=== PATIENT | female | born 1940 | race Caucasian/White ===

== ENCOUNTER → 2016-11-19 | Outpatient (CLI) | payer OTHER ==
[~2016-11-19] MED LIST: ALBU0.08 INH; ASPI81TA28 PO; BACL10TA PO; CLOP1TAB54 PO; COEN100C15 PO; DILT-115 PO; FURO-85 PO; ISOS120T5 PO; MAGN400T6 PO; METO25TA56 PO; MULT-506 PO; NITR0.4S UT; POTA10TA32 PO; PRAV20TA PO; SITA100T3 PO
--- NOTE | 2016-11-19 11:56 | DIAGNOSTIC IMAGING REPORT ---
ULTRASOUND VENOUS DOPPLER ULTRASOUND OF THE RIGHT LOWER EXTREMITY CLINICAL HISTORY: Right calf pain COMPARISON STUDY: 01/05/2015 FINDINGS: Real-time and color flow Doppler imaging were performed. Flow was seen within the femoral, popliteal and calf veins with no intraluminal thrombus demonstrated. The saphenous vein is patent. IMPRESSION: No evidence of right lower extremity DVT. Electronically signed by: Wisam Stover M.D. 11/19/2016 11:54 AM Dictated Date/Time: 11/19/2016 11:54 AM
== END | disposition home or self-care (01) ==
LOC: C.ULTR 11:20
PROVIDERS: ATTEND Nurse Practitioner
DX: M79.661 Pain in right lower leg (principal)

== ENCOUNTER → 2016-12-17 | Outpatient (CLI) | payer OTHER ==
[~2016-12-17] MED LIST changes: +ALBINS/ INH; +BENZ100C6 PO; +CRG625 PO; +DILT-113 PO; +FAMO40TA6 PO; +MOME100A INH; +OXGN; +POTA20TA16 PO; +PRAV80TA2 PO; +PRT40 PO; +VNTHFA/IN INH
[2016-12-17 17:37] LABS: ALT/SGPT 17 U/L (12-78); AST/SGOT 17 U/L (15-37); BLOOD UREA NITROGEN 16 mg/dl (7-18); BUN/CREATININE RATIO 14.9 (10-20); CALCIUM 9.6 mg/dl (8.5-10.1); CARBON DIOXIDE 31 mmol/L (21-32); CHLORIDE 105 mmol/L (98-107); GLUCOSE 134 mg/dl (70-99); POTASSIUM 4.1 mmol/L (3.5-5.1); SODIUM 140 mmol/L (136-145)
[2016-12-17 17:40] LABS: ALB/GLOB RATIO 0.7 (0.9-2); ALKALINE PHOSPHATASE 77 U/L (45-117); ESTIMATED AVERAGE GLUCOSE 146 mg/dl; HA1C FLAG Normal (Normal)
== END | disposition home or self-care (01) ==
LOC: C.LABPVFM 13:24
PROVIDERS: ATTEND Nurse Practitioner
DX: E11.9 Type 2 diabetes mellitus without complications (principal); I10 Essential (primary) hypertension; E87.6 Hypokalemia

== ENCOUNTER → 2017-07-14 | Outpatient (CLI) | payer OTHER ==
[~2017-07-14] MED LIST changes: -ALBINS/ INH; -BENZ100C6 PO; -CRG625 PO; -DILT-113 PO; -FAMO40TA6 PO; -MOME100A INH; -OXGN; -POTA20TA16 PO; -PRAV80TA2 PO; -PRT40 PO; -VNTHFA/IN INH
[2017-07-14 17:57] LABS: BLOOD UREA NITROGEN 21 mg/dl (7-18); BUN/CREATININE RATIO 18.3 (10-20); CALCIUM 9.3 mg/dl (8.5-10.1); CARBON DIOXIDE 29 mmol/L (21-32); CHLORIDE 101 mmol/L (98-107); CREATININE 1.16 mg/dl (0.60-1.20); GLUCOSE 110 mg/dl (70-99); POTASSIUM 3.7 mmol/L (3.5-5.1); SODIUM 137 mmol/L (136-145)
[2017-07-15 05:53] LABS: ESTIMATED AVERAGE GLUCOSE 137 mg/dl; HA1C FLAG Normal (Normal)
== END | disposition home or self-care (01) ==
LOC: C.LABPVFM 14:22
PROVIDERS: ATTEND Nurse Practitioner
DX: R06.00 Dyspnea, unspecified (principal); M79.669 Pain in unspecified lower leg; R53.1 Weakness; R63.5 Abnormal weight gain; E11.9 Type 2 diabetes mellitus without complications

== ENCOUNTER 2017-08-04 06:46 | Observation (INO) | payer OTHER ==
[~2017-08-04] VITALS: Ht 165.1 cm; Wt 116.1 kg
[2017-08-04] VITALS (7 sets, daily range): BP systolic 113–198; BP diastolic 70–87; PULSE 51–91; TEMP 36.4–37.5; O2SAT 92–100; Ht 165.1 cm; Wt 116.1 kg
--- NOTE | 2017-08-04 07:03 | EMERGENCY ROOM VISIT NOTE ---
ED Visit Note First contact with patient: 07:00 Resident Physician Supervision Note: I interviewed and examined the patient. Discussed with Dr. Arceo and agree with findings and plan as documented in the note. Documented By: Herrera Storey Problem List Medical Problems: (1) Anticoagulants,Lt,Current Use Status: Resolved (2) Aortic Valve Disorder Status: Chronic (3) Coronary Atherosclerosis Of [place] Coronary Vessel Status: Chronic (4) Diabetes Status: Chronic (5) Diverticulosis Colon (W/O Ment Of Hemorrhage) Status: Chronic (6) Heart Valve Replac Nec Status: Chronic (7) Hx of bronchitis Status: Chronic (8) Hyperlipidemia Nec/Nos Status: Chronic (9) Hypertension Nos Status: Chronic (10) Stented coronary artery Status: Chronic Current/Historical Medications Scheduled Aspirin (Aspirin Ec), 81 MG PO DAILY Clopidogrel Bisulfate (Plavix), 75 MG PO DAILY Coenzyme Q10 (Ubidecarenone) (Co Q10), 100 MG PO QPM Diltiazem Hcl Ext Rel (Tiazac), 240 MG PO DAILY Furosemide (Lasix), 40 MG PO DAILY Furosemide (Lasix), 20 MG PO QPM Isosorbide Mononitrate Ext Rel (Imdur Ext Rel), 120 MG PO BID Magnesium Oxide (Mag-Ox), 400 MG PO DAILY Metoprolol Tartrate (Lopressor) (Lopressor), 12.5 MG PO BID Multivitamin (Multivitamin), 1 TAB PO DAILY Nitroglycerin (Nitrostat), 0.4 MG UT PRN Potassium Chloride Microencaps (Potassium Chloride Er), 10 MEQ PO DAILY Pravastatin Sodium (Pravachol), 80 MG PO HS Sitagliptin Phosphate (Januvia), 100 MG PO DAILY Scheduled PRN Albuterol Soln (Proventil 0.083% 2.5MG/3ML), 2.5 MG INH QID PRN for TIGHTNESS CHEST Baclofen (Lioresal), 10 MG PO TID PRN for Muscle Spasms Allergies Coded Allergies: Cephalosporins (Verified Allergy, Mild, 03/06/16) Hydrocodone (Verified Allergy, Mild, 03/06/16) Neomycin (Verified Allergy, Mild, 03/06/16) Propoxyphene (Verified Allergy, Mild, 03/06/16) Sulfa Drugs (Verified Allergy, Mild, 03/06/16) Doxycycline (Verified Allergy, Unknown, UNKNOWN, 03/06/16) Vital Signs Date Time Temp Pulse Resp B/P (MAP) Pulse Ox O2 Delivery O2 Flow Rate FiO2 08/04/17 07:02 65 Departure Information Referrals Hilaria Myers C.R.N.P (PCP) Patient Instructions [facility]
[2017-08-04 07:23] LABS: BASO % 0.3 %; BASO ABS # 0.03 K/uL (0-0.2); COMPLETE YES; EOS % 1.8 %; HEMATOCRIT 37.8 % (37-47); IG% 0.3 %; LYMPH % 13.4 %; LYMPH ABS # 1.33 K/uL (1.2-3.4); MEAN CELL VOLUME 98.7 fL (80-100); MEAN CORPUSCULAR HEMOGLOBIN 34.2 pg (25-34); MEAN CORPUSCULAR HGB CONC 34.7 g/dl (32-36); MEAN PLATELET VOLUME 10.6 fL (7.4-10.4); MONO % 8.2 %; PLATELET COUNT 207 K/uL (130-400); RED BLOOD COUNT 3.83 M/uL (4.2-5.4)
[2017-08-04] MEDS ORDERED: NITROGLYCERIN OINT 2% 1GM PACKET EXT ONE (07:30)
[2017-08-04 07:33] LABS: ALT/SGPT 16 U/L (12-78); AST/SGOT 15 U/L (15-37); BLOOD UREA NITROGEN 25 mg/dl (7-18); BUN/CREATININE RATIO 18.3 (10-20); CALCIUM 8.7 mg/dl (8.5-10.1); CARBON DIOXIDE 26 mmol/L (21-32); CHLORIDE 101 mmol/L (98-107); CREATININE 1.39 mg/dl (0.60-1.20); GLUCOSE 169 mg/dl (70-99); POTASSIUM 3.3 mmol/L (3.5-5.1); SODIUM 132 mmol/L (136-145)
[2017-08-04 07:39] LABS: ALB/GLOB RATIO 0.7 (0.9-2); ALKALINE PHOSPHATASE 89 U/L (45-117)
--- NOTE | 2017-08-04 07:45 | EMERGENCY ROOM VISIT NOTE ---
History First contact with patient: 07:00 Chief Complaint: CHEST PAIN Stated Complaint: CHEST PAIN Nursing Triage Summary: pt awoke at 0400am with midsternal chest pain, some radiation into right arm pt took 3 ntg with no relief this am, ems gave her 325mg asa pt has copd and has nonproductive cough was diaphoretic and did have emesis has hypertension and did not take am meds History of Present Illness The patient is a 77 year old female who presents to the Emergency Room with complaints of chest pain since 4am. Patient has a PMH significant for bioprosthetic aortic valve, HTN, HLD, CAD, COPD and angina. She says that yesterday she had two episodes of angina that were relieved with two sublingual nitro. She said that she went to bed and was awaken at 4 am again with substernal chest pain, described as tight and dull. The patient proceed to take her nitro tabs. This time her pain persisted and she became diaphoretic and nauseated. The patient was given 4 aspirin in the ambulance. She came into the ED without remission in her pain symptoms. Patient describes chronic SOB on 3 L home O2. She denies cough, LE swelling, syncope. Review of Systems see below Constitutional: + sweats, No fever, No chills Respiratory: No cough, No sputum, No wheezing, No shortness of breath, No dyspnea on exertion Cardiovascular: + chest pain, No edema, No palpitations Abdomen: No pain, No nausea, No vomiting, No diarrhea Past Medical/Surgical History Medical Problems: (1) Anticoagulants,Lt,Current Use (2) Aortic Valve Disorder (3) Coronary Atherosclerosis Of [place] Coronary Vessel (4) Diabetes (5) Diverticulosis Colon (W/O Ment Of Hemorrhage) (6) Heart Valve Replac Nec (7) Hx of bronchitis (8) Hyperlipidemia Nec/Nos (9) Hypertension Nos (10) Stented coronary artery Family History FHx: diabetes FHx: heart disease FHx: hypertension Social History Smoking Status: Never Smoker Alcohol Use: none Drug Use: none Marital Status: Housing Status: lives alone Occupation Status: retired Current/Historical Medications Scheduled Albuterol Sulf (Proventil 0.083% 2.5MG/3ML), 2.5 MG INH BID Aspirin (Aspirin Ec), 81 MG PO DAILY Clopidogrel Bisulfate (Plavix), 75 MG PO DAILY Coenzyme Q10 (Ubidecarenone) (Co Q10), 100 MG PO QPM Diltiazem Hcl Ext Rel (Tiazac), 240 MG PO DAILY Famotidine (Pepcid), 40 MG PO DAILY Furosemide (Lasix), 20 MG PO TID Home O2 Therapy (Oxygen), 3 LITERS NA PRN Isosorbide Mononitrate Ext Rel (Imdur Ext Rel), 120 MG PO BID Magnesium Oxide (Mag-Ox), 400 MG PO DAILY Metoprolol Tartrate (Lopressor) (Lopressor), 12.5 MG PO BID Mometasone Furoate-Formoterol (Dulera 100/5 Mcg), 1 PUFF INH BID Multivitamin (Multivitamin), 1 TAB PO DAILY Nitroglycerin (Nitrostat), 0.4 MG UT PRN Potassium Chloride Microencaps (Potassium Chloride Er), 10 MEQ PO DAILY Potassium Ext Rel (Klor-Con), 20 MEQ PO DAILY Pravastatin Sodium (Pravastatin Sodium), 80 MG PO QPM Sitagliptin Phosphate (Januvia), 100 MG PO DAILY Scheduled PRN Albuterol Hfa (Ventolin Hfa), 2-4 PUFFS INH Q6H PRN for SOB/Wheezing Benzonatate (Tessalon Perles), 1 CAP PO UD PRN for Cough Physical Exam Vital Signs Date Time Temp Pulse Resp B/P (MAP) Pulse Ox O2 Delivery O2 Flow Rate FiO2 08/04/17 10:56 36.6 65 20 158/76 (103) 98 Nasal Cannula 3.0 08/04/17 10:45 60 20 146/113 99 Nasal Cannula 3.0 08/04/17 10:37 36.4 67 20 198/87 100 Nasal Cannula 3.0 08/04/17 10:11 58 08/04/17 09:01 198/87 08/04/17 08:51 59 20 99 08/04/17 08:36 197/75 08/04/17 08:21 65 19 99 08/04/17 08:14 205/83 08/04/17 07:51 60 20 100 08/04/17 07:46 60 21 100 08/04/17 07:31 207/82 08/04/17 07:16 60 22 98 08/04/17 07:08 99 Nasal Cannula 3.0 08/04/17 07:02 65 08/04/17 07:01 211/125 08/04/17 06:58 36.4 64 20 212/81 99 Nasal Cannula 3.0 08/04/17 06:58 99 Nasal Cannula 3.0 08/04/17 06:56 212/81 Physical Exam see below General Appearance: WD/WN, + mild distress Head: normocephalic, atraumatic Respiratory/Chest: chest non-tender, lungs clear, + decreased breath sounds Cardiovascular: regular rate, rhythm, no edema, no gallop, no JVD Abdomen / GI: normal bowel sounds, non tender, soft, no organomegaly, no pulsatile mass Neurologic/Psych: alert, normal mood/affect, normal reflexes, oriented x 3 Medical Decision & Procedures Laboratory Results 08/04/17 06:30 Red Blood Count 3.83, Mean Corpuscular Volume 98.7, Mean Corpuscular Hemoglobin 34.2, Mean Corpuscular Hemoglobin Concent 34.7, Mean Platelet Volume 10.6, Neutrophils (%) (Auto) 76.0, Lymphocytes (%) (Auto) 13.4, Monocytes (%) (Auto) 8.2, Eosinophils (%) (Auto) 1.8, Basophils (%) (Auto) 0.3, Neutrophils # (Auto) 7.52, Lymphocytes # (Auto) 1.33, Monocytes # (Auto) 0.81, Eosinophils # (Auto) 0.18, Basophils # (Auto) 0.03 08/04/17 06:30 Test 08/04/17 06:30 08/04/17 11:20 White Blood Count 9.90 K/uL (4.8-10.8) Red Blood Count 3.83 M/uL (4.2-5.4) Hemoglobin 13.1 g/dL (12.0-16.0) Hematocrit 37.8 % (37-47) Mean Corpuscular Volume 98.7 fL (80-100) Mean Corpuscular Hemoglobin 34.2 pg (25-34) Mean Corpuscular Hemoglobin Concent 34.7 g/dl (32-36) Platelet Count 207 K/uL (130-400) Mean Platelet Volume 10.6 fL (7.4-10.4) Neutrophils (%) (Auto) 76.0 % Lymphocytes (%) (Auto) 13.4 % Monocytes (%) (Auto) 8.2 % Eosinophils (%) (Auto) 1.8 % Basophils (%) (Auto) 0.3 % Neutrophils # (Auto) 7.52 K/uL (1.4-6.5) Lymphocytes # (Auto) 1.33 K/uL (1.2-3.4) Monocytes # (Auto) 0.81 K/uL (0.11-0.59) Eosinophils # (Auto) 0.18 K/uL (0-0.5) Basophils # (Auto) 0.03 K/uL (0-0.2) RDW Standard Deviation 47.3 fL (36.4-46.3) RDW Coefficient of Variation 13.1 % (11.5-14.5) Immature Granulocyte % (Auto) 0.3 % Immature Granulocyte # (Auto) 0.03 K/uL (0.00-0.02) Anion Gap 5.0 mmol/L (3-11) Est Creatinine Clear Calc Drug Dose 42.8 ml/min Estimated GFR () 42.0 Estimated GFR (Non- 36.2 BUN/Creatinine Ratio 18.3 (10-20) Calcium Level 8.7 mg/dl (8.5-10.1) Total Bilirubin 0.3 mg/dl (0.2-1) Aspartate Amino Transf (AST/SGOT) 15 U/L (15-37) Alanine Aminotransferase (ALT/SGPT) 16 U/L (12-78) Alkaline Phosphatase 89 U/L (45-117) Total Protein 8.4 gm/dl (6.4-8.2) Albumin 3.5 gm/dl (3.4-5.0) Globulin 4.9 gm/dl (2.5-4.0) Albumin/Globulin Ratio 0.7 (0.9-2) Lipase 149 U/L (73-393) Bedside Glucose 147 mg/dl (70-90) Medications Administered Medications (Trade) Dose Ordered Sig/Trixie Route Start Time Stop Time Status Last Admin Dose Admin Nitroglycerin (Nitroglycerin 2% Oint) 1 inch NOW ONCE EXT 08/04/17 07:30 08/04/17 07:31 DC 08/04/17 07:41 1 INCH Morphine Sulfate (MoRPHine SULFATE INJ) 4 mg NOW STAT IV 08/04/17 07:59 08/04/17 08:02 DC 08/04/17 08:30 4 MG Ondansetron HCl (Zofran Inj) 4 mg NOW STAT IV 08/04/17 07:59 08/04/17 08:02 DC 08/04/17 08:29 4 MG Potassium Chloride (Janice Ciel Elix) 40 meq NOW STAT PO 08/04/17 08:05 08/04/17 08:07 DC 08/04/17 08:28 40 MEQ Aspirin (Ecotrin Tab) 81 mg DAILY PO 08/04/17 10:00 09/03/17 09:59 08/04/17 12:35 81 MG Clopidogrel Bisulfate (plAVix TAB) 75 mg DAILY PO 08/04/17 10:00 09/03/17 09:59 08/04/17 12:35 75 MG Diltiazem HCl (TIAzac CAP) 240 mg DAILY PO 08/04/17 10:00 09/03/17 09:59 08/04/17 12:58 240 MG Famotidine (Pepcid Tab) 40 mg DAILY PO 08/04/17 10:00 09/03/17 09:59 08/04/17 12:34 40 MG Isosorbide Mononitrate (Imdur Ext Rel Tab) 120 mg BID PO 08/04/17 10:00 09/03/17 09:59 08/04/17 12:35 120 MG Magnesium Oxide (Mag-Ox Tab) 400 mg DAILY PO 08/04/17 10:00 09/03/17 09:59 08/04/17 12:34 400 MG Metoprolol Tartrate (Lopressor Tab) 12.5 mg BID PO 08/04/17 10:00 09/03/17 09:59 08/04/17 12:34 12.5 MG Multivitamins (Multivitamin Tab) 1 tab DAILY PO 08/04/17 10:00 09/03/17 09:59 08/04/17 12:35 1 TAB Potassium Chloride (Klor-Con Tab) 20 meq DAILY PO 08/04/17 10:00 09/03/17 09:59 08/04/17 12:36 20 MEQ Pantoprazole Sodium (Protonix Tab) 40 mg QAM PO 08/04/17 10:00 09/03/17 09:59 08/04/17 12:35 40 MG ECG Rhythm: normal sinus Findings: nonspecific-ST abn, no ectopy ED Course 700 History and Physical was performed on the patient 715 ordered the following labs and test; EKG, CXR, Troponin, CKMB, CBC, CMP, Lipase, CT for dissection and CT for PE 730 Reaccessed the patient 745 Patient given nitro paste, zofran 4 mg, morphine 4 mg and potassium [address] 915 Discussed patient with the hospitalist team Medical Decision 77 yo female with substernal chest pain since 4am Considering the following differential; ACS, unstable anginal, aortic dissection , PE, pleuritis, costochondritis Patients BP was 211/125 on presentation. Patient was given nitro paste. EKG showed NSR with some flat T waves, but no ectopy. Initial trop was 0.027 Patient was given Morphine for pain and Zofran for nausea as well as potassium. CT were negative for dissection and PE. No signs of acute heart failure on exam or CXR. Considering the patient's presenting and persistent chest pain symptoms, coupled with her PMH of CAD and aortic valve replacement requires further inpatient observation and workup. Discussed the admission with Dr. Duron. Impression Primary Impression: Chest pain Departure Information Dispostion Admitted as an inpatient Referrals Hilaria Myers C.R.N.P (PCP) Patient Instructions [facility]
[2017-08-04] MEDS ORDERED: ONDANSETRON INJ 2 MG/ML 2 ML VIAL IV STA (07:59)
[2017-08-04] MEDS ORDERED: MoRPHine SULFATE 4 MG/ML 1 ML CARP\\VIAL IV STA (07:59)
--- NOTE | 2017-08-04 08:01 | DIAGNOSTIC IMAGING REPORT ---
CHEST ONE VIEW PORTABLE CLINICAL HISTORY: Chest pain. COMPARISON STUDY: Chest radiograph November 10, [address] November 11, 2014. FINDINGS: Note is made of median sternotomy wires and a prosthetic aortic valve. Cardiomediastinal silhouette is stable allowing for patient rotation. There is no pneumothorax. There may be a small left pleural effusion with left basilar opacity. There is pulmonary vascular congestion without overt pulmonary edema. IMPRESSION: 1. Mild left basilar opacity with a possible small left pleural effusion. 2. Pulmonary vascular congestion. Electronically signed by: Jefferson Landaverde M.D. 08/04/2017 8:00 AM Dictated Date/Time: 08/04/2017 7:58 AM
[2017-08-04] MEDS ORDERED: POTASSIUM CHLORIDE 20 MEQ/15 ML UDC PO STA (08:05)
[2017-08-04] MEDS ORDERED: OPTIRAY 320 IV PRN (08:15)
--- NOTE | 2017-08-04 08:28 | DIAGNOSTIC IMAGING REPORT ---
CHEST COMBO ANGIO DISSECTION HISTORY: 77 years-old female presents with acute substernal chest pain. History of lobulated partially calcified paraspinal mass lesion COMPARISON: CT chest 11/11/2016 and 10/16/2009 TECHNIQUE: CTA of the chest was obtained both with and without the use of contrast. 93 mL Optiray 320 IV contrast was administered. 3-D coronal and sagittal MIPS were obtained from the data set and cemented for review. A dose lowering technique was used consistent with the principals of BRENDA. All measurements were obtained according to NASCET criteria. FINDINGS: CTA: On the noncontrast scan there is no evidence of intramural hematoma. There is moderate multichamber cardiac enlargement. Prior median sternotomy with prosthetic aortic valve present. Dense calcifications of the mitral annulus are noted. Coronary arterial disease. There is no aortic dissection or aneurysm identified. There is moderate to severe mixed atheromatous and atherosclerotic plaquing of the thoracic aorta. Image great vessels are patent. The opacified pulmonary arterial tree is unremarkable without focal filling defect to suggest pulmonary thromboembolic disease. CT CHEST: Multinodular thyroid with nodule of the right thyroid measuring up to 2.2 x 1.5 cm. Calcifications of the right thyroid are also seen. These findings appear unchanged from comparison study. There is no pathologic adenopathy of the chest identified. There is redemonstration of a lobulated partially calcified ovoid circumscribed left paraspinal lesion at the level of the medial basal left lower lobe, 8.2 x 2.5 cm which has slightly decreased in size from comparison study. This was also noted on comparison CT chest 10/16/2009 suggesting benign etiology. There is no pneumothorax, pleural effusion, focal airspace consolidation or overt pulmonary edema. Subpleural reticular opacities of the lung bases suggest areas of atelectasis and/or minimal scarring. No suspicious pulmonary nodules identified. Central airways are patent. Cholelithiasis. No acute mildly of the imaged upper abdomen. Bones of the chest appear grossly intact. Degenerative changes involve the bilateral shoulders. The bones appear mildly demineralized. Multilevel endplate spurring of the spine. IMPRESSION: 1. No acute intrathoracic abnormality identified, specifically no aortic dissection or aneurysm. 2. Cardiomegaly with prior median sternotomy and aortic valve replacement. 3. Partially calcified soft tissue attenuating left paraspinal lesion at the level of the basal left lower lobe has slightly decreased in size from comparison study. This has been present dating back to at least 10/16/2009 suggesting benign etiology. The above report was generated using voice recognition software. It may contain grammatical, syntax or spelling errors. Electronically signed by: Tonny Bethea M.D. 08/04/2017 8:26 AM Dictated Date/Time: 08/04/2017 8:17 AM
[2017-08-04] MEDS ORDERED: ALBINS/ INH (08:41)
[2017-08-04] MEDS ORDERED: POTA20TA16 PO (08:41)
[2017-08-04] MEDS ORDERED: OXGN (08:41)
[2017-08-04] MEDS ORDERED: PRAV80TA2 PO (08:41)
[2017-08-04] MEDS ORDERED: FAMO40TA6 PO (08:41)
[2017-08-04] MEDS ORDERED: BENZ100C6 PO (08:41)
[2017-08-04] MEDS ORDERED: MOME100A INH (08:44)
[2017-08-04] MEDS ORDERED: VNTHFA/IN INH (08:44)
[2017-08-04] MEDS ORDERED: POLYETHYLENE (MIRALAX) 17 GM PACK PO PRN (10:00)
[2017-08-04] MEDS ORDERED: MoRPHine SULFATE 2 MG/ML CARP IV PRN (10:00)
[2017-08-04] MEDS ORDERED: ACETAMINOPHEN 325 MG TAB PO PRN (10:00)
[2017-08-04] MEDS ORDERED: MAGNESIUM HYDROXIDE SUSP 30 ML UDC PO PRN (10:00)
[2017-08-04] MEDS ORDERED: GI COCKTAIL PO SCH (10:00)
[2017-08-04] MEDS ORDERED: ALBUTEROL HFA 8 GM INHALER INH PRN (10:00)
[2017-08-04] MEDS ORDERED: ALUMINUM/MAGNESIUM/SIMETH (MAALOX MAX) 30 ML UDC PO PRN (10:00)
[2017-08-04] MEDS ORDERED: HydrALAZINE HCL 20 MG/ML VIAL IV. PRN (10:00)
[2017-08-04] MEDS ORDERED: ONDANSETRON INJ 2 MG/ML 2 ML VIAL IV PRN (10:00)
--- NOTE | 2017-08-04 10:29 | EMERGENCY ROOM VISIT NOTE ---
History Report prepared by Amber: Jocelyn Mas Under the Supervision of: Dr. Herrera Storey M.D. First contact with patient: 07:00 Chief Complaint: CHEST PAIN Stated Complaint: CHEST PAIN Nursing Triage Summary: pt awoke at 0400am with midsternal chest pain, some radiation into right arm pt took 3 ntg with no relief this am, ems gave her 325mg asa pt has copd and has nonproductive cough was diaphoretic and did have emesis has hypertension and did not take am meds History of Present Illness The patient is a 77 year old female who presents to the Emergency Room with complaints of persistent chest pain that began three hours prior to arrival. She currently rates her discomfort as an 8/10 in severity. The patient states that she woke around 0400 with chest pain that radiated into her right arm. She states that she tried taking 3 nitroglycerin without relief and EMS additionally reports giving the patient 325 mg of aspirin without relief. The patient states that she has a history of COPD and has a nonproductive cough. She states that she has been diaphoretic and she vomited. The patient reports a history of hypertension and states that she did not take her medication this morning. She states that she has a history of heart disease, but is unsure specific diagnoses. The patient denies any abdominal pain. Source of History: patient, EMS Onset: three hours prior to arrival Position: chest Symptom Intensity: 8/10 Timing: other (persistent) Associated Symptoms: + diaphoresis, + cough, + vomiting, No abdominal pain Review of Systems See HPI for pertinent positives & negatives. A total of 10 systems reviewed and were otherwise negative. Past Medical & Surgical Medical Problems: (1) Anticoagulants,Lt,Current Use (2) Aortic Valve Disorder (3) Coronary Atherosclerosis Of [place] Coronary Vessel (4) Diabetes (5) Diverticulosis Colon (W/O Ment Of Hemorrhage) (6) Heart Valve Replac Nec (7) Hx of bronchitis (8) Hyperlipidemia Nec/Nos (9) Hypertension Nos (10) Stented coronary artery Family History FHx: diabetes FHx: heart disease FHx: hypertension Social History Smoking Status: Never Smoker Alcohol Use: none Drug Use: none Marital Status: Housing Status: lives alone Occupation Status: retired Current/Historical Medications Scheduled Albuterol Sulf (Proventil 0.083% 2.5MG/3ML), 2.5 MG INH BID Aspirin (Aspirin Ec), 81 MG PO DAILY Clopidogrel Bisulfate (Plavix), 75 MG PO DAILY Coenzyme Q10 (Ubidecarenone) (Co Q10), 100 MG PO QPM Diltiazem Hcl Ext Rel (Tiazac), 240 MG PO DAILY Famotidine (Pepcid), 40 MG PO DAILY Furosemide (Lasix), 20 MG PO TID Home O2 Therapy (Oxygen), 3 LITERS NA PRN Isosorbide Mononitrate Ext Rel (Imdur Ext Rel), 120 MG PO BID Magnesium Oxide (Mag-Ox), 400 MG PO DAILY Metoprolol Tartrate (Lopressor) (Lopressor), 12.5 MG PO BID Mometasone Furoate-Formoterol (Dulera 100/5 Mcg), 1 PUFF INH BID Multivitamin (Multivitamin), 1 TAB PO DAILY Nitroglycerin (Nitrostat), 0.4 MG UT PRN Pantoprazole (Pantoprazole Sodium), 40 MG PO QAM Potassium Chloride Microencaps (Potassium Chloride Er), 10 MEQ PO DAILY Potassium Ext Rel (Klor-Con), 20 MEQ PO DAILY Pravastatin Sodium (Pravastatin Sodium), 80 MG PO QPM Sitagliptin Phosphate (Januvia), 100 MG PO DAILY Scheduled PRN Albuterol Hfa (Ventolin Hfa), 2-4 PUFFS INH Q6H PRN for SOB/Wheezing Benzonatate (Tessalon Perles), 1 CAP PO UD PRN for Cough Allergies Coded Allergies: Cephalosporins (Verified Allergy, Mild, 08/04/17) Hydrocodone (Verified Allergy, Mild, 08/04/17) Neomycin (Verified Allergy, Mild, 08/04/17) Propoxyphene (Verified Allergy, Mild, 08/04/17) Doxycycline (Verified Allergy, Unknown, UNKNOWN, 08/04/17) Sulfa Antibiotics (Verified Allergy, Unknown, ., 08/04/17) Physical Exam Vital Signs Date Time Temp Pulse Resp B/P (MAP) Pulse Ox O2 Delivery O2 Flow Rate FiO2 08/04/17 10:56 36.6 65 20 158/76 (103) 98 Nasal Cannula 3.0 08/04/17 10:45 60 20 146/113 99 Nasal Cannula 3.0 08/04/17 10:37 36.4 67 20 198/87 100 Nasal Cannula 3.0 08/04/17 10:11 58 08/04/17 09:01 198/87 08/04/17 08:51 59 20 99 08/04/17 08:36 197/75 08/04/17 08:21 65 19 99 08/04/17 08:14 205/83 08/04/17 07:51 60 20 100 08/04/17 07:46 60 21 100 08/04/17 07:31 207/82 08/04/17 07:16 60 22 98 08/04/17 07:08 99 Nasal Cannula 3.0 08/04/17 07:02 65 08/04/17 07:01 211/125 08/04/17 06:58 36.4 64 20 212/81 99 Nasal Cannula 3.0 08/04/17 06:58 99 Nasal Cannula 3.0 08/04/17 06:56 212/81 Physical Exam GENERAL: Patient is a healthy-appearing well-nourished female HEAD: Normocephalic atraumatic EYES: Ocular movements intact pupils equal and react to light OROPHARYNX mucous membranes are moist no exudates present no erythema or edema present NECK: Supple no nuchal rigidity CHEST: Good equal expansion LUNGS: Clear and equal to auscultation CARDIAC: Normal S1 and S2 ABDOMEN: Soft nontender no guarding BACK: No CVA tenderness EXTREMITIES: No pain upon palpation normal muscle strength in all groups no clubbing cyanosis or edema NEURO: Patient is following commands and answering questions appropriately. Alert and oriented x3 Cranial Nerves 2-12 grossly intact Medical Decision & Procedures ER Provider Diagnostic Interpretation: X-ray results as stated below per interpretation by me and the radiologist: CHEST ONE VIEW PORTABLE CLINICAL HISTORY: Chest pain. COMPARISON STUDY: Chest radiograph November 10, [address] November 11, 2014. FINDINGS: Note is made of median sternotomy wires and a prosthetic aortic valve. Cardiomediastinal silhouette is stable allowing for patient rotation. There is no pneumothorax. There may be a small left pleural effusion with left basilar opacity. There is pulmonary vascular congestion without overt pulmonary edema. IMPRESSION: 1. Mild left basilar opacity with a possible small left pleural effusion. 2. Pulmonary vascular congestion. Electronically signed by: Jefferson Landaverde M.D. 08/04/2017 8:00 AM Dictated Date/Time: 08/04/2017 7:58 AM CHEST COMBO ANGIO DISSECTION HISTORY: 77 years-old female presents with acute substernal chest pain. History of lobulated partially calcified paraspinal mass lesion COMPARISON: CT chest 11/11/2016 and 10/16/2009 TECHNIQUE: CTA of the chest was obtained both with and without the use of contrast. 93 mL Optiray 320 IV contrast was administered. 3-D coronal and sagittal MIPS were obtained from the data set and cemented for review. A dose lowering technique was used consistent with the principals of BRENDA. All measurements were obtained according to NASCET criteria. FINDINGS: CTA: On the noncontrast scan there is no evidence of intramural hematoma. There is moderate multichamber cardiac enlargement. Prior median sternotomy with prosthetic aortic valve present. Dense calcifications of the mitral annulus are noted. Coronary arterial disease. There is no aortic dissection or aneurysm identified. There is moderate to severe mixed atheromatous and atherosclerotic plaquing of the thoracic aorta. Image great vessels are patent. The opacified pulmonary arterial tree is unremarkable without focal filling defect to suggest pulmonary thromboembolic disease. CT CHEST: Multinodular thyroid with nodule of the right thyroid measuring up to 2.2 x 1.5 cm. Calcifications of the right thyroid are also seen. These findings appear unchanged from comparison study. There is no pathologic adenopathy of the chest identified. There is redemonstration of a lobulated partially calcified ovoid circumscribed left paraspinal lesion at the level of the medial basal left lower lobe, 8.2 x 2.5 cm which has slightly decreased in size from comparison study. This was also noted on comparison CT chest 10/16/2009 suggesting benign etiology. There is no pneumothorax, pleural effusion, focal airspace consolidation or overt pulmonary edema. Subpleural reticular opacities of the lung bases suggest areas of atelectasis and/or minimal scarring. No suspicious pulmonary nodules identified. Central airways are patent. Cholelithiasis. No acute mildly of the imaged upper abdomen. Bones of the chest appear grossly intact. Degenerative changes involve the bilateral shoulders. The bones appear mildly demineralized. Multilevel endplate spurring of the spine. IMPRESSION: 1. No acute intrathoracic abnormality identified, specifically no aortic dissection or aneurysm. 2. Cardiomegaly with prior median sternotomy and aortic valve replacement. 3. Partially calcified soft tissue attenuating left paraspinal lesion at the level of the basal left lower lobe has slightly decreased in size from comparison study. This has been present dating back to at least 10/16/2009 suggesting benign etiology. The above report was generated using voice recognition software. It may contain grammatical, syntax or spelling errors. Electronically signed by: Tonny Bethea M.D. 08/04/2017 8:26 AM Dictated Date/Time: 08/04/2017 8:17 AM Laboratory Results 08/04/17 06:30 Red Blood Count 3.83, Mean Corpuscular Volume 98.7, Mean Corpuscular Hemoglobin 34.2, Mean Corpuscular Hemoglobin Concent 34.7, Mean Platelet Volume 10.6, Neutrophils (%) (Auto) 76.0, Lymphocytes (%) (Auto) 13.4, Monocytes (%) (Auto) 8.2, Eosinophils (%) (Auto) 1.8, Basophils (%) (Auto) 0.3, Neutrophils # (Auto) 7.52, Lymphocytes # (Auto) 1.33, Monocytes # (Auto) 0.81, Eosinophils # (Auto) 0.18, Basophils # (Auto) 0.03 Test 08/04/17 06:30 White Blood Count 9.90 K/uL (4.8-10.8) Red Blood Count 3.83 M/uL (4.2-5.4) Hemoglobin 13.1 g/dL (12.0-16.0) Hematocrit 37.8 % (37-47) Mean Corpuscular Volume 98.7 fL (80-100) Mean Corpuscular Hemoglobin 34.2 pg (25-34) Mean Corpuscular Hemoglobin Concent 34.7 g/dl (32-36) Platelet Count 207 K/uL (130-400) Mean Platelet Volume 10.6 fL (7.4-10.4) Neutrophils (%) (Auto) 76.0 % Lymphocytes (%) (Auto) 13.4 % Monocytes (%) (Auto) 8.2 % Eosinophils (%) (Auto) 1.8 % Basophils (%) (Auto) 0.3 % Neutrophils # (Auto) 7.52 K/uL (1.4-6.5) Lymphocytes # (Auto) 1.33 K/uL (1.2-3.4) Monocytes # (Auto) 0.81 K/uL (0.11-0.59) Eosinophils # (Auto) 0.18 K/uL (0-0.5) Basophils # (Auto) 0.03 K/uL (0-0.2) RDW Standard Deviation 47.3 fL (36.4-46.3) RDW Coefficient of Variation 13.1 % (11.5-14.5) Immature Granulocyte % (Auto) 0.3 % Immature Granulocyte # (Auto) 0.03 K/uL (0.00-0.02) Total Bilirubin 0.3 mg/dl (0.2-1) Aspartate Amino Transf (AST/SGOT) 15 U/L (15-37) Alanine Aminotransferase (ALT/SGPT) 16 U/L (12-78) Alkaline Phosphatase 89 U/L (45-117) Total Protein 8.4 gm/dl (6.4-8.2) Albumin 3.5 gm/dl (3.4-5.0) Globulin 4.9 gm/dl (2.5-4.0) Albumin/Globulin Ratio 0.7 (0.9-2) Lipase 149 U/L (73-393) Labs reviewed by ED physician. Medications Administered Medications (Trade) Dose Ordered Sig/Trixie Route Start Time Stop Time Status Last Admin Dose Admin Nitroglycerin (Nitroglycerin 2% Oint) 1 inch NOW ONCE EXT 08/04/17 07:30 08/04/17 07:31 DC 08/04/17 07:41 1 INCH Morphine Sulfate (MoRPHine SULFATE INJ) 4 mg NOW STAT IV 08/04/17 07:59 08/04/17 08:02 DC 08/04/17 08:30 4 MG Ondansetron HCl (Zofran Inj) 4 mg NOW STAT IV 08/04/17 07:59 08/04/17 08:02 DC 08/04/17 08:29 4 MG Potassium Chloride (Janice Ciel Elix) 40 meq NOW STAT PO 08/04/17 08:05 08/04/17 08:07 DC 08/04/17 08:28 40 MEQ Aspirin (Ecotrin Tab) 81 mg DAILY PO 08/04/17 10:00 18 09:59 08/05/17 08:09 81 MG Clopidogrel Bisulfate (plAVix TAB) 75 mg DAILY PO 08/04/17 10:00 09/03/17 09:59 08/05/17 08:09 75 MG Diltiazem HCl (TIAzac CAP) 240 mg DAILY PO 08/04/17 10:00 09/03/17 09:59 08/05/17 08:08 240 MG Famotidine (Pepcid Tab) 40 mg DAILY PO 08/04/17 10:00 09/03/17 09:59 08/05/17 08:09 40 MG Isosorbide Mononitrate (Imdur Ext Rel Tab) 120 mg BID PO 08/04/17 10:00 09/03/17 09:59 08/05/17 08:10 120 MG Magnesium Oxide (Mag-Ox Tab) 400 mg DAILY PO 08/04/17 10:00 09/03/17 09:59 08/05/17 08:08 400 MG Metoprolol Tartrate (Lopressor Tab) 12.5 mg BID PO 08/04/17 10:00 09/03/17 09:59 08/05/17 08:10 12.5 MG Multivitamins (Multivitamin Tab) 1 tab DAILY PO 08/04/17 10:00 09/03/17 09:59 08/05/17 08:09 1 TAB Potassium Chloride (Klor-Con Tab) 20 meq DAILY PO 08/04/17 10:00 09/03/17 09:59 08/05/17 08:08 20 MEQ Pantoprazole Sodium (Protonix Tab) 40 mg QAM PO 08/04/17 10:00 09/03/17 09:59 08/05/17 08:09 40 MG ECG Indication: chest pain Rate (beats per minute): 66 Rhythm: normal sinus Findings: no acute ischemic change, no ectopy ED Course 0716: Past medical records reviewed. The patient was evaluated in room A3. A complete history and physical examination was performed. 0730: Ordered Nitroglycerin 1 inch EXT. 0753: I reevaluated the patient and she is still having pain. 0759: Ordered Zofran Inj 4 mg IV, Morphine Sulfate 4 mg IV. 0805: Ordered Potassium Chloride 40 meq PO. 0906: I reevaluated the patient and she is resting more comfortably. I discussed the test results with her and I discussed the treatment plan. She verbalized complete understanding and agreement. She will be evaluated for further treatment. 0910: I discussed the patients case with JOSE JUAN Clark. He will evaluate the patient for further treatment. Medical Decision Resident Physician Supervision Note: I interviewed and examined the patient. Discussed with Dr. Arceo and agree with findings and plan as documented in the note. Documented By: Herrera Storey Differential diagnosis: Etiologies such as cardiac ischemia, aortic dissection, pulmonary embolism, pneumonia, pneumothorax, musculoskeletal, infections, pericarditis, myocarditis , esophageal rupture, gastrointestinal, as well as others were entertained. This is a 77-year-old female who presents emergency department complaining of chest pain. The patient was given nitroglycerin with relief of her chest pain. She was then given Nitropaste. The patient was discussed with the hospitalist service who agreed to admit the patient. Patient was in agreement with the treatment plan. Medication Reconcilliation Current Medication List: was personally reviewed by me Blood Pressure Screening Patient's blood pressure: Elevated blood pressure Blood pressure disposition: Referred to PCP Consults Time Called: 901 Consulting Physician: JOSE JUAN Clark Returned Call: 09 I discussed the patients case with JOSE JUAN Clark. He will evaluate the patient for further treatment. Impression Primary Impression: Precordial chest pain Scribe Attestation The scribe's documentation has been prepared under my direction and personally reviewed by me in its entirety. I confirm that the note above accurately reflects all work, treatment, procedures, and medical decision making performed by me. Departure Information Dispostion Being Evaluated By Hospitalist Prescriptions Pantoprazole (Pantoprazole Sodium) 40 Mg Tab 40 MG PO QAM for 30 Days, #30 TAB Prov: Jackie Rodriguez PA-C 08/05/17 Referrals Hilaria Myers C.R.N.P (PCP)
--- NOTE | 2017-08-04 10:38 | History and Physical ---
History & Physical Date & Time of Service: Aug 04, 2017 at 09:57 Chief Complaint: Chest Pain Primary Care Physician: Hilaria Myers C.R.N.P History of Present Illness Source: patient, clinic records, hospital records Patient is a pleasant 77 y/o female, with PMHx of CAD s/p MONTSE to RCA, severe aortic stenosis s/p bioprosthetic valve replacement, chronic diastolic CHF, angina, HLD, HTN, T2DM, CKD stage III, h/o PUD, LAINE, and obesity, who presented to the ED because of centralized, constant chest pain, that woke her from sleep at 4AM. She took 3 Nitro SL prior to arrival w/ no change in symptoms. Pain does not radiate. Denies any alleviating/aggravating factors. She cannot state ( states she does not remember) whether symptoms are similar to past cardiac presentation. She follows w/ [facility]. She had a negative stress echo in 04/2014 for ischemic changes; LVH, EF 60-65%, trace mitral regurgitation , trace tricuspid regurgitation, grade I diastolic dysfunction. Pain is worsened with palpitation- patient denies any recent injuries or activities to cause soreness, denies any recent illnesses/cough. +chronic SOB- non-worsening. +vomiting x1 episode this AM. Patient denies any fever, chills, sweats, lightheadedness, dizziness, vision changes, palpitations, edema, wheezing, cough , abdominal pain, nausea, diarrhea, urinary symptoms, melena, numbness/tingling , weakness, muscle/joint pain, anxiety/depression, active bleeding, or new skin discoloration/changes. Patient was found to be hypertensive in ED- 211/125- she was given IV Morphine 4 mg and Nitro patch in ED w/ slight improvement. She did not take any of her morning medications today. Past Medical/Surgical History Medical/Surgical History: CAD s/p MONTSE to RCA in 2010 severe aortic stenosis s/p bioprosthetic valve replacement 2007 Chronic diastolic CHF angina HLD HTN T2DM CKD stage III h/o PUD LAINE on O2 NC supplement obesity Family History FHx: diabetes FHx: heart disease FHx: hypertension Social History Smoking Status: Never Smoker Drug Use: none Marital Status: Housing status: lives alone Occupational Status: retired Immunizations History of Influenza Vaccine: Yes Influenza Vaccine Date: Jul 06, 2013 History of Tetanus Vaccine?: No Tetanus Immunization Date: Sep 04, 2010 History of Pneumococcal: No Pneumococcal Date: January 02, 2008 History of Hepatitis B Vaccine: No Multi-Drug Resistant Organisms History of MDRO: No Allergies Coded Allergies: Cephalosporins (Verified Allergy, Mild, 08/04/17) Hydrocodone (Verified Allergy, Mild, 08/04/17) Neomycin (Verified Allergy, Mild, 08/04/17) Propoxyphene (Verified Allergy, Mild, 08/04/17) Doxycycline (Verified Allergy, Unknown, UNKNOWN, 08/04/17) Sulfa Antibiotics (Verified Allergy, Unknown, ., 08/04/17) Home Medications Scheduled Albuterol Sulf (Proventil 0.083% 2.5MG/3ML), 2.5 MG INH BID Aspirin (Aspirin Ec), 81 MG PO DAILY Clopidogrel Bisulfate (Plavix), 75 MG PO DAILY Coenzyme Q10 (Ubidecarenone) (Co Q10), 100 MG PO QPM Diltiazem Hcl Ext Rel (Tiazac), 240 MG PO DAILY Famotidine (Pepcid), 40 MG PO DAILY Furosemide (Lasix), 20 MG PO TID Home O2 Therapy (Oxygen), 3 LITERS NA PRN Isosorbide Mononitrate Ext Rel (Imdur Ext Rel), 120 MG PO BID Magnesium Oxide (Mag-Ox), 400 MG PO DAILY Metoprolol Tartrate (Lopressor) (Lopressor), 12.5 MG PO BID Mometasone Furoate-Formoterol (Dulera 100/5 Mcg), 1 PUFF INH BID Multivitamin (Multivitamin), 1 TAB PO DAILY Nitroglycerin (Nitrostat), 0.4 MG UT PRN Potassium Chloride Microencaps (Potassium Chloride Er), 10 MEQ PO DAILY Potassium Ext Rel (Klor-Con), 20 MEQ PO DAILY Pravastatin Sodium (Pravastatin Sodium), 80 MG PO QPM Sitagliptin Phosphate (Januvia), 100 MG PO DAILY Scheduled PRN Albuterol Hfa (Ventolin Hfa), 2-4 PUFFS INH Q6H PRN for SOB/Wheezing Benzonatate (Tessalon Perles), 1 CAP PO UD PRN for Cough Physical Exam Vital Signs Date Time Temp Pulse Resp B/P (MAP) Pulse Ox O2 Delivery O2 Flow Rate FiO2 08/04/17 09:01 198/87 08/04/17 08:51 59 20 99 08/04/17 08:36 197/75 08/04/17 08:21 65 19 99 08/04/17 08:14 205/83 08/04/17 07:51 60 20 100 08/04/17 07:46 60 21 100 08/04/17 07:31 207/82 08/04/17 07:16 60 22 98 08/04/17 07:08 99 Nasal Cannula 3.0 08/04/17 07:02 65 08/04/17 07:01 211/125 08/04/17 06:58 36.4 64 20 212/81 99 Nasal Cannula 3.0 08/04/17 06:58 99 Nasal Cannula 3.0 08/04/17 06:56 212/81 General Appearance: no apparent distress, + pertinent finding (O2 NC) Head: normocephalic, atraumatic Eyes: normal inspection, PERRL ENT: hearing grossly normal Neck: supple Respiratory/Chest: lungs clear, no respiratory distress, no accessory muscle use, + pertinent finding (ttp mid sternum; +pain w/ movement ) Cardiovascular: regular rate, rhythm Abdomen/GI: normal bowel sounds, non tender, soft Genitourinary - Female: + cervical lesion Back: normal inspection Extremities/Musculoskelatal: no calf tenderness, no pedal edema Neurologic/Psych: alert, normal mood/affect, oriented x 3 Skin: normal color, warm/dry, no rash Diagnostics Laboratory Results Results Past 24 Hours Test 08/04/17 06:30 Range/Units White Blood Count 9.90 4.8-10.8 K/uL Red Blood Count 3.83 4.2-5.4 M/uL Hemoglobin 13.1 12.0-16.0 g/dL Hematocrit 37.8 37-47 % Mean Corpuscular Volume 98.7 80-100 fL Mean Corpuscular Hemoglobin 34.2 25-34 pg Mean Corpuscular Hemoglobin Concent 34.7 32-36 g/dl Platelet Count 207 130-400 K/uL Mean Platelet Volume 10.6 7.4-10.4 fL Neutrophils (%) (Auto) 76.0 % Lymphocytes (%) (Auto) 13.4 % Monocytes (%) (Auto) 8.2 % Eosinophils (%) (Auto) 1.8 % Basophils (%) (Auto) 0.3 % Neutrophils # (Auto) 7.52 1.4-6.5 K/uL Lymphocytes # (Auto) 1.33 1.2-3.4 K/uL Monocytes # (Auto) 0.81 0.11-0.59 K/uL Eosinophils # (Auto) 0.18 0-0.5 K/uL Basophils # (Auto) 0.03 0-0.2 K/uL RDW Standard Deviation 47.3 36.4-46.3 fL RDW Coefficient of Variation 13.1 11.5-14.5 % Immature Granulocyte % (Auto) 0.3 % Immature Granulocyte # (Auto) 0.03 0.00-0.02 K/uL Sodium Level 132 136-145 mmol/L Potassium Level 3.3 3.5-5.1 mmol/L Chloride Level 101 98-107 mmol/L Carbon Dioxide Level 26 21-32 mmol/L Anion Gap 5.0 3-11 mmol/L Blood Urea Nitrogen 25 7-18 mg/dl Creatinine 1.39 0.60-1.20 mg/dl Est Creatinine Clear Calc Drug Dose 42.8 ml/min Estimated GFR () 42.0 Estimated GFR (Non- 36.2 BUN/Creatinine Ratio 18.3 10-20 Random Glucose 169 70-99 mg/dl Calcium Level 8.7 8.5-10.1 mg/dl Total Bilirubin 0.3 0.2-1 mg/dl Aspartate Amino Transf (AST/SGOT) 15 15-37 U/L Alanine Aminotransferase (ALT/SGPT) 16 12-78 U/L Alkaline Phosphatase 89 45-117 U/L Creatine Kinase MB 1.0 0.5-3.6 ng/ml Creatine Kinase MB Ratio 0-3.0 Troponin I 0.027 0-0.045 ng/ml Total Protein 8.4 6.4-8.2 gm/dl Albumin 3.5 3.4-5.0 gm/dl Globulin 4.9 2.5-4.0 gm/dl Albumin/Globulin Ratio 0.7 0.9-2 Lipase 149 73-393 U/L Diagnostic Radiology CHEST ONE VIEW PORTABLE CLINICAL HISTORY: Chest pain. COMPARISON STUDY: Chest radiograph November 10, [address] November 11, 2014. FINDINGS: Note is made of median sternotomy wires and a prosthetic aortic valve. Cardiomediastinal silhouette is stable allowing for patient rotation. There is no pneumothorax. There may be a small left pleural effusion with left basilar opacity. There is pulmonary vascular congestion without overt pulmonary edema. IMPRESSION: 1. Mild left basilar opacity with a possible small left pleural effusion. 2. Pulmonary vascular congestion. Electronically signed by: Jefferson Landaverde M.D. 08/04/2017 8:00 AM Dictated Date/Time: 08/04/2017 7:58 AM The status of this report is Signed. Draft = Not yet reviewed or approved by Radiologist. Signed = Reviewed and approved by Radiologist. CHEST COMBO ANGIO DISSECTION HISTORY: 77 years-old female presents with acute substernal chest pain. History of lobulated partially calcified paraspinal mass lesion COMPARISON: CT chest 11/11/2016 and 10/16/2009 TECHNIQUE: CTA of the chest was obtained both with and without the use of contrast. 93 mL Optiray 320 IV contrast was administered. 3-D coronal and sagittal MIPS were obtained from the data set and cemented for review. A dose lowering technique was used consistent with the principals of BRENDA. All measurements were obtained according to NASCET criteria. FINDINGS: CTA: On the noncontrast scan there is no evidence of intramural hematoma. There is moderate multichamber cardiac enlargement. Prior median sternotomy with prosthetic aortic valve present. Dense calcifications of the mitral annulus are noted. Coronary arterial disease. There is no aortic dissection or aneurysm identified. There is moderate to severe mixed atheromatous and atherosclerotic plaquing of the thoracic aorta. Image great vessels are patent. The opacified pulmonary arterial tree is unremarkable without focal filling defect to suggest pulmonary thromboembolic disease. CT CHEST: Multinodular thyroid with nodule of the right thyroid measuring up to 2.2 x 1.5 cm. Calcifications of the right thyroid are also seen. These findings appear unchanged from comparison study. There is no pathologic adenopathy of the chest identified. There is redemonstration of a lobulated partially calcified ovoid circumscribed left paraspinal lesion at the level of the medial basal left lower lobe, 8.2 x 2.5 cm which has slightly decreased in size from comparison study. This was also noted on comparison CT chest 10/16/2009 suggesting benign etiology. There is no pneumothorax, pleural effusion, focal airspace consolidation or overt pulmonary edema. Subpleural reticular opacities of the lung bases suggest areas of atelectasis and/or minimal scarring. No suspicious pulmonary nodules identified. Central airways are patent. Cholelithiasis. No acute mildly of the imaged upper abdomen. Bones of the chest appear grossly intact. Degenerative changes involve the bilateral shoulders. The bones appear mildly demineralized. Multilevel endplate spurring of the spine. IMPRESSION: 1. No acute intrathoracic abnormality identified, specifically no aortic dissection or aneurysm. 2. Cardiomegaly with prior median sternotomy and aortic valve replacement. 3. Partially calcified soft tissue attenuating left paraspinal lesion at the level of the basal left lower lobe has slightly decreased in size from comparison study. This has been present dating back to at least 10/16/2009 suggesting benign etiology. The above report was generated using voice recognition software. It may contain grammatical, syntax or spelling errors. Electronically signed by: Tonny Bethea M.D. 08/04/2017 8:26 AM Dictated Date/Time: 08/04/2017 8:17 AM The status of this report is Signed. Draft = Not yet reviewed or approved by Radiologist. Signed = Reviewed and approved by Radiologist. EKG GLO GLASER ID:[id number] 04-AUG-2017 06:53:28 [facility] Normal sinus rhythm Nonspecific ST abnormality Abnormal ECG When compared with ECG of 10-NOV-2014 23:20, No significant change Confirmed by LINDA MANJARREZ ([id number]) on 08/04/2017 8:28:49 AM 25mm/s 10mm/mV 150Hz 8.0 SP2 12SL 241 HD MARYJO: 12 Referred by: Referred Self Confirmed By: LINDA Carvajal. rate 66 BPM MT interval 180 ms QRS duration 80 ms QT/QTc 438/459 ms P-R-T axes 32 46 64 1940 (77 yr) Female 121in 275lb Room:A03 Loc:15 [employer] Engineering Technician:Rachel Coppola ind: Impression Assessment and Plan Patient is a pleasant 77 y/o female, with PMHx of CAD s/p MONTSE to RCA, severe aortic stenosis s/p bioprosthetic valve replacement, chronic diastolic CHF, angina, HLD, HTN, T2DM, CKD stage III, h/o PUD, LAINE, and obesity, who presented to the ED because of centralized, constant chest pain since 4AM. Chest pain- ACS r/o vs GI issue vs musculoskeletal: - Admit to tele for cardiac monitoring - Trend cardiac enzymes- initial trop negative - EKG w/out acute ischemic changes; follow EKG QAM and PRN for chest pain - Nitro patch and IV Morphine PRN for chest pain - Cholelithiasis noted on CT scan- keep NPO until RUQ US - GI cocktail after RUQ US - Continue Pepcid, add Protonix daily and Carafate QID - Consult cardiology given PMHx, appreciate recommendations CAD s/p MONTSE to RCA, severe aortic stenosis s/p bioprosthetic valve replacement, chronic diastolic CHF, angina, HLD, HTN: - Continue ASA 81 mg daily, Plavix 75 mg daily, Diltiazem 240 mg daily, Imdur 120 mg BID, Lopressor 12.5 mg BID, KCL supplement, Pravastatin 80 mg HS - Hold Lasix 20 TID given YENNI and IVF treatment- follow daily weights and I&Os closely - Hydralazine IV 10 mg q6 hrs PRN sbp >180 or dbp >100 Hypokalemia: Replaced w/ 40 mEq KCL in ED; continue KCL supplement and follow PRP/replace PRN YENNI on CKD stage III- baseline Cr 1.1: - IVF @ 75 ml/hr for a total of 500 cc - Hold Lasix at this time T2DM: - Hold Januvia while inpatient - BSG ACHS and ISS h/o PUD: - Continue Pepcid - Protonix and Carafate LAINE: Continue O2 supplement HS GI prophylaxis: Pepcid, Protonix, Carafate DVT prophylaxis: Heparin SQ BID Code Status: LEVEL III, FULL NO MECH VENTILATION Dispo: From home, lives alone- PT/OT and CM consulted Level of Care Telemetry Resuscitation Status FULL NO MECH VENTILATION VTE Prophylaxis Given or contraindicated: Unfractionated heparin SQ, T.E.D. Stockings, SCD's ( ) Reviewed: Pt Seen/Exam by Me History Physician [employer] Worker Supervision Note: I interviewed and examined the patient. Discussed with THEE Huffman and agree with findings and plan as documented in the note. Any exceptions or clarifications are listed here: Patient presents with midsternal chest pain that woke her from sleep at 0400 this morning it feels like chest pressure and is nonradiating. It did not respond to nitroglycerin at home or here in the ER. The pain is worse with palpation and also when she uses her arms to pull herself to sit up in bed. She had some associated nausea with vomiting. She denies abdominal pain. She is a history of peptic ulcer disease. Vitals-severely hypertensive No acute distress, alert awake oriented 3 Regular rate and rhythm, 2/6 systolic ejection murmur heard best at the right upper sternal border, positive exquisite tenderness to palpation over the mid sternum which exactly reproduces her pain, also has pain with gripping the handrails bed and pulling herself up in that same spot Lungs clear to auscultation bilaterally, no wheezes crackles or rhonchi Abdomen positive bowel sounds soft nontender nondistended no Haynes's sign Extremities no edema, 2+ dorsalis pedis pulses Chest x-ray and ECG reviewed Labs reviewed, initial troponin is negative, mild YENNI 77-year-old female with history of CAD and aortic stenosis with valve replacement, hypertension, hyperlipidemia, diabetes mellitus type 2 Chronic kidney disease stage III Objective sleep apnea on chronic 3 L nasal cannula, chronic diastolic CHF, and PUD, here with atypical chest pain and hypertensive urgency. -Give her all of her home meds for blood pressure now and give IV hydralazine as needed -Rule out ACS by trending troponins and admit to telemetry, appreciate cardiology consultation -This is most likely musculoskeletal chest pain but could be a GI source given her history of PUD. -Check right upper quadrant ultrasound and then we'll try GI cocktail to see if that relieves her pain -Add Carafate 4 times a day -Heparin subcutaneous for DVT prophylaxis Documented By: Graciela Alegria
[2017-08-04] MEDS ORDERED: GLUCOSE 10 TABS/TUBE PO PRN (11:00)
[2017-08-04] MEDS ORDERED: DEXTROSE 50% 50 ML SYR IV PRN (11:00)
[2017-08-04] MEDS ORDERED: GLUCAGON FOR INJ 1 MG VIAL SQ PRN (11:00)
[2017-08-04] MEDS ORDERED: GLUCOSE 40% GEL 15 GM TUBE PO PRN (11:00)
[2017-08-04] MEDS ORDERED: SODIUM CHLORIDE 0.9% 1000ML 1,000 ML IV SCH (11:45)
[2017-08-04] MEDS: DULERA~ORDER AWAITING ACTION SCH ×2 (12:00→15:53)
[2017-08-04] MEDS ORDERED: IV FLUIDS COMPLETED PRN (12:00)
[2017-08-04] MEDS ORDERED: ALUMINUM/MAGNESIUM SUSP 18 ML, LIDOCAINE HCL 2% VISCOUS SOLN 6 ML, BARCODE IDENTIFIER 1 EA PO ONE ×2 (12:15)
[2017-08-04] MEDS: FAMOTIDINE 20 MG TAB PO SCH (12:34)
[2017-08-04] MEDS: METOPROLOL TARTRATE 25 MG TAB PO SCH ×2 (12:34→20:17)
[2017-08-04] MEDS: MAGNESIUM OXIDE 400 MG TAB PO SCH (12:34)
[2017-08-04] MEDS: MULTIVITAMIN TAB PO SCH (12:35)
[2017-08-04] MEDS: ISOSORBIDE MONONITRATE 60 MG TABCR PO SCH ×2 (12:35→20:17)
[2017-08-04] MEDS: PANTOprazole SOD 40 MG TAB PO SCH (12:35)
[2017-08-04] MEDS: CLOPIDOGREL BISULFATE 75 MG TAB PO SCH (12:35)
[2017-08-04] MEDS: ASPIRIN 81 MG ECTAB PO SCH (12:35)
[2017-08-04] MEDS: POTASSIUM CHLORIDE 20 MEQ TABCR PO SCH (12:36)
[2017-08-04] MEDS: NITROGLYCERIN OINT 2% 1GM PACKET EXT SCH ×3 (12:36→23:51)
[2017-08-04 12:48] LABS: PROTHROMBIN TIME (PATIENT) 10.2 SECONDS (9.0-12.0)
[2017-08-04] MEDS: DILTIAZEM HCL 120 MG EXT REL CAP PO SCH (12:58)
--- NOTE | 2017-08-04 14:59 | CARDIOLOGY CONSULTATION ---
DATE OF CONSULTATION: 08/04/2017 REFERRING PHYSICIAN: Dr. Graciela Alegria. REASON FOR CONSULTATION: Chest pain. CHIEF COMPLAINT ON ADMISSION: Epigastric pain. HISTORY OF PRESENT ILLNESS: Ms. Dia is a 77-year-old female who is well known to the cardiology service. He describes an acute episode of epigastric and left upper quadrant abdominal pain awakening her from sleep at approximately 04:00 a.m. She took 3 sublingual nitroglycerin prior to arrival. Reports one episode of vomiting. This morning, she notes diarrhea. Denies fever or chills. Denies any chest or substernal discomfort. Notes dyspnea on exertion, which is unchanged from baseline. No ischemic ECG changes noted. No recent medication changes. Denies any sick contacts. Offers no complaints at this time. REVIEW OF SYSTEMS: The pertinent positives noted above. A comprehensive 10-system review is otherwise negative. PAST MEDICAL HISTORY: 1. Severe aortic stenosis, status post aortic valve replacement with 21-mm Jimbo-Abreu pericardial valve on 06/02/2008. 2. Weakly positive heparin antibody. 3. Severe coronary artery disease diagnosed by catheterization on 05/24/2011, status post PCI to the mid RCA. 4. Repeat catheterization in September 2012, demonstrating 2-vessel nonobstructive coronary disease including a 40% mid LAD and 40% proximal RCA with a widely patent mid RCA stent. 5. Peptic ulcer disease. 6. Hypertension. 7. Diverticulitis. 8. Anemia. 9. Hypomagnesemia. 10. Cutaneous candidiasis. 11. Dysuria. 12. Arthropathy. 13. Intestinal obstruction. 14. Hypoxemia. 15. Obstructive sleep apnea. 16. Dyslipidemia. 17. Pulmonary hypertension. PAST SURGICAL HISTORY: 1. Aortic valve replacement in June 2008. 2. Colonoscopy. 3. Cardiac catheterization in 2010, status post drug-eluting stent to the mid RCA. 4. Cardiac catheterization in 2012, demonstrating nonobstructive coronary artery disease with patent RCA stent. 5. Colectomy secondary to bowel obstruction. FAMILY HISTORY: The patient is adopted. No known history of premature CAD or sudden cardiac . SOCIAL HISTORY: Lifelong nonsmoker. She does not use alcohol. ALLERGIES: 1. ASPIRIN. 2. CEFTIN. 3. DARVOCET. 4. DOXYCYCLINE. 5. NEOMYCIN 6. SULFA. 7. VICODIN. OUTPATIENT MEDICATIONS: 1. Pravastatin 80 mg daily. 2. Pepcid 40 mg daily. 3. Plavix 75 mg daily. 4. Magnesium oxide 400 mg daily. 5. Diltiazem CD 240 mg daily. 6. Imdur 120 mg twice daily. 7. Lopressor 25 mg, 1/2 tablet twice daily. 8. Proventil inhaler as needed. 9. Lasix 20 mg, 3 tablets 60 mg daily. 10. Supplemental oxygen. 11. Humibid L.A. 600 mg at bedtime. 12. Potassium chloride 20 mEq daily. 13. CoQ10 daily. 14. Ferrous sulfate daily. 15. Aspirin 81 mg daily. ECG on admission demonstrates sinus bradycardia with nonspecific ST abnormality. CTA demonstrates no evidence of intrathoracic abnormality, specifically no aortic dissection or aneurysm. Telemetry demonstrates sinus rhythm. LABORATORY DATA: Initial troponin 0.027. Sodium 132, potassium 3.3, chloride 101, CO2 is 26, and creatinine is 1.39. Glucose 147. INR 1.0. PHYSICAL EXAMINATION: VITAL SIGNS: Temperature is 36.6 degrees centigrade, pulse 65 beats per minute and regular, respiratory rate 20 breaths per minute, blood pressure 158/76 and SaO2 is 98% on 3 liters. GENERAL: NAD, obese, awake, alert and oriented x3. HEENT: Mucous membranes are moist. There is no scleral icterus. Conjunctivae are pink. NECK: Supple without JVD or HJR. No carotid bruit. HEART: Regular with a normal S1 and S2. There is a 1-2/6 systolic ejection murmur heard best at the cardiac base. LUNGS: Clear without rales, rhonchi or wheeze. ABDOMEN: Soft with diffuse tenderness. No rebound or guarding. Normal bowel sounds. EXTREMITIES: Warm and dry without clubbing, cyanosis, or edema. NEUROLOGIC: Demonstrates no focal motor deficit. FINAL IMPRESSION: 1. A 77-year-old female presents with atypical chest pain, which appears by history to be epigastric and left upper quadrant abdominal pain. Per the review of prior cardiac records, this pain has been present in the past. The pain is nonexertional and atypical for angina. 2. Chronic coronary artery disease as detailed above. 3. History of severe aortic stenosis, status post bioprosthetic aortic valve replacement. 4. Hypertension -- borderline control secondary to abdominal discomfort. 5. History of peptic ulcer disease and gastrointestinal bleed -- hemoglobin stable. PLAN AND RECOMMENDATIONS: Continue to trend cardiac enzymes x3 sets. Repeat ECG in a.m. Continue current cardiovascular medications as listed above, which reviewed and updated today. No medication changes at this time. We will repeat resting 2D transthoracic echo. Consider gastroenterology consultation for epigastric discomfort. Thank you for allowing me to participate in the care of your patient. DHARMESH
--- NOTE | 2017-08-04 15:10 | DIAGNOSTIC IMAGING REPORT ---
ULTRASOUND RIGHT UPPER QUADRANT ABDOMEN CLINICAL HISTORY: Cholelithiasis. Atypical chest pain. COMPARISON STUDY: Abdominal CT dated 12/22/2007. TECHNIQUE: Real-time, grayscale, and color flow sonography of the right upper quadrant of the abdomen was performed. Images are reviewed in the transverse and longitudinal planes. FINDINGS: Liver: The liver is normal in size and echotexture. There is no intrahepatic biliary ductal dilatation. The main portal vein is patent. Gallbladder: There are small mobile calcified gallstones. There is no gallbladder wall thickening or pericholecystic fluid. A sonographic Ahynes's sign is reportedly absent. The common bile duct measures up to 0.5 cm in diameter. Pancreas: Visualized portions of the pancreatic head and body are normal in appearance. Right kidney: Survey images of the right kidney demonstrate normal size and echotexture. There is no hydronephrosis. A 1.1 cm cyst is incidentally noted in the lower pole. Ascites: None. IMPRESSION: Cholelithiasis without sonographic evidence of acute cholecystitis. Electronically signed by: Ty Martinez M.D. 08/04/2017 3:08 PM Dictated Date/Time: 08/04/2017 3:07 PM
[2017-08-04] MEDS ORDERED: PERFLUTREN LIPID MICROSPHERE (DEFINITY) IV ONE (15:33)
--- NOTE | 2017-08-04 16:46 | ECHOCARDIOGRAM REPORT ---
*NOTICE TO RECEIVING [employer] [employer]Y This information is strictly Confidential and protected under [place] law. [place] law prohibits you from making any further disclosure of this information unless further disclosure is expressly permitted by the written consent of the person to whom it pertains or is authorized by law. A general authorization for the release of medical or other information is not sufficient for this purpose. Hospital accepts no responsibility if the information is made available to any other person, INCLUDING THE PATIENT. Interpretation Summary * Name: GLO GLASER Study Date: 08/04/2017 02:59 PM BP: 158/76 mmHg * Patient Location: C.2T\S\S242\S\1 HR: 65 * : 1940 (M/d/y) Gender: Female Height: 65 in * Age: 77 yrs Ethnicity: [place] Weight: 259 lb * Ordering Physician: Aj Vargas * Referring Physician: Self, Referred * Performed By: Nataliia Burks RDCS * * Reason For Study: Chest Pain * BSA: 2.2 m2 * The study was technically difficult. * Compared to prior study, there is no significant change. * -- Conclusions -- * Ejection Fraction = 60-65%. * There is mild concentric left ventricular hypertrophy. * The left ventricular wall motion is normal. * The left atrium is moderately dilated. * There is a bioprosthetic aortic valve. * The gradient is normal for this prosthetic aortic valve. * There is trace tricuspid regurgitation. Procedure Details * A complete two-dimensional transthoracic echocardiogram was performed (2D, M-mode, Doppler and color flow Doppler). * The study was technically difficult. * The study was technically difficult, but visualization was adequate with the administration of Definity ultrasound contrast. * There were technical limitations due to patient'sbody habitus * A contrast injection of Definity was performed to improve assessment of LV function. * Contrast was injected into an intravenous site in the left arm. * One vial of Definity ultrasound contrast was diluted in normal saline to a total volume of 10 ml. A total of '2' ml of solution was administered during imaging. * Lot # [id number] of Definity utilized for procedure. * Expiration date . * The attending nurse who injected the contrast agent was Angelique Gilbert RN. Left Ventricle * The left ventricle is normal in size. * There is no thrombus. * There is mild concentric left ventricular hypertrophy. * Ejection Fraction = 60-65%. * Left ventricular systolic function is normal. * The left ventricular wall motion is normal. Right Ventricle * The right ventricle is normal size. * The right ventricular systolic function is qualitatively normal. Atria * The left atrium is moderately dilated. * Right atrial size is normal. * There is no evidence of atrial septal defect, but resolution does not allow assessment for a patent foramen ovale. Mitral Valve * There is moderate mitral annular calcification. * The mitral valve leaflets appear thickened, but open well. * There is no mitral valve stenosis. * Significant mitral regurgitation is absent. Tricuspid Valve * The tricuspid valve is not well visualized. * There is no tricuspid stenosis. * There is trace tricuspid regurgitation. Aortic Valve * There is a bioprosthetic aortic valve. * The gradient is normal for this prosthetic aortic valve. * No significant bioprosthetic valve regurgitation. Pulmonic Valve * The pulmonary valve is not well seen, but the Doppler examination is normal without significant regurgitation or stenosis. Great Vessels * The aortic root and proximal ascending aorta are normal sized. Pericardium/Pleural * There is no pericardial effusion. Great Vessels * Normal inferior vena cava diameter and respiratory variation suggests normal central venous pressure. Left Ventricular Diastolic Function * Diastolic dysfunction, Grade II (pseudonormalization pattern). MMode 2D Measurements and Calculations IVSd 1.2 cm IVSs 1.8 cm LVIDd 3.9 cm LVIDs 2.7 cm LVPWd 1.4 cm LVPWs 1.5 cm IVS/LVPW 0.88 FS 30.6 % EDV(Teich) 64.0 ml ESV(Teich) 26.3 ml EF(Teich) 58.9 % EDV(cubed) 57.2 ml ESV(cubed) 19.1 ml EF(cubed) 66.6 % % IVS thick 48.5 % % LVPW thick 9.3 % LV mass(C)d 177.7 grams LV mass(C)dI 80.5 grams/m\S\2 LV mass(C)s 165.0 grams LV mass(C)sI 74.7 grams/m\S\2 SV(Teich) 37.7 ml SI(Teich) 17.1 ml/m\S\2 SV(cubed) 38.1 ml SI(cubed) 17.3 ml/m\S\2 Ao root diam 3.4 cm Ao root area 9.2 cm\S\2 ACS 1.9 cm LA dimension 3.8 cm LA/Ao 1.1 LVAd ap4 25.0 cm\S\2 LVLd ap4 7.1 cm EDV(MOD-sp4) 73.4 ml EDV(sp4-el) 74.5 ml LVAs ap4 13.1 cm\S\2 LVLs ap4 6.3 cm ESV(MOD-sp4) 22.9 ml ESV(sp4-el) 23.3 ml EF(MOD-sp4) 68.8 % EF(sp4-el) 68.7 % LVAd ap2 27.1 cm\S\2 LVLd ap2 8.2 cm EDV(MOD-sp2) 73.9 ml EDV(sp2-el) 76.4 ml LVAs ap2 12.7 cm\S\2 LVLs ap2 6.6 cm ESV(MOD-sp2) 20.4 ml ESV(sp2-el) 20.5 ml EF(MOD-sp2) 72.4 % EF(sp2-el) 73.1 % LVLd %diff 12.7 % EDV(MOD-bp) 78.9 ml LVLs %diff 5.5 % ESV(MOD-bp) 22.3 ml EF(MOD-bp) 71.8 % SV(MOD-sp4) 50.5 ml SI(MOD-sp4) 22.9 ml/m\S\2 SV(MOD-sp2) 53.5 ml SI(MOD-sp2) 24.2 ml/m\S\2 SV(MOD-bp) 56.6 ml SI(MOD-bp) 25.6 ml/m\S\2 SV(sp4-el) 51.2 ml SI(sp4-el) 23.2 ml/m\S\2 SV(sp2-el) 55.8 ml SI(sp2-el) 25.3 ml/m\S\2 Doppler Measurements and Calculations MV A max amos 118.8 cm/sec MV dec time 0.28 sec Ao V2 max 274.7 cm/sec Ao max PG 30.4 mmHg Ao max PG (full) 25.9 mmHg Ao V2 mean 167.4 cm/sec Ao mean PG 13.0 mmHg Ao mean PG (full) 11.0 mmHg Ao V2 VTI 55.4 cm LV V1 max PG 4.4 mmHg LV V1 mean PG 2.0 mmHg LV V1 max 105.0 cm/sec LV V1 mean 64.7 cm/sec LV V1 VTI 25.7 cm SV(Ao) 508.0 ml SI(Ao) 230.1 ml/m\S\2 PA V2 max 121.6 cm/sec PA max PG 5.9 mmHg TR max amos 317.4 cm/sec
[2017-08-04] MEDS: SUCRALFATE 1 GM/10 ML UDC PO SCH ×2 (16:50→20:18)
[2017-08-04] MEDS: INSULIN ASPART 100 UNITS/ML 3 ML PEN SC SCH ×2 (17:12→20:13)
[2017-08-04] MEDS: ALBUTEROL 0.083% NEBU SOLN 3 ML VIAL INH SCH (19:09)
[2017-08-04] MEDS: PRAVASTATIN SOD 40 MG TAB PO SCH (20:17)
[2017-08-04] MEDS: HEPARIN SOD 5000 UNIT/0.5 ML CARP SQ SCH (20:21)
[2017-08-05] VITALS (11 sets, daily range): BP systolic 103–163; BP diastolic 48–74; PULSE 32–74; TEMP 36.7–37.4; O2SAT 91–98
[2017-08-05] MEDS: ALBUTEROL 0.083% NEBU SOLN 3 ML VIAL INH SCH ×2 (06:14→19:10)
[2017-08-05] MEDS: SUCRALFATE 1 GM/10 ML UDC PO SCH ×4 (06:40→21:48)
[2017-08-05] MEDS: NITROGLYCERIN OINT 2% 1GM PACKET EXT SCH ×3 (06:42→17:58)
[2017-08-05] MEDS: DULERA~ORDER AWAITING ACTION SCH ×3 (08:00→15:52)
[2017-08-05] MEDS: POTASSIUM CHLORIDE 20 MEQ TABCR PO SCH (08:08)
[2017-08-05] MEDS: DILTIAZEM HCL 120 MG EXT REL CAP PO SCH (08:08)
[2017-08-05] MEDS: POTASSIUM CHLORIDE 10 MEQ TABCR PO SCH (08:08)
[2017-08-05] MEDS: MAGNESIUM OXIDE 400 MG TAB PO SCH (08:08)
[2017-08-05] MEDS: MULTIVITAMIN TAB PO SCH (08:09)
[2017-08-05] MEDS: PANTOprazole SOD 40 MG TAB PO SCH (08:09)
[2017-08-05] MEDS: ASPIRIN 81 MG ECTAB PO SCH (08:09)
[2017-08-05] MEDS: CLOPIDOGREL BISULFATE 75 MG TAB PO SCH (08:09)
[2017-08-05] MEDS: FAMOTIDINE 20 MG TAB PO SCH (08:09)
[2017-08-05] MEDS: ISOSORBIDE MONONITRATE 60 MG TABCR PO SCH ×2 (08:10→21:48)
[2017-08-05] MEDS: METOPROLOL TARTRATE 25 MG TAB PO SCH ×2 (08:10→21:43)
[2017-08-05] MEDS: INSULIN ASPART 100 UNITS/ML 3 ML PEN SC SCH ×4 (08:12→21:42)
[2017-08-05] MEDS: HEPARIN SOD 5000 UNIT/0.5 ML CARP SQ SCH ×2 (08:13→21:49)
[2017-08-05 09:24] LABS: BUN/CREATININE RATIO 17.2 (10-20); CALCIUM 8.6 mg/dl (8.5-10.1); CREATININE 1.22 mg/dl (0.60-1.20); POTASSIUM 4.1 mmol/L (3.5-5.1)
[2017-08-05] MEDS ORDERED: PRT40 PO (10:14)
--- NOTE | 2017-08-05 10:20 | Discharge Instructions ---
Discharge Instructions Date of Service Aug 05, 2017. Admission Reason for Admission: Chest Pain Discharge Discharge Diagnosis / Problem: Chest pain Discharge Goals Goal(s): Decrease discomfort, Improve function, Increase independence, Improve disease control Activity Recommendations Activity Limitations: resume your previous activity Lifting Limitations: no more than 25 pounds, gradually increase as tolerated Exercise/Sports Limitations: gradually increase as tolerated May Resume Sexual Activity: when tolerated Shower/Bathe: no limitations Driving or Machine Use: Do Not Drive until cleared by your PCP . Instructions / Follow-Up Instructions / Follow-Up You were admitted to [facility] with chest pain and diagnosed with musculoskeletal strain. Cardiac enzymes x 3 were essentially negative during your stay. One was slightly increased likely due to elevated blood pressure at the time of admission. During your stay here you were treated with vasodilating medications, anti- acids for indigestion and other supportive care. An echocardiogram (ultrasound of the heart) was completed and was normal compared to previous studies. * -- Conclusions -- * Ejection Fraction = 60-65%. * There is mild concentric left ventricular hypertrophy. * The left ventricular wall motion is normal. * The left atrium is moderately dilated. * There is a bioprosthetic aortic valve. * The gradient is normal for this prosthetic aortic valve. * There is trace tricuspid regurgitation. Medications: Continue taking your medications as above. Appointments: Follow up with your Primary Care Provider within 1 week. Follow up with cardiology within 1-2 weeks, an appointment has been requested for you. Current Hospital Diet Patient's current hospital diet: AHA Diet (Heart Healthy), Diabetes Type 2 Diet Discharge Diet Recommended Diet: AHA Diet (Heart Healthy), Diabetes Type 2 Diet Pending Studies Studies pending at discharge: no Laboratory Results Hemoglobin A1c Test 07/14/17 14:30 Range/Units Estimated Average Glucose 137 mg/dl Hemoglobin A1c 6.4 H 4.5-5.6 % Medical Emergencies . Who to Call and When: Medical Emergencies: If at any time you feel your situation is an emergency, please call 911 immediately. . Non-Emergent Contact Non-Emergency issues call your: Primary Care Provider, Utility Porter Call Non-Emergent contact if: you have a fever, temperature is above 100.5, your pain is not controlled, your pain is worsening, your pain is unusual for you, your pain is concerning you, you have any medication questions other concerns with your health. Call 911 or go directly to the Emergency Department if you experience any of the following: Chest pain, chest tightness, shortness of breath, abdominal pain , lightheadedness, dizziness, gastrointestinal bleeding, or have any other concerns regarding your health. . Past History Medical & Surgical History: (1) Chest pain (2) Coronary Atherosclerosis Of [place] Coronary Vessel (3) Hyperlipidemia Nec/Nos (4) Heart Valve Replac Nec (5) CHF (congestive heart failure) (6) Stented coronary artery (7) Diabetes . "Provider Documentation" section prepared by Ashleigh Rodriguez. . VTE Core Measure Inpt VTE Proph given/why not?: Unfractionated heparin SQ, T.E.D. Stockings, SCD 's (hy)
--- NOTE | 2017-08-05 14:09 | Cardiology Follow-Up ---
Subjective General Date of Service: Aug 05, 2017. Pt evaluation today including: conversation w/ patient, physical exam, chart review, lab review, review of studies, conversation w/ gis consultant, review of inpatient medication list History of Present Illness The patient is a 77 year old female seen in follow-up. Denies chest or epigastric pain currently. Blood pressure mildly elevated. Sinus bradycardia noted on telemetry with sustained heart rates as low as 40 bpm. Patient denies any lightheadedness or dizziness, however, recently complained of fatigue and dizziness during cardiology office visit. Participating in physical therapy. Offers no complaints at this time. Allergies Coded Allergies: Cephalosporins (Verified Allergy, Mild, 08/04/17) Hydrocodone (Verified Allergy, Mild, 08/04/17) Neomycin (Verified Allergy, Mild, 08/04/17) Propoxyphene (Verified Allergy, Mild, 08/04/17) Doxycycline (Verified Allergy, Unknown, UNKNOWN, 08/04/17) Sulfa Antibiotics (Verified Allergy, Unknown, ., 08/04/17) Social History Smoking Status: Never Smoker Hx Tobacco Use In Past Year?: No Hx Alcohol Use - Type And Amou: No Hx Substance Use - Type And Am: No Problem List Medical Problems: (1) Chest pain Status: Acute (2) Foot injury Status: Acute (3) Precordial chest pain Status: Acute Review of Systems Respiratory: No cough, No sputum, No wheezing, No shortness of breath, No dyspnea on exertion, No dyspnea at rest, No hemoptysis Cardiac: No chest pain, No orthopnea, No PND, No edema, No claudication, No palpitations Physical Exam Vital Signs Last Vital Signs Documentation Date Time Temp Pulse Resp B/P (MAP) Pulse Ox O2 Delivery O2 Flow Rate FiO2 08/05/17 12:00 Nasal Cannula 2.0 08/05/17 11:46 37.1 47 18 120/72 (88) 97 Physical Exam Constitutional: General Apperance: overweight Level of Distress: NAD Head: normocephalic, atraumatic Lungs: Auscultation: breath sounds normal, no wheezing, no rales/crackles, no rhonchi Cardiovascular: Heart Auscultation: RRR, normal S1, normal S2, no murmurs, no rubs, no gallops Peripheral Pulses: Radial Pulse: normal on the left, normal on the right Abdomen: Bowel Sounds: normal Inspection & Palpation: soft, non-distended, no tenderness, guarding & rebound Liver: non-tender Extremities: no cyanosis, no edema, no clubbing, no ulcers Neurologic: Gait & Station: pertinent finding (no focal motor deficit) Cranial Nerves: grossly intact Assessment and Plan Assessment and Plan FINAL IMPRESSION: 1. Atypical chest discomfort / epigastric discomfort - Resolved - Minimal nonspecific troponin elevation noted - No ischemic ECG changes or regional wall motion at amount is on resting 2 -D transthoracic echo - Possibly related to cholelithiasis 2. Marked sinus bradycardia without associated symptoms 3. History of severe aortic stenosis, status post bioprosthetic aortic valve replacement. 4. Chronic coronary disease with history of prior RCA stenting 5. Hypertension -- borderline control secondary to abdominal discomfort. 6. History of peptic ulcer disease and gastrointestinal bleed -- hemoglobin stable. PLAN AND RECOMMENDATIONS: Diltiazem CD will be reduced to 180 mg daily due to marked sinus bradycardia and history of fatigue and dizziness in the recent past. Continue to monitor telemetry at this time. We'll consider transitioned to metoprolol tartrate to carvedilol to improve blood pressure control with less effect on heart rate. Other medications will be continued as previously ordered. Will continue to follow patient during hospitalization. Laboratory Results Last 24 Hours Test 08/04/17 14:30 08/04/17 15:45 08/04/17 16:04 08/04/17 20:12 Creatine Kinase MB Ratio Creatine Kinase MB 1.3 ng/ml Troponin I 0.075 ng/ml Bedside Glucose 120 mg/dl 137 mg/dl Test 08/04/17 22:30 08/04/17 22:47 08/05/17 06:58 08/05/17 08:15 Creatine Kinase MB Ratio Creatine Kinase MB 0.7 ng/ml Troponin I 0.042 ng/ml Bedside Glucose 134 mg/dl Sodium Level 135 mmol/L Potassium Level 4.1 mmol/L Chloride Level 102 mmol/L Carbon Dioxide Level 25 mmol/L Anion Gap 8.0 mmol/L Blood Urea Nitrogen 21 mg/dl Creatinine 1.22 mg/dl Est Creatinine Clear Calc Drug Dose 48.5 ml/min Estimated GFR () 49.1 Estimated GFR (Non- 42.4 BUN/Creatinine Ratio 17.2 Random Glucose 175 mg/dl Calcium Level 8.6 mg/dl
--- NOTE | 2017-08-05 14:19 | Hospitalist Progress Note ---
Hospitalist Progress Note Date of Service Aug 05, 2017. (Jackie Rodriguez PA-C) Subjective Pt evaluation today including: conversation w/ patient, physical exam, chart review, lab review, review of studies Pain: None PO Intake: Good Voiding: no voiding problems The patient was seen and examined this morning. Pt reports feeling well. She denies any chest pain, flutter, tightness or shortness of breath since last night when she came to the hospital. She chronically wears 3 L and CPAP at night but did not wear this last evening. She reports having intermittent dizziness upon standing but states this is chronic. This lasts for only a few seconds and then resolves. She had this feeling today upon standing but states it resolved and she walked with the nurse to the bathroom without difficulty. She denies any difficulty with use of a cane. Pt notes she has an appt with cardiology for an echocardiogram and holter monitor on Aug 18. Overnight: one episode of bradycardia with lowest HR =49. No other events noted. ROS: 6 point ROS reviewed and otherwise negative. (Jackie Rodriguez PA-C) Objective Vital Signs Date Time Temp Pulse Resp B/P (MAP) Pulse Ox O2 Delivery O2 Flow Rate FiO2 08/05/17 12:00 Nasal Cannula 2.0 08/05/17 11:46 37.1 47 18 120/72 (88) 97 08/05/17 08:00 Nasal Cannula 2.0 08/05/17 07:48 36.9 61 18 141/69 (93) 96 Nasal Cannula 2.0 08/05/17 06:42 74 154/72 (99) 08/05/17 06:16 59 16 98 Nasal Cannula 2.0 08/05/17 04:00 96 Nasal Cannula 2.0 08/05/17 04:00 36.7 61 22 138/74 (95) 96 Nasal Cannula 2.0 08/04/17 23:59 97 Nasal Cannula 2.0 08/04/17 23:47 37.2 51 18 113/73 (86) 97 Nasal Cannula 2.0 08/04/17 20:00 Nasal Cannula 3.0 08/04/17 20:00 37.5 52 16 136/70 (92) 92 Nasal Cannula 3.0 08/04/17 19:10 53 16 96 Nasal Cannula 2.0 08/04/17 17:09 36.7 53 20 148/76 (100) 98 Nasal Cannula 2.0 08/04/17 16:00 Nasal Cannula 3.0 (Jackie Rodriguez PA-C) Physical Exam General Appearance: WD/WN, no apparent distress, + obese Eyes: PERRL, EOMI ENT: hearing grossly normal, pharynx normal Neck: supple, no JVD Respiratory/Chest: lungs clear, no respiratory distress, no accessory muscle use, + pertinent finding (on 3 L via NC) Cardiovascular: regular rate, rhythm, no JVD, no murmur Abdomen: normal bowel sounds, non tender, soft Extremities: non-tender, no pedal edema, no calf tenderness Neurologic/Psychiatric: alert, oriented x 3 Skin: normal color, warm/dry (Jackie Rodriguez PA-C) Laboratory Results Last 24 Hours Test 08/04/17 14:30 08/04/17 15:45 08/04/17 16:04 08/04/17 20:12 Creatine Kinase MB Ratio Creatine Kinase MB 1.3 ng/ml Troponin I 0.075 ng/ml Bedside Glucose 120 mg/dl 137 mg/dl Test 08/04/17 22:30 08/04/17 22:47 08/05/17 06:58 08/05/17 08:15 Creatine Kinase MB Ratio Creatine Kinase MB 0.7 ng/ml Troponin I 0.042 ng/ml Bedside Glucose 134 mg/dl Sodium Level 135 mmol/L Potassium Level 4.1 mmol/L Chloride Level 102 mmol/L Carbon Dioxide Level 25 mmol/L Anion Gap 8.0 mmol/L Blood Urea Nitrogen 21 mg/dl Creatinine 1.22 mg/dl Est Creatinine Clear Calc Drug Dose 48.5 ml/min Estimated GFR () 49.1 Estimated GFR (Non- 42.4 BUN/Creatinine Ratio 17.2 Random Glucose 175 mg/dl Calcium Level 8.6 mg/dl (Jackie Rodriguez PA-C) Assessment and Plan Patient is a pleasant 77 y/o female, with PMHx of CAD s/p MONTSE to RCA, severe aortic stenosis s/p bioprosthetic valve replacement, chronic diastolic CHF, angina, HLD, HTN, T2DM, CKD stage III, h/o PUD, LAINE, and obesity, who presented to the ED because of centralized, constant chest pain since 4AM. Bradycardia - Overnight had 1 episode of bradycardia where HR=49, after being seen initially this morning pt began to have bradycardia consistently in the 30s- 40s. Pt already has outpatient holter monitor set up with [facility]ology. Will keep in hospital today to watch on tele and possibly adjust dosage of metoprolol or diltiazem. Chest pain due to musculoskeletal: - Trend cardiac enzymes: 1st set neg, 2nd set slightly bumped and likely due to demand ischemia - Trop =0.07, but then trended back downward with the third set. - EKG w/out acute ischemic changes; Am EKG without any changes as well - Nitro patch and IV Morphine PRN for chest pain - GI cocktail seemed to slightly improve, but at this point CP seems to be mostly musculoskeletal as cp is reproducible on exam. - RUQ US IMPRESSION: Cholelithiasis without sonographic evidence of acute cholecystitis. - Continue Pepcid, add Protonix daily and Carafate QID - Consult cardiology - appreciate recs - ECHO completed 08/04: * -- Conclusions -- * Ejection Fraction = 60-65%. * There is mild concentric left ventricular hypertrophy. * The left ventricular wall motion is normal. * The left atrium is moderately dilated. * There is a bioprosthetic aortic valve. * The gradient is normal for this prosthetic aortic valve. * There is trace tricuspid regurgitation. * CAD s/p MONTSE to RCA, severe aortic stenosis s/p bioprosthetic valve replacement, chronic diastolic CHF, angina, HLD, HTN: - Continue ASA 81 mg daily, Plavix 75 mg daily, Diltiazem 240 mg daily, Imdur 120 mg BID, Lopressor 12.5 mg BID, KCL supplement, Pravastatin 80 mg HS - Hold Lasix 20 TID given YENNI and IVF treatment- follow daily weights and I&Os closely - Hydralazine IV 10 mg q6 hrs PRN sbp >180 or dbp >100 Hypokalemia: Replaced w/ 40 mEq KCL in ED; continue KCL supplement and follow PRP/replace PRN YENNI on CKD stage III- baseline Cr 1.1: - IVF @ 75 ml/hr for a total of 500 cc - Cr improved to 1.22 - Hold Lasix today, may be able to resume tomorrow. T2DM: - Resume Januvia - BSG ACHS and ISS h/o PUD: - Continue Pepcid - Protonix and Carafate LAINE: Continue O2 supplement HS GI prophylaxis: Pepcid, Protonix, Carafate DVT prophylaxis: Heparin SQ BID Code Status: FULL Dispo: From home, lives alone- PT/OT and CM consulted (Jackie Rodriguez PA-C) Reviewed: Pt Seen/Exam by Me (Graciela Alegria MD) History Physician Greige Goods Marker Supervision Note: I interviewed and examined the patient. Discussed with THEE Rodriguez and agree with findings and plan as documented in the note. Any exceptions or clarifications are listed here: Patient presents with midsternal chest pain that woke her from sleep that feels like chest pressure and is nonradiating. It did not respond to nitroglycerin at home or in the ER. The pain is worse with palpation and also when she uses her arms to pull herself to sit up in bed. She had some associated nausea with vomiting. She denies abdominal pain. She is a history of peptic ulcer disease. Today her pain is completely gone except when the sternal-costal junction is pressed in the mid-sternal region. SHe was set to be discharged and then her HR became persistently bradycardic in the high 30s-low 40s. Discharge was cancelled for further obs on tele nad adjustment of her meds. Vitals-BPs improved, SB on tele as above No acute distress, alert awake oriented 3 Regular rate and rhythm, 2/6 systolic ejection murmur heard best at the right upper sternal border, positive exquisite tenderness to palpation over the mid sternum which exactly reproduces her pain Lungs clear to auscultation bilaterally, no wheezes crackles or rhonchi Abdomen positive bowel sounds soft nontender nondistended no Haynes's sign Extremities no edema, 2+ dorsalis pedis pulses Troponin #2 mildly elevated and then third one negative Slab Installer improved 77-year-old female with history of CAD and aortic stenosis with valve replacement, hypertension, hyperlipidemia, DMII, CKD stage III, Objective sleep apnea on chronic 3 L nasal cannula, chronic diastolic CHF, and PUD, here with atypical chest pain and hypertensive urgency. BPs improved but heart rate low now. On 2 AV latia blocking agents. Discussed case with Cardiology-----> will lower diltiazem to 180mg daily, continue same metoprolol but consider switching to Coreg tomorrow -ok to dc Nitropaste -tylenol or spare use of NSAIDs for costochondritis likely from a new vacuum she bought and has been using a lot lately -if HR improved tomorrow, can dc with close Cardio f/u as already scheduled -Heparin subcutaneous for DVT prophylaxis Documented By: Graciela Alegria (Graciela Alegria MD)
[2017-08-05] MEDS: PRAVASTATIN SOD 40 MG TAB PO SCH (21:49)
[2017-08-06] MEDS: NITROGLYCERIN OINT 2% 1GM PACKET EXT SCH (00:16)
[2017-08-06 03:39] VITALS: BP 154/75; PULSE 73; TEMP 36.9; O2SAT 95
[2017-08-06 04:00] VITALS: O2SAT 95
[2017-08-06] MEDS: SUCRALFATE 1 GM/10 ML UDC PO SCH ×2 (06:32→12:16)
[2017-08-06 07:20] VITALS: BP 161/73; PULSE 64; TEMP 37.3; O2SAT 97
[2017-08-06 07:27] VITALS: PULSE 71; O2SAT 98
[2017-08-06] MEDS: ALBUTEROL 0.083% NEBU SOLN 3 ML VIAL INH SCH (07:27)
[2017-08-06 08:05] LABS: BUN/CREATININE RATIO 17.2 (10-20); CALCIUM 8.5 mg/dl (8.5-10.1); CREATININE 1.13 mg/dl (0.60-1.20); POTASSIUM 4.3 mmol/L (3.5-5.1)
[2017-08-06] MEDS: POTASSIUM CHLORIDE 20 MEQ TABCR PO SCH (08:35)
[2017-08-06] MEDS: ISOSORBIDE MONONITRATE 60 MG TABCR PO SCH (08:36)
[2017-08-06] MEDS: METOPROLOL TARTRATE 25 MG TAB PO SCH (08:37)
[2017-08-06] MEDS: CLOPIDOGREL BISULFATE 75 MG TAB PO SCH (08:37)
[2017-08-06] MEDS: POTASSIUM CHLORIDE 10 MEQ TABCR PO SCH (08:40)
[2017-08-06] MEDS: ASPIRIN 81 MG ECTAB PO SCH (08:40)
[2017-08-06] MEDS: PANTOprazole SOD 40 MG TAB PO SCH (08:40)
[2017-08-06] MEDS: FAMOTIDINE 20 MG TAB PO SCH (08:40)
[2017-08-06] MEDS: MULTIVITAMIN TAB PO SCH (08:41)
[2017-08-06] MEDS: MAGNESIUM OXIDE 400 MG TAB PO SCH (08:42)
[2017-08-06] MEDS: HEPARIN SOD 5000 UNIT/0.5 ML CARP SQ SCH (08:43)
[2017-08-06] MEDS: INSULIN ASPART 100 UNITS/ML 3 ML PEN SC SCH ×2 (08:44→12:19)
[2017-08-06] MEDS: DULERA~ORDER AWAITING ACTION SCH ×2 (08:45)
[2017-08-06] MEDS ORDERED: DILTIAZEM HCL 180 MG CAPCR PO SCH (09:00)
[2017-08-06] MEDS ORDERED: SITAGLIPTIN 100 MG TAB PO SCH (09:00)
[2017-08-06 11:52] VITALS: BP 161/64; PULSE 61; TEMP 36.6; O2SAT 98
[2017-08-06] MEDS ORDERED: DILT-113 PO (13:12)
[2017-08-06] MEDS ORDERED: CRG625 PO (13:12)
--- NOTE | 2017-08-06 13:26 | Discharge Summary ---
Discharge Summary Date of Service Aug 06, 2017. Discharge Summary Admission Date: Aug 04, 2017 at 11:25 Discharge Date: Aug 05, 2017 Discharge Disposition: Home with services Principal Diagnosis: Musculoskeletal chest pain Problems/Secondary Diagnoses: Sinus bradycardia to the 30s CAD s/p MONTSE to RCA severe aortic stenosis s/p bioprosthetic valve replacement chronic diastolic CHF angina HLD HTN T2DM CKD stage III h/o PUD LAINE obesity Immunizations: Have You Had Influenza Vaccine: Yes Influenza Vaccine Date: Jul 06, 2013 History of Tetanus Vaccine?: No Tetanus Immunization Date: Sep 04, 2010 History of Pneumococcal: No Pneumococcal Date: January 02, 2008 History of Hepatitis B Vaccine: No Procedures: CHEST ONE VIEW PORTABLE 08/04 IMPRESSION: 1. Mild left basilar opacity with a possible small left pleural effusion. 2. Pulmonary vascular congestion. CHEST COMBO ANGIO DISSECTION 08/04 FINDINGS: CTA: On the noncontrast scan there is no evidence of intramural hematoma. There is moderate multichamber cardiac enlargement. Prior median sternotomy with prosthetic aortic valve present. Dense calcifications of the mitral annulus are noted. Coronary arterial disease. There is no aortic dissection or aneurysm identified. There is moderate to severe mixed atheromatous and atherosclerotic plaquing of the thoracic aorta. Image great vessels are patent. The opacified pulmonary arterial tree is unremarkable without focal filling defect to suggest pulmonary thromboembolic disease. CT CHEST: Multinodular thyroid with nodule of the right thyroid measuring up to 2.2 x 1.5 cm. Calcifications of the right thyroid are also seen. These findings appear unchanged from comparison study. There is no pathologic adenopathy of the chest identified. There is redemonstration of a lobulated partially calcified ovoid circumscribed left paraspinal lesion at the level of the medial basal left lower lobe, 8.2 x 2.5 cm which has slightly decreased in size from comparison study. This was also noted on comparison CT chest 10/16/2009 suggesting benign etiology. There is no pneumothorax, pleural effusion, focal airspace consolidation or overt pulmonary edema. Subpleural reticular opacities of the lung bases suggest areas of atelectasis and/or minimal scarring. No suspicious pulmonary nodules identified. Central airways are patent. Cholelithiasis. No acute mildly of the imaged upper abdomen. Bones of the chest appear grossly intact. Degenerative changes involve the bilateral shoulders. The bones appear mildly demineralized. Multilevel endplate spurring of the spine. IMPRESSION: 1. No acute intrathoracic abnormality identified, specifically no aortic dissection or aneurysm. 2. Cardiomegaly with prior median sternotomy and aortic valve replacement. 3. Partially calcified soft tissue attenuating left paraspinal lesion at the level of the basal left lower lobe has slightly decreased in size from comparison study. This has been present dating back to at least 10/16/2009 suggesting benign etiology. ULTRASOUND RIGHT UPPER QUADRANT ABDOMEN 08/04 CLINICAL HISTORY: Cholelithiasis. Atypical chest pain. COMPARISON STUDY: Abdominal CT dated 12/22/2007. TECHNIQUE: Real-time, grayscale, and color flow sonography of the right upper quadrant of the abdomen was performed. Images are reviewed in the transverse and longitudinal planes. FINDINGS: Liver: The liver is normal in size and echotexture. There is no intrahepatic biliary ductal dilatation. The main portal vein is patent. Gallbladder: There are small mobile calcified gallstones. There is no gallbladder wall thickening or pericholecystic fluid. A sonographic Haynes's sign is reportedly absent. The common bile duct measures up to 0.5 cm in diameter. Pancreas: Visualized portions of the pancreatic head and body are normal in appearance. Right kidney: Survey images of the right kidney demonstrate normal size and echotexture. There is no hydronephrosis. A 1.1 cm cyst is incidentally noted in the lower pole. Ascites: None. IMPRESSION: Cholelithiasis without sonographic evidence of acute cholecystitis. Consultations: Cardiology Medication Reconciliation New Medications: Carvedilol (Carvedilol) 6.25 Mg Tab 6.25 MG PO BID for 30 Days, #60 TAB Pantoprazole (Pantoprazole Sodium) 40 Mg Tab 40 MG PO QAM for 30 Days, #30 TAB Changed Medications: Diltiazem Hcl Ext Rel (Tiazac) 180 Mg Capcr 180 MG PO DAILY for 30 Days, #30 CAP (Changed from: Diltiazem Hcl Ext Rel ( Tiazac) 240 Mg Capcr 240 Mg PO DAILY) Continued Medications: Albuterol Hfa (Ventolin Hfa) 200 Puffs/39566 Mcg Aers 2-4 PUFFS INH Q6H PRN for SOB/Wheezing Albuterol Sulf (Proventil 0.083% 2.5MG/3ML) 2.5 Mg/3 Ml Nebu 2.5 MG INH BID Aspirin (Aspirin Ec) 81 Mg Tab 81 MG PO DAILY Benzonatate (Tessalon Perles) Unknown Strength Cap 1 CAP PO UD PRN for Cough Clopidogrel Bisulfate (Plavix) 75 Mg Tab 75 MG PO DAILY Coenzyme Q10 (Ubidecarenone) (Co Q10) 100 Mg Cap 100 MG PO QPM Famotidine (Pepcid) 40 Mg Tab 40 MG PO DAILY Furosemide (Lasix) 20 Mg Tab 20 MG PO TID Home O2 Therapy (Oxygen) Gas 3 LITERS NA PRN Isosorbide Mononitrate Ext Rel (Imdur Ext Rel) 120 Mg Ertab 120 MG PO BID, TAB Magnesium Oxide (Mag-Ox) 400 Mg Tab 400 MG PO DAILY, 0 Refills Mometasone Furoate-Formoterol (Dulera 100/5 Mcg) Unknown Strength Aer 1 PUFF INH BID Multivitamin (Multivitamin) Tab 1 TAB PO DAILY, TAB Nitroglycerin (Nitrostat) 0.4 Mg Sub 0.4 MG UT PRN, SUB Potassium Chloride Microencaps (Potassium Chloride Er) 10 Meq Tab 10 MEQ PO DAILY, #60 Potassium Ext Rel (Klor-Con) 20 Meq Tabcr 20 MEQ PO DAILY Pravastatin Sodium (Pravastatin Sodium) 80 Mg Tab 80 MG PO QPM Sitagliptin Phosphate (Januvia) 100 Mg Tab 100 MG PO DAILY, TAB Discontinued Medications: Metoprolol Tartrate (Lopressor) (Lopressor) 25 Mg Tab 12.5 MG PO BID, TAB Discharge Exam The patient was seen and examined this morning. Pt reports feeling well overall , but is having some nausea this morning. She is due for maloxx and PPI this morning yet. She reports her symptoms improved throughout the day. She denies any chest pain, shortness of breath, and is ambulating about the room without difficulty, no dizziness or lightheadedness. Overnight Events: She did not have any events on tele overnight, and her pulse remained in the 60s and 70s with the reduction in cardizem. ROS: 10 point ROS reviewed and otherwise negative. Physical Exam: General Appearance: WD/WN, no apparent distress, + obese Eyes: PERRL, EOMI ENT: hearing grossly normal, pharynx normal Neck: supple, no JVD Respiratory/Chest: chest non-tender, lungs clear, no respiratory distress, no accessory muscle use, + pertinent finding (on 2 L via NC) Cardiovascular: regular rate, rhythm, no murmur, normal peripheral pulses Abdomen / GI: normal bowel sounds, non tender, soft Extremities: no calf tenderness, no pedal edema Neurologic/Psychiatric: alert, normal mood/affect, oriented x 3 Hospital Course History of Present Illness Source: patient, clinic records, hospital records Patient is a pleasant 77 y/o female, with PMHx of CAD s/p MONTSE to RCA, severe aortic stenosis s/p bioprosthetic valve replacement, chronic diastolic CHF, angina, HLD, HTN, T2DM, CKD stage III, h/o PUD, LAINE, and obesity, who presented to the ED because of centralized, constant chest pain, that woke her from sleep at 4AM. She took 3 Nitro SL prior to arrival w/ no change in symptoms. Pain does not radiate. Denies any alleviating/aggravating factors. She cannot state ( states she does not remember) whether symptoms are similar to past cardiac presentation. She follows w/ [facility]. She had a negative stress echo in 04/2014 for ischemic changes; LVH, EF 60-65%, trace mitral regurgitation , trace tricuspid regurgitation, grade I diastolic dysfunction. Pain is worsened with palpitation- patient denies any recent injuries or activities to cause soreness, denies any recent illnesses/cough. +chronic SOB- non-worsening. +vomiting x1 episode this AM. Patient denies any fever, chills, sweats, lightheadedness, dizziness, vision changes, palpitations, edema, wheezing, cough , abdominal pain, nausea, diarrhea, urinary symptoms, melena, numbness/tingling , weakness, muscle/joint pain, anxiety/depression, active bleeding, or new skin discoloration/changes. Patient was found to be hypertensive in ED- 211/125- she was given IV Morphine 4 mg and Nitro patch in ED w/ slight improvement. She did not take any of her morning medications today. Physical Exam General Appearance: no apparent distress, + pertinent finding (O2 NC) Head: normocephalic, atraumatic Eyes: normal inspection, PERRL ENT: hearing grossly normal Neck: supple Respiratory/Chest: lungs clear, no respiratory distress, no accessory muscle use, + pertinent finding (ttp mid sternum; +pain w/ movement ) Cardiovascular: regular rate, rhythm Abdomen/GI: normal bowel sounds, non tender, soft Genitourinary - Female: + cervical lesion Back: normal inspection Extremities/Musculoskelatal: no calf tenderness, no pedal edema Neurologic/Psych: alert, normal mood/affect, oriented x 3 Skin: normal color, warm/dry, no rash Hospital Course: Patient is a pleasant 77 y/o female, with PMHx of CAD s/p MONTSE to RCA, severe aortic stenosis s/p bioprosthetic valve replacement, chronic diastolic CHF, angina, HLD, HTN, T2DM, CKD stage III, h/o PUD, LAINE, and obesity, who presented to the ED because of centralized, constant chest pain since 4AM. This was found to be musculoskeletal in nature. Pt developed bradycardia during admission and diltiazem was reduced to 180 mg ER. Pt was also switched off metoprolol and started carvedilol per Dr. Levine. Bradycardia - Resolved - 08/04: had 1 episode of bradycardia where HR=49, after being seen initially this morning pt began to have bradycardia consistently in the 30s-40s. Pt already has outpatient holter monitor set up with [facility] cardiology. - Diltiazem reduced to 180 mg daily, start carvedilol and stop metoprolol per cards recommendations Chest pain due to musculoskeletal: - Trend cardiac enzymes: 1st set neg, 2nd set slightly bumped and likely due to demand ischemia - Trop =0.07, but then trended back downward with the third set. - EKG w/out acute ischemic changes; Am EKG without any changes as well - Nitro patch and IV Morphine PRN for chest pain - Pt using new vacuum recently in light of cleaning lady no longer coming to her home very recently and daily. - GI cocktail seemed to slightly improve, but at this point CP seems to be mostly musculoskeletal as cp is reproducible on exam. - RUQ US IMPRESSION: Cholelithiasis without sonographic evidence of acute cholecystitis. - Continue Pepcid, add Protonix daily and Carafate QID - Consult cardiology - appreciate recs - ECHO completed 08/04: * -- Conclusions -- * Ejection Fraction = 60-65%. * There is mild concentric left ventricular hypertrophy. * The left ventricular wall motion is normal. * The left atrium is moderately dilated. * There is a bioprosthetic aortic valve. * The gradient is normal for this prosthetic aortic valve. * There is trace tricuspid regurgitation. * CAD s/p MONTSE to RCA, severe aortic stenosis s/p bioprosthetic valve replacement, chronic diastolic CHF, angina, HLD, HTN: - Continue ASA 81 mg daily, Plavix 75 mg daily, Diltiazem 240 mg daily, Imdur 120 mg BID, Lopressor 12.5 mg BID, KCL supplement, Pravastatin 80 mg HS - Hold Lasix 20 TID given YENNI and IVF treatment- follow daily weights and I&Os closely - can resume upon discharge - Hydralazine IV 10 mg q6 hrs PRN sbp >180 or dbp >100 Hypokalemia: Replaced w/ 40 mEq KCL in ED; continue KCL supplement and follow PRP/replace PRN YENNI on CKD stage III- baseline Cr 1.1: - IVF @ 75 ml/hr for a total of 500 cc - Cr improved to 1.13 at time of dc - Resume lasix T2DM: - Resume Januvia - BSG ACHS and ISS h/o PUD: - Continue Pepcid - Protonix and Carafate LAINE: Continue O2 supplement HS GI prophylaxis: Pepcid, Protonix, Carafate DVT prophylaxis: Heparin SQ BID Code Status: FULL Dispo: From home, lives alone- PT/OT and CM consulted, discharge to home today Total Time Spent: Greater than 30 minutes This includes examination of the patient, discharge planning, medication reconciliation, and communication with other providers. Discharge Instructions Please refer to the electronic Patient Visit Report (Discharge Instructions) for additional information. Follow-Up Follow up with your Primary Care Provider within 1 week. Follow up with Cardiology within 1-2 weeks. Additional Copies To Aj Vargas DO; Hilaria Myers, C.R.N.P Reviewed: Pt Seen/Exam by Me History Physician [employer] Inspector Supervision Note: I interviewed and examined the patient. Discussed with THEE Rodriguez and agree with findings and plan as documented in the note. Any exceptions or clarifications are listed here: Patient presented with midsternal chest pain that woke her from sleep that feels like chest pressure and is nonradiating. It did not respond to nitroglycerin at home or in the ER. The pain is worse with palpation and also when she uses her arms to pull herself to sit up in bed. She had some associated nausea with vomiting. She denies abdominal pain. She does have a history of peptic ulcer disease. Today her pain is completely gone except when the sternal-costal junction is pressed in the mid-sternal region. Her discharge was held up by some significant sinus bradycardia in the high 30s-low 40s. Her diltiazem dose was lowered nad switched metoprolol to Coreg and HRs improved. Vitals-BPs mildly elevated No acute distress, alert awake oriented 3 Regular rate and rhythm, 2/6 systolic ejection murmur heard best at the right upper sternal border, positive exquisite tenderness to palpation over the mid sternum which exactly reproduces her pain Lungs clear to auscultation bilaterally, no wheezes crackles or rhonchi Abdomen positive bowel sounds soft nontender nondistended no Haynes's sign Extremities no edema, 2+ dorsalis pedis pulses Troponin #2 mildly elevated and then third one negative 77-year-old female with history of CAD and aortic stenosis with valve replacement, hypertension, hyperlipidemia, DMII, CKD stage III, Objective sleep apnea on chronic 3 L nasal cannula, chronic diastolic CHF, and PUD, here with atypical chest pain of a MSK origin/ Costochondritis and hypertensive urgency. BPs improved and sinus french improved with adjustment of meds as above. -tylenol or spare use of NSAIDs for costochondritis likely from a new vacuum she bought and has been using a lot lately -stable for dc with close Cardio f/u as already scheduled Documented By: Graciela Alegria
--- NOTE | 2017-08-06 13:57 | Cardiology Follow-Up ---
Subjective General Date of Service: Aug 06, 2017. Chief Complaint: epigastric pain Pt evaluation today including: conversation w/ patient, physical exam, chart review, lab review, review of studies, review of inpatient medication list History of Present Illness Patient feeling well. Anxious to go home. No recurrent chest pain or epigastric pain. No nausea. No dizziness, syncope or near syncope. Allergies Coded Allergies: Cephalosporins (Verified Allergy, Mild, 08/04/17) Hydrocodone (Verified Allergy, Mild, 08/04/17) Neomycin (Verified Allergy, Mild, 08/04/17) Propoxyphene (Verified Allergy, Mild, 08/04/17) Doxycycline (Verified Allergy, Unknown, UNKNOWN, 08/04/17) Sulfa Antibiotics (Verified Allergy, Unknown, ., 08/04/17) Social History Smoking Status: Never Smoker Hx Tobacco Use In Past Year?: No Hx Alcohol Use - Type And Amou: No Hx Substance Use - Type And Am: No Problem List Medical Problems: (1) Chest pain Status: Acute (2) Foot injury Status: Acute (3) Precordial chest pain Status: Acute Review of Systems Respiratory: No cough, No sputum, No wheezing, No shortness of breath, No dyspnea at rest, No hemoptysis Cardiac: No chest pain, No orthopnea, No PND, No edema, No palpitations Physical Exam Vital Signs Last Vital Signs Documentation Date Time Temp Pulse Resp B/P (MAP) Pulse Ox O2 Delivery O2 Flow Rate FiO2 08/06/17 11:52 36.6 61 16 161/64 (96) 98 08/06/17 11:20 Nasal Cannula 2.0 Physical Exam Constitutional: General Apperance: overweight Level of Distress: NAD Head: normocephalic, atraumatic Lungs: Auscultation: breath sounds normal, no wheezing, no rales/crackles, no rhonchi Cardiovascular: Heart Auscultation: RRR, normal S1, normal S2, no murmurs, no rubs, no gallops Peripheral Pulses: Radial Pulse: normal on the left, normal on the right Abdomen: Bowel Sounds: normal Inspection & Palpation: soft, non-distended, no tenderness, guarding & rebound Liver: non-tender Extremities: no cyanosis, no edema, no clubbing, no ulcers Neurologic: Gait & Station: pertinent finding (no focal motor deficit) Cranial Nerves: grossly intact Assessment and Plan Assessment and Plan FINAL IMPRESSION: 1. Atypical chest discomfort / epigastric discomfort - Resolved - Minimal nonspecific troponin elevation noted - No ischemic ECG changes or regional wall motion abnormalities on resting 2-D transthoracic echo - Possibly related to cholelithiasis 2. Marked sinus bradycardia without associated symptoms, improved with reduction in diltiazem. 3. History of severe aortic stenosis, status post bioprosthetic aortic valve replacement. 4. Chronic coronary disease with history of prior RCA stenting 5. Hypertension -- elevated with reduction in diltiazem. . 6. History of peptic ulcer disease and gastrointestinal bleed -- hemoglobin stable. PLAN AND RECOMMENDATIONS: Continue reduced dose diltiazme. Stop metoprolol in favor of carvedilol 6.25 mg BID to aid with HTN. Continue all other home medications. Stable cardiac signs/symptoms for discharge. Will schedule f/u in 2-4 weeks to monitor HTN and HR response with the above changes. Case discussed with Dr. Vargas Cardiology attending physician: Patient seen and examined at the bedside. Feeling much better today. Resting heart rate has increased, now averaging 50s to 60s BPM. Blood pressure remains elevated. Patient denies chest pain or shortness of breath. PE: VSS. Gen: NAD. Heart: Regular. Normal S1S2. 2/6 NAYA. Lungs: Clear B/L. no rales, rhonchi, or wheeze. Extremities: No edema. A/P: Agree with above PA-C history, physical exam, assessment and plan. Metoprolol will be discontinued in favor of carvedilol 3.125 mg twice daily. Patient will be discharged on reduced dose of diltiazem CD, 180 mg daily. Other cardiovascular medications will be continued as previously ordered. Patient will follow-up in the cardiology office in 2-4 weeks. We will sign off at this time. Thank you for allowing us to participate in the care of your patient. Francisco Vargas DO, [facility] Laboratory Results Last 24 Hours Test 08/05/17 16:12 08/05/17 20:23 08/06/17 06:30 08/06/17 07:30 Bedside Glucose 115 mg/dl 135 mg/dl 128 mg/dl Sodium Level 135 mmol/L Potassium Level 4.3 mmol/L Chloride Level 104 mmol/L Carbon Dioxide Level 26 mmol/L Anion Gap 5.0 mmol/L Blood Urea Nitrogen 19 mg/dl Creatinine 1.13 mg/dl Est Creatinine Clear Calc Drug Dose 52.2 ml/min Estimated GFR () 53.9 Estimated GFR (Non- 46.5 BUN/Creatinine Ratio 17.2 Random Glucose 129 mg/dl Calcium Level 8.5 mg/dl Test 08/06/17 11:25 Bedside Glucose 114 mg/dl
[2017-08-06 14:46] VITALS: BP 161/64; PULSE 61; TEMP 36.6; O2SAT 98
[2017-08-06] MEDS ORDERED: CARVEDILOL 6.25 MG TAB PO SCH (21:00)
== END 2017-08-06 15:00 | disposition home or self-care (01) ==
LOC: C.EDA 06:46 → EDBD 06:46 → ENRESERV 10:26 → C.2T 11:25
PROVIDERS: ADMIT Family Medicine; ATTEND Family Medicine
DX: R07.89 Other chest pain (principal); R00.1 Bradycardia, unspecified; I12.9 Hypertensive chronic kidney disease with stage 1 through stage 4 chronic kidney disease, or unspecified chronic kidney disease; E78.5 Hyperlipidemia, unspecified; I25.10 Atherosclerotic heart disease of native coronary artery without angina pectoris; J44.9 Chronic obstructive pulmonary disease, unspecified; Z79.01 Long term (current) use of anticoagulants; E11.9 Type 2 diabetes mellitus without complications; Z95.818 Presence of other cardiac implants and grafts; Z83.3 Family history of diabetes mellitus; Z82.49 Family history of ischemic heart disease and other diseases of the circulatory system; Z79.82 Long term (current) use of aspirin; N18.3 Chronic kidney disease, stage 3 (moderate); E66.9 Obesity, unspecified; E87.6 Hypokalemia

== ENCOUNTER 2017-12-02 11:28 | Inpatient (IN) | payer OTHER ==
[~2017-12-02] VITALS: Ht 165.1 cm; Wt 115.5 kg
[2017-12-02] VITALS (26 sets, daily range): BP systolic 87–148; BP diastolic 37–102; PULSE 64–103; TEMP 36.2–36.9; O2SAT 94–100; Ht 165.1 cm; Wt 115.5 kg
[~2017-12-02 11:28] MED LIST changes: +ALBINS/ INH; -ALBU0.08 INH; -BACL10TA PO; +BENZ-54 PO; +CRG625 PO; -DILT-115 PO; +FAMO40TA6 PO; -METO25TA56 PO; +MOME100A INH; +OXGN; +POTA20TA16 PO; -PRAV20TA PO; +PRAV80TA2 PO; +PRT40 PO; +VNTHFA/IN INH
[2017-12-02] MEDS: SODIUM CHLORIDE 0.9% 1000ML 1,000 ML IV STA ×2 (11:46→12:53)
[2017-12-02 12:07] LABS: ISTAT CREATININE 1.5 mg/dl (0.6-1.3); ISTAT IONIZED CALCIUM 1.08 mmol/l (1.12-1.32); ISTAT POTASSIUM 3.8 mEq/L (3.3-5.0)
[2017-12-02 12:15] LABS: INR 2.1 (0.9-1.1); PTT PATIENT 27.8 SECONDS (21.0-31.0)
[2017-12-02] MEDS ORDERED: OPTIRAY 320 IV PRN (12:15)
[2017-12-02] MEDS ORDERED: ESCI1TAB6 PO (12:16)
[2017-12-02] MEDS ORDERED: DILT-113 PO (12:16)
[2017-12-02] MEDS ORDERED: WARF5TAB7 PO (12:16)
--- NOTE | 2017-12-02 12:19 | DIAGNOSTIC IMAGING REPORT ---
SINGLE VIEW CHEST CLINICAL HISTORY: GI bleeding. FINDINGS: An AP, portable, upright chest radiograph is compared to study dated 08/04/2017 and correlated with chest CT dated 11/11/2014. The examination is degraded by portable technique and patient rotation. The patient is status post midline sternotomy. The heart is enlarged and there is atherosclerotic calcification of the thoracic aorta. The pulmonary vasculature is noncongested. Chronic interstitial thickening is similar to previous. Foci of linear atelectasis are seen in the left mid to lower lung and there is dependent atelectasis at the left lung base. No pneumothorax is seen. The skeletal structures are osteopenic. The bony thorax is grossly intact. IMPRESSION: Cardiomegaly with no acute cardiopulmonary abnormality. Electronically signed by: Ty Martinez M.D. 12/02/2017 12:18 PM Dictated Date/Time: 12/02/2017 12:16 PM
[2017-12-02 12:27] LABS: ALBUMIN 2.6 gm/dl (3.4-5.0); ALT/SGPT 12 U/L (12-78); BLOOD UREA NITROGEN 37 mg/dl (7-18); CALCIUM 7.7 mg/dl (8.5-10.1); CARBON DIOXIDE 25 mmol/L (21-32); GLUCOSE 154 mg/dl (70-99); LIPASE 108 U/L (73-393); POTASSIUM 3.8 mmol/L (3.5-5.1); SODIUM 141 mmol/L (136-145)
[2017-12-02 12:32] LABS: ALKALINE PHOSPHATASE 57 U/L (45-117); AST/SGOT 13 U/L (15-37); TOTAL PROTEIN 5.7 gm/dl (6.4-8.2)
[2017-12-02 12:40] LABS: HEMOGLOBIN 7.6 g/dL (12.0-16.0); MEAN CELL VOLUME 97.5 fL (80-100); MEAN CORPUSCULAR HEMOGLOBIN 32.2 pg (25-34); MEAN PLATELET VOLUME 10.8 fL (7.4-10.4); PLATELET COUNT 146 K/uL (130-400); RED CELL DISTRIBUTION WIDTH CV 14.2 % (11.5-14.5); WHITE BLOOD COUNT 7.16 K/uL (4.8-10.8)
[2017-12-02 12:43] LABS: BASO % 0.8 %; BASO ABS # 0.06 K/uL (0-0.2); EOS % 1.7 %; EOS ABS # 0.12 K/uL (0-0.5); IG# 0.04 K/uL (0.00-0.02); LYMPH % 21.5 %; LYMPH ABS # 1.54 K/uL (1.2-3.4); MONO % 9.5 %; MONO ABS # 0.68 K/uL (0.11-0.59); NEUT % 65.9 %; NEUT ABS # 4.72 K/uL (1.4-6.5)
--- NOTE | 2017-12-02 13:17 | DIAGNOSTIC IMAGING REPORT ---
CT SCAN OF THE ABDOMEN AND PELVIS WITH IV CONTRAST CLINICAL HISTORY: Lower GI bleeding. COMPARISON STUDY: Abdominal CT dated 12/22/2007. TECHNIQUE: Following the IV administration of 80 cc of Optiray 320, CT scan of the abdomen and pelvis is performed from the lung bases to the proximal femora. Images are reviewed in the axial, sagittal, and coronal planes. IV contrast was administered without complication. A dose lowering technique was utilized adhering to the principles of ALARA. CT DOSE: 1526.71 mGy.cm FINDINGS: Lung bases: The heart is top normal in size and without pericardial effusion. There is evidence of aortic valve surgery. Mitral annulus is densely calcified, as are the coronary arteries. A tiny hiatal hernia is noted. Small fat-containing Bochdalek hernias are seen at both lung bases. There is no airspace consolidation typical for pneumonia or pleural effusion. An indeterminant 8 x 4 cm soft tissue structure at the medial left lung base which contains coarse calcifications is unchanged dating back to 2007. Long-term stability suggests a benign etiology. Liver: The contrast-enhanced liver is normal in size, contour, and attenuation. There is no intrahepatic biliary ductal dilatation. The hepatic veins and portal veins are patent. Gallbladder: There are calcified gallstones comment with no CT evidence of acute cholecystitis. Spleen: Normal in size and attenuation. Pancreas: Atrophic and grossly unremarkable. Adrenal glands: Unremarkable. Kidneys: The contrast enhanced kidneys are atrophic and without hydronephrosis. The kidneys enhance symmetrically. Subcentimeter cortical hypodensities likely represent cysts but are too small for definitive characterization. Abdominal vasculature: There is advanced atherosclerotic calcification and ectasia of the abdominal aorta. A right femoral central venous catheter is in place. Bowel: There is moderate sigmoid diverticulosis without CT evidence of acute diverticulitis. No bowel obstruction is seen. The appendix is well-visualized and normal. Peritoneum: There is no intraperitoneal free air or abdominal ascites. There are fat-containing supraumbilical hernias. Lymphadenopathy: None. Pelvic viscera: The bladder is normal as visualized. The uterus is surgically absent. No adnexal lesion is seen. Skeletal structures: The skeletal structures are osteopenic. Mild to moderate lumbosacral spondylosis is observed. No lytic or blastic lesions are seen. Advanced sclerotic change is identified in the sacroiliac joints. Chronic posttraumatic deformity is noted in the left pubic ring. IMPRESSION: 1. There are no acute infectious or inflammatory findings in the abdomen or pelvis. 2. Cholelithiasis. 3. Moderate sigmoid diverticulosis without CT evidence of acute diverticulitis. 4. There is an approximately 8 x 4 cm soft tissue lesion containing calcifications at the medial left lung base. This is present dating back to 2007 and long-term stability suggests a benign etiology. 5. Additional findings as above. Electronically signed by: Ty Martinez M.D. 12/02/2017 1:16 PM Dictated Date/Time: 12/02/2017 1:07 PM
--- NOTE | 2017-12-02 13:27 | EMERGENCY ROOM VISIT NOTE ---
History Report prepared by Amber: Horacio Charles Under the Supervision of: Dr. Noé Esteban D.O. First contact with patient: 11:23 Chief Complaint: GI ASSESSMENT Stated Complaint: GI ASSESSMENT History of Present Illness The patient is a 77 year old female who presents to the Emergency Room with complaints of rectal bleeding beginning yesterday. Per EMS, the patient' bleeding has appeared dark red in color. They state that the patient has had constant rectal bleeding since it began. They note that the patient was started on Coumadin two weeks ago for a previous stroke. EMS states that the patient was seen by home health nursing today, who called [facility] regarding her symptoms and was referred to the ED. They note that the patient's systolic blood pressure was 75 initially. The patient also complains of low abdominal pain, and nausea. She was given IV fluids and Zofran en route. She is on supplemental oxygen at home (2L during the day, 3L at night). Source of History: patient Onset: Yesterday Position: other (rectum) Quality: other (bleeding) Timing: constant Associated Symptoms: + nausea, + abdominal pain (low) Review of Systems See HPI for pertinent positives & negatives. A total of 10 systems reviewed and were otherwise negative. Past Medical & Surgical Medical Problems: (1) Anticoagulants,Lt,Current Use (2) Aortic Valve Disorder (3) Coronary Atherosclerosis Of [place] Coronary Vessel (4) Diabetes (5) Diverticulosis Colon (W/O Ment Of Hemorrhage) (6) Heart Valve Replac Nec (7) Hx of bronchitis (8) Hyperlipidemia Nec/Nos (9) Hypertension Nos (10) Stented coronary artery Family History FHx: diabetes FHx: heart disease FHx: hypertension Social History Smoking Status: Never Smoker Alcohol Use: none Drug Use: none Marital Status: Housing Status: lives alone Occupation Status: retired Current/Historical Medications Scheduled Albuterol Sulf (Proventil 0.083% 2.5MG/3ML), 2.5 MG INH BID Aspirin (Aspirin Ec), 81 MG PO DAILY Carvedilol (Carvedilol), 6.25 MG PO BID Coenzyme Q10 (Ubidecarenone) (Co Q10), 100 MG PO QPM Diltiazem Hcl Ext Rel (Tiazac), 180 MG PO DAILY Escitalopram Oxalate (Lexapro), 5 MG PO DAILY Famotidine (Pepcid), 40 MG PO DAILY Furosemide (Lasix), 40 MG PO BID Home O2 Therapy (Oxygen), 3 LITERS NA PRN Isosorbide Mononitrate Ext Rel (Imdur Ext Rel), 120 MG PO BID Magnesium Oxide (Mag-Ox), 400 MG PO DAILY Mometasone Furoate-Formoterol (Dulera 100/5 Mcg), 1 PUFF INH BID Multivitamin (Multivitamin), 1 TAB PO DAILY Nitroglycerin (Nitrostat), 0.4 MG UT PRN Pantoprazole (Pantoprazole Sodium), 40 MG PO QAM Sitagliptin Phosphate (Januvia), 100 MG PO DAILY Warfarin Sod (Jantoven), 5 MG PO DAILY Scheduled PRN Albuterol Hfa (Ventolin Hfa), 2-4 PUFFS INH Q6H PRN for SOB/Wheezing Allergies Coded Allergies: Cephalosporins (Verified Allergy, Mild, 08/04/17) Hydrocodone (Verified Allergy, Mild, 08/04/17) Neomycin (Verified Allergy, Mild, 08/04/17) Propoxyphene (Verified Allergy, Mild, 08/04/17) Doxycycline (Verified Allergy, Unknown, UNKNOWN, 08/04/17) Sulfa Antibiotics (Verified Allergy, Unknown, ., 08/04/17) Physical Exam Vital Signs Date Time Temp Pulse Resp B/P (MAP) Pulse Ox O2 Delivery O2 Flow Rate FiO2 12/02/17 14:19 36.6 67 20 112/37 100 12/02/17 14:04 36.6 70 20 146/57 100 2.0 12/02/17 13:49 36.5 65 20 112/84 100 2.0 12/02/17 13:35 36.5 68 18 137/72 100 12/02/17 13:16 36.3 64 18 133/62 100 2.0 12/02/17 13:01 36.2 68 18 87/47 100 2.0 12/02/17 12:57 66 18 87/47 100 Nasal Cannula 2.0 12/02/17 12:32 65 18 131/51 100 Nasal Cannula 2.0 12/02/17 12:15 68 12/02/17 11:49 67 20 146/69 100 Nasal Cannula 2.0 12/02/17 11:30 100 Nasal Cannula 2.0 12/02/17 11:30 63 18 136/61 100 Nasal Cannula 2.0 Physical Exam GENERAL: Patient is awake, alert, and very anxious appearing. Appears to be in moderate distress. EYES: The conjunctivae are clear. The pupils are round and reactive. EARS, NOSE, MOUTH AND THROAT: The nose is without any evidence of any deformity. Mucous membranes are moist tongue is midline NECK: The neck is nontender and supple. RESPIRATORY: Normal respiratory effort is noted there is no evidence of wheezing rhonchi or rales CARDIOVASCULAR: Regular rate and rhythm noted there no murmurs rubs or gallops normal S1 normal S2 GASTROINTESTINAL: The abdomen is moderately distended with left sided tenderness to palpation. Guarding in the left side of the abdomen. RECTAL: Gross blood per rectum. MUSCULOSKELETAL/EXTREMITIES: There is no evidence of gross deformity full range of motion is noted in the hips and shoulders SKIN: There is no obvious evidence of any rash. There are no petechiae, pallor or cyanosis noted. NEUROLOGIC: Patient is awake alert and oriented x3 Medical Decision & Procedures ER Provider Diagnostic Interpretation: Radiology results as stated below per my review and radiologist interpretation: SINGLE VIEW CHEST FINDINGS: An AP, portable, upright chest radiograph is compared to study dated 08/04/2017 and correlated with chest CT dated 11/11/2014. The examination is degraded by portable technique and patient rotation. The patient is status post midline sternotomy. The heart is enlarged and there is atherosclerotic calcification of the thoracic aorta. The pulmonary vasculature is noncongested. Chronic interstitial thickening is similar to previous. Foci of linear atelectasis are seen in the left mid to lower lung and there is dependent atelectasis at the left lung base. No pneumothorax is seen. The skeletal structures are osteopenic. The bony thorax is grossly intact. IMPRESSION: Cardiomegaly with no acute cardiopulmonary abnormality. Electronically signed by: Ty Martinez M.D. 12/02/2017 12:[address] SCAN OF THE ABDOMEN AND PELVIS WITH IV CONTRAST FINDINGS: Lung bases: The heart is top normal in size and without pericardial effusion. There is evidence of aortic valve surgery. Mitral annulus is densely calcified, as are the coronary arteries. A tiny hiatal hernia is noted. Small fat-containing Bochdalek hernias are seen at both lung bases. There is no airspace consolidation typical for pneumonia or pleural effusion. An indeterminant 8 x 4 cm soft tissue structure at the medial left lung base which contains coarse calcifications is unchanged dating back to 2007. Long-term stability suggests a benign etiology. Liver: The contrast-enhanced liver is normal in size, contour, and attenuation. There is no intrahepatic biliary ductal dilatation. The hepatic veins and portal veins are patent. Gallbladder: There are calcified gallstones comment with no CT evidence of acute cholecystitis. Spleen: Normal in size and attenuation. Pancreas: Atrophic and grossly unremarkable. Adrenal glands: Unremarkable. Kidneys: The contrast enhanced kidneys are atrophic and without hydronephrosis. The kidneys enhance symmetrically. Subcentimeter cortical hypodensities likely represent cysts but are too small for definitive characterization. Abdominal vasculature: There is advanced atherosclerotic calcification and ectasia of the abdominal aorta. A right femoral central venous catheter is in place. Bowel: There is moderate sigmoid diverticulosis without CT evidence of acute diverticulitis. No bowel obstruction is seen. The appendix is well-visualized and normal. Peritoneum: There is no intraperitoneal free air or abdominal ascites. There are fat-containing supraumbilical hernias. Lymphadenopathy: None. Pelvic viscera: The bladder is normal as visualized. The uterus is surgically absent. No adnexal lesion is seen. Skeletal structures: The skeletal structures are osteopenic. Mild to moderate lumbosacral spondylosis is observed. No lytic or blastic lesions are seen. Advanced sclerotic change is identified in the sacroiliac joints. Chronic posttraumatic deformity is noted in the left pubic ring. IMPRESSION: 1. There are no acute infectious or inflammatory findings in the abdomen or pelvis. 2. Cholelithiasis. 3. Moderate sigmoid diverticulosis without CT evidence of acute diverticulitis. 4. There is an approximately 8 x 4 cm soft tissue lesion containing calcifications at the medial left lung base. This is present dating back to 2007 and long-term stability suggests a benign etiology. 5. Additional findings as above. Electronically signed by: Ty Martinez M.D. 12/02/2017 1:16 PM Laboratory Results 12/02/17 11:38 Red Blood Count 2.36, Mean Corpuscular Volume 97.5, Mean Corpuscular Hemoglobin 32.2, Mean Corpuscular Hemoglobin Concent 33.0, Mean Platelet Volume 10.8, Neutrophils (%) (Auto) 65.9, Lymphocytes (%) (Auto) 21.5, Monocytes (%) (Auto) 9.5, Eosinophils (%) (Auto) 1.7, Basophils (%) (Auto) 0.8, Neutrophils # (Auto) 4.72, Lymphocytes # (Auto) 1.54, Monocytes # (Auto) 0.68, Eosinophils # (Auto) 0.12, Basophils # (Auto) 0.06 12/02/17 11:38 Test 12/02/17 11:38 12/02/17 11:55 White Blood Count 7.16 K/uL (4.8-10.8) Red Blood Count 2.36 M/uL (4.2-5.4) Hemoglobin 7.6 g/dL (12.0-16.0) Hematocrit 23.0 % (37-47) Mean Corpuscular Volume 97.5 fL (80-100) Mean Corpuscular Hemoglobin 32.2 pg (25-34) Mean Corpuscular Hemoglobin Concent 33.0 g/dl (32-36) Platelet Count 146 K/uL (130-400) Mean Platelet Volume 10.8 fL (7.4-10.4) Neutrophils (%) (Auto) 65.9 % Lymphocytes (%) (Auto) 21.5 % Monocytes (%) (Auto) 9.5 % Eosinophils (%) (Auto) 1.7 % Basophils (%) (Auto) 0.8 % Neutrophils # (Auto) 4.72 K/uL (1.4-6.5) Lymphocytes # (Auto) 1.54 K/uL (1.2-3.4) Monocytes # (Auto) 0.68 K/uL (0.11-0.59) Eosinophils # (Auto) 0.12 K/uL (0-0.5) Basophils # (Auto) 0.06 K/uL (0-0.2) RDW Standard Deviation 51.0 fL (36.4-46.3) RDW Coefficient of Variation 14.2 % (11.5-14.5) Immature Granulocyte % (Auto) 0.6 % Immature Granulocyte # (Auto) 0.04 K/uL (0.00-0.02) Large Platelets 1+ Prothrombin Time 22.1 SECONDS (9.0-12.0) Prothromb Time International Ratio 2.1 (0.9-1.1) Activated Partial Thromboplast Time 27.8 SECONDS (21.0-31.0) Partial Thromboplastin Ratio 1.1 Est Creatinine Clear Calc Drug Dose 38.0 ml/min Estimated GFR () 38.3 Estimated GFR (Non- 33.0 BUN/Creatinine Ratio 24.6 (10-20) Calcium Level 7.7 mg/dl (8.5-10.1) Total Bilirubin 0.2 mg/dl (0.2-1) Direct Bilirubin < 0.1 mg/dl (0-0.2) Aspartate Amino Transf (AST/SGOT) 13 U/L (15-37) Alanine Aminotransferase (ALT/SGPT) 12 U/L (12-78) Alkaline Phosphatase 57 U/L (45-117) Troponin I < 0.015 ng/ml (0-0.045) Total Protein 5.7 gm/dl (6.4-8.2) Albumin 2.6 gm/dl (3.4-5.0) Lipase 108 U/L (73-393) Bedside Hemoglobin 7.5 g/dl (12.0-16.0) Bedside Hematocrit 22 % (37-47) Bedside Sodium 142 mEq/L (135-144) Bedside Potassium 3.8 mEq/L (3.3-5.0) Bedside Chloride 104 mEq/L (101-112) Bedside Total CO2 24 mEq/l (24-31) Anion Gap 18.0 mmol/L (16-25) Bedside Blood Urea Nitrogen 35 mg/dl (7-18) Bedside Creatinine 1.5 mg/dl (0.6-1.3) Bedside Glucose (other) 156 mg/dl (70-99) Bedside Ionized Calcium (Estefany) 1.08 mmol/l (1.12-1.32) Laboratory results per my review. Medications Administered Medications (Trade) Dose Ordered Sig/Trixie Route Start Time Stop Time Status Last Admin Dose Admin Sodium Chloride 1,000 ml @ 999 mls/hr Q1H1M STAT IV 12/02/17 11:32 12/02/17 12:32 DC 12/02/17 12:53 999 MLS/HR Procedure Femoral Central Venous Catheter Indication: GI bleeding. Catheter Type: triple lumen. Location: right femoral vein Verbal consent was obtained after the risks and benefits were explained, including but not limited to intra-abdominal injury, vessel injury, bleeding, scarring, infection, pain, and bone/joint/nerve damage. At this time, the risks of the procedure are less than the risks of NOT performing the procedure. A time out was taken and the correct patient and site identified. The patient was placed in the supine position and the skin was prepped in the standard fashion with chlorhexidine and full sterile drapes applied. The proper landmarks were identified with ultrasound, anesthetized with 1% lidocaine without epinephrine, and the needle was inserted through the skin in the standard fashion. The needle was carefully advanced into blood vessel lumen with ultrasound guidance. The guidewire was placed uneventfully. The vessel is dilated and the catheter was placed. It was sutured into position. There was good blood return from all ports. The patient tolerated the procedure well and there were no complications. ECG Per My Interpretation Indication: abdominal pain Rate (beats per minute): 70 Rhythm: normal sinus Findings: no ectopy, other (No acute ST segment abnormalities) Comparison ECG Date: 08/06/17 Change: no significant change ED Course 1128: The patient was evaluated in room B1. A complete history and physical examination were performed. 1132: Ordered NSS 1,000 ml @ 999 mls/hr IV. 1134: I placed the femoral central venous catheter. See the procedure note for details. 1302: I reassessed the patient. She is resting comfortably. 1320: Upon reevaluation, the patient is resting. I discussed results and treatment plan with her. She verbalizes agreement and understanding. I spoke with Kristian FRANCIS of [place] [facility] [place] [facility]. The patient will be evaluated for further management and care. Medical Decision Differential diagnosis: Etiologies such as diverticulosis, AVM, coagulopathy, colitis, inflammatory bowel disease, malignancy, Jennifer-Arimjo tear, esophagitis, peptic ulcer disease , variceal bleed, gastritis, epistaxis, fissure, hemorrhoids, as well as others were entertained. Nursing notes reviewed. Additional history is obtained from the prehospital personnel. The patient is a 77-year-old female who presented to the emergency department for lower GI bleeding. The patient was recently started on Coumadin. She had very significant lower GI hemorrhaging as well as hypotension. The patient was treated with IV fluids initially. She was then treated with IV fresh frozen plasma and IV packed red blood cells for her bleeding. The patient was reevaluated multiple times. I discussed patient's laboratory and radiographic studies with her. I discussed her case with the on-call [facility] hospitalist group. They have agreed to evaluate the patient in the emergency department for further management and disposition. The patient was reevaluated multiple times. A central line was placed because of hypotension and acute bleeding. Medication Reconcilliation Current Medication List: was personally reviewed by me Blood Pressure Screening Patient's blood pressure: Elevated blood pressure Blood pressure disposition: Elevated BP felt to be situational Initially hypotensive until given IV fluids. Consults Time Called: [phone] Consulting Physician: Kristian BARONE Hospitalist Returned Call: 1321 I discussed the patient's case with Kristian FRANCIS. The patient will be evaluated for further management. Impression Primary Impression: Lower GI bleeding Additional Impressions: Anemia Hypotension Anticoagulated Critical Care I have personally spent greater than 60 minutes of critical care time in the direct management of this patient. This includes bedside care, interpretation of diagnostic studies, and testing, discussion with consultants, patient, and family members, and other required patient management activities. This 60 minutes is in excess of all separately billable procedures. Scribe Attestation The scribe's documentation has been prepared under my direction and personally reviewed by me in its entirety. I confirm that the note above accurately reflects all work, treatment, procedures, and medical decision making performed by me. Departure Information Dispostion Being Evaluated By Hospitalist Referrals Hilaria Myers C.R.N.P (PCP) Patient Instructions My [facility] Problem Qualifiers Additional Impressions: Anemia Anemia type: unspecified type Qualified Codes: D64.9 - Anemia, unspecified Hypotension Hypotension type: unspecified hypotension type Qualified Codes: I95.9 - Hypotension, unspecified
[2017-12-02] MEDS ORDERED: DEXTROSE 50% 50 ML SYR IV PRN (14:15)
[2017-12-02] MEDS ORDERED: ACETAMINOPHEN 325 MG TAB PO PRN (14:15)
[2017-12-02] MEDS ORDERED: ONDANSETRON INJ 2 MG/ML 2 ML VIAL IV PRN (14:15)
[2017-12-02] MEDS ORDERED: ALUMINUM/MAGNESIUM/SIMETH (MAALOX MAX) 30 ML UDC PO PRN (14:15)
[2017-12-02] MEDS ORDERED: ICU PROTOCOL FOR HYPERGLYCEMIA PRN (14:15)
[2017-12-02] MEDS ORDERED: LEVALBUTEROL 1.25MG/3ML NEB INH PRN (14:15)
[2017-12-02] MEDS ORDERED: GLUCAGON FOR INJ 1 MG VIAL SQ PRN (14:15)
[2017-12-02] MEDS ORDERED: GLUCOSE 10 TABS/TUBE PO PRN (14:15)
[2017-12-02] MEDS ORDERED: GLUCOSE 40% GEL 15 GM TUBE PO PRN (14:15)
[2017-12-02] MEDS ORDERED: LORAZEPAM 0.5 MG TAB PO PRN (14:15)
--- NOTE | 2017-12-02 15:18 | History and Physical ---
History & Physical Date & Time of Service: Dec 02, 2017 at 14:29 Chief Complaint: Gi Assessment Primary Care Physician: Hilaria Myers C.R.N.P History of Present Illness Source: patient 77 year old female with history of CAD with single stent to RCA more than 10 years ago, bovine aortic valve replacement, chronic diastolic heart failure, CKD stage 3 and DM II presented to the ED via EMS with complaints of bright red rectal bleeding with clots. She was started on coumadin 2 weeks ago although she states she is not sure why. Yesterday she developed rectal bleeding which has persisted. This morning she was weaker than usual and called 911. On arrival she was hypotensive and nauseous. She was given a liter of fluids en route and zofran. Upon arrival at ED she was still hypotensive at 87/47. A right femoral line was placed and she received another liter bolus. She is now normotensive. Her last HBG in August 2017 was 13.1. Today her HgB is 7.6. She was typed and crossed for FFP and PRBC. Thus far she has received one unit of FFP. She has no chest pain or shortness of breath currently. No nausea, vomiting or diarrhea or abdominal pain and no fever or chills. Hospital medicine was asked to see the patient and she will be placed in the ICU over night with consult to the intensivists. Past Medical/Surgical History Medical Problems: 1. CAD s/p MONTSE to RCA in 2010 2. severe aortic stenosis s/p bi-prosthetic valve replacement 2007 3. Chronic diastolic CHF - last Echo 08/17 showed EF of 60% 4. angina 5. Hypertension 6. Diabetes Mellitus type 2 7. CKD stage III 8.LAINE/OHS on O2 NC supplement 9. Obesity Past Surgical History 1. Bi Prosthetic Aortic Valve replacement 2007 2. RCA stent in 2010 3. Hysterectomy Family History FHx: diabetes FHx: heart disease FHx: hypertension Social History Smoking Status: Never Smoker Smokeless Tobacco Use: No Alcohol Use: none Drug Use: none Marital Status: Housing status: lives alone Occupational Status: retired Immunizations History of Influenza Vaccine: Yes Influenza Vaccine Date: Jul 06, 2013 History of Tetanus Vaccine?: No Tetanus Immunization Date: Sep 04, 2010 History of Pneumococcal: No Pneumococcal Date: January 02, 2008 History of Hepatitis B Vaccine: No Allergies Coded Allergies: Cephalosporins (Verified Allergy, Mild, 08/04/17) Hydrocodone (Verified Allergy, Mild, 08/04/17) Neomycin (Verified Allergy, Mild, 08/04/17) Propoxyphene (Verified Allergy, Mild, 08/04/17) Doxycycline (Verified Allergy, Unknown, UNKNOWN, 08/04/17) Sulfa Antibiotics (Verified Allergy, Unknown, ., 08/04/17) Home Medications Scheduled Albuterol Sulf (Proventil 0.083% 2.5MG/3ML), 2.5 MG INH BID Aspirin (Aspirin Ec), 81 MG PO DAILY Carvedilol (Carvedilol), 6.25 MG PO BID Coenzyme Q10 (Ubidecarenone) (Co Q10), 100 MG PO QPM Diltiazem Hcl Ext Rel (Tiazac), 180 MG PO DAILY Escitalopram Oxalate (Lexapro), 5 MG PO DAILY Famotidine (Pepcid), 40 MG PO DAILY Furosemide (Lasix), 40 MG PO BID Home O2 Therapy (Oxygen), 3 LITERS NA PRN Isosorbide Mononitrate Ext Rel (Imdur Ext Rel), 120 MG PO BID Magnesium Oxide (Mag-Ox), 400 MG PO DAILY Mometasone Furoate-Formoterol (Dulera 100/5 Mcg), 1 PUFF INH BID Multivitamin (Multivitamin), 1 TAB PO DAILY Nitroglycerin (Nitrostat), 0.4 MG UT PRN Pantoprazole (Pantoprazole Sodium), 40 MG PO QAM Sitagliptin Phosphate (Januvia), 100 MG PO DAILY Warfarin Sod (Jantoven), 5 MG PO DAILY Scheduled PRN Albuterol Hfa (Ventolin Hfa), 2-4 PUFFS INH Q6H PRN for SOB/Wheezing Review of Systems Constitutional: No fever, No chills, No sweats, No weight loss, No weakness, No fatigue, No problem reported Eyes: No worsening of vision, No eye pain, No redness, No discharge, No diplopia, No problem reported ENT: No hearing loss, No unusual epistaxis, No nasal symptoms, No sore throat, No tinnitus, No dental problems, No trouble swallowing, No problem reported Respiratory: + shortness of breath Cardiovascular: + chest pain Abdomen: + nausea, + GI bleeding Musculoskeletal: No joint pain, No muscle pain, No swelling, No calf pain, No problem reported Genitourinary - Female: No dysuria, No urinary frequency, No urinary urgency, No urinary incontinence, No urinary retention, No hematuria, No dysmenorrhea, No menorrhagia, No metrorrhagia, No rash, No vaginal bleeding, No vaginal discharge, No vaginal itching, No vulvodynia, No , No problem reported Neurologic: No memory loss, No paralysis, No weakness, No numbness/tingling, No vertigo, No balance problems, No problem reported Psychiatric: No depression symptoms, No anhedonism, No anxiety, No insomnia, No substance abuse, No problem reported Endocrine: No fatigue, No excessive thirst, No excessive urination, No problem reported Hematologic / Lymphatic: No abnormal bleeding/bruising, No clotting problems, No swollen lymph nodes, No night sweats, No problem reported Integumentary: No rash, No itch, No new/changing skin lesions, No color change , No bleeding, No problem reported Allergic / Immunologic: No environmental allergies, No seasonal allergies, No pet sensitivities, No food allergies, No hives, No frequent infections, No poor healing, No prolonged convalescence, No problem reported Physical Exam Vital Signs Date Time Temp Pulse Resp B/P (MAP) Pulse Ox O2 Delivery O2 Flow Rate FiO2 12/02/17 14:19 36.6 67 20 112/37 100 12/02/17 14:04 36.6 70 20 146/57 100 2.0 12/02/17 13:49 36.5 65 20 112/84 100 2.0 12/02/17 13:35 36.5 68 18 137/72 100 12/02/17 13:16 36.3 64 18 133/62 100 2.0 12/02/17 13:01 36.2 68 18 87/47 100 2.0 12/02/17 12:57 66 18 87/47 100 Nasal Cannula 2.0 12/02/17 12:32 65 18 131/51 100 Nasal Cannula 2.0 12/02/17 12:15 68 12/02/17 11:49 67 20 146/69 100 Nasal Cannula 2.0 12/02/17 11:30 100 Nasal Cannula 2.0 12/02/17 11:30 63 18 136/61 100 Nasal Cannula 2.0 General Appearance: WD/WN, no apparent distress Head: normocephalic, atraumatic Eyes: normal inspection, PERRL, sclerae normal ENT: hearing grossly normal, pharynx normal Neck: supple, no JVD Respiratory/Chest: chest non-tender, lungs clear, normal breath sounds, no respiratory distress Cardiovascular: regular rate, rhythm, no edema, no JVD, no murmur Abdomen/GI: normal bowel sounds, non tender, soft, + pertinent finding (exam limited due to body habitus) Back: normal inspection, no CVA tenderness Extremities/Musculoskelatal: normal inspection, no calf tenderness, normal capillary refill, no pedal edema Neurologic/Psych: alert, normal mood/affect, oriented x 3 Skin: warm/dry, no rash, + pertinent finding (pale) Diagnostics Laboratory Results Results Past 24 Hours Test 12/02/17 11:38 12/02/17 11:55 Range/Units White Blood Count 7.16 4.8-10.8 K/uL Red Blood Count 2.36 4.2-5.4 M/uL Hemoglobin 7.6 12.0-16.0 g/dL Hematocrit 23.0 37-47 % Mean Corpuscular Volume 97.5 80-100 fL Mean Corpuscular Hemoglobin 32.2 25-34 pg Mean Corpuscular Hemoglobin Concent 33.0 32-36 g/dl Platelet Count 146 130-400 K/uL Mean Platelet Volume 10.8 7.4-10.4 fL Neutrophils (%) (Auto) 65.9 % Lymphocytes (%) (Auto) 21.5 % Monocytes (%) (Auto) 9.5 % Eosinophils (%) (Auto) 1.7 % Basophils (%) (Auto) 0.8 % Neutrophils # (Auto) 4.72 1.4-6.5 K/uL Lymphocytes # (Auto) 1.54 1.2-3.4 K/uL Monocytes # (Auto) 0.68 0.11-0.59 K/uL Eosinophils # (Auto) 0.12 0-0.5 K/uL Basophils # (Auto) 0.06 0-0.2 K/uL RDW Standard Deviation 51.0 36.4-46.3 fL RDW Coefficient of Variation 14.2 11.5-14.5 % Immature Granulocyte % (Auto) 0.6 % Immature Granulocyte # (Auto) 0.04 0.00-0.02 K/uL Large Platelets 1+ Prothrombin Time 22.1 9.0-12.0 SECONDS Prothromb Time International Ratio 2.1 0.9-1.1 Activated Partial Thromboplast Time 27.8 21.0-31.0 SECONDS Partial Thromboplastin Ratio 1.1 Sodium Level 141 136-145 mmol/L Potassium Level 3.8 3.5-5.1 mmol/L Chloride Level 108 98-107 mmol/L Carbon Dioxide Level 25 21-32 mmol/L Anion Gap 8.0 18.0 16-25 mmol/L Blood Urea Nitrogen 37 7-18 mg/dl Creatinine 1.50 0.60-1.20 mg/dl Est Creatinine Clear Calc Drug Dose 38.0 ml/min Estimated GFR () 38.3 Estimated GFR (Non- 33.0 BUN/Creatinine Ratio 24.6 10-20 Random Glucose 154 70-99 mg/dl Calcium Level 7.7 8.5-10.1 mg/dl Total Bilirubin 0.2 0.2-1 mg/dl Direct Bilirubin < 0.1 0-0.2 mg/dl Aspartate Amino Transf (AST/SGOT) 13 15-37 U/L Alanine Aminotransferase (ALT/SGPT) 12 12-78 U/L Alkaline Phosphatase 57 45-117 U/L Troponin I < 0.015 0-0.045 ng/ml Total Protein 5.7 6.4-8.2 gm/dl Albumin 2.6 3.4-5.0 gm/dl Lipase 108 73-393 U/L Bedside Hemoglobin 7.5 12.0-16.0 g/dl Bedside Hematocrit 22 37-47 % Bedside Sodium 142 135-144 mEq/L Bedside Potassium 3.8 3.3-5.0 mEq/L Bedside Chloride 104 101-112 mEq/L Bedside Total CO2 24 24-31 mEq/l Bedside Blood Urea Nitrogen 35 7-18 mg/dl Bedside Creatinine 1.5 0.6-1.3 mg/dl Bedside Glucose (other) 156 70-99 mg/dl Bedside Ionized Calcium (Estefany) 1.08 1.12-1.32 mmol/l Diagnostic Radiology SINGLE VIEW CHEST CLINICAL HISTORY: GI bleeding. FINDINGS: An AP, portable, upright chest radiograph is compared to study dated 08/04/2017 and correlated with chest CT dated 11/11/2014. The examination is degraded by portable technique and patient rotation. The patient is status post midline sternotomy. The heart is enlarged and there is atherosclerotic calcification of the thoracic aorta. The pulmonary vasculature is noncongested. Chronic interstitial thickening is similar to previous. Foci of linear atelectasis are seen in the left mid to lower lung and there is dependent atelectasis at the left lung base. No pneumothorax is seen. The skeletal structures are osteopenic. The bony thorax is grossly intact. IMPRESSION: Cardiomegaly with no acute cardiopulmonary abnormality. CT SCAN OF THE ABDOMEN AND PELVIS WITH IV CONTRAST CLINICAL HISTORY: Lower GI bleeding. COMPARISON STUDY: Abdominal CT dated 12/22/2007. TECHNIQUE: Following the IV administration of 80 cc of Optiray 320, CT scan of the abdomen and pelvis is performed from the lung bases to the proximal femora. Images are reviewed in the axial, sagittal, and coronal planes. IV contrast was administered without complication. A dose lowering technique was utilized adhering to the principles of ALARA. CT DOSE: 1526.71 mGy.cm FINDINGS: Lung bases: The heart is top normal in size and without pericardial effusion. There is evidence of aortic valve surgery. Mitral annulus is densely calcified, as are the coronary arteries. A tiny hiatal hernia is noted. Small fat-containing Bochdalek hernias are seen at both lung bases. There is no airspace consolidation typical for pneumonia or pleural effusion. An indeterminant 8 x 4 cm soft tissue structure at the medial left lung base which contains coarse calcifications is unchanged dating back to 2007. Long-term stability suggests a benign etiology. Liver: The contrast-enhanced liver is normal in size, contour, and attenuation. There is no intrahepatic biliary ductal dilatation. The hepatic veins and portal veins are patent. Gallbladder: There are calcified gallstones comment with no CT evidence of acute cholecystitis. Spleen: Normal in size and attenuation. Pancreas: Atrophic and grossly unremarkable. Adrenal glands: Unremarkable. Kidneys: The contrast enhanced kidneys are atrophic and without hydronephrosis. The kidneys enhance symmetrically. Subcentimeter cortical hypodensities likely represent cysts but are too small for definitive characterization. Abdominal vasculature: There is advanced atherosclerotic calcification and ectasia of the abdominal aorta. A right femoral central venous catheter is in place. Bowel: There is moderate sigmoid diverticulosis without CT evidence of acute diverticulitis. No bowel obstruction is seen. The appendix is well-visualized and normal. Peritoneum: There is no intraperitoneal free air or abdominal ascites. There are fat-containing supraumbilical hernias. Lymphadenopathy: None. Pelvic viscera: The bladder is normal as visualized. The uterus is surgically absent. No adnexal lesion is seen. Skeletal structures: The skeletal structures are osteopenic. Mild to moderate lumbosacral spondylosis is observed. No lytic or blastic lesions are seen. Advanced sclerotic change is identified in the sacroiliac joints. Chronic posttraumatic deformity is noted in the left pubic ring. IMPRESSION: 1. There are no acute infectious or inflammatory findings in the abdomen or pelvis. 2. Cholelithiasis. 3. Moderate sigmoid diverticulosis without CT evidence of acute diverticulitis. 4. There is an approximately 8 x 4 cm soft tissue lesion containing calcifications at the medial left lung base. This is present dating back to 2007 and long-term stability suggests a benign etiology. 5. Additional findings as above. CXR normal Normal EKG Impression Assessment and Plan 1. acute lower GI bleed with acute blood lose anemia on anticoagulant - admit to ICU - consult manager payment - INR 2.1. Had FFP x 1 unit. 3 more ready. Hold coumadin/ASA. - consult GI - NPO for now - transfuse two units PRBC to start - 2 more units on hold. 2. Hypotension - currently normotensive. Likely secondary to the acute blood lose. - Pressure responded well to IVF. Continue to monitor. 3. Diastolic HF - compensated. - hold lasix for now, but closely monitor cardiopulmonary status given the fluid she received and the blood products. Last EF from 08/17 was 65% -monitor I/O 4. DM II - hold oral agents - low dose SSI- consult pharmacy 5. CAD - s/p stent 2010 - hold ASA for now due to bleed 6. CKD Stage 3 - monitor creatinine 7. full code 8. DVT prophylaxis with SCD/TEDS only - no anticoag due to active bleeding 9. ELS two midnight. Resuscitation Status VTE Prophylaxis Will order VTE Prophylaxis: Yes Reason for no VTE drug order: Contraindicated Reviewed: Pt Seen/Exam by Me History Pt is feeling a bit better initiation of PRBC. SOB and chest pain are resolved. No abd pain with this. Agree with HPI/ROS as noted by [employer] General Appearance: no apparent distress, obese Eye Exam: bilateral eye normal inspection, bilateral eye other (nml sclera) Respiratory: normal breath sounds, no respiratory distress Cardiovascular: normal peripheral pulses, regular rate, rhythm Gastrointestinal: non tender, soft Extremities: non-tender, no pedal edema Neurologic/Psychiatric: alert, normal mood/affect, oriented x 3 Skin Characteristics: normal color, warm/dry Assessment/Plan Agree with plan as outlined above Pt was started on coumadin 2 weeks ago by Toya Rothman with [facility]. I do not have access to these records, but pt states it was "because she thought I might have had a light stroke". Obviously holding coumadin now for GIB, but will likely need to d/w cardiology after pt recovers from this issue to determine if ongoing anticoagulation is needed INR at 2.1
[2017-12-02] MEDS ORDERED: PHARMACY GLYCEMIC MGMT CONSULT PRN (15:37)
[2017-12-02] MEDS ORDERED: INSULIN ASPART 100 UNITS/ML 3 ML PEN SC SCH ×2 (16:00→18:00)
--- NOTE | 2017-12-02 16:10 | Gastrointestinal Consultation ---
Gastrointestinal Consultation Date of Consultation: Dec 02, 2017 Attending Physician: Kristian Ward Consulting Physician: Dr. Trejo Reason for Consultation: Rectal bleeding History of Present Illness Patient is a 77 year old female patient of TITO Robertson at [facility] who has a hx of CAD/CHF, bovine aortic valve replacement, recently started on coumadin for A-fib, was brought to the ED for bright red blood per rectum. She reports that she experienced some bright red blood with a BM yesterday at 2PM, then again around 4 Am today, she awakened and experienced a large amt. She tells us the bleeding has continued, all day. Her nurse tells us that her most recent BM occurred about 20 minutes ago and consisted of mostly dark red blood and clots. On arrival, she was hypotensive at 87/27 and Hb was 7.6, down from 13 in August. INR is 2.1.BUN 37, Cr. 1.5. Current BP after IV fluids is 96/67. She is receiving an initial unit of RBCs. She is awake, alert, oriented. She reports a small amt of lower abdomen cramping, otherwise no abdominal pain. Past Medical/Surgical History Medical Problems: (1) Anemia Status: Acute (2) Anticoagulated Status: Acute (3) Foot injury Status: Acute (4) Hypotension Status: Acute (5) Lower GI bleeding Status: Acute (6) Precordial chest pain Status: Acute Past Medical History: 1. CAD s/p MONTSE to RCA in 2010 2. severe aortic stenosis s/p bi-prosthetic valve replacement 2007 3. Chronic diastolic CHF - last Echo 08/17 showed EF of 60% 4. angina 5. Hypertension 6. Diabetes Mellitus type 2 7. CKD stage III 8.LAINE/OHS on O2 NC supplement 9. Obesity Past Surgical History: 1. Bi Prosthetic Aortic Valve replacement 2007 2. RCA stent in 2010 3. Hysterectomy Family History FHx: diabetes FHx: heart disease FHx: hypertension Social History Smoking Status: Never Smoker Alcohol Use: none Drug Use: none Marital Status: Housing Status: lives alone Occupation Status: retired Allergies Coded Allergies: Cephalosporins (Verified Allergy, Mild, 08/04/17) Hydrocodone (Verified Allergy, Mild, 08/04/17) Neomycin (Verified Allergy, Mild, 08/04/17) Propoxyphene (Verified Allergy, Mild, 08/04/17) Doxycycline (Verified Allergy, Unknown, UNKNOWN, 08/04/17) Sulfa Antibiotics (Verified Allergy, Unknown, ., 08/04/17) Current Medications Home Meds and Scripts Medications Dose Route/Sig Max Daily Dose Days Date Category Dose Instructions Lexapro (Escitalopram Oxalate) 5 Mg Tab 5 Mg PO DAILY 12/02/17 Reported Tiazac (Diltiazem HCl) 180 Mg Capcr 180 Mg PO DAILY 12/02/17 Reported Jantoven (Warfarin Sodium) 5 Mg Tab 5 Mg PO DAILY 12/02/17 Reported OR OTHERWISE DIRECTED Carvedilol 6.25 Mg Tab 6.25 Mg PO BID 30 08/06/17 Rx Pantoprazole Sodium (Pantoprazole) 40 Mg Tab 40 Mg PO QAM 30 08/05/17 Rx Ventolin Hfa (Albuterol) 200 Puffs/45192 Mcg Aers 2-4 Puffs INH Q6H PRN 08/04/17 Reported Dulera 100/5 Mcg (Mometasone Furoate-Formoterol) Unknown Strength Aer 1 Puff INH BID 08/04/17 Reported Oxygen Gas 3 Liters NA PRN 08/04/17 Reported Proventil 0.083% 2.5MG/3ML (Albuterol Sulf) 2.5 Mg/3 Ml Nebu 2.5 Mg INH BID 08/04/17 Reported Pepcid (Famotidine) 40 Mg Tab 40 Mg PO DAILY 08/04/17 Reported Lasix (Furosemide) 20 Mg Tab 40 Mg PO BID 03/06/16 Reported Januvia (Sitagliptin Phosphate) 100 Mg Tab 100 Mg PO DAILY 03/06/16 Reported Aspirin Ec (Aspirin) 81 Mg Tab 81 Mg PO DAILY 03/06/16 Reported Imdur Ext Rel (Isosorbide Mononitrate) 120 Mg Ertab 120 Mg PO BID 03/31/14 Reported Multivitamin (Multivitamins) Tab 1 Tab PO DAILY 08/04/13 Reported Nitrostat (Nitroglycerin) 0.4 Mg Sub 0.4 Mg UT PRN 05/22/12 Reported Co Q10 (Coenzyme Q10 (Ubidecarenone)) 100 Mg Cap 100 Mg PO QPM 11/28/11 Reported Mag-Ox (Magnesium Oxide) 400 Mg Tab 400 Mg PO DAILY 05/18/09 Reported Review of Systems Constitutional: No fever, No chills, No sweats, No weight loss, No weakness Eyes: No eye pain, No redness ENT: No sore throat, No trouble swallowing, No pain on swallowing Respiratory: No cough, No wheezing, No shortness of breath, No dyspnea on exertion Cardiac: No chest pain, No edema, No palpitations Abdomen: + see HPI Neuro: No memory loss, No weakness, No numbness/tingling, No vertigo, No balance problems Psych: No depression symptoms, No anxiety, No insomnia Heme: No abnormal bleeding/bruising, No night sweats Endo: No excessive thirst, No excessive urination Skin: No rash, No itch, No new/changing skin lesions, No jaundice Physical Exam Date Time Temp Pulse Resp B/P (MAP) Pulse Ox O2 Delivery O2 Flow Rate FiO2 12/02/17 14:54 36.6 64 20 103/60 100 2.0 12/02/17 14:39 36.6 71 20 113/52 100 2.0 12/02/17 14:19 36.6 67 20 112/37 100 12/02/17 14:04 36.6 70 20 146/57 100 2.0 12/02/17 13:49 36.5 65 20 112/84 100 2.0 12/02/17 13:35 36.5 68 18 137/72 100 12/02/17 13:16 36.3 64 18 133/62 100 2.0 12/02/17 13:01 36.2 68 18 87/47 100 2.0 12/02/17 12:57 66 18 87/47 100 Nasal Cannula 2.0 12/02/17 12:32 65 18 131/51 100 Nasal Cannula 2.0 12/02/17 12:15 68 12/02/17 11:49 67 20 146/69 100 Nasal Cannula 2.0 12/02/17 11:30 100 Nasal Cannula 2.0 12/02/17 11:30 63 18 136/61 100 Nasal Cannula 2.0 General Appearance: no apparent distress Eyes: normal inspection, EOMI Neck: supple, no adenopathy, thyroid normal Respiratory/Chest: chest non-tender, lungs clear, normal breath sounds, no accessory muscle use Cardiovascular: regular rate, rhythm, no JVD, no murmur Abdomen: normal bowel sounds, non tender, soft, no organomegaly Extremities: normal inspection, no pedal edema, normal capillary refill Neurologic/Psych: alert, normal mood/affect, oriented x 3 Skin: normal color, no jaundice, warm/dry, no rash Laboratory Results Last 24 Hours Test 12/02/17 11:38 12/02/17 11:55 White Blood Count 7.16 K/uL Red Blood Count 2.36 M/uL Hemoglobin 7.6 g/dL Hematocrit 23.0 % Mean Corpuscular Volume 97.5 fL Mean Corpuscular Hemoglobin 32.2 pg Mean Corpuscular Hemoglobin Concent 33.0 g/dl Platelet Count 146 K/uL Mean Platelet Volume 10.8 fL Neutrophils (%) (Auto) 65.9 % Lymphocytes (%) (Auto) 21.5 % Monocytes (%) (Auto) 9.5 % Eosinophils (%) (Auto) 1.7 % Basophils (%) (Auto) 0.8 % Neutrophils # (Auto) 4.72 K/uL Lymphocytes # (Auto) 1.54 K/uL Monocytes # (Auto) 0.68 K/uL Eosinophils # (Auto) 0.12 K/uL Basophils # (Auto) 0.06 K/uL RDW Standard Deviation 51.0 fL RDW Coefficient of Variation 14.2 % Immature Granulocyte % (Auto) 0.6 % Immature Granulocyte # (Auto) 0.04 K/uL Large Platelets 1+ Prothrombin Time 22.1 SECONDS Prothromb Time International Ratio 2.1 Activated Partial Thromboplast Time 27.8 SECONDS Partial Thromboplastin Ratio 1.1 Sodium Level 141 mmol/L Potassium Level 3.8 mmol/L Chloride Level 108 mmol/L Carbon Dioxide Level 25 mmol/L Anion Gap 8.0 mmol/L 18.0 mmol/L Blood Urea Nitrogen 37 mg/dl Creatinine 1.50 mg/dl Est Creatinine Clear Calc Drug Dose 38.0 ml/min Estimated GFR () 38.3 Estimated GFR (Non- 33.0 BUN/Creatinine Ratio 24.6 Random Glucose 154 mg/dl Calcium Level 7.7 mg/dl Total Bilirubin 0.2 mg/dl Direct Bilirubin < 0.1 mg/dl Aspartate Amino Transf (AST/SGOT) 13 U/L Alanine Aminotransferase (ALT/SGPT) 12 U/L Alkaline Phosphatase 57 U/L Troponin I < 0.015 ng/ml Total Protein 5.7 gm/dl Albumin 2.6 gm/dl Lipase 108 U/L Bedside Hemoglobin 7.5 g/dl Bedside Hematocrit 22 % Bedside Sodium 142 mEq/L Bedside Potassium 3.8 mEq/L Bedside Chloride 104 mEq/L Bedside Total CO2 24 mEq/l Bedside Blood Urea Nitrogen 35 mg/dl Bedside Creatinine 1.5 mg/dl Bedside Glucose (other) 156 mg/dl Bedside Ionized Calcium (Estefany) 1.08 mmol/l Impression Patient is a 77 year old female with rectal bleeding soon after starting coumadin. Because she has only minimal discomfort and the blood is red, most likely this represents a diverticular bleed. Also considered is a hemorrhoidal bleed but would not except this brisk bleeding from hemorrhoids. Also considered but less likely is an upper GI bleed from ulcers. Plan 1. Appreciate primary services management of blood/fluid resuscitation. 2. Agree with frequent monitoring of Hb/Hct. 3. Would change Protonix IV push to a PPI drip. 4. Will gently prep this evening for colonoscopy tomorrow. I have seen , examined and agree with the plan as outlined by TITO Christy as above. -exam reveals soft abd -Recent initiation of Coumadin with subsequent development of rectal bleeding. She has no overt upper GI pathology. CT scan of her abdomen was normal, including no collection of blood fluid or food in her stomach. Presentation while she fits the picture of likely diverticular bleed. Agree with resuscitation with blood and FFP given her therapeutic INR. With notes careful consideration volume overload during resuscitation. During her examination today shows a blood pressure 114/69 and a pulse of 63. -While she is being resuscitated will initiate PPI infusion although I do think this is a lower GI bleed. We will plan on prep today p.o. after midnight and colonoscopy in the morning.
[2017-12-02] MEDS ORDERED: PANTOprazole INJ 80 MG in DEXTROSE 5% 100ML IV SCH (16:30)
--- NOTE | 2017-12-02 16:34 | Critical Care Consultation ---
Critical Care Consultation Date of Consultation: Dec 02, 2017. Attending Physician: Germaine Collazo DO Reason for Consultation: GI bleeding History of Present Illness Dear Dr. Collazo: Thank you for your kind referral Mrs. Dia to critical care service. This is a 77-year-old female with history of coronary artery disease status post PCI in 2007, and RCA stenting in 2010, history of partial bowel obstruction for removal of the mass according to the patient, history of diabetes, coronary artery disease, chronic kidney disease, obstructive sleep apnea, home O2 dependent, recently the patient was started on Coumadin according to her for the past 3 weeks due to concerns about CVA. The patient does not have any neurologic deficit. The patient presents to the ED due to frequent bowel movement that appears to be watery with maroon blood. She felt dizzy and thirsty. When the patient arrived in the ED, underwent a workup which revealed hematocrit of 21 and BUN/creatinine were elevated. The BUN/creatinine ratio was also elevated. The patient did not have any evidence of nausea or vomiting. She did have epigastric pain and left upper quadrant pain. She denies any vomiting or indigestion. No abdominal pain otherwise. She feels this is sitting up. The rest of his review of system was unremarkable. The patient denies any history of GI bleeding in the past. She never had allergies to blood transfusion as well. She does have multiple allergies to antibiotics mainly. The patient is ex-smoker, she does not have any industrial exposure, her daughter is her caregiver. In the ED, also, the patient received an abdominal CT which did not reveal any intra-abdominal pathology other than diverticulosis without diverticulitis. She does have gallstones but no evidence of biliary dilation. Due to the presence of GI bleed, an elderly person, the patient was admitted to the ICU for further management. Family History FHx: diabetes FHx: heart disease FHx: hypertension Social History Smoking Status: Never Smoker Smokeless Tobacco Use: No Alcohol Use: none Drug Use: none Marital Status: Housing Status: lives alone Occupation Status: retired Allergies Coded Allergies: Cephalosporins (Verified Allergy, Mild, 08/04/17) Hydrocodone (Verified Allergy, Mild, 08/04/17) Neomycin (Verified Allergy, Mild, 08/04/17) Propoxyphene (Verified Allergy, Mild, 08/04/17) Doxycycline (Verified Allergy, Unknown, UNKNOWN, 08/04/17) Sulfa Antibiotics (Verified Allergy, Unknown, ., 08/04/17) Home Medications Scheduled Albuterol Sulf (Proventil 0.083% 2.5MG/3ML), 2.5 MG INH BID Aspirin (Aspirin Ec), 81 MG PO DAILY Carvedilol (Carvedilol), 6.25 MG PO BID Coenzyme Q10 (Ubidecarenone) (Co Q10), 100 MG PO QPM Diltiazem Hcl Ext Rel (Tiazac), 180 MG PO DAILY Escitalopram Oxalate (Lexapro), 5 MG PO DAILY Famotidine (Pepcid), 40 MG PO DAILY Furosemide (Lasix), 40 MG PO BID Home O2 Therapy (Oxygen), 3 LITERS NA PRN Isosorbide Mononitrate Ext Rel (Imdur Ext Rel), 120 MG PO BID Magnesium Oxide (Mag-Ox), 400 MG PO DAILY Mometasone Furoate-Formoterol (Dulera 100/5 Mcg), 1 PUFF INH BID Multivitamin (Multivitamin), 1 TAB PO DAILY Nitroglycerin (Nitrostat), 0.4 MG UT PRN Pantoprazole (Pantoprazole Sodium), 40 MG PO QAM Sitagliptin Phosphate (Januvia), 100 MG PO DAILY Warfarin Sod (Jantoven), 5 MG PO DAILY Scheduled PRN Albuterol Hfa (Ventolin Hfa), 2-4 PUFFS INH Q6H PRN for SOB/Wheezing Current Inpatient Medications Current Inpatient Medications Medications (Trade) Dose Ordered Sig/Trixie Route Start Time Stop Time Status Last Admin Dose Admin Ioversol (Optiray 320) 125 ml UD PRN IV 12/02/17 12:15 12/06/17 12:14 Acetaminophen (Tylenol Tab) 650 mg Q4H PRN PO 12/02/17 14:15 01/01/18 14:14 Lorazepam (Ativan Tab) 0.5 mg Q4H PRN PO 12/02/17 14:15 01/01/18 14:14 Levalbuterol (Xopenex 1.25MG/ 3ML Neb) 1.25 mg Q2H PRN INH 12/02/17 14:15 01/01/18 14:14 Al Hydrox/Mg Hydrox/Simethicone (Maalox Max Susp) 15 ml Q4H PRN PO 12/02/17 14:15 01/01/18 14:14 Ondansetron HCl (Zofran Inj) 4 mg Q6H PRN IV 12/02/17 14:15 01/01/18 14:14 Miscellaneous Information (Icu Protocol For Hyperglycemia) 1 ea PRN PRN N/A 12/02/17 14:15 12/04/17 14:14 Glucose (Glucose 40% Gel) 15-30 GRAMS 15 GRAMS... UD PRN PO 12/02/17 14:15 01/01/18 14:14 Glucose (Glucose Chew Tab) 4-8 Tablets 4 Tabl... UD PRN PO 12/02/17 14:15 01/01/18 14:14 Dextrose (Dextrose 50% 50ML Syringe) 25-50ML OF 50% DW IV FOR... UD PRN IV 12/02/17 14:15 01/01/18 14:14 Glucagon (Glucagon Inj) 1 mg UD PRN SQ 12/02/17 14:15 01/01/18 14:14 Carvedilol (Coreg Tab) 6.25 mg BID PO 12/02/17 21:00 01/01/18 20:59 Diltiazem HCl (TIAzac CAP) 180 mg DAILY PO 12/03/17 09:00 01/02/18 08:59 Escitalopram Oxalate (Lexapro Tab) 5 mg DAILY PO 12/03/17 09:00 01/02/18 08:59 Isosorbide Mononitrate (Imdur Ext Rel Tab) 120 mg BID PO 12/02/17 21:00 01/01/18 20:59 Miscellaneous Information (Order Awaiting Action) 1 ea QS N/A 12/02/17 16:00 01/01/18 15:59 Miscellaneous Information (Consult Glycemic Management Pharmacy) 1 ea UD PRN N/A 12/02/17 15:37 01/01/18 15:36 Insulin Glargine (Lantus Solostar Pen) 10 units TODAY@2100 ONCE SC 12/02/17 21:00 12/02/17 21:01 Insulin Aspart (novoLOG ASPART) SLIDING SCALE Q6 SC 12/02/17 18:00 5/3/18 17:59 Insulin Aspart (novoLOG ASPART) SLIDING SCALE TODAY@0200 ONCE SC 12/03/17 02:00 12/03/17 02:01 Pantoprazole Sodium 80 mg/ Dextrose 120 ml @ 480 mls/hr 1630 IV 12/02/17 16:30 12/02/17 16:44 Pantoprazole Sodium 40 mg/ Dextrose 100 ml @ 20 mls/hr Q5H IV 12/02/17 16:45 01/01/18 16:44 Review of Systems Constitutional: No fever, No chills, No sweats, No weight loss, No weakness, No fatigue, No problem reported ENT: No hearing loss, No unusual epistaxis, No nasal symptoms, No sore throat, No tinnitus, No dental problems, No trouble swallowing, No problem reported Respiratory: + shortness of breath Cardiovascular: No chest pain, No orthopnea, No PND, No edema, No claudication , No palpitations, No problem reported Abdomen: + pain (Epigastric and left upper quadrant.), + diarrhea Musculoskeletal: No joint pain, No muscle pain, No swelling, No calf pain, No problem reported Neurologic: No memory loss, No paralysis, No weakness, No numbness/tingling, No vertigo, No balance problems, No problem reported Psychiatric: No depression symptoms, No anhedonism, No anxiety, No insomnia, No substance abuse, No problem reported Endocrine: No fatigue, No excessive thirst, No excessive urination, No problem reported Hematologic / Lymphatic: No abnormal bleeding/bruising, No clotting problems, No swollen lymph nodes, No night sweats, No problem reported Allergic / Immunologic: No environmental allergies, No seasonal allergies, No pet sensitivities, No food allergies, No hives, No frequent infections, No poor healing, No prolonged convalescence, No problem reported Physical Exam Date Time Temp Pulse Resp B/P (MAP) Pulse Ox O2 Delivery O2 Flow Rate FiO2 12/02/17 15:24 36.4 71 16 121/61 100 12/02/17 14:54 36.6 64 20 103/60 100 2.0 12/02/17 14:39 36.6 71 20 113/52 100 2.0 12/02/17 14:19 36.6 67 20 112/37 100 12/02/17 14:04 36.6 70 20 146/57 100 2.0 12/02/17 13:49 36.5 65 20 112/84 100 2.0 12/02/17 13:35 36.5 68 18 137/72 100 12/02/17 13:16 36.3 64 18 133/62 100 2.0 12/02/17 13:01 36.2 68 18 87/47 100 2.0 12/02/17 12:57 66 18 87/47 100 Nasal Cannula 2.0 12/02/17 12:32 65 18 131/51 100 Nasal Cannula 2.0 12/02/17 12:15 68 12/02/17 11:49 67 20 146/69 100 Nasal Cannula 2.0 12/02/17 11:30 100 Nasal Cannula 2.0 12/02/17 11:30 63 18 136/61 100 Nasal Cannula 2.0 General Appearance: well-appearing, uncomfortable Eyes: PERRLA, EOMI, other (Pallor) ENT: other (Dry mucosa) Neck: other (Flat IJ) Respiratory: breath sounds normal Cardiovasular: normal S1S2, no M/G/R, no murmur Abdomen: LUQ TTP Upper Extremities: no edema Lower Extremities: no edema Neuro: alert, oriented x 3, normal motor exam, normal sensation Psychiatric: normal affect Laboratory Results Last 24 Hours Test 12/02/17 11:38 12/02/17 11:55 White Blood Count 7.16 K/uL Red Blood Count 2.36 M/uL Hemoglobin 7.6 g/dL Hematocrit 23.0 % Mean Corpuscular Volume 97.5 fL Mean Corpuscular Hemoglobin 32.2 pg Mean Corpuscular Hemoglobin Concent 33.0 g/dl Platelet Count 146 K/uL Mean Platelet Volume 10.8 fL Neutrophils (%) (Auto) 65.9 % Lymphocytes (%) (Auto) 21.5 % Monocytes (%) (Auto) 9.5 % Eosinophils (%) (Auto) 1.7 % Basophils (%) (Auto) 0.8 % Neutrophils # (Auto) 4.72 K/uL Lymphocytes # (Auto) 1.54 K/uL Monocytes # (Auto) 0.68 K/uL Eosinophils # (Auto) 0.12 K/uL Basophils # (Auto) 0.06 K/uL RDW Standard Deviation 51.0 fL RDW Coefficient of Variation 14.2 % Immature Granulocyte % (Auto) 0.6 % Immature Granulocyte # (Auto) 0.04 K/uL Large Platelets 1+ Prothrombin Time 22.1 SECONDS Prothromb Time International Ratio 2.1 Activated Partial Thromboplast Time 27.8 SECONDS Partial Thromboplastin Ratio 1.1 Sodium Level 141 mmol/L Potassium Level 3.8 mmol/L Chloride Level 108 mmol/L Carbon Dioxide Level 25 mmol/L Anion Gap 8.0 mmol/L 18.0 mmol/L Blood Urea Nitrogen 37 mg/dl Creatinine 1.50 mg/dl Est Creatinine Clear Calc Drug Dose 38.0 ml/min Estimated GFR () 38.3 Estimated GFR (Non- 33.0 BUN/Creatinine Ratio 24.6 Random Glucose 154 mg/dl Calcium Level 7.7 mg/dl Total Bilirubin 0.2 mg/dl Direct Bilirubin < 0.1 mg/dl Aspartate Amino Transf (AST/SGOT) 13 U/L Alanine Aminotransferase (ALT/SGPT) 12 U/L Alkaline Phosphatase 57 U/L Troponin I < 0.015 ng/ml Total Protein 5.7 gm/dl Albumin 2.6 gm/dl Lipase 108 U/L Bedside Hemoglobin 7.5 g/dl Bedside Hematocrit 22 % Bedside Sodium 142 mEq/L Bedside Potassium 3.8 mEq/L Bedside Chloride 104 mEq/L Bedside Total CO2 24 mEq/l Bedside Blood Urea Nitrogen 35 mg/dl Bedside Creatinine 1.5 mg/dl Bedside Glucose (other) 156 mg/dl Bedside Ionized Calcium (Estefany) 1.08 mmol/l Diagnostic Results Chest x-ray showed mild cardiomegaly, no infiltrate. Abdominal CT showed findings mentioned in the first section. Reviewed personally. Her labs also reviewed personally. Consistent with anemia, chronic kidney disease, elevated BUN/creatinine ratio. Assessment & Plan 1. GI bleeding, upper versus lower, the patient started on Protonix drip by Dr. Rodríguez, appreciate his input. 2. Chronic kidney disease, however the BUN/creatinine ratio is elevated possibly from GI bleeding. 3. Coronary artery disease status post PCI with RCA stenting in 2007 and 2010. 4. History of partial bowel resection due to benign growth according to the patient. 5. The patient is currently hemodynamically stable, she does not have any orthostatic changes. Plan: 1. Agree with blood transfusion. 2. Reverse coagulopathy with FFP. 3. No need for vitamin K. 4. The patient is hemodynamically stable and she does have right femoral triple -lumen catheter which needs to be reversed once the patient is no longer needed. As soon as possible. 5. GI consult, appreciated. 6. N.p.o. after midnight. 7. IV fluids after midnight. 8. Protonix drip. 9. Continue current medications, I would hold off on the Cardizem given GI bleeding, and the need for acceptable blood pressure in the morning for conscious sedation. 10. Check H&H every 8 hours. 11. Blood transfusion accordingly to keep hematocrit above then 21 or hemoglobin above than 7. 12. We will monitor in the ICU. 13. Venodyne boots. 14. Glucose control. 15. IV fluids. Thank you for the kind referral, case discussed with the staff on rounds and details. Critical care time spent with the patient was 45 minutes.
[2017-12-02] MEDS: PANTOprazole INJ 40 MG in DEXTROSE 5% 100ML IV SCH ×2 (16:53→21:04)
[2017-12-02] MEDS ORDERED: LAVAGE SOLUTION 4000ML PO SCH (17:30)
[2017-12-02] MEDS: INSULIN ASPART 100 UNITS/ML 3 ML PEN SC SCH ×2 (17:34→21:33)
[2017-12-02] MEDS ORDERED: NURSING VERBAL MED ORDER SCH (17:45)
[2017-12-02] MEDS: SODIUM CHLORIDE 0.9% 1000ML 1,000 ML IV SCH (18:26)
[2017-12-02] MEDS ORDERED: PANTOprazole INJ 40 MG in SYRINGE 0 ML IV SCH (21:00)
[2017-12-02] MEDS ORDERED: INSULIN GLARGINE SOLOSTAR 100 UNITS/ML 3 ML PEN SC ONE (21:00)
[2017-12-02] MEDS: MOMETASONE FUROATE-FORMOTEROL (DULERA) 200mcg/5mcg per inh INH SCH (21:17)
[2017-12-02] MEDS: CARVEDILOL 6.25 MG TAB PO SCH (21:19)
[2017-12-02] MEDS: ISOSORBIDE MONONITRATE 60 MG TABCR PO SCH (21:20)
[2017-12-02 23:30] LABS: HEMATOCRIT 16.6 % (37-47); HEMOGLOBIN 5.7 g/dL (12.0-16.0)
--- NOTE | 2017-12-02 23:31 | Critical Care Progress Note ---
Critical Care Progress Note Date of Service Dec 02, 2017. Critical Care Progress Note Patient had been receiving blood products prior to my arrival. Upon completion , she had repeat labs obtained which demonstrated a drop in her H&H from 7.6 and 23.0 to 5.7 and 16.6 despite receiving 2 units PRBCs and 4 units FFP. At this time, I did elect to order an additional 2 units of PRBCs as well as a repeat INR. Patient remains hemodynamically stable at this point. Per nursing , she continues to have bloody stools, however the quantity of blood has certainly decreased. I did reassess the patient who is resting comfortably. She offers no complaints. She does wear oxygen at home and is currently wearing nasal cannula. She does report that she is to use CPAP at home, however she has not done so recently. I did offer the patient CPAP in the event that she felt as though her symptoms require this. She declines at this point. We will continue to monitor the patient very closely during administration of PRBCs. I have personally spent 35 minutes of critical care time in the direct management of this patient. This is a life/limb threatening event. This includes time spent evaluating patient, direct bedside care, chart review, placing orders, interpretation of diagnostic studies, discussion with consultants, patient, and family members, as well as other required patient management activities. This time is exclusive of all separately billable procedures, and teaching time and separate from and in addition to any other critical care service time.
[2017-12-03] VITALS (39 sets, daily range): BP systolic 93–193; BP diastolic 53–98; PULSE 59–89; TEMP 36.4–37.1; O2SAT 94–100
[2017-12-03 00:25] LABS: INR 1.5 (0.9-1.1)
[2017-12-03] MEDS: PANTOprazole INJ 40 MG in DEXTROSE 5% 100ML IV SCH ×3 (01:17→11:28)
[2017-12-03] MEDS ORDERED: INSULIN ASPART 100 UNITS/ML 3 ML PEN SC ONE (02:00)
[2017-12-03 05:53] LABS: INR 1.5 (0.9-1.1)
[2017-12-03] MEDS: INSULIN ASPART 100 UNITS/ML 3 ML PEN SC SCH ×5 (06:00→20:53)
[2017-12-03 06:10] LABS: HEMATOCRIT 21.2 % (37-47); HEMOGLOBIN 7.3 g/dL (12.0-16.0); MEAN CELL VOLUME 87.6 fL (80-100); MEAN CORPUSCULAR HEMOGLOBIN 30.2 pg (25-34); MEAN CORPUSCULAR HGB CONC 34.4 g/dl (32-36); MEAN PLATELET VOLUME 10.8 fL (7.4-10.4); PLATELET COUNT 75 K/uL (130-400); RED CELL DISTRIBUTION WIDTH CV 17.2 % (11.5-14.5); RED CELL DISTRIBUTION WIDTH SD 54.3 fL (36.4-46.3)
[2017-12-03 06:12] LABS: BASO % 0.6 %; BASO ABS # 0.04 K/uL (0-0.2); EOS % 1.9 %; EOS ABS # 0.12 K/uL (0-0.5); IG# 0.02 K/uL (0.00-0.02); LYMPH % 22.3 %; LYMPH ABS # 1.43 K/uL (1.2-3.4); MONO % 13.4 %; MONO ABS # 0.86 K/uL (0.11-0.59); NEUT % 61.5 %; NEUT ABS # 3.93 K/uL (1.4-6.5)
[2017-12-03 06:37] LABS: CALCIUM 7.6 mg/dl (8.5-10.1); CREATININE 1.36 mg/dl (0.60-1.20); POTASSIUM 2.8 mmol/L (3.5-5.1)
[2017-12-03] MEDS: SODIUM CHLORIDE 0.9% 1000ML 1,000 ML IV SCH (08:27)
[2017-12-03] MEDS: POTASSIUM CHLR 20 MEQ / WTR 20 MEQ in PREMIXED WATER 100 ML IV SCH ×2 (08:27→10:17)
[2017-12-03] MEDS ORDERED: FAMOTIDINE 20 MG TAB PO SCH (09:00)
[2017-12-03] MEDS: ISOSORBIDE MONONITRATE 60 MG TABCR PO SCH ×2 (09:00→21:18)
[2017-12-03] MEDS: MOMETASONE FUROATE-FORMOTEROL (DULERA) 200mcg/5mcg per inh INH SCH ×2 (09:00→21:18)
[2017-12-03] MEDS: CARVEDILOL 6.25 MG TAB PO SCH ×2 (09:00→21:00)
[2017-12-03] MEDS: MAGNESIUM SULFATE 1GM / D5W 1 GM in PREMIXED IN D5W 100 ML IV SCH ×2 (09:45→11:28)
[2017-12-03] MEDS ORDERED: PROPOFOL IV EMULSION 10 MG/ML 20 ML VIAL IV ONE (12:53)
[2017-12-03] MEDS ORDERED: LIDOCAINE HCL 2% 2 ML VIAL (20MG/ML) ONE (12:53)
[2017-12-03] MEDS ORDERED: KETAMINE HCL INJ 50 MG/ML 10 ML VIAL ONE (13:06)
[2017-12-03] MEDS ORDERED: SODIUM CHLORIDE 0.9% INJ 10 ML VIAL ONE (13:07)
--- NOTE | 2017-12-03 13:16 | Critical Care Progress Note ---
Critical Care Progress Note Date of Service Dec 03, 2017. Attending Dr. Sanchez Subjective No events overnight, the patient continued to have bloody bowel movement with the prep, hematocrit dropped down to 15 and transfused 2 units of blood with hematocrit above then 21 currently. Her vital signs remained stable. Objective Physical exam on 12/03/2017 revealed stable vital signs, slightly hypertensive, S1 -S2, regular rate and rhythm, dry mucosa, lungs are clear, abdomen is benign, no edema. Labs were reviewed as well. Assessment & Plan 1. GI bleeding, appreciate GI input. Patient is going for endoscopy today. 2. Chronic kidney disease. 3. Coronary artery disease status post stenting in 2010. 4. Benign colonic polyps status post partial bowel resection. 5. Patient was started recently on Coumadin, etiology was unknown to me, patient so it is related to CVA. I did not find any evidence of venous thromboembolic events or A. fib at this point. Plan: 1. Endoscopy today, appreciate GI input. 2. Continue with IV fluid. 3. Potassium replacement. 4. Protonix drip until stated otherwise by GI. 5. Venodyne boots. 6. Hold off on Coumadin. 7. INR is 1.5, no need for any further FFP or vitamin K. 8. Continue her cardiac medications. 9. Her blood pressure is on the high side and she has been maintained on diltiazem, once the procedure is done we will restart the medications. 10. Continue to trend her hematocrit. 11. Transfuse accordingly to keep her hematocrit above the 21. 12. Case discussed with the staff on rounds and details. Thank you for your kind referral, will follow. Critical care time spent with the patient was 35 minutes Data Medications: Current Inpatient Medications Medications (Trade) Dose Ordered Sig/Trixie Route Start Time Stop Time Status Last Admin Dose Admin Ioversol (Optiray 320) 125 ml UD PRN IV 12/02/17 12:15 12/06/17 12:14 Acetaminophen (Tylenol Tab) 650 mg Q4H PRN PO 12/02/17 14:15 01/01/18 14:14 Lorazepam (Ativan Tab) 0.5 mg Q4H PRN PO 12/02/17 14:15 01/01/18 14:14 Levalbuterol (Xopenex 1.25MG/ 3ML Neb) 1.25 mg Q2H PRN INH 12/02/17 14:15 01/01/18 14:14 Al Hydrox/Mg Hydrox/Simethicone (Maalox Max Susp) 15 ml Q4H PRN PO 12/02/17 14:15 01/01/18 14:14 Ondansetron HCl (Zofran Inj) 4 mg Q6H PRN IV 12/02/17 14:15 01/01/18 14:14 Glucose (Glucose 40% Gel) 15-30 GRAMS 15 GRAMS... UD PRN PO 12/02/17 14:15 01/01/18 14:14 Glucose (Glucose Chew Tab) 4-8 Tablets 4 Tabl... UD PRN PO 12/02/17 14:15 01/01/18 14:14 Dextrose (Dextrose 50% 50ML Syringe) 25-50ML OF 50% DW IV FOR... UD PRN IV 12/02/17 14:15 01/01/18 14:14 Glucagon (Glucagon Inj) 1 mg UD PRN SQ 12/02/17 14:15 01/01/18 14:14 Carvedilol (Coreg Tab) 6.25 mg BID PO 12/02/17 21:00 01/01/18 20:59 12/02/17 21:19 6.25 MG Diltiazem HCl (TIAzac CAP) 180 mg DAILY PO 12/03/17 09:00 01/02/18 08:59 Escitalopram Oxalate (Lexapro Tab) 5 mg DAILY PO 12/03/17 09:00 01/02/18 08:59 Isosorbide Mononitrate (Imdur Ext Rel Tab) 120 mg BID PO 12/02/17 21:00 01/01/18 20:59 12/02/17 21:20 120 MG Miscellaneous Information (Consult Glycemic Management Pharmacy) 1 ea UD PRN N/A 12/02/17 15:37 01/01/18 15:36 Insulin Aspart (novoLOG ASPART) SLIDING SCALE Q6 SC 12/02/17 18:00 01/01/18 17:59 Pantoprazole Sodium 40 mg/ Dextrose 100 ml @ 20 mls/hr Q5H IV 12/02/17 16:45 01/01/18 16:44 12/03/17 11:28 20 MLS/HR Mometasone Furoate/ Formoterol Fumar (Dulera) 1 ea BID INH 12/02/17 21:00 01/01/18 20:59 12/02/17 21:17 1 EA Sodium Chloride 1,000 ml @ 75 mls/hr [id number] IV 12/02/17 18:15 01/01/18 18:14 12/03/17 08:27 75 MLS/HR Vital Signs: Date Time Temp Pulse Resp B/P (MAP) Pulse Ox O2 Delivery O2 Flow Rate FiO2 12/03/17 12:37 36.8 65 18 144/61 (88) 100 Nasal Cannula 3 12/03/17 11:30 Nasal Cannula 2.0 12/03/17 11:01 37.0 65 15 145/69 (94) 100 Nasal Cannula 2.0 12/03/17 11:00 70 12 98 12/03/17 10:01 64 15 128/56 (80) 12/03/17 10:00 65 15 100 12/03/17 09:01 36.5 69 18 100/64 (76) 100 Nasal Cannula 2.0 12/03/17 09:00 68 17 100 12/03/17 08:01 63 15 134/62 (86) 100 12/03/17 08:00 67 17 100 12/03/17 07:30 Nasal Cannula 2.0 40 12/03/17 07:30 36.8 72 16 107/63 (78) 99 Nasal Cannula 2.0 12/03/17 07:01 65 17 107/63 (78) 94 12/03/17 07:00 63 14 100 12/03/17 06:00 36.9 75 16 157/76 (103) 99 Nasal Cannula 2.0 12/03/17 04:11 36.5 70 17 99/53 100 12/03/17 04:00 36.5 73 20 99/53 (68) 100 Nasal Cannula 3.0 12/03/17 04:00 100 BiPAP 2.0 12/03/17 03:11 36.8 72 15 124/66 100 2.0 12/03/17 02:48 36.8 80 20 125/68 100 2.0 12/03/17 02:34 36.4 89 16 114/62 100 2.0 12/03/17 02:00 79 20 94/54 (67) 99 BiPAP 40 12/03/17 01:19 36.5 80 17 93/65 100 2.0 12/03/17 00:43 36.9 77 16 115/69 100 2.0 12/03/17 00:24 36.8 77 17 96/58 100 2.0 12/03/17 00:13 36.7 81 18 119/76 100 2.0 12/03/17 00:01 81 16 115/69 (84) 100 Nasal Cannula 3.0 12/03/17 00:01 100 Nasal Cannula 2.0 12/02/17 23:00 74 18 97/52 100 12/02/17 22:02 92 19 112/68 (103) 94 12/02/17 21:45 36.8 79 17 110/80 99 12/02/17 21:30 36.8 80 19 139/75 100 12/02/17 20:30 36.9 80 19 148/64 100 12/02/17 20:05 36.9 92 20 94/59 100 12/02/17 20:00 100 Nasal Cannula 2.0 12/02/17 19:51 36.9 86 20 115/71 100 12/02/17 19:15 36.6 103 17 132/73 100 12/02/17 18:45 36.6 75 18 140/76 100 12/02/17 18:32 36.6 76 18 145/61 100 12/02/17 18:10 36.6 85 16 147/102 100 12/02/17 18:00 36.6 71 18 119/67 99 12/02/17 17:34 36.9 76 19 125/58 99 12/02/17 17:19 36.9 77 14 132/65 97 12/02/17 16:24 36.7 68 17 139/64 100 12/02/17 16:00 36.4 74 16 107/59 100 Nasal Cannula 2.0 12/02/17 15:24 36.4 71 16 121/61 100 12/02/17 14:54 36.6 64 20 103/60 100 2.0 12/02/17 14:39 36.6 71 20 113/52 100 2.0 12/02/17 14:19 36.6 67 20 112/37 100 12/02/17 14:04 36.6 70 20 146/57 100 2.0 12/02/17 13:49 36.5 65 20 112/84 100 2.0 12/02/17 13:35 36.5 68 18 137/72 100 12/02/17 13:16 36.3 64 18 133/62 100 2.0 Laboratory Results: Last 24 Hours Test 12/02/17 15:41 12/02/17 20:59 12/02/17 22:53 12/02/17 23:01 Bedside Glucose 118 mg/dl 109 mg/dl 151 mg/dl Hemoglobin 5.7 g/dL Hematocrit 16.6 % Test 12/02/17 23:58 12/03/17 05:19 12/03/17 05:56 12/03/17 10:44 Prothrombin Time 15.7 SECONDS 15.4 SECONDS Prothromb Time International Ratio 1.5 1.5 White Blood Count 6.40 K/uL Red Blood Count 2.42 M/uL Hemoglobin 7.3 g/dL Hematocrit 21.2 % Mean Corpuscular Volume 87.6 fL Mean Corpuscular Hemoglobin 30.2 pg Mean Corpuscular Hemoglobin Concent 34.4 g/dl Platelet Count 75 K/uL Mean Platelet Volume 10.8 fL Neutrophils (%) (Auto) 61.5 % Lymphocytes (%) (Auto) 22.3 % Monocytes (%) (Auto) 13.4 % Eosinophils (%) (Auto) 1.9 % Basophils (%) (Auto) 0.6 % Neutrophils # (Auto) 3.93 K/uL Lymphocytes # (Auto) 1.43 K/uL Monocytes # (Auto) 0.86 K/uL Eosinophils # (Auto) 0.12 K/uL Basophils # (Auto) 0.04 K/uL RDW Standard Deviation 54.3 fL RDW Coefficient of Variation 17.2 % Immature Granulocyte % (Auto) 0.3 % Immature Granulocyte # (Auto) 0.02 K/uL Platelet Estimate DECREASED Red Blood Cell Morphology Unremarkable Sodium Level 144 mmol/L Potassium Level 2.8 mmol/L 3.3 mmol/L Chloride Level 110 mmol/L Carbon Dioxide Level 28 mmol/L Anion Gap 6.0 mmol/L Blood Urea Nitrogen 34 mg/dl Creatinine 1.36 mg/dl Est Creatinine Clear Calc Drug Dose 43.1 ml/min Estimated GFR () 43.1 Estimated GFR (Non- 37.2 BUN/Creatinine Ratio 25.3 Random Glucose 139 mg/dl Estimated Average Glucose 126 mg/dl Hemoglobin A1c 6.0 % Calcium Level 7.6 mg/dl Bedside Glucose 126 mg/dl
--- NOTE | 2017-12-03 13:43 | GI REPORT ---
Procedure Date: 12/03/2017 1:10 PM Procedure: Upper GI endoscopy Indications: Hematochezia Medicines: Monitored Anesthesia Care Complications: No immediate complications. Estimated blood loss: None. Estimated Blood Loss: Estimated blood loss: none. Procedure: Pre-Anesthesia Assessment: - Pre-Anesthesia Assessment: - Prior to the procedure, a History and Physical was performed, and patient medications, allergies and sensitivities were reviewed. The patient's tolerance of previous anesthesia was reviewed. Please see [employer] for complete details. - The risks and benefits of the procedure and the sedation options and risks were discussed with the patient. All questions were answered and informed consent was obtained. - Patient identification and proposed procedure were verified prior to the procedure by the physician and the nurse. The procedure was verified in the pre-procedure area in the procedure room. After obtaining informed consent, the endoscope was passed carefully and meticuously under direct vision and only advanced when the lumen was clearly identified, C02 insuflation was utilized throughout the entirity of the procedure. Throughout the procedure, the patient's blood pressure, pulse, and oxygen saturations were monitored continuously. After obtaining informed consent, the endoscope was passed under direct vision. Throughout the procedure, the patient's blood pressure, pulse, and oxygen saturations were monitored continuously. The scope was introduced through the mouth, and advanced to the second part of duodenum. The upper GI endoscopy was accomplished without difficulty. The patient tolerated the procedure well. Findings: A hiatal hernia was present. The esophagus and gastroesophageal junction were examined with white light and narrow band imaging (NBI) from a forward view and retroflexed position. Salazar's esophagus was present. This involved the mucosa extending to the Z-line. Scattered islands of salmon-colored mucosa were present. The maximum longitudinal extent of these esophageal mucosal changes was 2 cm in length. Mucosa was biopsied with a cold forceps for histology in a targeted manner at the gastroesophageal junction. One specimen bottle was sent to pathology. The entire examined stomach was normal. The examined duodenum was normal. No evidence of ongoing or recent GI bleeding Impression: - Hiatal hernia. - Salazar's esophagus. Biopsied. - Normal stomach. - Normal examined duodenum. Recommendation: - Use Prilosec (omeprazole) 20 mg PO daily. - Stop the Protonix gtt - Perform a colonoscopy today. Adam Trejo MD 12/03/2017 1:43:36 PM This report has been signed electronically. Note Initiated On: 12/03/2017 1:10 PM I attest to the content of the Intraoperative Record and orders documented therein, exceptions below
--- NOTE | 2017-12-03 13:50 | GI REPORT ---
Procedure Date: 12/03/2017 1:23 PM Procedure: Colonoscopy Indications: Hematochezia Medicines: Monitored Anesthesia Care Complications: No immediate complications. Estimated blood loss: None. Estimated Blood Loss: Estimated blood loss: none. Procedure: Pre-Anesthesia Assessment: - Pre-Anesthesia Assessment: - Prior to the procedure, a History and Physical was performed, and patient medications, allergies and sensitivities were reviewed. The patient's tolerance of previous anesthesia was reviewed. Please see [employer] for complete details. - The risks and benefits of the procedure and the sedation options and risks were discussed with the patient. All questions were answered and informed consent was obtained. - Patient identification and proposed procedure were verified prior to the procedure by the physician and the nurse. The procedure was verified in the pre-procedure area in the procedure room. After obtaining informed consent, the endoscope was passed carefully and meticuously under direct vision and only advanced when the lumen was clearly identified, C02 insuflation was utilized throughout the entirity of the procedure. Throughout the procedure, the patient's blood pressure, pulse, and oxygen saturations were monitored continuously. After I obtained informed consent, the scope was passed under direct vision. Throughout the procedure, the patient's blood pressure, pulse, and oxygen saturations were monitored continuously. The scope was introduced through the anus and advanced to the terminal ileum, with identification of the appendiceal orifice and IC valve. The colonoscopy was performed without difficulty. The patient tolerated the procedure well. The quality of the bowel preparation was good. Findings: Multiple small and large-mouthed diverticula were found in the sigmoid colon, descending colon and ascending colon. No evidence of active bleeding, diverticuli with clots, or bleeding lesions. Some christina colored and marroon liquid was aspirated in the colon lumen. The terminal ileum appeared normal. The prep quality was actually better than expected, no active bleeding was identified. Internal hemorrhoids were found during retroflexion. Impression: - Diverticulosis in the sigmoid colon, in the descending colon and in the ascending colon. - The examined portion of the ileum was normal. - Internal hemorrhoids. - Suspect this was a diverticular hemorrhage exacerbated by coumadin therapy. Recommendation: - Return patient [facility] for [facility]. - If has evidence of bleeding with hemodynamic change, then recommend tagged RBC scan and potential IR embolization. - Would be an advocate of stopping coumadin - Ok to start liquid diet and advance as clinical status determines. Adam Trejo MD 12/03/2017 1:50:19 PM This report has been signed electronically. Note Initiated On: 12/03/2017 1:23 PM I attest to the content of the Intraoperative Record and orders documented therein, exceptions below
--- NOTE | 2017-12-03 14:01 | Anesthesiology Progress Note ---
Anesthesia Post Op Note Date & Time Dec 03, 2017 at 14:01 Vital Signs Pain Intensity: 0.0 Vital Signs Past 12 Hours Date Time Temp Pulse Resp B/P (MAP) Pulse Ox O2 Delivery O2 Flow Rate FiO2 12/03/17 13:45 68 16 116/57 (76) 96 Nasal Cannula 2 12/03/17 12:37 36.8 65 18 144/61 (88) 100 Nasal Cannula 3 12/03/17 11:30 Nasal Cannula 2.0 12/03/17 11:01 37.0 65 15 145/69 (94) 100 Nasal Cannula 2.0 12/03/17 11:00 70 12 98 12/03/17 10:01 64 15 128/56 (80) 12/03/17 10:00 65 15 100 12/03/17 09:01 36.5 69 18 100/64 (76) 100 Nasal Cannula 2.0 12/03/17 09:00 68 17 100 12/03/17 08:01 63 15 134/62 (86) 100 12/03/17 08:00 67 17 100 12/03/17 08:00 Nasal Cannula 12/03/17 07:30 Nasal Cannula 2.0 40 12/03/17 07:30 36.8 72 16 107/63 (78) 99 Nasal Cannula 2.0 12/03/17 07:01 65 17 107/63 (78) 94 12/03/17 07:00 63 14 100 12/03/17 06:00 36.9 75 16 157/76 (103) 99 Nasal Cannula 2.0 12/03/17 04:11 36.5 70 17 99/53 100 12/03/17 04:00 36.5 73 20 99/53 (68) 100 Nasal Cannula 3.0 12/03/17 04:00 100 BiPAP 2.0 12/03/17 03:11 36.8 72 15 124/66 100 2.0 12/03/17 02:48 36.8 80 20 125/68 100 2.0 12/03/17 02:34 36.4 89 16 114/62 100 2.0 Notes Mental Status: alert / awake / arousable, participated in evaluation Pt Amnestic to Procedure: Yes Nausea / Vomiting: adequately controlled Pain: adequately controlled Airway Patency, RR, SpO2: stable & adequate BP & HR: stable & adequate Hydration State: stable & adequate Anesthetic Complications: no major complications apparent
[2017-12-03] MEDS ORDERED: PANTOprazole SOD 40 MG TAB PO STA (15:00)
[2017-12-03 15:11] LABS: HEMATOCRIT 20.2 % (37-47); HEMOGLOBIN 6.9 g/dL (12.0-16.0)
[2017-12-03] MEDS: ESCITALOPRAM OXALATE 10 MG TAB PO SCH (15:30)
[2017-12-03] MEDS: DILTIAZEM HCL (TIAzac) 180 MG CAPCR PO SCH (15:31)
--- NOTE | 2017-12-03 17:14 | Progress Note ---
Subjective Date of Service: Dec 03, 2017. Subjective Pt evaluation today including: conversation w/ patient, physical exam, chart review, lab review, review of studies (EGD/colonoscopy ), conversation w/ e business consultant (GI), review of inpatient medication list Pain: denies abd pain PO Intake: npo, just returned from endoscopy Voiding: requires PRN straight cath BPs yesterday were low but normalized after receiving PRBCs s/p EGD/colonoscopy today denied any GI sx's during my visit feels ok denied any dyspnea Problem List Medical Problems: (1) Anemia Status: Acute (2) Anticoagulated Status: Acute (3) Foot injury Status: Acute (4) Hypotension Status: Acute (5) Lower GI bleeding Status: Acute (6) Precordial chest pain Status: Acute Review of Systems Constitutional: No fever Respiratory: No shortness of breath Cardiac: No chest pain Abdomen: No pain, No nausea, No vomiting Objective Vital Signs Date Time Temp Pulse Resp B/P (MAP) Pulse Ox O2 Delivery O2 Flow Rate FiO2 12/03/17 14:30 Nasal Cannula 2.0 12/03/17 14:15 66 18 136/60 (85) 99 Nasal Cannula 2 40 12/03/17 14:00 64 18 144/60 (88) 99 Nasal Cannula 2 12/03/17 13:45 68 16 116/57 (76) 96 Nasal Cannula 2 12/03/17 12:37 36.8 65 18 144/61 (88) 100 Nasal Cannula 3 12/03/17 11:30 Nasal Cannula 2.0 12/03/17 11:01 37.0 65 15 145/69 (94) 100 Nasal Cannula 2.0 12/03/17 11:00 70 12 98 12/03/17 10:01 64 15 128/56 (80) 12/03/17 10:00 65 15 100 12/03/17 09:01 36.5 69 18 100/64 (76) 100 Nasal Cannula 2.0 12/03/17 09:00 68 17 100 12/03/17 08:01 63 15 134/62 (86) 100 12/03/17 08:00 67 17 100 12/03/17 08:00 Nasal Cannula 12/03/17 07:30 Nasal Cannula 2.0 40 12/03/17 07:30 36.8 72 16 107/63 (78) 99 Nasal Cannula 2.0 12/03/17 07:01 65 17 107/63 (78) 94 12/03/17 07:00 63 14 100 12/03/17 06:00 36.9 75 16 157/76 (103) 99 Nasal Cannula 2.0 12/03/17 04:11 36.5 70 17 99/53 100 12/03/17 04:00 36.5 73 20 99/53 (68) 100 Nasal Cannula 3.0 12/03/17 04:00 100 BiPAP 2.0 12/03/17 03:11 36.8 72 15 124/66 100 2.0 12/03/17 02:48 36.8 80 20 125/68 100 2.0 12/03/17 02:34 36.4 89 16 114/62 100 2.0 12/03/17 02:00 79 20 94/54 (67) 99 BiPAP 40 12/03/17 01:19 36.5 80 17 93/65 100 2.0 12/03/17 00:43 36.9 77 16 115/69 100 2.0 12/03/17 00:24 36.8 77 17 96/58 100 2.0 12/03/17 00:13 36.7 81 18 119/76 100 2.0 12/03/17 00:01 81 16 115/69 (84) 100 Nasal Cannula 3.0 12/03/17 00:01 100 Nasal Cannula 2.0 12/02/17 23:00 74 18 97/52 100 12/02/17 22:02 92 19 112/68 (103) 94 12/02/17 21:45 36.8 79 17 110/80 99 12/02/17 21:30 36.8 80 19 139/75 100 12/02/17 20:30 36.9 80 19 148/64 100 12/02/17 20:05 36.9 92 20 94/59 100 12/02/17 20:00 100 Nasal Cannula 2.0 12/02/17 19:51 36.9 86 20 115/71 100 12/02/17 19:15 36.6 103 17 132/73 100 12/02/17 18:45 36.6 75 18 140/76 100 12/02/17 18:32 36.6 76 18 145/61 100 12/02/17 18:10 36.6 85 16 147/102 100 4/3/18 18:00 36.6 71 18 119/67 99 12/02/17 17:34 36.9 76 19 125/58 99 12/02/17 17:19 36.9 77 14 132/65 97 Physical Exam General Appearance: no apparent distress, + obese ENT: pharynx normal Neck: no JVD Respiratory/Chest: lungs clear, no respiratory distress, no accessory muscle use Cardiovascular: regular rate, rhythm, no edema, no gallop, no JVD, no murmur Abdomen: normal bowel sounds, non tender, soft, no organomegaly Extremities: no pedal edema Neurologic/Psychiatric: alert, oriented x 3 Skin: + pallor Laboratory Results Last 24 Hours Test 12/02/17 20:59 12/02/17 22:53 12/02/17 23:01 12/02/17 23:58 Bedside Glucose 109 mg/dl 151 mg/dl Hemoglobin 5.7 g/dL Hematocrit 16.6 % Prothrombin Time 15.7 SECONDS Prothromb Time International Ratio 1.5 Test 12/03/17 05:19 12/03/17 05:56 12/03/17 10:44 12/03/17 14:45 White Blood Count 6.40 K/uL Red Blood Count 2.42 M/uL Hemoglobin 7.3 g/dL 6.9 g/dL Hematocrit 21.2 % 20.2 % Mean Corpuscular Volume 87.6 fL Mean Corpuscular Hemoglobin 30.2 pg Mean Corpuscular Hemoglobin Concent 34.4 g/dl Platelet Count 75 K/uL Mean Platelet Volume 10.8 fL Neutrophils (%) (Auto) 61.5 % Lymphocytes (%) (Auto) 22.3 % Monocytes (%) (Auto) 13.4 % Eosinophils (%) (Auto) 1.9 % Basophils (%) (Auto) 0.6 % Neutrophils # (Auto) 3.93 K/uL Lymphocytes # (Auto) 1.43 K/uL Monocytes # (Auto) 0.86 K/uL Eosinophils # (Auto) 0.12 K/uL Basophils # (Auto) 0.04 K/uL RDW Standard Deviation 54.3 fL RDW Coefficient of Variation 17.2 % Immature Granulocyte % (Auto) 0.3 % Immature Granulocyte # (Auto) 0.02 K/uL Platelet Estimate DECREASED Red Blood Cell Morphology Unremarkable Prothrombin Time 15.4 SECONDS Prothromb Time International Ratio 1.5 Sodium Level 144 mmol/L Potassium Level 2.8 mmol/L 3.3 mmol/L Chloride Level 110 mmol/L Carbon Dioxide Level 28 mmol/L Anion Gap 6.0 mmol/L Blood Urea Nitrogen 34 mg/dl Creatinine 1.36 mg/dl Est Creatinine Clear Calc Drug Dose 43.1 ml/min Estimated GFR () 43.1 Estimated GFR (Non- 37.2 BUN/Creatinine Ratio 25.3 Random Glucose 139 mg/dl Estimated Average Glucose 126 mg/dl Hemoglobin A1c 6.0 % Calcium Level 7.6 mg/dl Bedside Glucose 126 mg/dl Test 12/03/17 15:20 Urine Color YELLOW Urine Appearance CLOUDY Urine pH 5.0 Urine Specific [place] 1.028 Urine Protein NEG Urine Glucose (UA) NEG Urine Ketones NEG Urine Occult Blood 1+ Urine Nitrite NEG Urine Bilirubin NEG Urine Urobilinogen NEG Urine Leukocyte Esterase MODERATE Urine WBC (Auto) 10-30 /hpf Urine RBC (Auto) 0-4 /hpf Urine Hyaline Casts (Auto) 1-5 /lpf Urine Epithelial Cells (Auto) >30 /lpf Urine Bacteria (Auto) NEG Urine Renal Epithelial Cells /lpf Urine Pathogenic Casts /lpf Urine Yeast (Auto) Assessment and Plan 77yo female - 1. hemorrhagic shock 2nd to lower GI bleeding - resolved. 2. acute blood loss anemia 2nd to presumed lower GI bleeding - s/p 4 units PRBCSs; repeat Hb this afternoon 6.9; would recommend additional 2 units of PRBCs but defer that decision to critical care. 3. GI bleeding - likely lower, from extensive diverticular disease - no overt bleeding today. s/p EGD with no source of bleeding. s/p colonoscopy today w/ extensive diverticular disease and old, maroon-liquid stool - spoke with GI and they feel bleeding was likely from diverticulosis. Cont serial H/H's. Stop PPI drip. Diet per GI. 4. 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 5. DVT proph - SCDs; chemical means contraindicated. 6. h/o bovine aortic valve replacement - noted. 7. h/o CAD - no ischemic sx's at this time; transfuse PRBCs as above. 8. chronic diastolic CHF - compensated at this time. 9. HTN - was in shock transiently yesterday, now resolved, and BPs climbing; re -institute home BP meds as needed. 10. LAINE/OHS - O2/CPAP. 11. hypokalemia - replaced by critical care team. BMP am. 12. T2DM - controlled. 13. prolonged QTc - recheck EKG am; replace low K; repeat Mag and K levels in am. 14. paroxysmal a. fib - in NSR; no further coumadin given the extent of her GI bleeding. Her coumadin has been reversed with FFP. 15. FEN - continue gentle hydration; lytes in AM; diet per GI. Continued [facility] stay due to: inadequate po fluid intake, multiple IV medications needed
[2017-12-03] MEDS ORDERED: NURSING VERBAL MED ORDER ONE (20:45)
[2017-12-03 22:35] LABS: CALCIUM 7.4 mg/dl (8.5-10.1); CREATININE 1.12 mg/dl (0.60-1.20); POTASSIUM 2.8 mmol/L (3.5-5.1)
[2017-12-03 22:39] LABS: HEMATOCRIT 20.8 % (37-47); HEMOGLOBIN 7.1 g/dL (12.0-16.0); MEAN CORPUSCULAR HEMOGLOBIN 29.7 pg (25-34); MEAN CORPUSCULAR HGB CONC 34.1 g/dl (32-36); MEAN PLATELET VOLUME 9.9 fL (7.4-10.4); PLATELET COUNT 65 K/uL (130-400); RED CELL DISTRIBUTION WIDTH CV 18.3 % (11.5-14.5); RED CELL DISTRIBUTION WIDTH SD 56.7 fL (36.4-46.3); WHITE BLOOD COUNT 7.86 K/uL (4.8-10.8)
[2017-12-03] MEDS ORDERED: POTASSIUM CHLR 20 MEQ / WTR 20 MEQ in PREMIXED WATER 100 ML IV STA (23:06)
--- NOTE | 2017-12-03 23:10 | Critical Care Progress Note ---
Critical Care Progress Note Date of Service Dec 03, 2017. Critical Care Progress Note At change of shift, we were awaiting complete transfusion of additional unit of PRBCs. At approximately 1 hour after completion of transfusion, repeat labs were ordered by myself. Patient was found to have a consistently low H&H of 7.1 and 20.8, respectively. Her platelets continue to trend down and are currently at 65,000. Of concern, her potassium is 2.8 which has been problematic throughout the day. She recently began clears, however she has had no great progression of her diet to this point. At this point, I did elect to transfuse the patient and additional 1 unit of PRBCs. She was provided 30 mEq KCl intravenously. I was hesitant at providing oral potassium overnight as we will see how she continues to tolerate clears. Certainly, with improvement of p.o. intake, the patient eventually will be supplemented with oral potassium chloride. I have personally spent 35 minutes of critical care time in the direct management of this patient. This is a life/limb threatening event. This includes time spent evaluating patient, direct bedside care, chart review, placing orders, interpretation of diagnostic studies, discussion with consultants, patient, and family members, as well as other required patient management activities. This time is exclusive of all separately billable procedures, and teaching time and separate from and in addition to any other critical care service time.
[2017-12-03] MEDS: POTASSIUM CHLR 10 MEQ / WTR 10 MEQ in PREMIXED WATER 100 ML IV SCH (23:28)
[2017-12-04] VITALS (26 sets, daily range): BP systolic 112–181; BP diastolic 53–98; PULSE 52–79; TEMP 36.7–37.1; O2SAT 88–100
[2017-12-04] MEDS: POTASSIUM CHLR 10 MEQ / WTR 10 MEQ in PREMIXED WATER 100 ML IV SCH ×2 (00:25→01:19)
[2017-12-04] MEDS: D5W NORMOSOL-R 1,000 ML IV SCH ×2 (03:45→07:40)
[2017-12-04 05:04] LABS: HEMATOCRIT 22.4 % (37-47); HEMOGLOBIN 7.5 g/dL (12.0-16.0); MEAN CELL VOLUME 86.2 fL (80-100); MEAN CORPUSCULAR HEMOGLOBIN 28.8 pg (25-34); MEAN CORPUSCULAR HGB CONC 33.5 g/dl (32-36); RED CELL DISTRIBUTION WIDTH CV 18.3 % (11.5-14.5); RED CELL DISTRIBUTION WIDTH SD 55.6 fL (36.4-46.3); WHITE BLOOD COUNT 7.77 K/uL (4.8-10.8)
[2017-12-04 05:15] LABS: MEAN PLATELET VOLUME 10.3 fL (7.4-10.4); PLATELET COUNT 69 K/uL (130-400)
[2017-12-04 05:36] LABS: BASO % 0.5 %; BASO ABS # 0.04 K/uL (0-0.2); EOS % 4.8 %; EOS ABS # 0.37 K/uL (0-0.5); IG# 0.04 K/uL (0.00-0.02); LYMPH % 23.9 %; LYMPH ABS # 1.86 K/uL (1.2-3.4); MONO ABS # 1.09 K/uL (0.11-0.59); NEUT % 56.3 %; NEUT ABS # 4.37 K/uL (1.4-6.5)
[2017-12-04 05:38] LABS: CALCIUM 7.5 mg/dl (8.5-10.1); CREATININE 0.92 mg/dl (0.60-1.20); POTASSIUM 3.3 mmol/L (3.5-5.1)
[2017-12-04] MEDS: INSULIN ASPART 100 UNITS/ML 3 ML PEN SC SCH ×4 (06:45→20:45)
[2017-12-04] MEDS ORDERED: NITROGLYCERIN 2% OINTMENT 30GM TUBE EXT ONE (07:30)
[2017-12-04] MEDS: CARVEDILOL 6.25 MG TAB PO SCH ×2 (07:39→19:54)
[2017-12-04] MEDS: ISOSORBIDE MONONITRATE 60 MG TABCR PO SCH ×2 (07:39→19:55)
[2017-12-04] MEDS: PANTOprazole SOD 40 MG TAB PO SCH (07:39)
[2017-12-04] MEDS: MOMETASONE FUROATE-FORMOTEROL (DULERA) 200mcg/5mcg per inh INH SCH ×2 (07:40→19:56)
[2017-12-04] MEDS: ESCITALOPRAM OXALATE 10 MG TAB PO SCH (08:32)
[2017-12-04] MEDS: DILTIAZEM HCL (TIAzac) 180 MG CAPCR PO SCH (08:32)
[2017-12-04 08:36] LABS: CKMB 1.4 ng/ml (0.5-3.6)
--- NOTE | 2017-12-04 08:39 | DIAGNOSTIC IMAGING REPORT ---
CHEST ONE VIEW PORTABLE HISTORY: Atypical chest pain. COMPARISON: Chest 12/02/2017. FINDINGS: Interval development of interstitial and vascular thickening consistent with mild pulmonary edema. The heart is mildly enlarged. No pneumothorax. No pleural effusions. There is an aortic valve prosthesis. IMPRESSION: Interval development of mild pulmonary edema. Electronically signed by: Kevin Del Rio M.D. 12/04/2017 8:06 AM Dictated Date/Time: 12/04/2017 8:00 AM
[2017-12-04] MEDS ORDERED: POTASSIUM CHLORIDE 20 MEQ/15 ML UDC PO ONE (08:45)
--- NOTE | 2017-12-04 10:51 | Pharmacy Progress Note ---
Glycemic Control Progress Note Date of Service Dec 04, 2017. Scope Glycemic Pharmacist consulted for glycemic control to write orders per [facility] inpatient glycemic control protocol. Objective Accuchecks BSG (last 24hrs): Test 12/03/17 11:30 12/03/17 15:57 12/03/17 20:31 12/03/17 22:06 Bedside Glucose 125 mg/dl (70-90) 107 mg/dl (70-90) 115 mg/dl (70-90) Random Glucose 165 mg/dl (70-99) Test 12/04/17 04:52 12/04/17 04:56 Random Glucose 115 mg/dl (70-99) Bedside Glucose 134 mg/dl (70-90) HbA1c: Test 12/03/17 05:19 Hemoglobin A1c 6.0 % (4.5-5.6) H Recent Pertinent Medications The patient is currently receiving: * Basal insulin: Lantus -- units every -- hours * Correctional Insulin: Novolog Correction per scale ACHS Goal Range: Low 140 mg/dL - High 180 mg/dL Correction Factor: 20 mg/dL/unit * Prandial insulin: Per carb ratio of 1 unit per -- grams CHO consumed * Oral Agents: None currently (Januvia on hold) Outpatient Anti-Diabetic Meds Januvia 100mg PO daily Assessment & Plan ASSESSMENT: 12/04/17 * BSGs have ranged 107-165 over the last 24 hours * Patient had been NPO during that time frame and these were mostly fasting blood sugars, however D5-Normosol R was initiated overnight * No basal insulin is on board - however fasting BSGs acceptable * Dextrose containing IVF's discontinued this AM and patient is now ordered clears * She was well controlled w/ Januvia monotherapy - There is no indication she requires basal insulin at this time - continue to monitor fasting BSGs * She may require a carb ratio when eating well - will add small prandial insulin dose today while Januvia on hold PLAN FOR INPATIENT GLYCEMIC CONTROL: * No basal insulin at this time * Changing correction factor to 25 mg/dl/unit * Changing carb ratio to 1 unit per 15 grams CHO consumed * Changing goal range to Low 120 mg/dL - High 160 mg/dL RECOMMENDATIONS FOR DISCHARGE: * Resume outpt Januvia regimen * Please note that the plan above was derived based on current level of insulin resistance and hospital stress. These recommendations are appropriate for inpatient admission only. Plan of care upon discharge will need to be reassessed to avoid potential outpatient hypo/hyperglycemia. Thank you.
--- NOTE | 2017-12-04 12:04 | Clinical Documentation Query ---
CLINICAL DOCUMENTATION QUERY Dr. SOFIA, In your clinical opinion is this patient being managed for: ( x ) Acute kidney failure ( ) Not Agree ( ) Other explanation of clinical findings (Please Explain) ( ) Unable to determine (Please Define) ( ) Need to Discuss The medical record reflects the following clinical findings, treatment, and risk factors. Clinical Indicators: 77 yo female presenting with GI bleed/hemorrhagic shock. Initial Cr 1.5 and has trended down to Cr 0.92. Treatment: IV fluids, 6 U PRBC, monitor PRP's and H/H, ICU monitoring Risk Factors: age, GI bleed/hemorrhagic shock, A fib, CKD stage III, DM, hx HTN, CAD, chronic diastolic CHF Please clarify and document your clinical opinion in the progress notes and discharge summary. Terms such as "probable", "suspected", "likely", "questionable", "possible", or "still to be ruled out" are acceptable. IF IN AGREEMENT, YOU MUST DOCUMENT ABOVE DIAGNOSTIC STATEMENT IN DAILY PROGRESS NOTES AND DISCHARGE SUMMARY. This document is not part of the patient's record. Thank You, Pau Huerta RN [phone]
[2017-12-04 14:15] LABS: HEMATOCRIT 23.1 % (37-47); HEMOGLOBIN 7.9 g/dL (12.0-16.0)
[2017-12-04] MEDS ORDERED: POTASSIUM CHLORIDE 20 MEQ TABCR PO STA (14:38)
[2017-12-04] MEDS ORDERED: NITROFURANTOIN MONOHYDRATE 100 MG CAP PO STA (14:38)
[2017-12-04] MEDS ORDERED: FUROSEMIDE 40 MG TAB PO ONE (14:45)
[2017-12-04] MEDS: ACETAMINOPHEN 500 MG TAB PO SCH ×2 (16:20→19:56)
--- NOTE | 2017-12-04 16:32 | Gastroenterology Progress Note ---
Progress Note Date of Service: Dec 04, 2017 Subjective Pt evaluation today including: conversation w/ patient, physical exam, chart review, lab review, review of studies, review of inpatient medication list Ms. Dia is a 77 year old female patient of TITO Robertson at [facility] who has a hx of CAD/CHF, bovine aortic valve replacement, recently started on coumadin for A-fib, who was brought to the ED for bright red blood per rectum. EGD on 12/03/17 with hiatal hernia. Colonoscopy with diverticulosis. Bleeding presumed to be diverticular. Hb was 7.6 on arrival 12/02. Today Hb 7.9. She received a total of 6 units of RBC this admission. No BM since prior to colonoscopy and latter BMs were brown indicating likely end to bleeding. Review of Systems Constitutional: No fever Respiratory: No cough Cardiac: No chest pain Abdomen: + see HPI, + GI bleeding (no gross bleeding today), No pain, No nausea , No vomiting, No diarrhea, No constipation Musculoskeletal: No joint pain Female : No dysuria Neuro: No memory loss Psych: No depression symptoms Heme: No abnormal bleeding/bruising Endo: No fatigue Skin: No rash Medications Current Inpatient Medications Medications (Trade) Dose Ordered Sig/Trixie Route Start Time Stop Time Status Last Admin Dose Admin Ioversol (Optiray 320) 125 ml UD PRN IV 12/02/17 12:15 12/06/17 12:14 Acetaminophen (Tylenol Tab) 650 mg Q4H PRN PO 12/02/17 14:15 01/01/18 14:14 Future Hold 12/04/17 07:51 650 MG Levalbuterol (Xopenex 1.25MG/ 3ML Neb) 1.25 mg Q2H PRN INH 12/02/17 14:15 01/01/18 14:14 Al Hydrox/Mg Hydrox/Simethicone (Maalox Max Susp) 15 ml Q4H PRN PO 12/02/17 14:15 01/01/18 14:14 Ondansetron HCl (Zofran Inj) 4 mg Q6H PRN IV 12/02/17 14:15 01/01/18 14:14 Glucose (Glucose 40% Gel) 15-30 GRAMS 15 GRAMS... UD PRN PO 12/02/17 14:15 01/01/18 14:14 Glucose (Glucose Chew Tab) 4-8 Tablets 4 Tabl... UD PRN PO 12/02/17 14:15 01/01/18 14:14 Dextrose (Dextrose 50% 50ML Syringe) 25-50ML OF 50% DW IV FOR... UD PRN IV 12/02/17 14:15 01/01/18 14:14 Glucagon (Glucagon Inj) 1 mg UD PRN SQ 12/02/17 14:15 01/01/18 14:14 Carvedilol (Coreg Tab) 6.25 mg BID PO 12/02/17 21:00 01/01/18 20:59 12/04/17 07:39 6.25 MG Diltiazem HCl (TIAzac CAP) 180 mg DAILY PO 12/03/17 09:00 01/02/18 08:59 12/04/17 08:32 180 MG Escitalopram Oxalate (Lexapro Tab) 5 mg DAILY PO 12/03/17 09:00 01/02/18 08:59 12/04/17 08:32 5 MG Isosorbide Mononitrate (Imdur Ext Rel Tab) 120 mg BID PO 12/02/17 21:00 01/01/18 20:59 12/04/17 07:39 120 MG Miscellaneous Information (Consult Glycemic Management Pharmacy) 1 ea UD PRN N/A 12/02/17 15:37 01/01/18 15:36 Mometasone Furoate/ Formoterol Fumar (Dulera) 1 ea BID INH 12/02/17 21:00 01/01/18 20:59 12/04/17 07:40 1 EA Pantoprazole Sodium (Protonix Tab) 40 mg QAM PO 12/04/17 09:00 01/03/18 08:59 12/04/17 07:39 40 MG Insulin Aspart (novoLOG ASPART) SLIDING SCALE ACHS SC 12/03/17 21:00 01/02/18 20:59 12/04/17 13:05 4 UNITS Nitrofurantoin Macrocrystals (Macrobid Cap) 100 mg BID PO 12/04/17 21:00 12/09/17 20:59 Acetaminophen (Tylenol Tab) 1,000 mg Q8 PO 12/04/17 15:00 01/03/18 14:59 12/04/17 16:20 1,000 MG Objective Vital Signs Date Time Temp Pulse Resp B/P (MAP) Pulse Ox O2 Delivery O2 Flow Rate FiO2 12/04/17 14:01 36.8 61 20 151/81 (104) 96 Nasal Cannula 2.0 12/04/17 11:25 36.8 60 20 132/73 (92) 95 Nasal Cannula 2.0 12/04/17 11:22 Nasal Cannula 3.0 12/04/17 09:30 54 19 97 12/04/17 09:26 36.8 65 20 130/55 (80) 96 Nasal Cannula 3.0 12/04/17 09:01 55 17 130/55 (80) 97 12/04/17 09:00 52 19 96 12/04/17 08:30 58 20 95 12/04/17 08:01 60 21 181/79 (113) 96 12/04/17 08:00 Nasal Cannula 12/04/17 08:00 60 20 95 12/04/17 07:37 61 22 169/73 (105) 95 12/04/17 07:30 63 21 93 12/04/17 07:30 36.8 65 20 177/69 (105) 91 Nasal Cannula 3.0 12/04/17 07:30 Nasal Cannula 3.0 12/04/17 07:02 71 24 177/69 (105) 89 12/04/17 07:00 79 23 88 12/04/17 06:06 36.8 65 16 169/98 (121) 93 Nasal Cannula 2.0 12/04/17 04:00 36.8 59 21 133/73 (93) 94 Nasal Cannula 2.0 12/04/17 04:00 Nasal Cannula 2.0 40 12/04/17 02:00 36.9 60 19 132/73 (92) 95 Nasal Cannula 2.0 12/04/17 01:47 37.0 60 16 148/75 96 2.0 12/04/17 01:01 36.8 59 18 137/67 96 12/04/17 00:24 37.1 61 19 112/67 96 2.0 12/04/17 00:10 36.8 62 19 122/67 96 12/04/17 00:02 100 Nasal Cannula 2.0 40 12/03/17 23:00 36.6 60 17 124/62 (82) 96 Nasal Cannula 2.0 12/03/17 20:00 Nasal Cannula 2.0 12/03/17 19:31 37.1 59 19 133/56 99 2.0 12/03/17 18:28 36.6 69 20 162/98 99 2.0 12/03/17 17:57 37.0 65 16 162/68 99 12/03/17 17:50 37.0 16 178/70 (106) 100 Nasal Cannula 2.0 12/03/17 17:45 37.0 64 18 178/70 99 2.0 12/03/17 16:31 66 17 154/68 (96) 99 12/03/17 16:30 64 18 99 Physical Exam General Appearance: no apparent distress, + obese Neck: thyroid normal, no JVD Respiratory/Chest: lungs clear Cardiovascular: regular rate, rhythm, no JVD, no murmur Abdomen: non tender, soft Extremities: + pedal edema (trace bilat) Neurologic/Psych: alert, normal mood/affect, oriented x 3 Skin: no jaundice Laboratory Results Last 24 Hours Test 12/03/17 20:31 12/03/17 22:06 12/04/17 04:52 12/04/17 04:56 Bedside Glucose 115 mg/dl 134 mg/dl White Blood Count 7.86 K/uL 7.77 K/uL Red Blood Count 2.39 M/uL 2.60 M/uL Hemoglobin 7.1 g/dL 7.5 g/dL Hematocrit 20.8 % 22.4 % Mean Corpuscular Volume 87.0 fL 86.2 fL Mean Corpuscular Hemoglobin 29.7 pg 28.8 pg Mean Corpuscular Hemoglobin Concent 34.1 g/dl 33.5 g/dl RDW Standard Deviation 56.7 fL 55.6 fL RDW Coefficient of Variation 18.3 % 18.3 % Platelet Count 65 K/uL 69 K/uL Mean Platelet Volume 9.9 fL 10.3 fL Platelet Estimate DECREASED Sodium Level 143 mmol/L 140 mmol/L Potassium Level 2.8 mmol/L 3.3 mmol/L Chloride Level 109 mmol/L 109 mmol/L Carbon Dioxide Level 27 mmol/L 27 mmol/L Anion Gap 7.0 mmol/L 4.0 mmol/L Blood Urea Nitrogen 21 mg/dl 19 mg/dl Creatinine 1.12 mg/dl 0.92 mg/dl Est Creatinine Clear Calc Drug Dose 52.4 ml/min 63.7 ml/min Estimated GFR () 54.5 69.1 Estimated GFR (Non- 47.0 59.6 BUN/Creatinine Ratio 18.8 20.6 Random Glucose 165 mg/dl 115 mg/dl Calcium Level 7.4 mg/dl 7.5 mg/dl Neutrophils (%) (Auto) 56.3 % Lymphocytes (%) (Auto) 23.9 % Monocytes (%) (Auto) 14.0 % Eosinophils (%) (Auto) 4.8 % Basophils (%) (Auto) 0.5 % Neutrophils # (Auto) 4.37 K/uL Lymphocytes # (Auto) 1.86 K/uL Monocytes # (Auto) 1.09 K/uL Eosinophils # (Auto) 0.37 K/uL Basophils # (Auto) 0.04 K/uL Immature Granulocyte % (Auto) 0.5 % Immature Granulocyte # (Auto) 0.04 K/uL Red Blood Cell Morphology Unremarkable Magnesium Level 2.6 mg/dl Test 12/04/17 07:38 12/04/17 10:56 12/04/17 13:50 12/04/17 14:06 Total Creatine Kinase 57 U/L Creatine Kinase MB 1.4 ng/ml Creatine Kinase MB Ratio 2.5 Troponin I 0.084 ng/ml Bedside Glucose 152 mg/dl Urine Color YELLOW Urine Appearance CLEAR Urine pH 5.5 Urine Specific [place] 1.024 Urine Protein NEG Urine Glucose (UA) NEG Urine Ketones TRACE Urine Occult Blood NEG Urine Nitrite POS Urine Bilirubin NEG Urine Urobilinogen NEG Urine Leukocyte Esterase TRACE Urine WBC (Auto) 10-30 /hpf Urine RBC (Auto) 0-4 /hpf Urine Hyaline Casts (Auto) 1-5 /lpf Urine Epithelial Cells (Auto) 20-30 /lpf Urine Bacteria (Auto) 4+ Hemoglobin 7.9 g/dL Hematocrit 23.1 % Test 12/04/17 15:14 Troponin I 0.066 ng/ml Assessment and Plan Ms. Dia is a 77 yr old female with rectal bleeding, w/o further bleeding after colonoscopy which did not show active bleeding. Plan: 1. Would avoid Coumadin if at all possible as she is likely to have recurrently bleeding though would defer that to cardiology. 2. OK for low dose aspirin. 3. Regular diet. 4. GI will sign off. Attending Addm: I have seen, examined and agree with the plan as outlined above by TITO Christy. -No further bleeding -If rebleeds, recommend bleeding scan -Otherwise supportive care
[2017-12-04] MEDS: NITROFURANTOIN MONOHYDRATE 100 MG CAP PO SCH (19:55)
--- NOTE | 2017-12-04 20:25 | Progress Note ---
Subjective Date of Service: Dec 04, 2017. Subjective Pt evaluation today including: conversation w/ patient, physical exam, chart review, lab review, review of inpatient medication list Pain: right shoulder - hurts to lay on it PO Intake: tolerating diet Voiding: requires PRN straight cath has required 4 I/O caths since yesterday for urinary retention has never had any issues with urinary retention denies dysuria has no sensation to void even when there is 500cc on bladder scan denies any dyspnea apparently had chest discomfort last pm; had cxr - pulm edema wears o2 at home chronically right femoral central line has been removed Problem List Medical Problems: (1) Anemia Status: Acute (2) Anticoagulated Status: Acute (3) Foot injury Status: Acute (4) Hypotension Status: Acute (5) Lower GI bleeding Status: Acute (6) Precordial chest pain Status: Acute Review of Systems Constitutional: No fever Respiratory: No cough, No dyspnea at rest Cardiac: No chest pain, No orthopnea Abdomen: No pain, No nausea, No vomiting, No GI bleeding Objective Vital Signs Date Time Temp Pulse Resp B/P (MAP) Pulse Ox O2 Delivery O2 Flow Rate FiO2 12/04/17 16:00 98 Nasal Cannula 2.0 12/04/17 16:00 36.7 71 18 128/56 (80) 98 Nasal Cannula 2.0 12/04/17 14:01 36.8 61 20 151/81 (104) 96 Nasal Cannula 2.0 12/04/17 11:25 36.8 60 20 132/73 (92) 95 Nasal Cannula 2.0 12/04/17 11:22 Nasal Cannula 3.0 12/04/17 09:30 54 19 97 12/04/17 09:26 36.8 65 20 130/55 (80) 96 Nasal Cannula 3.0 12/04/17 09:01 55 17 130/55 (80) 97 12/04/17 09:00 52 19 96 12/04/17 08:30 58 20 95 12/04/17 08:01 60 21 181/79 (113) 96 12/04/17 08:00 Nasal Cannula 12/04/17 08:00 60 20 95 12/04/17 07:37 61 22 169/73 (105) 95 12/04/17 07:30 63 21 93 12/04/17 07:30 36.8 65 20 177/69 (105) 91 Nasal Cannula 3.0 12/04/17 07:30 Nasal Cannula 3.0 12/04/17 07:02 71 24 177/69 (105) 89 12/04/17 07:00 79 23 88 12/04/17 06:06 36.8 65 16 169/98 (121) 93 Nasal Cannula 2.0 12/04/17 04:00 36.8 59 21 133/73 (93) 94 Nasal Cannula 2.0 12/04/17 04:00 Nasal Cannula 2.0 40 12/04/17 02:00 36.9 60 19 132/73 (92) 95 Nasal Cannula 2.0 12/04/17 01:47 37.0 60 16 148/75 96 2.0 12/04/17 01:01 36.8 59 18 137/67 96 12/04/17 00:24 37.1 61 19 112/67 96 2.0 12/04/17 00:10 36.8 62 19 122/67 96 12/04/17 00:02 100 Nasal Cannula 2.0 40 12/03/17 23:00 36.6 60 17 124/62 (82) 96 Nasal Cannula 2.0 Physical Exam General Appearance: no apparent distress ENT: pharynx normal Neck: no JVD Respiratory/Chest: no respiratory distress, no accessory muscle use, + rales ( minimal - bases ) Cardiovascular: regular rate, rhythm, no gallop, no murmur Abdomen: normal bowel sounds, non tender, soft, no organomegaly Extremities: no pedal edema, + pertinent finding (right shoulder - tender over subacromial bursa; tender with passive rotation and abduction) Neurologic/Psychiatric: alert, oriented x 3 Skin: + pallor Laboratory Results Last 24 Hours Test 12/03/17 20:31 12/03/17 22:06 12/04/17 04:52 12/04/17 04:56 Bedside Glucose 115 mg/dl 134 mg/dl White Blood Count 7.86 K/uL 7.77 K/uL Red Blood Count 2.39 M/uL 2.60 M/uL Hemoglobin 7.1 g/dL 7.5 g/dL Hematocrit 20.8 % 22.4 % Mean Corpuscular Volume 87.0 fL 86.2 fL Mean Corpuscular Hemoglobin 29.7 pg 28.8 pg Mean Corpuscular Hemoglobin Concent 34.1 g/dl 33.5 g/dl RDW Standard Deviation 56.7 fL 55.6 fL RDW Coefficient of Variation 18.3 % 18.3 % Platelet Count 65 K/uL 69 K/uL Mean Platelet Volume 9.9 fL 10.3 fL Platelet Estimate DECREASED Sodium Level 143 mmol/L 140 mmol/L Potassium Level 2.8 mmol/L 3.3 mmol/L Chloride Level 109 mmol/L 109 mmol/L Carbon Dioxide Level 27 mmol/L 27 mmol/L Anion Gap 7.0 mmol/L 4.0 mmol/L Blood Urea Nitrogen 21 mg/dl 19 mg/dl Creatinine 1.12 mg/dl 0.92 mg/dl Est Creatinine Clear Calc Drug Dose 52.4 ml/min 63.7 ml/min Estimated GFR () 54.5 69.1 Estimated GFR (Non- 47.0 59.6 BUN/Creatinine Ratio 18.8 20.6 Random Glucose 165 mg/dl 115 mg/dl Calcium Level 7.4 mg/dl 7.5 mg/dl Neutrophils (%) (Auto) 56.3 % Lymphocytes (%) (Auto) 23.9 % Monocytes (%) (Auto) 14.0 % Eosinophils (%) (Auto) 4.8 % Basophils (%) (Auto) 0.5 % Neutrophils # (Auto) 4.37 K/uL Lymphocytes # (Auto) 1.86 K/uL Monocytes # (Auto) 1.09 K/uL Eosinophils # (Auto) 0.37 K/uL Basophils # (Auto) 0.04 K/uL Immature Granulocyte % (Auto) 0.5 % Immature Granulocyte # (Auto) 0.04 K/uL Red Blood Cell Morphology Unremarkable Magnesium Level 2.6 mg/dl Test 12/04/17 07:38 12/04/17 10:56 12/04/17 13:50 12/04/17 14:06 Total Creatine Kinase 57 U/L Creatine Kinase MB 1.4 ng/ml Creatine Kinase MB Ratio 2.5 Troponin I 0.084 ng/ml Bedside Glucose 152 mg/dl Urine Color YELLOW Urine Appearance CLEAR Urine pH 5.5 Urine Specific [place] 1.024 Urine Protein NEG Urine Glucose (UA) NEG Urine Ketones TRACE Urine Occult Blood NEG Urine Nitrite POS Urine Bilirubin NEG Urine Urobilinogen NEG Urine Leukocyte Esterase TRACE Urine WBC (Auto) 10-30 /hpf Urine RBC (Auto) 0-4 /hpf Urine Hyaline Casts (Auto) 1-5 /lpf Urine Epithelial Cells (Auto) 20-30 /lpf Urine Bacteria (Auto) 4+ Hemoglobin 7.9 g/dL Hematocrit 23.1 % Test 12/04/17 15:14 12/04/17 16:21 Troponin I 0.066 ng/ml Bedside Glucose 138 mg/dl Assessment and Plan 77yo female - 1. hemorrhagic shock 2nd to lower GI bleeding - resolved. 2. acute blood loss anemia 2nd to lower GI bleeding - s/p 6 units PRBCSs; Hb stable since. Likely diverticular in origin. EGD w/o source of bleeding. Start ferrous sulfate 325mg BID. 3. GI bleeding - likely lower, from extensive diverticular disease. H/H stable. Bleeding has stopped. 4. 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 5. DVT proph - SCDs; chemical means contraindicated. 6. h/o bovine aortic valve replacement - noted. 7. h/o CAD - no ischemic sx's at this time. Resumed BB. Likely resume aspirin tomorrow if H/H stable. Resumed imdur. 8. chronic diastolic CHF - possible early decompensation/acute exacerbation - resume lasix today. Follow I/O balance, etc. 9. HTN - was in shock day of admission, now resolved; resumed BP meds. 10. LAINE/OHS - O2/CPAP. 11. hypokalemia - replace, repeat BMP am. Mag wnl. 12. T2DM - controlled. 13. prolonged QTc - improving with repletion of low K. 14. paroxysmal a. fib - in NSR; no further coumadin given the extent of her GI bleeding. Her coumadin has been reversed with FFP. 15. FEN - fluids stopped; replete low K; diet as tolerated. 16. right shoulder pain - likely bursitis - voltaren gel qid; tylenol 1gm TID. ok to transfer to tele PT, OT evals Continued [facility] stay due to: multiple IV medications needed Discharge planning: uncertain
[2017-12-04] MEDS: DICLOFENAC SOD 1% GEL 100 GM TUBE EXT SCH (21:06)
[2017-12-04] MEDS: FERROUS SULFATE 325 MG TAB PO SCH (21:06)
[2017-12-04 22:21] LABS: HEMATOCRIT 23.5 % (37-47); HEMOGLOBIN 7.9 g/dL (12.0-16.0)
[2017-12-05] VITALS (8 sets, daily range): BP systolic 135–184; BP diastolic 78–83; PULSE 68–76; TEMP 36.6–37.1; O2SAT 90–97
[2017-12-05 02:55] LABS: HEMOGLOBIN 8.8 g/dL (12.0-16.0); MEAN CELL VOLUME 88.1 fL (80-100); MEAN CORPUSCULAR HEMOGLOBIN 29.8 pg (25-34); MEAN CORPUSCULAR HGB CONC 33.8 g/dl (32-36); NUCLEATED RED BLOOD CELL ABS 0.19 K/uL (0-0); RED CELL DISTRIBUTION WIDTH CV 18.2 % (11.5-14.5); WHITE BLOOD COUNT 9.95 K/uL (4.8-10.8)
[2017-12-05 03:11] LABS: MEAN PLATELET VOLUME 10.7 fL (7.4-10.4); PLATELET COUNT 91 K/uL (130-400)
[2017-12-05 03:16] LABS: CALCIUM 8.1 mg/dl (8.5-10.1); CREATININE 1.15 mg/dl (0.60-1.20); POTASSIUM 3.7 mmol/L (3.5-5.1)
[2017-12-05 03:25] LABS: BASO % 0.3 %; BASO ABS # 0.03 K/uL (0-0.2); EOS % 2.3 %; EOS ABS # 0.23 K/uL (0-0.5); IG# 0.06 K/uL (0.00-0.02); LYMPH % 8.1 %; LYMPH ABS # 0.81 K/uL (1.2-3.4); MONO % 10.1 %; NEUT % 78.6 %; NEUT ABS # 7.82 K/uL (1.4-6.5)
[2017-12-05] MEDS: DICLOFENAC SOD 1% GEL 100 GM TUBE EXT SCH ×3 (06:00→17:24)
[2017-12-05] MEDS: ACETAMINOPHEN 500 MG TAB PO SCH ×3 (06:00→22:00)
--- NOTE | 2017-12-05 07:15 | DIAGNOSTIC IMAGING REPORT ---
SINGLE VIEW CHEST CLINICAL HISTORY: Hypoxia. FINDINGS: An AP, portable, upright chest radiograph is compared to study dated 12/04/2017 and correlated with chest CT dated 11/11/2014. The examination is degraded by portable technique and patient rotation. The patient is status post midline sternotomy. The heart is enlarged and there is atherosclerotic calcification of the thoracic aorta. There is pulmonary vascular congestion with interstitial edema. Asymmetric airspace opacities are seen in the right midlung. Small pleural effusions are identified. No pneumothorax is seen. The skeletal structures are osteopenic. The bony thorax is grossly intact. IMPRESSION: 1. Cardiomegaly with evidence of congestive failure and interstitial edema. 2. Layering pleural effusions. 3. More focal airspace opacities are present in the right midlung. This could represent asymmetric edema versus developing pneumonia. Clinical correlation will be required. Electronically signed by: Ty Martinez M.D. 12/05/2017 7:13 AM Dictated Date/Time: 12/05/2017 7:12 AM
[2017-12-05] MEDS ORDERED: FUROSEMIDE INJ 60 MG in SYRINGE 0 ML IV ONE (07:45)
[2017-12-05] MEDS: NITROGLYCERIN 2% OINTMENT 30GM TUBE EXT SCH ×3 (08:01→20:34)
[2017-12-05] MEDS: MOMETASONE FUROATE-FORMOTEROL (DULERA) 200mcg/5mcg per inh INH SCH ×2 (08:02→20:35)
[2017-12-05] MEDS: CARVEDILOL 6.25 MG TAB PO SCH ×2 (08:02→20:35)
[2017-12-05] MEDS: NITROFURANTOIN MONOHYDRATE 100 MG CAP PO SCH ×2 (08:02→20:37)
[2017-12-05] MEDS: ESCITALOPRAM OXALATE 10 MG TAB PO SCH (08:03)
[2017-12-05] MEDS: DILTIAZEM HCL (TIAzac) 180 MG CAPCR PO SCH (08:04)
[2017-12-05] MEDS: PANTOprazole SOD 40 MG TAB PO SCH (08:04)
[2017-12-05] MEDS: FERROUS SULFATE 325 MG TAB PO SCH ×2 (08:04→18:26)
[2017-12-05] MEDS: ISOSORBIDE MONONITRATE 60 MG TABCR PO SCH ×2 (08:05→20:37)
[2017-12-05] MEDS: POTASSIUM CHLORIDE 20 MEQ TABCR PO SCH ×2 (08:47→20:37)
[2017-12-05] MEDS: INSULIN ASPART 100 UNITS/ML 3 ML PEN SC SCH ×4 (08:47→21:00)
--- NOTE | 2017-12-05 11:06 | Pharmacy Progress Note ---
Pharmacy Glycemic Short Note 2 Date of Service Dec 05, 2017. OUTPATIENT ANTIDIABETIC REGIMEN: * Januvia 100 mg PO daily ASSESSMENT: * Ms Dia is a 77 y/o F with a PMH of CAD, CHF, HTN, and well-controlled type 2 diabetes who presented with a gastrointestinal bleed on 12/02/17. The patient has required minimal insulin since admission. Yesterday she received 7 units of bolus insulin; blood sugars were [phone]. Fasting this morning is 163 mg/dL which is trending upwards. * Start Lantus 10 units SQ daily if blood sugar greater than 140 mg/dL. (half of weight-based stress of 1 dosing). Monitor closely. * For Novolog, carbohydrate ratio added yesterday which appeared to adequate control blood sugars. Unable to evaluate correction factor as has not been utilized. Monitor closely. * Continue to hold Januvia while inpatient. PLAN FOR INPATIENT GLYCEMIC CONTROL: * Hold outpatient oral diabetes medications * Basal insulin * Lantus 10 units SQ daily if blood sugar greater than 140 mg/dL * Bolus insulin * NovoLog per scale ACHS or Q6hrs while NPO * Goal Range: Low 120 mg/dL - High 160 mg/dL * Correction Factor: 25 mg/dL/unit * Nutritional / Prandial insulin per carb ratio of 1 unit per 15 grams CHO consumed PLAN FOR DISCHARGE: * Ms Dia has well controlled diabetes currently. Continue current regimen as an outpatient.
[2017-12-05] MEDS ORDERED: INSULIN GLARGINE SOLOSTAR 100 UNITS/ML 3 ML PEN SC SCH (11:30)
[2017-12-05] MEDS ORDERED: ASPIRIN 81 MG ECTAB PO STA (16:13)
[2017-12-05] MEDS ORDERED: FUROSEMIDE INJ 40 MG in SYRINGE 0 ML IV ONE (18:00)
--- NOTE | 2017-12-06 01:38 | Progress Note ---
Subjective Date of Service: late entry for visit on Dec 05, 2017. Subjective Pt evaluation today including: conversation w/ patient, physical exam, chart review, lab review, review of studies (echo from 08/2017, cxr), review of inpatient medication list Pain: had chest pain in middle of the night, similar to pain when she had stents PO Intake: eating fine without GI intolerance Voiding: mosley catheter in place (placed last pm due to ongoing retention) tele with occasional a. fib runs and PACs overnight had "a terrible night" with significant dyspnea, orthopnea, and episode of cp chest pain was similar to when she had coronary stents placed in the past chest pain now resolved she was given IV lasix with copious diuresis this AM and improvement in her dyspnea denies any BRBPR Problem List Medical Problems: (1) Anemia Status: Acute (2) Anticoagulated Status: Acute (3) Foot injury Status: Acute (4) Hypotension Status: Acute (5) Lower GI bleeding Status: Acute (6) Precordial chest pain Status: Acute Review of Systems Constitutional: No fever, No chills Respiratory: + shortness of breath, + dyspnea on exertion, No cough Cardiac: + chest pain, + orthopnea, + PND Abdomen: No pain, No nausea, No vomiting Objective Vital Signs Date Time Temp Pulse Resp B/P (MAP) Pulse Ox O2 Delivery O2 Flow Rate FiO2 12/06/17 00:00 Nasal Cannula 2.0 CPAP 12/05/17 22:44 36.8 76 19 151/83 (105) 91 CPAP 4.0 12/05/17 22:11 92 6.0 12/05/17 20:00 Nasal Cannula 2.0 CPAP 12/05/17 19:41 36.6 70 20 144/78 (100) 95 Nasal Cannula 2.0 12/05/17 16:00 Nasal Cannula 2.0 CPAP 12/05/17 14:04 71 95 12/05/17 12:00 Nasal Cannula 2.0 CPAP 12/05/17 11:30 36.7 68 20 135/80 (98) 97 12/05/17 08:00 Nasal Cannula 6.0 CPAP 12/05/17 07:33 37.0 74 18 169/79 (109) 90 12/05/17 04:00 CPAP 3.0 12/05/17 03:46 37.1 72 18 184/80 (114) 91 181/78 (112) 12/05/17 02:58 70 92 6.0 Physical Exam General Appearance: no apparent distress, + obese ENT: pharynx normal Neck: + JVD (mild) Respiratory/Chest: no respiratory distress, no accessory muscle use, + decreased breath sounds (bases), + rales (bases) Cardiovascular: regular rate, rhythm, no gallop Abdomen: normal bowel sounds, non tender, soft, no organomegaly Extremities: no pedal edema Neurologic/Psychiatric: alert, oriented x 3 Skin: + pallor Laboratory Results Last 24 Hours Test 12/05/17 02:42 12/05/17 06:32 12/05/17 11:14 12/05/17 15:54 White Blood Count 9.95 K/uL Red Blood Count 2.95 M/uL Hemoglobin 8.8 g/dL Hematocrit 26.0 % Mean Corpuscular Volume 88.1 fL Mean Corpuscular Hemoglobin 29.8 pg Mean Corpuscular Hemoglobin Concent 33.8 g/dl Platelet Count 91 K/uL Mean Platelet Volume 10.7 fL Neutrophils (%) (Auto) 78.6 % Lymphocytes (%) (Auto) 8.1 % Monocytes (%) (Auto) 10.1 % Eosinophils (%) (Auto) 2.3 % Basophils (%) (Auto) 0.3 % Neutrophils # (Auto) 7.82 K/uL Lymphocytes # (Auto) 0.81 K/uL Monocytes # (Auto) 1.00 K/uL Eosinophils # (Auto) 0.23 K/uL Basophils # (Auto) 0.03 K/uL RDW Standard Deviation 57.0 fL RDW Coefficient of Variation 18.2 % Immature Granulocyte % (Auto) 0.6 % Immature Granulocyte # (Auto) 0.06 K/uL Nucleated RBC Absolute Count (auto) 0.19 K/uL Nucleated Red Blood Cells % 1.9 % Red Blood Cell Morphology Unremarkable Venous Blood pH 7.37 Venous Blood Partial Pressure CO2 47 mmHg Venous Blood Partial Pressure O2 27 mmHg Venous Blood HCO3 27 mmol/L Venous Blood Oxygen Saturation < 60.0 % Venous Blood Base Excess 1.4 mEq/L Sodium Level 139 mmol/L Potassium Level 3.7 mmol/L Chloride Level 107 mmol/L Carbon Dioxide Level 26 mmol/L Anion Gap 6.0 mmol/L Blood Urea Nitrogen 17 mg/dl Creatinine 1.15 mg/dl Est Creatinine Clear Calc Drug Dose 51.8 ml/min Estimated GFR () 52.8 Estimated GFR (Non- 45.5 BUN/Creatinine Ratio 14.7 Random Glucose 140 mg/dl Calcium Level 8.1 mg/dl Troponin I 0.039 ng/ml Bedside Glucose 163 mg/dl 170 mg/dl 147 mg/dl Test 12/05/17 20:48 Bedside Glucose 120 mg/dl Assessment and Plan 77yo female - 1. hemorrhagic shock 2nd to lower GI bleeding - resolved. 2. acute blood loss anemia 2nd to lower GI bleeding - s/p 6 units PRBCSs this admission; Hb stable since. Likely diverticular in origin. EGD w/o source of bleeding. Ferrous sulfate 325mg BID. 3. Lower GI bleeding - from extensive diverticular disease. H/H stable. Bleeding has stopped. 4. 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 Indefinite use of PPI and EGD surveillance per GI recommendations. 5. DVT proph - SCDs; chemical means contraindicated. 6. h/o bovine aortic valve replacement 2nd to severe - noted. echo 08/2017 with normal valve function. 7. h/o CAD - had chest pain overnight - similar in quality to past episodes when she needed stents. With that said her EKG is stable and troponins are negative. Resume asa 81mg daily. Cont BB. Cont imdur. Added nitropaste today for quick reduction in BP due to CHF. Will need follow-up with her account developer after d/c. If she continues with pain may need to transfuse additional PRBCs to maintain Hb of 10 or so. 8. acute/chronic diastolic CHF - lasix IV BID today, then reassess tomorrow for additional IV lasix (or resume po lasix at prior home doses). 9. HTN - uncontrolled - see above. 10. LAINE/OHS - O2/CPAP. 11. hypokalemia - resolved. 12. T2DM - controlled. 13. prolonged QTc - improved with K repletion. 14. paroxysmal a. fib - in NSR at this time; no further coumadin given the extent of her GI bleeding. Her coumadin has been reversed with FFP. 15. FEN - lytes stable, eating well. 16. right shoulder pain - likely bursitis - voltaren gel qid; tylenol 1gm TID. 17. chronic hypoxic resp failure on home o2 - stable. 18. morbid obesity - BMI 43 19. acute kidney injury - 2nd to #1, #2, #3 - resolved. Creatinine has normalized. PT, OT recommending rehab cont tele status Continued [facility] stay due to: multiple IV medications needed Discharge planning: uncertain
[2017-12-06] MEDS: NITROGLYCERIN 2% OINTMENT 30GM TUBE EXT SCH ×4 (02:00→19:25)
[2017-12-06 03:55] VITALS: BP 145/78; PULSE 80; TEMP 37.1; O2SAT 92
--- NOTE | 2017-12-06 05:28 | Progress Note ---
Post ICU Progress Note Date & Time Dec 06, 2017 at 05:21 Vital Signs Vital Signs Past 12 Hours Date Time Temp Pulse Resp B/P (MAP) Pulse Ox O2 Delivery O2 Flow Rate FiO2 12/06/17 04:00 Nasal Cannula 2.0 CPAP 12/06/17 03:55 37.1 80 23 145/78 (100) 92 CPAP 4.0 12/06/17 00:00 Nasal Cannula 2.0 CPAP 12/05/17 22:44 36.8 76 19 151/83 (105) 91 CPAP 4.0 12/05/17 22:11 92 6.0 12/05/17 20:00 Nasal Cannula 2.0 CPAP 12/05/17 19:41 36.6 70 20 144/78 (100) 95 Nasal Cannula 2.0 Notes Mental Status: see Notes Nausea / Vomiting: adequately controlled Pain: adequately controlled Airway Patency, RR, SpO2: stable & adequate BP & HR: stable & adequate Patient is a 77-year-old female who was initially admitted to the ICU for presumed lower GI bleed. She had been started on Coumadin in the outpatient setting and shortly after developed bright red bloody stools. Subsequently, the patient had increasing weakness and lethargy prompting visit to the emergency department. On evaluation, she was found to be moderately anemic. In addition, her INR was elevated at 2.1. She was evaluated by gastroenterology and overnight was prepped for colonoscopy. During her stay in the ICU, she received a total of 6 units of PRBCs and 4 units of FFP. Eventually, the patient had stabilization of her H&H. Per review of records, it does appear as though the patient did develop some acute respiratory failure with volume overload. She responded well to aggressive diuresis and use of her BiPAP. She is supposed to wear CPAP at home, however she has declined this previously. On evaluation, the patient is sleeping. BiPAP is in place. She appears to be well rested at this point. Consider outpatient follow up in 1 to 2 weeks with: GI, PCP Repeat imaging needed: CXR Follow up cultures: None at this time. Reviewed progress notes, labs, and inpatient medication list Continue current management Additional recommendations: Will add repeat CXR to assess for improvement of pulmonary edema. Would encourage the patient to wear her BiPAP at night and even consider during naps. She was noted to have some desaturation events in the ICU while on NC alone. Did discuss this with the patient while in the ICU. Thank you for allowing us to participate in the care of this patient. At this time, Critical Care services will sign off on this case. Please feel free to reconsult if we can be of any further assistance. Consults & Procedures Consultants: GI - Dr. Trejo/TITO Pride
[2017-12-06] MEDS: ACETAMINOPHEN 500 MG TAB PO SCH ×3 (05:55→20:30)
[2017-12-06] MEDS: DICLOFENAC SOD 1% GEL 100 GM TUBE EXT SCH ×5 (05:55→23:13)
[2017-12-06 07:05] LABS: BASO % 0.2 %; BASO ABS # 0.02 K/uL (0-0.2); EOS % 1.7 %; EOS ABS # 0.14 K/uL (0-0.5); HEMATOCRIT 25.2 % (37-47); HEMOGLOBIN 8.5 g/dL (12.0-16.0); IG# 0.05 K/uL (0.00-0.02); LYMPH % 9.2 %; LYMPH ABS # 0.75 K/uL (1.2-3.4); MEAN CELL VOLUME 87.5 fL (80-100); MEAN CORPUSCULAR HEMOGLOBIN 29.5 pg (25-34); MEAN CORPUSCULAR HGB CONC 33.7 g/dl (32-36); MEAN PLATELET VOLUME 10.4 fL (7.4-10.4); MONO % 13.2 %; MONO ABS # 1.07 K/uL (0.11-0.59); NEUT % 75.1 %; NEUT ABS # 6.09 K/uL (1.4-6.5); NUCLEATED RED BLOOD CELL ABS 0.14 K/uL (0-0); PLATELET COUNT 126 K/uL (130-400); RED CELL DISTRIBUTION WIDTH CV 17.6 % (11.5-14.5); RED CELL DISTRIBUTION WIDTH SD 54.4 fL (36.4-46.3); WHITE BLOOD COUNT 8.12 K/uL (4.8-10.8)
[2017-12-06 07:30] VITALS: BP 129/66; PULSE 87; TEMP 36.9; O2SAT 92
[2017-12-06 07:32] LABS: CALCIUM 8.3 mg/dl (8.5-10.1); CREATININE 0.99 mg/dl (0.60-1.20); POTASSIUM 3.5 mmol/L (3.5-5.1)
--- NOTE | 2017-12-06 07:33 | DIAGNOSTIC IMAGING REPORT ---
CHEST ONE VIEW PORTABLE CLINICAL HISTORY: 77 years-old Female presenting with pulm edema. TECHNIQUE: Portable upright AP view of the chest was obtained. COMPARISON: 12/05/2017. FINDINGS: Median sternotomy wires with breakage of the middle wire unchanged. Atherosclerosis of aortic arch. Cardiac silhouette mildly enlarged, unchanged. Dilation of the azygos vein and pulmonary vasculature is stable to slightly decreased from prior. Bronchial wall thickening noted. Hazy central and mid to basilar predominant opacities are slightly decreased from prior. Small bilateral pleural effusions. No large pneumothorax. Osseous structures normal. Upper abdomen normal. IMPRESSION: 1. Cardiomegaly with volume overload and mild pulmonary edema, slightly improved from prior. 2. Small bilateral pleural effusions. Electronically signed by: Marcos Alvarez M.D. 12/06/2017 7:32 AM Dictated Date/Time: 12/06/2017 7:30 AM
[2017-12-06] MEDS: INSULIN ASPART 100 UNITS/ML 3 ML PEN SC SCH ×4 (08:01→20:30)
[2017-12-06] MEDS: DILTIAZEM HCL (TIAzac) 180 MG CAPCR PO SCH (08:03)
[2017-12-06] MEDS: NITROFURANTOIN MONOHYDRATE 100 MG CAP PO SCH ×2 (08:03→19:28)
[2017-12-06] MEDS: FERROUS SULFATE 325 MG TAB PO SCH ×2 (08:04→15:25)
[2017-12-06] MEDS: CARVEDILOL 6.25 MG TAB PO SCH ×2 (08:04→19:26)
[2017-12-06] MEDS: PANTOprazole SOD 40 MG TAB PO SCH (08:05)
[2017-12-06] MEDS: INSULIN GLARGINE SOLOSTAR 100 UNITS/ML 3 ML PEN SC SCH (08:05)
[2017-12-06] MEDS: ISOSORBIDE MONONITRATE 60 MG TABCR PO SCH ×2 (08:05→19:26)
[2017-12-06] MEDS: POTASSIUM CHLORIDE 20 MEQ TABCR PO SCH ×2 (08:06→19:27)
[2017-12-06] MEDS: ASPIRIN 81 MG ECTAB PO SCH (08:07)
[2017-12-06] MEDS: MOMETASONE FUROATE-FORMOTEROL (DULERA) 200mcg/5mcg per inh INH SCH ×2 (08:12→19:28)
[2017-12-06] MEDS: ESCITALOPRAM OXALATE 10 MG TAB PO SCH (10:23)
[2017-12-06 11:48] VITALS: BP 155/72; PULSE 66; TEMP 36.8; O2SAT 97
[2017-12-06 16:52] VITALS: BP 108/63; PULSE 62; TEMP 36.5; O2SAT 98
--- NOTE | 2017-12-06 20:09 | Hospitalist Progress Note ---
Hospitalist Progress Note Date of Service Dec 06, 2017. Subjective Pt evaluation today including: conversation w/ patient Pt reports she is eating well, but "they say I'm not" referring to the staff. RN notes report a small emesis after breakfast and did not eat much for lunch. No bloody BMs today. SOB is much improved. Denies any further chest pain. Tele with NSR, PACs, PVCs, rates 60s-80s All Other Systems: Reviewed and Negative Objective Vital Signs Date Time Temp Pulse Resp B/P (MAP) Pulse Ox O2 Delivery O2 Flow Rate FiO2 12/06/17 16:52 36.5 62 18 108/63 (78) 98 Nasal Cannula 3.0 12/06/17 15:05 Nasal Cannula 2.0 CPAP 12/06/17 12:00 Nasal Cannula 2.0 CPAP 12/06/17 11:48 36.8 66 18 155/72 (99) 97 Nasal Cannula 4.0 12/06/17 08:00 Nasal Cannula 2.0 CPAP 12/06/17 07:30 36.9 87 20 129/66 (87) 92 Nasal Cannula 5.0 12/06/17 04:00 Nasal Cannula 2.0 CPAP 12/06/17 03:55 37.1 80 23 145/78 (100) 92 CPAP 4.0 12/06/17 00:00 Nasal Cannula 2.0 CPAP 12/05/17 22:44 36.8 76 19 151/83 (105) 91 CPAP 4.0 12/05/17 22:11 92 6.0 Physical Exam General Appearance: WD/WN, no apparent distress, + obese Eyes: normal inspection, EOMI, sclerae normal ENT: hearing grossly normal Neck: trachea midline Respiratory/Chest: no respiratory distress, no accessory muscle use, + decreased breath sounds (and crackles at bases bilat) Cardiovascular: regular rate, rhythm, no edema, no murmur Abdomen: normal bowel sounds, non tender, soft Extremities: non-tender, normal inspection, no pedal edema, no calf tenderness Neurologic/Psychiatric: alert, normal mood/affect, oriented x 3 Skin: normal color, warm/dry, no rash Laboratory Results Last 24 Hours Test 12/05/17 20:48 12/06/17 06:33 12/06/17 06:53 12/06/17 11:33 Bedside Glucose 120 mg/dl 105 mg/dl 141 mg/dl White Blood Count 8.12 K/uL Red Blood Count 2.88 M/uL Hemoglobin 8.5 g/dL Hematocrit 25.2 % Mean Corpuscular Volume 87.5 fL Mean Corpuscular Hemoglobin 29.5 pg Mean Corpuscular Hemoglobin Concent 33.7 g/dl Platelet Count 126 K/uL Mean Platelet Volume 10.4 fL Neutrophils (%) (Auto) 75.1 % Lymphocytes (%) (Auto) 9.2 % Monocytes (%) (Auto) 13.2 % Eosinophils (%) (Auto) 1.7 % Basophils (%) (Auto) 0.2 % Neutrophils # (Auto) 6.09 K/uL Lymphocytes # (Auto) 0.75 K/uL Monocytes # (Auto) 1.07 K/uL Eosinophils # (Auto) 0.14 K/uL Basophils # (Auto) 0.02 K/uL RDW Standard Deviation 54.4 fL RDW Coefficient of Variation 17.6 % Immature Granulocyte % (Auto) 0.6 % Immature Granulocyte # (Auto) 0.05 K/uL Nucleated RBC Absolute Count (auto) 0.14 K/uL Nucleated Red Blood Cells % 1.8 % Red Blood Cell Morphology Unremarkable Sodium Level 137 mmol/L Potassium Level 3.5 mmol/L Chloride Level 104 mmol/L Carbon Dioxide Level 26 mmol/L Anion Gap 7.0 mmol/L Blood Urea Nitrogen 13 mg/dl Creatinine 0.99 mg/dl Est Creatinine Clear Calc Drug Dose 59.4 ml/min Estimated GFR () 63.3 Estimated GFR (Non- 54.6 BUN/Creatinine Ratio 13.3 Random Glucose 122 mg/dl Calcium Level 8.3 mg/dl Magnesium Level 2.2 mg/dl Test 12/06/17 16:32 Bedside Glucose 107 mg/dl Assessment and Plan This pt is a 77 yo female with a h/o PAF recently started on coumadin, bovine AVR, CAD s/p stents, Chronic diastolic CHF, HTN, LAINE/OHS on CPAP and O2, chronic respiratory failure, DMII, and morbid obesity, who presented with profound BRBPR, acute blood loss anemia, GI bleeding, and hypovolemic shock. Hemorrhagic shock 2nd to lower GI bleeding - resolved. Acute blood loss anemia 2nd to lower GI bleeding - s/p 6 units PRBCSs this admission, hgb myra 5.7, Hb increased and stable since then but remains at 8.5. Likely diverticular in origin. EGD w/o source of bleeding, but with Salazar's esophagus -continue Ferrous sulfate 325mg BID. -follow CBC Lower GI bleeding - from extensive diverticular disease presumed. H/H stable. Bleeding has stopped. 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 echo 08/2017 with normal valve function. CAD/demand ischemia - had chest pain one evening similar in quality to past episodes when she needed stents, occurred in setting of significant volume overload. With that said her EKG is stable and troponins had mild rise prior to development of chest pain and then came down actually after the chest pain. Completely resolved now with treatment of acute CHF as below, diuresis, and nitropaste? Resumed ASA 81mg daily. - Cont BB, imdur dc nitropaste today Will need follow-up with her ballaster after d/c. Acute/chronic diastolic CHF -secondary to massive transfusions, is diuresing but still 4 L positive Was given lasix IV with good response yesterday, but remains volume overloaded on CXR and clinically today - will give additional lasix 40mg IV x 1 now, then should resume home po lasix likely tomorrow -replace KCl -follow PRP HTN - controlled -continue meds as above LAINE/OHS - O2/CPAP. T2DM - controlled. HgbA1C here 6.0% -continue basal bolus insulin Prolonged QTc - improved with K repletion. Paroxysmal a. fib - in NSR at this time but had some A-fib overnight 2 nights ago; no further coumadin given the extent of her GI bleeding. Her coumadin has been reversed with FFP. Right shoulder pain - likely bursitis - voltaren gel qid; tylenol 1gm TID. Chronic hypoxic resp failure on home o2 - stable. Morbid obesity - BMI 43 Acute kidney injury - secondary to hypovolemia, ATN - resolved. Creatinine has normalized. Dispo- PT, OT recommending rehab but pt wants to go home-lives alone but says grandchildren can come stay with her cont tele status May be ready for discharge in 1-2 days FULL CODE
[2017-12-06 20:17] VITALS: BP 112/57; PULSE 61; TEMP 36.5; O2SAT 99
[2017-12-06] MEDS ORDERED: FUROSEMIDE INJ 40 MG in SYRINGE 0 ML IV ONE (20:30)
[2017-12-07] VITALS (8 sets, daily range): BP systolic 119–144; BP diastolic 51–84; PULSE 53–71; TEMP 36.5–36.9; O2SAT 92–99
[2017-12-07] MEDS: DICLOFENAC SOD 1% GEL 100 GM TUBE EXT SCH ×3 (05:13→17:36)
[2017-12-07] MEDS: ACETAMINOPHEN 500 MG TAB PO SCH ×3 (05:13→21:13)
[2017-12-07] MEDS: INSULIN ASPART 100 UNITS/ML 3 ML PEN SC SCH ×4 (07:00→21:13)
[2017-12-07] MEDS: INSULIN GLARGINE SOLOSTAR 100 UNITS/ML 3 ML PEN SC SCH (07:34)
[2017-12-07 07:46] LABS: BASO % 0.2 %; BASO ABS # 0.01 K/uL (0-0.2); EOS % 6.1 %; EOS ABS # 0.33 K/uL (0-0.5); HEMATOCRIT 22.8 % (37-47); HEMOGLOBIN 7.6 g/dL (12.0-16.0); IG# 0.04 K/uL (0.00-0.02); LYMPH % 17.5 %; LYMPH ABS # 0.95 K/uL (1.2-3.4); MEAN CELL VOLUME 90.1 fL (80-100); MEAN CORPUSCULAR HGB CONC 33.3 g/dl (32-36); MONO ABS # 0.76 K/uL (0.11-0.59); NEUT % 61.5 %; NEUT ABS # 3.35 K/uL (1.4-6.5); NUCLEATED RED BLOOD CELL ABS 0.06 K/uL (0-0); PLATELET COUNT 126 K/uL (130-400); RED CELL DISTRIBUTION WIDTH CV 17.7 % (11.5-14.5); RED CELL DISTRIBUTION WIDTH SD 55.8 fL (36.4-46.3); WHITE BLOOD COUNT 5.44 K/uL (4.8-10.8)
[2017-12-07] MEDS: SITAGLIPTIN 100 MG TAB PO SCH (07:56)
[2017-12-07] MEDS: MAGNESIUM OXIDE 400 MG TAB PO SCH (07:56)
[2017-12-07] MEDS: FUROSEMIDE 20 MG TAB PO SCH ×2 (07:56→17:31)
[2017-12-07] MEDS: NITROFURANTOIN MONOHYDRATE 100 MG CAP PO SCH ×2 (07:57→19:27)
[2017-12-07] MEDS: PANTOprazole SOD 40 MG TAB PO SCH (07:57)
[2017-12-07] MEDS: ESCITALOPRAM OXALATE 10 MG TAB PO SCH (07:57)
[2017-12-07] MEDS: CARVEDILOL 6.25 MG TAB PO SCH ×2 (07:57→20:00)
[2017-12-07] MEDS: MULTIVITAMIN TAB PO SCH (07:57)
[2017-12-07] MEDS: ASPIRIN 81 MG ECTAB PO SCH (07:57)
[2017-12-07] MEDS: ISOSORBIDE MONONITRATE 60 MG TABCR PO SCH ×2 (07:58→19:26)
[2017-12-07] MEDS: MOMETASONE FUROATE-FORMOTEROL (DULERA) 200mcg/5mcg per inh INH SCH ×2 (07:58→19:25)
[2017-12-07] MEDS: FERROUS SULFATE 325 MG TAB PO SCH ×2 (07:58→17:32)
[2017-12-07] MEDS: POTASSIUM CHLORIDE 20 MEQ TABCR PO SCH ×2 (07:58→19:27)
[2017-12-07] MEDS: DILTIAZEM HCL (TIAzac) 180 MG CAPCR PO SCH (07:58)
[2017-12-07 08:13] LABS: CALCIUM 8.1 mg/dl (8.5-10.1); CREATININE 1.04 mg/dl (0.60-1.20); POTASSIUM 3.6 mmol/L (3.5-5.1)
[2017-12-07 12:50] LABS: HEMATOCRIT 24.3 % (37-47); HEMOGLOBIN 8.2 g/dL (12.0-16.0); MEAN CELL VOLUME 89.7 fL (80-100); MEAN CORPUSCULAR HEMOGLOBIN 30.3 pg (25-34); MEAN PLATELET VOLUME 10.8 fL (7.4-10.4); NUCLEATED RED BLOOD CELL ABS 0.07 K/uL (0-0); PLATELET COUNT 138 K/uL (130-400); RED CELL DISTRIBUTION WIDTH CV 17.6 % (11.5-14.5); RED CELL DISTRIBUTION WIDTH SD 55.5 fL (36.4-46.3); WHITE BLOOD COUNT 6.02 K/uL (4.8-10.8)
--- NOTE | 2017-12-07 13:00 | Hospitalist Progress Note ---
Hospitalist Progress Note Date of Service Dec 07, 2017. Subjective Pt evaluation today including: conversation w/ patient Had 2 BMs this AM that ACCOUNT ADMINISTRATOR reported were green-brown, no blood or melena. Pt feels well, no CP or OSB, no abd pain, is eating better today, no N/V. Her Hgb did drop down to 7.6 however. Tele with NSR and SB with rates in 50s overnight and 50s-60s otherwise, some PVCs. I obtained her [facility] records from her [facility] and does confirm PAF on a recent ZIO patch which is why she was on coumadin. All Other Systems: Reviewed and Negative Objective Vital Signs Date Time Temp Pulse Resp B/P (MAP) Pulse Ox O2 Delivery O2 Flow Rate FiO2 12/07/17 12:00 Nasal Cannula 2.0 12/07/17 11:15 36.5 55 20 144/84 (104) 99 Nasal Cannula 2.0 12/07/17 08:00 Nasal Cannula 3.0 12/07/17 07:55 36.5 71 22 141/68 (92) 93 Nasal Cannula 3.0 12/07/17 04:16 36.5 59 20 132/68 (89) 94 CPAP 3.0 12/07/17 04:00 CPAP 3.0 12/07/17 00:12 36.5 55 20 135/69 (91) 99 CPAP 4.0 12/07/17 00:00 CPAP 3.0 12/06/17 20:17 36.5 61 20 112/57 (75) 99 Nasal Cannula 2.0 12/06/17 20:00 Nasal Cannula 2.0 CPAP 12/06/17 16:52 36.5 62 18 108/63 (78) 98 Nasal Cannula 3.0 12/06/17 15:05 Nasal Cannula 2.0 CPAP Physical Exam General Appearance: WD/WN, no apparent distress Eyes: normal inspection, sclerae normal ENT: hearing grossly normal Neck: trachea midline Respiratory/Chest: lungs clear, normal breath sounds, no respiratory distress, no accessory muscle use Cardiovascular: regular rate, rhythm, no edema, no gallop, no murmur Abdomen: normal bowel sounds, non tender, soft Extremities: non-tender, normal inspection, no pedal edema, no calf tenderness Neurologic/Psychiatric: alert, normal mood/affect, oriented x 3 Skin: normal color, warm/dry, no rash Laboratory Results Last 24 Hours Test 12/06/17 16:32 12/06/17 20:34 12/07/17 06:35 12/07/17 07:12 Bedside Glucose 107 mg/dl 137 mg/dl 93 mg/dl White Blood Count 5.44 K/uL Red Blood Count 2.53 M/uL Hemoglobin 7.6 g/dL Hematocrit 22.8 % Mean Corpuscular Volume 90.1 fL Mean Corpuscular Hemoglobin 30.0 pg Mean Corpuscular Hemoglobin Concent 33.3 g/dl Platelet Count 126 K/uL Mean Platelet Volume 11.0 fL Neutrophils (%) (Auto) 61.5 % Lymphocytes (%) (Auto) 17.5 % Monocytes (%) (Auto) 14.0 % Eosinophils (%) (Auto) 6.1 % Basophils (%) (Auto) 0.2 % Neutrophils # (Auto) 3.35 K/uL Lymphocytes # (Auto) 0.95 K/uL Monocytes # (Auto) 0.76 K/uL Eosinophils # (Auto) 0.33 K/uL Basophils # (Auto) 0.01 K/uL RDW Standard Deviation 55.8 fL RDW Coefficient of Variation 17.7 % Immature Granulocyte % (Auto) 0.7 % Immature Granulocyte # (Auto) 0.04 K/uL Nucleated RBC Absolute Count (auto) 0.06 K/uL Nucleated Red Blood Cells % 1.2 % Giant Platelets 1+ Prothrombin Time 10.7 SECONDS Prothromb Time International Ratio 1.0 Sodium Level 137 mmol/L Potassium Level 3.6 mmol/L Chloride Level 102 mmol/L Carbon Dioxide Level 28 mmol/L Anion Gap 7.0 mmol/L Blood Urea Nitrogen 15 mg/dl Creatinine 1.04 mg/dl Est Creatinine Clear Calc Drug Dose 56.9 ml/min Estimated GFR () 59.6 Estimated GFR (Non- 51.4 BUN/Creatinine Ratio 14.6 Random Glucose 89 mg/dl Calcium Level 8.1 mg/dl Magnesium Level 2.2 mg/dl Test 12/07/17 11:07 12/07/17 12:44 Bedside Glucose 95 mg/dl Assessment and Plan This pt is a 77 yo female with a h/o PAF recently started on coumadin, bovine AVR, CAD s/p stents, Chronic diastolic CHF, HTN, LAINE/OHS on CPAP and O2, chronic respiratory failure, DMII, and morbid obesity, who presented with profound BRBPR, acute blood loss anemia, GI bleeding, and hypovolemic shock. Hemorrhagic shock 2nd to lower GI bleeding - resolved. Acute blood loss anemia 2nd to lower GI bleeding - s/p 6 units PRBCSs this admission, hgb myra 5.7, Hb increased and previously stable at 8.5, however this AM was down again to 7.6 without any further gross bleeding. Hemodynamically stable Lower GI bleeding - from extensive diverticular disease presumed. Colonoscopy with multiple diverticula throughout colon, some maroon/christina colored liquid in colon lumen but no active bleeding identified Likely diverticular in origin. EGD w/o source of bleeding, but with Salazar's esophagus -continue Ferrous sulfate 325mg BID. -check STAT CBC again now in case of lab error. If remains in the 7s, will transfuse 1 more unit-could be residual bleeding? 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 echo 08/2017 with normal valve function. CAD/demand ischemia - CAD- with h/o MONTSE to RCA for 70% occlusion in 05/24/11 and repeat cath in 2012 with moderate nonobstructive CAD medically managed. She had chest pain one evening similar in quality to past episodes when she needed stents, occurred in setting of significant volume overload. With that said her EKG is stable and troponins had mild rise prior to development of chest pain and then came down actually after the chest pain. Completely resolved now with treatment of acute CHF as below, diuresis, and nitropaste? Had a normal Nuc Stress in 10/2017 Resumed ASA 81mg daily. - Cont Coreg, imdur -is no longer on a statin-listed as Pravachol 80mg on hold since 07/2017 on outpt record--> presumed intolerance dcd nitropaste and no recurrence of pain Will need follow-up with her premium representative after d/c-it should be changed on her outpatient Cardiology record that she is on COREG 6.25mg po bid, rather than metoprolol 12.5mg bid-change made during hospitalization at [facility] 08/2017. Acute/chronic diastolic CHF -secondary to massive transfusions, is continuing to diurese but still 3 L positive Was given lasix IV with good response x 2, improved clinically today - resumed home po lasix 40mg bid today -replace KCl 20 meq bid for now -follow PRP HTN - controlled -continue meds as above LAINE/OHS - O2/CPAP qhs T2DM - controlled. HgbA1C here 6.0% -continue basal bolus insulin Prolonged QTc - improved with K repletion. Paroxysmal a. fib -remains in NSR at this time but had one 4-5 beat run of A- fib overnight 2 nights ago; no further coumadin given the extent of her GI bleeding. Her coumadin has been reversed with FFP. -f/u with Cardiology after discharge Right shoulder pain - likely bursitis - voltaren gel qid; tylenol 1gm TID. Chronic hypoxic resp failure on home o2 - stable. Morbid obesity - BMI 43 Acute kidney injury - secondary to hypovolemia, ATN - resolved. Creatinine has normalized. Dispo- PT, OT recommending rehab but pt wants to go home-lives alone but says grandchildren can come stay with her cont tele status May be ready for discharge tomorrow if Hgb stable FULL CODE
[2017-12-07 13:22] LABS: MEAN CORPUSCULAR HGB CONC 33.7 g/dl (32-36)
[2017-12-08] VITALS (16 sets, daily range): BP systolic 137–191; BP diastolic 60–87; PULSE 50–79; TEMP 36.3–36.8; O2SAT 90–100
[2017-12-08] MEDS: ACETAMINOPHEN 500 MG TAB PO SCH ×3 (05:50→20:45)
[2017-12-08] MEDS: DICLOFENAC SOD 1% GEL 100 GM TUBE EXT SCH ×4 (05:51→17:25)
[2017-12-08 05:58] LABS: BASO % 0.8 %; BASO ABS # 0.04 K/uL (0-0.2); EOS % 5.2 %; EOS ABS # 0.27 K/uL (0-0.5); HEMATOCRIT 22.9 % (37-47); HEMOGLOBIN 7.5 g/dL (12.0-16.0); IG# 0.04 K/uL (0.00-0.02); LYMPH % 15.6 %; LYMPH ABS # 0.81 K/uL (1.2-3.4); MEAN CELL VOLUME 89.5 fL (80-100); MEAN CORPUSCULAR HEMOGLOBIN 29.3 pg (25-34); MEAN CORPUSCULAR HGB CONC 32.8 g/dl (32-36); MEAN PLATELET VOLUME 10.7 fL (7.4-10.4); MONO % 14.9 %; MONO ABS # 0.77 K/uL (0.11-0.59); NEUT % 62.7 %; NEUT ABS # 3.25 K/uL (1.4-6.5); NUCLEATED RED BLOOD CELL ABS 0.05 K/uL (0-0); PLATELET COUNT 139 K/uL (130-400); RED CELL DISTRIBUTION WIDTH CV 17.5 % (11.5-14.5); RED CELL DISTRIBUTION WIDTH SD 54.3 fL (36.4-46.3); WHITE BLOOD COUNT 5.18 K/uL (4.8-10.8)
[2017-12-08 06:34] LABS: CALCIUM 8.1 mg/dl (8.5-10.1); CREATININE 1.09 mg/dl (0.60-1.20); POTASSIUM 3.9 mmol/L (3.5-5.1)
[2017-12-08] MEDS: MOMETASONE FUROATE-FORMOTEROL (DULERA) 200mcg/5mcg per inh INH SCH ×2 (07:32→20:48)
[2017-12-08] MEDS: CARVEDILOL 6.25 MG TAB PO SCH ×2 (07:33→20:47)
[2017-12-08] MEDS: NITROFURANTOIN MONOHYDRATE 100 MG CAP PO SCH ×2 (07:33→20:47)
[2017-12-08] MEDS: MAGNESIUM OXIDE 400 MG TAB PO SCH (07:33)
[2017-12-08] MEDS: DILTIAZEM HCL (TIAzac) 180 MG CAPCR PO SCH (07:33)
[2017-12-08] MEDS: POTASSIUM CHLORIDE 20 MEQ TABCR PO SCH ×2 (07:33→20:46)
[2017-12-08] MEDS: SITAGLIPTIN 100 MG TAB PO SCH (07:34)
[2017-12-08] MEDS: ASPIRIN 81 MG ECTAB PO SCH (07:34)
[2017-12-08] MEDS: ISOSORBIDE MONONITRATE 60 MG TABCR PO SCH ×2 (07:34→20:46)
[2017-12-08] MEDS: PANTOprazole SOD 40 MG TAB PO SCH (07:34)
[2017-12-08] MEDS: ESCITALOPRAM OXALATE 10 MG TAB PO SCH (07:35)
[2017-12-08] MEDS: MULTIVITAMIN TAB PO SCH (07:36)
[2017-12-08] MEDS: INSULIN ASPART 100 UNITS/ML 3 ML PEN SC SCH ×4 (08:28→20:48)
[2017-12-08] MEDS: FERROUS SULFATE 325 MG TAB PO SCH ×2 (08:29→17:25)
[2017-12-08] MEDS: FUROSEMIDE 20 MG TAB PO SCH ×2 (08:29→17:27)
[2017-12-08] MEDS ORDERED: FUROSEMIDE INJ 20 MG in SYRINGE 0 ML IV ONE (09:00)
--- NOTE | 2017-12-08 11:47 | Pharmacy Progress Note ---
Pharmacy Glycemic Sign Off Nt Date of Service Dec 08, 2017. Assessment & Plan ASSESSMENT: * Pharmacy was consulted by Kristian Ward on 12/02/17 for glycemic control and to write orders per [facility] inpatient glycemic control protocol. * Major changes made by pharmacy to antidiabetic regimen include: * Hold outpt Januvia, initiate Basal:bolus insulin regimen * Patient required 3 units of insulin 12/07/17 * BSGs ranging 93 133 mg/dl * Regimen has only required minor adjustments over the past 48hrs to achieve this level of control * Do not anticipate further changes in patient status that would quickly deteriorate glycemic control (i.e. patient to be NPO for upcoming procedure, steroids tapering, starting tube feedings, etc). * Please see recommendations for outpatient antidiabetic regimen below. PLAN FOR INPATIENT GLYCEMIC CONTROL: No changes needed to current regimen. * Pt has required minimal basal insulin. Will d/c Lantus. * Continue bolus insulin: CF: 30. No CR. * Per ADA standards of care: OK to continue inpt Januvia 100mg PO, low propensity of causing hypoglycemia. * Pharmacy is signing off of glycemic consult and will no longer be making adjustments to inpatient regimen. Please feel free to re-consult if needed. Thank you. Outpatiet Recs: Continue pt's home medication
[2017-12-08] MEDS ORDERED: HydrALAZINE HCL 20 MG/ML VIAL IV. PRN (13:00)
--- NOTE | 2017-12-08 13:02 | Hospitalist Progress Note ---
Hospitalist Progress Note Date of Service Dec 08, 2017. Subjective Pt evaluation today including: conversation w/ patient Feeling well, no BMs today, no bleeding. Getting PRBC transfusion currently and BPs have been rising. She denies headache, vision changes, SOB, except her usual with some ambulation, no abd pain, no lightheadedness. She reports she noticed some numbness in her right 4th and 5th fingers since waking up this AM. SHe has been resting her elbows on the table a lot and also sleeps with her arms folded up under her pillow. All Other Systems: Reviewed and Negative Objective Vital Signs Date Time Temp Pulse Resp B/P (MAP) Pulse Ox O2 Delivery O2 Flow Rate FiO2 12/08/17 12:45 36.5 53 18 191/83 100 2.0 12/08/17 12:44 36.5 53 18 191/83 100 2.0 12/08/17 12:00 36.8 54 18 152/68 97 12/08/17 11:23 36.6 54 16 165/78 97 12/08/17 10:45 36.5 56 16 166/87 96 12/08/17 10:28 36.5 60 18 144/74 12/08/17 07:30 74 12/08/17 07:30 Nasal Cannula 2.0 12/08/17 07:00 36.8 58 20 142/60 (87) 94 Room Air 12/08/17 00:00 Nasal Cannula 2.0 12/07/17 23:07 36.9 57 18 124/51 (75) 97 BiPAP 12/07/17 22:26 92 3.0 12/07/17 20:00 98 Nasal Cannula 2.0 12/07/17 16:00 Nasal Cannula 2.0 12/07/17 14:06 36.6 53 18 119/58 (78) 99 Nasal Cannula 2.0 12/07/17 13:53 36.5 55 20 99 2.0 Physical Exam General Appearance: WD/WN, no apparent distress, + obese Eyes: normal inspection, sclerae normal ENT: hearing grossly normal Neck: trachea midline Respiratory/Chest: lungs clear, normal breath sounds, no respiratory distress, no accessory muscle use Cardiovascular: regular rate, rhythm, no edema, no murmur Abdomen: normal bowel sounds, non tender, soft Extremities: non-tender, normal inspection, no pedal edema, no calf tenderness Neurologic/Psychiatric: alert, normal mood/affect, oriented x 3, + pertinent finding (decreased sensation to light touch in right 4th and 5th fingers compared to left, full beauty operator apprentice strength, neg Tinel's sign of the cubital tunnel) Skin: normal color, warm/dry, no rash Laboratory Results Last 24 Hours Test 12/07/17 16:50 12/07/17 20:12 12/08/17 05:31 Bedside Glucose 93 mg/dl 133 mg/dl White Blood Count 5.18 K/uL Red Blood Count 2.56 M/uL Hemoglobin 7.5 g/dL Hematocrit 22.9 % Mean Corpuscular Volume 89.5 fL Mean Corpuscular Hemoglobin 29.3 pg Mean Corpuscular Hemoglobin Concent 32.8 g/dl Platelet Count 139 K/uL Mean Platelet Volume 10.7 fL Neutrophils (%) (Auto) 62.7 % Lymphocytes (%) (Auto) 15.6 % Monocytes (%) (Auto) 14.9 % Eosinophils (%) (Auto) 5.2 % Basophils (%) (Auto) 0.8 % Neutrophils # (Auto) 3.25 K/uL Lymphocytes # (Auto) 0.81 K/uL Monocytes # (Auto) 0.77 K/uL Eosinophils # (Auto) 0.27 K/uL Basophils # (Auto) 0.04 K/uL RDW Standard Deviation 54.3 fL RDW Coefficient of Variation 17.5 % Immature Granulocyte % (Auto) 0.8 % Immature Granulocyte # (Auto) 0.04 K/uL Nucleated RBC Absolute Count (auto) 0.05 K/uL Nucleated Red Blood Cells % 0.9 % Red Blood Cell Morphology Unremarkable Sodium Level 138 mmol/L Potassium Level 3.9 mmol/L Chloride Level 105 mmol/L Carbon Dioxide Level 27 mmol/L Anion Gap 6.0 mmol/L Blood Urea Nitrogen 17 mg/dl Creatinine 1.09 mg/dl Est Creatinine Clear Calc Drug Dose 54.3 ml/min Estimated GFR () 56.3 Estimated GFR (Non- 48.6 BUN/Creatinine Ratio 15.5 Random Glucose 89 mg/dl Calcium Level 8.1 mg/dl Magnesium Level 2.2 mg/dl Assessment and Plan This pt is a 77 yo female with a h/o PAF recently started on coumadin, bovine AVR, CAD s/p stents, Chronic diastolic CHF, HTN, LAINE/OHS on CPAP and O2, chronic respiratory failure, DMII, and morbid obesity, who presented with profound BRBPR, acute blood loss anemia, GI bleeding, and hypovolemic shock. Hemorrhagic shock 2nd to lower GI bleeding - resolved. Acute blood loss anemia 2nd to lower GI bleeding - s/p 6 units PRBCs this admission, hgb myra 5.7, Hb increased and previously stable at 8.5, however this AM was down again to 7.5 without any further gross bleeding. Hemodynamically stable. Could just be equilibrating, but now 2 days in a row with hgb in the 7s, will transfuse 2 units with IV lasix between units. Lower GI bleeding - from extensive diverticular disease presumed. Colonoscopy with multiple diverticula throughout colon, some maroon/christina colored liquid in colon lumen but no active bleeding identified Likely diverticular in origin. EGD w/o source of bleeding, but with Salazar's esophagus -continue Ferrous sulfate 325mg BID. -2 more units PRBCs today as above -remain overnight and repeat CBC in AM or sooner prn acute bleeding -should remain off coumadin or AC indefinitely-discussed with pt -tolerating DM diet Salazar's esophagus - biopsy proven this admission, no dysplasia -Indefinite use of PPI and EGD surveillance per GI recommendations. 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 echo 08/2017 with normal valve function. CAD/demand ischemia - CAD- with h/o MONTSE to RCA for 70% occlusion in 05/24/11 and repeat cath in 2012 with moderate nonobstructive CAD medically managed. She had chest pain one evening similar in quality to past episodes when she needed stents, occurred in setting of significant volume overload. With that said her EKG is stable and troponins had mild rise prior to development of chest pain and then came down actually after the chest pain. Completely resolved now with treatment of acute CHF as below, diuresis, and nitropaste Had a normal Nuc Stress in 10/2017 Resumed ASA 81mg daily. - Cont Coreg, imdur -is no longer on a statin-listed as Pravachol 80mg on hold since 07/2017 on outpt record--> presumed intolerance dcd nitropaste and no recurrence of pain Will need follow-up with her straightener and aligner after d/c-it should be changed on her outpatient Cardiology record that she is on COREG 6.25mg po bid, rather than metoprolol 12.5mg bid-change made during hospitalization at [facility] 08/2017. Acute/chronic diastolic CHF -secondary to massive transfusions, is now asymptomatic but BP rising with PRBC transfusion--> was diuresing but now has stopped and is still 3.4 L positive Was given lasix IV with good response x 2 - continue home po lasix 40mg bid -give extra dose of lasix 20mg IV x 1 now between PRBC units -replace KCl 20 meq bid for now -follow PRP HTN - BPs rising with transfusion as above -continue meds as above and extra lasix LAINE/OHS - continue O2/CPAP qhs T2DM - controlled. HgbA1C here 6.0% -continue basal bolus insulin Prolonged QTc - improved with K repletion. Paroxysmal a. fib -remains in NSR at this time but had one 4-5 beat run of A- fib overnight 1 night; no further coumadin given the extent of her GI bleeding. Her coumadin has been reversed with FFP. -f/u with Cardiology after discharge Right shoulder pain - likely bursitis - voltaren gel qid; tylenol 1gm TID. Chronic hypoxic resp failure on home o2 - stable. Morbid obesity - BMI 43 Acute kidney injury - secondary to hypovolemia, ATN - resolved. Creatinine has normalized. Dispo- PT, OT recommending rehab but pt wants to go home-lives alone but says grandchildren can come stay with her May be ready for discharge tomorrow if Hgb stable Will give Rx for wheeled walker FULL CODE
[2017-12-09] MEDS: DICLOFENAC SOD 1% GEL 100 GM TUBE EXT SCH ×3 (06:00→11:59)
[2017-12-09] MEDS: ACETAMINOPHEN 500 MG TAB PO SCH ×2 (06:28→08:41)
[2017-12-09] MEDS: INSULIN ASPART 100 UNITS/ML 3 ML PEN SC SCH ×2 (06:30→11:00)
[2017-12-09 07:17] VITALS: BP 183/79; PULSE 62; TEMP 36.4; O2SAT 97
[2017-12-09 07:51] LABS: BASO % 0.5 %; BASO ABS # 0.03 K/uL (0-0.2); EOS % 4.4 %; EOS ABS # 0.27 K/uL (0-0.5); HEMATOCRIT 30.6 % (37-47); HEMOGLOBIN 10.2 g/dL (12.0-16.0); IG# 0.03 K/uL (0.00-0.02); LYMPH % 13.2 %; LYMPH ABS # 0.81 K/uL (1.2-3.4); MEAN CELL VOLUME 88.4 fL (80-100); MEAN CORPUSCULAR HEMOGLOBIN 29.5 pg (25-34); MEAN CORPUSCULAR HGB CONC 33.3 g/dl (32-36); MEAN PLATELET VOLUME 10.8 fL (7.4-10.4); MONO % 14.8 %; MONO ABS # 0.91 K/uL (0.11-0.59); NEUT % 66.6 %; NEUT ABS # 4.09 K/uL (1.4-6.5); PLATELET COUNT 177 K/uL (130-400); RED CELL DISTRIBUTION WIDTH CV 17.1 % (11.5-14.5); RED CELL DISTRIBUTION WIDTH SD 53.2 fL (36.4-46.3); WHITE BLOOD COUNT 6.14 K/uL (4.8-10.8)
[2017-12-09 08:17] LABS: CALCIUM 8.5 mg/dl (8.5-10.1); CREATININE 1.17 mg/dl (0.60-1.20); POTASSIUM 3.6 mmol/L (3.5-5.1)
[2017-12-09] MEDS: MOMETASONE FUROATE-FORMOTEROL (DULERA) 200mcg/5mcg per inh INH SCH (08:40)
[2017-12-09] MEDS: CARVEDILOL 6.25 MG TAB PO SCH (08:41)
[2017-12-09] MEDS: MULTIVITAMIN TAB PO SCH (08:41)
[2017-12-09] MEDS: ISOSORBIDE MONONITRATE 60 MG TABCR PO SCH (08:41)
[2017-12-09] MEDS: ASPIRIN 81 MG ECTAB PO SCH (08:41)
[2017-12-09] MEDS: SITAGLIPTIN 100 MG TAB PO SCH (08:42)
[2017-12-09] MEDS: POTASSIUM CHLORIDE 20 MEQ TABCR PO SCH (08:42)
[2017-12-09] MEDS: ESCITALOPRAM OXALATE 10 MG TAB PO SCH (08:42)
[2017-12-09] MEDS: NITROFURANTOIN MONOHYDRATE 100 MG CAP PO SCH (08:43)
[2017-12-09] MEDS: MAGNESIUM OXIDE 400 MG TAB PO SCH (08:43)
[2017-12-09] MEDS: PANTOprazole SOD 40 MG TAB PO SCH (08:43)
[2017-12-09] MEDS: FERROUS SULFATE 325 MG TAB PO SCH (08:43)
[2017-12-09] MEDS: FUROSEMIDE 20 MG TAB PO SCH (08:43)
[2017-12-09] MEDS: DILTIAZEM HCL (TIAzac) 180 MG CAPCR PO SCH (08:45)
[2017-12-09] MEDS ORDERED: MCRK20 PO (12:56)
[2017-12-09] MEDS ORDERED: VLTG EXT (12:56)
[2017-12-09] MEDS ORDERED: FRRS300 PO (12:56)
[2017-12-09] MEDS ORDERED: MCRB100 PO (12:56)
--- NOTE | 2017-12-09 13:00 | Discharge Instructions ---
Discharge Instructions Date of Service Dec 09, 2017. Admission Reason for Admission: Anemia,Hypotension,Lower Gi Bleeding Discharge Discharge Diagnosis / Problem: Acute blood loss anemia, lower GI bleeding Discharge Goals Goal(s): Improve disease control, Diagnostic testing, Therapeutic intervention Activity Recommendations Activity Limitations: as noted below Exercise/Sports Limitations: gradually increase as tolerated Shower/Bathe: no limitations . Instructions / Follow-Up Instructions / Follow-Up You were admitted with gastrointestinal bleeding which was likely from a bleeding diverticulum in your colon. Your Coumadin was stopped and should not be restarted. Please follow-up with your inspector toys as scheduled to discuss this. He also was found to have a urinary tract infection. Please finish out 2 more days of the antibiotic called in to your pharmacy for you. Your potassium levels were slightly low and your started on a potassium pill once daily. Please follow-up with your primary care physician within 1 week as scheduled. Current Hospital Diet Patient's current hospital diet: Diabetes Type 2 Diet Discharge Diet Recommended Diet: Diabetes Type 2 Diet Pending Studies Studies pending at discharge: no Laboratory Results Last 24 Hours Test 12/08/17 16:55 12/08/17 19:51 12/09/17 07:06 12/09/17 07:53 Bedside Glucose 85 mg/dl 134 mg/dl 93 mg/dl White Blood Count 6.14 K/uL Red Blood Count 3.46 M/uL Hemoglobin 10.2 g/dL Hematocrit 30.6 % Mean Corpuscular Volume 88.4 fL Mean Corpuscular Hemoglobin 29.5 pg Mean Corpuscular Hemoglobin Concent 33.3 g/dl Platelet Count 177 K/uL Mean Platelet Volume 10.8 fL Neutrophils (%) (Auto) 66.6 % Lymphocytes (%) (Auto) 13.2 % Monocytes (%) (Auto) 14.8 % Eosinophils (%) (Auto) 4.4 % Basophils (%) (Auto) 0.5 % Neutrophils # (Auto) 4.09 K/uL Lymphocytes # (Auto) 0.81 K/uL Monocytes # (Auto) 0.91 K/uL Eosinophils # (Auto) 0.27 K/uL Basophils # (Auto) 0.03 K/uL RDW Standard Deviation 53.2 fL RDW Coefficient of Variation 17.1 % Immature Granulocyte % (Auto) 0.5 % Immature Granulocyte # (Auto) 0.03 K/uL Sodium Level 138 mmol/L Potassium Level 3.6 mmol/L Chloride Level 102 mmol/L Carbon Dioxide Level 28 mmol/L Anion Gap 8.0 mmol/L Blood Urea Nitrogen 16 mg/dl Creatinine 1.17 mg/dl Est Creatinine Clear Calc Drug Dose 50.3 ml/min Estimated GFR () 51.7 Estimated GFR (Non- 44.6 BUN/Creatinine Ratio 13.5 Random Glucose 91 mg/dl Calcium Level 8.5 mg/dl Magnesium Level 2.2 mg/dl Test 12/09/17 11:33 Bedside Glucose 80 mg/dl Hemoglobin A1c Test 12/03/17 05:19 Range/Units Estimated Average Glucose 126 mg/dl Hemoglobin A1c 6.0 H 4.5-5.6 % Medical Emergencies . Who to Call and When: Medical Emergencies: If at any time you feel your situation is an emergency, please call 911 immediately. . Non-Emergent Contact Non-Emergency issues call your: Primary Care Provider Call Non-Emergent contact if: you have a fever, temperature is above 101, your pain is not controlled, your pain is worsening, your pain is unusual for you, your pain is concerning you, you have any medication questions You have recurrent bleeding, abdominal pain, or any other acute concerns. . . "Provider Documentation" section prepared by Graciela Alegria. .
--- NOTE | 2017-12-09 13:09 | Discharge Summary ---
Discharge Summary Date of Service Dec 09, 2017. Discharge Summary Admission Date: Dec 02, 2017 at 14:22 Discharge Date: Dec 09, 2017 Discharge Disposition: Home with services Principal Diagnosis: Acute blood loss anemia, lower GI bleed Problems/Secondary Diagnoses: Hypovolemic shock PAF recently started on coumadin Bovine AVR with history of severe aortic stenosis CAD with h/o MONTSE to RCA for 70% occlusion in 05/24/11 and repeat cath in 2012 with moderate nonobstructive CAD medically managed Demand ischemia Acute on chronic diastolic CHF HTN LAINE/OHS on CPAP and O2 COPD with chronic respiratory failure DMII, not on long-term insulin, well controlled Morbid obesity Diverticulosis Salazar's esophagus without dysplasia Statin intolerance Hypokalemia Prolonged QTc-resolved Right shoulder pain -secondary to bursitis Acute kidney injury/ATN Ambulatory dysfunction UTI Right-sided cubital tunnel syndrome Major depressive disorder Immunizations: Have You Had Influenza Vaccine: Yes Influenza Vaccine Date: Jul 06, 2013 History of Tetanus Vaccine?: No Tetanus Immunization Date: Sep 04, 2010 History of Pneumococcal: No Pneumococcal Date: January 02, 2008 History of Hepatitis B Vaccine: No Procedures: CT abdomen/pelvis Chest x-ray EGD Colonoscopy Consultations: Gastroenterology Medication Reconciliation New Medications: Diclofenac Sod (Voltaren) 100 Appln/100 Gm Gel 1 APPLN EXT Q6, #1 EA apply to right shoulder Please give her the tube from the hospital Ferrous Sulfate (Ferrous Sulfate) 325 Mg Tab 325 MG PO BID17 for 30 Days, TAB Nitrofurantoin Monohyd Macrocr (Nitrofurantoin Monohydrat) 100 Mg Cap 100 MG PO BID for 2 Days, #4 CAP Potassium Chloride (Klor-Con M20) 20 Meq Tabcr 20 MEQ PO QAM for 30 Days, #30 TAB Continued Medications: Albuterol Hfa (Ventolin Hfa) 200 Puffs/51303 Mcg Aers 2-4 PUFFS INH Q6H PRN for SOB/Wheezing Albuterol Sulf (Proventil 0.083% 2.5MG/3ML) 2.5 Mg/3 Ml Nebu 2.5 MG INH BID Aspirin (Aspirin Ec) 81 Mg Tab 81 MG PO DAILY Carvedilol (Carvedilol) 6.25 Mg Tab 6.25 MG PO BID for 30 Days, #60 TAB Coenzyme Q10 (Ubidecarenone) (Co Q10) 100 Mg Cap 100 MG PO QPM Diltiazem Hcl Ext Rel (Tiazac) 180 Mg Capcr 180 MG PO DAILY Escitalopram Oxalate (Lexapro) 5 Mg Tab 5 MG PO DAILY Famotidine (Pepcid) 40 Mg Tab 40 MG PO DAILY Furosemide (Lasix) 20 Mg Tab 40 MG PO BID Home O2 Therapy (Oxygen) Gas 3 LITERS NA PRN Isosorbide Mononitrate Ext Rel (Imdur Ext Rel) 120 Mg Ertab 120 MG PO BID, TAB Magnesium Oxide (Mag-Ox) 400 Mg Tab 400 MG PO DAILY, 0 Refills Mometasone Furoate-Formoterol (Dulera 100/5 Mcg) Unknown Strength Aer 1 PUFF INH BID Multivitamin (Multivitamin) Tab 1 TAB PO DAILY, TAB Nitroglycerin (Nitrostat) 0.4 Mg Sub 0.4 MG UT PRN, SUB Pantoprazole (Pantoprazole Sodium) 40 Mg Tab 40 MG PO QAM for 30 Days, #30 TAB Sitagliptin Phosphate (Januvia) 100 Mg Tab 100 MG PO DAILY, TAB Discontinued Medications: Warfarin Sod (Jantoven) 5 Mg Tab 5 MG PO DAILY OR OTHERWISE DIRECTED Discharge Exam Patient feeling great. Some dyspnea on exertion which is chronic for her. Denies chest pain, denies abdominal pain. She has not had a bowel movement 2 days and certainly no GI bleeding. Denies headache or lightheadedness. She is ambulating around the room with a walker. Physical Exam General Appearance: WD/WN, no apparent distress, + obese Eyes: normal inspection, sclerae normal ENT: hearing grossly normal Neck: trachea midline Respiratory/Chest: lungs clear, normal breath sounds, no respiratory distress, no accessory muscle use Cardiovascular: regular rate, rhythm, no edema, no murmur Abdomen: normal bowel sounds, non tender, soft Extremities: non-tender, normal inspection, no pedal edema, no calf tenderness Neurologic/Psychiatric: alert, normal mood/affect, oriented x 3, + pertinent finding (decreased sensation to light touch in right 4th and 5th fingers compared to left, 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 strength, neg Tinel's sign of the cubital tunnel) Skin: normal color, warm/dry, no rash Review of Systems: Constitutional: No problem reported Eyes: No problem reported ENT: No problem reported Respiratory: + dyspnea on exertion Cardiovascular: No chest pain Abdomen: No pain, No nausea, No vomiting, No diarrhea, No constipation, No GI bleeding Musculoskeletal: + joint pain Genitourinary - Female: No problem reported Neurologic: + numbness/tingling (Still slightly in the right fourth and fifth fingers) Psychiatric: No problem reported Endocrine: No problem reported Hematologic / Lymphatic: No problem reported Integumentary: No problem reported Hospital Course This pt is a 77 yo female with a h/o PAF recently started on coumadin, bovine AVR, CAD s/p stents, Chronic diastolic CHF, HTN, LAINE/OHS on CPAP and O2, COPD, chronic respiratory failure, DMII, and morbid obesity, who presented with profound BRBPR, acute blood loss anemia, GI bleeding, and hypovolemic shock. Hemorrhagic shock 2nd to lower GI bleeding - resolved. Acute blood loss anemia 2nd to lower GI bleeding - s/p 6 units PRBCs this admission, hgb myra 5.7, Hb increased and previously stable at 8.5, however this AM was down again to 7.5 without any further gross bleeding. Hemodynamically stable. Could just be equilibrating, but now 2 days in a row with hgb in the 7s, will transfuse 2 units with IV lasix between units. Lower GI bleeding - from extensive diverticular disease presumed. Colonoscopy with multiple diverticula throughout colon, some maroon/christina colored liquid in colon lumen but no active bleeding identified Likely diverticular in origin. EGD w/o source of bleeding, but with Salazar's esophagus -continue Ferrous sulfate 325mg BID. -2 more units PRBCs today as above -remain overnight and repeat CBC in AM or sooner prn acute bleeding -should remain off coumadin or AC indefinitely-discussed with pt -tolerating DM diet Salazar's esophagus - biopsy proven this admission, no dysplasia -Indefinite use of PPI and EGD surveillance per GI recommendations. 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 echo 08/2017 with normal valve function. CAD/demand ischemia - CAD- with h/o MONTSE to RCA for 70% occlusion in 05/24/11 and repeat cath in 2012 with moderate nonobstructive CAD medically managed. She had chest pain one evening similar in quality to past episodes when she needed stents, occurred in setting of significant volume overload. With that said her EKG is stable and troponins had mild rise prior to development of chest pain and then came down actually after the chest pain. Completely resolved now with treatment of acute CHF as below, diuresis, and nitropaste Had a normal Nuc Stress in 10/2017 Resumed ASA 81mg daily. - Cont aracelis Bowen -is no longer on a statin-listed as Pravachol 80mg on hold since 07/2017 on outpt record--> presumed intolerance dcd nitropaste and no recurrence of pain Will need follow-up with her industrial automation specialist after d/c-it should be changed on her outpatient Cardiology record that she is on COREG 6.25mg po bid, rather than metoprolol 12.5mg bid-change made during hospitalization at [facility] 08/2017. Acute/chronic diastolic CHF -secondary to massive transfusions, is now asymptomatic but BP rising with PRBC transfusion--> was diuresing but now has stopped and is still 3.4 L positive Was given lasix IV with good response x 2 - continue home po lasix 40mg bid -give extra dose of lasix 20mg IV x 1 now between PRBC units -replace KCl 20 meq bid for now -follow PRP HTN - BPs rising with transfusion as above -continue meds as above and extra lasix LAINE/OHS/COPD not in exacerbation/chronic respiratory failure-continue O2/CPAP qhs -Continue home Dulera, bronchodilators as needed T2DM - controlled. HgbA1C here 6.0% -continue basal bolus insulin Prolonged QTc - improved with K repletion. Paroxysmal a. fib -remains in NSR at this time but had one 4-5 beat run of A- fib overnight 1 night; no further coumadin given the extent of her GI bleeding. Her coumadin has been reversed with FFP. -f/u with Cardiology after discharge Right shoulder pain - likely bursitis - voltaren gel qid; tylenol 1gm TID. Right-sided cubital tunnel syndrome -Avoid resting elbow on hard surfaces Major depressive disorder-stable -Continue Lexapro 5 mg daily Morbid obesity - BMI 43 Acute kidney injury - secondary to hypovolemia, ATN - resolved. Creatinine has normalized. UTI-Macrobid 2 more days Dispo- PT, OT recommending rehab but pt wants to go home-lives alone but says grandchildren can come stay with her May be ready for discharge tomorrow if Hgb stable Will give Rx for wheeled walker FULL CODE Total Time Spent: Greater than 30 minutes This includes examination of the patient, discharge planning, medication reconciliation, and communication with other providers. Discharge Instructions Please refer to the electronic Patient Visit Report (Discharge Instructions) for additional information. Follow-Up With PCP within 1 week With cardiology within 2 weeks Additional Copies To Hilaria Myers C.R.N.P; Toya Rothman PA-C
[2017-12-09 13:47] VITALS: BP 183/79; PULSE 62; TEMP 36.4; O2SAT 97
== END 2017-12-09 16:28 | disposition home health service (06) | DRG 377 ==
LOC: EDBD 11:28 → C.EDB 11:29 → C.MSICU 14:22 → ENRESERV 14:37 → C.MSICU 15:19 → UNDOADMIN 15:19 → ENRESERV 12-04 16:56 → C.2T 12-04 17:34 → ENRESERV 12-07 13:16 → CANRESERV 12-07 13:40 → C.MS4W 12-07 13:51
PROVIDERS: ADMIT Family Medicine; ATTEND Family Medicine
PROC: 06HM33Z Insertion of Infusion Device into Right Femoral Vein, Percutaneous Approach (ICD-10-PCS; principal; 2017-12-02)
PROC: 0DB58ZX Excision of Esophagus, Via Natural or Artificial Opening Endoscopic, Diagnostic (ICD-10-PCS; 2017-12-03 12:30)
PROC: 0DJD8ZZ Inspection of Lower Intestinal Tract, Via Natural or Artificial Opening Endoscopic (ICD-10-PCS; 2017-12-03 12:30)
DX: K57.31 Diverticulosis of large intestine without perforation or abscess with bleeding (principal); R57.8 Other shock; I50.33 Acute on chronic diastolic (congestive) heart failure; N17.0 Acute kidney failure with tubular necrosis; I13.0 Hypertensive heart and chronic kidney disease with heart failure and stage 1 through stage 4 chronic kidney disease, or unspecified chronic kidney disease; I50.32 Chronic diastolic (congestive) heart failure; D62 Acute posthemorrhagic anemia; J96.11 Chronic respiratory failure with hypoxia; Z68.41 Body mass index [BMI] 40.0-44.9, adult; N39.0 Urinary tract infection, site not specified; K22.70 Barrett's esophagus without dysplasia; E11.22 Type 2 diabetes mellitus with diabetic chronic kidney disease; N18.3 Chronic kidney disease, stage 3 (moderate); E78.5 Hyperlipidemia, unspecified; I48.0 Paroxysmal atrial fibrillation; E87.6 Hypokalemia; B96.20 Unspecified Escherichia coli [E. coli] as the cause of diseases classified elsewhere; M25.511 Pain in right shoulder; I25.10 Atherosclerotic heart disease of native coronary artery without angina pectoris; G47.33 Obstructive sleep apnea (adult) (pediatric); E66.01 Morbid (severe) obesity due to excess calories; Z79.01 Long term (current) use of anticoagulants; Z79.82 Long term (current) use of aspirin; Z79.899 Other long term (current) drug therapy; Z86.73 Personal history of transient ischemic attack (TIA), and cerebral infarction without residual deficits; Z88.1 Allergy status to other antibiotic agents; Z88.2 Allergy status to sulfonamides; Z88.5 Allergy status to narcotic agent; Z99.81 Dependence on supplemental oxygen

== ENCOUNTER → 2017-12-13 | Outpatient (CLI) | payer OTHER ==
[~2017-12-13] MED LIST changes: -BENZ-54 PO; -CLOP1TAB54 PO; +DILT-113 PO; +ESCI1TAB6 PO; +FRRS300 PO; +MCRB100 PO; +MCRK20 PO; -POTA10TA32 PO; -POTA20TA16 PO; -PRAV80TA2 PO; +VLTG EXT
[2017-12-13 11:23] LABS: HEMATOCRIT 29.5 % (37-47); HEMOGLOBIN 9.6 g/dL (12.0-16.0); MEAN CELL VOLUME 90.5 fL (80-100); MEAN CORPUSCULAR HEMOGLOBIN 29.4 pg (25-34); MEAN CORPUSCULAR HGB CONC 32.5 g/dl (32-36); MEAN PLATELET VOLUME 10.1 fL (7.4-10.4); PLATELET COUNT 270 K/uL (130-400); RED CELL DISTRIBUTION WIDTH CV 17.1 % (11.5-14.5); RED CELL DISTRIBUTION WIDTH SD 55.4 fL (36.4-46.3); WHITE BLOOD COUNT 6.33 K/uL (4.8-10.8)
--- NOTE | 2017-12-23 20:13 | CODING QUERY NO DIAGNOSIS ---
Valid Physician Order Needed 39 A valid physician order must be submitted in order to properly bill for the service(s) provided, including date of service(s), valid diagnosis, and physician signature. If these tests are done on a recurring basis the original physician order must be submitted in order to code and bill for the service(s) provided. Please fax us the original, signed physician order so that we may expedite billing to [phone] DOS 12/13/17 * CBC W/O DIFF Thank you Michelle [facility] Information Management
== END | disposition home or self-care (01) ==
LOC: C.LABSPEC 10:19
PROVIDERS: ATTEND Family Medicine
DX: K57.33 Diverticulitis of large intestine without perforation or abscess with bleeding (principal)

== ENCOUNTER → 2017-12-23 | Outpatient (CLI) | payer OTHER ==
[2017-12-23 17:23] LABS: BASO % 0.9 %; BASO ABS # 0.05 K/uL (0-0.2); EOS % 4.3 %; EOS ABS # 0.24 K/uL (0-0.5); HEMATOCRIT 33.2 % (37-47); HEMOGLOBIN 10.3 g/dL (12.0-16.0); IG# 0.01 K/uL (0.00-0.02); LYMPH % 26.3 %; LYMPH ABS # 1.47 K/uL (1.2-3.4); MEAN CELL VOLUME 94.6 fL (80-100); MEAN CORPUSCULAR HEMOGLOBIN 29.3 pg (25-34); MEAN PLATELET VOLUME 10.2 fL (7.4-10.4); MONO % 12.7 %; MONO ABS # 0.71 K/uL (0.11-0.59); NEUT % 55.6 %; NEUT ABS # 3.12 K/uL (1.4-6.5); PLATELET COUNT 263 K/uL (130-400); RED CELL DISTRIBUTION WIDTH CV 17.1 % (11.5-14.5); RED CELL DISTRIBUTION WIDTH SD 58.7 fL (36.4-46.3)
[2017-12-23 17:42] LABS: BLOOD UREA NITROGEN 15 mg/dl (7-18); CALCIUM 8.8 mg/dl (8.5-10.1); CARBON DIOXIDE 29 mmol/L (21-32); CREATININE 1.24 mg/dl (0.60-1.20); GLUCOSE 123 mg/dl (70-99); POTASSIUM 4.4 mmol/L (3.5-5.1); SODIUM 137 mmol/L (136-145)
== END | disposition home or self-care (01) ==
LOC: C.LABSPEC 14:46
PROVIDERS: ATTEND Nurse Practitioner
DX: D64.9 Anemia, unspecified (principal); K92.2 Gastrointestinal hemorrhage, unspecified; I48.91 Unspecified atrial fibrillation

== ENCOUNTER → 2018-01-01 | Outpatient (CLI) | payer OTHER ==
--- NOTE | 2018-01-01 15:36 | DIAGNOSTIC IMAGING REPORT ---
TWO VIEW CHEST CLINICAL HISTORY: COPD. Hypoxia. FINDINGS: AP and lateral chest radiographs are compared to study dated 12/06/2017. Correlation is made with chest CT dated 11/11/2014. The AP view is degraded by apical lordotic positioning. The patient is status post midline sternotomy and aortic valve surgery. The heart is enlarged and there is atherosclerotic calcification of the thoracic aorta. The pulmonary vascular is noncongested. Chronic interstitial thickening is similar to previous. Linear atelectasis is present in the left midlung. No airspace consolidation or pleural effusion is identified. There is no pneumothorax. The skeletal structures are osteopenic. The bony thorax appears intact. IMPRESSION: Cardiomegaly with no active disease in the chest. Electronically signed by: Ty Martinez M.D. 01/01/2018 3:35 PM Dictated Date/Time: 01/01/2018 3:34 PM
== END | disposition home or self-care (01) ==
LOC: C.RADPV 14:43
PROVIDERS: ATTEND Nurse Practitioner
DX: J44.9 Chronic obstructive pulmonary disease, unspecified (principal); R53.1 Weakness; I51.7 Cardiomegaly

== ENCOUNTER → 2018-04-08 | Outpatient (CLI) | payer OTHER ==
[~2018-04-08] MED LIST changes: +PANT1TAB4 PO; -PRT40 PO
== END | disposition home or self-care (01) ==
LOC: C.LABPVFM 16:26
PROVIDERS: ATTEND Nurse Practitioner Family
DX: R39.89 Other symptoms and signs involving the genitourinary system (principal)

== ENCOUNTER 2019-01-06 05:47 | Inpatient (IN) ==
[2019-01-06] MEDS ORDERED: fentaNYL citrate 100 MCG/2 ML VIAL IV STA (05:55)
[2019-01-06 06:15] LABS: Basophils # (auto) 0.04 K/uL (0-0.2); Basophils % (auto) 0.6 %; Eosinophils # (auto) 0.29 K/uL (0-0.5); Eosinophils % (auto) 4.2 %; Hematocrit (blood only) 33.9 % (37-47); Hemoglobin 11.1 g/dL (12.0-16.0); Immature Granulocytes # (auto) 0.02 K/uL (0.00-0.02); Immature Granulocytes % (auto) 0.3 %; Lymphocytes # (auto) 1.35 K/uL (1.2-3.4); Lymphocytes % (auto) 19.3 %; Mean Corpuscular Hgb Conc 32.7 g/dL (32-36); Mean Corpuscular Volume 99.4 fL (80-100); Mean Platelet Volume 10.8 fL (7.4-10.4); Monocytes # (auto) 0.72 K/uL (0.11-0.59); Monocytes % (auto) 10.3 %; Neutrophils # (auto) 4.56 K/uL (1.4-6.5); Neutrophils % (auto) 65.3 %; Platelet Count 206 K/uL (130-400); RDW Coefficient of Variation 13.8 % (11.5-14.5); RDW Standard Deviation 49.5 fL (36.4-46.3); Red Blood Count 3.41 M/uL (4.2-5.4); White Blood Count 6.98 K/uL (4.8-10.8)
--- NOTE | 2019-01-06 06:33 | XRay Report ---
XR chest 1V portable HISTORY: 78 years-old Female Chest Pain acute atypical chest pain COMPARISON: Chest radiographs 01/01/2018 TECHNIQUE: Portable AP view of the chest FINDINGS: Cardiac silhouette is enlarged, unchanged. Prior median sternotomy with cardiac valvular prosthesis. Calcification the thoracic aortic arch. Mild chronic scarring/atelectasis about the left lung base an d lateral left midlung. Minimal subsegmental right basilar opacities also noted. No pneumothorax, ple ural effusion, lobar airspace consolidation or overt pulmonary edema. Degenerative changes of the casey ulders and spine. IMPRESSION: 1. Cardiomegaly without acute process. 2. Mild subsegmental bibasilar opacities suggest atelectasis. The above report was generated using voice recognition software. It may contain grammatical, syntax o r spelling errors. Electronically signed by: Tonny Bethea M.D. 01/06/2019 6:32 AM
[2019-01-06 06:34] LABS: Alanine Aminotransferase 15 U/L (12-78); Albumin Level 3.1 gm/dl (3.4-5.0); Aspartate Aminotransferase 13 U/L (15-37); BUN Creatinine Ratio 14.9 (10-20); Blood Urea Nitrogen 17 mg/dl (7-18); Calcium 8.6 mg/dl (8.5-10.1); Carbon Dioxide 29 mmol/L (21-32); Chloride 102 mmol/L (98-107); Creatinine Clr Calc Pharmacy 49.2 ml/min; Est GFR (African American) 53.5; Est GFR (Non-African American) 46.2; Glucose 138 mg/dl (70-99); Potassium 3.5 mmol/L (3.5-5.1); Sodium 137 mmol/L (136-145)
[2019-01-06 06:39] LABS: Albumin Globulin Ratio 0.7 (0.9-2); Alkaline Phosphatase 75 U/L (45-117); Bilirubin,Total 0.3 mg/dl (0.2-1); Globulin 4.7 gm/dl (2.5-4.0); Total Protein 7.8 gm/dl (6.4-8.2); Troponin I < 0.015 ng/ml (0-0.045)
[2019-01-06] MEDS ORDERED: ALUMINUM/MAGNESIUM SUSP 30 ML UDC PO STA (09:06)
[2019-01-06] MEDS ORDERED: FAMOTIDINE 20 MG TAB PO ONE (09:06)
--- NOTE | 2019-01-06 09:37 | History & Physical Report ---
Date of Service January 06, 2019 Assessment & Plan (1) Chest pain: This is a 78-year-old white female who has a significant PMH of CAD with history of MONTSE to RCA in 2000, aortic valve replacement, PAF not on oral anticoagulation secondary to GI bleed, chronic diastolic heart failure, HTN, HLD, pulmonary arterial hypertension, LAINE on CPAP, T2DM, anemia who presents to [facility] secondary to chest pain for several hours. In ED upon arrival patient was noted to be hypertensive 200/89. She received IV fentanyl. Her initial troponin and EKG was WNL. Her H&H was stable at 11.1/33.9, BUN/creatinine 17/1.13, LFT and lipase WNL. Chest x-ray revealed cardiomegaly but no acute abnormality. Given her significant cardiac history she was recommended for admission. Etiology ? Angina from chronic CAD, significantly Elevated Blood pressure causing CP, vs GI etiology including pud/gerd/gastritis/cholecystitis, vs MSK admit under observation to med/surg tele consult cardiology trend troponin x 2 repeat ECG check lipid panel and A1C in a.m. obtain echocardiogram Keep NPO in event stress test is performed; however pt significantly hypertensive Will give A.M. meds except lasix along with nitro paste and monitor BP Ordered maalox x 1 and pepcid for possible GI sx given epigastric pain RUQ US ordered to r/o GI pathology (2) CAD (coronary artery disease): hx of MONTSE to RCA back in 2000 Last cath noted 2012 2 vessel disease LAD 40% stenosis in proximal RCA 40% stenosis and a widely patent mid RCA stent Managed medically with ASA, statin, Coreg, Imdur Chest pain currently 11/08, will order nitro paste (3) CHF (congestive heart failure): pt euvolemic on exam weight 242, she states baseline is 233 continue BB, Lasix monitor BMP daily weights strict I and Os (4) PAF (paroxysmal atrial fibrillation): rate and rhythm controlled on diltiazem and coreg not on OAC given hx of GIB (5) H/O aortic valve replacement: stable obtain echo (6) HTN (hypertension): BP elevated upon arrival She did not take any a.m. meds including Coreg, diltiazem, Lasix BP improved during my visit 153/92 but now 198/91 will give a.m. meds except lasix along with nitro paste 0.5in (7) HLD (hyperlipidemia): Continue statin Check lipid panel in a.m. (8) CKD (chronic kidney disease) stage 3, GFR 30-59 ml/min: BUN/creatinine stable at 17/1.13 Monitor (9) T2DM (type 2 diabetes mellitus): Last A1c 6.4 Hold oral hypoglycemic NovoLog per protocol A1c in a.m. (10) Anemia: H/H stable at 11.1 and 33.9 Monitor CBC Continue iron supplementation (11) GERD (gastroesophageal reflux disease): continue PPI, famotidine prn maalox (12) LAINE on CPAP: Cpap at HS pt also elicits she uses 3L of O2 intermittently at home (13) DVT prophylaxis: SCDs for now There is some concern if patient has +HIT and she had prior elevated antibody in the past Monitor daily if required may need to consider arixtra Disposition: D/C to home when able Follow up: PCP Dr. Myers upon discharge Patient was seen and examined in collaboration with Dr. Gonzalez, please see addendum History of Present Illness Chief Complaint: Chest pain x several hours. Primary Care Provider: TITO Mejia This is a 78-year-old white female who has a significant PMH of CAD with history of MONTSE to RCA in 2000, aortic valve replacement, PAF not on oral anticoagulation secondary to GI bleed, chronic diastolic heart failure, HTN, HLD, pulmonary arterial hypertension, LAINE on CPAP, T2DM, anemia who presents to [facility] secondary to chest pain for several hours. Patient states she was lying in her recliner when she developed substernal chest pain that radiated to right shoulder. Pain was constant, rated 9 out of 10, described as "soreness," improved with emesis x2, made worse with movement. Has had similar symptoms in past but does not recall what transpired at that time. Is unsure if this feels similar to her prior episode of unstable angina back in 2000. Further elicits to dizziness, shortness of breath, nausea. She called EMS and received sublingual nitro spray in route which alleviated symptoms. Currently she feels much improved from prior to arrival. She denies any recent illness fever, chills, sweats, lightheadedness, palpitations, abdominal pain, diarrhea, change in bowel or urinary habits. Her appetite has been okay and she denies any significant weight gain. She feels her baseline weight is about 233 and she weighs herself daily. She denies eating anything out of the ordinary. Denies history of acid reflux so unsure if it feels similar. No recent lifting pushing or pulling. She saw her loading inspector ANDREA on 12/30 secondary to chest pain with occ SL nitro use who recommended nuclear stress test and echo. She didn't take any of her medications or nitro this a.m. She did not eat or drink anything either. In ED upon arrival patient was noted to be hypertensive 200/89. She received IV fentanyl. Her initial troponin and EKG was WNL. Her H&H was stable at 11.1 33. 9, BUN/creatinine 17/1.13, LFT and lipase WNL. Chest x-ray revealed cardiomegaly but no acute abnormality. Given her significant cardiac history she was recommended for admission. Allergies Allergy/AdvReac Type Severity Reaction Status Date / Time Cephalosporins Allergy Mild Unknown Verified 01/06/19 06:49 hydrocodone Allergy Mild Unknown Verified 01/06/19 06:49 neomycin Allergy Mild Unknown Verified 01/06/19 06:49 propoxyphene Allergy Mild Unknown Verified 01/06/19 06:49 doxycycline Allergy Unknown UNKNOWN Verified 01/06/19 06:49 Sulfa (Sulfonamide Allergy Unknown Unknown Verified 01/06/19 06:49 Antibiotics) Home Medications Home Medications Medication Instructions Recorded Confirmed Type albuterol sulfate 2.5 mg INHALATION BID 01/06/19 01/06/19 History albuterol sulfate [Ventolin HFA] 2 - 4 puff INHALATION Q4 PRN 01/06/19 01/06/19 History aspirin 81 mg PO DAILY 01/06/19 01/06/19 History carvedilol 6.25 mg PO BID 01/06/19 01/06/19 History coenzyme Q10 100 mg PO QPM 01/06/19 01/06/19 History diclofenac sodium 1 applic TOPICAL QID 01/06/19 01/06/19 History diltiazem HCl 180 mg PO DAILY 01/06/19 01/06/19 History docusate sodium 100 mg PO HS 01/06/19 01/06/19 History escitalopram oxalate 5 mg PO DAILY 01/06/19 01/06/19 History famotidine 40 mg PO DAILY 01/06/19 01/06/19 History ferrous sulfate 325 mg PO DAILY 01/06/19 01/06/19 History furosemide 40 mg PO BID 01/06/19 01/06/19 History isosorbide mononitrate 120 mg PO BID 01/06/19 01/06/19 History magnesium oxide 400 mg PO DAILY 01/06/19 01/06/19 History mometasone-formoterol [Dulera] 2 puff INHALATION BID 01/06/19 01/06/19 History multivitamin 1 tab PO DAILY 01/06/19 01/06/19 History nitroglycerin [Nitrostat] 0.4 mg SUBLINGUAL UD PRN 01/06/19 01/06/19 History pantoprazole 40 mg PO QAM 01/06/19 01/06/19 History potassium chloride 20 meq PO QAM 01/06/19 01/06/19 History pravastatin 80 mg PO DAILY 01/06/19 01/06/19 History sitagliptin [Januvia] 100 mg PO DAILY 01/06/19 01/06/19 History Past Med/Surg History Medical History GERD (gastroesophageal reflux disease) (Chronic) T2DM (type 2 diabetes mellitus) (Chronic) CAD (coronary artery disease) (Chronic) PAF (paroxysmal atrial fibrillation) (Chronic) CKD (chronic kidney disease) stage 3, GFR 30-59 ml/min (Chronic) Anemia (Chronic) LAINE on CPAP (Chronic) HTN (hypertension) (Chronic) HLD (hyperlipidemia) (Chronic) Diabetes (Chronic) CHF (congestive heart failure) (Chronic 08/04/13) Hx of bronchitis (Resolved) Surgical History History of cardiac cath (Chronic) 08/2013 Last cardiac cath demonstrated 2 vessel nonobstructive disease including mild LAD with 40% stenosis in proximal RCA with 40% stenosis and widely patent mi d RCA stent. Medical management recommended at time. H/O aortic valve replacement (Chronic) History of percutaneous coronary intervention (Chronic) 05/24/2011 cardiac cath demonstrated severe single-vessel CAD with 70% mild RCA stenosis treated with PCI using MONTSE History of colonoscopy with polypectomy (Chronic) History of esophagogastroduodenoscopy (EGD) (Chronic) Hiatal hernia and Salazar's History of partial colectomy (Chronic) Secondary to obstruction No pertinent past surgical history Social History Preferred Language: Irish Communication Ability: Effective Beliefs That Will Affect Care: None Current Living Situation: Alone Other Information That Helps Us Care for You: No Feels Safe at Home: Yes Safety Concerns: Feels Safe At This Time Smoking Status: Never smoker Hx Alcohol Use: No Hx Substance Use: No Review of Systems Review of Systems: As noted per HPI, 10 systems reviewed and negative unless noted above. Physical Exam Physical Exam: Gen: WD/WN, F, elderly, NAD, sitting up in bed, pleasant, conversing easily Head: Normocephalic, Atraumatic Eyes: Sclera normal, no conjunctival injection, PERRLA, EOMI ENT: Gross hearing intact, normal pharynx, mucous membranes moist Neck: supple, no adenopathy, No JVD, no bruit, Resp: Clear to auscultation b/l, no wheeze, rales, rhonchi. 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 buildings painter strength Extremities: No edema bilaterally, obese lower extremities Skin: warm, moist, no rash, negative turgor, cap refill < 2sec Neuro: Alert and oriented x 3, speech normal, good mood/affect, cran nerve 2-12 intact grossly : deferred Results & Data Vital Signs (Past 12 Hours) Vital Signs Temp Pulse Pulse Resp BP BP Pulse Ox 01/06/19 08:19 59 L 20 158/86 H 99 01/06/19 07:10 60 19 172/84 H 97 01/06/19 06:31 60 19 177/98 H 98 01/06/19 06:01 63 22 187/94 H 98 01/06/19 05:56 36.7 C 67 22 200/89 H 97 Laboratory Results Short CBC 01/06/19 Range/Units 06:07 WBC 6.98 (4.8-10.8) K/uL Hgb 11.1 L (12.0-16.0) g/dL Hct 33.9 L (37-47) % Plt Count 206 (130-400) K/uL BMP 01/06/19 06:07 Sodium 137 Potassium 3.5 Chloride 102 Carbon Dioxide 29 BUN 17 Creatinine 1.13 Glucose 138 H Calcium 8.6 Cardiac Enzymes 01/06/19 Range/Units 06:07 Troponin I < 0.015 (0-0.045) ng/ml Liver Function 01/06/19 Range/Units 06:07 Total Bilirubin 0.3 (0.2-1) mg/dl AST 13 L (15-37) U/L ALT 15 (12-78) U/L Alkaline Phosphatase 75 (45-117) U/L Albumin 3.1 L (3.4-5.0) gm/dl Diagnostic Findings CXR: IMPRESSION: 1. Cardiomegaly without acute process. 2. Mild subsegmental bibasilar opacities suggest atelectasis. Medications Administered Discontinued Medications Fentanyl Citrate (Fentanyl Citrate) 50 mcg IV NOW STA Stop: 01/06/19 05:56 Last Admin: 01/06/19 06:12 Dose: 50 mcg Documented by: [id number] ECG Rate (beats per minute): 66 Rhythm: normal sinus Code Status & VTE Plan Code Status Full Code VTE Prophylaxis Plan VTE Prophylaxis will be ordered: Yes Supervising Physician Co-Signing Physician Notes Attending addendum The patient was seen and examined in medical telemetry unit She is a 78-year-old white female who has a significant PMH of CAD with history of MONTSE to RCA in 2000, aortic valve replacement, PAF not on oral anticoagulation secondary to GI bleed, chronic diastolic heart failure, HTN, HLD, pulmonary arterial hypertension, LIANE on CPAP, T2DM, anemia who presents to [facility] secondary to chest pain for several hours. 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
[2019-01-06] MEDS ORDERED: GLUCOSE 10 TABS/TUBE PO PRN (10:10)
[2019-01-06] MEDS ORDERED: POLYETHYLENE (MIRALAX) 17 GM PACK PO PRN (10:10)
[2019-01-06] MEDS ORDERED: CARBOHYDRATES FOR HYPOGLYCEMIA PO PRN (10:10)
[2019-01-06] MEDS ORDERED: ONDANSETRON INJ 2 MG/ML 2 ML VIAL IV PRN (10:10)
[2019-01-06] MEDS ORDERED: NITROGLYCERIN SL 0.4 MG/TAB TAB SL PRN ×2 (10:10)
[2019-01-06] MEDS ORDERED: GLUCAGON FOR INJ 1 MG VIAL SQ PRN (10:10)
[2019-01-06] MEDS ORDERED: DICLOFENAC SOD 1% GEL 100 GM TUBE EXT SCH (10:10)
[2019-01-06] MEDS ORDERED: MAGNESIUM HYDROXIDE SUSP 30 ML UDC PO PRN (10:10)
[2019-01-06] MEDS ORDERED: SITAGLIPTIN PHOSPHATE 100 MG TAB PO SCH (10:10)
[2019-01-06] MEDS ORDERED: ALBUTEROL HFA 8 GM INHALER INH PRN (10:10)
[2019-01-06] MEDS ORDERED: ALUMINUM/MAGNESIUM SUSP 30 ML UDC PO PRN (10:10)
[2019-01-06] MEDS ORDERED: DEXTROSE 50% 50 ML SYRINGE IV PRN (10:10)
[2019-01-06] MEDS ORDERED: GLUCOSE 40% GEL 15 GM TUBE PO PRN (10:10)
[2019-01-06] MEDS ORDERED: NITROGLYCERIN 2% OINTMENT 30GM TUBE EXT ONE (10:16)
[2019-01-06] MEDS: ALBUTEROL 0.083% NEBU SOLN 3 ML VIAL INH SCH ×2 (11:22→19:00)
[2019-01-06] MEDS: ISOSORBIDE MONO EXTENDED REL 60 MG TABCR PO SCH ×2 (11:25→20:45)
--- NOTE | 2019-01-06 11:25 | Ultrasound Report ---
US abdomen limited CLINICAL HISTORY: Epigastric pain COMPARISON STUDY: CT scan performed November 2017 FINDINGS: The pancreas appears normal as visualized. No hepatic masses are visualized. There is no du ctal dilatation. There is suspected mild hepatic steatosis. Common buttock measures 4 mm. Multiple ga llstones are visualized. There is no significant gallbladder wall thickening. There is no pericholecy stic fluid. There is a 15 mm lower pole right renal cyst. There is no hydronephrosis. IMPRESSION: 1. Cholelithiasis. No evidence of ductal dilatation. No evidence of significant gallbladder wall thic kening. Electronically signed by: Wisam Stover M.D. 01/06/2019 11:23 AM
[2019-01-06] MEDS: MULTIVITAMIN TAB PO SCH (11:26)
[2019-01-06] MEDS: POTASSIUM CHLORIDE 20 MEQ TABCR PO SCH (11:26)
[2019-01-06] MEDS: ASPIRIN 81 MG ECTAB PO SCH (11:26)
[2019-01-06] MEDS: PRAVASTATIN SOD 40 MG TAB PO SCH (11:27)
[2019-01-06] MEDS: PANTOprazole 40 MG TAB PO SCH (11:27)
[2019-01-06] MEDS: MAGNESIUM OXIDE 400 MG TAB PO SCH (11:27)
[2019-01-06] MEDS: dilTIAZem HCL 180 MG CAPCR PO SCH (11:27)
[2019-01-06] MEDS: ESCITALOPRAM OXALATE 10 MG TAB PO SCH (11:28)
[2019-01-06] MEDS: CARVEDILOL 6.25 MG TAB PO SCH ×2 (11:28→20:45)
[2019-01-06] MEDS: FERROUS SULFATE 325 MG TAB PO SCH (11:28)
[2019-01-06] MEDS: FUROSEMIDE 20 MG TAB PO SCH ×2 (11:34→17:12)
[2019-01-06] MEDS: INSULIN ASPART 100 UNITS/ML 3 ML PEN SC SCH ×3 (12:46→20:45)
[2019-01-06] MEDS ORDERED: FAMOTIDINE 20 MG TAB PO SCH (13:00)
--- NOTE | 2019-01-06 13:01 | Cardiology Consultation ---
Date of Consultation January 06, 2019 Assessment & Plan (1) Substernal chest pain: Patient with several weeks of waxing and waning chest discomfort. Troponin negative x2. EKG nonischemic today. She was hypertensive on presentation. She received her home blood pressure medications this morning at about 11:00. At 1122 her blood pressure still elevated at 198/98. After taking her home medications, her blood pressure had recently been rechecked and it was 142/55. I reviewed her recent outpatient blood pressure readings and they have been relatively well controlled including measurement on 12/30/2018 at 138/82, measurement on 11/11/2018 and 136/64, in May 2018, 118/70. Resting echocardiogram was reviewed and revealed stable prosthetic valve indices and normal LVEF without wall motion abnormal these. We will continue to observe the patient. She will be n.p.o. after midnight tomorrow for planned further ischemic work-up. History of Present Illness Attending Physician: Ramona Gonzalez MD History of Present Illness Marta Dia is a 78 year old female seen in cardiology consultation per the request of Nya Theodore PA-C of the [facility] service for the evaluation of chest pain. The patient's most recent outpatient cardiology visit had been a week ago on 12/30/2018 with Edilberto Rothman PA-C of our practice having been seen 6 weeks prior to that also. At that time she described intermittent chest tightness occurring at rest and with exertion such as daily activities of living. A pharmacologic nuclear stress test had tentatively been scheduled as an outpatient to be performed later this month. In the meantime, she presented with feelings of generalized illness and dizziness as well as chest pressure that occurred with minimal exertion and rest this morning. EKG performed on arrival to the emergency room at 553 revealed normal sinus rhythm at 66 bpm. Troponin has been negative x2 thus far. Past Cardiac History: Moderate atherosclerotic cardiovascular disease by cardiac catheterization in January,. Subsequent minimally invasive aortic valve replacement utilizing a 21 mm Jimbo-Abreu bioprosthesis for aortic valve stenosis, June 2008 She was noted to have a weakly positive heparin antibody post aortic valve replacement surgery. Cardiac catheterization took place in 2010 with single vessel CAD including a 70% mid RCA stenosis that was treated with a drug-eluting stent and nonobstructive disease elsewhere. Cardiac catheterization September 2012, [facility], Dr Vargas, with findings of two- vessel nonobstructive disease including 40% mid LAD and 40% proximal RCA, widely patent previously placed mid RCA stent. Diagnosis of paroxysmal atrial fibrillation in 2018. -Initially started on anticoagulation but developed significant gastrointestinal bleeding with resultant hospitalization for hypovolemic shock and acute blood loss anemia. Coumadin was therefore discontinued she underwent EGD without source of bleeding found. She underwent colonoscopy with significant diverticuli throughout the colon likely contributing to her gastrointestinal blood loss. Ultimately she had required 8 units of packed red blood cells during that admission. Other history includes diabetes, obstructive sleep apnea for which she is on CPAP, underlying lung disease for which she has followed with pulmonology, hypertension, dyslipidemia, small bowel obstruction. Allergies Allergy/AdvReac Type Severity Reaction Status Date / Time Cephalosporins Allergy Mild Unknown Verified 01/06/19 06:49 hydrocodone Allergy Mild Unknown Verified 01/06/19 06:49 neomycin Allergy Mild Unknown Verified 01/06/19 06:49 propoxyphene Allergy Mild Unknown Verified 01/06/19 06:49 doxycycline Allergy Unknown UNKNOWN Verified 01/06/19 06:49 Sulfa (Sulfonamide Allergy Unknown Unknown Verified 01/06/19 06:49 Antibiotics) Home Medications Home Medications Medication Instructions Recorded Confirmed Type albuterol sulfate 2.5 mg INHALATION BID 01/06/19 01/06/19 History albuterol sulfate [Ventolin HFA] 2 - 4 puff INHALATION Q4 PRN 01/06/19 01/06/19 History aspirin 81 mg PO DAILY 01/06/19 01/06/19 History carvedilol 6.25 mg PO BID 01/06/19 01/06/19 History coenzyme Q10 100 mg PO QPM 01/06/19 01/06/19 History diclofenac sodium 1 applic TOPICAL QID 01/06/19 01/06/19 History diltiazem HCl 180 mg PO DAILY 01/06/19 01/06/19 History docusate sodium 100 mg PO HS 01/06/19 01/06/19 History escitalopram oxalate 5 mg PO DAILY 01/06/19 01/06/19 History famotidine 40 mg PO DAILY 01/06/19 01/06/19 History ferrous sulfate 325 mg PO DAILY 01/06/19 01/06/19 History furosemide 40 mg PO BID 01/06/19 01/06/19 History isosorbide mononitrate 120 mg PO BID 01/06/19 01/06/19 History magnesium oxide 400 mg PO DAILY 01/06/19 01/06/19 History mometasone-formoterol [Dulera] 2 puff INHALATION BID 01/06/19 01/06/19 History multivitamin 1 tab PO DAILY 01/06/19 01/06/19 History nitroglycerin [Nitrostat] 0.4 mg SUBLINGUAL UD PRN 01/06/19 01/06/19 History pantoprazole 40 mg PO QAM 01/06/19 01/06/19 History potassium chloride 20 meq PO QAM 01/06/19 01/06/19 History pravastatin 80 mg PO DAILY 01/06/19 01/06/19 History sitagliptin [Januvia] 100 mg PO DAILY 01/06/19 01/06/19 History Patient History Medical History GERD (gastroesophageal reflux disease) (Chronic) T2DM (type 2 diabetes mellitus) (Chronic) CAD (coronary artery disease) (Chronic) PAF (paroxysmal atrial fibrillation) (Chronic) CKD (chronic kidney disease) stage 3, GFR 30-59 ml/min (Chronic) Anemia (Chronic) LAINE on CPAP (Chronic) HTN (hypertension) (Chronic) HLD (hyperlipidemia) (Chronic) Diabetes (Chronic) CHF (congestive heart failure) (Chronic 08/04/13) Hx of bronchitis (Resolved) Surgical History History of cardiac cath (Chronic) 08/2013 Last cardiac cath demonstrated 2 vessel nonobstructive disease including mild LAD with 40% stenosis in proximal RCA with 40% stenosis and widely patent mid RCA stent. Medical management recommended at time. H/O aortic valve replacement (Chronic) History of percutaneous coronary intervention (Chronic) 05/24/2011 cardiac cath demonstrated severe single-vessel CAD with 70% mild RCA stenosis treated with PCI using MONTSE History of colonoscopy with polypectomy (Chronic) History of esophagogastroduodenoscopy (EGD) (Chronic) Hiatal hernia and Salazar's History of partial colectomy (Chronic) Secondary to obstruction No pertinent past surgical history Social History Preferred Language: Arabic Communication Ability: Effective Beliefs That Will Affect Care: None Current Living Situation: Alone Other Information That Helps Us Care for You: No Feels Safe at Home: Yes Safety Concerns: Feels Safe At This Time Smoking Status: Never smoker Hx Alcohol Use: No Hx Substance Use: No Physical Exam Physical Exam: General: no acute distress and stated age Eyes: conjunctiva are pink and non-injected, sclera clear Neck: normal jugular venous pulse, no hepatojugular reflux Chest: normal shape and normal respiratory effort Lungs: clear to auscultation and percussion Cardiac Exam: - regular heart sounds, no murmurs, rubs, or gallops, no jugular venous distention Abdomen: abdomen soft, non-tender, no abnormal masses and no hepatosplenomegaly Musculoskeletal: no gait disturbance, no weakness Extremities: no edema and no cyanosis Neuro:awake, coversant, follows commands, no focal motor deficits Psych: appropriate affect and insight. Results & Data Vital Signs (Past 12 Hours) Vital Signs Temp Pulse Pulse Resp BP BP Pulse Ox 01/06/19 11:22 86 18 97 01/06/19 10:09 36.4 C L 62 16 198/91 H 96 01/06/19 09:54 61 20 174/88 H 99 01/06/19 08:19 59 L 20 158/86 H 99 01/06/19 07:10 60 19 172/84 H 97 01/06/19 06:31 60 19 177/98 H 98 01/06/19 06:01 63 22 187/94 H 98 01/06/19 05:56 36.7 C 67 22 200/89 H 97
[2019-01-06] MEDS ORDERED: PERFLUTREN LIPID MICROSPHERE (DEFINITY) IV ONE (14:05)
--- NOTE | 2019-01-06 17:35 | Emergency Department Note ---
Entered by Hardeep Swift acting as a scribe for Ifeoma Sanchez DO History of Present Illness General Chief complaint: Chest Pain Stated complaint: chest pain Time Seen by Provider: 01/06/19 05:50 Source: patient History of Present Illness Onset (ago): hour(s) (1.5) Location: chest Pain Consistency: + constant Quality: + other (tightness) Relieved By: + medication (nitroglycerin) Associated symptoms: + nausea/vomiting, + shortness of breath and + other (dizziness) The patient is a 78 y/o female who presents to the ED w/ CC of constant chest tightness beginning 1.5 hours ago. EMS states the patient has a history of an [place] and has nitroglycerin she takes at home for occasional chest pain. They report the patient had an episode of her occasional chest pain at 0000 that resolved with nitroglycerin. EMS notes this chest pain was different during this second episode. They state the patient was given nitroglycerin without complete relief. EMS reports the patient vomited on the onset of this episode. They note the patient was also complaining of dizziness and shortness of breath that is somewhat normal. EMS states the patient was given 324mg of aspirin. The patient states she did receive nitro from EMS but it did not help as much as it normally does. She reports she was concerned about her second onset of chest tightness because it was different than her occasional chest pain. The patient notes she was nauseous and vomited a few times. She states she does not feel nauseous anymore. The patient reports it is not abnormal to have chest pain occasionally. She notes her last episode was over a week ago prior to tonight's episodes. The patient states her PCP is from [facility]. Home Medications Home Medications Medication Instructions Recorded Confirmed Type albuterol sulfate 2.5 mg INHALATION BID 01/06/19 01/06/19 History albuterol sulfate [Ventolin HFA] 2 - 4 puff INHALATION Q4 PRN 01/06/19 01/06/19 History aspirin 81 mg PO DAILY 01/06/19 01/06/19 History carvedilol 6.25 mg PO BID 01/06/19 01/06/19 History coenzyme Q10 100 mg PO QPM 01/06/19 01/06/19 History diclofenac sodium 1 applic TOPICAL QID 01/06/19 01/06/19 History diltiazem HCl 180 mg PO DAILY 01/06/19 01/06/19 History docusate sodium 100 mg PO HS 01/06/19 01/06/19 History escitalopram oxalate 5 mg PO DAILY 01/06/19 01/06/19 History famotidine 40 mg PO DAILY 01/06/19 01/06/19 History ferrous sulfate 325 mg PO DAILY 01/06/19 01/06/19 History furosemide 40 mg PO BID 01/06/19 01/06/19 History isosorbide mononitrate 120 mg PO BID 01/06/19 01/06/19 History magnesium oxide 400 mg PO DAILY 01/06/19 01/06/19 History mometasone-formoterol [Dulera] 2 puff INHALATION BID 01/06/19 01/06/19 History multivitamin 1 tab PO DAILY 01/06/19 01/06/19 History nitroglycerin [Nitrostat] 0.4 mg SUBLINGUAL UD PRN 01/06/19 01/06/19 History pantoprazole 40 mg PO QAM 01/06/19 01/06/19 History potassium chloride 20 meq PO QAM 01/06/19 01/06/19 History pravastatin 80 mg PO DAILY 01/06/19 01/06/19 History sitagliptin [Januvia] 100 mg PO DAILY 01/06/19 01/06/19 History Allergies Allergy/AdvReac Type Severity Reaction Status Date / Time Cephalosporins Allergy Mild Unknown Verified 01/06/19 06:49 hydrocodone Allergy Mild Unknown Verified 01/06/19 06:49 neomycin Allergy Mild Unknown Verified 01/06/19 06:49 propoxyphene Allergy Mild Unknown Verified 01/06/19 06:49 doxycycline Allergy Unknown UNKNOWN Verified 01/06/19 06:49 Sulfa (Sulfonamide Allergy Unknown Unknown Verified 01/06/19 06:49 Antibiotics) Past Med/Surg History Medical History GERD (gastroesophageal reflux disease) (Chronic) T2DM (type 2 diabetes mellitus) (Chronic) CAD (coronary artery disease) (Chronic) PAF (paroxysmal atrial fibrillation) (Chronic) CKD (chronic kidney disease) stage 3, GFR 30-59 ml/min (Chronic) Anemia (Chronic) LAINE on CPAP (Chronic) HTN (hypertension) (Chronic) HLD (hyperlipidemia) (Chronic) Diabetes (Chronic) CHF (congestive heart failure) (Chronic 08/04/13) Hx of bronchitis (Resolved) Surgical History History of cardiac cath (Chronic) 08/2013 Last cardiac cath demonstrated 2 vessel nonobstructive disease including mild LAD with 40% stenosis in proximal RCA with 40% stenosis and widely patent mid RCA stent. Medical management recommended at time. H/O aortic valve replacement (Chronic) History of percutaneous coronary intervention (Chronic) 05/24/2011 cardiac cath demonstrated severe single-vessel CAD with 70% mild RCA stenosis treated with PCI using MONTSE History of colonoscopy with polypectomy (Chronic) History of esophagogastroduodenoscopy (EGD) (Chronic) Hiatal hernia and Salazar's History of partial colectomy (Chronic) Secondary to obstruction No pertinent past surgical history Social History Preferred Language: Uzbek Communication Ability: Effective Beliefs That Will Affect Care: None Current Living Situation: Alone Other Information That Helps Us Care for You: No Feels Safe at Home: Yes Safety Concerns: Feels Safe At This Time Smoking Status: Never smoker Hx Alcohol Use: No Hx Substance Use: No Review of Systems See HPI for pertinent positives & negatives. and A total of 10 systems reviewed and were otherwise negative Physical Exam Vital Signs Vital Signs - 24 hr 01/06/19 05:56 01/06/19 06:01 01/06/19 06:31 Temperature 36.7 C Temperature Source Oral Sepsis Recent Fever Within 48 Hours No Sepsis New/Unexplained Change in Mental Status No Sepsis Action Taken by Nursing No Action Required Pulse Rate 67 63 60 Pulse Rate [Left] Pulse Rate from SpO2 Sensor 63 60 Respiratory Rate 22 22 19 Respiratory Effort / Characteristics Non-Labored Spontaneous Respiratory Depth Normal Respiratory Pattern Regular Blood Pressure 200/89 H 187/94 H 177/98 H Blood Pressure [Left Arm] Blood Pressure [Right Arm] Blood Pressure Mean 126 125 124 Blood Pressure Mean [Left Arm] Blood Pressure Mean [Right Arm] Blood Pressure Position Semi-fowlers Blood Pressure Position [Left Arm] Blood Pressure Position [Right Arm] Pulse Oximetry 97 98 98 Oxygen Delivery Method Nasal Cannula Nasal Cannula Nasal Cannula Oxygen Flow Rate 4 4 4 01/06/19 07:10 01/06/19 07:29 01/06/19 08:19 Temperature Temperature Source Sepsis Recent Fever Within 48 Hours Sepsis New/Unexplained Change in Mental Status Sepsis Action Taken by Nursing Pulse Rate Pulse Rate [Left] 60 59 L Pulse Rate from SpO2 Sensor Respiratory Rate 19 20 Respiratory Effort / Characteristics Spontaneous Non-Labored Spontaneous Spontaneous Respiratory Depth Normal Respiratory Pattern Regular Blood Pressure Blood Pressure [Left Arm] Blood Pressure [Right Arm] 172/84 H 158/86 H Blood Pressure Mean Blood Pressure Mean [Left Arm] Blood Pressure Mean [Right Arm] 113 110 Blood Pressure Position Blood Pressure Position [Left Arm] Blood Pressure Position [Right Arm] Lying Lying Pulse Oximetry 97 99 Oxygen Delivery Method Nasal Cannula Nasal Cannula Nasal Cannula Oxygen Flow Rate 4 4 01/06/19 09:54 01/06/19 10:09 01/06/19 11:22 Temperature 36.4 C L Temperature Source Oral Sepsis Recent Fever Within 48 Hours Sepsis New/Unexplained Change in Mental Status Sepsis Action Taken by Nursing Pulse Rate 61 Pulse Rate [Left] 62 86 Pulse Rate from SpO2 Sensor Respiratory Rate 20 16 18 Respiratory Effort / Characteristics Spontaneous Respiratory Depth Respiratory Pattern Blood Pressure 174/88 H Blood Pressure [Left Arm] Blood Pressure [Right Arm] 198/91 H Blood Pressure Mean Blood Pressure Mean [Left Arm] Blood Pressure Mean [Right Arm] 126 Blood Pressure Position Blood Pressure Position [Left Arm] Blood Pressure Position [Right Arm] Lying Pulse Oximetry 99 96 97 Oxygen Delivery Method Nasal Cannula Room Air Nasal Cannula Oxygen Flow Rate 3 01/06/19 16:08 Temperature 36.5 C Temperature Source Oral Sepsis Recent Fever Within 48 Hours Sepsis New/Unexplained Change in Mental Status Sepsis Action Taken by Nursing Pulse Rate Pulse Rate [Left] 52 L Pulse Rate from SpO2 Sensor Respiratory Rate 20 Respiratory Effort / Characteristics Respiratory Depth Respiratory Pattern Blood Pressure Blood Pressure [Left Arm] 142/65 H Blood Pressure [Right Arm] Blood Pressure Mean Blood Pressure Mean [Left Arm] 90 Blood Pressure Mean [Right Arm] Blood Pressure Position Blood Pressure Position [Left Arm] Lying Blood Pressure Position [Right Arm] Pulse Oximetry 99 Oxygen Delivery Method Nasal Cannula Oxygen Flow Rate 3 HEENT: Head - normocephalic and atraumatic Pupils are equal, round, and reactive to light. Extraocular eye muscles are intact, and sclera are anicteric. Nose - moist nasal mucosa without discharge. Mouth - moist buccal mucosa. Oropharynx is nonerythematous and there is no tonsillar exudate or edema noted. Neck: Supple; no JVD, nuchal rigidity, cervical lymphadenopathy. Heart: Regular rate and rhythm. There is a normal S1 and S2 with no murmurs, clicks, or gallops appreciated. Lungs: Clear to auscultation bilaterally with no wheezes, rales, or rhonchi. Abdomen: Soft, completely nontender, nondistended, with good bowel sounds. There are no palpable pulsatile masses or hepatosplenomegaly. There is no guarding, rigidity, or rebound noted. Extremities: No evidence of cyanosis, clubbing, or edema. There are easily palpable peripheral pulses. Skin: warm and dry with good turgor and no rashes. Course 0551: The patient was evaluated in room B02. A complete history and physical examination were performed. Nursing notes and previous electronic medical records were reviewed. IV lock was established and labs were drawn as above. The patient was observed on the cardiac technician and pulse oximeter. A twelve- lead EKG was obtained as described above. 0555: The patient continued complaint of chest discomfort and I ordered Fentanyl Citrate 50 mcg IV 0626: Upon reevaluation, I discussed findings and results with the patient. She has had mild relief of chest pain with Fentanyl. Nursing staff thought the patient might be mildly confused. I reevaluated her and she was oriented to [facility] place and time. She verbalized agreement of the treatment plan. 0656: I spoke with Dr. Cottrell of the [facility]. The patient will be evaluated for further management and care. Administered Medications Albuterol (Ventolin 0.083% 2.5mg/3ml) 2.5 mg INH BIDR [facility] Stop: 02/05/19 10:09 Last Admin: 01/06/19 11:22 Dose: 2.5 mg Documented by: [id number] Aspirin (Ecotrin Ectab) 81 mg PO DAILY [facility] Stop: 02/05/19 10:09 Last Admin: 01/06/19 11:26 Dose: 81 mg Documented by: [id number] Carvedilol (Coreg) 6.25 mg PO BID [facility] Stop: 02/05/19 10:09 Last Admin: 01/06/19 11:28 Dose: 6.25 mg Documented by: [id number] Diltiazem HCl (Cardizem Cd) 180 mg PO DAILY [facility] Stop: 02/05/19 10:09 Last Admin: 01/06/19 11:27 Dose: 180 mg Documented by: [id number] Escitalopram Oxalate (Lexapro) 5 mg PO DAILY [facility] Stop: 02/05/19 10:09 Last Admin: 01/06/19 11:28 Dose: 5 mg Documented by: [id number] Ferrous Sulfate (Feosol) 325 mg PO DAILY [facility] Stop: 02/05/19 10:09 Last Admin: 01/06/19 11:28 Dose: 325 mg Documented by: [id number] Furosemide (Lasix) 40 mg PO BID17 [facility] Stop: 02/05/19 10:09 Last Admin: 01/06/19 17:12 Dose: 40 mg Documented by: [id number] Admin: 01/06/19 11:34 Dose: Not Given Documented by: [id number] Insulin Aspart (Novolog Flexpen) 0 units SC ACHS [facility] Stop: 02/05/19 11:29 Last Admin: 01/06/19 17:11 Dose: 2 units Documented by: [id number] Cosigned by: [id number] Admin: 01/06/19 12:46 Dose: Not Given Documented by: [id number] Cosigned by: [id number] Isosorbide Mononitrate (Imdur Extended Rel) 120 mg PO BID [facility] Stop: 02/05/19 10:09 Last Admin: 01/06/19 11:25 Dose: 120 mg Documented by: [id number] Magnesium Oxide (Mag-Ox) 400 mg PO DAILY [facility] Stop: 02/05/19 10:09 Last Admin: 01/06/19 11:27 Dose: 400 mg Documented by: [id number] Miscellaneous (Order Awaiting Action) 1 ea N/A QS [facility] Stop: 02/05/19 15:59 Last Admin: 01/06/19 12:51 Dose: Not Given Documented by: [id number] Multivitamins (Multivitamin Tab) 1 tab PO DAILY [facility] Stop: 02/05/19 10:09 Last Admin: 01/06/19 11:26 Dose: 1 tab Documented by: [id number] Pantoprazole Sodium (Protonix) 40 mg PO QAM [facility] Stop: 02/05/19 10:09 Last Admin: 01/06/19 11:27 Dose: 40 mg Documented by: [id number] Potassium Chloride (Klor-Con M20) 20 meq PO QAM [facility] Stop: 02/05/19 10:09 Last Admin: 01/06/19 11:26 Dose: 20 meq Documented by: [id number] Pravastatin Sodium (Pravachol) 80 mg PO DAILY [facility] Stop: 02/05/19 10:09 Last Admin: 01/06/19 11:27 Dose: 80 mg Documented by: [id number] Sitagliptin Phosphate (Januvia) 100 mg PO DAILY [facility] Stop: 02/05/19 10:09 Last Admin: 01/06/19 11:34 Dose: Not Given Documented by: [id number] Discontinued Medications Al Hydrox/Mg Hydrox/Simethicone (Maalox) 30 ml PO NOW STA Stop: 01/06/19 09:07 Last Admin: 01/06/19 09:51 Dose: 30 ml Documented by: [id number] Famotidine (Pepcid) 20 mg PO NOW ONE Stop: 01/06/19 09:07 Last Admin: 01/06/19 09:51 Dose: 20 mg Documented by: [id number] Famotidine (Pepcid) 20 mg PO TODAY@1300 [facility] Stop: 01/06/19 13:01 Last Admin: 01/06/19 12:51 Dose: 20 mg Documented by: [id number] Fentanyl Citrate (Fentanyl Citrate) 50 mcg IV NOW STA Stop: 01/06/19 05:56 Last Admin: 01/06/19 06:12 Dose: 50 mcg Documented by: [id number] Nitroglycerin (Nitro-Bid 2%) 0.5 inch EXT NOW ONE Stop: 01/06/19 10:17 Last Admin: 01/06/19 11:32 Dose: 0.5 inch Documented by: [id number] Perflutren Lipid Microsphere (Definity) 2 ml IV ONCE ONE Stop: 01/06/19 14:06 Last Admin: 01/06/19 14:05 Dose: 2 ml Documented by: [id number] Medical Decision Making Differential Diagnosis Differential diagnosis includes: unstable angina, STEMI, GERD, costochondritis. Medical Records Attestation: I reviewed the patient's medical records. Home Medications Current Medication List: was personally reviewed by me Laboratory Data Attestation: I reviewed the patient's lab results. Result diagrams: 01/06/19 06:07 01/06/19 06:07 Lab Results 01/06/19 01/06/19 01/06/19 Range/Units 06:07 06:07 11:27 WBC 6.98 (4.8-10.8) K/uL RBC 3.41 L (4.2-5.4) M/uL Hgb 11.1 L (12.0-16.0) g/dL Hct 33.9 L (37-47) % MCV 99.4 (80-100) fL MCH 32.6 (25-34) pg MCHC 32.7 (32-36) g/dL RDW Std Deviation 49.5 H (36.4-46.3) fL RDW Coeff of Albert 13.8 (11.5-14.5) % Plt Count 206 (130-400) K/uL MPV 10.8 H (7.4-10.4) fL Immature Gran % (Auto) 0.3 % Neut % (Auto) 65.3 % Lymph % (Auto) 19.3 % Owsley % (Auto) 10.3 % Eos % (Auto) 4.2 % Baso % (Auto) 0.6 % Immature Gran # (Auto) 0.02 (0.00-0.02) K/uL Neut # (Auto) 4.56 (1.4-6.5) K/uL Lymph # (Auto) 1.35 (1.2-3.4) K/uL Owsley # (Auto) 0.72 H (0.11-0.59) K/uL Eos # (Auto) 0.29 (0-0.5) K/uL Baso # (Auto) 0.04 (0-0.2) K/uL Sodium 137 (136-145) mmol/L Potassium 3.5 (3.5-5.1) mmol/L Chloride 102 (98-107) mmol/L Carbon Dioxide 29 (21-32) mmol/L Anion Gap 6.0 (3-11) BUN 17 (7-18) mg/dl Creatinine 1.13 (0.6-1.2) mg/dl Est Cr Clr Drug Dosing 49.2 ml/min Est GFR ( Amer) 53.5 Est GFR (Non-Af Amer) 46.2 BUN/Creatinine Ratio 14.9 (10-20) Glucose 138 H (70-99) mg/dl POC Glucose (70-99) Calcium 8.6 (8.5-10.1) mg/dl Total Bilirubin 0.3 (0.2-1) mg/dl AST 13 L (15-37) U/L ALT 15 (12-78) U/L Alkaline Phosphatase 75 (45-117) U/L Troponin I < 0.015 < 0.015 (0-0.045) ng/ml Total Protein 7.8 (6.4-8.2) gm/dl Albumin 3.1 L (3.4-5.0) gm/dl Globulin 4.7 H (2.5-4.0) gm/dl Albumin/Globulin Ratio 0.7 L (0.9-2) Lipase 103 (73-393) U/L 01/06/19 01/06/19 Range/Units 11:32 16:42 WBC (4.8-10.8) K/uL RBC (4.2-5.4) M/uL Hgb (12.0-16.0) g/dL Hct (37-47) % MCV (80-100) fL MCH (25-34) pg MCHC (32-36) g/dL RDW Std Deviation (36.4-46.3) fL RDW Coeff of Albert (11.5-14.5) % Plt Count (130-400) K/uL MPV (7.4-10.4) fL Immature Gran % (Auto) % Neut % (Auto) % Lymph % (Auto) % Owsley % (Auto) % Eos % (Auto) % Baso % (Auto) % Immature Gran # (Auto) (0.00-0.02) K/uL Neut # (Auto) (1.4-6.5) K/uL Lymph # (Auto) (1.2-3.4) K/uL Owsley # (Auto) (0.11-0.59) K/uL Eos # (Auto) (0-0.5) K/uL Baso # (Auto) (0-0.2) K/uL Sodium (136-145) mmol/L Potassium (3.5-5.1) mmol/L Chloride (98-107) mmol/L Carbon Dioxide (21-32) mmol/L Anion Gap (3-11) BUN (7-18) mg/dl Creatinine (0.6-1.2) mg/dl Est Cr Clr Drug Dosing ml/min Est GFR ( Amer) Est GFR (Non-Af Amer) BUN/Creatinine Ratio (10-20) Glucose (70-99) mg/dl POC Glucose 96 95 (70-99) Calcium (8.5-10.1) mg/dl Total Bilirubin (0.2-1) mg/dl AST (15-37) U/L ALT (12-78) U/L Alkaline Phosphatase (45-117) U/L Troponin I (0-0.045) ng/ml Total Protein (6.4-8.2) gm/dl Albumin (3.4-5.0) gm/dl Globulin (2.5-4.0) gm/dl Albumin/Globulin Ratio (0.9-2) Lipase (73-393) U/L Imaging Data Radiologist's Impression: Radiology results as stated below per my review and the radiologist's interpretation: XR chest 1V portable HISTORY: 78 years-old Female Chest Pain acute atypical chest pain COMPARISON: Chest radiographs 01/01/2018 TECHNIQUE: Portable AP view of the chest FINDINGS: Cardiac silhouette is enlarged, unchanged. Prior median sternotomy with cardiac valvular prosthesis. Calcification the thoracic aortic arch. Mild chronic scarring/atelectasis about the left lung base and lateral left midlung. Minimal subsegmental right basilar opacities also noted. No pneumothorax, pleural effusion, lobar airspace consolidation or overt pulmonary edema. Degenerative changes of the shoulders and spine. IMPRESSION: 1. Cardiomegaly without acute process. 2. Mild subsegmental bibasilar opacities suggest atelectasis. The above report was generated using voice recognition software. It may contain grammatical, syntax or spelling errors. Electronically signed by: Tonny Bethea M.D. 01/06/2019 6:32 AM ECG Data Attestation: I personally reviewed and interpreted this ECG as follows: Indication: chest pain Rate (beats per minute): 66 Rhythm: normal sinus Findings: no PAC, no PVC, no ST depression, no ST elevation, no acute ischemic change and no ectopy Blood Pressure Blood Pressure Findings: Elevated blood pressure Blood Pressure Disposition: further management by hospitalist JERROD Palacio This is a 78-year-old female patient brought to the emergency department tonight by EMS for an episode of chest pain. The patient does have intermittent episodes of chest pain at home for which she uses nitroglycerin. This episode of chest discomfort that awoke her from sleep was not relieved by nitroglycerin. The patient does have a cardiac history. Twelve-lead EKG is unremarkable and troponin was negative. The patient received fentanyl here in the emergency department with some relief of her discomfort. Vital signs were stable although blood pressure was slightly elevated. I discussed the case with the [facility] Hospitalist and they will evaluate for further management. Impression & Plan Substernal chest pain Discharge Plan Visit Data *Final* Discharge Date/Time: 01/06/19 09:54 Chief Complaint: Chest Pain Stated Complaint: chest pain ED Provider: Ifeoma Sanchez Discharge Problem: Substernal chest pain Patient Disposition: Admitted As Inpatient Discharge Instructions Interventions: ED Discharge Assessment Last Done: 01/06/19 09:54 The scribe's documentation has been prepared under my direction and personally reviewed by me in its entirety. I confirm that the note above accurately reflects all work, treatment, procedures, and medical decision making performed by me.
[2019-01-06] MEDS: DOCUSATE SODIUM 100 MG CAP PO SCH (20:45)
[2019-01-06] MEDS ORDERED: NON-FORMULARY MEDICATION (Coenzyme Q10 100 MG) PO SCH (21:00)
[2019-01-07] MEDS: ALBUTEROL 0.083% NEBU SOLN 3 ML VIAL INH SCH ×2 (07:23→19:09)
[2019-01-07] MEDS: INSULIN ASPART 100 UNITS/ML 3 ML PEN SC SCH ×4 (07:30→21:43)
[2019-01-07 08:05] LABS: Hematocrit (blood only) 31.3 % (37-47); Hemoglobin 10.2 g/dL (12.0-16.0); Mean Corpuscular Hgb Conc 32.6 g/dL (32-36); Mean Corpuscular Volume 99.7 fL (80-100); Mean Platelet Volume 10.7 fL (7.4-10.4); Platelet Count 171 K/uL (130-400); RDW Coefficient of Variation 13.8 % (11.5-14.5); RDW Standard Deviation 50.3 fL (36.4-46.3); Red Blood Count 3.14 M/uL (4.2-5.4); White Blood Count 5.56 K/uL (4.8-10.8)
[2019-01-07] MEDS ORDERED: REGADENOSON 0.4 MG/5 ML SYR IV ONE (08:05)
[2019-01-07] MEDS ORDERED: ASPIRIN 81 MG CHEW PO STA (08:39)
[2019-01-07] MEDS ORDERED: METOPROLOL TARTRATE 1 MG/ML VIAL IV STA (08:41)
[2019-01-07] MEDS ORDERED: ASPIRIN 81 MG CHEW ONE (08:43)
[2019-01-07] MEDS ORDERED: METOPROLOL TARTRATE 1 MG/ML VIAL IV ONE (08:43)
[2019-01-07] MEDS ORDERED: SODIUM CHLORIDE 0.9% 1000ML 1,000 ML IV SCH ×2 (08:45→12:00)
--- NOTE | 2019-01-07 08:49 | Cardiology Progress Note ---
Date of Service January 07, 2019 Assessment & Plan (1) Unstable angina pectoris: Imaging portion of stress test cancelled. Pt transferred from nuclear medicine to cardiac catheterization lab staging area. Will plan on administering metoprolol 5 mg IV stat, and ASA 81 mg x 4 chewed now. Start normal saline. Patient agreeable to cardiac catheterization, I will attempt to reach her daughter by phone per pt request for update. Subjective CC : follow up chest pain. Subjective: Patient felt well overnight. No additional chest pain. Troponin within normal limits , EKG without ischemic changes. I met the patientin the nuclear medicine department. Discussed options of stress testing versus proceeding to directly to cardiac catheterization. Pt and I agreed to proceed with stress test first. With administration of Lexiscan patient developed upset stomach and chest tightness that reproduced her presenting symptoms. Stress EKG was normal. Hypertension noted post Lexiscan. SL nitroglycerin x 2 administered for ongoing symptoms. Physical Exam Constitutional: WD/WN, vitals as above Respiratory: normal respiratory effort, lungs clear to auscultation Cardiovascular: RRR, no murmur, no edema Gastrointestinal (Abdomen): normal bowel sounds, soft, nontender, no hepato splenomegaly Neurologic: moves all extremities and + focal motor deficit no focal deficits Results & Data Vital Signs (Past 12 Hours) Vital Signs Temp Pulse Pulse Resp BP BP Pulse Ox 01/07/19 07:23 51 L 16 97 01/07/19 07:17 36.7 C 51 L 16 168/74 H 98 01/07/19 05:01 57 L 14 97 01/07/19 03:44 36.1 C L 58 L 20 169/76 H 97 01/07/19 01:55 67 20 96 01/07/19 00:52 57 L 01/06/19 22:50 37 C 58 L 18 147/67 H 97 Laboratory Results Cardiac Enzymes 01/06/19 01/06/19 Range/Units 11:27 17:43 Troponin I < 0.015 0.015 (0-0.045) ng/ml CBC 01/07/19 Range/Units 07:31 WBC 5.56 (4.8-10.8) K/uL RBC 3.14 L (4.2-5.4) M/uL Hgb 10.2 L (12.0-16.0) g/dL Hct 31.3 L (37-47) % Plt Count 171 (130-400) K/uL Intake and Output 01/06/19 01/07/19 01/07/19 22:59 06:59 14:59 Intake Total 100 / 100 Output Total 600 / 1000 400 / 1000 Balance -500 / -900 -400 / -900 Intake: Oral 100 / 100 Output: Urine 600 / 1000 400 / 1000 Other: Other Intake Source NPO Weight 107.5 kg
[2019-01-07] MEDS ORDERED: fentaNYL citrate 100 MCG/2 ML VIAL ONE (09:02)
[2019-01-07] MEDS ORDERED: MIDAZOLAM HCL 1 MG/ML 2ML VIAL ONE (09:02)
[2019-01-07] MEDS ORDERED: NiCARDipine HCL INJ 2.5 MG/ML 10 ML AMP ONE (09:03)
[2019-01-07] MEDS ORDERED: HEPARIN (PORCINE) 1000 UNIT/ML 10 ML (CATH LAB USE ONLY) ONE ×2 (09:03→11:01)
[2019-01-07] MEDS ORDERED: NITROGLYCERIN/D5W 100MCG/ML 20ML SYR ONE (09:03)
--- NOTE | 2019-01-07 09:14 | Pre Anesthesia Assessment ---
Date of Service January 07, 2019 Pre Sedation Assessment Vital Signs Temp Pulse Pulse Pulse Resp BP BP 01/08/19 07:40 62 01/08/19 07:35 37.3 C 65 19 140/85 01/08/19 07:21 68 16 01/08/19 04:34 37.2 C 65 20 112/61 01/08/19 00:47 64 01/07/19 23:17 37.4 C 64 16 118/60 01/07/19 22:39 72 18 01/07/19 19:48 36.7 C 66 20 164/85 H 01/07/19 19:10 77 18 01/07/19 15:14 36.7 C 57 L 20 136/82 01/07/19 14:51 36.5 C 58 L 20 120/65 01/07/19 14:20 65 125/73 01/07/19 13:45 57 L 20 142/85 H 01/07/19 13:00 56 L 18 150/94 H 01/07/19 12:47 55 L 20 147/99 H 01/07/19 12:33 56 L 20 170/80 H 01/07/19 12:25 56 L 20 164/78 H 01/07/19 11:53 36.4 C L 55 L 18 176/81 H Pulse Ox 01/08/19 07:40 01/08/19 07:35 96 01/08/19 07:21 94 01/08/19 04:34 98 01/08/19 00:47 01/07/19 23:17 98 01/07/19 22:39 95 01/07/19 19:48 98 01/07/19 19:10 95 01/07/19 15:14 95 01/07/19 14:51 01/07/19 14:20 95 01/07/19 13:45 97 01/07/19 13:00 95 01/07/19 12:47 96 01/07/19 12:33 96 01/07/19 12:25 95 01/07/19 11:53 94 Cardiovascular + regular rate and + regular rhythm + S1 normal, + S2 normal and + murmur (1/6 NAYA) Respiratory normal respiratory effort, lungs clear to auscultation Pre-Sedation Airway Assessment Smoking Status: Never smoker Procedure Planning Contraindications for Sedation: none Current Medications Reviewed: Yes Notes The planned sedation has been discussed with the patient. Informed Consent was obtained. I have identified the patient, determined the appropriateness of sedation and have assessed the patient immediately prior to the procedure. All medicine(s) and interventions are by my order.
[2019-01-07 09:17] LABS: Estimated Average Glucose 137 mg/dl; Hemoglobin A1C 6.4 % (4.5-5.6)
[2019-01-07 09:41] LABS: Albumin Level 2.7 gm/dl (3.4-5.0); BUN Creatinine Ratio 13.8 (10-20); Calcium 8.5 mg/dl (8.5-10.1); Creatinine Clr Calc Pharmacy 51.5 ml/min; Est GFR (African American) 57.8; Est GFR (Non-African American) 49.9; Potassium 3.9 mmol/L (3.5-5.1)
[2019-01-07 09:44] LABS: Albumin Globulin Ratio 0.7 (0.9-2); Bilirubin,Total 0.4 mg/dl (0.2-1); Globulin 4.1 gm/dl (2.5-4.0); Total Protein 6.8 gm/dl (6.4-8.2)
[2019-01-07] MEDS ORDERED: ONDANSETRON INJ 2 MG/ML 2 ML VIAL ONE (10:03)
[2019-01-07] MEDS ORDERED: HydrALAZINE HCL 20 MG/ML VIAL ONE (10:20)
--- NOTE | 2019-01-07 10:35 | Post Anesthesia Assessment ---
Date of Service January 07, 2019 Post Sedation Assessment Vital Signs Temp Pulse Pulse Pulse Resp BP BP 01/10/19 07:49 37.4 C 58 L 17 131/61 01/10/19 07:10 61 18 01/10/19 03:40 36.8 C 71 110/62 01/09/19 23:22 36.9 C 62 18 150/77 H 01/09/19 22:06 65 20 01/09/19 19:00 59 L 18 01/09/19 18:57 36.4 C L 57 L 18 180/91 H 01/09/19 15:11 36.9 C 53 L 19 154/72 H 01/09/19 13:48 63 01/09/19 10:43 37.0 C 61 18 149/79 H Pulse Ox 01/10/19 07:49 96 01/10/19 07:10 98 01/10/19 03:40 97 01/09/19 23:22 98 01/09/19 22:06 95 01/09/19 19:00 99 01/09/19 18:57 100 01/09/19 15:11 92 01/09/19 13:48 01/09/19 10:43 100 Recovery Score Activity: Moves 4 extremities Post Sedation Plan On clinical assessment, the patient appears to have tolerated the sedation without complications. Patient is recovering as anticipated. Patient will continue to be monitored by nursing and may be discharged when sedation discharge criteria are met per below protocol. Upon Completions of procedure and additional 15 minutes continue every 5 minute vital signs and the P.A.R. score; then discharge to a Phase I or Fast Track to Phase II per the following guidelines: * Discharge Patient to appropriate Phase II area if PAR is 8 or greater or return to pre- procedure baseline. The post - procedure orders will be as directed. * If PAR score is less than 8 or not return to pre-procedure baseline then patient will follow Phase I monitoring till PAR is reached for Phase II. The Phase I may be done in procedure room or may call to secure a Phase I area. * If naloxone or flumazenil are used for reversal, hold in Phase I for continued monitoring from when last reversal dose was given for a minimum of 60 minutes or longer pending the nurse and/or physician discretion of patient condition before discharge to Phase II. Please call the Sedation Physician to re-evaluate and complete post-note for discharge to Phase II area. Do NOT discharge from procedure sedation or Phase 1 until post- sedation evaluation note is complete by procedure /sedation MD Sedation Discharge Instructions to be given to the patient at discharge to home.
--- NOTE | 2019-01-07 10:47 | Cardiac Catheterization ---
Cardiac Cath Procedure Full Procedure Date January 07, 2019 Pre-Procedure Diagnosis Pre-Procedure Diagnosis: Angina, CAD and Valvular Disease AUC Score AUC Score: 8 Post-Procedure Diagnosis Post-Procedure Diagnosis: Severe CAD Procedure(s) Performed Procedure(s) Performed: Coronary Angiography and Femoral Artery Angiography Production Intern Aj Vargas DO Coconut Cooker(s) Glunt PERSONAL DEVELOPMENT EDUCATOR Estimated Blood Loss Estimated Blood Loss: 8cc Summary of Findings Severe proximal RCA stenosis Severe mid LAD stenosis Hemodynamics Rest Ao:: 174/68/106 Final Ao: 198/76/123 LV: N/A Recommendations Recommendations: PCI without planned CABG Specimens Specimens: None Radiation Exposure (mGy) 2095 Contrast (mls) 120 Fluids (cc crystalloids) Fluids (cc crystalloids): 45 Nss Anesthesia Moderate sedation. Start 0931. End 1035. Sedation monitor Showers RN. Procedural Complication(s) None Unable to advance wire in radial artery due to vasospasm. ACC Data: Tow Picker Cardiac Status Clinical evaluation leading to the procedure CAD Presenation: Unstable angina Anginal Classification: CCS IV Heart Failure: No Imaging Studies Past 6 Months: Yes Stress Studies Past 6 Months: No Coronary Anatomy Dominant: Right Left Main (% Stenosis): Mid (20%) LAD (% Stenosis): Proximal (50%), Mid (70% 'NAPKIN RING" followed by 60%) and Distal (10%) D1 (% Stenosis): Ostial (70%) Circumflex (% Stenosis): Mid (50%) OM1 (% Stenosis): Ostial (70%, small vessel) OM2 (% Stenosis): Ostial (20%) L PL1 (% Stenosis): Mid (20% diffuse) RCA (% Stenosis): Ostial (30%), Proximal (80% followed by tandem 50-60% stenosis), Mid (diffuse 30-40%. Patent stent with 20% ISR) and Distal (30%) R PDA (% Stenosis): Ostial (60%) Diagnostic Physicians Name: Aj Vargas DO Closure Device Recommendations: PCI without planned CABG
[2019-01-07] MEDS ORDERED: CLOPIDOGREL BISULFATE 300 MG TAB ONE (11:43)
[2019-01-07] MEDS ORDERED: ACETAMINOPHEN 325 MG TAB PO PRN (11:48)
[2019-01-07] MEDS ORDERED: ONDANSETRON INJ 2 MG/ML 2 ML VIAL IV PRN (11:48)
--- NOTE | 2019-01-07 11:53 | Post Anesthesia Assessment ---
Date of Service January 07, 2019 Post Sedation Assessment Vital Signs Temp Pulse Pulse Resp BP BP BP 01/07/19 09:06 68 168/74 H 01/07/19 07:23 51 L 16 01/07/19 07:17 36.7 C 51 L 16 168/74 H 01/07/19 07:00 51 L 01/07/19 05:01 57 L 14 01/07/19 03:44 36.1 C L 58 L 20 169/76 H 01/07/19 01:55 67 20 01/07/19 00:52 57 L 01/06/19 22:50 37 C 58 L 18 147/67 H 01/06/19 19:47 36.4 C L 52 L 18 118/77 01/06/19 19:00 56 L 16 01/06/19 16:08 36.5 C 52 L 20 142/65 H Pulse Ox 01/07/19 09:06 01/07/19 07:23 97 01/07/19 07:17 98 01/07/19 07:00 01/07/19 05:01 97 01/07/19 03:44 97 01/07/19 01:55 96 01/07/19 00:52 01/06/19 22:50 97 01/06/19 19:47 100 01/06/19 19:00 98 01/06/19 16:08 99 Recovery Score Activity: Moves 4 extremities Respiration: Deep Breath/Cough Circulation: +/-20% PreAnes Value Consciousness: Fully Awake Oxygen Saturation: O2 needed for >90% Discharge Sedation Level of Care: Fast Track Phase II Post Sedation Plan On clinical assessment, the patient appears to have tolerated the sedation without complications. Patient is recovering as anticipated. Patient will continue to be monitored by nursing and may be discharged when sedation discharge criteria are met per below protocol. Upon Completions of procedure and additional 15 minutes continue every 5 minute vital signs and the P.A.R. score; then discharge to a Phase I or Fast Track to Phase II per the following guidelines: * Discharge Patient to appropriate Phase II area if PAR is 8 or greater or return to pre- procedure baseline. The post - procedure orders will be as directed. * If PAR score is less than 8 or not return to pre-procedure baseline then patient will follow Phase I monitoring till PAR is reached for Phase II. The Phase I may be done in procedure room or may call to secure a Phase I area. * If naloxone or flumazenil are used for reversal, hold in Phase I for continued monitoring from when last reversal dose was given for a minimum of 60 minutes or longer pending the nurse and/or physician discretion of patient condition before discharge to Phase II. Please call the Sedation Physician to re-evaluate and complete post-note for discharge to Phase II area. Do NOT discharge from procedure sedation or Phase 1 until post- sedation evaluation note is complete by procedure /sedation MD Sedation Discharge Instructions to be given to the patient at discharge to home.
--- NOTE | 2019-01-07 11:55 | Cardiac Catheterization ---
Cardiac Cath Procedure: Brief Procedure Date January 07, 2019 Pre-Procedure Diagnosis Pre-Procedure Diagnosis: Angina and CAD AUC Score AUC Score: 8 Post-Procedure Diagnosis Post-Procedure Diagnosis: Severe CAD and Successful PCI Procedure(s) Performed Procedure(s) Performed: Coronary Angiography, Drug Eluting Stent and IVUS Tar And Ammonia Pump Operator Yony Huerta MD Water Treatment Operator(s) Glunt GEOPHYSICAL ENGINEER Estimated Blood Loss Estimated Blood Loss: 8cc Medication(s) Medication(s): Clopidogrel, Fentanyl, Heparin, Lidocaine 1%, Nicardipine, Nitroglycerin and Versed Preliminary Findings Severe proximal RCA stenosis Severe mid LAD stenosis 1. Successful PCI of ostial to mid LAD with 2 overlapping MONTSE ( 3.5 x 18, 3.5 x 38mm Juventino). Recommendations Recommendations: PCI without planned CABG Specimens Specimens: None Anesthesia moderate Procedural Complication(s) None Unable to advance wire in radial artery due to vasospasm. Disposition PCU
[2019-01-07] MEDS: CARVEDILOL 6.25 MG TAB PO SCH ×2 (12:55→21:29)
[2019-01-07] MEDS: dilTIAZem HCL 180 MG CAPCR PO SCH (12:55)
[2019-01-07] MEDS: MAGNESIUM OXIDE 400 MG TAB PO SCH (12:56)
[2019-01-07] MEDS: ASPIRIN 81 MG ECTAB PO SCH (12:56)
[2019-01-07] MEDS: POTASSIUM CHLORIDE 20 MEQ TABCR PO SCH (12:56)
[2019-01-07] MEDS: ISOSORBIDE MONO EXTENDED REL 60 MG TABCR PO SCH ×2 (12:57→21:25)
[2019-01-07] MEDS: MULTIVITAMIN TAB PO SCH (12:57)
[2019-01-07] MEDS: PANTOprazole 40 MG TAB PO SCH (12:57)
[2019-01-07] MEDS: FERROUS SULFATE 325 MG TAB PO SCH (12:57)
[2019-01-07] MEDS: FUROSEMIDE 20 MG TAB PO SCH ×2 (12:57→16:47)
[2019-01-07] MEDS: FAMOTIDINE 20 MG TAB PO SCH (12:58)
[2019-01-07] MEDS: PRAVASTATIN SOD 40 MG TAB PO SCH (12:58)
[2019-01-07] MEDS: ESCITALOPRAM OXALATE 10 MG TAB PO SCH (12:58)
--- NOTE | 2019-01-07 14:46 | Hospitalist Progress Note ---
Date of Service January 07, 2019 Assessment & Plan (1) Unstable angina pectoris: - Initial trop was negative; EKG showed no ST-T wave changes. - Echo showed EF 55-60%, mild LVH. - Stress test followed by cardiac cath completed this morning -- had severe proximal RCA and mid LAD stenosis, s/p PCI of ostial to mid LAD with 2 overlapping MONTSE. - Cardiology following, appreciate input. - Continue Coreg, Diltiazem, Imdur, Pravastatin, Aspirin as prescribed; added Plavix to regimen per cardiology. - IV fluids (500 cc) post cardiac cath to be infused. (2) CAD (coronary artery disease): - H/o cath with placement of MONTSE to RCA in 2000. - Most recent cath was in 2012; repeat cardiac cath today as noted above. - Continue cardiac meds as noted above. (3) PAF (paroxysmal atrial fibrillation): - Rate controlled -- has been bradycardic with HR in the 50's. - Continue Coreg and Diltiazem with hold parameters. - Not currently on anticoagulation due to h/o GI bleeding. (4) H/O aortic valve replacement: - Stable, will monitor. (5) HTN (hypertension): - Continue home Coreg, Diltiazem, Lasix as prescribed. (6) HLD (hyperlipidemia): - Continue statin as prescribed. (7) Chronic diastolic heart failure: - TTE showed EF 55-60%, basal septum is thickened, mild LVH. - Monitor net I/O's and daily weights. - Continue home Lasix 40 mg BID and Coreg as prescribed. (8) T2DM (type 2 diabetes mellitus): - Hemoglobin A1C was 6.4 - Hold home Januvia; on SSI coverage. (9) CKD (chronic kidney disease) stage 3, GFR 30-59 ml/min: - Renally dose all meds. (10) Anemia: - Hemoglobin ~9-11 at baseline; does have h/o GI bleeding. - Consider iron studies -- have not been completed recently. (11) GERD (gastroesophageal reflux disease): - PPI BID and H2RA daily. (12) LAINE on CPAP: - CPAP qhs. (13) Depression: - Continue Lexapro as prescribed. (14) Morbid obesity: - BMI 40.7 - encourage weight loss and exercise. (15) DVT prophylaxis: - ASA/Plavix; possible h/o HIT -- hold Heparin ppx. Dispo: PCU/telemetry s/p cardiac cath with placement of MONTSE x 2. Supervising Physician Co-Signing Physician Notes Attending Attestation: Chart reviewed in detail, care plan d/w THEE Dick. I agree w/ the suarez components of her documentation. 78yo female with known CAD who presented with chest pain. Underwent stress test today and during such had chest pain similar to her presenting chest pain. Therefore she underwent cardiac cath by Dr Vargas which showed diffuse CAD - particularly the RCA and LAD. Dr Huerta was subsequently asked to intervene. He placed 2 MONTSE to the LAD lesion. Post-cath has remained hemodynamically stable. Jose Eduardo Guerrero MD Subjective Pt is doing well s/p cardiac cath -- denies chest pain, SOB, N/V. Does have suprapubic pain -- feels like she is retaining urine. Review of Systems Review of Systems: All systems reviewed & are unremarkable except as noted in HPI & below Constitutional: no fever, no chills, no fatigue, no weakness and no anorexia Respiratory: no cough, no dyspnea, no dyspnea on exertion and no wheezing Cardiovascular: no chest pain, no chest pain at rest, no chest pain with activity, no radiating jaw, neck or arm pain, no palpitations, no lightheadedness, no syncope and no edema Gastrointestinal: no abdominal pain, no nausea, no vomiting, no constipation and no diarrhea/loose stools Genitourinary: + difficulty urinating Musculoskeletal: no back pain and no joint pain Integumentary: no non-healing lesions Allergy / Immunological: no rash Physical Exam Physical Exam: General: Resting comfortably in no apparent distress HEENT: NC/AT; PERRLA with EOMI; [place] conjunctiva, MMM. No erythema of posterior pharynx Neck: Supple and nontender Cardiac: RRR Lungs: CTA bilaterally Abdomen: Bowel normoactive X 4; Nontender to palpation Extremities: Warm. No edema present Neuro: No focal weakness Skin: No rash Results & Data Vital Signs (Past 12 Hours) Vital Signs Temp Pulse Pulse Resp BP BP BP 01/07/19 14:20 65 125/73 01/07/19 13:45 57 L 20 142/85 H 01/07/19 13:00 56 L 18 150/94 H 01/07/19 12:47 55 L 20 147/99 H 01/07/19 12:33 56 L 20 170/80 H 01/07/19 12:25 56 L 20 164/78 H 01/07/19 11:53 36.4 C L 55 L 18 176/81 H 01/07/19 09:06 68 168/74 H 01/07/19 07:23 51 L 16 01/07/19 07:17 36.7 C 51 L 16 168/74 H 01/07/19 07:00 51 L 01/07/19 05:01 57 L 14 01/07/19 03:44 36.1 C L 58 L 20 169/76 H Pulse Ox 01/07/19 14:20 95 01/07/19 13:45 97 01/07/19 13:00 95 01/07/19 12:47 96 01/07/19 12:33 96 01/07/19 12:25 95 01/07/19 11:53 94 01/07/19 09:06 01/07/19 07:23 97 01/07/19 07:17 98 01/07/19 07:00 01/07/19 05:01 97 01/07/19 03:44 97 Laboratory Results 01/07/19 01/07/19 01/07/19 Range/Units 11:57 11:21 10:57 WBC (4.8-10.8) K/uL RBC (4.2-5.4) M/uL Hgb (12.0-16.0) g/dL Hct (37-47) % MCV (80-100) fL MCH (25-34) pg MCHC (32-36) g/dL RDW Std Deviation (36.4-46.3) fL RDW Coeff of Albert (11.5-14.5) % Plt Count (130-400) K/uL MPV (7.4-10.4) fL Activ Coag Time Kaolin 241 H 208 H (94-140) SECONDS Sodium (136-145) mmol/L Potassium (3.5-5.1) mmol/L Chloride (98-107) mmol/L Carbon Dioxide (21-32) mmol/L Anion Gap (3-11) BUN (7-18) mg/dl Creatinine (0.6-1.2) mg/dl Est Cr Clr Drug Dosing ml/min Est GFR ( Amer) Est GFR (Non-Af Amer) BUN/Creatinine Ratio (10-20) Glucose (70-99) mg/dl POC Glucose 95 (70-99) Estimat Average Glucose mg/dl Hemoglobin A1c (4.5-5.6) % Calcium (8.5-10.1) mg/dl Total Bilirubin (0.2-1) mg/dl AST (15-37) U/L ALT (12-78) U/L Alkaline Phosphatase (45-117) U/L Troponin I (0-0.045) ng/ml Total Protein (6.4-8.2) gm/dl Albumin (3.4-5.0) gm/dl Globulin (2.5-4.0) gm/dl Albumin/Globulin Ratio (0.9-2) Triglycerides (0-150) mg/dl Cholesterol (0-200) mg/dl LDL Cholesterol, Calc mg/dl VLDL Cholesterol, Calc mg/dl HDL Cholesterol mg/dl Cholesterol/HDL Ratio 01/07/19 01/07/19 01/07/19 Range/Units 07:31 07:31 07:31 WBC 5.56 (4.8-10.8) K/uL RBC 3.14 L (4.2-5.4) M/uL Hgb 10.2 L (12.0-16.0) g/dL Hct 31.3 L (37-47) % MCV 99.7 (80-100) fL MCH 32.5 (25-34) pg MCHC 32.6 (32-36) g/dL RDW Std Deviation 50.3 H (36.4-46.3) fL RDW Coeff of Albert 13.8 (11.5-14.5) % Plt Count 171 (130-400) K/uL MPV 10.7 H (7.4-10.4) fL Activ Coag Time Kaolin (94-140) SECONDS Sodium 138 (136-145) mmol/L Potassium 3.9 (3.5-5.1) mmol/L Chloride 105 (98-107) mmol/L Carbon Dioxide 30 (21-32) mmol/L Anion Gap 3.0 (3-11) BUN 15 (7-18) mg/dl Creatinine 1.06 (0.6-1.2) mg/dl Est Cr Clr Drug Dosing 51.5 ml/min Est GFR ( Amer) 57.8 Est GFR (Non-Af Amer) 49.9 BUN/Creatinine Ratio 13.8 (10-20) Glucose 107 H (70-99) mg/dl POC Glucose (70-99) Estimat Average Glucose 137 mg/dl Hemoglobin A1c 6.4 H (4.5-5.6) % Calcium 8.5 (8.5-10.1) mg/dl Total Bilirubin 0.4 (0.2-1) mg/dl AST 14 L (15-37) U/L ALT 11 L (12-78) U/L Alkaline Phosphatase 66 (45-117) U/L Troponin I (0-0.045) ng/ml Total Protein 6.8 (6.4-8.2) gm/dl Albumin 2.7 L (3.4-5.0) gm/dl Globulin 4.1 H (2.5-4.0) gm/dl Albumin/Globulin Ratio 0.7 L (0.9-2) Triglycerides 82 (0-150) mg/dl Cholesterol 125 (0-200) mg/dl LDL Cholesterol, Calc 69 mg/dl VLDL Cholesterol, Calc 16 mg/dl HDL Cholesterol 40 mg/dl Cholesterol/HDL Ratio 3 01/07/19 01/06/19 01/06/19 Range/Units 07:29 20:33 17:43 WBC (4.8-10.8) K/uL RBC (4.2-5.4) M/uL Hgb (12.0-16.0) g/dL Hct (37-47) % MCV (80-100) fL MCH (25-34) pg MCHC (32-36) g/dL RDW Std Deviation (36.4-46.3) fL RDW Coeff of Albert (11.5-14.5) % Plt Count (130-400) K/uL MPV (7.4-10.4) fL Activ Coag Time Kaolin (94-140) SECONDS Sodium (136-145) mmol/L Potassium (3.5-5.1) mmol/L Chloride (98-107) mmol/L Carbon Dioxide (21-32) mmol/L Anion Gap (3-11) BUN (7-18) mg/dl Creatinine (0.6-1.2) mg/dl Est Cr Clr Drug Dosing ml/min Est GFR ( Amer) Est GFR (Non-Af Amer) BUN/Creatinine Ratio (10-20) Glucose (70-99) mg/dl POC Glucose 112 H 114 H (70-99) Estimat Average Glucose mg/dl Hemoglobin A1c (4.5-5.6) % Calcium (8.5-10.1) mg/dl Total Bilirubin (0.2-1) mg/dl AST (15-37) U/L ALT (12-78) U/L Alkaline Phosphatase (45-117) U/L Troponin I 0.015 (0-0.045) ng/ml Total Protein (6.4-8.2) gm/dl Albumin (3.4-5.0) gm/dl Globulin (2.5-4.0) gm/dl Albumin/Globulin Ratio (0.9-2) Triglycerides (0-150) mg/dl Cholesterol (0-200) mg/dl LDL Cholesterol, Calc mg/dl VLDL Cholesterol, Calc mg/dl HDL Cholesterol mg/dl Cholesterol/HDL Ratio 01/06/19 Range/Units 16:42 WBC (4.8-10.8) K/uL RBC (4.2-5.4) M/uL Hgb (12.0-16.0) g/dL Hct (37-47) % MCV (80-100) fL MCH (25-34) pg MCHC (32-36) g/dL RDW Std Deviation (36.4-46.3) fL RDW Coeff of Albert (11.5-14.5) % Plt Count (130-400) K/uL MPV (7.4-10.4) fL Activ Coag Time Kaolin (94-140) SECONDS Sodium (136-145) mmol/L Potassium (3.5-5.1) mmol/L Chloride (98-107) mmol/L Carbon Dioxide (21-32) mmol/L Anion Gap (3-11) BUN (7-18) mg/dl Creatinine (0.6-1.2) mg/dl Est Cr Clr Drug Dosing ml/min Est GFR ( Amer) Est GFR (Non-Af Amer) BUN/Creatinine Ratio (10-20) Glucose (70-99) mg/dl POC Glucose 95 (70-99) Estimat Average Glucose mg/dl Hemoglobin A1c (4.5-5.6) % Calcium (8.5-10.1) mg/dl Total Bilirubin (0.2-1) mg/dl AST (15-37) U/L ALT (12-78) U/L Alkaline Phosphatase (45-117) U/L Troponin I (0-0.045) ng/ml Total Protein (6.4-8.2) gm/dl Albumin (3.4-5.0) gm/dl Globulin (2.5-4.0) gm/dl Albumin/Globulin Ratio (0.9-2) Triglycerides (0-150) mg/dl Cholesterol (0-200) mg/dl LDL Cholesterol, Calc mg/dl VLDL Cholesterol, Calc mg/dl HDL Cholesterol mg/dl Cholesterol/HDL Ratio (1) T2DM (type 2 diabetes mellitus) Diabetes mellitus mcfp insulin use: without manager intermediate use (2) HTN (hypertension) Hypertension type: essential hypertension Qualified Code(s): I10 - Essential (primary) hypertension
--- NOTE | 2019-01-07 17:58 | Myocardial Perfusion Study ---
Date of Service January 07, 2019 Myocardial Perfusion Study [facility] Myocardial Perfusion Study Report Procedure: 1. Lexiscan pharmacologic stress EKG Indications: Chest discomfort, history of coronary heart disease Ordering physician: Kvng Marquez DO Procedural details: For the stress portion of the study, Lexiscan 0.4 mg was intravenously administered followed by a saline flush. This was followed by 21.9 mCi of technetium 99m Cardiolite, injected at 8:15 AM on 01/07/2019. After administration of Lexiscan the patient described chest tightness and upset stomach. She was noted to be hypertensive with systolic blood pressure in the range of 160s to 170s despite the administration of Lexiscan which typically lowers the blood pressure. She had drink of caffeinated Coca-Cola and had ongoing symptoms. EKG at baseline revealed sinus rhythm without ST segment changes. Her EKG remained normal without any suggestion of ischemia. Initial blood pressure 158/88, presenting heart rate 58 bpm. Peak stress blood pressure 168/78, peak stress heart rate 79 bpm. The patient's symptoms persisted Ponting administration of sublingual nitroglycerin 0.4 mg x 2 doses with ongoing symptoms of chest tightness. The imaging portion of the stress was therefore canceled. Patient was transferred from the nuclear stress test lab to the cardiac catheterization laboratory staging area for further stabilization and planned cardiac catheterization. Impression: Equivocal pharmacologic EKG stress test. No EKG changes to suggest ischemia, however the patient's presenting symptoms were reproduced, and were felt to be consistent with angina.
--- NOTE | 2019-01-07 18:21 | Cardiac Catheterization ---
Cardiac Cath Procedure Full Procedure Date January 07, 2019 Pre-Procedure Diagnosis Pre-Procedure Diagnosis: Angina and CAD AUC Score AUC Score: 8 Post-Procedure Diagnosis Post-Procedure Diagnosis: Severe CAD and Successful PCI Procedure(s) Performed Procedure(s) Performed: Coronary Angiography, Drug Eluting Stent and IVUS Technical Inspector Yony Huerta MD Pharmacy Intern(s) Glunt BELT MEASURER Estimated Blood Loss Estimated Blood Loss: 15 Medication(s) Medication(s): Clopidogrel, Fentanyl, Heparin, Lidocaine 1%, Nicardipine, Nitroglycerin and Versed Summary of Findings Indication: Unstable angina Access: 6 Fr right common femoral artery Catheters: AR-1 guide, guide liner Findings: For full details of patient's coronary angiography please cath report dictated by Dr. Vargas. Briefly, patient found to have severe proximal to mid RCA disease. Decision to proceed with PCI. -- PCI -- Antithrombotic therapy: Heparin, clopidogrel Procedure: RCA cannulated with AR-1 BMW wire passed across lesion into distal vessel Mid to proximal lesion predilated with 2.5 compliant balloon IVUS used to assess extent of disease, degree of calcification. Unable to pass IVUS into mid segment but severe, heavily calcified proximal disease extending to ostium. With aid of guide liner 3.5 x 38 mm [place] drug-eluting stent delivered to mid segment extending back into proximal. Stent post-dilated with 3.5 noncompliant balloon 3.5 x 18 mm Juventino drug-eluting stent placed from ostium across proximal RCA overlapping proximal aspect of initial stent Stent postdilated with 3.75 NC IVUS showed well-expanded stent covering ostium IC vasodilators administered for spasm Post procedure AUDREY 3 flow, stent well expanded with minimal residual stenosis and no apparent cardiac complications. Arterial Closure: Angioseal Summary: 1. Successful PCI of RCA ostium to mid segment with 2 overlapping drug-eluting stents (3.5 x 18, 3.5 x 38 [place]). Recommendations: To PCU for continued monitoring Loaded with clopidogrel 600 mg in starch factory laborer Continue dual-antiplatelet therapy for at least 6 months Continue statin, and ASCVD risk factor modification Consult cardiac Rehab Consider FFR of mid LAD either this hospitalization or as an outpatient. Hemodynamics Rest Ao:: -- Final Ao: -- LV: -- Recommendations Recommendations: PCI without planned CABG Specimens Specimens: None Radiation Exposure (mGy) 6125 Contrast (mls) 205 Drains Drains: none Anesthesia moderate Procedural Complication(s) None Unable to advance wire in radial artery due to vasospasm. Disposition PCU ACC Data: Skoog Patching Machine Operator Cardiac Status Clinical evaluation leading to the procedure CAD Presenation: Unstable angina Anginal Classification: CCS III Heart Failure: No Cardiogenic Shock within 24 Hours: No Cardiac Arrest within 24 Hours: No Imaging Studies Past 6 Months: Yes Stress Studies Past 6 Months: No Diagnostic Physicians Name: Yony Huerta MD Status: Elective Closure Device Percutaneous Entry Location: Radial Closure Device: Angio-Seal Recommendations: PCI without planned CABG PCI Indication: Unstable Angina Lesion Segment Name: proximal to mid RCA Culprit Artery: Yes Stenosis Prior to Rx (%): 80 Chronic Total Occlusion: No IVUS: Yes FFR: No Pre-Procedure AUDREY Flow: 3 Previously Treated Lesion: No Lesion Complexity: High/C Lesion Length (mm): 45 Thrombus Present: No Bifurcation Lesion: Yes Guidewire Across Lesion: Stenosis Post-Procedure (%): 0 Post-Procedure AUDREY Flow: 3 Devices(s) Deployed: Yes Yes Intraprocedure Events Significant Disection: No Perforation: No
[2019-01-07] MEDS: ACETAMINOPHEN 325 MG TAB PO PRN (21:27)
[2019-01-07] MEDS: DOCUSATE SODIUM 100 MG CAP PO SCH (21:29)
[2019-01-08 05:56] LABS: Basophils # (auto) 0.03 K/uL (0-0.2); Basophils % (auto) 0.5 %; Eosinophils # (auto) 0.26 K/uL (0-0.5); Eosinophils % (auto) 4.2 %; Hematocrit (blood only) 29.2 % (37-47); Immature Granulocytes # (auto) 0.01 K/uL (0.00-0.02); Immature Granulocytes % (auto) 0.2 %; Lymphocytes % (auto) 22.7 %; Mean Corpuscular Hgb Conc 34.2 g/dL (32-36); Mean Corpuscular Volume 98.6 fL (80-100); Mean Platelet Volume 10.1 fL (7.4-10.4); Monocytes # (auto) 0.88 K/uL (0.11-0.59); Monocytes % (auto) 14.3 %; Neutrophils # (auto) 3.58 K/uL (1.4-6.5); Neutrophils % (auto) 58.1 %; Platelet Count 151 K/uL (130-400); RDW Coefficient of Variation 13.8 % (11.5-14.5); RDW Standard Deviation 49.3 fL (36.4-46.3); Red Blood Count 2.96 M/uL (4.2-5.4); White Blood Count 6.16 K/uL (4.8-10.8)
[2019-01-08 06:29] LABS: BUN Creatinine Ratio 12.8 (10-20); Calcium 8.1 mg/dl (8.5-10.1); Creatinine Clr Calc Pharmacy 45.1 ml/min; Est GFR (African American) 49.3; Est GFR (Non-African American) 42.5; Magnesium 2.3 mg/dl (1.8-2.4); Potassium 3.8 mmol/L (3.5-5.1)
[2019-01-08] MEDS: ALBUTEROL 0.083% NEBU SOLN 3 ML VIAL INH SCH ×2 (07:21→19:08)
[2019-01-08] MEDS: MULTIVITAMIN TAB PO SCH (07:40)
[2019-01-08] MEDS: PRAVASTATIN SOD 40 MG TAB PO SCH (07:41)
[2019-01-08] MEDS: PANTOprazole 40 MG TAB PO SCH (07:41)
[2019-01-08] MEDS: FUROSEMIDE 20 MG TAB PO SCH (07:41)
[2019-01-08] MEDS: CLOPIDOGREL BISULFATE 75 MG TAB PO SCH (07:41)
[2019-01-08] MEDS: FAMOTIDINE 20 MG TAB PO SCH (07:41)
[2019-01-08] MEDS: MAGNESIUM OXIDE 400 MG TAB PO SCH (07:42)
[2019-01-08] MEDS: ESCITALOPRAM OXALATE 10 MG TAB PO SCH (07:42)
[2019-01-08] MEDS: POTASSIUM CHLORIDE 20 MEQ TABCR PO SCH (07:42)
[2019-01-08] MEDS: dilTIAZem HCL 180 MG CAPCR PO SCH (07:42)
[2019-01-08] MEDS: CARVEDILOL 6.25 MG TAB PO SCH ×2 (07:43→20:55)
[2019-01-08] MEDS: FERROUS SULFATE 325 MG TAB PO SCH (07:43)
[2019-01-08] MEDS: ASPIRIN 81 MG ECTAB PO SCH (07:43)
[2019-01-08] MEDS: ISOSORBIDE MONO EXTENDED REL 60 MG TABCR PO SCH ×2 (07:44→20:56)
[2019-01-08] MEDS: INSULIN ASPART 100 UNITS/ML 3 ML PEN SC SCH ×4 (07:56→21:05)
--- NOTE | 2019-01-08 10:15 | Cardiology Progress Note ---
Date of Service January 08, 2019 Assessment & Plan (1) Unstable angina pectoris: Drug-eluting stent implanted x2 to the proximal and mid right coronary artery. Residual proximal and mid LAD stenosis noted. Plan staged procedure to the left anterior descending artery on Friday. Continue dual antiplatelet therapy for minimum of 6 months post percutaneous intervention. (2) CKD (chronic kidney disease) stage 3, GFR 30-59 ml/min: Repeat creatinine stable this a.m. Monitor daily basic metabolic panel. (3) PAF (paroxysmal atrial fibrillation): Diagnosed in 2018 and initially anticoagulated, however, developed significant gastrointestinal bleeding requiring transfusion of 8 units of packed red cells. EGD unremarkable however colonoscopy demonstrating significant diverticuli. Anticoagulation discontinued. Patient remains anemic however hemoglobin is stable. No signs/symptoms of active GI bleeding currently. We will continue to monitor. (4) HTN (hypertension): Labile and uncontrolled during cardiac catheterization, however BP improved this a.m. after receiving medications. Will continue to monitor. (5) HLD (hyperlipidemia): Continue statin therapy. (6) T2DM (type 2 diabetes mellitus): (7) Chronic diastolic heart failure: Compensated/euvolemic. Subjective Patient seen and examined at bedside. Feeling well from a cardiovascular perspective. Reports a brief episode of mild chest pressure in the region of her left shoulder occurring this a.m. No associated shortness of breath. No dysrhythmias on telemetry. Denies orthopnea, PND, or edema. Mild right groin discomfort noted. No significant ecchymosis or hematoma. Tolerating diet and medications. Offers no other concerns/complaints at this time. Review of Systems Review of Systems: All systems reviewed & are unremarkable except as noted in HPI & below Physical Exam Physical Exam: General: NAD, AAO x3, well nourished. Obese. HEENT: Normocephalic. Atraumatic. Conjunctiva pink, no scleral icterus. Neck: No carotid bruits, the carotid upstrokes are brisk. No JVD. No HJR Heart: Regular normal S-1 and S-2 no S-3 or S-4 gallop. 2/6 low pitched early peaking systolic ejection murmur heard best at the right second intercostal space. PMI is not displaced. No RV heave. Lungs: Clear bilateral without rales , rhonchi, or wheeze. Abdomen: Normal bowel sounds. Soft. Nontender. No masses or organomegaly. No abdominal bruits. Extremities: Right groin soft, no ecchymosis or hematoma. No clubbing, cyanosis, or edema. Pulses: radial=2/4, Dorsalis pedis =2/4, posterior tibial=2/4. Neuro: Cranial nerves grossly intact. No focal motor deficit. Results & Data Vital Signs (Past 12 Hours) Vital Signs Temp Pulse Pulse Pulse Resp BP BP 01/08/19 07:40 62 01/08/19 07:35 37.3 C 65 19 140/85 01/08/19 07:21 68 16 01/08/19 04:34 37.2 C 65 20 112/61 01/08/19 00:47 64 01/07/19 23:17 37.4 C 64 16 118/60 01/07/19 22:39 72 18 Pulse Ox 01/08/19 07:40 01/08/19 07:35 96 01/08/19 07:21 94 01/08/19 04:34 98 01/08/19 00:47 01/07/19 23:17 98 01/07/19 22:39 95 Laboratory Results Laboratory Results - last 24 hr 01/07/19 01/07/19 01/07/19 10:57 11:21 11:57 WBC RBC Hgb Hct MCV MCH MCHC RDW Std Deviation RDW Coeff of Albert Plt Count MPV Immature Gran % (Auto) Neut % (Auto) Lymph % (Auto) [place] % (Auto) Eos % (Auto) Baso % (Auto) Immature Gran # (Auto) Neut # (Auto) Lymph # (Auto) [place] # (Auto) Eos # (Auto) Baso # (Auto) Activ Coag Time Kaolin 208 H 241 H Sodium Potassium Chloride Carbon Dioxide Anion Gap BUN Creatinine Est Cr Clr Drug Dosing Est GFR ( Amer) Est GFR (Non-Af Amer) BUN/Creatinine Ratio Glucose POC Glucose 95 Calcium Magnesium 01/07/19 01/07/19 01/08/19 16:25 20:38 05:35 WBC 6.16 RBC 2.96 L Hgb 10.0 L Hct 29.2 L MCV 98.6 MCH 33.8 MCHC 34.2 RDW Std Deviation 49.3 H RDW Coeff of Albert 13.8 Plt Count 151 MPV 10.1 Immature Gran % (Auto) 0.2 Neut % (Auto) 58.1 Lymph % (Auto) 22.7 [place] % (Auto) 14.3 Eos % (Auto) 4.2 Baso % (Auto) 0.5 Immature Gran # (Auto) 0.01 Neut # (Auto) 3.58 Lymph # (Auto) 1.40 [place] # (Auto) 0.88 H Eos # (Auto) 0.26 Baso # (Auto) 0.03 Activ Coag Time Kaolin Sodium Potassium Chloride Carbon Dioxide Anion Gap BUN Creatinine Est Cr Clr Drug Dosing Est GFR ( Amer) Est GFR (Non-Af Amer) BUN/Creatinine Ratio Glucose POC Glucose 103 H 107 H Calcium Magnesium 01/08/19 01/08/19 05:35 07:13 WBC RBC Hgb Hct MCV MCH MCHC RDW Std Deviation RDW Coeff of Albert Plt Count MPV Immature Gran % (Auto) Neut % (Auto) Lymph % (Auto) [place] % (Auto) Eos % (Auto) Baso % (Auto) Immature Gran # (Auto) Neut # (Auto) Lymph # (Auto) [place] # (Auto) Eos # (Auto) Baso # (Auto) Activ Coag Time Kaolin Sodium 138 Potassium 3.8 Chloride 105 Carbon Dioxide 31 Anion Gap 2.0 L BUN 16 Creatinine 1.21 H Est Cr Clr Drug Dosing 45.1 Est GFR ( Amer) 49.3 Est GFR (Non-Af Amer) 42.5 BUN/Creatinine Ratio 12.8 Glucose 113 H POC Glucose 125 H Calcium 8.1 L Magnesium 2.3 ECG Additional Comments: Sinus rhythm, PVC, no significant ST changes. (1) T2DM (type 2 diabetes mellitus) Diabetes mellitus driller's assistant insulin use: without senior care use (2) HLD (hyperlipidemia) Hyperlipidemia type: pure hypercholesterolemia Qualified Code(s): E78.00 - Pure hypercholesterolemia, unspecified; E78.0 - Pure hypercholesterolemia (3) HTN (hypertension) Hypertension type: essential hypertension Qualified Code(s): I10 - Essential (primary) hypertension
--- NOTE | 2019-01-08 11:31 | Hospitalist Progress Note ---
Date of Service January 08, 2019 Assessment & Plan (1) Unstable angina pectoris: - Echo showed EF 55-60%, mild LVH. - Stress test followed by cardiac cath completed on 01/07/19-- had severe proximal and mid LAD stenosis, s/p drug eluting stent implanted x 2 to proximal and mid right coronary artery. - Plan for procedure to left anterior descending artery on Friday01/11/19. - Cardiology following, appreciate input. - Continue Coreg, Diltiazem, Imdur, Pravastatin, Aspirin, Plavix (will need to continue DAPT for minimum of 6 months) (2) CAD (coronary artery disease): - H/o cath with placement of MONTSE to RCA in 2000. - Most recent cath was in 2012; repeated cardiac cath with placement of 2 stents on 01/07/19. - Continue cardiac meds as noted above. (3) PAF (paroxysmal atrial fibrillation): - Rate controlled, in NSR> - Continue Coreg and Diltiazem as prescribed. - Not currently on anticoagulation due to h/o GI bleeding. (4) H/O aortic valve replacement: - Stable, will monitor. (5) HTN (hypertension): - Continue home Coreg, Diltiazem as prescribed. - Holding home evening dose of Lasix due to YENNI. (6) HLD (hyperlipidemia): - Continue statin as prescribed. (7) Chronic diastolic heart failure: - TTE showed EF 55-60%, basal septum is thickened, mild LVH. - Monitor net I/O's and daily weights. - Continue Coreg as prescribed. - Holding evening dose of Lasix due to mild YENNI -- re-evaluate on 01/09/19. (8) T2DM (type 2 diabetes mellitus): - Hemoglobin A1C was 6.4 - Hold home Januvia; on SSI coverage. (9) CKD (chronic kidney disease) stage 3, GFR 30-59 ml/min: - Renally dose all meds. - Mild increase in creatinine over last 24 hours -- holding evening dose of diuretic. (10) Anemia: - Hemoglobin ~9-11 at baseline; does have h/o GI bleeding. - Consider iron studies - on ferrous sulfate 325 mg daily. (11) GERD (gastroesophageal reflux disease): - PPI BID and H2RA daily. (12) LAINE on CPAP: - CPAP qhs. (13) Depression: - Continue Lexapro as prescribed. (14) Morbid obesity: - BMI 40 - encourage weight loss and exercise. (15) DVT prophylaxis: - ASA/Plavix; possible h/o HIT -- hold Heparin ppx. Dispo: PCU/telemetry s/p cardiac cath. Plan for procedure on Friday01/11/19, will remain inpatient over weekend. Supervising Physician Co-Signing Physician Notes Attending Attestation: Chart reviewed in detail, care plan d/w THEE Dick. I agree w/ the suarez components of her documentation. 78yo female with known CAD who presented with chest pain. Underwent stress test yesterday and during such had chest pain similar to her presenting chest pain. Therefore she underwent cardiac cath by Dr Vargas which showed diffuse CAD - particularly the RCA and LAD. Dr Huerta was subsequently asked to intervene. In my note from yesterday I inadvertantly documented that he placed 2 MONTSE to the LAD lesion. In fact he placed 2 MONTSE to the RCA lesion. He plans to intervene on the LAD lesion this Friday. Patient with stable labs and vitals at this time. Jose Eduardo Guerrero MD Subjective Pt. is doing well today. Has not had any further episodes of chest pain, SOB following cardiac cath yesterday. Last BM was on Fri; denies urinary retention, abd pain, dysuria. Will continue to monitor in PCU, cardiology following. Review of Systems Review of Systems: All systems reviewed & are unremarkable except as noted in HPI & below Constitutional: no fever, no chills, no fatigue and no weakness Respiratory: no cough, no dyspnea, no dyspnea on exertion and no wheezing Cardiovascular: no chest pain, no palpitations, no lightheadedness, no syncope and no edema Gastrointestinal: + constipation; no abdominal pain, no nausea, no vomiting and no diarrhea/loose stools Genitourinary: no dysuria and no difficulty urinating Musculoskeletal: + joint pain; no back pain Integumentary: no non-healing lesions Allergy / Immunological: no rash Physical Exam Physical Exam: General: Resting comfortably in no apparent distress HEENT: NC/AT; PERRLA with EOMI; [place] conjunctiva, MMM. No erythema of posterior pharynx Neck: Supple and nontender Cardiac: RRR Lungs: CTA bilaterally Abdomen: Bowel normoactive X 4; Nontender to palpation Extremities: Warm. No edema present Neuro: No focal weakness Skin: No rash Results & Data Vital Signs (Past 12 Hours) Vital Signs Temp Pulse Pulse Pulse Resp BP Pulse Ox 01/08/19 11:17 36.7 C 65 16 157/85 H 95 01/08/19 07:40 62 01/08/19 07:35 37.3 C 65 19 140/85 96 01/08/19 07:21 68 16 94 01/08/19 04:34 37.2 C 65 20 112/61 98 01/08/19 00:47 64 Laboratory Results 01/08/19 01/08/19 01/08/19 Range/Units 07:13 05:35 05:35 WBC 6.16 (4.8-10.8) K/uL RBC 2.96 L (4.2-5.4) M/uL Hgb 10.0 L (12.0-16.0) g/dL Hct 29.2 L (37-47) % MCV 98.6 (80-100) fL MCH 33.8 (25-34) pg MCHC 34.2 (32-36) g/dL RDW Std Deviation 49.3 H (36.4-46.3) fL RDW Coeff of Albert 13.8 (11.5-14.5) % Plt Count 151 (130-400) K/uL MPV 10.1 (7.4-10.4) fL Immature Gran % (Auto) 0.2 % Neut % (Auto) 58.1 % Lymph % (Auto) 22.7 % [place] % (Auto) 14.3 % Eos % (Auto) 4.2 % Baso % (Auto) 0.5 % Immature Gran # (Auto) 0.01 (0.00-0.02) K/uL Neut # (Auto) 3.58 (1.4-6.5) K/uL Lymph # (Auto) 1.40 (1.2-3.4) K/uL [place] # (Auto) 0.88 H (0.11-0.59) K/uL Eos # (Auto) 0.26 (0-0.5) K/uL Baso # (Auto) 0.03 (0-0.2) K/uL Activ Coag Time Kaolin (94-140) SECONDS Sodium 138 (136-145) mmol/L Potassium 3.8 (3.5-5.1) mmol/L Chloride 105 (98-107) mmol/L Carbon Dioxide 31 (21-32) mmol/L Anion Gap 2.0 L (3-11) BUN 16 (7-18) mg/dl Creatinine 1.21 H (0.6-1.2) mg/dl Est Cr Clr Drug Dosing 45.1 ml/min Est GFR ( Amer) 49.3 Est GFR (Non-Af Amer) 42.5 BUN/Creatinine Ratio 12.8 (10-20) Glucose 113 H (70-99) mg/dl POC Glucose 125 H (70-99) Calcium 8.1 L (8.5-10.1) mg/dl Magnesium 2.3 (1.8-2.4) mg/dl 01/07/19 01/07/19 01/07/19 Range/Units 20:38 16:25 11:57 WBC (4.8-10.8) K/uL RBC (4.2-5.4) M/uL Hgb (12.0-16.0) g/dL Hct (37-47) % MCV (80-100) fL MCH (25-34) pg MCHC (32-36) g/dL RDW Std Deviation (36.4-46.3) fL RDW Coeff of Albert (11.5-14.5) % Plt Count (130-400) K/uL MPV (7.4-10.4) fL Immature Gran % (Auto) % Neut % (Auto) % Lymph % (Auto) % [place] % (Auto) % Eos % (Auto) % Baso % (Auto) % Immature Gran # (Auto) (0.00-0.02) K/uL Neut # (Auto) (1.4-6.5) K/uL Lymph # (Auto) (1.2-3.4) K/uL [place] # (Auto) (0.11-0.59) K/uL Eos # (Auto) (0-0.5) K/uL Baso # (Auto) (0-0.2) K/uL Activ Coag Time Kaolin (94-140) SECONDS Sodium (136-145) mmol/L Potassium (3.5-5.1) mmol/L Chloride (98-107) mmol/L Carbon Dioxide (21-32) mmol/L Anion Gap (3-11) BUN (7-18) mg/dl Creatinine (0.6-1.2) mg/dl Est Cr Clr Drug Dosing ml/min Est GFR ( Amer) Est GFR (Non-Af Amer) BUN/Creatinine Ratio (10-20) Glucose (70-99) mg/dl POC Glucose 107 H 103 H 95 (70-99) Calcium (8.5-10.1) mg/dl Magnesium (1.8-2.4) mg/dl 01/07/19 01/07/19 Range/Units 11:21 10:57 WBC (4.8-10.8) K/uL RBC (4.2-5.4) M/uL Hgb (12.0-16.0) g/dL Hct (37-47) % MCV (80-100) fL MCH (25-34) pg MCHC (32-36) g/dL RDW Std Deviation (36.4-46.3) fL RDW Coeff of Albert (11.5-14.5) % Plt Count (130-400) K/uL MPV (7.4-10.4) fL Immature Gran % (Auto) % Neut % (Auto) % Lymph % (Auto) % [place] % (Auto) % Eos % (Auto) % Baso % (Auto) % Immature Gran # (Auto) (0.00-0.02) K/uL Neut # (Auto) (1.4-6.5) K/uL Lymph # (Auto) (1.2-3.4) K/uL [place] # (Auto) (0.11-0.59) K/uL Eos # (Auto) (0-0.5) K/uL Baso # (Auto) (0-0.2) K/uL Activ Coag Time Kaolin 241 H 208 H (94-140) SECONDS Sodium (136-145) mmol/L Potassium (3.5-5.1) mmol/L Chloride (98-107) mmol/L Carbon Dioxide (21-32) mmol/L Anion Gap (3-11) BUN (7-18) mg/dl Creatinine (0.6-1.2) mg/dl Est Cr Clr Drug Dosing ml/min Est GFR ( Amer) Est GFR (Non-Af Amer) BUN/Creatinine Ratio (10-20) Glucose (70-99) mg/dl POC Glucose (70-99) Calcium (8.5-10.1) mg/dl Magnesium (1.8-2.4) mg/dl (1) T2DM (type 2 diabetes mellitus) Diabetes mellitus correction insulin use: without feed manager use (2) HLD (hyperlipidemia) Hyperlipidemia type: pure hypercholesterolemia Qualified Code(s): E78.00 - Pure hypercholesterolemia, unspecified; E78.0 - Pure hypercholesterolemia (3) HTN (hypertension) Hypertension type: essential hypertension Qualified Code(s): I10 - Essential (primary) hypertension
[2019-01-08] MEDS: DOCUSATE SODIUM 100 MG CAP PO SCH (20:58)
[2019-01-09 05:51] LABS: Hemoglobin 9.7 g/dL (12.0-16.0); Mean Corpuscular Hgb Conc 33.4 g/dL (32-36); Mean Corpuscular Volume 97.6 fL (80-100); Mean Platelet Volume 10.7 fL (7.4-10.4); Platelet Count 151 K/uL (130-400); RDW Coefficient of Variation 13.7 % (11.5-14.5); RDW Standard Deviation 48.5 fL (36.4-46.3); Red Blood Count 2.97 M/uL (4.2-5.4); White Blood Count 6.78 K/uL (4.8-10.8)
[2019-01-09 06:21] LABS: BUN Creatinine Ratio 14.9 (10-20); Calcium 8.6 mg/dl (8.5-10.1); Creatinine Clr Calc Pharmacy 51.1 ml/min; Est GFR (African American) 57.2; Est GFR (Non-African American) 49.3; Magnesium 2.2 mg/dl (1.8-2.4); Potassium 3.6 mmol/L (3.5-5.1)
[2019-01-09] MEDS: ALBUTEROL 0.083% NEBU SOLN 3 ML VIAL INH SCH ×2 (07:03→18:58)
[2019-01-09] MEDS: FAMOTIDINE 20 MG TAB PO SCH (09:07)
[2019-01-09] MEDS: POTASSIUM CHLORIDE 20 MEQ TABCR PO SCH (09:07)
[2019-01-09] MEDS: FERROUS SULFATE 325 MG TAB PO SCH (09:08)
[2019-01-09] MEDS: dilTIAZem HCL 180 MG CAPCR PO SCH (09:08)
[2019-01-09] MEDS: MAGNESIUM OXIDE 400 MG TAB PO SCH (09:08)
[2019-01-09] MEDS: CARVEDILOL 6.25 MG TAB PO SCH ×2 (09:09→21:14)
[2019-01-09] MEDS: ASPIRIN 81 MG ECTAB PO SCH (09:09)
[2019-01-09] MEDS: PRAVASTATIN SOD 40 MG TAB PO SCH (09:09)
[2019-01-09] MEDS: CLOPIDOGREL BISULFATE 75 MG TAB PO SCH (09:09)
[2019-01-09] MEDS: PANTOprazole 40 MG TAB PO SCH (09:09)
[2019-01-09] MEDS: MULTIVITAMIN TAB PO SCH (09:09)
[2019-01-09] MEDS: ISOSORBIDE MONO EXTENDED REL 60 MG TABCR PO SCH ×2 (09:10→21:14)
[2019-01-09] MEDS: ESCITALOPRAM OXALATE 10 MG TAB PO SCH (09:10)
[2019-01-09] MEDS: INSULIN ASPART 100 UNITS/ML 3 ML PEN SC SCH ×4 (09:12→21:07)
--- NOTE | 2019-01-09 11:16 | Hospitalist Progress Note ---
Date of Service January 09, 2019 Assessment & Plan (1) Unstable angina pectoris: - Echo showed EF 55-60%, mild LVH. - Stress test followed by cardiac cath completed on 01/07/19-- had severe proximal and mid LAD stenosis, s/p drug eluting stent implanted x 2 to proximal and mid right coronary artery. - Plan for procedure to left anterior descending artery on Friday01/11/19 - NPO after midnight on Friday. - Cardiology following, appreciate input. - Continue Coreg, Diltiazem, Imdur, Pravastatin, Aspirin, Plavix (will need to continue DAPT for minimum of 6 months) (2) CAD (coronary artery disease): - H/o cath with placement of MONTSE to RCA in 2000. - Most recent cath was in 2012; repeated cardiac cath with placement of 2 stents on 01/07/19. - Continue cardiac meds as noted above. (3) PAF (paroxysmal atrial fibrillation): - Rate controlled, in NSR on patient monitor. - Continue Coreg and Diltiazem as prescribed. - Not currently on anticoagulation due to h/o GI bleeding. (4) H/O aortic valve replacement: - Stable, will monitor. (5) HTN (hypertension): - Continue home Coreg, Diltiazem as prescribed. - Resume home Lasix following improvement in YENNI. (6) HLD (hyperlipidemia): - Continue statin as prescribed. (7) Chronic diastolic heart failure: - TTE showed EF 55-60%, basal septum is thickened, mild LVH. - Monitor net I/O's and daily weights. - Continue Coreg as prescribed. - Resume home Lasix as prescribed. (8) T2DM (type 2 diabetes mellitus): - Hemoglobin A1C was 6.4 - Hold home Januvia; on SSI coverage. (9) CKD (chronic kidney disease) stage 3, GFR 30-59 ml/min: - Renally dose all meds. - Creatinine now improved back to baseline. (10) Anemia: - Hemoglobin ~9-11 at baseline; does have h/o GI bleeding. - Ferrous sulfate 325 mg daily. (11) GERD (gastroesophageal reflux disease): - PPI BID and H2RA daily. (12) LAINE on CPAP: - CPAP qhs. (13) Depression: - Continue Lexapro as prescribed. (14) Morbid obesity: - BMI 40 - encourage weight loss and exercise. (15) DVT prophylaxis: - ASA/Plavix; possible h/o HIT -- hold Heparin ppx. Dispo: PCU/telemetry s/p cardiac cath. Plan for procedure on Friday01/11/19, will remain inpatient over weekend. Supervising Physician Co-Signing Physician Notes Attending Attestation: Chart reviewed in detail, care plan d/w PA Cynthia Dick. I agree w/ the suarez components of her documentation. 78yo female with known CAD s/p heart cath by Dr Vargas this admission which showed diffuse CAD - particularly the RCA and LAD. Dr Huerta then intervened on RCA lesion placing 2 MONTSE. Intervention on LAD lesion scheduled for this Friday. Labs, vitals, and other chronic medical problems remain stable. No chest pain or other CV symptoms at this time. Jose Eduardo Guerrero MD Subjective Pt. is doing well overall. Denies further episodes of chest pain. Did have mild SOB this morning -- applied oxygen. She wears 3L throughout most of day at home and mask at night. SOB now improved. Denies N/V, constipation, diarrhea, abd pain. Review of Systems Review of Systems: All systems reviewed & are unremarkable except as noted in HPI & below Constitutional: no fever, no chills, no fatigue and no weakness Respiratory: + dyspnea and + dyspnea on exertion; no cough and no wheezing Cardiovascular: no chest pain, no palpitations, no lightheadedness, no syncope and no edema Gastrointestinal: no abdominal pain, no nausea, no vomiting, no constipation and no diarrhea/loose stools Genitourinary: no difficulty urinating Musculoskeletal: no back pain and no joint pain Integumentary: no non-healing lesions Allergy / Immunological: no rash Physical Exam Physical Exam: General: Resting comfortably in no apparent distress HEENT: NC/AT; PERRLA with EOMI; [place] conjunctiva, MMM. No erythema of posterior pharynx Neck: Supple and nontender Cardiac: RRR Lungs: on 3L via NC; CTA bilaterally Abdomen: Bowel normoactive X 4; Nontender to palpation Extremities: Warm. No edema present Neuro: No focal weakness Skin: No rash Results & Data Vital Signs (Past 12 Hours) Vital Signs Temp Pulse Pulse Pulse Resp BP BP 01/09/19 10:43 37.0 C 61 18 149/79 H 01/09/19 07:05 36.6 C 67 16 162/87 H 01/09/19 07:03 70 16 01/09/19 04:51 62 24 01/09/19 03:08 68 01/09/19 02:52 37.0 C 68 16 136/64 01/09/19 01:43 65 21 Pulse Ox 01/09/19 10:43 100 01/09/19 07:05 97 01/09/19 07:03 93 01/09/19 04:51 95 01/09/19 03:08 01/09/19 02:52 95 01/09/19 01:43 96 Laboratory Results 01/09/19 01/09/19 01/09/19 Range/Units 07:24 05:24 05:24 WBC 6.78 (4.8-10.8) K/uL RBC 2.97 L (4.2-5.4) M/uL Hgb 9.7 L (12.0-16.0) g/dL Hct 29.0 L (37-47) % MCV 97.6 (80-100) fL MCH 32.7 (25-34) pg MCHC 33.4 (32-36) g/dL RDW Std Deviation 48.5 H (36.4-46.3) fL RDW Coeff of Albert 13.7 (11.5-14.5) % Plt Count 151 (130-400) K/uL MPV 10.7 H (7.4-10.4) fL Sodium 137 (136-145) mmol/L Potassium 3.6 (3.5-5.1) mmol/L Chloride 105 (98-107) mmol/L Carbon Dioxide 26 (21-32) mmol/L Anion Gap 6.0 (3-11) BUN 16 (7-18) mg/dl Creatinine 1.07 (0.6-1.2) mg/dl Est Cr Clr Drug Dosing 51.1 ml/min Est GFR ( Amer) 57.2 Est GFR (Non-Af Amer) 49.3 BUN/Creatinine Ratio 14.9 (10-20) Glucose 86 (70-99) mg/dl POC Glucose 108 H (70-99) Calcium 8.6 (8.5-10.1) mg/dl Magnesium 2.2 (1.8-2.4) mg/dl 0510/19 05/10/19 05/10/19 Range/Units 20:12 16:23 11:15 WBC (4.8-10.8) K/uL RBC (4.2-5.4) M/uL Hgb (12.0-16.0) g/dL Hct (37-47) % MCV (80-100) fL MCH (25-34) pg MCHC (32-36) g/dL RDW Std Deviation (36.4-46.3) fL RDW Coeff of Albert (11.5-14.5) % Plt Count (130-400) K/uL MPV (7.4-10.4) fL Sodium (136-145) mmol/L Potassium (3.5-5.1) mmol/L Chloride (98-107) mmol/L Carbon Dioxide (21-32) mmol/L Anion Gap (3-11) BUN (7-18) mg/dl Creatinine (0.6-1.2) mg/dl Est Cr Clr Drug Dosing ml/min Est GFR ( Amer) Est GFR (Non-Af Amer) BUN/Creatinine Ratio (10-20) Glucose (70-99) mg/dl POC Glucose 123 H 110 H 108 H (70-99) Calcium (8.5-10.1) mg/dl Magnesium (1.8-2.4) mg/dl (1) T2DM (type 2 diabetes mellitus) Diabetes mellitus penitentiary insulin use: without penitentiary use (2) HLD (hyperlipidemia) Hyperlipidemia type: pure hypercholesterolemia Qualified Code(s): E78.00 - Pure hypercholesterolemia, unspecified; E78.0 - Pure hypercholesterolemia (3) HTN (hypertension) Hypertension type: essential hypertension Qualified Code(s): I10 - Essential (primary) hypertension
[2019-01-09] MEDS: FUROSEMIDE 20 MG TAB PO SCH ×2 (12:21→16:44)
--- NOTE | 2019-01-09 15:25 | Cardiology Progress Note ---
Date of Service January 09, 2019 Assessment & Plan (1) Unstable angina pectoris: Drug-eluting stent implanted x2 to the proximal and mid right coronary artery 01/06/19. Residual proximal and mid LAD stenosis noted. Plan staged procedure to the left anterior descending artery on Friday with FFR +/- PCI. Continue dual antiplatelet therapy for minimum of 6 months post percutaneous intervention. (2) CKD (chronic kidney disease) stage 3, GFR 30-59 ml/min: Repeat creatinine trending downward. Monitor daily basic metabolic panel. (3) PAF (paroxysmal atrial fibrillation): Diagnosed in 2018 and initially anticoagulated, however, developed significant gastrointestinal bleeding requiring transfusion of 8 units of packed red cells. EGD unremarkable however colonoscopy demonstrating significant diverticuli. Anticoagulation discontinued. Patient remains anemic however, hemoglobin is stable. No signs/symptoms of active GI bleeding currently. Continue to monitor. (4) HTN (hypertension): Labile and uncontrolled during cardiac catheterization, however BP improved this a.m. after receiving medications. Will continue to monitor. (5) HLD (hyperlipidemia): Continue statin therapy. (6) T2DM (type 2 diabetes mellitus): (7) Chronic diastolic heart failure: Compensated/euvolemic. Subjective Patient seen and examined at bedside. Feeling well from a cardiovascular perspective. No recurrent chest discomfort overnight. No dysrhythmias on telemetry. Denies orthopnea, PND, or edema. Mild right groin discomfort has resolved. No significant ecchymosis or hematoma. Tolerating diet and medications. Offers no other concerns/complaints at this time. Review of Systems Review of Systems: All systems reviewed & are unremarkable except as noted in HPI & below Physical Exam Physical Exam: General: NAD, AAO x3, well nourished. Obese. HEENT: Normocephalic. Atraumatic. Conjunctiva pink, no scleral icterus. Neck: No carotid bruits, the carotid upstrokes are brisk. No JVD. No HJR Heart: Regular normal S-1 and S-2 no S-3 or S-4 gallop. 2/6 low pitched early peaking systolic ejection murmur heard best at the right second intercostal space. PMI is not displaced. No RV heave. Lungs: Clear bilateral without rales , rhonchi, or wheeze. Abdomen: Normal bowel sounds. Soft. Nontender. No masses or organomegaly. No abdominal bruits. Extremities: Right groin soft, no ecchymosis or hematoma. No clubbing, cyanosis, or edema. Pulses: radial=2/4, Dorsalis pedis =2/4, posterior tibial=2/4. Neuro: Cranial nerves grossly intact. No focal motor deficit. Results & Data Vital Signs (Past 12 Hours) Vital Signs Temp Pulse Pulse Pulse Resp BP BP 01/09/19 15:11 36.9 C 53 L 19 154/72 H 01/09/19 13:48 63 01/09/19 10:43 37.0 C 61 18 149/79 H 01/09/19 07:05 36.6 C 67 16 162/87 H 01/09/19 07:03 70 16 01/09/19 04:51 62 24 Pulse Ox 01/09/19 15:11 92 01/09/19 13:48 01/09/19 10:43 100 01/09/19 07:05 97 01/09/19 07:03 93 01/09/19 04:51 95 (1) T2DM (type 2 diabetes mellitus) Diabetes mellitus ocean transportation intermediary insulin use: without assisted use (2) HLD (hyperlipidemia) Hyperlipidemia type: pure hypercholesterolemia Qualified Code(s): E78.00 - Pure hypercholesterolemia, unspecified; E78.0 - Pure hypercholesterolemia (3) HTN (hypertension) Hypertension type: essential hypertension Qualified Code(s): I10 - Essential (primary) hypertension
[2019-01-09] MEDS: DOCUSATE SODIUM 100 MG CAP PO SCH (21:14)
--- NOTE | 2019-01-09 22:54 | Ultrasound Report ---
US venous doppler UE RT HISTORY: Pain. Edema. Rule out DVT COMPARISON STUDY: None. FINDINGS: The internal jugular vein is patent. There is normal flow within the subclavian vein. There is normal flow and compressibility within the left axillary, basilic, brachial, radial, ulnar, and v isualized cephalic veins. At the site of clinically palpable tenderness is a 2 x 1.5 cm hematoma with in the soft tissues. IMPRESSION: No DVT within the upper extremity. Small hematoma adjacent to the clinically palpable point of tende rness. The above report was generated using voice recognition software. It may contain grammatical, syntax or spelling errors. Electronically signed by: Lei Alejo M.D. 01/09/2019 10:52 PM
[2019-01-10 06:24] LABS: Hematocrit (blood only) 28.7 % (37-47); Hemoglobin 9.6 g/dL (12.0-16.0)
[2019-01-10] MEDS: ALBUTEROL 0.083% NEBU SOLN 3 ML VIAL INH SCH ×2 (07:07→18:54)
[2019-01-10] MEDS: FERROUS SULFATE 325 MG TAB PO SCH (08:54)
[2019-01-10] MEDS: CARVEDILOL 6.25 MG TAB PO SCH ×2 (08:54→20:36)
[2019-01-10] MEDS: MAGNESIUM OXIDE 400 MG TAB PO SCH (08:54)
[2019-01-10] MEDS: ASPIRIN 81 MG ECTAB PO SCH (08:55)
[2019-01-10] MEDS: FAMOTIDINE 20 MG TAB PO SCH (08:55)
[2019-01-10] MEDS: ESCITALOPRAM OXALATE 10 MG TAB PO SCH (08:55)
[2019-01-10] MEDS: POTASSIUM CHLORIDE 20 MEQ TABCR PO SCH (08:55)
[2019-01-10] MEDS: CLOPIDOGREL BISULFATE 75 MG TAB PO SCH (08:56)
[2019-01-10] MEDS: ISOSORBIDE MONO EXTENDED REL 60 MG TABCR PO SCH ×2 (08:56→20:36)
[2019-01-10] MEDS: dilTIAZem HCL 180 MG CAPCR PO SCH (08:56)
[2019-01-10] MEDS: FUROSEMIDE 20 MG TAB PO SCH ×2 (08:57→16:49)
[2019-01-10] MEDS: PANTOprazole 40 MG TAB PO SCH (08:57)
[2019-01-10] MEDS: PRAVASTATIN SOD 40 MG TAB PO SCH (08:57)
[2019-01-10] MEDS: MULTIVITAMIN TAB PO SCH (08:57)
[2019-01-10] MEDS: INSULIN ASPART 100 UNITS/ML 3 ML PEN SC SCH ×4 (08:58→20:39)
--- NOTE | 2019-01-10 09:24 | Cardiology Progress Note ---
Date of Service January 10, 2019 Assessment & Plan (1) Unstable angina pectoris: Drug-eluting stent implanted x2 to the proximal and mid right coronary artery 01/06/19. Residual proximal and mid LAD stenosis noted. Plan staged procedure to the left anterior descending artery on tomorrow with F FR +/- PCI. N.p.o. except medications after midnight. Continue dual antiplatelet therapy for minimum of 6 months post percutaneous intervention. (2) CKD (chronic kidney disease) stage 3, GFR 30-59 ml/min: Repeat creatinine trending downward. Monitor daily basic metabolic panel. (3) PAF (paroxysmal atrial fibrillation): Diagnosed in 2018 and initially anticoagulated, however, developed significant gastrointestinal bleeding requiring transfusion of 8 units of packed red cells. EGD unremarkable however colonoscopy demonstrating significant diverticuli. Anticoagulation discontinued. Patient remains anemic however, hemoglobin is stable. No signs/symptoms of active GI bleeding currently. Continue to monitor. (4) HTN (hypertension): Labile however controlled at this time. Continue current medications. Monitor. (5) HLD (hyperlipidemia): Continue statin therapy. (6) T2DM (type 2 diabetes mellitus): (7) Chronic diastolic heart failure: Compensated/euvolemic. Continue Lasix 40 mg twice daily (home dose). Subjective Patient seen and examined at bedside. Feeling well from a cardiovascular perspective. No recurrent chest discomfort overnight. No dysrhythmias on telemetry. Denies orthopnea, PND, or edema. Tolerating diet and medications. Offers no concerns/complaints at this time. Review of Systems Review of Systems: All systems reviewed & are unremarkable except as noted in HPI & below Physical Exam Physical Exam: General: NAD, AAO x3, well nourished. Obese. HEENT: Normocephalic. Atraumatic. Conjunctiva pink, no scleral icterus. Neck: No carotid bruits, the carotid upstrokes are brisk. No JVD. No HJR Heart: Regular normal S-1 and S-2 no S-3 or S-4 gallop. 2/6 low pitched early peaking systolic ejection murmur heard best at the right second intercostal space. PMI is not displaced. No RV heave. Lungs: Clear bilateral without rales , rhonchi, or wheeze. Abdomen: Normal bowel sounds. Soft. Nontender. No masses or organomegaly. No abdominal bruits. Extremities: Right groin soft, no ecchymosis or hematoma. No clubbing, cyanosis, or edema. Pulses: radial=2/4, Dorsalis pedis =2/4, posterior tibial=2/4. Neuro: Cranial nerves grossly intact. No focal motor deficit. Results & Data Vital Signs (Past 12 Hours) Vital Signs Temp Pulse Pulse Pulse Resp BP Pulse Ox 01/10/19 07:49 37.4 C 58 L 17 131/61 96 01/10/19 07:10 61 18 98 01/10/19 03:40 36.8 C 71 110/62 97 01/09/19 23:22 36.9 C 62 18 150/77 H 98 01/09/19 22:06 65 20 95 (1) T2DM (type 2 diabetes mellitus) Diabetes mellitus half-way insulin use: without superintendent container terminal use (2) HLD (hyperlipidemia) Hyperlipidemia type: pure hypercholesterolemia Qualified Code(s): E78.00 - Pure hypercholesterolemia, unspecified; E78.0 - Pure hypercholesterolemia (3) HTN (hypertension) Hypertension type: essential hypertension Qualified Code(s): I10 - Essential (primary) hypertension
--- NOTE | 2019-01-10 13:15 | Hospitalist Progress Note ---
Date of Service January 10, 2019 Assessment & Plan (1) Unstable angina pectoris: - Echo showed EF 55-60%, mild LVH. - Stress test followed by cardiac cath 01/07/19-- had severe proximal and mid LAD stenosis, s/p drug eluting stent x 2 to proximal and mid right coronary artery. - Plan for procedure to left anterior descending artery on Friday01/11/19 - NPO after midnight. - Cardiology following, appreciate input. - Continue Coreg, Diltiazem, Imdur, Pravastatin, Aspirin, Plavix (will need to c ontinue DAPT for minimum of 6 months) (2) CAD (coronary artery disease): - H/o cath with placement of MONTSE to RCA in 2000. - Most recent cath was in 2012; repeated cardiac cath with placement of 2 stents on 01/07/19. - Continue cardiac meds (see above) (3) PAF (paroxysmal atrial fibrillation): - NSR on cardiac exercise physiologist. - Continue Coreg and Diltiazem as prescribed. - Not currently on anticoagulation due to h/o GI bleeding. (4) H/O aortic valve replacement: - Stable, will monitor. (5) HTN (hypertension): - Continue home Coreg, Diltiazem, Lasix as prescribed. (6) HLD (hyperlipidemia): - Continue statin as prescribed. (7) Chronic diastolic heart failure: - TTE showed EF 55-60%, basal septum is thickened, mild LVH. - Monitor net I/O's and daily weights. - Continue Coreg & Lasix as prescribed. (8) T2DM (type 2 diabetes mellitus): - Hemoglobin A1C was 6.4 - Hold home Januvia; on SSI coverage. (9) CKD (chronic kidney disease) stage 3, GFR 30-59 ml/min: - Renally dose all meds. - Creatinine at baseline. (10) Anemia: - Hemoglobin ~9-11 at baseline; does have h/o GI bleeding. - Ferrous sulfate 325 mg daily. (11) GERD (gastroesophageal reflux disease): - PPI BID and H2RA daily. (12) LAINE on CPAP: - CPAP qhs. (13) Depression: - Continue Lexapro as prescribed. (14) Morbid obesity: - BMI 40 - encourage weight loss and exercise. (15) DVT prophylaxis: - ASA/Plavix; ?h/o HIT -- hold Heparin ppx. Dispo: PCU/telemetry s/p cardiac cath. Plan for procedure on Friday01/11/19. Supervising Physician Co-Signing Physician Notes Attending Attestation: Chart reviewed in detail, care plan d/w PA Cynthia Dick. I agree w/ the suarez components of her documentation. 78yo female with known CAD s/p heart cath by Dr Vargas this admission which showed diffuse CAD - particularly the RCA and LAD. Dr Huerta then intervened on RCA lesion placing 2 MONTSE. Intervention on LAD lesion scheduled for tomorrow by Dr Huerta. Labs, telemetry, and vitals continue to remain stable. Chronic medical issues are stable as well. Jose Eduardo Guerrero MD Subjective Pt. is doing well overall. Denies chest pain, SOB, N/V. Is constipated -- last BM was last Fri. Will increase Colace to BID and schedule Miralax daily until she has a BM. Plan for cardiac cath on Friday. Review of Systems Review of Systems: All systems reviewed & are unremarkable except as noted in HPI & below Constitutional: no fever, no chills, no fatigue, no weakness and no anorexia Respiratory: no cough, no dyspnea, no dyspnea on exertion and no wheezing Cardiovascular: no chest pain, no palpitations, no lightheadedness, no syncope and no edema Gastrointestinal: + constipation; no abdominal pain, no nausea and no vomiting Genitourinary: no difficulty urinating Musculoskeletal: no back pain and no joint pain Integumentary: no non-healing lesions Allergy / Immunological: no rash Physical Exam Physical Exam: General: Resting comfortably in no apparent distress HEENT: NC/AT; PERRLA with EOMI; [place] conjunctiva, MMM. No erythema of posterior pharynx Neck: Supple and nontender Cardiac: RRR Lungs: on 3L via NC; CTA bilaterally Abdomen: Bowel normoactive X 4; Nontender to palpation Extremities: Warm. No edema present Neuro: No focal weakness Skin: No rash Results & Data Vital Signs (Past 12 Hours) Vital Signs Temp Pulse Pulse Pulse Resp BP Pulse Ox 01/10/19 11:37 36.9 C 57 L 18 137/70 91 01/10/19 11:27 66 01/10/19 07:49 37.4 C 58 L 17 131/61 96 01/10/19 07:10 61 18 98 01/10/19 03:40 36.8 C 71 110/62 97 Laboratory Results 01/10/19 01/10/19 01/10/19 Range/Units 10:59 07:16 05:51 Hgb 9.6 L (12.0-16.0) g/dL Hct 28.7 L (37-47) % POC Glucose 151 H 104 H (70-99) 01/09/19 01/09/19 Range/Units 20:13 16:15 Hgb (12.0-16.0) g/dL Hct (37-47) % POC Glucose 107 H 79 (70-99) (1) T2DM (type 2 diabetes mellitus) Diabetes mellitus longwall foreman insulin use: without longwall foreman use (2) HLD (hyperlipidemia) Hyperlipidemia type: pure hypercholesterolemia Qualified Code(s): E78.00 - Pure hypercholesterolemia, unspecified; E78.0 - Pure hypercholesterolemia (3) HTN (hypertension) Hypertension type: essential hypertension Qualified Code(s): I10 - Essential (primary) hypertension
[2019-01-10] MEDS: POLYETHYLENE (MIRALAX) 17 GM PACK PO SCH (15:23)
[2019-01-10] MEDS: DOCUSATE SODIUM 100 MG CAP PO SCH ×2 (15:23→20:37)
[2019-01-11 05:54] LABS: Hematocrit (blood only) 28.1 % (37-47); Hemoglobin 9.4 g/dL (12.0-16.0); Mean Corpuscular Hgb Conc 33.5 g/dL (32-36); Mean Corpuscular Volume 96.9 fL (80-100); Mean Platelet Volume 10.5 fL (7.4-10.4); Platelet Count 155 K/uL (130-400); RDW Coefficient of Variation 13.6 % (11.5-14.5); RDW Standard Deviation 47.3 fL (36.4-46.3); White Blood Count 6.18 K/uL (4.8-10.8)
[2019-01-11 06:19] LABS: BUN Creatinine Ratio 16.8 (10-20); Calcium 8.6 mg/dl (8.5-10.1); Creatinine Clr Calc Pharmacy 45.6 ml/min; Est GFR (African American) 49.8; Magnesium 2.2 mg/dl (1.8-2.4); Potassium 3.6 mmol/L (3.5-5.1)
[2019-01-11] MEDS: ALBUTEROL 0.083% NEBU SOLN 3 ML VIAL INH SCH ×2 (07:31→19:00)
[2019-01-11] MEDS: POTASSIUM CHLORIDE 20 MEQ TABCR PO SCH (09:45)
[2019-01-11] MEDS: PRAVASTATIN SOD 40 MG TAB PO SCH (09:45)
[2019-01-11] MEDS: CARVEDILOL 6.25 MG TAB PO SCH ×2 (09:45→21:04)
[2019-01-11] MEDS: PANTOprazole 40 MG TAB PO SCH (09:45)
[2019-01-11] MEDS: FERROUS SULFATE 325 MG TAB PO SCH (09:45)
[2019-01-11] MEDS: CLOPIDOGREL BISULFATE 75 MG TAB PO SCH (09:45)
[2019-01-11] MEDS: ISOSORBIDE MONO EXTENDED REL 60 MG TABCR PO SCH ×2 (09:45→21:07)
[2019-01-11] MEDS: MULTIVITAMIN TAB PO SCH (09:45)
[2019-01-11] MEDS: ESCITALOPRAM OXALATE 10 MG TAB PO SCH (09:45)
[2019-01-11] MEDS: dilTIAZem HCL 180 MG CAPCR PO SCH (09:46)
[2019-01-11] MEDS: MAGNESIUM OXIDE 400 MG TAB PO SCH (09:46)
[2019-01-11] MEDS: ASPIRIN 81 MG ECTAB PO SCH (09:46)
[2019-01-11] MEDS: POLYETHYLENE (MIRALAX) 17 GM PACK PO SCH (09:47)
[2019-01-11] MEDS: FAMOTIDINE 20 MG TAB PO SCH (09:47)
[2019-01-11] MEDS: DOCUSATE SODIUM 100 MG CAP PO SCH ×2 (09:47→21:07)
[2019-01-11] MEDS: FUROSEMIDE 20 MG TAB PO SCH ×2 (09:47→17:07)
[2019-01-11] MEDS: INSULIN ASPART 100 UNITS/ML 3 ML PEN SC SCH ×4 (09:48→21:04)
--- NOTE | 2019-01-11 12:13 | Hospitalist Progress Note ---
Date of Service January 11, 2019 Assessment & Plan (1) Unstable angina pectoris: - Echo showed EF 55-60%, mild LVH. - Cardiac cath 01/07/19 -- drug eluting stent x 2 to proximal and mid right coronary artery. - Repeat cardiac cath today --- successful PCI of proximal mid LAD across bifurcation of second diagonal with single drug eluting stent. - Cardiology following, appreciate input. - Continue Coreg, Diltiazem, Imdur, Pravastatin, Aspirin, Plavix (continue DAPT for minimum of 6 months) (2) CAD (coronary artery disease): - H/o cath with placement of MONTSE to RCA in 2000. - Most recent cath was in 2012; repeated cardiac cath with placement of 2 stents on 01/07/19. - Continue cardiac meds (see above) (3) PAF (paroxysmal atrial fibrillation): - Has been in NSR on compliance monitor. - Continue Coreg and Diltiazem as prescribed. - Not currently on anticoagulation due to h/o GI bleeding. (4) H/O aortic valve replacement: - Stable, will monitor. (5) HTN (hypertension): - Continue home Coreg, Diltiazem, Lasix as prescribed. (6) HLD (hyperlipidemia): - Continue statin as prescribed. (7) Chronic diastolic heart failure: - TTE showed EF 55-60%, basal septum is thickened, mild LVH. - Monitor net I/O's and daily weights. - Continue Coreg & Lasix as prescribed. (8) T2DM (type 2 diabetes mellitus): - Hemoglobin A1C was 6.4 - Hold home Januvia; on SSI coverage -- BG has been decreased 80-90's, may need to decrease coverage. (9) CKD (chronic kidney disease) stage 3, GFR 30-59 ml/min: - Renally dose all meds. - Creatinine at baseline. (10) Anemia: - Hemoglobin ~9-11 at baseline; does have h/o GI bleeding. - Ferrous sulfate 325 mg daily. (11) GERD (gastroesophageal reflux disease): - PPI BID and H2RA daily. (12) LAINE on CPAP: - CPAP qhs. (13) Depression: - Continue Lexapro as prescribed. (14) Morbid obesity: - BMI 40 - encourage weight loss and exercise. (15) DVT prophylaxis: - ASA/Plavix; ?h/o HIT -- hold Heparin ppx. Dispo: PCU/telemetry; repeated cardiac cath intervention today with placement of 1 drug eluting stent. Possible discharge over next 24-48 hours pending cardiology recs. Subjective Pt. is doing well. She has mild shortness of breath, is chronic for her. Stable on room air. Denies further episodes of chest pain since first cardiac cath procedure. Denies N/V, constipation or diarrhea. Plan for repeat cardiac procedure today. Review of Systems Review of Systems: All systems reviewed & are unremarkable except as noted in HPI & below Constitutional: no fever, no chills, no fatigue and no weakness Respiratory: + dyspnea; no cough, no dyspnea on exertion and no wheezing Cardiovascular: no chest pain, no palpitations, no lightheadedness and no edema Gastrointestinal: no abdominal pain, no nausea, no vomiting, no constipation and no diarrhea/loose stools Genitourinary: no difficulty urinating Musculoskeletal: no back pain and no joint pain Integumentary: no non-healing lesions Allergy / Immunological: no rash Physical Exam Physical Exam: General: Resting comfortably in no apparent distress HEENT: NC/AT; PERRLA with EOMI; [place] conjunctiva, MMM. No erythema of posterior pharynx Neck: Supple and nontender Cardiac: RRR Lungs: on room air; clear to auscultation throughout. Abdomen: Bowel normoactive X 4; Nontender to palpation Extremities: Warm. No edema present Neuro: No focal weakness Skin: No rash Results & Data Vital Signs (Past 12 Hours) Vital Signs Temp Pulse Pulse Resp BP Pulse Ox 01/11/19 11:19 37.0 C 56 L 18 168/75 H 97 01/11/19 07:48 37.1 C 60 18 140/91 95 01/11/19 07:32 74 74 20 95 01/11/19 03:21 36.5 C 68 20 141/74 H 94 Laboratory Results 01/11/19 01/11/19 01/11/19 Range/Units 11:19 07:34 05:30 WBC (4.8-10.8) K/uL RBC (4.2-5.4) M/uL Hgb (12.0-16.0) g/dL Hct (37-47) % MCV (80-100) fL MCH (25-34) pg MCHC (32-36) g/dL RDW Std Deviation (36.4-46.3) fL RDW Coeff of Albert (11.5-14.5) % Plt Count (130-400) K/uL MPV (7.4-10.4) fL Sodium 138 (136-145) mmol/L Potassium 3.6 (3.5-5.1) mmol/L Chloride 105 (98-107) mmol/L Carbon Dioxide 28 (21-32) mmol/L Anion Gap 5.0 (3-11) BUN 20 H (7-18) mg/dl Creatinine 1.20 (0.6-1.2) mg/dl Est Cr Clr Drug Dosing 45.6 ml/min Est GFR ( Amer) 49.8 Est GFR (Non-Af Amer) 43.0 BUN/Creatinine Ratio 16.8 (10-20) Glucose 92 (70-99) mg/dl POC Glucose 99 93 (70-99) Calcium 8.6 (8.5-10.1) mg/dl Magnesium 2.2 (1.8-2.4) mg/dl 01/11/19 01/10/19 01/10/19 Range/Units 05:30 20:38 16:26 WBC 6.18 (4.8-10.8) K/uL RBC 2.90 L (4.2-5.4) M/uL Hgb 9.4 L (12.0-16.0) g/dL Hct 28.1 L (37-47) % MCV 96.9 (80-100) fL MCH 32.4 (25-34) pg MCHC 33.5 (32-36) g/dL RDW Std Deviation 47.3 H (36.4-46.3) fL RDW Coeff of Albert 13.6 (11.5-14.5) % Plt Count 155 (130-400) K/uL MPV 10.5 H (7.4-10.4) fL Sodium (136-145) mmol/L Potassium (3.5-5.1) mmol/L Chloride (98-107) mmol/L Carbon Dioxide (21-32) mmol/L Anion Gap (3-11) BUN (7-18) mg/dl Creatinine (0.6-1.2) mg/dl Est Cr Clr Drug Dosing ml/min Est GFR ( Amer) Est GFR (Non-Af Amer) BUN/Creatinine Ratio (10-20) Glucose (70-99) mg/dl POC Glucose 98 81 (70-99) Calcium (8.5-10.1) mg/dl Magnesium (1.8-2.4) mg/dl (1) T2DM (type 2 diabetes mellitus) Diabetes mellitus computer terminal operator insulin use: without computer terminal operator use (2) HLD (hyperlipidemia) Hyperlipidemia type: pure hypercholesterolemia Qualified Code(s): E78.00 - Pure hypercholesterolemia, unspecified; E78.0 - Pure hypercholesterolemia (3) HTN (hypertension) Hypertension type: essential hypertension Qualified Code(s): I10 - Essential (primary) hypertension
[2019-01-11] MEDS ORDERED: HEPARIN (PORCINE) 1000 UNIT/ML 10 ML (CATH LAB USE ONLY) ONE ×2 (12:20→13:27)
[2019-01-11] MEDS ORDERED: NiCARDipine HCL INJ 2.5 MG/ML 10 ML AMP ONE (12:20)
[2019-01-11] MEDS ORDERED: fentaNYL citrate 100 MCG/2 ML VIAL ONE (12:20)
[2019-01-11] MEDS ORDERED: MIDAZOLAM HCL 1 MG/ML 2ML VIAL ONE ×2 (12:20→13:31)
[2019-01-11] MEDS ORDERED: NITROGLYCERIN/D5W 100MCG/ML 20ML SYR ONE (12:20)
[2019-01-11] MEDS ORDERED: ADENOSINE IV SOLN 3 MG/ML 20 ML VIAL IV ONE (12:43)
[2019-01-11] MEDS ORDERED: CLOPIDOGREL BISULFATE 300 MG TAB ONE (14:06)
--- NOTE | 2019-01-11 14:18 | Post Anesthesia Assessment ---
Date of Service January 11, 2019 Post Sedation Assessment Vital Signs Temp Pulse Pulse Pulse Resp BP BP 01/11/19 11:19 37.0 C 56 L 18 168/75 H 01/11/19 07:48 37.1 C 60 18 140/91 01/11/19 07:32 74 74 20 01/11/19 03:21 36.5 C 68 20 141/74 H 01/10/19 23:37 36.5 C 61 16 120/64 01/10/19 22:50 62 18 01/10/19 19:48 36.7 C 55 L 16 177/75 H 01/10/19 18:54 57 L 16 01/10/19 15:45 36.7 C 54 L 18 154/86 H Pulse Ox 01/11/19 11:19 97 01/11/19 07:48 95 01/11/19 07:32 95 01/11/19 03:21 94 01/10/19 23:37 98 01/10/19 22:50 98 01/10/19 19:48 100 01/10/19 18:54 98 01/10/19 15:45 99 Recovery Score Activity: Moves 4 extremities Respiration: Deep Breath/Cough Circulation: +/-20% PreAnes Value Consciousness: Fully Awake Oxygen Saturation: O2 needed for >90% Discharge Sedation Level of Care: Fast Track Phase II Post Sedation Plan On clinical assessment, the patient appears to have tolerated the sedation without complications. Patient is recovering as anticipated. Patient will continue to be monitored by nursing and may be discharged when sedation discharge criteria are met per below protocol. Upon Completions of procedure and additional 15 minutes continue every 5 minute vital signs and the P.A.R. score; then discharge to a Phase I or Fast Track to Phase II per the following guidelines: * Discharge Patient to appropriate Phase II area if PAR is 8 or greater or return to pre- procedure baseline. The post - procedure orders will be as directed. * If PAR score is less than 8 or not return to pre-procedure baseline then patient will follow Phase I monitoring till PAR is reached for Phase II. The Phase I may be done in procedure room or may call to secure a Phase I area. * If naloxone or flumazenil are used for reversal, hold in Phase I for continued monitoring from when last reversal dose was given for a minimum of 60 minutes or longer pending the nurse and/or physician discretion of patient condition before discharge to Phase II. Please call the Sedation Physician to re-evaluate and complete post-note for discharge to Phase II area. Do NOT discharge from procedure sedation or Phase 1 until post- sedation evaluation note is complete by procedure /sedation MD Sedation Discharge Instructions to be given to the patient at discharge to home.
--- NOTE | 2019-01-11 14:28 | Cardiac Catheterization ---
Cardiac Cath Procedure Full Procedure Date January 11, 2019 Pre-Procedure Diagnosis Pre-Procedure Diagnosis: Angina and CAD AUC Score AUC Score: 7 Post-Procedure Diagnosis Post-Procedure Diagnosis: Severe CAD and Successful PCI Procedure(s) Performed Procedure(s) Performed: Coronary Angiography, Drug Eluting Stent, Ultrasound Guided Vascular Access, IVUS and Fractional Flow [place] Educational Speech Language Clinician Yony Huerta MD International Student Advisor(s) [place] DENIAL MANAGEMENT REPRESENTATIVE Estimated Blood Loss Estimated Blood Loss: 15 Medication(s) Medication(s): Clopidogrel, Fentanyl, Heparin, Lidocaine 1%, Nicardipine, Nitroglycerin and Versed Summary of Findings Indication: Staged PCI of LAD Access: 6 Fr right ulnar artery with ultrasound guidance Catheters: EBU 3.0 guide Findings: For full details of patient's coronary angiography please cath report dictated by Dr. Vargas. Briefly, patient found to have severe RCA disease which was treated with 2 overlapping MONTSE on 01/07/2019. Also found to have moderate to severe mid LAD disease and brought back for FFR +/- PCI of LAD. -- PCI -- Antithrombotic therapy: Heparin, clopidogrel Procedure: LM cannulated with EBU 3.0 guide [place] FFR wire passed into mid LAD FFR 0.65 Decision to proceed with PCI [place]ater wire passed into large 2nd diagonal BMW wire passed across LAD lesion into distal vessel IVUS used to assess degree of calcification, extent of disease in LAD. Severe calcific disease extending from the proximal LAD across bifurcation with second diagonal. Mid to proximal lesion predilated with 2.5 compliant balloon Proximal to mid LAD stented with 3.0 x 26 mm [place] drug-eluting stent Second diagonal rewired with whisper wire Stent post-dilated with 3.0 noncompliant balloon Repeat JACOBY assessment showed underexpanded stent proximally and proximal stent re-postdilated with 3.5 NC IC vasodilators administered for spasm Post procedure AUDREY 3 flow, stent well expanded with minimal residual stenosis and no apparent cardiac complications. Arterial Closure: TR band Summary: 1. Severe, calcific proximal to mid LAD disease (FFR 0.65). 2. Successful PCI of proximal mid LAD across bifurcation of second diagonal with a single drug-eluting stent (3.0 x 26 mm Yermo; postdilated to 3.5 proximally). 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 Disposition PCU ACC Data: Field Sales Representative Cardiac Status Clinical evaluation leading to the procedure CAD Presenation: Unstable angina Anginal Classification: CCS III Heart Failure: No Cardiogenic Shock within 24 Hours: No Cardiac Arrest within 24 Hours: No Imaging Studies Past 6 Months: Yes Stress Studies Past 6 Months: No Diagnostic Physicians Name: Yony Huerta MD Closure Device Recommendations: PCI without planned CABG PCI Indication: Staged PCI Lesion Segment Name: proximal-mid LAD Culprit Artery: No Stenosis Prior to Rx (%): 70 Chronic Total Occlusion: No IVUS: Yes FFR: Yes Ratio: less than or equal to 0.75% Pre-Procedure AUDREY Flow: 3 Previously Treated Lesion: No Lesion Complexity: High/C Lesion Length (mm): 23 Thrombus Present: No Bifurcation Lesion: Yes Guidewire Across Lesion: Stenosis Post-Procedure (%): 0 Post-Procedure AUDREY Flow: 3 Devices(s) Deployed: Yes Yes Intraprocedure Events Significant Disection: No Perforation: No
[2019-01-11] MEDS ORDERED: SODIUM CHLORIDE 0.9% 1000ML 1,000 ML IV SCH (14:30)
[2019-01-12 06:07] LABS: Hematocrit (blood only) 27.4 % (37-47); Hemoglobin 9.3 g/dL (12.0-16.0); Mean Corpuscular Hgb Conc 33.9 g/dL (32-36); Mean Corpuscular Volume 97.5 fL (80-100); Mean Platelet Volume 10.7 fL (7.4-10.4); Platelet Count 163 K/uL (130-400); RDW Coefficient of Variation 13.7 % (11.5-14.5); RDW Standard Deviation 48.8 fL (36.4-46.3); Red Blood Count 2.81 M/uL (4.2-5.4)
[2019-01-12 06:43] LABS: BUN Creatinine Ratio 16.9 (10-20); Calcium 8.3 mg/dl (8.5-10.1); Creatinine Clr Calc Pharmacy 48.4 ml/min; Est GFR (Non-African American) 45.7; Potassium 3.3 mmol/L (3.5-5.1)
[2019-01-12] MEDS: ALBUTEROL 0.083% NEBU SOLN 3 ML VIAL INH SCH ×2 (07:17→19:10)
[2019-01-12] MEDS: DOCUSATE SODIUM 100 MG CAP PO SCH ×2 (07:53→20:43)
[2019-01-12] MEDS: ESCITALOPRAM OXALATE 10 MG TAB PO SCH (07:53)
[2019-01-12] MEDS: ISOSORBIDE MONO EXTENDED REL 60 MG TABCR PO SCH ×2 (07:54→20:43)
[2019-01-12] MEDS: MULTIVITAMIN TAB PO SCH (07:54)
[2019-01-12] MEDS: CARVEDILOL 6.25 MG TAB PO SCH ×2 (07:55→20:43)
[2019-01-12] MEDS: CLOPIDOGREL BISULFATE 75 MG TAB PO SCH (07:55)
[2019-01-12] MEDS: PANTOprazole 40 MG TAB PO SCH (07:55)
[2019-01-12] MEDS: FAMOTIDINE 20 MG TAB PO SCH (07:55)
[2019-01-12] MEDS: ASPIRIN 81 MG ECTAB PO SCH (07:56)
[2019-01-12] MEDS: PRAVASTATIN SOD 40 MG TAB PO SCH (07:56)
[2019-01-12] MEDS: FUROSEMIDE 20 MG TAB PO SCH ×2 (07:56→18:39)
[2019-01-12] MEDS: FERROUS SULFATE 325 MG TAB PO SCH (07:57)
[2019-01-12] MEDS: POTASSIUM CHLORIDE 20 MEQ TABCR PO SCH (07:57)
[2019-01-12] MEDS: MAGNESIUM OXIDE 400 MG TAB PO SCH (07:58)
[2019-01-12] MEDS: dilTIAZem HCL 180 MG CAPCR PO SCH (07:58)
[2019-01-12] MEDS: POLYETHYLENE (MIRALAX) 17 GM PACK PO SCH (07:59)
[2019-01-12] MEDS: INSULIN ASPART 100 UNITS/ML 3 ML PEN SC SCH ×4 (08:12→20:42)
--- NOTE | 2019-01-12 10:07 | Cardiology Progress Note ---
Date of Service January 12, 2019 Assessment & Plan (1) Unstable angina pectoris: Drug-eluting stent implanted x2 to the proximal and mid right coronary artery 01/06/19. Residual proximal and mid LAD stenosis s/p MONTSE 01/11/2019. Procedure complicated by right forearm hematoma. Continue dual antiplatelet therapy for minimum of 6 months post percutaneous intervention. Outpatient cardiology follow up scheduled 02/01/2019. (2) CKD (chronic kidney disease) stage 3, GFR 30-59 ml/min: Repeat creatinine trending downward. Mild hypokalemia noted today. Will give an additional 20 mEq of oral potassium. (total 40meq this AM) (3) PAF (paroxysmal atrial fibrillation): Diagnosed in 2018 and initially anticoagulated, however, developed significant gastrointestinal bleeding requiring transfusion of 8 units of packed red cells. EGD unremarkable however colonoscopy demonstrating significant diverticuli. Anticoagulation discontinued. Patient remains anemic however, hemoglobin mildly declined since admission, 9.3 gm/dL today. No signs/symptoms of active GI bleeding currently. Continue to monitor. (4) HTN (hypertension): Labile however, controlled at this time. Continue current medications. Monitor. (5) HLD (hyperlipidemia): Continue statin therapy. (6) T2DM (type 2 diabetes mellitus): (7) Chronic diastolic heart failure: Compensated/euvolemic. Continue Lasix 40 mg twice daily (home dose). Subjective Patient seen and examined at bedside. LAD intervention performed yesterday without complication. Patient reports right forearm discomfort related to hematoma. No recurrent chest discomfort overnight. No dysrhythmias on telemetry. Denies orthopnea, PND, or edema. Tolerating diet and medications. Offers no other concerns/complaints at this time. Review of Systems Review of Systems: All systems reviewed & are unremarkable except as noted in HPI & below Physical Exam Physical Exam: General: NAD, AAO x3, well nourished. Obese. HEENT: Normocephalic. Atraumatic. Conjunctiva pink, no scleral icterus. Neck: No carotid bruits, the carotid upstrokes are brisk. No JVD. No HJR Heart: Regular normal S-1 and S-2 no S-3 or S-4 gallop. 2/6 low pitched early peaking systolic ejection murmur heard best at the right second intercostal space. PMI is not displaced. No RV heave. Lungs: Clear bilateral without rales , rhonchi, or wheeze. Abdomen: Normal bowel sounds. Soft. Nontender. No masses or organomegaly. No abdominal bruits. Extremities: Right groin soft, no ecchymosis or hematoma. No clubbing, cyanosis, or edema. +large right anterior forearm hematoma. Pulses: radial=1/4 on right, right ulnar pulse 2/4, dorsalis pedis =2/4, posterior tibial=2/4. Neuro: Cranial nerves grossly intact. No focal motor deficit. Results & Data Vital Signs (Past 12 Hours) Vital Signs Temp Pulse Pulse Pulse Resp BP Pulse Ox 01/12/19 07:45 60 01/12/19 07:17 62 18 98 01/12/19 07:08 37 C 65 22 146/71 H 97 01/12/19 03:44 37 C 60 18 133/57 L 98 01/11/19 23:50 37.1 C 63 22 132/66 98 Laboratory Results Laboratory Results - last 24 hr 01/11/19 01/11/19 01/11/19 11:19 13:23 13:43 WBC RBC Hgb Hct MCV MCH MCHC RDW Std Deviation RDW Coeff of Albert Plt Count MPV Activ Coag Time Kaolin 252 H 263 H Sodium Potassium Chloride Carbon Dioxide Anion Gap BUN Creatinine Est Cr Clr Drug Dosing Est GFR ( Amer) Est GFR (Non-Af Amer) BUN/Creatinine Ratio Glucose POC Glucose 99 Calcium 01/11/19 01/11/19 01/12/19 16:16 20:37 05:42 WBC 6.10 RBC 2.81 L Hgb 9.3 L Hct 27.4 L MCV 97.5 MCH 33.1 MCHC 33.9 RDW Std Deviation 48.8 H RDW Coeff of Albert 13.7 Plt Count 163 MPV 10.7 H Activ Coag Time Kaolin Sodium Potassium Chloride Carbon Dioxide Anion Gap BUN Creatinine Est Cr Clr Drug Dosing Est GFR ( Amer) Est GFR (Non-Af Amer) BUN/Creatinine Ratio Glucose POC Glucose 101 H 139 H Calcium 01/12/19 05:42 WBC RBC Hgb Hct MCV MCH MCHC RDW Std Deviation RDW Coeff of Albert Plt Count MPV Activ Coag Time Kaolin Sodium 140 Potassium 3.3 L Chloride 105 Carbon Dioxide 28 Anion Gap 7.0 BUN 19 H Creatinine 1.14 Est Cr Clr Drug Dosing 48.4 Est GFR ( Amer) 53.0 Est GFR (Non-Af Amer) 45.7 BUN/Creatinine Ratio 16.9 Glucose 90 POC Glucose Calcium 8.3 L (1) T2DM (type 2 diabetes mellitus) Diabetes mellitus manager intermediate insulin use: without mcc use (2) HLD (hyperlipidemia) Hyperlipidemia type: pure hypercholesterolemia Qualified Code(s): E78.00 - Pure hypercholesterolemia, unspecified; E78.0 - Pure hypercholesterolemia (3) HTN (hypertension) Hypertension type: essential hypertension Qualified Code(s): I10 - Essential (primary) hypertension
[2019-01-12] MEDS ORDERED: POTASSIUM CHLORIDE 10 MEQ TABCR PO STA (10:19)
[2019-01-12] MEDS: ACETAMINOPHEN 325 MG TAB PO PRN (11:12)
--- NOTE | 2019-01-12 20:02 | Hospitalist Progress Note ---
Date of Service January 12, 2019 Assessment & Plan (1) Unstable angina pectoris: - Echo showed EF 55-60%, mild LVH. - Cardiac cath 01/07/19 -- drug eluting stent x 2 to proximal and mid right coronary artery; cath on 01/11 with PCI to proximal mid-LAD across bifurcation of 2nd diagonal - Cardiology following - appreciate input from cardiology and interventionalist - Continue Coreg 6.25 mg BID, Diltiazem 180 mg daily, Imdur 120 mg BID, Pravastatin 80 mg daily, Aspirin 81 mg daily, Plavix 75 mg daily (continue DAPT for minimum of 6 months) - Presence of mild hematoma a cath site without vascular compromise; Tylenol PRN and monitor overnight for any worsening findings Present on Admission?: Yes (2) CAD (coronary artery disease): - H/O cath with placement of MONTSE to RCA in 2000; Cath in 2012 - Continue cardiac meds (see above) Present on Admission?: Yes (3) PAF (paroxysmal atrial fibrillation): - Has been in [facility] on cardiac rehabilitation program director - Continue Coreg and Diltiazem as prescribed. - Not currently on anticoagulation due to H/O GI bleeding. Present on Admission?: Yes (4) H/O aortic valve replacement: - Stable, will monitor Present on Admission?: Yes (5) HTN (hypertension): - Continue home Coreg, Diltiazem, Lasix as prescribed. Present on Admission?: Yes (6) HLD (hyperlipidemia): - Continue statin as prescribed. Present on Admission?: Yes (7) Chronic diastolic heart failure: - TTE showed EF 55-60%, basal septum is thickened, mild LVH. - Monitor net I/O's and daily weights; currently compensated at this time - Continue cardiac medications; Lasix 40 mg BID Present on Admission?: Yes (8) T2DM (type 2 diabetes mellitus): - Hemoglobin A1C was 6.4 - Hold home Januvia; on SSI coverage; can return to oral anti-diabetics on D/C Present on Admission?: Yes (9) CKD (chronic kidney disease) stage 3, GFR 30-59 ml/min: - STABLE; avoid nephrotoxins and renal dosing for medications Present on Admission?: Yes (10) Anemia: - Hemoglobin ~9-11 at baseline; does have H/O GI bleed - Ferrous sulfate 325 mg daily. Present on Admission?: Yes (11) GERD (gastroesophageal reflux disease): - PPI BID and H2RA daily. Present on Admission?: Yes (12) LAINE on CPAP: - CPAP HS Present on Admission?: Yes (13) Depression: - Continue Lexapro 5 mg daily Present on Admission?: Yes (14) Morbid obesity: - BMI 40 - encourage weight loss and exercise. Present on Admission?: Yes (15) DVT prophylaxis: - ASA/Plavix; ?H/O HIT -- hold Heparin ppx. Dispo: D/C home tomorrow Subjective Reports no CP today but some discomfort in R arm at site of cath. Some bruising noted to site but good pulses and immediate cap refill without coolness or numbness/tingling. Currently NSR rhythm on monitor. Tolerating diet without issue. Plans to return home on discharge, likely tomorrow Review of Systems Constitutional: no fever and no chills Respiratory: no cough and no dyspnea Cardiovascular: no chest pain, no palpitations and no lightheadedness Gastrointestinal: no abdominal pain, no nausea, no vomiting, no constipation and no diarrhea/loose stools Genitourinary: no dysuria Integumentary: no rash Physical Exam Constitutional: well developed and well nourished; no acute distress and not ill appearing Eyes: + anicteric sclerae ENMT: Ears: no hearing impairment Neck: normal visual inspection and trachea midline Respiratory: normal respiratory effort, lungs clear to auscultation Cardiovascular: Rate/Rhythm: regular rate and regular rhythm Gastrointestinal (Abdomen): Inspection/Auscultation: normal bowel sounds Percussion/Palpation: abdomen soft; abdomen nontender Musculoskeletal: ecchymosis noted around cath site with slight pressure dressing of cause to puncture site; immediate cap refill and radial/ulnar pulses 2+ Skin: no rashes, warm and dry (other than mentioned in MS section) Neurologic: moves all extremities Psychiatric: A+Ox3, euthymic affect Results & Data Vital Signs (Past 12 Hours) Vital Signs Temp Pulse Pulse Pulse Resp BP Pulse Ox 01/12/19 19:16 36.6 C 64 17 136/84 100 01/12/19 19:13 62 18 94 01/12/19 16:00 55 L 01/12/19 10:47 37.1 C 64 18 152/73 H 97 (1) HTN (hypertension) Hypertension type: essential hypertension Qualified Code(s): I10 - Essential (primary) hypertension (2) HLD (hyperlipidemia) Hyperlipidemia type: pure hypercholesterolemia Qualified Code(s): E78.00 - Pure hypercholesterolemia, unspecified; E78.0 - Pure hypercholesterolemia (3) T2DM (type 2 diabetes mellitus) Diabetes mellitus fci insulin use: without rat exterminator use
[2019-01-13 05:44] LABS: Hematocrit (blood only) 27.6 % (37-47); Hemoglobin 9.2 g/dL (12.0-16.0); Mean Corpuscular Hgb Conc 33.3 g/dL (32-36); Mean Corpuscular Volume 97.5 fL (80-100); Mean Platelet Volume 10.7 fL (7.4-10.4); Platelet Count 166 K/uL (130-400); RDW Coefficient of Variation 13.8 % (11.5-14.5); RDW Standard Deviation 49.5 fL (36.4-46.3); Red Blood Count 2.83 M/uL (4.2-5.4); White Blood Count 5.84 K/uL (4.8-10.8)
[2019-01-13 06:04] LABS: BUN Creatinine Ratio 15.6 (10-20); Calcium 8.6 mg/dl (8.5-10.1); Creatinine Clr Calc Pharmacy 44.1 ml/min; Est GFR (African American) 47.4; Est GFR (Non-African American) 40.9; Potassium 3.6 mmol/L (3.5-5.1)
[2019-01-13] MEDS: ALBUTEROL 0.083% NEBU SOLN 3 ML VIAL INH SCH (06:52)
[2019-01-13 06:55] VITALS: BP 135/60; TEMP 98.8; O2SAT 95
[2019-01-13] MEDS: FUROSEMIDE 20 MG TAB PO SCH (08:06)
[2019-01-13] MEDS: FERROUS SULFATE 325 MG TAB PO SCH (08:06)
[2019-01-13] MEDS: MULTIVITAMIN TAB PO SCH (08:06)
[2019-01-13] MEDS: PRAVASTATIN SOD 40 MG TAB PO SCH (08:06)
[2019-01-13] MEDS: ISOSORBIDE MONO EXTENDED REL 60 MG TABCR PO SCH (08:06)
[2019-01-13] MEDS: PANTOprazole 40 MG TAB PO SCH (08:06)
[2019-01-13] MEDS: POTASSIUM CHLORIDE 20 MEQ TABCR PO SCH (08:06)
[2019-01-13] MEDS: DOCUSATE SODIUM 100 MG CAP PO SCH (08:06)
[2019-01-13] MEDS: MAGNESIUM OXIDE 400 MG TAB PO SCH (08:06)
[2019-01-13] MEDS: dilTIAZem HCL 180 MG CAPCR PO SCH (08:06)
[2019-01-13] MEDS: CARVEDILOL 6.25 MG TAB PO SCH (08:06)
[2019-01-13] MEDS: CLOPIDOGREL BISULFATE 75 MG TAB PO SCH (08:06)
[2019-01-13] MEDS: ASPIRIN 81 MG ECTAB PO SCH (08:07)
[2019-01-13] MEDS: INSULIN ASPART 100 UNITS/ML 3 ML PEN SC SCH (08:07)
[2019-01-13] MEDS: POLYETHYLENE (MIRALAX) 17 GM PACK PO SCH (08:07)
[2019-01-13] MEDS: FAMOTIDINE 20 MG TAB PO SCH (08:07)
[2019-01-13] MEDS: ESCITALOPRAM OXALATE 10 MG TAB PO SCH (08:07)
--- NOTE | 2019-01-13 09:07 | Cardiology Progress Note ---
Date of Service January 13, 2019 Assessment & Plan (1) Unstable angina pectoris: Drug-eluting stent implanted x2 to the proximal and mid right coronary artery 01/06/19. Residual proximal and mid LAD stenosis s/p MONTSE 01/11/2019. Procedure complicated by right forearm hematoma. Forearm discomfort improved today. Continue dual antiplatelet therapy for minimum of 6 months post percutaneous intervention. Outpatient cardiology follow up scheduled 02/01/2019. Cardiology will sign off. Please call with questions. (2) CKD (chronic kidney disease) stage 3, GFR 30-59 ml/min: Creatinine stable/baseline. (3) PAF (paroxysmal atrial fibrillation): Diagnosed in 2018 and initially anticoagulated, however, developed significant gastrointestinal bleeding requiring transfusion of 8 units of packed red cells. EGD unremarkable however colonoscopy demonstrating significant diverticuli. Anticoagulation discontinued. Patient remains anemic however, hemoglobin mildly declined since admission, 9.3 gm/dL today. No signs/symptoms of active GI bleeding currently. Continue to monitor. (4) HTN (hypertension): Labile however, controlled at this time. Continue current medications. (5) HLD (hyperlipidemia): Continue statin therapy. (6) T2DM (type 2 diabetes mellitus): (7) Chronic diastolic heart failure: Compensated/euvolemic. Continue Lasix 40 mg twice daily (home dose). Subjective Patient seen and examined at bedside. LAD intervention performed 01/11. Right forearm hematoma improving today. Patient states pain is controlled. No recurrent chest discomfort overnight. No dysrhythmias on telemetry. Denies orthopnea, PND, or edema. Tolerating diet and medications. Offers no other concerns/complaints at this time. Review of Systems Review of Systems: All systems reviewed & are unremarkable except as noted in HPI & below Physical Exam Physical Exam: General: NAD, AAO x3, well nourished. Obese. HEENT: Normocephalic. Atraumatic. Conjunctiva pink, no scleral icterus. Neck: No carotid bruits, the carotid upstrokes are brisk. No JVD. No HJR Heart: Regular normal S-1 and S-2 no S-3 or S-4 gallop. 2/6 low pitched early peaking systolic ejection murmur heard best at the right second intercostal space. PMI is not displaced. No RV heave. Lungs: Clear bilateral without rales , rhonchi, or wheeze. Abdomen: Normal bowel sounds. Soft. Nontender. No masses or organomegaly. No abdominal bruits. Extremities: Right groin soft, no ecchymosis or hematoma. No clubbing, cyanosis, or edema. +large right anterior forearm hematoma. + Tenderness to palpation. Pulses: radial=1/4 on right, right ulnar pulse 2/4, dorsalis pedis =2/4, posterior tibial=2/4. Neuro: Cranial nerves grossly intact. No focal motor deficit. Results & Data Vital Signs (Past 12 Hours) Vital Signs Temp Pulse Resp BP BP Pulse Ox 01/13/19 06:54 37.1 C 62 20 135/60 95 01/13/19 06:52 61 16 96 01/13/19 03:56 36.8 C 65 20 145/68 H 97 01/12/19 23:54 157/63 H 01/12/19 23:43 36.5 C 68 26 H 172/64 H 98 Laboratory Results Laboratory Results - last 24 hr 01/12/19 01/12/19 01/12/19 07:20 11:16 16:43 WBC RBC Hgb Hct MCV MCH MCHC RDW Std Deviation RDW Coeff of Albert Plt Count MPV Sodium Potassium Chloride Carbon Dioxide Anion Gap BUN Creatinine Est Cr Clr Drug Dosing Est GFR ( Amer) Est GFR (Non-Af Amer) BUN/Creatinine Ratio Glucose POC Glucose 103 H 131 H 105 H Calcium 01/12/19 01/13/19 01/13/19 20:15 05:10 05:10 WBC 5.84 RBC 2.83 L Hgb 9.2 L Hct 27.6 L MCV 97.5 MCH 32.5 MCHC 33.3 RDW Std Deviation 49.5 H RDW Coeff of Albert 13.8 Plt Count 166 MPV 10.7 H Sodium 139 Potassium 3.6 Chloride 106 Carbon Dioxide 29 Anion Gap 5.0 BUN 20 H Creatinine 1.25 H Est Cr Clr Drug Dosing 44.1 Est GFR ( Amer) 47.4 Est GFR (Non-Af Amer) 40.9 BUN/Creatinine Ratio 15.6 Glucose 97 POC Glucose 152 H Calcium 8.6 01/13/19 07:14 WBC RBC Hgb Hct MCV MCH MCHC RDW Std Deviation RDW Coeff of Albert Plt Count MPV Sodium Potassium Chloride Carbon Dioxide Anion Gap BUN Creatinine Est Cr Clr Drug Dosing Est GFR ( Amer) Est GFR (Non-Af Amer) BUN/Creatinine Ratio Glucose POC Glucose 107 H Calcium (1) HTN (hypertension) Hypertension type: essential hypertension Qualified Code(s): I10 - Essential (primary) hypertension (2) HLD (hyperlipidemia) Hyperlipidemia type: pure hypercholesterolemia Qualified Code(s): E78.00 - Pure hypercholesterolemia, unspecified; E78.0 - Pure hypercholesterolemia (3) T2DM (type 2 diabetes mellitus) Diabetes mellitus vermin exterminator insulin use: without vermin exterminator use
[2019-01-13 11:58] VITALS: PULSE 64
--- NOTE | 2019-01-13 14:35 | Discharge Summary ---
Date of Service January 13, 2019 Admission HPI Per Admitting Provider This is a 78-year-old white female who has a significant PMH of CAD with history of MONTSE to RCA in 2000, aortic valve replacement, PAF not on oral anticoagulation secondary to GI bleed, chronic diastolic heart failure, HTN, HLD, pulmonary arterial hypertension, LAINE on CPAP, T2DM, anemia who presents to [facility] secondary to chest pain for several hours. Patient states she was lying in her recliner when she developed substernal chest pain that radiated to right shoulder. Pain was constant, rated 9 out of 10, described as "soreness," improved with emesis x2, made worse with movement. Has had similar symptoms in past but does not recall what transpired at that time. Is unsure if this feels similar to her prior episode of unstable angina back in 2000. Further elicits to dizziness, shortness of breath, nausea. She called EMS and received sublingual nitro spray in route which alleviated symptoms. Currently she feels much improved from prior to arrival. She denies any recent illness fever, chills, sweats, lightheadedness, palpitations, abdominal pain, diarrhea, change in bowel or urinary habits. Her appetite has been okay and she denies any significant weight gain. She feels her baseline weight is about 233 and she weighs herself daily. She denies eating anything out of the ordinary. Denies history of acid reflux so unsure if it feels similar. No recent lifting pushing or pulling. She saw her crystal slicer ANDREA on 12/30 secondary to chest pain with occ SL nitro use who recommended nuclear stress test and echo. She didn't take any of her medications or nitro this a.m. She did not eat or drink anything either. In ED upon arrival patient was noted to be hypertensive 200/89. She received IV fentanyl. Her initial troponin and EKG was WNL. Her H&H was stable at 11.1 33.9, BUN/creatinine 17/1.13, LFT and lipase WNL. Chest x-ray revealed cardiomegaly but no acute abnormality. Given her significant cardiac history she was recommended for admission. Principal Diagnosis Unstable Angina S/P Cath x 2 with PCI Discharge Exam Constitutional well developed and well nourished; no acute distress and not ill appearing Eyes + anicteric sclerae ENMT Ears: no hearing impairment Neck normal visual inspection and trachea midline Respiratory normal respiratory effort, lungs clear to auscultation Cardiovascular Rate/Rhythm: regular rate and regular rhythm Gastrointestinal (Abdomen) Inspection/Auscultation: normal bowel sounds Percussion/Palpation: abdomen soft; abdomen nontender Musculoskeletal Head/Neck/Chest: normocephalic and head atraumatic Extremities: + wrist abnormality (mild improving ecchymosis at cath insertion site without bleeding) Right Skin no rashes, warm and dry (other than mentioned in MS section) Neurologic moves all extremities Psychiatric A+Ox3, euthymic affect Discharge Data Allergies Allergy/AdvReac Type Severity Reaction Status Date / Time Cephalosporins Allergy Mild Unknown Verified 01/06/19 06:49 hydrocodone Allergy Mild Unknown Verified 01/06/19 06:49 neomycin Allergy Mild Unknown Verified 01/06/19 06:49 propoxyphene Allergy Mild Unknown Verified 01/06/19 06:49 doxycycline Allergy Unknown UNKNOWN Verified 01/06/19 06:49 Sulfa (Sulfonamide Allergy Unknown Unknown Verified 01/06/19 06:49 Antibiotics) Consultations 01/06/19 06:49 ED Decision to Admit Stat 01/06/19 09:20 Consult Cardiology Routine 01/07/19 08:50 Consult Cardiac Catheterization Routine 01/07/19 11:50 Consult Cardiac Rehabilitation Routine Procedures Performed Operation Date: 01/07/19 09:15 Actual Procedures p Cath, Coronaries ONLY (no LV) - Aj Vargas DO s Cineradiography w/Routine Exam - Aj Vargas DO s Drug Eluting Stent SGl Vessel - Malvin Huerta MD s IVUS Coronary Single Vessel - Malvin Huerta MD Operation Date: 01/08/19 11:30 <No data on this case meets the specified criteria> Operation Date: 01/11/19 09:30 Actual Procedures s Cineradiography w/Routine Exam - Malvin Huerta MD s IVUS Coronary Single Vessel - Malvin Huerta MD s Fraction Flow Sunbright SGL Ves - Malvin Huerta MD s POBA SGL Vessel - Malvin Huerta MD p Drug Eluting Stent SGl Vessel - Malvin Huerta MD Ordered Studies 01/06/19 09:41 US abdomen limited Stat 01/07/19 09:08 CL Cath Imgs for PACS use only Urgent 01/07/19 13:01 CL IVUS Coronary Single Vessel Routine 01/09/19 17:07 US venous doppler UE RT Routine 01/11/19 12:33 CL Cath Imgs for PACS use only Routine 01/11/19 14:33 CL IVUS Coronary Single Vessel Routine Hospital Course (1) Unstable angina pectoris: - Echo showed EF 55-60%, mild LVH. - Cardiac cath 01/07/19 -- drug eluting stent x 2 to proximal and mid right coronary artery; cath on 01/11 with PCI to proximal mid-LAD across bifurcation of 2nd diagonal - Continue Coreg 6.25 mg BID, Diltiazem 180 mg daily, Imdur 120 mg BID, Pravastatin 80 mg daily, Aspirin 81 mg daily, Plavix 75 mg daily (continue DAPT for minimum of 6 months) - Presence of mild hematoma a cath site without vascular compromise and is improving; Tylenol PRN - Cardiology followed - [facility]ventional[facility] - has F/U appointments in coming weeks (2) CAD (coronary artery disease): - H/O cath with placement of MONTSE to RCA in 2000; Cath in 2012 - Continue cardiac meds (see above) (3) PAF (paroxysmal atrial fibrillation): - Has been in [facility] 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 - Not currently on anticoagulation due to H/O GI bleeding requiring 8 units PRBC in the past (4) H/O aortic valve replacement: - Stable, will monitor (5) HTN (hypertension): - Continue home Coreg, Diltiazem, Lasix as prescribed. (6) HLD (hyperlipidemia): - Continue statin as prescribed. (7) Chronic diastolic heart failure: - TTE showed EF 55-60%, basal septum is thickened, mild LVH. - Monitor net I/O's and daily weights; currently compensated at this time - Continue cardiac medications; Lasix 40 mg BID (8) T2DM (type 2 diabetes mellitus): - Hemoglobin A1C was 6.4 - Continue Januvia (9) CKD (chronic kidney disease) stage 3, GFR 30-59 ml/min: - STABLE; avoid nephrotoxins and renal dosing for medications (10) Anemia: - Hemoglobin ~9-11 at baseline; does have H/O GI bleed - Ferrous sulfate 325 mg daily. (11) GERD (gastroesophageal reflux disease): - PPI BID and H2RA daily. (12) LAINE on CPAP: - CPAP HS (13) Depression: - Continue Lexapro 5 mg daily (14) Morbid obesity: - BMI 40 - encourage weight loss and exercise. Total Time Total Time Spent Total Time Spent (In Minutes): Greater than 30 minutes Discharge Plan Discharge Items Patient Disposition: Home - Self-Care Reason For Visit: chest pain Discharge Diagnosis: Chest Pain with Heart Vessel Disease with Stent Discharge Goals: Decrease discomfort, Improve disease control, Increase independence and Prevent disease Activity: As commented below Non-emergency contact: Primary Care Provider Call non-emergency contact if: you have any medication questions, your symptoms worsen and you have a fever Follow-up/Referrals: Cricket Bradford MD [Physician] - 01/18/19 10:00 am (Please, follow up at [facility] with Dr. Bradford on FridayJanuary 18 at 10:00 am. *If you need to change this appointment, call the office at [phone].) Malvin Huerta MD [Physician] - 01/21/19 2:30 pm (Please, follow up at [facility] Office with Dr. Huerta on January 21 at 2:30 pm. *The office is located in [address] of [facility]. This is the big [facility]. If you need to change this appointment, call the office at [phone].) Diet: Carb Consistent or DM2 and Heart Healthy Addtl Provider Instructions: Chest Pain with Stent Placement: - You had two cardiac catheterizations during this admission with multiple stents placed in the blood vessels of the heart. - Due to having new heart stents you will need to be on dual antiplatelet therapy for the next 6 months. This will be aspirin 81 mg daily and Plavix 75 mg daily. - You will continue your Coreg, Diltiazem, Imdur, and Pravastatin as previously prescribed - Please follow the directions given for limitations with your right arm while it recovers from the procedure. You developed a small hematoma (bruising/pocket of blood) and each day this should feel a little bit better but you want to rest the arm. You can place a pillow under the arm to give a little elevation. You can use a little bit of ice to help swelling or discomfort. As well, you can use Tylenol as needed for discomfort. T2DM (type 2 diabetes mellitus): - Hemoglobin A1C was 6.4 which is fantastic. - Continue your normal diabetes medications at home Prescriptions: New clopidogrel 75 mg Tablet 75 mg PO QAM 30 Days Qty: 30 RF: 1 Continued carvedilol 6.25 mg tablet 6.25 mg PO BID RF: 0 albuterol sulfate 2.5 mg /3 mL (0.083 %) solution for nebulization 2.5 mg inhalation BID RF: 0 diltiazem HCl 180 mg capsule,extended release 24hr 180 mg PO DAILY RF: 0 famotidine 40 mg tablet 40 mg PO DAILY RF: 0 isosorbide mononitrate 120 mg tablet extended release 24 hr 120 mg PO BID RF: 0 pantoprazole 40 mg tablet,delayed release (DR/EC) 40 mg PO QAM RF: 0 nitroglycerin [Nitrostat] 0.4 mg tablet, sublingual 0.4 mg sublingual UD PRN (Reason: Chest Pain) RF: 0 furosemide 20 mg tablet 40 mg PO BID RF: 0 escitalopram oxalate 5 mg tablet 5 mg PO DAILY RF: 0 Januvia 100 mg tablet 100 mg PO DAILY RF: 0 Dulera 200-5 mcg/actuation HFA aerosol inhaler 2 puff inhalation BID RF: 0 multivitamin Tablet 1 tab PO DAILY RF: 0 aspirin 81 mg Tablet,Delayed Release (Dr/Ec) 81 mg PO DAILY RF: 0 pravastatin 80 mg tablet 80 mg PO DAILY RF: 0 ferrous sulfate 325 mg (65 mg iron) Tablet 325 mg PO DAILY RF: 0 docusate sodium 100 mg Capsule 100 mg PO HS RF: 0 albuterol sulfate [Ventolin HFA] 90 mcg/actuation HFA aerosol inhaler 2 - 4 puff inhalation Q4 PRN (Reason: sob,wheeze,cough) RF: 0 coenzyme Q10 100 mg Tablet 100 mg PO QPM RF: 0 potassium chloride 20 mEq Tablet Extended Release 20 meq PO QAM RF: 0 magnesium oxide 400 mg magnesium Tablet 400 mg PO DAILY RF: 0 diclofenac sodium 1 % Gel 1 applic TOPICAL QID RF: 0 Stand-Alone Forms: Call Back Authorization, [facility] Discharge Orders: Discharge Order (Routine); Ordered 01/13/19 Ordered By: Randee Lowe Admission Data Admit Date/Time: 01/07/19 10:22 Attending Provider: Lux Rocha Admit Provider: Ramona Gonzalez Primary Care Provider: Hilaria Myers Other Providers: Nadir Cottrell ; Kvng Marquez ; Ramona Gonzalez ; Aj Vargas Service: Telemetry Other Interventions: Discharge Summary Assessment (RN) Last Done: 01/13/19 12:13 Pending Studies at Discharge: No DC Date/Time DO NOT enter until pt leaves facility: 01/13/19 12:00 Supervising Physician Co-Signing Physician Notes Attending note: patient seen and examined with Randee Lowe PA-C. I agree with her discharge summary. Patient feeling well, no chest pain, right wrist swelling nearly gone. - Chest pain: heart cath, intervention performed to the LAD continue DAPT no chest pain after procedure - Right wrist hematoma complication from catheterization resolved prior to d/c
--- NOTE | 2019-01-18 07:07 | Coding Query ---
CODING QUERY To promote full compliance with coding requirements relating to patient care, provider participation is requested in all cases of inspection and testing supervisor uncertainty. Please assist us with the question(s) below: Coding Question(s): Patient admitted with CAD/unstable angina. Developed a postcardiac cathetereization hematoma . Please check below the statement that describes the hematoma. Thanks for your help! HERMES Reyes [facility] Physician's Response(s): The post cardiac catheterization hematoma is an expected occurrence The post cardiac catheterization hematoma is a complication of this procedure ____x____ Cannot correlate if the post cardiac catheterization hematoma is an expected occurrence or complication Other: please document: Principal Diagnosis: "that condition established after study, to be chiefly responsible for occasioning the admission of the patient to the hospital for care." Co-Existing Principal Diagnosis: "when two or more diagnoses equally meet the criteria for principal diagnosis as determined by the circumstances of admission, diagnostic work up, and/or therapy provided, and the Alphabetic Index, Tabular List, or another coding guideline does not provide sequencing direction, any one of the diagnoses may be sequenced first." "When the physician has documented what appears to be a current diagnosis in the body of the record, but has not included the diagnosis in the final diagnostic statement, the physician should be asked whether the diagnosis should be added." ([facility] 2 QTR90. p3-4) DHARMESH
== END 2019-01-13 12:00 | disposition home or self-care (01) | DRG 247 ==
LOC: 2W 05:47 → ED 05:47 → SUATTDRO 08:35 → 2E 01-07 11:48
PROC: CLB.CCO (2019-01-07 09:15)

== ENCOUNTER 2019-07-19 14:34 | Inpatient (IN) ==
--- NOTE | 2019-07-19 15:17 | XRay Report ---
XR chest 1V portable HISTORY: Atypical Chest Pain COMPARISON: Chest 01/16/2019. FINDINGS: The heart remains mildly enlarged. There are poststernotomy changes. A few bibasilar linear densities favor scarring or subsegmental atelectasis. This is similar to the prior study. No new foc al lung consolidations to suggest pneumonia. No evidence for pulmonary edema. There are low lung volu mes. IMPRESSION: No significant change compared to the prior study. No acute process. Electronically signed by: Kevin Del Rio M.D. 07/19/2019 3:16 PM
[2019-07-19 15:23] LABS: Basophils # (auto) 0.01 K/uL (0-0.2); Basophils % (auto) 0.1 %; Eosinophils # (auto) 0.27 K/uL (0-0.5); Eosinophils % (auto) 2.7 %; Hematocrit (blood only) 36.9 % (37-47); Immature Granulocytes # (auto) 0.04 K/uL (0.00-0.02); Immature Granulocytes % (auto) 0.4 %; Lymphocytes # (auto) 1.42 K/uL (1.2-3.4); Lymphocytes % (auto) 14.3 %; Mean Corpuscular Hemoglobin 32.7 pg (25-34); Mean Corpuscular Hgb Conc 32.5 g/dL (32-36); Mean Corpuscular Volume 100.5 fL (80-100); Monocytes # (auto) 0.87 K/uL (0.11-0.59); Monocytes % (auto) 8.8 %; Neutrophils # (auto) 7.33 K/uL (1.4-6.5); Neutrophils % (auto) 73.7 %; Platelet Count 210 K/uL (130-400); RDW Coefficient of Variation 14.1 % (11.5-14.5); RDW Standard Deviation 51.1 fL (36.4-46.3); Red Blood Count 3.67 M/uL (4.2-5.4); White Blood Count 9.94 K/uL (4.8-10.8)
[2019-07-19 15:43] LABS: Prothrombin Time 10.4 Seconds (9.0-12.0)
[2019-07-19 15:46] LABS: BUN Creatinine Ratio 17.6 (10-20); Calcium 9.3 mg/dl (8.5-10.1); Creatinine Clr Calc Pharmacy 34.8 ml/min; Est GFR (African American) 37.1; Magnesium 2.5 mg/dl (1.8-2.4); Potassium 3.2 mmol/L (3.5-5.1)
[2019-07-19 15:52] LABS: Albumin Globulin Ratio 0.7 (0.9-2); Bilirubin,Total 0.4 mg/dl (0.2-1); Globulin 4.5 gm/dl (2.5-4.0); Phosphorus 2.9 mg/dl (2.5-4.9); Total Protein 7.5 gm/dl (6.4-8.2); Troponin I 0.035 ng/ml (0-0.045)
[2019-07-19] MEDS ORDERED: ALBUT/IPRATROP 3MG/0.5MG NEB 3 ML VIAL NEB STA ×2 (16:06→17:41)
--- NOTE | 2019-07-19 17:18 | CT Scan Report ---
HEAD CT NONCONTRAST CT DOSE: 729.78 mGycm HISTORY: Dizziness. pain fall TECHNIQUE: Multiaxial CT images of the head were performed without the use of intravenous contrast. A utomated exposure control was utilized for this study. A dose lowering technique was utilized adheri ng to the principles of ALARA. Comparison: Head CT 01/20/2013. Findings: Stable chronic complete opacification of the right frontal sinus. Nasal septal perforation, unchanged. The left mastoid air cells are clear. Partial opacification of the right mastoid air cell s which is new from the prior study. The calvarium and skull base are intact. There is no mass, hemat venkatesh, midline shift, acute infarct. White matter hypodensity is nonspecific but suggestive of microvas cular ischemic change. The ventricles and sulci demonstrate mild age-related involutional changes. Impression: 1. No acute intracranial abnormality. 2. Right mastoid effusion which is new from the prior study. No bony destruction. 3. Chronic right frontal sinus opacification. Electronically signed by: Kevin Del Rio M.D. 07/19/2019 5:17 PM
[2019-07-19] MEDS ORDERED: DEXAMETHASONE SOD PHOSPHATE 10 MG in SYRINGE 0 ML IV STA (17:41)
[2019-07-19] MEDS ORDERED: SODIUM CHLORIDE 0.9% 500 ML IV ONE (17:41)
--- NOTE | 2019-07-19 17:47 | History & Physical Report ---
Date of Service July 19, 2019 Assessment & Plan (1) Generalized weakness: (2) Recurrent falls: -Admit to [facility] with telemetry -PT/OT, case management to assist with discharge planning as she will likely need rehab as she lives at home alone and has frequent falls as often as daily. -Consider 2D echo, patient denies any sort of dizziness, lightheadedness or vasovagal-like prodrome prior to these falls. -Continue Plavix and aspirin for now (3) CAD (coronary artery disease): - Will place on tele overnight due to chest discomfort - Initial troponin 0.035, will trend x1 more set 0, appears to slightly be elevated at baseline (4) Ischemic heart disease: (5) History of aortic valve replacement: - noted (6) A-fib: -Currently in sinus rhythm, continue carvedilol 25 mg BID, diltiazem 180 daily, Imdur 120 mg BID, and torsemide 20 mg daily (7) COPD with hypoxia: -Wears 2-3 L O2 at all times, CPAP at bedtime -Cough x3 days, sputum culture if produces expectorant -Continue Ventolin -Continue duo nebs QID and Q2H prn, has received 2 treatments in the ER -No need for steroid at this time, recently finished prednisone 30 mg BID x 5d course. Pt received dexamethasone 10 mg IV in the ER. No wheeze on exam. -No antibiotics at this time, afebrile, WBC = 9.94 -Check influenza PCR now -Check procalcitonin (8) Diabetes mellitus: -Last A1c was 6.4 in December 2018, recheck with a.m. labs -Continue Januvia -ISS with Accu-Cheks ACHS (9) Hypokalemia: -3.2 on admission, replace via p.o. (10) Morbid obesity with BMI of 40.0-44.9, adult: - Diet and exercise to be encouraged upon d/c - Pt does not participate in physical activity routinely, PT/OT consults. (11) DVT prophylaxis: -teds, plavix, asa CODE: Full code Disposition: Patient from home, lives alone, CM to assist with discharge planning, PT/OT, patient will require acute rehab stay vs home health History of Present Illness Primary Care Provider: TITO Mejia This is an 79-year-old female with PMHx of CAD, A. fib, HTN, HLD, ischemic heart disease, history of aortic valve replacement, COPD, DM type II, GERD, Salazar's esophagus, hypokalemia, recurrent falls who presents with increased falls and pain. She reports that she has fallen nearly every day for the past 2 weeks. She feels her strength is not at her baseline. She is currently lives at home alone, and uses a walker or cane at all times. She denies any hypotensive prodrome prior to her falls, no lightheadedness or dizziness, and just slumps down towards the ground when she falls. Denies any injury to the head, loss of consciousness, or other traumatic injury. She also notes 3 days of cough and congestion where she recently finished a prednisone taper. She reports reports feeling a chest tightness with cough, no sputum production. She has a nebulizer at home but has not used it. She denies chest pain, palpitations, headache. CT the head is negative for acute findings other than right mastoid effusion which is new, there is right sinus opacification which appears to be chronic. No white count, afebrile. Creatinine = 1.52, slightly increased compared to baseline of 1.2-1.3. Allergies Allergy/AdvReac Type Severity Reaction Status Date / Time aspirin Allergy Unknown Unknown Verified 07/19/19 15:55 cefuroxime [From Ceftin] Allergy Unknown Unknown Verified 07/19/19 15:55 Cephalosporins Allergy Unknown Unknown Verified 07/19/19 15:55 doxycycline Allergy Unknown UNKNOWN Verified 07/19/19 15:55 hydrocodone Allergy Unknown Unknown Verified 07/19/19 15:55 neomycin Allergy Unknown Unknown Verified 07/19/19 15:55 propoxyphene Allergy Unknown Unknown Verified 07/19/19 15:55 Sulfa (Sulfonamide Allergy Unknown Unknown Verified 07/19/19 15:55 Antibiotics) metformin AdvReac Mild nausea Verified 07/19/19 15:55 vicodin tabs Allergy Unknown Uncoded 07/19/19 15:55 Home Medications Home Medications Medication Instructions Recorded Confirmed Type nitroglycerin [Nitrostat] 0.4 mg SUBLINGUAL DIRECTED PRN 01/06/19 07/19/19 History clopidogrel 75 mg tablet 75 mg PO DAILY #30 tab 03/19/19 07/19/19 Rx aspirin 81 mg tablet,delayed 81 mg PO DAILY #90 tab 04/22/19 07/19/19 Rx release coenzyme Q10 100 mg tablet 100 mg PO QPM #30 tab 04/22/19 07/19/19 Rx cyanocobalamin (vitamin B-12) 100 100 mcg PO DAILY #90 tab 04/22/19 07/19/19 Rx mcg tablet famotidine 40 mg tablet 40 mg PO QAM #90 tab 04/22/19 07/19/19 Rx ferrous sulfate 325 mg (65 mg 325 mg PO HS #90 tab 04/22/19 07/19/19 Rx iron) tablet magnesium oxide 400 mg (as 400 mg PO QAM #30 tab 04/22/19 07/19/19 Rx magnesium oxide) tablet mometasone-formoterol HFA 200 2 puff INHALATION BID #13 gm 04/22/19 07/19/19 Rx mcg-5 mcg/actuation aerosol inhaler multivitamin 1 tab PO QAM #60 tab 04/22/19 07/19/19 Rx pantoprazole 40 mg tablet,delayed 40 mg PO DAILY #90 tab 04/22/19 07/19/19 Rx release potassium chloride 20 mEq 20 meq PO DAILY #90 tab 04/22/19 07/19/19 Rx tablet,extended release pravastatin 80 mg tablet 80 mg PO QAM #90 tab 04/22/19 07/19/19 Rx prednisone 20 mg tablet 30 mg PO BID 5 Days #15 tab 07/08/19 07/19/19 Rx Januvia 100 mg PO DAILY 07/19/19 07/19/19 History albuterol sulfate 2.5 mg INHALATION Q4 PRN 07/19/19 07/19/19 History albuterol sulfate [Ventolin HFA] 2 puff INHALATION Q4H PRN 07/19/19 07/19/19 History carvedilol [Coreg] 25 mg PO BID 07/19/19 07/19/19 History diltiazem HCl [Cardizem CD] 180 mg PO DAILY 07/19/19 07/19/19 History escitalopram oxalate 5 mg PO DAILY 07/19/19 07/19/19 History isosorbide mononitrate 120 mg PO BID 07/19/19 07/19/19 History torsemide 20 mg PO DAILY 07/19/19 07/19/19 History Past Med/Surg History Medical History (Updated 07/19/19 @ 18:41 by Jackie Rodriguez PA-C) Anemia Anxiety Arteriosclerotic cardiovascular disease Salazar's esophagus (Acute) CAD (coronary artery disease) (Chronic) CHF (congestive heart failure) (08/04/13) Chronic back pain CKD (chronic kidney disease) stage 3, GFR 30-59 ml/min COPD with hypoxia (Acute) Degeneration of cervical intervertebral disc Degenerative arthritis of knee (Acute) Diabetes mellitus (Chronic) Disc degeneration, lumbar (Acute) Generalized weakness GERD (gastroesophageal reflux disease) GI bleed HLD (hyperlipidemia) HTN (hypertension) Hypokalemia (Acute) On anticoagulant therapy plavix daily On home oxygen therapy 3L at all times LAINE on CPAP PAF (paroxysmal atrial fibrillation) Pulmonary hypertension, secondary Recurrent falls (Chronic) Renal insufficiency, mild T2DM (type 2 diabetes mellitus) Surgical History H/O aortic valve replacement @ [facility] [place] History of cardiac cath 08/2013 Last cardiac cath demonstrated 2 vessel nonobstructive disease including mild LAD with 40% stenosis in proximal RCA with 40% stenosis and widely patent mid RCA stent. Medical management recommended at time. History of cardiac cath 01/07/2019 coronary angiography, 2 drug eluting stent placed 01/11/19 1 drug eluting stent placed----on plavix History of colonoscopy with polypectomy History of esophagogastroduodenoscopy (EGD) Hiatal hernia and Salazar's History of partial colectomy Secondary to obstruction History of percutaneous coronary intervention 05/24/2011 cardiac cath demonstrated severe single-vessel CAD with 70% mild RCA stenosis treated with PCI using MONTSE History of tooth extraction all teeth removed History of total hysterectomy with bilateral salpingo-oophorectomy (BSO) Family History Sister Cancer Breast cancer Myocardial infarction Brother Myocardial infarction Other Adopted Unknown family medical history Social History Preferred Language: Nepalese Communication Ability: Effective 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 Beliefs That Will Affect Care: Mormonism Current Living Situation: Alone current occupational status: retired Other Information That Helps Us Care for You: No Feels Safe at Home: Yes Safety Concerns: Feels Safe At This Time Smoking Status: Never smoker Second Hand Exposure: Yes ( smoked) ; Hx Alcohol Use: No Hx Substance Use: No caffeine: Yes Dental Care, Regularly: No Physical Activity Frequency: Does not Exercise Seatbelt Use: always Sunscreen Use: No Review of Systems Review of Systems: Constitutional: No fever, sweats or chills Eyes: No diplopia, no worsening or blurred vision ENT: normal hearing, no trouble swallowing Respiratory: + chronic cough, no sputum, no dyspnea at rest, wears 2-3L at all times, + cpap HS Cardiovascular: No chest pain, + tightness, no palpitations Abdomen: No pain, nausea, vomiting, diarrhea or constipation Musculoskeletal: No joint pain, calf pain, + chronic swelling Neurologic: + generalized weakness,no numbness/tingling, + balance problems with daily fall episodes Psychiatric: No anxiety or depression Skin: No rash or itch Physical Exam Physical Exam: General: awake, alert, no apparent distress, + morbidly obese Head: Normocephalic, atraumatic ENT: PERRL, EOMI, no pharyngeal exudate, mucous membranes moist Chest: Difficult to auscultate due to body habitus, + wearing nebulizer treatment, no adventitious breath sounds Cardiac: Regular rate and rhythm, few PVCs, no murmurs, no JVD, normal peripheral pulses, good capillary refill Abdominal: NABS x 4 quadrants, soft, nondistended, nontender to palpation, no rebound, guarding or tenderness Extremities: +multiple areas of ecchymosis over extremities, no peripheral edema or erythema, calfs nontender to palpation Psych: Normal mood and affect Neuro: AAO x 3, no gross motor deficits, speech is clear, no peripheral sensory deficits Constitutional: WD/WN, vitals as above Eyes: normal visual nance by confrontation and + anicteric sclerae Neck: normal visual inspection and trachea midline Respiratory: normal respiratory effort, lungs clear to auscultation Cardiovascular: Rate/Rhythm: regular rate and regular rhythm Gastrointestinal (Abdomen): Inspection/Auscultation: abdomen not distended Percussion/Palpation: abdomen soft; abdomen nontender Musculoskeletal: Head/Neck/Chest: normocephalic and head atraumatic Neg for peripheral LE edema, + pedal pulses Skin: no rashes, warm and dry Neurologic: awake; not confused Speech / Cognition: normal speech Psychiatric: A+Ox3, euthymic affect Lymphatic: Exam as done by Germaine Collazo DO Results & Data Vital Signs (Past 12 Hours) Vital Signs Temp Pulse Pulse Resp BP Pulse Ox 07/19/19 17:30 67 20 183/81 H 100 07/19/19 17:11 70 18 100 07/19/19 16:32 67 21 167/80 H 99 07/19/19 16:31 66 14 98 07/19/19 16:30 67 17 98 07/19/19 16:00 64 21 149/87 H 99 07/19/19 15:44 69 16 157/82 H 99 07/19/19 15:30 65 17 100 07/19/19 15:22 67 19 100 07/19/19 15:00 66 16 155/88 H 99 07/19/19 14:57 100 07/19/19 14:35 36.7 C 65 22 164/89 H [address] NONCONTRAST CT DOSE: 729.78 mGycm HISTORY: Dizziness. pain fall TECHNIQUE: Multiaxial CT images of the head were performed without the use of intravenous contrast. Automated exposure control was utilized for this study. A dose lowering technique was utilized adhering to the principles of ALARA. Comparison: Head CT 01/20/2013. Findings: Stable chronic complete opacification of the right frontal sinus. Nasal septal perforation, unchanged. The left mastoid air cells are clear. Partial opacification of the right mastoid air cells which is new from the prior study. The calvarium and skull base are intact. There is no mass, hematoma, midline shift, acute infarct. White matter hypodensity is nonspecific but suggestive of microvascular ischemic change. The ventricles and sulci demonstrate mild age-related involutional changes. Impression: 1. No acute intracranial abnormality. 2. Right mastoid effusion which is new from the prior study. No bony destruction. 3. Chronic right frontal sinus opacification. XR chest 1V portable HISTORY: Atypical Chest Pain COMPARISON: Chest 01/16/2019. FINDINGS: The heart remains mildly enlarged. There are poststernotomy changes. A few bibasilar linear densities favor scarring or subsegmental atelectasis. This is similar to the prior study. No new focal lung consolidations to suggest pneumonia. No evidence for pulmonary edema. There are low lung volumes. IMPRESSION: No significant change compared to the prior study. No acute process. ECG Additional Comments: 19-JUL-2019 17:37:34 [facility]-EDSTAT ROUTINE RETRIEVAL Sinus rhythm with marked sinus arrhythmia with occasional Premature ventricular complexes Minimal voltage criteria for LVH, may be normal variant Nonspecific T wave abnormality Prolonged QT Abnormal ECG When compared with ECG of 19-JUL-2019 14:47, (unconfirmed) Premature supraventricular complexes are no longer Present 25mm/s 10mm/mV 150Hz 9.0.9 12SL 241 MARYJO: 10 Referred by: REFERRED SELF Unconfirmed Vent. rate 66 BPM AR interval 174 ms QRS duration 80 ms QT/QTc 468/490 ms P-R-T axes 65 36 87 Code Status & VTE Plan Code Status Full code-discussed with the patient at bedside Supervising Physician Co-Signing Physician Notes Pt seen and examined by me. Has been falling daily due to LE feeling too weak to hold her and she loses her balance. No syncope or pre-syncope. Has not hit her head as she can tell this is happening and slowly lowers herself to whatever is nearby. Has been having a cough with chest tightness, but no delaney chest pain. Just finished a steroid taper two days ago. No delaney SOB. Tolerating PO without issue. Agree with HPI/ROS as noted by PA See above for my exam in PE section Agree with plan as outlined above Mild hypoK, replace and monitor CT head with ?? sinusitis Trop at 0.035, with hx of similar--repeat x1 PT/OT for possible rehab--pt is hesitant about rehab, but she does live alone Cath 01/14/19 with stent placed, aspirin 81mg/plavix PG Care Time/CCT Total # of Minutes Spent Total Time Spent with Patient: Total time spent is greater than 50% in coordination of care (as documented) at patient's floor/unit and/or counseling patient:
[2019-07-19] MEDS ORDERED: GLUCAGON FOR INJ 1 MG VIAL SQ PRN (18:05)
[2019-07-19] MEDS ORDERED: ONDANSETRON INJ 2 MG/ML 2 ML VIAL IV PRN (18:05)
[2019-07-19] MEDS ORDERED: ACETAMINOPHEN 325 MG TAB PO PRN (18:05)
[2019-07-19] MEDS ORDERED: CARBOHYDRATES FOR HYPOGLYCEMIA PO PRN (18:05)
[2019-07-19] MEDS ORDERED: DEXTROSE 50% 50 ML SYRINGE IV PRN (18:05)
[2019-07-19] MEDS ORDERED: GLUCOSE 10 TABS/TUBE PO PRN (18:05)
[2019-07-19] MEDS ORDERED: GLUCOSE 40% GEL 15 GM TUBE PO PRN (18:05)
[2019-07-19] MEDS ORDERED: DEXAMETHASONE **PF** INJ 10 MG/ML VIAL ONE (18:11)
--- NOTE | 2019-07-19 18:19 | Emergency Department Note ---
Entered by Belle Wilburn acting as a scribe for Anthony Cisneros MD History of Present Illness General Chief complaint: Chest Pain Time Seen by Provider: 07/19/19 14:51 Source: patient and RN notes reviewed History of Present Illness Onset (ago): hour(s) (earlier this morning ) Location: chest Pain Consistency: + other (episode) Maximum Pain Intensity: 5 Quality: + other (shortness of breath) Associated symptoms: + nausea/vomiting and + other (-back pain; -head pain) The patient is an 79 year old female who presents to the Emergency Room with complaints of an episode of shortness of breath that began following a fall that occurred earlier this morning. The patient states she fell upon walking back from the bathroom at her home. The patient states she just went down and landed on her bottom. The patient states she had to crawl to the couch to then be able to pull herself back up. The RN notes the patient has fallen multiple times over the past few weeks. The patient denies hitting her head in todays fall episode or in any prior fall episode, as she states she always lands on her bottom. However, the patient states she has experienced nausea and vomiting along with the shortness of breath since the fall this morning. The patient denies back pain or head pain. The patient notes she is on a water pill, but the patient states she does not feel that she has gained any water weight recently. The patient reports she on 3 L of oxygen at home due to history of CHF. The patient denies being on any blood thinners. Home Medications Home Medications Medication Instructions Recorded Confirmed Type nitroglycerin [Nitrostat] 0.4 mg SUBLINGUAL DIRECTED PRN 01/06/19 07/19/19 History clopidogrel 75 mg tablet 75 mg PO DAILY #30 tab 03/19/19 07/19/19 Rx aspirin 81 mg tablet,delayed 81 mg PO DAILY #90 tab 04/22/19 07/19/19 Rx release coenzyme Q10 100 mg tablet 100 mg PO QPM #30 tab 04/22/19 07/19/19 Rx cyanocobalamin (vitamin B-12) 100 100 mcg PO DAILY #90 tab 04/22/19 07/19/19 Rx mcg tablet famotidine 40 mg tablet 40 mg PO QAM #90 tab 04/22/19 07/19/19 Rx ferrous sulfate 325 mg (65 mg 325 mg PO HS #90 tab 04/22/19 07/19/19 Rx iron) tablet magnesium oxide 400 mg (as 400 mg PO QAM #30 tab 04/22/19 07/19/19 Rx magnesium oxide) tablet mometasone-formoterol HFA 200 2 puff INHALATION BID #13 gm 04/22/19 07/19/19 Rx mcg-5 mcg/actuation aerosol inhaler multivitamin 1 tab PO QAM #60 tab 04/22/19 07/19/19 Rx pantoprazole 40 mg tablet,delayed 40 mg PO DAILY #90 tab 04/22/19 07/19/19 Rx release potassium chloride 20 mEq 20 meq PO DAILY #90 tab 04/22/19 07/19/19 Rx tablet,extended release pravastatin 80 mg tablet 80 mg PO QAM #90 tab 04/22/19 07/19/19 Rx prednisone 20 mg tablet 30 mg PO BID 5 Days #15 tab 07/08/19 07/19/19 Rx Januvia 100 mg PO DAILY 07/19/19 07/19/19 History albuterol sulfate 2.5 mg INHALATION Q4 PRN 07/19/19 07/19/19 History albuterol sulfate [Ventolin HFA] 2 puff INHALATION Q4H PRN 07/19/19 07/19/19 History carvedilol [Coreg] 25 mg PO BID 07/19/19 07/19/19 History diltiazem HCl [Cardizem CD] 180 mg PO DAILY 07/19/19 07/19/19 History escitalopram oxalate 5 mg PO DAILY 07/19/19 07/19/19 History isosorbide mononitrate 120 mg PO BID 07/19/19 07/19/19 History torsemide 20 mg PO DAILY 07/19/19 07/19/19 History Allergies Allergy/AdvReac Type Severity Reaction Status Date / Time aspirin Allergy Unknown Unknown Verified 07/19/19 15:55 cefuroxime [From Ceftin] Allergy Unknown Unknown Verified 07/19/19 15:55 Cephalosporins Allergy Unknown Unknown Verified 07/19/19 15:55 doxycycline Allergy Unknown UNKNOWN Verified 07/19/19 15:55 hydrocodone Allergy Unknown Unknown Verified 07/19/19 15:55 neomycin Allergy Unknown Unknown Verified 07/19/19 15:55 propoxyphene Allergy Unknown Unknown Verified 07/19/19 15:55 Sulfa (Sulfonamide Allergy Unknown Unknown Verified 07/19/19 15:55 Antibiotics) metformin AdvReac Mild nausea Verified 07/19/19 15:55 vicodin tabs Allergy Unknown Uncoded 07/19/19 15:55 Past Med/Surg History Medical History Anemia Anxiety Arteriosclerotic cardiovascular disease Salazar's esophagus (Acute) CAD (coronary artery disease) (Chronic) CHF (congestive heart failure) (08/04/13) Chronic back pain CKD (chronic kidney disease) stage 3, GFR 30-59 ml/min COPD with hypoxia (Acute) Degeneration of cervical intervertebral disc Degenerative arthritis of knee (Acute) Diabetes mellitus (Chronic) Disc degeneration, lumbar (Acute) Generalized weakness GERD (gastroesophageal reflux disease) GI bleed HLD (hyperlipidemia) HTN (hypertension) Hypokalemia (Acute) On anticoagulant therapy plavix daily On home oxygen therapy 3L at all times LAINE on CPAP PAF (paroxysmal atrial fibrillation) Pulmonary hypertension, secondary Recurrent falls (Chronic) Renal insufficiency, mild T2DM (type 2 diabetes mellitus) Surgical History H/O aortic valve replacement @ [facility] [place] History of cardiac cath 08/2013 Last cardiac cath demonstrated 2 vessel nonobstructive disease including mild LAD with 40% stenosis in proximal RCA with 40% stenosis and widely patent mid RCA stent. Medical management recommended at time. History of cardiac cath 01/07/2019 coronary angiography, 2 drug eluting stent placed 01/11/19 1 drug eluting stent placed----on plavix History of colonoscopy with polypectomy History of esophagogastroduodenoscopy (EGD) Hiatal hernia and Salazar's History of partial colectomy Secondary to obstruction History of percutaneous coronary intervention 05/24/2011 cardiac cath demonstrated severe single-vessel CAD with 70% mild RCA stenosis treated with PCI using MONTSE History of tooth extraction all teeth removed History of total hysterectomy with bilateral salpingo-oophorectomy (BSO) Family History Sister Cancer Breast cancer Myocardial infarction Brother Myocardial infarction Other Adopted Unknown family medical history Social History Preferred Language: Luxembourgish Communication Ability: Effective [employer] Required: No Beliefs That Will Affect Care: Anabaptist Current Living Situation: Alone current occupational status: retired Other Information That Helps Us Care for You: No Feels Safe at Home: Yes Safety Concerns: Feels Safe At This Time Smoking Status: Never smoker Second Hand Exposure: Yes ( smoked) ; Hx Alcohol Use: No Hx Substance Use: No caffeine: Yes Dental Care, Regularly: No Physical Activity Frequency: Does not Exercise Seatbelt Use: always Sunscreen Use: No Review of Systems See HPI for pertinent positives & negatives. and A total of 10 systems reviewed and were otherwise negative Physical Exam Vital Signs Vital Signs - 24 hr 07/19/19 14:35 07/19/19 14:57 07/19/19 15:00 Temperature 36.7 C Temperature Source Oral Pulse Rate 65 66 Pulse Rate [Left Finger] Pulse Rate from SpO2 Sensor 65 Pulse Rhythm Regular Pulse Strength Normal Respiratory Rate 22 16 Respiratory Effort / Characteristics Non-Labored Spontaneous Respiratory Depth Normal Respiratory Pattern Regular Blood Pressure 164/89 H 155/88 H Blood Pressure Mean 114 133 Blood Pressure Position Lying Pulse Oximetry 100 100 99 Oxygen Delivery Method Nasal Cannula Nasal Cannula Oxygen Flow Rate 3 Sepsis Recent Fever Within 48 Hours No Sepsis New/Unexplained Change in Mental Status No Sepsis Action Taken by Nursing No Action Required 07/19/19 15:22 07/19/19 15:30 07/19/19 15:44 Temperature Temperature Source Pulse Rate 67 65 69 Pulse Rate [Left Finger] Pulse Rate from SpO2 Sensor 67 64 66 Pulse Rhythm Pulse Strength Respiratory Rate 19 17 16 Respiratory Effort / Characteristics Respiratory Depth Respiratory Pattern Blood Pressure 157/82 H Blood Pressure Mean 101 Blood Pressure Position Pulse Oximetry 100 100 99 Oxygen Delivery Method Oxygen Flow Rate Sepsis Recent Fever Within 48 Hours Sepsis New/Unexplained Change in Mental Status Sepsis Action Taken by Nursing 07/19/19 16:00 07/19/19 16:30 07/19/19 16:31 Temperature Temperature Source Pulse Rate 64 67 Pulse Rate [Left Finger] 66 Pulse Rate from SpO2 Sensor 61 59 L Pulse Rhythm Pulse Strength Respiratory Rate 21 17 14 Respiratory Effort / Characteristics Non-Labored Spontaneous Respiratory Depth Respiratory Pattern Blood Pressure 149/87 H Blood Pressure Mean 116 Blood Pressure Position Pulse Oximetry 99 98 98 Oxygen Delivery Method Nasal Cannula Oxygen Flow Rate 2 Sepsis Recent Fever Within 48 Hours Sepsis New/Unexplained Change in Mental Status Sepsis Action Taken by Nursing 07/19/19 16:32 07/19/19 17:11 07/19/19 17:30 Temperature Temperature Source Pulse Rate 67 70 67 Pulse Rate [Left Finger] Pulse Rate from SpO2 Sensor 63 67 61 Pulse Rhythm Pulse Strength Respiratory Rate 21 18 20 Respiratory Effort / Characteristics Respiratory Depth Respiratory Pattern Blood Pressure 167/80 H 183/81 H Blood Pressure Mean 110 136 Blood Pressure Position Pulse Oximetry 99 100 100 Oxygen Delivery Method Oxygen Flow Rate Sepsis Recent Fever Within 48 Hours Sepsis New/Unexplained Change in Mental Status Sepsis Action Taken by Nursing 07/19/19 17:54 07/19/19 18:00 07/19/19 18:02 Temperature Temperature Source Pulse Rate 69 76 Pulse Rate [Left Finger] 73 Pulse Rate from SpO2 Sensor 69 Pulse Rhythm Pulse Strength Respiratory Rate 22 22 19 Respiratory Effort / Characteristics Spontaneous Respiratory Depth Respiratory Pattern Blood Pressure 173/65 H Blood Pressure Mean 116 Blood Pressure Position Pulse Oximetry 99 99 Oxygen Delivery Method Nasal Cannula Nasal Cannula Nasal Cannula Oxygen Flow Rate 3 3 3 Sepsis Recent Fever Within 48 Hours Sepsis New/Unexplained Change in Mental Status Sepsis Action Taken by Nursing GENERAL: Awake, alert, chronically ill-appearing, in no distress HENT: Normocephalic, atraumatic. Oropharynx with dry mucous membranes and otherwise unremarkable. EYES: Normal conjunctiva. Sclera non-icteric. NECK: Supple. No nuchal rigidity. FROM. No JVD. RESPIRATORY: Scant intermittent wheezes. Diminished breath sounds at bases. CARDIAC: Regular rate, normal rhythm. Extremities warm and well perfused. Pulses equal. ABDOMEN: Soft, non-distended. No tenderness to palpation. No rebound or guarding. No masses. RECTAL: Deferred. MUSCULOSKELETAL: Chest examination reveals no tenderness. The back is symmetrical on inspection without obvious abnormality. There is no CVA tenderness to palpation. No joint edema. LOWER EXTREMITIES: Calves are equal size bilaterally and non-tender. No edema. No discoloration. NEURO: Normal sensorium. No sensory or motor deficits noted. SKIN: No rash or jaundice noted. Course Course 1540: Past medical records reviewed. The patient was evaluated in room C12A. A complete history and physical exam was performed. 1721: A repeat ECG was ordered due to poor initial reading. 1743: I discussed the patient's case with Dr. Collazo-Hospitalist [facility]. Dr. Collazo will further evaluate the patient. Consultations Consultation #1: I discussed the patient's case with Dr. Collazo-Hospitalist [facility]. Dr. Collazo will further evaluate the patient. Time: 17:43 Administered Medications Albuterol (Duoneb) 3 ml NEB QIDR ROCHELLE Stop: 08/18/19 19:55 Last Admin: 07/19/19 20:20 Dose: 3 ml Documented by: [id number] Carvedilol (Coreg) 25 mg PO BID ROCHELLE Stop: 08/18/19 20:59 Last Admin: 07/19/19 21:06 Dose: 25 mg Documented by: [id number] Ferrous Sulfate (Feosol) 325 mg PO HS ROCHELLE Stop: 08/18/19 20:59 Last Admin: 07/19/19 21:07 Dose: 325 mg Documented by: [id number] Insulin Aspart (Novolog Flexpen) 0 units SC ACHS ROCHELLE Stop: 08/18/19 20:59 Last Admin: 07/19/19 21:09 Dose: 4 units Documented by: [id number] Cosigned by: [id number] Isosorbide Mononitrate (Imdur Extended Rel) 120 mg PO BID ROCHELLE Stop: 08/18/19 20:59 Last Admin: 07/19/19 21:08 Dose: 120 mg Documented by: [id number] Prednisone (Prednisone) 30 mg PO BID ROCHELLE Stop: 08/18/19 20:59 Last Admin: 07/19/19 21:07 Dose: 30 mg Documented by: [id number] Discontinued Medications Albuterol (Duoneb) 3 ml NEB NOW STA Stop: 07/19/19 16:07 Last Admin: 07/19/19 16:31 Dose: 3 ml Documented by: [id number] Albuterol (Duoneb) 3 ml NEB NOW STA Stop: 07/19/19 17:42 Last Admin: 07/19/19 17:54 Dose: 3 ml Documented by: [id number] Dexamethasone Sodium Phosphate (Decadron Pf) Confirm Administered Dose 10 mg .ROUTE .STK-MED ONE Stop: 07/19/19 18:12 Last Admin: 07/19/19 18:17 Dose: 10 mg Documented by: [id number] Sodium Chloride (Nss) 500 mls @ 999 mls/hr IV .Q31M ONE Stop: 07/19/19 18:11 Last Infusion: 07/19/19 19:00 Dose: 0 mls/hr Documented by: [id number] Admin: 07/19/19 18:17 Dose: 999 mls/hr Documented by: [id number] Dexamethasone Sodium Phosphate (10 mg/ Syringe) 2.5 mls @ 1 mls/min IV NOW STA Stop: 07/19/19 17:43 Last Admin: 07/19/19 18:17 Dose: Not Given Documented by: [id number] Potassium Chloride (Klor-Con M20) 40 meq PO NOW STA Stop: 07/19/19 18:40 Last Admin: 07/19/19 22:02 Dose: 40 meq Documented by: [id number] Medical Decision Making Differential Diagnosis Differential diagnosis: Etiologies such as infections, reactive airway disease, pneumonia, pneumothorax, COPD, CHF, cardiac ischemia, pulmonary embolism, musculoskeletal, gastrointestinal, as well as others were entertained. Medical Records Attestation: I reviewed the patient's medical records. The patient had a stent placed on January 11, 2019. Home Medications Current Medication List: was personally reviewed by me Laboratory Data Attestation: I reviewed the patient's lab results. Result diagrams: 07/19/19 14:46 07/19/19 14:46 Lab Results 07/19/19 07/19/19 07/19/19 Range/Units 14:46 14:46 14:46 WBC 9.94 (4.8-10.8) K/uL RBC 3.67 L (4.2-5.4) M/uL Hgb 12.0 (12.0-16.0) g/dL Hct 36.9 L (37-47) % MCV 100.5 H (80-100) fL MCH 32.7 (25-34) pg MCHC 32.5 (32-36) g/dL RDW Std Deviation 51.1 H (36.4-46.3) fL RDW Coeff of Albert 14.1 (11.5-14.5) % Plt Count 210 (130-400) K/uL MPV 11.0 H (7.4-10.4) fL Immature Gran % (Auto) 0.4 % Neut % (Auto) 73.7 % Lymph % (Auto) 14.3 % Wheeler % (Auto) 8.8 % Eos % (Auto) 2.7 % Baso % (Auto) 0.1 % Immature Gran # (Auto) 0.04 H (0.00-0.02) K/uL Neut # (Auto) 7.33 H (1.4-6.5) K/uL Lymph # (Auto) 1.42 (1.2-3.4) K/uL Wheeler # (Auto) 0.87 H (0.11-0.59) K/uL Eos # (Auto) 0.27 (0-0.5) K/uL Baso # (Auto) 0.01 (0-0.2) K/uL PT 10.4 (9.0-12.0) Seconds INR 1.0 (0.9-1.1) Sodium 137 (136-145) mmol/L Potassium 3.2 L (3.5-5.1) mmol/L Chloride 96 L (98-107) mmol/L Carbon Dioxide 34 H (21-32) mmol/L Anion Gap 7.0 (3-11) BUN 27 H (7-18) mg/dl Creatinine 1.52 H (0.6-1.2) mg/dl Est Cr Clr Drug Dosing 34.8 ml/min Est GFR ( Amer) 37.1 Est GFR (Non-Af Amer) 32.0 BUN/Creatinine Ratio 17.6 (10-20) Glucose 185 H (70-99) mg/dl Calcium 9.3 (8.5-10.1) mg/dl Phosphorus 2.9 (2.5-4.9) mg/dl Magnesium 2.5 H (1.8-2.4) mg/dl Total Bilirubin 0.4 (0.2-1) mg/dl AST 11 L (15-37) U/L ALT 15 (12-78) U/L Alkaline Phosphatase 69 (45-117) U/L Troponin I 0.035 (0-0.045) ng/ml NT-Pro-B Natriuret Pep 778 (0-1800) pg/ml Total Protein 7.5 (6.4-8.2) gm/dl Albumin 3.0 L (3.4-5.0) gm/dl Globulin 4.5 H (2.5-4.0) gm/dl Albumin/Globulin Ratio 0.7 L (0.9-2) Lipase 130 (73-393) U/L Procalcitonin (0-0.5) ng/ml 07/19/19 Range/Units 14:46 WBC (4.8-10.8) K/uL RBC (4.2-5.4) M/uL Hgb (12.0-16.0) g/dL Hct (37-47) % MCV (80-100) fL MCH (25-34) pg MCHC (32-36) g/dL RDW Std Deviation (36.4-46.3) fL RDW Coeff of Albert (11.5-14.5) % Plt Count (130-400) K/uL MPV (7.4-10.4) fL Immature Gran % (Auto) % Neut % (Auto) % Lymph % (Auto) % Wheeler % (Auto) % Eos % (Auto) % Baso % (Auto) % Immature Gran # (Auto) (0.00-0.02) K/uL Neut # (Auto) (1.4-6.5) K/uL Lymph # (Auto) (1.2-3.4) K/uL Wheeler # (Auto) (0.11-0.59) K/uL Eos # (Auto) (0-0.5) K/uL Baso # (Auto) (0-0.2) K/uL PT (9.0-12.0) Seconds INR (0.9-1.1) Sodium (136-145) mmol/L Potassium (3.5-5.1) mmol/L Chloride (98-107) mmol/L Carbon Dioxide (21-32) mmol/L Anion Gap (3-11) BUN (7-18) mg/dl Creatinine (0.6-1.2) mg/dl Est Cr Clr Drug Dosing ml/min Est GFR ( Amer) Est GFR (Non-Af Amer) BUN/Creatinine Ratio (10-20) Glucose (70-99) mg/dl Calcium (8.5-10.1) mg/dl Phosphorus (2.5-4.9) mg/dl Magnesium (1.8-2.4) mg/dl Total Bilirubin (0.2-1) mg/dl AST (15-37) U/L ALT (12-78) U/L Alkaline Phosphatase (45-117) U/L Troponin I (0-0.045) ng/ml NT-Pro-B Natriuret Pep (0-1800) pg/ml Total Protein (6.4-8.2) gm/dl Albumin (3.4-5.0) gm/dl Globulin (2.5-4.0) gm/dl Albumin/Globulin Ratio (0.9-2) Lipase (73-393) U/L Procalcitonin < 0.05 (0-0.5) ng/ml Imaging Data Radiologist's Impression: Radiology results as stated below per my review and the radiologist's interpretation: XR chest 1V portable HISTORY: Atypical Chest Pain COMPARISON: Chest 01/16/2019. FINDINGS: The heart remains mildly enlarged. There are poststernotomy changes. A few bibasilar linear densities favor scarring or subsegmental atelectasis. This is similar to the prior study. No new focal lung consolidations to suggest pneumonia. No evidence for pulmonary edema. There are low lung volumes. IMPRESSION: No significant change compared to the prior study. No acute process. Electronically signed by: Kevin Del Rio M.D. 07/19/2019 3:[address] NONCONTRAST CT DOSE: 729.78 mGycm HISTORY: Dizziness. pain fall TECHNIQUE: Multiaxial CT images of the head were performed without the use of intravenous contrast. Automated exposure control was utilized for this study. A dose lowering technique was utilized adhering to the principles of ALARA. Comparison: Head CT 01/20/2013. Findings: Stable chronic complete opacification of the right frontal sinus. Nasal septal perforation, unchanged. The left mastoid air cells are clear. P artial opacification of the right mastoid air cells which is new from the prior study. The calvarium and skull base are intact. There is no mass, hematoma, midline shift, acute infarct. White matter hypodensity is nonspecific but suggestive of microvascular ischemic change. The ventricles and sulci demonstrate mild age-related involutional changes. Impression: 1. No acute intracranial abnormality. 2. Right mastoid effusion which is new from the prior study. No bony destruction. 3. Chronic right frontal sinus opacification. ECG Data Attestation: I personally reviewed and interpreted this ECG as follows: Indication: + SOB/dyspnea Rate (beats per minute): 65 Rhythm: + sinus rhythm ECG Findings: + PVCs (occasional) and + Other (LVH, QTC 463; Baseline artifiact ) Additional Comments: REPEAT ECG: Sinus rhythm with sinus arrhythmia. Rate of 66. Occasional PVC. LVH. Non-specific T-wave abnormalities. No overt acute ischemia. QTC 490, which increased from 470 on 01/18/19. QRS 80. Overall, similar to ECG from 01/18/19. Blood Pressure Blood Pressure Findings: Elevated blood pressure Blood Pressure Disposition: further management by hospitalist MDM Narrative The patient is a pleasant 79-year-old woman with a past medical history of COPD, recurrent falls CAD with history of MONTSE to RCA in 2000, aortic valve replacement, PAF not on oral anticoagulation secondary to GI bleed, chronic diastolic heart failure, HTN, HLD, pulmonary arterial hypertension, LAINE on CPAP, T2DM, anemia who presents emergency department with worsening shortness of breath over the past week with generalized weakness with recurrent falls with her walker where she feels generalized weakness and is unable to ambulate or stand per hpi. On arrival patient is chronically ill-appearing but no acute distress, afebrile stable vital signs. On exam patient has a scant intermittent wheeze but is otherwise clear. EKG without overt acute ischemia. It is similar to prior. Her QTC is slightly more prolonged than prior. Chest x-ray negative for pneumonia. CT head negative for ICH. Interval mastoid effusion of unclear significance. No mastoid tenderness, erythema, or edema on exam. WBC within normal limits. Hemoglobin and platelets within normal limits. Chemistry without acidosis. Creatinine 1.5 similar to prior range of values in the setting of patient's CKD. Troponin 0.035, within normal limits. BNP within normal limits. Patient did report some improvement after DuoNeb. Thus, possible component of bronchospasm/bronchitis. Additionally given the patient's generalized weakness with recurrent falls reasonable to admit the patient for further management and PT eval. Patient is agreeable with admission though says she would not be interested in rehab. Case was discussed with Dr. Germaine Collazo, [facility] hospitalist will evaluate the patient for admission. Impression & Plan Breath shortness, Generalized weakness, Bronchitis, CKD (chronic kidney disease) Discharge Plan Visit Data *Final* Discharge Date/Time: 07/19/19 18:46 Chief Complaint: Chest Pain ED Provider: Anthony Cisneros Discharge Problem: Breath shortness, Generalized weakness, Bronchitis, CKD (chronic kidney disease) Patient Disposition: Admitted As Inpatient Discharge Instructions Interventions: ED Discharge Assessment Last Done: 07/19/19 18:46 The scribe's documentation has been prepared under my direction and personally reviewed by me in its entirety. I confirm that the note above accurately reflects all work, treatment, procedures, and medical decision making performed by me.
[2019-07-19] MEDS ORDERED: POTASSIUM CHLORIDE 20 MEQ TABCR PO STA (18:39)
[2019-07-19 19:45] LABS: Influenza A virus by PCR Neg for Influ A (Neg); Influenza B virus by PCR Neg for Influ B (Neg)
[2019-07-19] MEDS ORDERED: ALBUTEROL 0.083% NEBU SOLN 3 ML VIAL INH PRN (19:56)
[2019-07-19] MEDS ORDERED: ALBUTEROL HFA 8 GM INHALER INH PRN (19:56)
[2019-07-19] MEDS ORDERED: NITROGLYCERIN SL 0.4 MG/TAB TAB SL PRN (19:56)
[2019-07-19] MEDS: ALBUT/IPRATROP 3MG/0.5MG NEB 3 ML VIAL NEB SCH (20:20)
[2019-07-19] MEDS ORDERED: NON-FORMULARY MEDICATION (Mometasone-Formoterol [Dulera] 2 PUFFS) INH SCH (21:00)
[2019-07-19] MEDS ORDERED: NON-FORMULARY MEDICATION (Coenzyme Q10 100 MG) PO SCH (21:00)
[2019-07-19] MEDS: carvediloL 25 MG TAB PO SCH (21:06)
[2019-07-19] MEDS: FERROUS SULFATE 325 MG TAB PO SCH (21:07)
[2019-07-19] MEDS: predniSONE 10 MG TABLET PO SCH (21:07)
[2019-07-19] MEDS: ISOSORBIDE MONO EXTENDED REL 60 MG TABCR PO SCH (21:08)
[2019-07-19] MEDS: INSULIN ASPART 100 UNITS/ML 3 ML PEN SC SCH (21:09)
[2019-07-20] MEDS: ALBUT/IPRATROP 3MG/0.5MG NEB 3 ML VIAL NEB SCH ×4 (07:08→19:48)
[2019-07-20] MEDS ORDERED: PNEUMOCOCCAL ADMINISTRATION CHARGE ONE (08:00)
[2019-07-20] MEDS ORDERED: PNEUMOCOCCAL POLYSACCHARIDES 25 MCG/0.5 ML VIAL/SYR IM ONE (08:00)
[2019-07-20] MEDS: INSULIN ASPART 100 UNITS/ML 3 ML PEN SC SCH ×4 (08:19→20:53)
[2019-07-20] MEDS: ISOSORBIDE MONO EXTENDED REL 60 MG TABCR PO SCH ×2 (08:22→20:51)
[2019-07-20] MEDS: carvediloL 25 MG TAB PO SCH ×2 (08:22→20:51)
[2019-07-20] MEDS: predniSONE 10 MG TABLET PO SCH ×2 (08:23→20:51)
[2019-07-20] MEDS: POTASSIUM CHLORIDE 20 MEQ TABCR PO SCH (08:23)
[2019-07-20] MEDS: dilTIAZem HCL 180 MG CAPCR PO SCH (08:24)
[2019-07-20] MEDS: CLOPIDOGREL BISULFATE 75 MG TAB PO SCH (08:24)
[2019-07-20] MEDS: SITAGLIPTIN PHOSPHATE 25 MG TAB PO SCH (08:24)
[2019-07-20] MEDS: FAMOTIDINE 20 MG TAB PO SCH (08:24)
[2019-07-20] MEDS: ESCITALOPRAM OXALATE 10 MG TAB PO SCH (08:25)
[2019-07-20] MEDS: TORSEMIDE 20 MG TAB PO SCH (08:25)
[2019-07-20] MEDS: PANTOprazole 40 MG TAB PO SCH (08:26)
[2019-07-20] MEDS: MULTIVITAMIN TAB PO SCH (08:26)
[2019-07-20] MEDS: CYANOCOBALAMIN (VITAMIN B-12) 100 MCG TABLET PO SCH (08:26)
[2019-07-20] MEDS: ASPIRIN 81 MG ECTAB PO SCH (08:26)
[2019-07-20] MEDS: PRAVASTATIN SOD 40 MG TAB PO SCH (08:27)
[2019-07-20] MEDS: MAGNESIUM OXIDE 400 MG TAB PO SCH (08:27)
[2019-07-20] MEDS: FLUTICASONE/SALMETEROL 100/50 (ADVAIR) 14 PUFF/1 INHALER INH SCH ×2 (08:28→20:47)
--- NOTE | 2019-07-20 18:55 | Hospitalist Progress Note ---
Date of Service July 20, 2019 Assessment & Plan (1) Generalized weakness: (2) Recurrent falls: -Continue admit to [facility] with telemetry -PT/OT, case management to assist with discharge planning as she will likely need rehab as she lives at home alone and has frequent falls as often as daily. -TTE pending 2D echo -Continue Plavix and aspirin for now (3) CAD (coronary artery disease): - Will place on tele overnight due to chest discomfort - Initial troponin 0.035, will trend x1 more set 2130, appears to slightly be elevated at baseline (4) Ischemic heart disease: (5) History of aortic valve replacement: - noted (6) A-fib: -Currently in sinus rhythm, continue carvedilol 25 mg BID, diltiazem 180 daily, Imdur 120 mg BID, and torsemide 20 mg daily (7) COPD with hypoxia: -Wears 2-3 L O2 at all times, CPAP at bedtime -Cough x3 days, sputum culture if produces expectorant -Continue Ventolin -Continue duo nebs QID and Q2H prn, has received 2 treatments in the ER -No need for steroid at this time, recently finished prednisone 30 mg BID x 5d course. Pt received dexamethasone 10 mg IV in the ER. No wheeze on exam. -No antibiotics at this time, afebrile, WBC = 9.94 -Check influenza PCR now -Check procalcitonin (8) Diabetes mellitus: -Last A1c was 6.4 in December 2018, recheck with a.m. labs -Continue Januvia -ISS with Accu-Cheks ACHS (9) Hypokalemia: -3.2 on admission, replace via p.o. (10) Morbid obesity with BMI of 40.0-44.9, adult: - Diet and exercise to be encouraged upon d/c - Pt does not participate in physical activity routinely, PT/OT consults. (11) DVT prophylaxis: -teds, plavix, asa CODE: Full code Disposition: Patient from home, lives alone, to assist with discharge planning, PT/OT, patient will require acute rehab stay vs home health Subjective Patient seen and examined at the bedside. No acute event overnight. She is afebrile. She denies any chest pain this morning, she said she had chest pain yesterday nitroglycerin helped. Her troponins are negative so far. Patient denies fever, chills, chest pain, shortness of breath, abdominal pain, frequency, urgency, hematemesis, dysuria, hematuria. P.o. intake is good. Review of Systems Review of Systems: All systems reviewed & are unremarkable except as noted in HPI & below Physical Exam Constitutional: WD/WN, vitals as above Eyes: normal visual nance by confrontation and + anicteric sclerae Neck: normal visual inspection and trachea midline Respiratory: normal respiratory effort, lungs clear to auscultation Cardiovascular: Rate/Rhythm: regular rate and regular rhythm Gastrointestinal (Abdomen): Inspection/Auscultation: abdomen not distended Percussion/Palpation: abdomen soft; abdomen nontender Musculoskeletal: Head/Neck/Chest: normocephalic and head atraumatic Skin: no rashes, warm and dry Neurologic: awake; not confused Speech / Cognition: normal speech Psychiatric: A+Ox3, euthymic affect Results & Data Vital Signs (Past 12 Hours) Vital Signs Temp Pulse Pulse Resp BP BP Pulse Ox 07/20/19 16:00 56 L 07/20/19 15:43 36.7 C 59 L 16 153/92 H 95 07/20/19 15:09 81 19 96 07/20/19 11:15 63 18 98 07/20/19 11:00 36.8 C 63 20 122/75 97 07/20/19 08:00 69 07/20/19 07:08 66 16 98 07/20/19 07:00 36.2 C L 66 20 159/94 H 96 PG Care Time/CCT Total # of Minutes Spent Total Time Spent with Patient: Total time spent is greater than 50% in coordination of care (as documented) at patient's floor/unit and/or counseling patient:
[2019-07-20] MEDS: FERROUS SULFATE 325 MG TAB PO SCH (20:50)
[2019-07-21] MEDS: ALBUT/IPRATROP 3MG/0.5MG NEB 3 ML VIAL NEB SCH ×4 (07:16→19:07)
[2019-07-21 07:30] LABS: Hematocrit (blood only) 30.5 % (37-47); Hemoglobin 10.2 g/dL (12.0-16.0); Mean Corpuscular Hemoglobin 32.5 pg (25-34); Mean Corpuscular Hgb Conc 33.4 g/dL (32-36); Mean Corpuscular Volume 97.1 fL (80-100); Mean Platelet Volume 10.7 fL (7.4-10.4); Platelet Count 165 K/uL (130-400); RDW Coefficient of Variation 14.1 % (11.5-14.5); RDW Standard Deviation 49.8 fL (36.4-46.3); Red Blood Count 3.14 M/uL (4.2-5.4); White Blood Count 10.92 K/uL (4.8-10.8)
[2019-07-21] MEDS: ESCITALOPRAM OXALATE 10 MG TAB PO SCH (07:48)
[2019-07-21] MEDS: predniSONE 10 MG TABLET PO SCH ×2 (07:48→20:28)
[2019-07-21] MEDS: PANTOprazole 40 MG TAB PO SCH (07:48)
[2019-07-21] MEDS: MULTIVITAMIN TAB PO SCH (07:48)
[2019-07-21] MEDS: carvediloL 25 MG TAB PO SCH ×2 (07:48→20:27)
[2019-07-21] MEDS: MAGNESIUM OXIDE 400 MG TAB PO SCH (07:48)
[2019-07-21] MEDS: FLUTICASONE/SALMETEROL 100/50 (ADVAIR) 14 PUFF/1 INHALER INH SCH ×2 (07:48→20:26)
[2019-07-21] MEDS: ISOSORBIDE MONO EXTENDED REL 60 MG TABCR PO SCH ×2 (07:48→20:26)
[2019-07-21] MEDS: CLOPIDOGREL BISULFATE 75 MG TAB PO SCH (07:49)
[2019-07-21] MEDS: PRAVASTATIN SOD 40 MG TAB PO SCH (07:49)
[2019-07-21] MEDS: ASPIRIN 81 MG ECTAB PO SCH (07:49)
[2019-07-21] MEDS: CYANOCOBALAMIN (VITAMIN B-12) 100 MCG TABLET PO SCH (07:49)
[2019-07-21] MEDS: TORSEMIDE 20 MG TAB PO SCH (07:49)
[2019-07-21] MEDS: POTASSIUM CHLORIDE 20 MEQ TABCR PO SCH (07:49)
[2019-07-21] MEDS: SITAGLIPTIN PHOSPHATE 25 MG TAB PO SCH (07:49)
[2019-07-21] MEDS: dilTIAZem HCL 180 MG CAPCR PO SCH (07:50)
[2019-07-21] MEDS: FAMOTIDINE 20 MG TAB PO SCH (07:50)
[2019-07-21 08:06] LABS: Albumin Level 2.8 gm/dl (3.4-5.0); BUN Creatinine Ratio 27.7 (10-20); Calcium 8.8 mg/dl (8.5-10.1); Creatinine Clr Calc Pharmacy 29.8 ml/min; Est GFR (African American) 30.5; Est GFR (Non-African American) 26.3; Potassium 4.2 mmol/L (3.5-5.1)
[2019-07-21 08:20] LABS: Albumin Globulin Ratio 0.8 (0.9-2); Bilirubin,Total 0.4 mg/dl (0.2-1); Globulin 3.7 gm/dl (2.5-4.0); Total Protein 6.5 gm/dl (6.4-8.2)
[2019-07-21 08:52] LABS: Estimated Average Glucose 151 mg/dl; Hemoglobin A1C 6.9 % (4.5-5.6)
[2019-07-21] MEDS: INSULIN ASPART 100 UNITS/ML 3 ML PEN SC SCH ×4 (08:57→20:29)
--- NOTE | 2019-07-21 09:53 | Hospitalist Progress Note ---
Date of Service July 21, 2019 Assessment & Plan (1) Generalized weakness: (2) Recurrent falls: -Continue admit to [facility] with telemetry -Dobutamine stress test in AM for intermittent chest pain. -PT/OT, case management to assist with discharge planning as she will likely need rehab as she lives at home alone and has frequent falls as often as daily. -TTE pending 2D echo -Continue Plavix and aspirin for now (3) CAD (coronary artery disease): - Will place on tele overnight due to chest discomfort - Initial troponin 0.035 trended down. (4) Ischemic heart disease: (5) History of aortic valve replacement: - noted (6) A-fib: -Currently in sinus rhythm, continue carvedilol 25 mg BID, diltiazem 180 daily, Imdur 120 mg BID, and torsemide 20 mg daily (7) COPD with hypoxia: -Wears 2-3 L O2 at all times, CPAP at bedtime -Cough x3 days, sputum culture if produces expectorant -Continue Ventolin -Continue duo nebs QID and Q2H prn, has received 2 treatments in the ER -No need for steroid at this time, recently finished prednisone 30 mg BID x 5d course. Pt received dexamethasone 10 mg IV in the ER. No wheeze on exam. -No antibiotics at this time, afebrile, WBC = 9.94 -Check influenza PCR now -Check procalcitonin (8) Diabetes mellitus: -Last A1c was 6.4 in December 2018, recheck with a.m. labs -Continue Januvia -ISS with Accu-Cheks ACHS (9) Hypokalemia: -3.2 on admission, replace via p.o. (10) Morbid obesity with BMI of 40.0-44.9, adult: - Diet and exercise to be encouraged upon d/c - Pt does not participate in physical activity routinely, PT/OT consults. (11) DVT prophylaxis: -teds, plavix, asa CODE: Full code Disposition: Patient from home, lives alone, to assist with discharge planning, PT/OT, patient will require acute rehab stay vs home health Subjective Patient seen and examined at the bedside. No acute event overnight. She is afebrile. She denies any chest pain this morning, she said she had chest pain yesterday nitroglycerin helped. Her troponins are negative so far. Patient denies fever, chills, chest pain, shortness of breath, abdominal pain, frequency, urgency, hematemesis, dysuria, hematuria. P.o. intake is good. Review of Systems Review of Systems: Constitutional: No fever, sweats or chills Eyes: No diplopia, no worsening or blurred vision ENT: normal hearing, no trouble swallowing Respiratory: + chronic cough, no sputum, no dyspnea at rest, wears 2-3L at all times, + cpap HS Cardiovascular: No chest pain, + tightness, no palpitations Abdomen: No pain, nausea, vomiting, diarrhea or constipation Musculoskeletal: No joint pain, calf pain, + chronic swelling Neurologic: + generalized weakness,no numbness/tingling, + balance problems with daily fall episodes Psychiatric: No anxiety or depression Skin: No rash or itch Physical Exam Constitutional: WD/WN, vitals as above Eyes: normal visual nance by confrontation and + anicteric sclerae Neck: normal visual inspection and trachea midline Respiratory: normal respiratory effort, lungs clear to auscultation Cardiovascular: Rate/Rhythm: regular rate and regular rhythm Gastrointestinal (Abdomen): Inspection/Auscultation: abdomen not distended Percussion/Palpation: abdomen soft; abdomen nontender Musculoskeletal: Head/Neck/Chest: normocephalic and head atraumatic Skin: no rashes, warm and dry Neurologic: awake; not confused Speech / Cognition: normal speech Psychiatric: A+Ox3, euthymic affect Results & Data Vital Signs (Past 12 Hours) Vital Signs Temp Pulse Pulse Resp BP Pulse Ox 07/21/19 08:00 59 L 07/21/19 07:45 36.6 C 60 20 168/72 H 96 07/21/19 07:17 67 18 98 07/21/19 03:48 36.5 C 57 L 18 139/72 96 07/21/19 01:35 66 07/20/19 23:48 36.3 C L 58 L 18 140/68 99 07/20/19 22:32 61 18 98 PG Care Time/CCT Total # of Minutes Spent Total Time Spent with Patient: Total time spent is greater than 50% in coordination of care (as documented) at patient's floor/unit and/or counseling patient:
[2019-07-21] MEDS: FERROUS SULFATE 325 MG TAB PO SCH (20:26)
[2019-07-22] MEDS: ALBUT/IPRATROP 3MG/0.5MG NEB 3 ML VIAL NEB SCH ×4 (07:02→19:20)
--- NOTE | 2019-07-22 08:40 | Cardiology Consultation ---
Date of Consultation July 22, 2019 Assessment & Plan (1) Generalized weakness: etiology uncertain regarding recent falls. recommend PT/OT and possible rehab No associate dizziness/syncope/near syncope (2) Chest pain: Episode of substernal chest pressure 3 days prior to admission No chest pain since admission EKG without acute changes Echo with normal LV systolic function Cardiac enzymes negative Dobutamine not advised due to history of paroxysmal atrial fibrillation Proceed with Nuclear lexiscan study. Patient NPO. (3) CAD (coronary artery disease): Proceed with nuclear lexiscan stress test to r/o ischemia Continue ASA, carvedilol, plavix, diltiazem, isosorbide, and statin (4) A-fib: diagnosed in 2018 with PAF. Started on Coumadin at that time. within several weeks she was admitted for severe GI bleed with hypovolemic shock. Anticoagulation contraindicated despite high CHADSVASC score Currently NSR Continue beta reynaldo, diltiazem and ASA (5) HTN (hypertension): Continue home medications. Case discussed with Dr. Kee. Further recommendations pending review of stress test results. Supervising Physician Co-Signing Physician Notes Patient seen and examined with Toya Rothman PA-C. Agree with findings and assessment as above. Currently the patient states that she is feeling well and that she has not had any recurrences of chest pain. Lexiscan nuclear stress test was nonischemic so we do not see any cardiac component to her chest pain at this time and believe is most likely musculoskeletal from her attempting to get out of the bathtub. So no further cardiac testing or intervention is necessary at this time. No medication changes will be made today and no cardiac follow-up is necessary at this time. History of Present Illness Reason for Consultation: chest pain; history of CAD Requesting Physician: Dr. Nowak Attending Physician: Dr. Kee History of Present Illness Patient is an 79-year-old female known to [facility] cardiology services for history of coronary artery disease, bioprosthetic aortic valve, and paroxysmal atrial fibrillation. She presented to [facility] emergency department with complaints of profound weakness and her legs giving out multiple times this past weekend. No significant injuries sustained. Upon admission and evaluation she admitted to substernal chest pressure occurring on Friday afternoon lasting for approximately 30 minutes and resolved with 2 sublingual nitro. No recurrence of her chest pain since that time. Patient was sitting in her recliner watching television at the onset of her chest pressure. She does admit to intermittent chest pressure occurring several times per month and resolving with one sublingual nitro. EKG on arrival demonstrated normal sinus rhythm without acute changes. Cardiac enzymes unremarkable. She has had no chest pain since admission. She was originally scheduled for a dobutamine stress echo this morning however given her history of paroxysmal atrial fibrillation, this test modality was canceled. She was recently treated for respiratory infection by PCP. SOB improved. At time of consult, patient feeling well. She ambulated in the hallways with physical therapy this morning without exertional complaints. Her weakness seems to have improved per patient. It is recommended that she go to rehab but she is hesitant. She currently has no cardiac complaints. History includes: December 2018 due to exertional chest pain, she underwent repeat Cardiac catheterization revealing multivessel disease. She subsequently underwent drug- eluting stent implantation x2 to the proximal and mid right coronary artery on 01/06/2019. Due to residual proximal and mid LAD stenosis she underwent repeat cardiac catheterization with staged intervention to the LAD with 1 drug-eluting stent placed on 01/11/2019. She has a history of minimally invasive surgical aortic valve replacement with placement of a 21 millimeter Jimbo-Abreu pericardial valve on 06/02/2008. In 2010, she underwent drug-eluting stent placement to the mid right coronary artery. In 2017 she was diagnosed with paroxysmal atrial fibrillation. She was started on Coumadin for anticoagulation as her QMD3DR4-LGDs was 6 suggesting high risk for cardioembolic stroke. Unfortunately she developed significant gastrointestinal bleeding I was hospitalized for hypovolemic shock and acute blood loss anemia. Coumadin was therefore discontinued. Colonoscopy revealed significant diverticuli throughout the colon. Allergies Allergy/AdvReac Type Severity Reaction Status Date / Time aspirin Allergy Unknown Unknown Verified 07/19/19 15:55 cefuroxime [From Ceftin] Allergy Unknown Unknown Verified 07/19/19 15:55 Cephalosporins Allergy Unknown Unknown Verified 07/19/19 15:55 doxycycline Allergy Unknown UNKNOWN Verified 07/19/19 15:55 hydrocodone Allergy Unknown Unknown Verified 07/19/19 15:55 neomycin Allergy Unknown Unknown Verified 07/19/19 15:55 propoxyphene Allergy Unknown Unknown Verified 07/19/19 15:55 Sulfa (Sulfonamide Allergy Unknown Unknown Verified 07/19/19 15:55 Antibiotics) metformin AdvReac Mild nausea Verified 07/19/19 15:55 vicodin tabs Allergy Unknown Uncoded 07/19/19 15:55 Home Medications Home Medications Medication Instructions Recorded Confirmed Type nitroglycerin [Nitrostat] 0.4 mg SUBLINGUAL DIRECTED PRN 01/06/19 07/19/19 History clopidogrel 75 mg tablet 75 mg PO DAILY #30 tab 03/19/19 07/19/19 Rx aspirin 81 mg tablet,delayed 81 mg PO DAILY #90 tab 04/22/19 07/19/19 Rx release coenzyme Q10 100 mg tablet 100 mg PO QPM #30 tab 04/22/19 07/19/19 Rx cyanocobalamin (vitamin B-12) 100 100 mcg PO DAILY #90 tab 04/22/19 07/19/19 Rx mcg tablet famotidine 40 mg tablet 40 mg PO QAM #90 tab 04/22/19 07/19/19 Rx ferrous sulfate 325 mg (65 mg 325 mg PO HS #90 tab 04/22/19 07/19/19 Rx iron) tablet magnesium oxide 400 mg (as 400 mg PO QAM #30 tab 04/22/19 07/19/19 Rx magnesium oxide) tablet mometasone-formoterol HFA 200 2 puff INHALATION BID #13 gm 04/22/19 07/19/19 Rx mcg-5 mcg/actuation aerosol inhaler multivitamin 1 tab PO QAM #60 tab 04/22/19 07/19/19 Rx pantoprazole 40 mg tablet,delayed 40 mg PO DAILY #90 tab 04/22/19 07/19/19 Rx release potassium chloride 20 mEq 20 meq PO DAILY #90 tab 04/22/19 07/19/19 Rx tablet,extended release pravastatin 80 mg tablet 80 mg PO QAM #90 tab 04/22/19 07/19/19 Rx prednisone 20 mg tablet 30 mg PO BID 5 Days #15 tab 07/08/19 07/19/19 Rx Januvia 100 mg PO DAILY 07/19/19 07/19/19 History albuterol sulfate 2.5 mg INHALATION Q4 PRN 07/19/19 07/19/19 History albuterol sulfate [Ventolin HFA] 2 puff INHALATION Q4H PRN 07/19/19 07/19/19 History carvedilol [Coreg] 25 mg PO BID 07/19/19 07/19/19 History diltiazem HCl [Cardizem CD] 180 mg PO DAILY 07/19/19 07/19/19 History escitalopram oxalate 5 mg PO DAILY 07/19/19 07/19/19 History isosorbide mononitrate 120 mg PO BID 07/19/19 07/19/19 History torsemide 20 mg PO DAILY 07/19/19 07/19/19 History Patient History Medical History Anemia Anxiety Arteriosclerotic cardiovascular disease Salazar's esophagus (Acute) CAD (coronary artery disease) (Chronic) CHF (congestive heart failure) (08/04/13) Chronic back pain CKD (chronic kidney disease) stage 3, GFR 30-59 ml/min COPD with hypoxia (Acute) Degeneration of cervical intervertebral disc Degenerative arthritis of knee (Acute) Diabetes mellitus (Chronic) Disc degeneration, lumbar (Acute) Generalized weakness GERD (gastroesophageal reflux disease) GI bleed HLD (hyperlipidemia) HTN (hypertension) Hypokalemia (Acute) On anticoagulant therapy plavix daily On home oxygen therapy 3L at all times LAINE on CPAP PAF (paroxysmal atrial fibrillation) Pulmonary hypertension, secondary Recurrent falls (Chronic) Renal insufficiency, mild T2DM (type 2 diabetes mellitus) Surgical History H/O aortic valve replacement @ [facility] [place] History of cardiac cath 08/2013 Last cardiac cath demonstrated 2 vessel nonobstructive disease including mild LAD with 40% stenosis in proximal RCA with 40% stenosis and widely patent mid RCA stent. Medical management recommended at time. History of cardiac cath 01/07/2019 coronary angiography, 2 drug eluting stent placed 01/11/19 1 drug eluting stent placed----on plavix History of colonoscopy with polypectomy History of esophagogastroduodenoscopy (EGD) Hiatal hernia and Salazar's History of partial colectomy Secondary to obstruction History of percutaneous coronary intervention 05/24/2011 cardiac cath demonstrated severe single-vessel CAD with 70% mild RCA stenosis treated with PCI using MONTSE History of tooth extraction all teeth removed History of total hysterectomy with bilateral salpingo-oophorectomy (BSO) Family History Sister Cancer Breast cancer Myocardial infarction Brother Myocardial infarction Other Adopted Unknown family medical history Social History Preferred Language: [place] Communication Ability: Effective Horticultural Therapist Required: No Beliefs That Will Affect Care: Religion marital status: / Current Living Situation: Alone current occupational status: retired Other Information That Helps Us Care for You: No Feels Safe at Home: Yes Safety Concerns: Feels Safe At This Time Smoking Status: Never smoker Second Hand Exposure: Yes ( smoked) ; Hx Alcohol Use: No Hx Substance Use: No caffeine: Yes Dental Care, Regularly: No Physical Activity Frequency: Does not Exercise Seatbelt Use: always Sunscreen Use: No Review of Systems Review of Systems: All systems reviewed & are unremarkable except as noted in HPI & below Physical Exam Constitutional: WD/WN, vitals as above well nourished and + obese; no acute distress Eyes: PERRL, conjunctivae normal, anicteric sclerae Neck: normal visual inspection Respiratory: normal respiratory effort, lungs clear to auscultation Cardiovascular: Rate/Rhythm: regular rate and regular rhythm Heart Sounds: + murmur (II/ systolic murmur) Vessels: no JVD Extremities: no edema Gastrointestinal (Abdomen): normal bowel sounds, soft, nontender, no hepatosplenomegaly Neurologic: PERRL, EOMI, accommodation nl, no face palsy, no dysarthria Psychiatric: A+Ox3, euthymic affect Results & Data Vital Signs (Past 12 Hours) Vital Signs Temp Pulse Pulse Resp BP BP Pulse Ox 07/22/19 07:03 77 20 98 07/22/19 03:58 36.6 C 63 18 162/82 H 98 07/22/19 00:30 59 L 07/21/19 23:00 36.6 C 61 19 143/72 H 98 Laboratory Results 07/22/19 07/21/19 07/21/19 Range/Units 07:30 20:25 16:46 POC Glucose 233 H 253 H 177 H (70-99) Estimat Average Glucose mg/dl Hemoglobin A1c (4.5-5.6) % 07/21/19 07/21/19 07/21/19 Range/Units 12:06 11:52 11:51 POC Glucose 273 H 270 H 309 H* (70-99) Estimat Average Glucose mg/dl Hemoglobin A1c (4.5-5.6) % 07/21/19 Range/Units 07:00 POC Glucose (70-99) Estimat Average Glucose 151 mg/dl Hemoglobin A1c 6.9 H (4.5-5.6) % Diagnostic Findings Telemetry reviewed: Normal sinus rhythm with occasional PVC. Chest x-ray report reviewed: No acute process Head CT report reviewed on admission: No acute process EKG on admission reviewed: Normal sinus rhythm with PVC, nonspecific ST-T wave abnormality, no significant change from previous. 2D echo report reviewed, completed this admission: Moderate concentric LVh LV systolic function is normal. Bioprosthetic aortic valve, normal function Moderate MAC RV systolic pressure is normal Compared to echo in 12/2018, no changes noted. Medications Administered Current Inpatient Medications Acetaminophen (Tylenol) 650 mg PO Q4H PRN PRN Reason: Moderate Pain Stop: 08/18/19 18:04 Albuterol (Ventolin 0.083% 2.5mg/3ml) 2.5 mg INH Q4 PRN PRN Reason: Wheezing or Tightness in Chest Stop: 08/18/19 19:55 Albuterol (Ventolin Hfa) 2 puffs INH Q4H PRN PRN Reason: Shortness Of Breath Or Wheezing Stop: 08/18/19 19:55 Albuterol (Duoneb) 3 ml NEB QIDR [facility] Stop: 08/18/19 19:55 Last Admin: 07/22/19 07:02 Dose: 3 ml Documented by: Aspirin (Ecotrin Ectab) 81 mg PO DAILY [facility] Stop: 08/19/19 08:59 Last Admin: 07/21/19 07:49 Dose: 81 mg Documented by: Carvedilol (Coreg) 25 mg PO BID [facility] Stop: 08/18/19 20:59 Last Admin: 07/21/19 20:27 Dose: 25 mg Documented by: Clopidogrel Bisulfate (Plavix) 75 mg PO DAILY [facility] Stop: 08/19/19 08:59 Last Admin: 07/21/19 07:49 Dose: 75 mg Documented by: Cyanocobalamin (Vitamin B-12) 100 mcg PO DAILY [facility] Stop: 08/19/19 08:59 Last Admin: 07/21/19 07:49 Dose: 100 mcg Documented by: Dextrose (Dextrose 50%) 25 - 50 ml IV UD PRN; Protocol PRN Reason: Hypoglycemia Protocol Stop: 08/18/19 18:04 Diltiazem HCl (Cardizem Cd) 180 mg PO DAILY [facility] Stop: 08/19/19 08:59 Last Admin: 07/21/19 07:50 Dose: 180 mg Documented by: Escitalopram Oxalate (Lexapro Tab) 5 mg PO DAILY [facility] Stop: 08/19/19 08:59 Last Admin: 07/21/19 07:48 Dose: 5 mg Documented by: Famotidine (Pepcid) 20 mg PO QAM [facility] Stop: 08/19/19 08:59 Last Admin: 07/21/19 07:50 Dose: 20 mg Documented by: Ferrous Sulfate (Feosol) 325 mg PO HS [facility] Stop: 08/18/19 20:59 Last Admin: 07/21/19 20:26 Dose: 325 mg Documented by: Glucagon (Glucagen) 1 mg SQ UD PRN; Protocol PRN Reason: Hypoglycemia Protocol Stop: 08/18/19 18:04 Glucose (Dex4 Glucose) 4 - 8 tabs PO UD PRN; Protocol PRN Reason: Hypoglycemia Protocol Stop: 08/18/19 18:04 Glucose (Glucose 40%) 15 - 30 gm PO UD PRN; Protocol PRN Reason: Hypoglycemia Protocol Stop: 08/18/19 18:04 Insulin Aspart (Novolog Flexpen) 0 units SC ACHS [facility] Stop: 08/18/19 20:59 Last Admin: 07/22/19 08:42 Dose: 3 units Documented by: Isosorbide Mononitrate (Imdur Extended Rel) 120 mg PO BID [facility] Stop: 08/18/19 20:59 Last Admin: 07/21/19 20:26 Dose: 120 mg Documented by: Magnesium Oxide (Mag-Ox) 400 mg PO QAM [facility] Stop: 08/19/19 08:59 Last Admin: 07/21/19 07:48 Dose: 400 mg Documented by: Miscellaneous (Carbohydrates For Hypoglycemia) 15 - 30 gm PO UD PRN PRN Reason: Hypoglycemia Protocol Stop: 08/18/19 18:04 Multivitamins (Multivitamin Tab) 1 tab PO QAM [facility] Stop: 08/19/19 08:59 Last Admin: 07/21/19 07:48 Dose: 1 tab Documented by: Nitroglycerin (Nitrostat) 0.4 mg SL UD PRN PRN Reason: Chest Pain Stop: 08/18/19 19:55 Ondansetron HCl (Zofran) 4 mg IV Q4H PRN PRN Reason: Nausea And Vomiting Stop: 08/18/19 18:04 Pantoprazole Sodium (Protonix) 40 mg PO DAILY [facility] Stop: 08/19/19 08:59 Last Admin: 07/21/19 07:48 Dose: 40 mg Documented by: Potassium Chloride (Klor-Con M20) 20 meq PO DAILY [facility] Stop: 08/19/19 08:59 Last Admin: 07/21/19 07:49 Dose: 20 meq Documented by: Pravastatin Sodium (Pravachol) 80 mg PO QAM [facility] Stop: 08/19/19 08:59 Last Admin: 07/21/19 07:49 Dose: 80 mg Documented by: Prednisone (Prednisone) 30 mg PO BID [facility] Stop: 08/18/19 20:59 Last Admin: 07/21/19 20:28 Dose: 30 mg Documented by: Fluticasone/Salmeterol (Advair Diskus 100/50) 1 puffs INH BID [facility] Stop: 08/19/19 08:59 Last Admin: 07/21/19 20:26 Dose: 1 puffs Documented by: Sitagliptin Phosphate (Januvia) 50 mg PO DAILY [facility] Stop: 08/19/19 08:59 Last Admin: 07/21/19 07:49 Dose: 50 mg Documented by: Torsemide (Demadex) 20 mg PO DAILY [facility] Stop: 08/19/19 08:59 Last Admin: 07/21/19 07:49 Dose: 20 mg Documented by: (1) CAD (coronary artery disease) Associated angina: angina presence unspecified Coronary Disease-Associated Artery/Lesion type: [place] artery [place] vs. transplanted heart: [place] heart Qualified Code(s): I25.10 - Atherosclerotic heart disease of [place] coronary artery without angina pectoris (2) A-fib Atrial fibrillation type: paroxysmal Qualified Code(s): I48.0 - Paroxysmal atrial fibrillation (3) HTN (hypertension) Hypertension type: essential hypertension Qualified Code(s): I10 - Essential (primary) hypertension
[2019-07-22] MEDS: INSULIN ASPART 100 UNITS/ML 3 ML PEN SC SCH ×4 (08:42→21:09)
[2019-07-22] MEDS: FLUTICASONE/SALMETEROL 100/50 (ADVAIR) 14 PUFF/1 INHALER INH SCH ×2 (09:43→21:10)
[2019-07-22] MEDS: ESCITALOPRAM OXALATE 10 MG TAB PO SCH (09:44)
[2019-07-22] MEDS: dilTIAZem HCL 180 MG CAPCR PO SCH (09:44)
[2019-07-22] MEDS: ISOSORBIDE MONO EXTENDED REL 60 MG TABCR PO SCH ×2 (09:44→21:12)
[2019-07-22] MEDS: predniSONE 10 MG TABLET PO SCH ×2 (09:44→21:11)
[2019-07-22] MEDS: CLOPIDOGREL BISULFATE 75 MG TAB PO SCH (09:44)
[2019-07-22] MEDS: PANTOprazole 40 MG TAB PO SCH (09:44)
[2019-07-22] MEDS: TORSEMIDE 20 MG TAB PO SCH (09:44)
[2019-07-22] MEDS: MULTIVITAMIN TAB PO SCH (09:44)
[2019-07-22] MEDS: SITAGLIPTIN PHOSPHATE 25 MG TAB PO SCH (09:45)
[2019-07-22] MEDS: carvediloL 25 MG TAB PO SCH ×2 (09:45→21:12)
[2019-07-22] MEDS: ASPIRIN 81 MG ECTAB PO SCH (09:45)
[2019-07-22] MEDS: POTASSIUM CHLORIDE 20 MEQ TABCR PO SCH (09:45)
[2019-07-22] MEDS: MAGNESIUM OXIDE 400 MG TAB PO SCH (09:45)
[2019-07-22] MEDS: FAMOTIDINE 20 MG TAB PO SCH (09:45)
[2019-07-22] MEDS: PRAVASTATIN SOD 40 MG TAB PO SCH (09:45)
[2019-07-22] MEDS: CYANOCOBALAMIN (VITAMIN B-12) 100 MCG TABLET PO SCH (09:45)
--- NOTE | 2019-07-22 11:09 | Hospitalist Progress Note ---
Date of Service July 22, 2019 Assessment & Plan (1) Generalized weakness: (2) Recurrent falls: -Continue admit to [facility] with telemetry -Dobutamine stress test in AM for intermittent chest pain. -PT/OT, case management to assist with discharge planning as she will likely need rehab as she lives at home alone and has frequent falls as often as daily. -TTE pending 2D echo -Continue Plavix and aspirin for now (3) CAD (coronary artery disease): - Will place on tele overnight due to chest discomfort - Initial troponin 0.035 trended down. - Appreciate cardiology recs:Lexiscan nuclear stress test was nonischemic so we do not see any cardiac component to her chest pain at this time and believe is most likely musculoskeletal from her attempting to get out of the bathtub. - So no further cardiac testing or intervention is necessary at this time. No medication changes will be made today and no cardiac follow-up is necessary at this time. (4) Ischemic heart disease: as above Present on Admission?: Yes (5) History of aortic valve replacement: - noted (6) A-fib: -Currently in sinus rhythm, continue carvedilol 25 mg BID, diltiazem 180 daily, Imdur 120 mg BID, and torsemide 20 mg daily (7) COPD with hypoxia: -Wears 2-3 L O2 at all times, CPAP at bedtime -Cough x3 days, sputum culture if produces expectorant -Continue Ventolin -Continue duo nebs QID and Q2H prn, has received 2 treatments in the ER -No need for steroid at this time, recently finished prednisone 30 mg BID x 5d course. Pt received dexamethasone 10 mg IV in the ER. No wheeze on exam. -No antibiotics at this time, afebrile, WBC = 9.94 -Influenza PCR -A&B negative -Procalcitonin-negative (8) Diabetes mellitus: -Last A1c was 6.9 07/21/2019 -Continue Januvia -ISS with Accu-Cheks ACHS (9) Hypokalemia: -3.2 on admission, replace via p.o. (10) Morbid obesity with BMI of 40.0-44.9, adult: - Diet and exercise to be encouraged upon d/c - Pt does not participate in physical activity routinely, PT/OT consults. (11) DVT prophylaxis: -teds, plavix, asa CODE: Full code Disposition: Patient from home, lives alone, CM to assist with discharge planning, PT/OT, patient will require acute rehab stay vs home health Subjective Patient seen and examined at the bedside. No acute event overnight. She is afebrile. She denies any chest pain this morning, she said she had chest pain yesterday nitroglycerin helped. Her troponin are negative so far. Patient denies fever, chills, chest pain, shortness of breath, abdominal pain, frequency, urgency, hematemesis, dysuria, hematuria. P.o. intake is good.Pt had a stress test today which she tolerated well. Review of Systems Review of Systems: All systems reviewed & are unremarkable except as noted in HPI & below Physical Exam Constitutional: WD/WN, vitals as above Eyes: normal visual nance by confrontation and + anicteric sclerae Neck: normal visual inspection and trachea midline Respiratory: normal respiratory effort, lungs clear to auscultation Cardiovascular: Rate/Rhythm: regular rate and regular rhythm Gastrointestinal (Abdomen): Inspection/Auscultation: abdomen not distended Percussion/Palpation: abdomen soft; abdomen nontender Musculoskeletal: Head/Neck/Chest: normocephalic and head atraumatic Skin: no rashes, warm and dry Neurologic: awake; not confused Speech / Cognition: normal speech Psychiatric: A+Ox3, euthymic affect Results & Data Vital Signs (Past 12 Hours) Vital Signs Temp Pulse Pulse Resp BP Pulse Ox 07/22/19 11:02 80 20 98 07/22/19 09:00 62 07/22/19 07:03 77 20 98 07/22/19 03:58 36.6 C 63 18 162/82 H 98 07/22/19 00:30 59 L PG Care Time/CCT Total # of Minutes Spent Total Time Spent with Patient: Total time spent is greater than 50% in coordination of care (as documented) at patient's floor/unit and/or counseling patient:
[2019-07-22] MEDS ORDERED: REGADENOSON 0.4 MG/5 ML SYR IV ONE (11:46)
--- NOTE | 2019-07-22 15:25 | Myocardial Perfusion Study ---
Date of Service July 22, 2019 Myocardial Perfusion Study [facility] Myocardial Perfusion Study Report Procedure: 1. Myocardial perfusion study performed in multiple views/images 2. Lexiscan pharmacologic stress ECG Indications: 1. 79-year-old woman with a history of paroxysmal atrial fibrillation presenting with generalized weakness and chest pain after being stuck in a bathtub for over 4 hours. Ordering physician: [place] Procedural details: For the stress portion of the study, Lexiscan 0.4 mg was intravenously administered followed by a saline flush. This was followed by 32.1 mCi of technetium 99m Cardiolite, injected at 1340 on 07/22/2019. 30 minutes following the injection, imaging of the heart was performed in multiple projections. For the rest portion of the study, 10.173 mCi technetium 99m Cardiolite was injected intravenously at 1140 on 07/22/2019. 1 hour following the injection, imaging of the heart was performed in the same projections. Lexiscan stress ECG: Resting ECG demonstrated: Normal sinus rhythm without ischemic changes Maximum heart rate: 67 bpm Maximal, age-predicted heart rate:% Resting blood pressure: 168/81 mmHg Maximum blood pressure: 168/[address] changes: None Arrhythmia: None Symptoms: None Findings: Rotating raw imaging demonstrated no significant lung uptake. There is no significant motion artifact. Heart size appeared normal. Myocardial perfusion demonstrated homogeneous tracer uptake throughout the myocardium without defect. Ejection fraction: 69 % Wall motion: Normal No significant transient ischemic dilation. Impression: 1. Nonischemic Lexiscan nuclear stress test. Normal LV systolic function witho ut wall motion EF calculated be 69%
[2019-07-22] MEDS: INSULIN GLARGINE SOLOSTAR 100 UNITS/ML 3 ML PEN SC SCH (17:30)
[2019-07-22] MEDS: FERROUS SULFATE 325 MG TAB PO SCH (21:11)
[2019-07-23] MEDS: ALBUT/IPRATROP 3MG/0.5MG NEB 3 ML VIAL NEB SCH ×4 (07:13→19:23)
[2019-07-23 07:51] LABS: Hemoglobin 10.1 g/dL (12.0-16.0); Mean Corpuscular Hemoglobin 32.8 pg (25-34); Mean Corpuscular Hgb Conc 33.7 g/dL (32-36); Mean Corpuscular Volume 97.4 fL (80-100); Mean Platelet Volume 11.5 fL (7.4-10.4); Platelet Count 154 K/uL (130-400); RDW Coefficient of Variation 14.4 % (11.5-14.5); RDW Standard Deviation 50.9 fL (36.4-46.3); Red Blood Count 3.08 M/uL (4.2-5.4)
[2019-07-23 08:22] LABS: Albumin Level 2.6 gm/dl (3.4-5.0); BUN Creatinine Ratio 32.3 (10-20); Calcium 8.7 mg/dl (8.5-10.1); Creatinine Clr Calc Pharmacy 30.7 ml/min; Est GFR (African American) 31.3; Potassium 4.3 mmol/L (3.5-5.1)
[2019-07-23] MEDS: MAGNESIUM OXIDE 400 MG TAB PO SCH (08:24)
[2019-07-23] MEDS: INSULIN ASPART 100 UNITS/ML 3 ML PEN SC SCH ×4 (08:24→20:15)
[2019-07-23 08:25] LABS: Albumin Globulin Ratio 0.7 (0.9-2); Bilirubin,Total 0.4 mg/dl (0.2-1); Globulin 3.6 gm/dl (2.5-4.0); Total Protein 6.2 gm/dl (6.4-8.2)
[2019-07-23] MEDS: POTASSIUM CHLORIDE 20 MEQ TABCR PO SCH (08:25)
[2019-07-23] MEDS: FAMOTIDINE 20 MG TAB PO SCH (08:25)
[2019-07-23] MEDS: ESCITALOPRAM OXALATE 10 MG TAB PO SCH (08:25)
[2019-07-23] MEDS: dilTIAZem HCL 180 MG CAPCR PO SCH (08:25)
[2019-07-23] MEDS: CLOPIDOGREL BISULFATE 75 MG TAB PO SCH (08:25)
[2019-07-23] MEDS: MULTIVITAMIN TAB PO SCH (08:26)
[2019-07-23] MEDS: PANTOprazole 40 MG TAB PO SCH (08:26)
[2019-07-23] MEDS: PRAVASTATIN SOD 40 MG TAB PO SCH (08:26)
[2019-07-23] MEDS: INSULIN GLARGINE SOLOSTAR 100 UNITS/ML 3 ML PEN SC SCH (08:26)
[2019-07-23] MEDS: ASPIRIN 81 MG ECTAB PO SCH (08:27)
[2019-07-23] MEDS: TORSEMIDE 20 MG TAB PO SCH (08:27)
[2019-07-23] MEDS: predniSONE 10 MG TABLET PO SCH ×2 (08:27→20:14)
[2019-07-23] MEDS: carvediloL 25 MG TAB PO SCH ×2 (08:27→20:11)
[2019-07-23] MEDS: ISOSORBIDE MONO EXTENDED REL 60 MG TABCR PO SCH ×2 (08:27→20:13)
[2019-07-23] MEDS: CYANOCOBALAMIN (VITAMIN B-12) 100 MCG TABLET PO SCH (08:28)
[2019-07-23] MEDS: FLUTICASONE/SALMETEROL 100/50 (ADVAIR) 14 PUFF/1 INHALER INH SCH ×2 (08:28→20:08)
[2019-07-23] MEDS: SITAGLIPTIN PHOSPHATE 25 MG TAB PO SCH (08:33)
--- NOTE | 2019-07-23 09:31 | Cardiology Progress Note ---
Date of Service July 23, 2019 Assessment & Plan (1) Generalized weakness: Patient refusing rehab. Intermittent weakness of the right knee/leg. Would benefit from at least home health/PT, she is agreeable. She is also requesting a wheeled walker with seat/basket. Will defer to hospital ist or PCP No associate dizziness/syncope/near syncope contributing to her symptoms. (2) Chest pain: Episode of substernal chest pressure 3 days prior to admission No chest pain since admission EKG without acute changes Echo with normal LV systolic function Cardiac enzymes negative Nuclear lexiscan stress test negative for inducible ischemia. Continue home medications (3) CAD (coronary artery disease): Non ischemic stress. Continue ASA, carvedilol, plavix, diltiazem, isosorbide, and statin (4) A-fib: diagnosed in 2018 with PAF. Started on Coumadin at that time. within several weeks she was admitted for severe GI bleed with hypovolemic shock. Anticoagulation contraindicated despite high CHADSVASC score Currently NSR Continue beta reynaldo, diltiazem and ASA (5) HTN (hypertension): Continue home medications. Labile readings. No changes at this time. Case discussed with Dr. Kee No further cardiac testing warranted at this time. Stable from cardiac standpoint to be discharged. Will arrange hospital f/u upon discharge at [facility]. Supervising Physician Co-Signing Physician Notes Patient seen and examined with Toya Rothman PA-C. Agree with findings and assessment as above. Currently the patient states that she is feeling well and that she has not had any recurrences of chest pain. Lexiscan nuclear stress test was nonischemic so we do not see any cardiac component to her chest pain at this time and believe is most likely musculoskeletal. So no further cardiac testing or intervention is necessary at this time. No medication changes will be made today and no cardiac follow-up is necessary at this time. Subjective Patient feeling well this AM. Denies recurrent chest pain. No SOB. No orthopnea, PND or edema. Ambulating in hallways. Notes mild right leg/knee weakness but improved from admission. No falls. Requesting to go home. Resistant to rehab. Agreeable to possible PT at home with home health. Also requesting a walker with a seat. Review of Systems Review of Systems: All systems reviewed & are unremarkable except as noted in HPI & below Physical Exam Constitutional: WD/WN, vitals as above well nourished and + obese; no acute distress Eyes: PERRL, conjunctivae normal, anicteric sclerae Neck: normal visual inspection Respiratory: normal respiratory effort, lungs clear to auscultation Cardiovascular: Rate/Rhythm: regular rate and regular rhythm Heart Sounds: + murmur (II/ systolic murmur) Vessels: no JVD Extremities: no edema Gastrointestinal (Abdomen): normal bowel sounds, soft, nontender, no hepatosplenomegaly Neurologic: PERRL, EOMI, accommodation nl, no face palsy, no dysarthria Psychiatric: A+Ox3, euthymic affect Results & Data Vital Signs (Past 12 Hours) Vital Signs Temp Pulse Pulse Resp BP BP Pulse Ox 07/23/19 07:26 36.7 C 65 20 156/72 H 94 07/23/19 07:13 64 18 95 07/23/19 04:00 36.6 C 58 L 20 159/75 H 97 07/23/19 01:38 64 07/22/19 23:00 36.9 C 59 L 20 141/66 H 95 Laboratory Results 07/23/19 07/23/19 07/23/19 Range/Units 07:43 07:17 07:17 WBC 8.30 (4.8-10.8) K/uL RBC 3.08 L (4.2-5.4) M/uL Hgb 10.1 L (12.0-16.0) g/dL Hct 30.0 L (37-47) % MCV 97.4 (80-100) fL MCH 32.8 (25-34) pg MCHC 33.7 (32-36) g/dL RDW Std Deviation 50.9 H (36.4-46.3) fL RDW Coeff of Albert 14.4 (11.5-14.5) % Plt Count 154 (130-400) K/uL MPV 11.5 H (7.4-10.4) fL Sodium 138 (136-145) mmol/L Potassium 4.3 (3.5-5.1) mmol/L Chloride 104 (98-107) mmol/L Carbon Dioxide 28 (21-32) mmol/L Anion Gap 6.0 (3-11) BUN 57 H (7-18) mg/dl Creatinine 1.75 H (0.6-1.2) mg/dl Est Cr Clr Drug Dosing 30.7 ml/min Est GFR ( Amer) 31.3 Est GFR (Non-Af Amer) 27.0 BUN/Creatinine Ratio 32.3 H (10-20) Glucose 193 H (70-99) mg/dl POC Glucose 211 H (70-99) Calcium 8.7 (8.5-10.1) mg/dl Total Bilirubin 0.4 (0.2-1) mg/dl AST 7 L (15-37) U/L ALT 14 (12-78) U/L Alkaline Phosphatase 56 (45-117) U/L Total Protein 6.2 L (6.4-8.2) gm/dl Albumin 2.6 L (3.4-5.0) gm/dl Globulin 3.6 (2.5-4.0) gm/dl Albumin/Globulin Ratio 0.7 L (0.9-2) 07/22/19 07/22/19 07/22/19 Range/Units 20:45 17:23 16:17 WBC (4.8-10.8) K/uL RBC (4.2-5.4) M/uL Hgb (12.0-16.0) g/dL Hct (37-47) % MCV (80-100) fL MCH (25-34) pg MCHC (32-36) g/dL RDW Std Deviation (36.4-46.3) fL RDW Coeff of Albert (11.5-14.5) % Plt Count (130-400) K/uL MPV (7.4-10.4) fL Sodium (136-145) mmol/L Potassium (3.5-5.1) mmol/L Chloride (98-107) mmol/L Carbon Dioxide (21-32) mmol/L Anion Gap (3-11) BUN (7-18) mg/dl Creatinine (0.6-1.2) mg/dl Est Cr Clr Drug Dosing ml/min Est GFR ( Amer) Est GFR (Non-Af Amer) BUN/Creatinine Ratio (10-20) Glucose (70-99) mg/dl POC Glucose 289 H 234 H 239 H (70-99) Calcium (8.5-10.1) mg/dl Total Bilirubin (0.2-1) mg/dl AST (15-37) U/L ALT (12-78) U/L Alkaline Phosphatase (45-117) U/L Total Protein (6.4-8.2) gm/dl Albumin (3.4-5.0) gm/dl Globulin (2.5-4.0) gm/dl Albumin/Globulin Ratio (0.9-2) 07/22/19 07/22/19 Range/Units 14:30 11:21 WBC (4.8-10.8) K/uL RBC (4.2-5.4) M/uL Hgb (12.0-16.0) g/dL Hct (37-47) % MCV (80-100) fL MCH (25-34) pg MCHC (32-36) g/dL RDW Std Deviation (36.4-46.3) fL RDW Coeff of Albert (11.5-14.5) % Plt Count (130-400) K/uL MPV (7.4-10.4) fL Sodium (136-145) mmol/L Potassium (3.5-5.1) mmol/L Chloride (98-107) mmol/L Carbon Dioxide (21-32) mmol/L Anion Gap (3-11) BUN (7-18) mg/dl Creatinine (0.6-1.2) mg/dl Est Cr Clr Drug Dosing ml/min Est GFR ( Amer) Est GFR (Non-Af Amer) BUN/Creatinine Ratio (10-20) Glucose (70-99) mg/dl POC Glucose 237 H 223 H (70-99) Calcium (8.5-10.1) mg/dl Total Bilirubin (0.2-1) mg/dl AST (15-37) U/L ALT (12-78) U/L Alkaline Phosphatase (45-117) U/L Total Protein (6.4-8.2) gm/dl Albumin (3.4-5.0) gm/dl Globulin (2.5-4.0) gm/dl Albumin/Globulin Ratio (0.9-2) Diagnostic Findings Nuclear lexiscan stress test report reviewed: Impression: 1. Nonischemic Lexiscan nuclear stress test. Normal LV systolic function without wall motion EF calculated be 69% Medications Administered Current Inpatient Medications Acetaminophen (Tylenol) 650 mg PO Q4H PRN PRN Reason: Moderate Pain Stop: 08/18/19 18:04 Albuterol (Ventolin 0.083% 2.5mg/3ml) 2.5 mg INH Q4 PRN PRN Reason: Wheezing or Tightness in Chest Stop: 08/18/19 19:55 Albuterol (Ventolin Hfa) 2 puffs INH Q4H PRN PRN Reason: Shortness Of Breath Or Wheezing Stop: 08/18/19 19:55 Albuterol (Duoneb) 3 ml NEB QIDR [facility] Stop: 08/18/19 19:55 Last Admin: 07/23/19 07:13 Dose: 3 ml Documented by: Aspirin (Ecotrin Ectab) 81 mg PO DAILY [facility] Stop: 08/19/19 08:59 Last Admin: 07/23/19 08:27 Dose: 81 mg Documented by: Carvedilol (Coreg) 25 mg PO BID ROC[facility]LE Stop: 08/18/19 20:59 Last Admin: 07/23/19 08:27 Dose: 25 mg Documented by: Clopidogrel Bisulfate (Plavix) 75 mg PO DAILY [facility] Stop: 08/19/19 08:59 Last Admin: 07/23/19 08:25 Dose: 75 mg Documented by: Cyanocobalamin (Vitamin B-12) 100 mcg PO DAILY [facility] Stop: 08/19/19 08:59 Last Admin: 07/23/19 08:28 Dose: 100 mcg Documented by: Dextrose (Dextrose 50%) 25 - 50 ml IV UD PRN; Protocol PRN Reason: Hypoglycemia Protocol Stop: 08/18/19 18:04 Diltiazem HCl (Cardizem Cd) 180 mg PO DAILY [facility] Stop: 08/19/19 08:59 Last Admin: 07/23/19 08:25 Dose: 180 mg Documented by: Escitalopram Oxalate (Lexapro Tab) 5 mg PO DAILY [facility] Stop: 08/19/19 08:59 Last Admin: 07/23/19 08:25 Dose: 5 mg Documented by: Famotidine (Pepcid) 20 mg PO QAM [facility] Stop: 08/19/19 08:59 Last Admin: 07/23/19 08:25 Dose: 20 mg Documented by: Ferrous Sulfate (Feosol) 325 mg PO HS [facility] Stop: 08/18/19 20:59 Last Admin: 07/22/19 21:11 Dose: 325 mg Documented by: Glucagon (Glucagen) 1 mg SQ UD PRN; Protocol PRN Reason: Hypoglycemia Protocol Stop: 08/18/19 18:04 Glucose (Dex4 Glucose) 4 - 8 tabs PO UD PRN; Protocol PRN Reason: Hypoglycemia Protocol Stop: 08/18/19 18:04 Glucose (Glucose 40%) 15 - 30 gm PO UD PRN; Protocol PRN Reason: Hypoglycemia Protocol Stop: 08/18/19 18:04 Insulin Aspart (Novolog Flexpen) 0 units SC ACHS [facility] Stop: 08/18/19 20:59 Last Admin: 07/23/19 08:24 Dose: 5 units Documented by: Insulin Glargine (Lantus Solostar Pen) 20 units SC DAILY [facility] Stop: 08/21/19 14:14 Last Admin: 07/23/19 08:26 Dose: 20 units Documented by: Isosorbide Mononitrate (Imdur Extended Rel) 120 mg PO BID [facility] Stop: 08/18/19 20:59 Last Admin: 07/23/19 08:27 Dose: 120 mg Documented by: Magnesium Oxide (Mag-Ox) 400 mg PO QAM [facility] Stop: 08/19/19 08:59 Last Admin: 07/23/19 08:24 Dose: 400 mg Documented by: Miscellaneous (Carbohydrates For Hypoglycemia) 15 - 30 gm PO UD PRN PRN Reason: Hypoglycemia Protocol Stop: 08/18/19 18:04 Multivitamins (Multivitamin Tab) 1 tab PO QAM [facility] Stop: 08/19/19 08:59 Last Admin: 07/23/19 08:26 Dose: 1 tab Documented by: Nitroglycerin (Nitrostat) 0.4 mg SL UD PRN PRN Reason: Chest Pain Stop: 08/18/19 19:55 Ondansetron HCl (Zofran) 4 mg IV Q4H PRN PRN Reason: Nausea And Vomiting Stop: 08/18/19 18:04 Pantoprazole Sodium (Protonix) 40 mg PO DAILY [facility] Stop: 08/19/19 08:59 Last Admin: 07/23/19 08:26 Dose: 40 mg Documented by: Potassium Chloride (Klor-Con M20) 20 meq PO DAILY [facility] Stop: 08/19/19 08:59 Last Admin: 07/23/19 08:25 Dose: 20 meq Documented by: Pravastatin Sodium (Pravachol) 80 mg PO QAM [facility] Stop: 08/19/19 08:59 Last Admin: 07/23/19 08:26 Dose: 80 mg Documented by: Prednisone (Prednisone) 30 mg PO BID [facility] Stop: 08/18/19 20:59 Last Admin: 07/23/19 08:27 Dose: 30 mg Documented by: Fluticasone/Salmeterol (Advair Diskus 100/50) 1 puffs INH BID [facility] Stop: 08/19/19 08:59 Last Admin: 07/23/19 08:28 Dose: 1 puffs Documented by: Sitagliptin Phosphate (Januvia) 50 mg PO DAILY [facility] Stop: 08/19/19 08:59 Last Admin: 07/23/19 08:33 Dose: 50 mg Documented by: Torsemide (Demadex) 20 mg PO DAILY [facility] Stop: 08/19/19 08:59 Last Admin: 07/23/19 08:27 Dose: 20 mg Documented by: (1) CAD (coronary artery disease) Associated angina: angina presence unspecified Coronary Disease-Associated Artery/Lesion type: [place] artery [place] vs. transplanted heart: [place] heart Qualified Code(s): I25.10 - Atherosclerotic heart disease of [place] coronary artery without angina pectoris (2) A-fib Atrial fibrillation type: paroxysmal Qualified Code(s): I48.0 - Paroxysmal atrial fibrillation (3) HTN (hypertension) Hypertension type: essential hypertension Qualified Code(s): I10 - Essential (primary) hypertension
--- NOTE | 2019-07-23 18:18 | Hospitalist Progress Note ---
Date of Service July 23, 2019 Assessment & Plan (1) CAD (coronary artery disease): - Initial troponin 0.035 trended down. - Appreciate cardiology recs:Lexiscan nuclear stress test was nonischemic so we do not see any cardiac component to her chest pain at this time and believe is most likely musculoskeletal from her attempting to get out of the bathtub. - So no further cardiac testing or intervention is necessary at this time. No medication changes will be made today and no cardiac follow-up is necessary at this time. - Continue home meds :aspirin, carvedilol, Plavix, diltiazem, isosorbide and statin. (2) Recurrent falls: -Continue admit to [facility] with telemetry -PT/OT, patient is resistant to mcc. Prefers home health with Physical therapy. -TTE 2D echo-with normal LV systolic function. -Continue Plavix, aspirin, carvedilol, diltiazem, isosorbide and statin. (3) Generalized weakness: (4) Ischemic heart disease: as above (5) History of aortic valve replacement: - noted (6) A-fib: -Currently in sinus rhythm, continue carvedilol 25 mg BID, diltiazem 180 daily, Imdur 120 mg BID, and torsemide 20 mg daily. Pt is not on anticoagulation -In 2018 she was diagnosed with paroxysmal atrial fibrillation. She was started on Coumadin for anticoagulation as her [id number] was 6 suggesting high risk for cardioembolic stroke. Unfortunately she developed significant gastrointestinal bleeding I was hospitalized for hypovolemic shock and acute blood loss anemia. -Coumadin was therefore discontinued. -Colonoscopy revealed significant diverticula throughout the colon. (7) COPD with hypoxia: -Wears 2-3 L O2 at all times, CPAP at bedtime -Cough x3 days-resolved -Continue Ventolin -Continue duo nebs QID and Q2H prn, has received 2 treatments in the ER -No need for steroid at this time, recently finished prednisone 30 mg BID x 5d course. Pt received dexamethasone 10 mg IV in the ER. No wheeze on exam. -No antibiotics at this time, afebrile, WBC = 9.94 -Influenza PCR -A&B negative -Procalcitonin-negative (8) Diabetes mellitus: -Last A1c was 6.9 07/21/2019 -Continue Januvia -ISS with Accu-Ray JULIETTE (9) Hypokalemia: -3.2 on admission, replace via p.o. -Resolved, 4.3 today (10) Morbid obesity with BMI of 40.0-44.9, adult: - Diet and exercise to be encouraged upon d/c - Pt does not participate in physical activity routinely, PT/OT consults. (11) DVT prophylaxis: -teds, plavix, asa CODE: Full code Disposition: Patient from home, lives alone, CM to assist with discharge planning,Home Health PT/OT . Subjective Patient seen and examined at the bedside.NM mario scan stress test negative for ischemia. Cardiology signed off.Ambulating in hallways. Notes mild right leg/knee weakness but improved from admission. No falls. Requesting to go home. Patient is resistant to mcc. Agreeable to have home health with physical therapy. She requested a walker with a seat. Patient is afebrile and hemodynamically stable. She is currently on 2 L of oxygen which is her home dose and 3 L at night. Patient denies fever, chills, chest pain, shortness of breath, abdominal pain, frequency, urgency, syncope, near syncope, hematuria, dysuria or hemoptysis. Review of Systems Review of Systems: All systems reviewed & are unremarkable except as noted in HPI & below Physical Exam Constitutional: WD/WN, vitals as above Eyes: normal visual nance by confrontation and + anicteric sclerae Neck: normal visual inspection and trachea midline Respiratory: normal respiratory effort, lungs clear to auscultation Cardiovascular: Rate/Rhythm: regular rate and regular rhythm Gastrointestinal (Abdomen): Inspection/Auscultation: abdomen not distended Percussion/Palpation: abdomen soft; abdomen nontender Musculoskeletal: Head/Neck/Chest: normocephalic and head atraumatic Skin: no rashes, warm and dry Neurologic: awake; not confused Speech / Cognition: normal speech Psychiatric: A+Ox3, euthymic affect Results & Data Vital Signs (Past 12 Hours) Vital Signs Temp Pulse Pulse Resp BP Pulse Ox 07/23/19 15:21 36.4 C L 51 L 18 147/82 H 100 07/23/19 15:18 56 L 16 98 07/23/19 13:54 60 07/23/19 11:28 36.5 C 64 16 179/77 H 95 07/23/19 07:26 36.7 C 65 20 156/72 H 94 07/23/19 07:13 64 18 95 PG Care Time/CCT Total # of Minutes Spent Total Time Spent with Patient: Total time spent is greater than 50% in coordination of care (as documented) at patient's floor/unit and/or counseling patient: (1) CAD (coronary artery disease) Coronary Disease-Associated Artery/Lesion type: [place] artery [place] vs. t ransplanted heart: [place] heart Associated angina: angina presence unspecified Qualified Code(s): I25.10 - Atherosclerotic heart disease of [place] coronary artery without angina pectoris (2) A-fib Atrial fibrillation type: paroxysmal Qualified Code(s): I48.0 - Paroxysmal atrial fibrillation
[2019-07-23] MEDS: FERROUS SULFATE 325 MG TAB PO SCH (20:12)
[2019-07-24] MEDS: ALBUT/IPRATROP 3MG/0.5MG NEB 3 ML VIAL NEB SCH ×4 (07:40→19:38)
[2019-07-24] MEDS: FLUTICASONE/SALMETEROL 100/50 (ADVAIR) 14 PUFF/1 INHALER INH SCH ×2 (08:45→20:42)
[2019-07-24] MEDS: PRAVASTATIN SOD 40 MG TAB PO SCH (08:45)
[2019-07-24] MEDS: ESCITALOPRAM OXALATE 10 MG TAB PO SCH (08:45)
[2019-07-24] MEDS: predniSONE 10 MG TABLET PO SCH (08:45)
[2019-07-24] MEDS: CLOPIDOGREL BISULFATE 75 MG TAB PO SCH (08:45)
[2019-07-24] MEDS: PANTOprazole 40 MG TAB PO SCH (08:45)
[2019-07-24] MEDS: MULTIVITAMIN TAB PO SCH (08:45)
[2019-07-24] MEDS: FAMOTIDINE 20 MG TAB PO SCH (08:47)
[2019-07-24] MEDS: TORSEMIDE 20 MG TAB PO SCH (08:47)
[2019-07-24] MEDS: CYANOCOBALAMIN (VITAMIN B-12) 100 MCG TABLET PO SCH (08:48)
[2019-07-24] MEDS: POTASSIUM CHLORIDE 20 MEQ TABCR PO SCH (08:48)
[2019-07-24] MEDS: SITAGLIPTIN PHOSPHATE 25 MG TAB PO SCH (08:48)
[2019-07-24] MEDS: MAGNESIUM OXIDE 400 MG TAB PO SCH (08:48)
[2019-07-24] MEDS: ASPIRIN 81 MG ECTAB PO SCH (08:48)
[2019-07-24] MEDS: ISOSORBIDE MONO EXTENDED REL 60 MG TABCR PO SCH ×2 (08:49→20:44)
[2019-07-24] MEDS: INSULIN GLARGINE SOLOSTAR 100 UNITS/ML 3 ML PEN SC SCH (08:49)
[2019-07-24] MEDS: INSULIN ASPART 100 UNITS/ML 3 ML PEN SC SCH ×4 (08:50→20:50)
[2019-07-24] MEDS: dilTIAZem HCL 180 MG CAPCR PO SCH (08:57)
[2019-07-24] MEDS: carvediloL 25 MG TAB PO SCH ×2 (08:57→20:43)
--- NOTE | 2019-07-24 10:51 | Hospitalist Progress Note ---
Date of Service July 24, 2019 Assessment & Plan (1) Chest wall pain: Pt's left-sided chest pain is very reproducible. It responded to voltaren gel today. Cont such QID along with heat. Prednisone for COPD will help as well. Obtain rib x-rays to r/o rib fracture in light of recent falls. Recent nuclear stress test negative for ischemia. (2) COPD exacerbation: Improved. Wean prednisone to 20mg BID. Cont inhalers/nebs. (3) CAD (coronary artery disease): Lexiscan nuclear stress test was negative for ischemia. Continue home meds including aspirin, carvedilol, Plavix, diltiazem, isosorbide mononitrate and statin. (4) Recurrent falls: Would benefit from rehab but she is adamantly refusing. Will request pt/ot re-eval in AM. I asked patient that her son stay with her, at minimum, following discharge. Suspect she has neuropathy that contributes to falls. Also has OA of knees which leads to gait issues and set-up for falls. (5) Generalized weakness: Again - rehab advised but she is refusing such. To home at d/c with home PT/OT. (6) Ischemic heart disease: See above in "CAD" (7) History of aortic valve replacement: bioprosthetic recent echo with good valve function (8) A-fib: Remains in NSR. 2018 she was diagnosed with paroxysmal atrial fibrillation. Coumadin was initiated for anticoagulation as her [id number] was 6. Unfortunately she developed significant Renu bleeding and anticoagulation was d/c. (9) Diabetes mellitus: Uncontrolled due to steroids. Adjust novolog correction & carb ratio today. (10) Hypokalemia: Resolved (11) Morbid obesity with BMI of 40.0-44.9, adult: BMI nearly 41 (12) DVT prophylaxis: SCDS if she stays beyond tomorrow then add heparin SC left message for 2 family members this evening on their voicemails d/c Friday? Subjective patient had another episode of left upper chest pain this am. nursing staff called me stating she was having such. EKG obtained - NSR, no ST changes. upon my arrival she was still having pain. described it as a "sore" feeling. no radiation to neck, jaw or left arm. no nausea, no emesis. nothing made it better. moving the left arm made the pain worse. taking deep breaths made it worse as well. I ordered voltaren gel and later in the day, on a second visit to the bedside, she reported the pain was much better. she continues to refuse rehab. states "I've seen those places before." she states her son could come stay with her upon d/c home. she lives in a small trailer. tele stable overnight. Review of Systems Constitutional: no fever and no chills Respiratory: no cough and no dyspnea on exertion Cardiovascular: as per Subjective / HPI and + chest pain; no dyspnea at rest, no orthopnea, no paroxysmal nocturnal dyspnea and no edema Gastrointestinal: no abdominal pain, no nausea and no vomiting Physical Exam Constitutional: + morbidly obese; no acute distress and no altered mental status ENMT: external ear and nose normal, oropharynx normal Respiratory: normal respiratory effort, lungs clear to auscultation Cardiovascular: Rate/Rhythm: regular rate and regular rhythm Heart Sounds: normal S1 and normal S2; no murmur Vessels: posterior tibial pulses present and dorsalis pedis pulses present; no JVD Extremities: no edema Chest (Breasts): Additional Comments: +reproducible chest wall tenderness - left chest; pain also reproduced with movement of left arm Gastrointestinal (Abdomen): normal bowel sounds, soft, nontender, no he patosplenomegaly Skin: no rashes, warm and dry Psychiatric: A+Ox3, euthymic affect Results & Data Vital Signs (Past 12 Hours) Vital Signs Temp Pulse Pulse Resp BP Pulse Ox 07/24/19 10:36 57 L 140/73 07/24/19 08:57 64 07/24/19 08:50 66 07/24/19 08:42 58 L 186/75 H 07/24/19 07:40 58 L 18 98 07/24/19 07:00 36.3 C L 58 L 20 191/84 H 98 07/24/19 03:12 36.6 C 65 20 166/83 H 97 07/23/19 22:53 62 Laboratory Results Laboratory Results - last 24 hr 07/23/19 07/23/19 07/23/19 11:38 16:33 20:12 POC Glucose 280 H 250 H 245 H 07/24/19 07:36 POC Glucose 232 H Diagnostic Findings troponin x 2 negative EKG - my reading - NSR, no ST changes PG Care Time/CCT Total # of Minutes Spent Total Time Spent with Patient: Total time spent is greater than 50% in coordination of care (as documented) at patient's floor/unit and/or counseling patient: (1) CAD (coronary artery disease) Coronary Disease-Associated Artery/Lesion type: [place] artery [place] vs. transplanted heart: [place] heart Associated angina: angina presence unspecified Qualified Code(s): I25.10 - Atherosclerotic heart disease of [place] coronary a rtery without angina pectoris (2) A-fib Atrial fibrillation type: paroxysmal Qualified Code(s): I48.0 - Paroxysmal atrial fibrillation (3) Diabetes mellitus Diabetes mellitus type: type 2 Diabetes mellitus care home insulin use: with care home use Diabetes mellitus complication status: with hyperglycemia Qualified Code(s): E11.65 - Type 2 diabetes mellitus with hyperglycemia; Z79.4 - manager long term care (current) use of insulin
[2019-07-24 12:08] LABS: BUN Creatinine Ratio 29.9 (10-20); Calcium 8.9 mg/dl (8.5-10.1); Est GFR (African American) 30.5; Est GFR (Non-African American) 26.3; Potassium 4.2 mmol/L (3.5-5.1); Thyroid Stimulating Hormone 0.475 uIu/ml (0.300-4.500); Troponin I 0.016 ng/ml (0-0.045)
[2019-07-24 12:17] LABS: Beta-Hydroxybutyrate 0.83 mg/dl (0.2-2.81)
--- NOTE | 2019-07-24 12:49 | XRay Report ---
PA CHEST WITH LEFT-SIDED RIB SERIES CLINICAL HISTORY: Left-sided chest wall pain. Falls. FINDINGS: A PA chest radiograph with 5 additional views from a left-sided rib series is compared to vinny rodriguez dated 07/19/2019. Correlation is made with chest CT dated 08/04/2017. The patient is status post midline sternotomy and aortic valve surgery. The heart is enlarged noting atherosclerotic calcificati on of the thoracic aorta. The pulmonary vasculature is noncongested. Chronic interstitial thickening is similar to previous. There is mild bibasilar scarring/atelectasis. No airspace consolidation or la rge pleural effusion is seen. No pneumothorax is seen. The skeletal structures are osteopenic. There is no radiographic evidence of acute/distracted left-sided rib fracture on the rib series. The remain fausto of the bony thorax is grossly intact. IMPRESSION: 1. Cardiomegaly with no acute cardiopulmonary abnormality. 2. There is no radiographic evidence of acute/distracted left-sided rib fracture on the rib series. Electronically signed by: Ty Martinez M.D. 07/24/2019 12:47 PM
[2019-07-24] MEDS: DICLOFENAC SOD 1% GEL 100 GM TUBE EXT SCH ×3 (13:27→20:46)
[2019-07-24] MEDS: FERROUS SULFATE 325 MG TAB PO SCH (20:43)
[2019-07-24] MEDS: predniSONE 20 MG TAB PO SCH (20:45)
[2019-07-25] MEDS: ALBUT/IPRATROP 3MG/0.5MG NEB 3 ML VIAL NEB SCH ×2 (07:33→11:15)
[2019-07-25 07:59] LABS: BUN Creatinine Ratio 32.8 (10-20); Calcium 8.9 mg/dl (8.5-10.1); Est GFR (African American) 31.5; Est GFR (Non-African American) 27.2; Potassium 4.8 mmol/L (3.5-5.1)
[2019-07-25] MEDS: PRAVASTATIN SOD 40 MG TAB PO SCH (08:13)
[2019-07-25] MEDS: MULTIVITAMIN TAB PO SCH (08:13)
[2019-07-25] MEDS: CLOPIDOGREL BISULFATE 75 MG TAB PO SCH (08:13)
[2019-07-25] MEDS: ESCITALOPRAM OXALATE 10 MG TAB PO SCH (08:13)
[2019-07-25] MEDS: predniSONE 20 MG TAB PO SCH (08:13)
[2019-07-25] MEDS: FLUTICASONE/SALMETEROL 100/50 (ADVAIR) 14 PUFF/1 INHALER INH SCH (08:13)
[2019-07-25] MEDS: PANTOprazole 40 MG TAB PO SCH (08:13)
[2019-07-25] MEDS: ISOSORBIDE MONO EXTENDED REL 60 MG TABCR PO SCH (08:14)
[2019-07-25] MEDS: dilTIAZem HCL 180 MG CAPCR PO SCH (08:14)
[2019-07-25] MEDS: carvediloL 25 MG TAB PO SCH (08:14)
[2019-07-25] MEDS: SITAGLIPTIN PHOSPHATE 25 MG TAB PO SCH (08:14)
[2019-07-25] MEDS: ASPIRIN 81 MG ECTAB PO SCH (08:14)
[2019-07-25] MEDS: POTASSIUM CHLORIDE 20 MEQ TABCR PO SCH (08:14)
[2019-07-25] MEDS: CYANOCOBALAMIN (VITAMIN B-12) 100 MCG TABLET PO SCH (08:15)
[2019-07-25] MEDS: TORSEMIDE 20 MG TAB PO SCH (08:15)
[2019-07-25] MEDS: FAMOTIDINE 20 MG TAB PO SCH (08:15)
[2019-07-25] MEDS: MAGNESIUM OXIDE 400 MG TAB PO SCH (08:15)
[2019-07-25] MEDS: INSULIN GLARGINE SOLOSTAR 100 UNITS/ML 3 ML PEN SC SCH (08:15)
[2019-07-25] MEDS: INSULIN ASPART 100 UNITS/ML 3 ML PEN SC SCH ×2 (08:16→12:40)
[2019-07-25] MEDS: DICLOFENAC SOD 1% GEL 100 GM TUBE EXT SCH ×2 (08:16→12:39)
--- NOTE | 2019-07-25 12:52 | Discharge Summary ---
Date of Service date of admission - July 19, 2019 date of discharge - July 25, 2019 Admission HPI Per Admitting Provider This is an 79-year-old female with PMHx of CAD, A. fib, HTN, HLD, ischemic heart disease, history of aortic valve replacement, COPD, DM type II, GERD, Salazar's esophagus, hypokalemia, recurrent falls who presents with increased falls and pain. She reports that she has fallen nearly every day for the past 2 weeks. She feels her strength is not at her baseline. She is currently lives at home alone, and uses a walker or cane at all times. She denies any hypotensive prodrome prior to her falls, no lightheadedness or dizziness, and just slumps down towards the ground when she falls. Denies any injury to the head, loss of consciousness, or other traumatic injury. She also notes 3 days of cough and congestion where she recently finished a prednisone taper. She reports reports feeling a chest tightness with cough, no sputum production. She has a nebulizer at home but has not used it. She denies chest pain, palpitations, headache. CT the head is negative for acute findings other than right mastoid effusion which is new, there is right sinus opacification which appears to be chronic. No white count, afebrile. Creatinine = 1.52, slightly increased compared to baseline of 1.2-1.3. Principal Diagnosis 1. Chest pain, ACS ruled out, negative stress test; pain likely musculoskeletal in origin. 2. COPD exacerbation. Discharge Exam Constitutional + morbidly obese; no acute distress and no altered mental status ENMT external ear and nose normal, oropharynx normal Respiratory normal respiratory effort, lungs clear to auscultation Cardiovascular Rate/Rhythm: regular rate and regular rhythm Heart Sounds: normal S1 and normal S2; no murmur Vessels: posterior tibial pulses present and dorsalis pedis pulses present; no JVD Extremities: no edema Gastrointestinal (Abdomen) normal bowel sounds, soft, nontender, no hepatosplenomegaly Skin no rashes, warm and dry Psychiatric A+Ox3, euthymic affect Discharge Data Allergies Allergy/AdvReac Type Severity Reaction Status Date / Time aspirin Allergy Unknown Unknown Verified 07/19/19 15:55 cefuroxime [From Ceftin] Allergy Unknown Unknown Verified 07/19/19 15:55 Cephalosporins Allergy Unknown Unknown Verified 07/19/19 15:55 doxycycline Allergy Unknown UNKNOWN Verified 07/19/19 15:55 hydrocodone Allergy Unknown Unknown Verified 07/19/19 15:55 neomycin Allergy Unknown Unknown Verified 07/19/19 15:55 propoxyphene Allergy Unknown Unknown Verified 07/19/19 15:55 Sulfa (Sulfonamide Allergy Unknown Unknown Verified 07/19/19 15:55 Antibiotics) metformin AdvReac Mild nausea Verified 07/19/19 15:55 vicodin tabs Allergy Unknown Uncoded 07/19/19 15:55 Consultations [facility] PT, OT Ordered Studies 1. CT head - negative for acute stroke. 2. Lexiscan Nuclear Stress test negative for ischemia. 3. left-sided rib series - negative for fracture. 4. echocardiogram - * EF 55-60% * moderate LVH * normal wall motion * normal functioning bioprosthetic aortic valve * grade 2 diastolic dysfunction Hospital Course (1) Chest wall pain: Pt's left-sided chest pain was very reproducible on physical exam. It responded to voltaren gel nicely. The above findings, coupled with negative troponins and negative Lexiscan nuclear stress test, make the etiology of her pain likely musculoskeletal in origin. At discharge I recommended voltaren gel QID along with heat. Prednisone for COPD should help her symptoms as well. No rib fractures were detected on x-rays while hospitalized. (2) COPD exacerbation: The patient was treated for COPD exacerbation while hospitalized with steroids, nebs, inhalers, etc. Pulmonary symptoms improved with such. Prior to discharge prednisone was in the process of being tapered. She will finish a prednisone taper after discharge. She remained stable on her home O2 amount of 2 L. (3) CAD (coronary artery disease): Lexiscan nuclear stress test was negative for ischemia. Continue home meds including aspirin, carvedilol, Plavix, diltiazem, isosorbide mononitrate and statin. Chest pain was thought to be musculoskeletal in origin. (4) Recurrent falls: Early on in her stay it was felt that she would benefit from rehab after discharge as she was doing poorly from a PT/OT standpoint. As time passed, however, she actually improved with her walking during therapy. On day of discharge she was seen by PT/OT again and did well enough to return home with home health. I suspect a combination of neuropathy and osteoarthritis of her knees likely contributes to her heightened fall risk. (5) Generalized weakness: Improved with time while hospitalized. She was set up for home health and home PT/OT at discharge. (6) Ischemic heart disease: See above in "CAD" (7) History of aortic valve replacement: bioprosthetic recent echo with good valve function (8) A-fib: Remained in NSR during this hospitalization. 2018 she was diagnosed with paroxysmal atrial fibrillation. Coumadin was initiated for anticoagulation as her [id number] was 6. Unfortunately she developed significant GI bleeding in the past and thus anticoagulation was discontinued at that time. (9) Diabetes mellitus: Uncontrolled due to steroids. Required novolog and lantus insulin therapy for control while here. Glycemic control improved as her steroids were tapered. Her januvia was adjusted to 50mg daily for her reduced renal function at discharge. She was advised to watch her diet carefully in the days immediately post- discharge since she will be on prednisone for a few more days. (10) Hypokalemia: Resolved w/ replacement (11) Morbid obesity with BMI of 40.0-44.9, adult: BMI nearly 41 (12) Chronic respiratory failure with hypoxia, on home O2 therapy: on [place] O2, 2 liters continuously (13) CKD (chronic kidney disease) stage 3, GFR 30-59 ml/min: Cr 1.7 at time of discharge (about baseline) Total Time Total Time Spent Total Time Spent (In Minutes): 45 Discharge Plan Discharge Items Patient Disposition: Home - Home Health Services Reason For Visit: FALLS, BRONCHITIS, CHEST PAIN Discharge Diagnosis: 1. bronchitis / COPD exacerbation - improved 2. chest pain - musculoskeletal in origin (NOT the heart as your stress test was negative and the pain got better with topical gel) 3. recent falls Activity: Resume your previous activity Non-emergency contact: Primary Care Provider Call non-emergency contact if: you have any medication questions, your symptoms worsen, your pain is not controlled, your pain is worsening, your pain is unusual for you, your pain is concerning for you and you have a fever Follow-up/Referrals: Hilaria Myers CRNP [Primary Care Provider] - (ideally please see Ms Myers or one of her partners prior to Thanksgiving) Diet: Carb Consistent or DM2 and Heart Healthy Addtl Attending Provider Instructions: You were treated for chest wall pain, COPD exacerbation and falls. Your chest pain was felt to be musculoskeletal in origin -- that is, the pain is coming from the muscle and not your heart. You also had a COPD exacerbation (bronchitis) - this was treated with steroids, nebulizer treatments, etc. This improved while you were here. You have had a series of falls at home recently. You mentioned that your knees lock up at times. This is likely because of arthritis of the knees. The locking of the knees can contribute to falls. You were seen by the PT/OT folks while here. Initially there was concern that you needed to go to rehab. However your walking improved while hospitalized. We are recommending home health for you despite your progress. Recommendations - 1. voltaren gel - 4 grams to the left chest wall OR either knee up to 4 times each day for pain relief. 2. heating pad to left upper chest as needed for pain relief. 3. prednisone taper - start TOMORROW on Thursday 07/26. Take for total of 5 more days then stop. 4. know that the steroid (prednisone) will increase your blood sugars over the next few days. Please watch your diet accordingly. 5. DECREASE your januvia (sitagliptin) diabetes medication to 50mg once daily. 6. use your walker with walking at your home. 7. continue your nasal cannula oxygen 2 liters at all times as previous. 8. if you continue to have falls please seek medical attention right away. 9. please have a family member stay with you, especially at night, for the next 3-4 days to ensure a good transition to home. Follow-up -- see Ms East this week if possible Return to [facility] if -- * you have fevers over 100.5 degrees * you have worsening shortness of breath * you have persistently high blood sugars over 300 * you have recurrent falls * any other concerns Pending Studies at Discharge: No Stand-Alone Forms: My [facility], Smoking Cessation Medications and DC Order Prescriptions: New diclofenac sodium [Voltaren] 1 % Gel 4 g EXT QID Qty: 1 RF: 2 prednisone 10 mg tablet 10 mg PO DIRECTED Qty: 9 RF: 0 Continued aspirin 81 mg tablet,delayed release (DR/EC) 81 mg PO DAILY Qty: 90 RF: 0 coenzyme Q10 100 mg tablet 100 mg PO QPM Qty: 30 RF: 0 famotidine 40 mg tablet 40 mg PO QAM Qty: 90 RF: 0 ferrous sulfate 325 mg (65 mg iron) tablet 325 mg PO HS Qty: 90 RF: 0 magnesium oxide 400 mg magnesium tablet 400 mg PO QAM Qty: 30 RF: 0 Dulera 200-5 mcg/actuation HFA aerosol inhaler 2 puff inhalation BID Qty: 13 RF: 0 multivitamin tablet 1 tab PO QAM Qty: 60 RF: 0 pantoprazole [Protonix] 40 mg tablet,delayed release (DR/EC) 40 mg PO DAILY Qty: 90 RF: 0 pravastatin 80 mg tablet 80 mg PO QAM Qty: 90 RF: 0 clopidogrel 75 mg tablet 75 mg PO DAILY Qty: 30 RF: 2 nitroglycerin [Nitrostat] 0.4 mg tablet, sublingual 0.4 mg sublingual DIRECTED PRN (Reason: Chest Pain) RF: 0 carvedilol [Coreg] 25 mg tablet 25 mg PO BID RF: 0 torsemide 20 mg tablet 20 mg PO DAILY RF: 0 diltiazem HCl [Cardizem CD] 180 mg capsule,extended release 24hr 180 mg PO DAILY RF: 0 isosorbide mononitrate 120 mg tablet extended release 24 hr 120 mg PO BID RF: 0 escitalopram oxalate 5 mg tablet 5 mg PO DAILY RF: 0 Changed Januvia 100 mg tablet 50 mg PO DAILY Qty: 0 RF: 0 No Action albuterol sulfate 2.5 mg /3 mL (0.083 %) solution for nebulization 2.5 mg inhalation Q4 PRN (Reason: Wheezing or Tightness in Chest) Qty: 75 RF: 5 albuterol sulfate [Ventolin HFA] 90 mcg/actuation HFA aerosol inhaler 2 puff inhalation Q4H PRN (Reason: Shortness Of Breath Or Wheezing) Qty: 18 RF: 5 potassium chloride 20 mEq tablet extended release 20 meq PO DAILY Qty: 90 RF: 3 cyanocobalamin (vitamin B-12) 500 mcg tablet 500 mcg PO DAILY Qty: 30 RF: 4 Discharge Orders: Discharge Order (Routine); Ordered 07/25/19 Ordered By: Jose Eduardo Guerrero Admission Data Admit Date/Time: 07/21/19 09:48 Attending Provider: Jose Eduardo Guerrero Admit Provider: Germaine Collazo Primary Care Provider: Hilaria Myers Other Providers: Germaine Collazo ; Matthew Bryant ; [facility] Other Interventions: Discharge Summary Assessment (RN) Last Done: 07/25/19 13:09 DC Date/Time DO NOT enter until pt leaves facility: 07/25/19 13:58
== END 2019-07-25 13:58 | disposition home health service (06) | DRG 191 ==
LOC: ED 14:34 → 2W 14:34 → SUATTDRO 18:11 → 2W 18:46 → SUATTDRO 07-21 09:48

== ENCOUNTER 2019-08-16 11:32 | Inpatient (IN) ==
[2019-08-16] MEDS ORDERED: ALBUT/IPRATROP 3MG/0.5MG NEB 3 ML VIAL INH STA (12:15)
[2019-08-16 12:42] LABS: Basophils # (auto) 0.02 K/uL (0-0.2); Basophils % (auto) 0.3 %; Eosinophils # (auto) 0.02 K/uL (0-0.5); Eosinophils % (auto) 0.3 %; Hematocrit (blood only) 32.4 % (37-47); Hemoglobin 10.3 g/dL (12.0-16.0); Immature Granulocytes # (auto) 0.02 K/uL (0.00-0.02); Immature Granulocytes % (auto) 0.3 %; Lymphocytes # (auto) 0.66 K/uL (1.2-3.4); Lymphocytes % (auto) 11.1 %; Mean Corpuscular Hemoglobin 32.2 pg (25-34); Mean Corpuscular Hgb Conc 31.8 g/dL (32-36); Mean Corpuscular Volume 101.3 fL (80-100); Mean Platelet Volume 10.6 fL (7.4-10.4); Monocytes # (auto) 0.61 K/uL (0.11-0.59); Monocytes % (auto) 10.2 %; Neutrophils # (auto) 4.63 K/uL (1.4-6.5); Neutrophils % (auto) 77.8 %; Platelet Count 201 K/uL (130-400); RDW Coefficient of Variation 14.7 % (11.5-14.5); RDW Standard Deviation 54.6 fL (36.4-46.3); White Blood Count 5.96 K/uL (4.8-10.8)
--- NOTE | 2019-08-16 12:52 | XRay Report ---
XR chest 1V portable CLINICAL HISTORY: Dyspnea COMPARISON STUDY: Chest CT August 04, 2017. Chest radiograph July 24, 2019. FINDINGS: Median sternotomy wires are noted. There is no pneumothorax or pleural effusion. There is n o evidence for pulmonary edema. Subtle interstitial thickening is unchanged. Moderate cardiomegaly is unchanged. The appearance of the chest is unchanged. Left basilar density is unchanged. IMPRESSION: No acute cardiopulmonary findings. Electronically signed by: Jefferson Landaverde M.D. 08/16/2019 12:51 PM
[2019-08-16 13:04] LABS: Albumin Level 2.5 gm/dl (3.4-5.0); BUN Creatinine Ratio 10.7 (10-20); Calcium 8.6 mg/dl (8.5-10.1); Creatinine Clr Calc Pharmacy 40.1 ml/min; Est GFR (African American) 41.4; Est GFR (Non-African American) 35.7; Potassium 3.9 mmol/L (3.5-5.1)
[2019-08-16 13:11] LABS: INR 1.1 (0.9-1.1); Partial Thromboplastin Ratio 0.9; Partial Thromboplastin Time 25.7 Seconds (21.0-31.0); Prothrombin Time 11.1 Seconds (9.0-12.0)
[2019-08-16 13:20] LABS: Albumin Globulin Ratio 0.5 (0.9-2); Bilirubin,Total 0.3 mg/dl (0.2-1); Globulin 4.6 gm/dl (2.5-4.0); Total Protein 7.1 gm/dl (6.4-8.2); Troponin I 0.098 ng/ml (0-0.045)
--- NOTE | 2019-08-16 13:46 | Emergency Department Note ---
Entered by Susie Medrano acting as a scribe for History of Present Illness General Chief complaint: Chest Pain Time Seen by Provider: 08/16/19 12:09 Source: patient History of Present Illness Onset (ago): day(s) (couple) Location: chest Pain Consistency: + constant Maximum Pain Intensity: 8 Quality: + other (chest tightness) Associated symptoms: no cough The patient is an 79 year old female, with past medical history of chronic respiratory failure, diabetes, and CKD, who presents to the Emergency Room with complaints of constant chest tightness over the last couple days. The patient reports she wears 2 L of oxygen at home at all times, and she states she would have trouble breathing without it. The patient denies smoking. The patient denies a cough. She also states that she has been able to get around on her own at home, even with her present symptoms. The patient states she lives by herself in a trailer in [place]. She states she has family nearby and good neighbors. Home Medications Home Medications Medication Instructions Recorded Confirmed Type nitroglycerin [Nitrostat] 0.4 mg SUBLINGUAL DIRECTED PRN 01/06/19 08/16/19 History clopidogrel 75 mg tablet 75 mg PO DAILY #30 tab 03/19/19 08/16/19 Rx aspirin 81 mg tablet,delayed 81 mg PO DAILY #90 tab 04/22/19 08/16/19 Rx release coenzyme Q10 100 mg tablet 100 mg PO QPM #30 tab 04/22/19 08/16/19 Rx famotidine 40 mg tablet 40 mg PO QAM #90 tab 04/22/19 08/16/19 Rx ferrous sulfate 325 mg (65 mg 325 mg PO HS #90 tab 04/22/19 08/16/19 Rx iron) tablet magnesium oxide 400 mg (as 400 mg PO QAM #30 tab 04/22/19 08/16/19 Rx magnesium oxide) tablet mometasone-formoterol HFA 200 2 puff INHALATION BID #13 gm 04/22/19 08/16/19 Rx mcg-5 mcg/actuation aerosol inhaler multivitamin 1 tab PO QAM #60 tab 04/22/19 08/16/19 Rx pantoprazole 40 mg tablet,delayed 40 mg PO DAILY #90 tab 04/22/19 08/16/19 Rx release pravastatin 80 mg tablet 80 mg PO QAM #90 tab 04/22/19 08/16/19 Rx carvedilol [Coreg] 25 mg PO BID 07/19/19 08/16/19 History diltiazem HCl [Cardizem CD] 180 mg PO DAILY 07/19/19 08/16/19 History escitalopram oxalate 5 mg PO DAILY 07/19/19 08/16/19 History isosorbide mononitrate 120 mg PO BID 07/19/19 08/16/19 History torsemide 20 mg PO DAILY 07/19/19 08/16/19 History diclofenac sodium [Voltaren] 4 g EXT QID #1 tube 07/25/19 08/16/19 Rx albuterol sulfate 2.5 mg/3 mL 2.5 mg INHALATION Q4 PRN #75 ml 07/26/19 08/16/19 Rx (0.083 %) solution for nebulization albuterol sulfate 90 mcg/actuation 2 puff INHALATION Q4H PRN #18 gm 07/26/19 1 10/17/18 Rx aerosol inhaler cyanocobalamin (vitamin B-12) 500 500 mcg PO DAILY #30 tab 07/26/19 08/16/19 Rx mcg tablet potassium chloride 20 mEq 20 meq PO DAILY #90 tab 07/26/19 08/16/19 Rx tablet,extended release Januvia 100 mg PO DAILY 08/16/19 08/16/19 History Allergies Allergy/AdvReac Type Severity Reaction Status Date / Time aspirin Allergy Unknown Unknown Verified 08/16/19 12:51 cefuroxime [From Ceftin] Allergy Unknown Unknown Verified 08/16/19 12:51 Cephalosporins Allergy Unknown Unknown Verified 08/16/19 12:51 doxycycline Allergy Unknown UNKNOWN Verified 08/16/19 12:51 hydrocodone Allergy Unknown Unknown Verified 08/16/19 12:51 neomycin Allergy Unknown Unknown Verified 08/16/19 12:51 propoxyphene Allergy Unknown Unknown Verified 08/16/19 12:51 Sulfa (Sulfonamide Allergy Unknown Unknown Verified 08/16/19 12:51 Antibiotics) metformin AdvReac Mild nausea Verified 08/16/19 12:51 vicodin tabs Allergy Unknown Uncoded 08/16/19 12:51 Past Med/Surg History Medical History Anemia Anxiety Arteriosclerotic cardiovascular disease Salazar's esophagus (Acute) CAD (coronary artery disease) CHF (congestive heart failure) (08/04/13) Chronic back pain CKD (chronic kidney disease) stage 3, GFR 30-59 ml/min Degeneration of cervical intervertebral disc Degenerative arthritis of knee (Acute) Diabetes mellitus Disc degeneration, lumbar (Acute) Generalized weakness GERD (gastroesophageal reflux disease) GI bleed HLD (hyperlipidemia) HTN (hypertension) On anticoagulant therapy plavix daily On home oxygen therapy 3L at all times LAINE on CPAP PAF (paroxysmal atrial fibrillation) Pulmonary hypertension, secondary Recurrent falls Renal insufficiency, mild T2DM (type 2 diabetes mellitus) Surgical History H/O aortic valve replacement @ [facility] History of cardiac cath 08/2013 Last cardiac cath demonstrated 2 vessel nonobstructive disease including mild LAD with 40% stenosis in proximal RCA with 40% stenosis and widely patent mid RCA stent. Medical management recommended at time. History of cardiac cath 01/07/2019 coronary angiography, 2 drug eluting stent placed 01/11/19 1 drug eluting stent placed----on plavix History of colonoscopy with polypectomy History of esophagogastroduodenoscopy (EGD) Hiatal hernia and Salazar's History of partial colectomy Secondary to obstruction History of percutaneous coronary intervention 05/24/2011 cardiac cath demonstrated severe single-vessel CAD with 70% mild RCA stenosis treated with PCI using MONTSE History of tooth extraction all teeth removed History of total hysterectomy with bilateral salpingo-oophorectomy (BSO) Family History Sister Cancer Breast cancer Myocardial infarction Brother Myocardial infarction Other Adopted Unknown family medical history Social History Preferred Language: Estonian Communication Ability: Effective Dynamotor Repairer Required: No Beliefs That Will Affect Care: Mormon marital status: / Current Living Situation: Alone current occupational status: retired Feels Safe at Home: Yes Smoking Status: Never smoker Second Hand Exposure: Yes ( smoked) ; Hx Alcohol Use: No Hx Substance Use: No caffeine: Yes Dental Care, Regularly: No Physical Activity Frequency: Does not Exercise Seatbelt Use: always Sunscreen Use: No Review of Systems See HPI for pertinent positives & negatives. and A total of 10 systems reviewed and were otherwise negative Physical Exam Vital Signs Vital Signs - 24 hr 08/16/19 11:54 08/16/19 12:27 08/16/19 13:26 Temperature 37.0 C 37.3 C Temperature Source Oral Oral Pulse Rate 110 H Pulse Rate [Right Finger] 106 H Pulse Rhythm Irregular Respiratory Rate 30 H 19 26 H Respiratory Effort / Characteristics Spontaneous Accessory Muscle Use Non-Labored Spontaneous Accessory Muscle Use Respiratory Depth Shallow Blood Pressure 137/109 H Blood Pressure [Right Arm] 159/80 H Blood Pressure Mean 118 Blood Pressure Mean [Right Arm] 106 Blood Pressure Position Lying Blood Pressure Position [Right Arm] Lying Pulse Oximetry 94 94 94 Oxygen Delivery Method Nasal Cannula Nasal Cannula Nasal Cannula Oxygen Flow Rate 4 2 2 Sepsis Recent Fever Within 48 Hours No Sepsis Action Taken by Nursing No Action Required CONSTITUTIONAL/VITAL SIGNS: Reviewed / noted above. GENERAL: Non-toxic in appearance. INTEGUMENTARY: Warm, dry, and [place]. HEAD: Normocephalic. EYES: without scleral icterus or trauma. ENT/OROPHARYNX: clear and moist. LYMPHADENOPATHY/NECK: Is supple without lymphadenopathy or meningismus. RESPIRATORY: Diminished breath sounds bilaterally. No respiratory distress. CARDIOVASCULAR: Regular rate and rhythm. GI/ABDOMEN: Soft and nontender. No organomegaly or pulsatile mass. No rebound or guarding. Normal bowel sounds. EXTREMITIES: Warm and well perfused. Mild bilateral pedal edema. BACK: No CVA tenderness. NEUROLOGICAL: Intact without focal deficits. PSYCHIATRIC: normal affect. MUSCULOSKELETAL: Normally developed with good muscle tone. Course Course 1210: Past medical records reviewed. The patient was evaluated in room A12B. A complete history and physical exam was performed. 1340: I reviewed the patient's case with Dr. Perera-Dimitri [facility]. Dr. Perera will evaluate the patient for further management. Consultations Consultation #1: I reviewed the patient's case with Dr. Perera-Dimitri [facility]. Dr. Perera will evaluate the patient for further management. Time: 13:40 Administered Medications Discontinued Medications Albuterol (Duoneb) 3 ml INH NOW STA Stop: 08/16/19 12:16 Last Admin: 08/16/19 12:25 Dose: 3 ml Documented by: [id number] Medical Decision Making Differential Diagnosis Differential diagnosis: Etiologies such as infections, reactive airway disease, pneumonia, pneumothorax, COPD, CHF, cardiac ischemia, pulmonary embolism, musculoskeletal, gastrointestinal, as well as others were entertained. Medical Records Attestation: I reviewed the patient's medical records. Home Medications Current Medication List: was personally reviewed by me Laboratory Data Attestation: I reviewed the patient's lab results. Result diagrams: 08/16/19 12:30 08/16/19 12:30 Lab Results 08/16/19 08/16/19 08/16/19 Range/Units 12:30 12:30 12:30 WBC 5.96 (4.8-10.8) K/uL RBC 3.20 L (4.2-5.4) M/uL Hgb 10.3 L (12.0-16.0) g/dL Hct 32.4 L (37-47) % MCV 101.3 H (80-100) fL MCH 32.2 (25-34) pg MCHC 31.8 L (32-36) g/dL RDW Std Deviation 54.6 H (36.4-46.3) fL RDW Coeff of Albert 14.7 H (11.5-14.5) % Plt Count 201 (130-400) K/uL MPV 10.6 H (7.4-10.4) fL Immature Gran % (Auto) 0.3 % Neut % (Auto) 77.8 % Lymph % (Auto) 11.1 % [place] % (Auto) 10.2 % Eos % (Auto) 0.3 % Baso % (Auto) 0.3 % Immature Gran # (Auto) 0.02 (0.00-0.02) K/uL Neut # (Auto) 4.63 (1.4-6.5) K/uL Lymph # (Auto) 0.66 L (1.2-3.4) K/uL [place] # (Auto) 0.61 H (0.11-0.59) K/uL Eos # (Auto) 0.02 (0-0.5) K/uL Baso # (Auto) 0.02 (0-0.2) K/uL PT 11.1 (9.0-12.0) Seconds INR 1.1 (0.9-1.1) APTT 25.7 (21.0-31.0) Seconds PTT Ratio 0.9 Sodium 138 (136-145) mmol/L Potassium 3.9 (3.5-5.1) mmol/L Chloride 106 (98-107) mmol/L Carbon Dioxide 26 (21-32) mmol/L Anion Gap 6.0 (3-11) BUN 15 (7-18) mg/dl Creatinine 1.39 H (0.6-1.2) mg/dl Est Cr Clr Drug Dosing 40.1 ml/min Est GFR ( Amer) 41.4 Est GFR (Non-Af Amer) 35.7 BUN/Creatinine Ratio 10.7 (10-20) Glucose 189 H (70-99) mg/dl Calcium 8.6 (8.5-10.1) mg/dl Total Bilirubin 0.3 (0.2-1) mg/dl AST 18 (15-37) U/L ALT 17 (12-78) U/L Alkaline Phosphatase 74 (45-117) U/L Troponin I 0.098 H* (0-0.045) ng/ml Total Protein 7.1 (6.4-8.2) gm/dl Albumin 2.5 L (3.4-5.0) gm/dl Globulin 4.6 H (2.5-4.0) gm/dl Albumin/Globulin Ratio 0.5 L (0.9-2) Imaging Data Radiologist's Impression: Radiology results as stated below per my review and the radiologist's interpretation: XR chest 1V portable CLINICAL HISTORY: Dyspnea COMPARISON STUDY: Chest CT August 04, 2017. Chest radiograph July 24, 2019. FINDINGS: Median sternotomy wires are noted. There is no pneumothorax or pleural effusion. There is no evidence for pulmonary edema. Subtle interstitial thickening is unchanged. Moderate cardiomegaly is unchanged. The appearance of the chest is unchanged. Left basilar density is unchanged. IMPRESSION: No acute cardiopulmonary findings. Electronically signed by: Jefferson Landaverde M.D. 08/16/2019 12:51 PM ECG Data Attestation: I personally reviewed and interpreted this ECG as follows: Indication: + chest pain Rate (beats per minute): 111 Rhythm: + atrial fibrillation ECG Intervals/blocks: + Normal QT-c ECG ST segments: no ST elevation ECG Findings: no PACs and no PVCs Blood Pressure Blood Pressure Findings: Elevated blood pressure Blood Pressure Disposition: further management by hospitalist JERROD Narrative This is an 79-year-old female who presents to the ED with a chief complaint of chest pain and tightness. She states that she has had the symptoms for the past couple of days. She is somewhat of a poor historian. She does have a history of COPD. She uses 2 L oxygen at home. Her oxygen saturations here are 94% on 4 L. She has no other complaints. Her physical exam reveals some diminished breath sounds bilaterally but otherwise nothing significant. The patient's CBC and chemistry panel was unremarkable. Troponin was elevated at 0.098. Chest x- ray is negative for acute disease. Twelve-lead EKG reveals A. fib at a rate of 111 without acute injury. The patient does report a history of A. fib but is not on anticoagulation. She does take baby aspirin and Plavix on her med list although aspirin is also listed as an allergy. The patient was sleeping upon my reassessment. She states that she no longer has the chest pain. I spoke with the hospitalist about further evaluation of the patient's elevated troponin and symptoms. Impression & Plan Chest pain, Elevated troponin Discharge Plan Visit Data Chief Complaint: Chest Pain ED Provider: Herrera Castillo Discharge Problem: Chest pain, Elevated troponin Patient Disposition: Being Evaluated by Hospitalist Forms Stand Alone Forms: Call Back Authorization, My [facility] Prescriptions Prescriptions: No Action albuterol sulfate 2.5 mg /3 mL (0.083 %) solution for nebulization 2.5 mg inhalation Q4 PRN (Reason: Wheezing or Tightness in Chest) Qty: 75 RF: 5 albuterol sulfate [Ventolin HFA] 90 mcg/actuation HFA aerosol inhaler 2 puff inhalation Q4H PRN (Reason: Shortness Of Breath Or Wheezing) Qty: 18 RF: 5 potassium chloride 20 mEq tablet extended release 20 meq PO DAILY Qty: 90 RF: 3 cyanocobalamin (vitamin B-12) 500 mcg tablet 500 mcg PO DAILY Qty: 30 RF: 4 aspirin 81 mg tablet,delayed release (DR/EC) 81 mg PO DAILY Qty: 90 RF: 0 coenzyme Q10 100 mg tablet 100 mg PO QPM Qty: 30 RF: 0 famotidine 40 mg tablet 40 mg PO QAM Qty: 90 RF: 0 ferrous sulfate 325 mg (65 mg iron) tablet 325 mg PO HS Qty: 90 RF: 0 magnesium oxide 400 mg magnesium tablet 400 mg PO QAM Qty: 30 RF: 0 Dulera 200-5 mcg/actuation HFA aerosol inhaler 2 puff inhalation BID Qty: 13 RF: 0 multivitamin tablet 1 tab PO QAM Qty: 60 RF: 0 pantoprazole [Protonix] 40 mg tablet,delayed release (DR/EC) 40 mg PO DAILY Qty: 90 RF: 0 pravastatin 80 mg tablet 80 mg PO QAM Qty: 90 RF: 0 clopidogrel 75 mg tablet 75 mg PO DAILY Qty: 30 RF: 2 nitroglycerin [Nitrostat] 0.4 mg tablet, sublingual 0.4 mg sublingual DIRECTED PRN (Reason: Chest Pain) RF: 0 carvedilol [Coreg] 25 mg tablet 25 mg PO BID RF: 0 torsemide 20 mg tablet 20 mg PO DAILY RF: 0 diltiazem HCl [Cardizem CD] 180 mg capsule,extended release 24hr 180 mg PO DAILY RF: 0 isosorbide mononitrate 120 mg tablet extended release 24 hr 120 mg PO BID RF: 0 escitalopram oxalate 5 mg tablet 5 mg PO DAILY RF: 0 diclofenac sodium [Voltaren] 1 % Gel 4 g EXT QID Qty: 1 RF: 2 Januvia 100 mg tablet 100 mg PO DAILY RF: 0 Referrals Referrals: Hilaria Myers CRNP [Primary Care Provider] - Discharge Problem: Chest pain Qualifiers: Chest pain type: unspecified Qualified Code(s): R07.9 - Chest pain, unspecified The scribe's documentation has been prepared under my direction and personally reviewed by me in its entirety. I confirm that the note above accurately reflects all work, treatment, procedures, and medical decision making performed by me.
[2019-08-16] MEDS ORDERED: dilTIAZem HCL 30 MG TAB PO ONE (14:24)
--- NOTE | 2019-08-16 14:34 | History & Physical Report ---
Date of Service August 16, 2019 Assessment & Plan (1) Chest pain: Admit tele Chest pain is atypical Cardiology consult Trend trops PRN ntg Continue isosorbide. (2) Elevated troponin: (3) T2DM (type 2 diabetes mellitus): ADA diet Continue Januvia Sliding scale insulin coverage (4) PAF (paroxysmal atrial fibrillation): In A.fib at this time. rate in the 110's. Ordered 30mg po diltiazem now Continue Cardizem CD 180mg daily. Previous anticoagulation with warfarin resulted in a GI bleed with shock. She is known to have extensive diverticulosis. No anticoagulation has been used since that time. I did order DVT prophylaxis with heparin sub-q and SCDs. (5) CKD (chronic kidney disease) stage 3, GFR 30-59 ml/min: Creat 1.39 (6) Chronic respiratory failure with hypoxia, on home O2 therapy: Continue Albuterol nebs prn Continue oxygen and Symbicort (7) CAD (coronary artery disease): 07/20 - nuclear stress test neg for ischemia Continue aspirin, plavix, and coreg. (8) HLD (hyperlipidemia): continue pravastatin History of Present Illness 79 y/o female presented to the ED with a constant, non-radiating chest tightness over the previous 48 hours. This has been associated with SOB. She normally wears 2 L nc oxygen at home. No F/C, cough, N/V/D, syncope, or headache. She lives independently. I see on her chart that she had a nuclear stress test in July which was negative for ischemia. She follows with [facility] cardiology. Primary Care Provider: TITO Mejia Allergies Allergy/AdvReac Type Severity Reaction Status Date / Time aspirin Allergy Unknown Unknown Verified 08/16/19 12:51 cefuroxime [From Ceftin] Allergy Unknown Unknown Verified 08/16/19 12:51 Cephalosporins Allergy Unknown Unknown Verified 08/16/19 12:51 doxycycline Allergy Unknown UNKNOWN Verified 08/16/19 12:51 hydrocodone Allergy Unknown Unknown Verified 08/16/19 12:51 neomycin Allergy Unknown Unknown Verified 08/16/19 12:51 propoxyphene Allergy Unknown Unknown Verified 08/16/19 12:51 Sulfa (Sulfonamide Allergy Unknown Unknown Verified 08/16/19 12:51 Antibiotics) metformin AdvReac Mild nausea Verified 08/16/19 12:51 vicodin tabs Allergy Unknown Uncoded 08/16/19 12:51 Home Medications Home Medications Medication Instructions Recorded Confirmed Type nitroglycerin [Nitrostat] 0.4 mg SUBLINGUAL DIRECTED PRN 01/06/19 08/16/19 History clopidogrel 75 mg tablet 75 mg PO DAILY #30 tab 03/19/19 08/16/19 Rx aspirin 81 mg tablet,delayed 81 mg PO DAILY #90 tab 04/22/19 08/16/19 Rx release coenzyme Q10 100 mg tablet 100 mg PO QPM #30 tab 04/22/19 08/16/19 Rx famotidine 40 mg tablet 40 mg PO QAM #90 tab 04/22/19 08/16/19 Rx ferrous sulfate 325 mg (65 mg 325 mg PO HS #90 tab 04/22/19 08/16/19 Rx iron) tablet magnesium oxide 400 mg (as 400 mg PO QAM #30 tab 04/22/19 08/16/19 Rx magnesium oxide) tablet mometasone-formoterol HFA 200 2 puff INHALATION BID #13 gm 04/22/19 08/16/19 Rx mcg-5 mcg/actuation aerosol inhaler multivitamin 1 tab PO QAM #60 tab 04/22/19 08/16/19 Rx pantoprazole 40 mg tablet,delayed 40 mg PO DAILY #90 tab 04/22/19 08/16/19 Rx release pravastatin 80 mg tablet 80 mg PO QAM #90 tab 04/22/19 08/16/19 Rx carvedilol [Coreg] 25 mg PO BID 07/19/19 08/16/19 History diltiazem HCl [Cardizem CD] 180 mg PO DAILY 07/19/19 08/16/19 History escitalopram oxalate 5 mg PO DAILY 07/19/19 08/16/19 History isosorbide mononitrate 120 mg PO BID 07/19/19 08/16/19 History torsemide 20 mg PO DAILY 07/19/19 08/16/19 History diclofenac sodium [Voltaren] 4 g EXT QID #1 tube 07/25/19 08/16/19 Rx albuterol sulfate 2.5 mg/3 mL 2.5 mg INHALATION Q4 PRN #75 ml 07/26/19 08/16/19 Rx (0.083 %) solution for nebulization albuterol sulfate 90 mcg/actuation 2 puff INHALATION Q4H PRN #18 gm 07/26/19 08/16/19 Rx aerosol inhaler cyanocobalamin (vitamin B-12) 500 500 mcg PO DAILY #30 tab 07/26/19 08/16/19 Rx mcg tablet potassium chloride 20 mEq 20 meq PO DAILY #90 tab 07/26/19 08/16/19 Rx tablet,extended release Januvia 100 mg PO DAILY 08/16/19 08/16/19 History Past Med/Surg History Medical History Anemia Anxiety Arteriosclerotic cardiovascular disease Salazar's esophagus (Acute) CAD (coronary artery disease) CHF (congestive heart failure) (08/04/13) Chronic back pain CKD (chronic kidney disease) stage 3, GFR 30-59 ml/min Degeneration of cervical intervertebral disc Degenerative arthritis of knee (Acute) Diabetes mellitus Disc degeneration, lumbar (Acute) Generalized weakness GERD (gastroesophageal reflux disease) GI bleed HLD (hyperlipidemia) HTN (hypertension) On anticoagulant therapy plavix daily On home oxygen therapy 3L at all times LAINE on CPAP PAF (paroxysmal atrial fibrillation) Pulmonary hypertension, secondary Recurrent falls Renal insufficiency, mild T2DM (type 2 diabetes mellitus) Surgical History H/O aortic valve replacement @ [facility] History of cardiac cath 08/2013 Last cardiac cath demonstrated 2 vessel nonobstructive disease including mild LAD with 40% stenosis in proximal RCA with 40% stenosis and widely patent mid RCA stent. Medical management recommended at time. History of cardiac cath 01/07/2019 coronary angiography, 2 drug eluting stent placed 01/11/19 1 drug eluting stent placed----on plavix History of colonoscopy with polypectomy History of esophagogastroduodenoscopy (EGD) Hiatal hernia and Salazar's History of partial colectomy Secondary to obstruction History of percutaneous coronary intervention 05/24/2011 cardiac cath demonstrated severe single-vessel CAD with 70% mild RCA stenosis treated with PCI using MONTSE History of tooth extraction all teeth removed History of total hysterectomy with bilateral salpingo-oophorectomy (BSO) Family History Sister Cancer Breast cancer Myocardial infarction Brother Myocardial infarction Other Adopted Unknown family medical history Social History Preferred Language: Arabic Communication Ability: Effective Marketing Information Analyst Required: No Beliefs That Will Affect Care: Presybeterian marital status: / Current Living Situation: Alone current occupational status: retired Feels Safe at Home: Yes Smoking Status: Never smoker Second Hand Exposure: Yes ( smoked) ; Hx Alcohol Use: No Hx Substance Use: No caffeine: Yes Dental Care, Regularly: No Physical Activity Frequency: Does not Exercise Seatbelt Use: always Sunscreen Use: No Review of Systems Review of Systems: Constitutional- no fever; no weight loss Eyes- no acute visual changes ENT- no sinus drainage; no pharyngitis Pulmonary- no cough, no wheezing. Cardiac- in HPI GI- no nausea, no vomiting, no diarrhea, no melena, no hematochezia - no dysuria, no hematuria Musculoskeletal- no arthralgias, no myalgias Derm- no rashes, no new skin lesions. Hematologic- no unusual bruising, no unusual bleeding Lymphatics- no adenopathy Endocrine- no polyuria or polydipsia; no heat or cold intolerance Neuro- no headaches, no focal neurologic symptoms Psych- no anxiety, no depression Physical Exam Physical Exam: General- adult female, NAD Head- atraumatic Eyes- PERRL, EOMI, anicteric ENT- oropharynx clear Neck- supple, no JVD, no adenopathy, no thyromegaly; carotids +2/2, no bruits appreciated Lungs- decreased breath sounds at the bases b/l. No crackles, wheezes or rhonchi. Heart- Irreg, no murmur, no gallop, no rub appreciated Abdomen- normal bowel sounds, soft, nontender. Extremities- +1 pitting edema b/l ankles. no calf tenderness; peripheral pulses intact Neuro- alert, oriented x 3; PERRL, EOMI; yarn man II-XII grossly intact, non-focal. Skin- warm & dry. Multiple scabbed ulcers on her upper chest and shoulder b/l. Patient reports that she "picks at these areas". Results & Data Vital Signs (Past 12 Hours) Vital Signs Temp Pulse Pulse Resp BP BP Pulse Ox 08/16/19 13:26 37.3 C 106 H 26 H 159/80 H 94 08/16/19 12:27 19 94 08/16/19 11:54 37.0 C 110 H 30 H 137/109 H 94 Laboratory Results Laboratory Results WBC 5.96 K/uL (4.8-10.8) 08/16/19 12:30 RBC 3.20 M/uL (4.2-5.4) L 08/16/19 12:30 Hgb 10.3 g/dL (12.0-16.0) L 08/16/19 12:30 Hct 32.4 % (37-47) L 08/16/19 12:30 MCV 101.3 fL (80-100) H 08/16/19 12:30 MCH 32.2 pg (25-34) 08/16/19 12:30 MCHC 31.8 g/dL (32-36) L 08/16/19 12:30 RDW Std Deviation 54.6 fL (36.4-46.3) H 08/16/19 12:30 RDW Coeff of Albert 14.7 % (11.5-14.5) H 08/16/19 12:30 Plt Count 201 K/uL (130-400) 08/16/19 12:30 MPV 10.6 fL (7.4-10.4) H 08/16/19 12:30 Immature Gran % (Auto) 0.3 % 08/16/19 12:30 Neut % (Auto) 77.8 % 08/16/19 12:30 Lymph % (Auto) 11.1 % 08/16/19 12:30 Villalba % (Auto) 10.2 % 08/16/19 12:30 Eos % (Auto) 0.3 % 08/16/19 12:30 Baso % (Auto) 0.3 % 08/16/19 12:30 Immature Gran # (Auto) 0.02 K/uL (0.00-0.02) 08/16/19 12:30 Neut # (Auto) 4.63 K/uL (1.4-6.5) 08/16/19 12:30 Lymph # (Auto) 0.66 K/uL (1.2-3.4) L 08/16/19 12:30 Villalba # (Auto) 0.61 K/uL (0.11-0.59) H 08/16/19 12:30 Eos # (Auto) 0.02 K/uL (0-0.5) 08/16/19 12:30 Baso # (Auto) 0.02 K/uL (0-0.2) 08/16/19 12:30 PT 11.1 Seconds (9.0-12.0) 08/16/19 12:30 INR 1.1 (0.9-1.1) 08/16/19 12:30 APTT 25.7 Seconds (21.0-31.0) 08/16/19 12:30 PTT Ratio 0.9 08/16/19 12:30 Sodium 138 mmol/L (136-145) 08/16/19 12:30 Potassium 3.9 mmol/L (3.5-5.1) 08/16/19 12:30 Chloride 106 mmol/L (98-107) 08/16/19 12:30 Carbon Dioxide 26 mmol/L (21-32) 08/16/19 12:30 Anion Gap 6.0 (3-11) 08/16/19 12:30 BUN 15 mg/dl (7-18) 08/16/19 12:30 Creatinine 1.39 mg/dl (0.6-1.2) H 08/16/19 12:30 Est Cr Clr Drug Dosing 40.1 ml/min 08/16/19 12:30 Est GFR ( Amer) 41.4 08/16/19 12:30 Est GFR (Non-Af Amer) 35.7 08/16/19 12:30 BUN/Creatinine Ratio 10.7 (10-20) 08/16/19 12:30 Glucose 189 mg/dl (70-99) H 08/16/19 12:30 Calcium 8.6 mg/dl (8.5-10.1) 08/16/19 12:30 Total Bilirubin 0.3 mg/dl (0.2-1) 08/16/19 12:30 AST 18 U/L (15-37) 08/16/19 12:30 ALT 17 U/L (12-78) 08/16/19 12:30 Alkaline Phosphatase 74 U/L (45-117) 08/16/19 12:30 Troponin I 0.098 ng/ml (0-0.045) H* 08/16/19 12:30 Total Protein 7.1 gm/dl (6.4-8.2) 08/16/19 12:30 Albumin 2.5 gm/dl (3.4-5.0) L 08/16/19 12:30 Globulin 4.6 gm/dl (2.5-4.0) H 08/16/19 12:30 Albumin/Globulin Ratio 0.5 (0.9-2) L 08/16/19 12:30 Diagnostic Findings [place], [place] [phone] XRay Report Patient: GLO GLASER BAdmit Date: 08/16/19 MR#: [id number]: [address] Acct ID:[id number]: Date: 1940City Zip: [place] [address] Age: 79Location: ED Sex: F Room/Bed: Att Phy:Diagnosis: CHEST PAIN Corie Phy: Hilaria Myers CRNPService Date: 08/16/19 Fam Phy:Interpreting Phy: Jefferson Landaverde MD Admit Phy: Ordering Phy: Herrera Castillo D.O. cc: ~ XR chest 1V portable CLINICAL HISTORY: Dyspnea COMPARISON STUDY: Chest CT August 04, 2017. Chest radiograph July 24, 2019. FINDINGS: Median sternotomy wires are noted. There is no pneumothorax or pleural effusion. There is no evidence for pulmonary edema. Subtle interstitial thickening is unchanged. Moderate cardiomegaly is unchanged. The appearance of the chest is unchanged. Left basilar density is unchanged. IMPRESSION: No acute cardiopulmonary findings. Electronically signed by: Jefferson Landaverde M.D. 08/16/2019 12:51 PM Dictated: 08/16/19 1249 Transcribed: 08/16/19 1249 Code Status & VTE Plan VTE Prophylaxis Plan VTE Prophylaxis will be ordered: Yes PG Care Time/CCT Total # of Minutes Spent Total Time Spent: 55 Total Time Spent with Patient: Total time spent is greater than 50% in coordination of care (as documented) at patient's floor/unit and/or counseling patient: (1) Chest pain Chest pain type: unspecified Qualified Code(s): R07.9 - Chest pain, unspecified (2) T2DM (type 2 diabetes mellitus) Diabetes mellitus [facility] insulin use: without truck terminal manager use (3) HLD (hyperlipidemia) Hyperlipidemia type: pure hypercholesterolemia Qualified Code(s): E78.00 - Pure hypercholesterolemia, unspecified; E78.0 - Pure hypercholesterolemia (4) CAD (coronary artery disease) Coronary Disease-Associated Artery/Lesion type: [place] artery [place] vs. transplanted heart: [place] heart Associated angina: angina presence unspecified Qualified Code(s): I25.10 - Atherosclerotic heart disease of [place] coronary artery without angina pectoris
[2019-08-16] MEDS ORDERED: DEXTROSE 50% 50 ML SYRINGE IV PRN (16:08)
[2019-08-16] MEDS ORDERED: GLUCAGON FOR INJ 1 MG VIAL SQ PRN (16:08)
[2019-08-16] MEDS ORDERED: GLUCOSE 40% GEL 15 GM TUBE PO PRN (16:08)
[2019-08-16] MEDS ORDERED: NITROGLYCERIN SL 0.4 MG/TAB TAB SL PRN (16:08)
[2019-08-16] MEDS ORDERED: ALBUTEROL 0.083% NEBU SOLN 3 ML VIAL NEB PRN (16:08)
[2019-08-16] MEDS ORDERED: CARBOHYDRATES FOR HYPOGLYCEMIA PO PRN (16:08)
[2019-08-16] MEDS ORDERED: GLUCOSE 10 TABS/TUBE PO PRN (16:08)
--- NOTE | 2019-08-16 16:56 | Critical Care Consultation ---
Date of Consultation August 16, 2019 History of Present Illness Attending Physician: Edgar Perera, History of Present Illness Patient is 79-year-old female with past medical history of type 2 diabetes, paroxysmal atrial fibrillation, chronic kidney disease stage III, chronic respiratory failure with hypoxia on home O2, coronary artery disease, hyperlipidemia Allergies Allergy/AdvReac Type Severity Reaction Status Date / Time aspirin Allergy Unknown Unknown Verified 08/16/19 12:51 cefuroxime [From Ceftin] Allergy Unknown Unknown Verified 08/16/19 12:51 Cephalosporins Allergy Unknown Unknown Verified 08/16/19 12:51 doxycycline Allergy Unknown UNKNOWN Verified 08/16/19 12:51 hydrocodone Allergy Unknown Unknown Verified 08/16/19 12:51 neomycin Allergy Unknown Unknown Verified 08/16/19 12:51 propoxyphene Allergy Unknown Unknown Verified 08/16/19 12:51 Sulfa (Sulfonamide Allergy Unknown Unknown Verified 08/16/19 12:51 Antibiotics) metformin AdvReac Mild nausea Verified 08/16/19 12:51 vicodin tabs Allergy Unknown Uncoded 08/16/19 12:51 Home Medications Home Medications Medication Instructions Recorded Confirmed Type nitroglycerin [Nitrostat] 0.4 mg SUBLINGUAL DIRECTED PRN 01/06/19 08/16/19 History clopidogrel 75 mg tablet 75 mg PO DAILY #30 tab 03/19/19 08/16/19 Rx aspirin 81 mg tablet,delayed 81 mg PO DAILY #90 tab 04/22/19 08/16/19 Rx release coenzyme Q10 100 mg tablet 100 mg PO QPM #30 tab 04/22/19 08/16/19 Rx famotidine 40 mg tablet 40 mg PO QAM #90 tab 04/22/19 08/16/19 Rx ferrous sulfate 325 mg (65 mg 325 mg PO HS #90 tab 04/22/19 08/16/19 Rx iron) tablet magnesium oxide 400 mg (as 400 mg PO QAM #30 tab 04/22/19 08/16/19 Rx magnesium oxide) tablet mometasone-formoterol HFA 200 2 puff INHALATION BID #13 gm 04/22/19 08/16/19 Rx mcg-5 mcg/actuation aerosol inhaler multivitamin 1 tab PO QAM #60 tab 04/22/19 08/16/19 Rx pantoprazole 40 mg tablet,delayed 40 mg PO DAILY #90 tab 04/22/19 08/16/19 Rx release pravastatin 80 mg tablet 80 mg PO QAM #90 tab 04/22/19 08/16/19 Rx carvedilol [Coreg] 25 mg PO BID 07/19/19 08/16/19 History diltiazem HCl [Cardizem CD] 180 mg PO DAILY 07/19/19 08/16/19 History escitalopram oxalate 5 mg PO DAILY 07/19/19 08/16/19 History isosorbide mononitrate 120 mg PO BID 07/19/19 08/16/19 History torsemide 20 mg PO DAILY 07/19/19 08/16/19 History diclofenac sodium [Voltaren] 4 g EXT QID #1 tube 07/25/19 08/16/19 Rx albuterol sulfate 2.5 mg/3 mL 2.5 mg INHALATION Q4 PRN #75 ml 07/26/19 08/16/19 Rx (0.083 %) solution for nebulization albuterol sulfate 90 mcg/actuation 2 puff INHALATION Q4H PRN #18 gm 07/26/19 08/16/19 Rx aerosol inhaler cyanocobalamin (vitamin B-12) 500 500 mcg PO DAILY #30 tab 07/26/19 08/16/19 Rx mcg tablet potassium chloride 20 mEq 20 meq PO DAILY #90 tab 07/26/19 08/16/19 Rx tablet,extended release Januvia 100 mg PO DAILY 08/16/19 08/16/19 History Patient History Medical History (Updated 08/16/19 @ 15:02 by Edgar Perera DO) Anemia Anxiety Arteriosclerotic cardiovascular disease Salazar's esophagus (Acute) CAD (coronary artery disease) CHF (congestive heart failure) (08/04/13) Chronic back pain CKD (chronic kidney disease) stage 3, GFR 30-59 ml/min Degeneration of cervical intervertebral disc Degenerative arthritis of knee (Acute) Diabetes mellitus Disc degeneration, lumbar (Acute) Generalized weakness GERD (gastroesophageal reflux disease) GI bleed HLD (hyperlipidemia) HTN (hypertension) On anticoagulant therapy plavix daily On home oxygen therapy 3L at all times LAINE on CPAP PAF (paroxysmal atrial fibrillation) Pulmonary hypertension, secondary Recurrent falls Renal insufficiency, mild T2DM (type 2 diabetes mellitus) Surgical History H/O aortic valve replacement @ [facility] [place] History of cardiac cath 08/2013 Last cardiac cath demonstrated 2 vessel nonobstructive disease including mild LAD with 40% stenosis in proximal RCA with 40% stenosis and widely patent mid RCA stent. Medical management recommended at time. History of cardiac cath 01/07/2019 coronary angiography, 2 drug eluting stent placed 01/11/19 1 drug eluting stent placed----on plavix History of colonoscopy with polypectomy History of esophagogastroduodenoscopy (EGD) Hiatal hernia and Salazar's History of partial colectomy Secondary to obstruction History of percutaneous coronary intervention 05/24/2011 cardiac cath demonstrated severe single-vessel CAD with 70% mild RCA stenosis treated with PCI using MONTSE History of tooth extraction all teeth removed History of total hysterectomy with bilateral salpingo-oophorectomy (BSO) Family History Sister Cancer Breast cancer Myocardial infarction Brother Myocardial infarction Other Adopted Unknown family medical history Social History Preferred Language: Ethiopian Communication Ability: Effective Route Delivery Clerk Required: No Beliefs That Will Affect Care: None marital status: / Current Living Situation: Alone Current Living Situation Comment: lives in a trailer current occupational status: retired Feels Safe at Home: Yes Smoking Status: Never smoker Second Hand Exposure: Yes ( smoked) ; Hx Alcohol Use: No Hx Substance Use: No caffeine: Yes Dental Care, Regularly: No Physical Activity Frequency: Does not Exercise Seatbelt Use: always Sunscreen Use: No Results & Data Vital Signs (Past 12 Hours) Vital Signs Temp Pulse Pulse Resp BP BP BP 08/16/19 16:08 36.3 C L 94 H 24 128/98 08/16/19 14:51 98 H 20 148/91 H 08/16/19 13:26 37.3 C 106 H 26 H 159/80 H 08/16/19 12:27 19 08/16/19 11:54 37.0 C 110 H 30 H 137/109 H Pulse Ox 08/16/19 16:08 97 08/16/19 14:51 96 08/16/19 13:26 94 08/16/19 12:27 94 08/16/19 11:54 94
[2019-08-16] MEDS: INSULIN ASPART 100 UNITS/ML 3 ML PEN SC SCH ×2 (17:23→21:42)
[2019-08-16] MEDS: DICLOFENAC SOD 1% GEL 100 GM TUBE EXT SCH ×2 (17:24→21:37)
--- NOTE | 2019-08-16 18:16 | Cardiology Consultation ---
Date of Consultation August 16, 2019 Assessment & Plan (1) PAF (paroxysmal atrial fibrillation): Patient with past paroxysmal H arrhythmias now currently in atrial fibrillation with mildly elevated ventricular response rate of undetermined duration. Previously determined to be poor high anticoagulation risk heart rates now slowed with medical therapy suspect elevated heart rates are contributing to current complaints. Recent stress testing was negative for ischemia but patient with known coronary disease including past coronary event approximately 7 months. Prior stress testing 1 month ago Review studies and follow patient hospital ultimate goals further heart rate control assess symptoms and signs for further ischemia Continue to follow patient Notable history is however prior to presentation for fall appear to be mechanical in nature with mild injury question of this is contributing to concerns or issues or whether atrial fibrillation contributed to patient's instability. (2) Chest pain: (3) Elevated troponin: (4) CAD (coronary artery disease): (5) Chronic respiratory failure with hypoxia, on home O2 therapy: History of Present Illness Reason for Consultation: Chest pain pressure, atrial fibrillation Attending Physician: Edgar Perera, History of Present Illness Patient is an 79-year-old female with extremely complex past history which includes 1. Aortic valvular disease calcific status post aortic valve replacement Jimbo Abreu 21 mm bioprosthesis June 2008 2. Atherosclerotic coronary disease with past multiple coronary inventions including PCI of mid right coronary artery May 2011, PCI of the proximal mid right coronary artery and mid left anterior descending December 2018 3. Paroxysmal atrial fibrillation with poor anticoagulation risk 4. Chronic anemia 5. Past profound GI bleed felt to be diverticular in origin 6. Chronic obstructive lung disease O2 dependent/possible sleep apnea Patient presents this admission having felt poorly recently. She notes symptoms of chest pressure off and on times multiple months with recent hospitalization in mid July for similar complaints. Stress nuclear imaging at that time was negative for ischemia. On further discussion with the patient she admits to a fall this morning and rising from the commode felt unsteady and fell to her knees with contusion of the knee no head strike. Was down for approximately 10 minutes before being able to rise without help. Notes no sense of tachypalpitations notes no overt syncope. Has had intermittent chest pressure and tightness for times multiple years. Underwent coronary intervention in December of this year with slight improvement in symptoms but no resolve. She denies recent fevers chills has been aware of possible blood in stools in the last 24 hours. But no overt bleeding. Has been taking medications as prescribed including all medications on discharge of 07/25/2019 Patient on ER presentation was noted to have mildly elevated troponin as well as newly observed atrial fibrillation with elevated ventricular response rate. Heart rate is slowed with additional dose of diltiazem she is referred now for further evaluation. Currently denies any chest pain or discomfort Allergies Allergy/AdvReac Type Severity Reaction Status Date / Time aspirin Allergy Unknown Unknown Verified 08/16/19 12:51 cefuroxime [From Ceftin] Allergy Unknown Unknown Verified 08/16/19 12:51 Cephalosporins Allergy Unknown Unknown Verified 08/16/19 12:51 doxycycline Allergy Unknown UNKNOWN Verified 08/16/19 12:51 hydrocodone Allergy Unknown Unknown Verified 08/16/19 12:51 neomycin Allergy Unknown Unknown Verified 08/16/19 12:51 propoxyphene Allergy Unknown Unknown Verified 08/16/19 12:51 Sulfa (Sulfonamide Allergy Unknown Unknown Verified 08/16/19 12:51 Antibiotics) metformin AdvReac Mild nausea Verified 08/16/19 12:51 vicodin tabs Allergy Unknown Uncoded 08/16/19 12:51 Home Medications Home Medications Medication Instructions Recorded Confirmed Type nitroglycerin [Nitrostat] 0.4 mg SUBLINGUAL DIRECTED PRN 01/06/19 08/16/19 History clopidogrel 75 mg tablet 75 mg PO DAILY #30 tab 03/19/19 08/16/19 Rx aspirin 81 mg tablet,delayed 81 mg PO DAILY #90 tab 04/22/19 08/16/19 Rx release coenzyme Q10 100 mg tablet 100 mg PO QPM #30 tab 04/22/19 08/16/19 Rx famotidine 40 mg tablet 40 mg PO QAM #90 tab 04/22/19 08/16/19 Rx ferrous sulfate 325 mg (65 mg 325 mg PO HS #90 tab 04/22/19 08/16/19 Rx iron) tablet magnesium oxide 400 mg (as 400 mg PO QAM #30 tab 04/22/19 08/16/19 Rx magnesium oxide) tablet mometasone-formoterol HFA 200 2 puff INHALATION BID #13 gm 04/22/19 08/16/19 Rx mcg-5 mcg/actuation aerosol inhaler multivitamin 1 tab PO QAM #60 tab 04/22/19 08/16/19 Rx pantoprazole 40 mg tablet,delayed 40 mg PO DAILY #90 tab 04/22/19 08/16/19 Rx release pravastatin 80 mg tablet 80 mg PO QAM #90 tab 04/22/19 08/16/19 Rx carvedilol [Coreg] 25 mg PO BID 07/19/19 08/16/19 History diltiazem HCl [Cardizem CD] 180 mg PO DAILY 07/19/19 08/16/19 History escitalopram oxalate 5 mg PO DAILY 07/19/19 08/16/19 History isosorbide mononitrate 120 mg PO BID 07/19/19 08/16/19 History torsemide 20 mg PO DAILY 07/19/19 08/16/19 History diclofenac sodium [Voltaren] 4 g EXT QID #1 tube 07/25/19 08/16/19 Rx albuterol sulfate 2.5 mg/3 mL 2.5 mg INHALATION Q4 PRN #75 ml 07/26/19 08/16/19 Rx (0.083 %) solution for nebulization albuterol sulfate 90 mcg/actuation 2 puff INHALATION Q4H PRN #18 gm 07/26/19 08/16/19 Rx aerosol inhaler cyanocobalamin (vitamin B-12) 500 500 mcg PO DAILY #30 tab 07/26/19 08/16/19 Rx mcg tablet potassium chloride 20 mEq 20 meq PO DAILY #90 tab 07/26/19 08/16/19 Rx tablet,extended release Januvia 100 mg PO DAILY 08/16/19 08/16/19 History Patient History Medical History Anemia Anxiety Arteriosclerotic cardiovascular disease Salazar's esophagus (Acute) CAD (coronary artery disease) CHF (congestive heart failure) (08/04/13) Chronic back pain CKD (chronic kidney disease) stage 3, GFR 30-59 ml/min Degeneration of cervical intervertebral disc Degenerative arthritis of knee (Acute) Diabetes mellitus Disc degeneration, lumbar (Acute) Generalized weakness GERD (gastroesophageal reflux disease) GI bleed HLD (hyperlipidemia) HTN (hypertension) On anticoagulant therapy plavix daily On home oxygen therapy 3L at all times LAINE on CPAP PAF (paroxysmal atrial fibrillation) Pulmonary hypertension, secondary Recurrent falls Renal insufficiency, mild T2DM (type 2 diabetes mellitus) [place] [facility] [place] of cardiac cath 08/2013 Last cardiac cath demonstrated 2 vessel nonobstructive disease including mild LAD with 40% stenosis in proximal RCA with 40% stenosis and widely patent mid RCA stent. Medical management recommended at time. History of cardiac cath 01/07/2019 coronary angiography, 2 drug eluting stent placed 01/11/19 1 drug eluting stent placed----on plavix History of colonoscopy with polypectomy History of esophagogastroduodenoscopy (EGD) Hiatal hernia and Salazar's History of partial colectomy Secondary to obstruction History of percutaneous coronary intervention 05/24/2011 cardiac cath demonstrated severe single-vessel CAD with 70% mild RCA stenosis treated with PCI using MONTSE History of tooth extraction all teeth removed History of total hysterectomy with bilateral salpingo-oophorectomy (BSO) Family History Sister Cancer Breast cancer Myocardial infarction Brother Myocardial infarction Other Adopted Unknown family medical history Social History Preferred Language: Malay Communication Ability: Effective Senior Recruiter Required: No Beliefs That Will Affect Care: None marital status: / Current Living Situation: Alone Current Living Situation Comment: lives in a trailer current occupational status: retired Feels Safe at Home: Yes Smoking Status: Never smoker Second Hand Exposure: Yes ( smoked) ; Hx Alcohol Use: No Hx Substance Use: No caffeine: Yes Dental Care, Regularly: No Physical Activity Frequency: Does not Exercise Seatbelt Use: always Sunscreen Use: No Review of Systems Review of Systems: All systems reviewed & are unremarkable except as noted in HPI & below Physical Exam Constitutional: + ill appearing and + obese; no acute distress Eyes: PERRL, conjunctivae normal, anicteric sclerae ENMT: external ear and nose normal, oropharynx normal Neck: trachea midline, no thyromegaly Respiratory: normal respiratory effort, lungs clear to auscultation Cardiovascular: Rate/Rhythm: + irregularly irregular Heart Sounds: normal S1 and normal S2; no gallop and no murmur Palpation: normal PMI Vessels: normal carotid upstroke and radial pulses present; no JVD and no carotid bruit Extremities: no edema Gastrointestinal (Abdomen): normal bowel sounds, soft, nontender, no hepatosplenomegaly Musculoskeletal: no cyanosis or clubbing, extremities motor strength 5/5 Small contusion on right knee Skin: no rashes, warm and dry Neurologic: PERRL, EOMI, accommodation nl, no face palsy, no dysarthria Patient very vague on history but otherwise answering questions Psychiatric: A+Ox3, euthymic affect Results & Data Vital Signs (Past 12 Hours) Vital Signs Temp Pulse Pulse Resp BP BP BP 08/16/19 16:08 36.3 C L 94 H 24 128/98 08/16/19 14:51 98 H 20 148/91 H 08/16/19 13:26 37.3 C 106 H 26 H 159/80 H 08/16/19 12:27 19 08/16/19 11:54 37.0 C 110 H 30 H 137/109 H Pulse Ox 08/16/19 16:08 97 08/16/19 14:51 96 08/16/19 13:26 94 08/16/19 12:27 94 08/16/19 11:54 94 Laboratory Results Laboratory Results - last 24 hr 08/16/19 08/16/19 08/16/19 12:30 12:30 12:30 WBC 5.96 RBC 3.20 L Hgb 10.3 L Hct 32.4 L MCV 101.3 H MCH 32.2 MCHC 31.8 L RDW Std Deviation 54.6 H RDW Coeff of Albert 14.7 H Plt Count 201 MPV 10.6 H Immature Gran % (Auto) 0.3 Neut % (Auto) 77.8 Lymph % (Auto) 11.1 [place] % (Auto) 10.2 Eos % (Auto) 0.3 Baso % (Auto) 0.3 Immature Gran # (Auto) 0.02 Neut # (Auto) 4.63 Lymph # (Auto) 0.66 L [place] # (Auto) 0.61 H Eos # (Auto) 0.02 Baso # (Auto) 0.02 PT 11.1 INR 1.1 APTT 25.7 PTT Ratio 0.9 Sodium 138 Potassium 3.9 Chloride 106 Carbon Dioxide 26 Anion Gap 6.0 BUN 15 Creatinine 1.39 H Est Cr Clr Drug Dosing 40.1 Est GFR ( Amer) 41.4 Est GFR (Non-Af Amer) 35.7 BUN/Creatinine Ratio 10.7 Glucose 189 H Calcium 8.6 Total Bilirubin 0.3 AST 18 ALT 17 Alkaline Phosphatase 74 Troponin I 0.098 H* Total Protein 7.1 Albumin 2.5 L Globulin 4.6 H Albumin/Globulin Ratio 0.5 L (1) Chest pain Chest pain type: unspecified Qualified Code(s): R07.9 - Chest pain, unspecified (2) CAD (coronary artery disease) Coronary Disease-Associated Artery/Lesion type: [place] artery [place] vs. transplanted heart: [place] heart Associated angina: angina presence unspecified Qualified Code(s): I25.10 - Atherosclerotic heart disease of [place] coronary artery without angina pectoris
[2019-08-16] MEDS ORDERED: NON-FORMULARY MEDICATION (Coenzyme Q10 100 MG) PO SCH (21:00)
[2019-08-16] MEDS: carvediloL 25 MG TAB PO SCH (21:36)
[2019-08-16] MEDS: ISOSORBIDE MONO EXTENDED REL 60 MG TABCR PO SCH (21:36)
[2019-08-16] MEDS: FERROUS SULFATE 325 MG TAB PO SCH (21:36)
[2019-08-16] MEDS: HEPARIN SOD 5,000 UNIT/0.5 ML VIAL SQ SCH (21:38)
[2019-08-16] MEDS: DULERA: ORDER AWAITING ACTION SCH (23:30)
[2019-08-17 04:39] LABS: Hemoglobin 9.6 g/dL (12.0-16.0); Mean Corpuscular Hemoglobin 32.3 pg (25-34); Mean Platelet Volume 10.4 fL (7.4-10.4); Platelet Count 187 K/uL (130-400); RDW Coefficient of Variation 14.2 % (11.5-14.5); RDW Standard Deviation 52.7 fL (36.4-46.3); Red Blood Count 2.97 M/uL (4.2-5.4); White Blood Count 5.23 K/uL (4.8-10.8)
[2019-08-17 04:56] LABS: BUN Creatinine Ratio 14.4 (10-20); Calcium 8.5 mg/dl (8.5-10.1); Creatinine Clr Calc Pharmacy 44.7 ml/min; Est GFR (Non-African American) 40.6; Potassium 3.8 mmol/L (3.5-5.1)
[2019-08-17 05:01] LABS: Troponin I 0.027 ng/ml (0-0.045)
[2019-08-17] MEDS: HEPARIN SOD 5,000 UNIT/0.5 ML VIAL SQ SCH ×3 (05:48→20:50)
[2019-08-17] MEDS: INSULIN ASPART 100 UNITS/ML 3 ML PEN SC SCH ×4 (08:29→20:47)
[2019-08-17] MEDS: ESCITALOPRAM OXALATE 10 MG TAB PO SCH (08:49)
[2019-08-17] MEDS: dilTIAZem HCL 180 MG CAPCR PO SCH (08:49)
[2019-08-17] MEDS: PANTOprazole 40 MG TAB PO SCH (08:49)
[2019-08-17] MEDS: CYANOCOBALAMIN 500 MCG TABLET (VITAMIN B-12) PO SCH (08:49)
[2019-08-17] MEDS: carvediloL 25 MG TAB PO SCH ×2 (08:49→21:53)
[2019-08-17] MEDS: ASPIRIN 81 MG ECTAB PO SCH (08:49)
[2019-08-17] MEDS: FAMOTIDINE 40 MG TABLET PO SCH (08:50)
[2019-08-17] MEDS: PRAVASTATIN SOD 40 MG TAB PO SCH (08:50)
[2019-08-17] MEDS: MULTIVITAMIN TAB PO SCH (08:50)
[2019-08-17] MEDS: ISOSORBIDE MONO EXTENDED REL 60 MG TABCR PO SCH (08:50)
[2019-08-17] MEDS: MAGNESIUM OXIDE 400 MG TAB PO SCH (08:50)
[2019-08-17] MEDS: CLOPIDOGREL BISULFATE 75 MG TAB PO SCH (08:50)
[2019-08-17] MEDS: TORSEMIDE 20 MG TAB PO SCH (08:50)
[2019-08-17] MEDS: POTASSIUM CHLORIDE 20 MEQ TABCR PO SCH (08:50)
[2019-08-17] MEDS: SITAGLIPTIN PHOSPHATE 100 MG TAB PO SCH (08:51)
[2019-08-17] MEDS: DULERA: ORDER AWAITING ACTION SCH (08:51)
[2019-08-17] MEDS: DICLOFENAC SOD 1% GEL 100 GM TUBE EXT SCH ×4 (08:51→20:50)
--- NOTE | 2019-08-17 13:21 | Cardiology Progress Note ---
Date of Service August 17, 2019 Assessment & Plan (1) PAF (paroxysmal atrial fibrillation): Patient with past paroxysmal H arrhythmias now currently in atrial fibrillation with mildly elevated ventricular response rate of undetermined duration. Previously determined to be poor high anticoagulation risk heart rates now slowed with medical therapy suspect elevated heart rates are contributing to current complaints. Recent stress testing was negative for ischemia but patient with known coronary disease including past coronary event approximately 7 months. Prior stress testing 1 month ago Notable history is however prior to presentation for fall appear to be mechanical in nature with mild injury question of this is contributing to concerns or issues or whether atrial fibrillation contributed to patient's instability. Plan patient clinically improved troponins flat to trending downward EKG without acute ischemia Will increase carvedilol to 37.5 mg twice per day, reduce isosorbide to 120 g once per day continue all other medications including oral diltiazem Gradually increase activity on telemetry to assess for rate control Echocardiogram will be reordered Patient remains a poor anticoagulation risk due to past profound GI hemorrhage chronic anemia and multiple falls including yesterday (2) Chest pain: (3) Elevated troponin: (4) CAD (coronary artery disease): (5) Chronic respiratory failure with hypoxia, on home O2 therapy: Subjective Patient feels improved this morning. Looks brighter. Denies any chest pain. Nurse notes 1 episode of chest pressure as well as elevated heart rates with activity. Denies fevers or chills. She remains in atrial fibrillation with variable rate control Physical Exam Constitutional: WD/WN, vitals as above + obese; no acute distress Eyes: PERRL, conjunctivae normal, anicteric sclerae ENMT: external ear and nose normal, oropharynx normal Neck: trachea midline, no thyromegaly Respiratory: normal respiratory effort, lungs clear to auscultation Cardiovascular: Rate/Rhythm: + irregularly irregular Heart Sounds: normal S1 and normal S2; no gallop and no murmur Palpation: normal PMI Vessels: normal carotid upstroke and radial pulses present; no JVD and no carotid bruit Extremities: no edema Gastrointestinal (Abdomen): normal bowel sounds, soft, nontender, no hepatosplenomegaly Musculoskeletal: no cyanosis or clubbing, extremities motor strength 5/5 Skin: no rashes, warm and dry Neurologic: PERRL, EOMI, accommodation nl, no face palsy, no dysarthria Psychiatric: A+Ox3, euthymic affect Results & Data Vital Signs (Past 12 Hours) Vital Signs Temp Pulse Pulse Resp BP BP Pulse Ox 08/17/19 08:00 36.5 C 89 18 128/78 95 08/17/19 04:00 36.7 C 81 20 134/89 95 Laboratory Results Laboratory Results - last 24 hr 08/16/19 08/16/19 08/16/19 16:01 17:30 20:25 WBC RBC Hgb Hct MCV MCH MCHC RDW Std Deviation RDW Coeff of Albert Plt Count MPV Sodium Potassium Chloride Carbon Dioxide Anion Gap BUN Creatinine Est Cr Clr Drug Dosing Est GFR ( Amer) Est GFR (Non-Af Amer) BUN/Creatinine Ratio Glucose POC Glucose 219 H Calcium Troponin I 0.050 H* Nasal Screen MRSA (PCR) Positive A 08/16/19 08/17/19 08/17/19 21:31 04:27 04:27 WBC 5.23 RBC 2.97 L Hgb 9.6 L Hct 30.0 L MCV 101.0 H MCH 32.3 MCHC 32.0 RDW Std Deviation 52.7 H RDW Coeff of Albert 14.2 Plt Count 187 MPV 10.4 Sodium 137 Potassium 3.8 Chloride 107 Carbon Dioxide 27 Anion Gap 3.0 BUN 18 Creatinine 1.25 H Est Cr Clr Drug Dosing 44.7 Est GFR ( Amer) 47.0 Est GFR (Non-Af Amer) 40.6 BUN/Creatinine Ratio 14.4 Glucose 168 H POC Glucose 208 H Calcium 8.5 Troponin I 0.027 Nasal Screen MRSA (PCR) 08/17/19 08/17/19 08/17/19 05:53 07:27 11:33 WBC RBC Hgb Hct MCV MCH MCHC RDW Std Deviation RDW Coeff of Albert Plt Count MPV Sodium Potassium Chloride Carbon Dioxide Anion Gap BUN Creatinine Est Cr Clr Drug Dosing Est GFR ( Amer) Est GFR (Non-Af Amer) BUN/Creatinine Ratio Glucose POC Glucose 162 H 161 H 216 H Calcium Troponin I Nasal Screen MRSA (PCR) (1) CAD (coronary artery disease) Associated angina: angina presence unspecified Coronary Disease-Associated Artery/Lesion type: [place] artery [place] vs. transplanted heart: [place] heart Qualified Code(s): I25.10 - Atherosclerotic heart disease of [place] coronary artery without angina pectoris (2) Chest pain Chest pain type: unspecified Qualified Code(s): R07.9 - Chest pain, unspecified
--- NOTE | 2019-08-17 16:02 | Hospitalist Progress Note ---
Date of Service August 17, 2019 Assessment & Plan (1) Chest pain: Admit tele Troponins x3 with EKG Appreciate cardiology consult Nitroglycerin as needed Replenish electrolytes Increase carvedilol to 37.5 twice a day and reduce isosorbide to 120 g once per day. Continue all other patient medication including oral diltiazem. Echocardiogram pending (2) Elevated troponin: Continue trending down Present on Admission?: Yes (3) T2DM (type 2 diabetes mellitus): ADA diet Continue Januvia Sliding scale insulin coverage (4) PAF (paroxysmal atrial fibrillation): In A.fib at this time. rate in the 110's. Continue Cardizem CD 180mg daily. Previous anticoagulation with warfarin resulted in a GI bleed with shock. She is known to have extensive diverticulosis. No anticoagulation has been used since that time. DVT prophylaxis with heparin sub-q and SCDs. (5) CKD (chronic kidney disease) stage 3, GFR 30-59 ml/min: Creat 1.39, avoid nephrotoxic agents. Continue monitoring creatinine (6) Chronic respiratory failure with hypoxia, on home O2 therapy: Continue Albuterol nebs prn Continue oxygen and Symbicort Supplemental oxygen as needed to keep oxygenation above 92%. (7) CAD (coronary artery disease): 07/20 - nuclear stress test neg for ischemia Continue aspirin, plavix, and coreg. (8) HLD (hyperlipidemia): continue pravastatin Subjective Patient feels improved this morning. Looks brighter. Denies any chest pain. Nurse notes 1 episode of chest pressure as well as elevated heart rates with activity. Denies fevers or chills. She remains in atrial fibrillation with variable rate control Review of Systems Review of Systems: All systems reviewed & are unremarkable except as noted in HPI & below Physical Exam Constitutional: WD/WN, vitals as above + ill appearing and + obese; no acute distress Eyes: PERRL, conjunctivae normal, anicteric sclerae ENMT: external ear and nose normal, oropharynx normal Neck: trachea midline, no thyromegaly Respiratory: normal respiratory effort, lungs clear to auscultation Cardiovascular: Rate/Rhythm: + irregularly irregular Heart Sounds: normal S1 and normal S2; no gallop and no murmur Palpation: normal PMI Vessels: normal carotid upstroke and radial pulses present; no JVD and no carotid bruit Extremities: no edema Gastrointestinal (Abdomen): normal bowel sounds, soft, nontender, no hepatosplenomegaly Musculoskeletal: no cyanosis or clubbing, extremities motor strength 5/5 Skin: no rashes, warm and dry Neurologic: PERRL, EOMI, accommodation nl, no face palsy, no dysarthria Psychiatric: A+Ox3, euthymic affect Results & Data Vital Signs (Past 12 Hours) Vital Signs Temp Pulse Pulse Resp BP BP Pulse Ox 08/17/19 15:35 77 22 95 08/17/19 14:02 96 08/17/19 08:00 36.5 C 89 18 128/78 95 08/17/19 04:00 36.7 C 81 20 134/89 95 PG Care Time/CCT Total # of Minutes Spent Total Time Spent with Patient: Total time spent is greater than 50% in coordination of care (as documented) at patient's floor/unit and/or counseling patient: (1) Chest pain Chest pain type: unspecified Qualified Code(s): R07.9 - Chest pain, unspecified (2) T2DM (type 2 diabetes mellitus) Diabetes mellitus senior living insulin use: without watermaster use (3) CAD (coronary artery disease) Coronary Disease-Associated Artery/Lesion type: [place] artery [place] vs. transplanted heart: [place] heart Associated angina: angina presence unspecified Qualified Code(s): I25.10 - Atherosclerotic heart disease of [place] coronary artery without angina pectoris (4) HLD (hyperlipidemia) Hyperlipidemia type: pure hypercholesterolemia Qualified Code(s): E78.00 - Pure hypercholesterolemia, unspecified; E78.0 - Pure hypercholesterolemia
[2019-08-17] MEDS: ACETAMINOPHEN 325 MG TAB PO PRN (16:40)
[2019-08-17] MEDS: ONDANSETRON INJ 2 MG/ML 2 ML VIAL IV PRN (17:19)
[2019-08-17] MEDS: FERROUS SULFATE 325 MG TAB PO SCH (20:47)
[2019-08-17] MEDS: DOXYCYCLINE HYCLATE 100 MG in DEXTROSE 5% 100 ML IV SCH (21:25)
[2019-08-17] MEDS: FLUTICASONE/SALMETEROL (ADVAIR) 500/50 INH 14 PUFF INH SCH (21:26)
[2019-08-18 06:03] LABS: Hematocrit (blood only) 29.3 % (37-47); Hemoglobin 9.6 g/dL (12.0-16.0); Mean Corpuscular Hemoglobin 32.8 pg (25-34); Mean Corpuscular Hgb Conc 32.8 g/dL (32-36); Mean Platelet Volume 10.7 fL (7.4-10.4); Nucleated RBC # (auto) 0.03 K/uL (0-0); Nucleated RBC % (auto) 0.3 %; Platelet Count 158 K/uL (130-400); RDW Coefficient of Variation 14.7 % (11.5-14.5); RDW Standard Deviation 53.2 fL (36.4-46.3); Red Blood Count 2.93 M/uL (4.2-5.4); White Blood Count 9.44 K/uL (4.8-10.8)
[2019-08-18] MEDS: HEPARIN SOD 5,000 UNIT/0.5 ML VIAL SQ SCH ×3 (06:17→21:03)
[2019-08-18 06:42] LABS: BUN Creatinine Ratio 16.9 (10-20); Calcium 8.2 mg/dl (8.5-10.1); Creatinine Clr Calc Pharmacy 25.3 ml/min; Est GFR (African American) 23.8; Est GFR (Non-African American) 20.5; Potassium 4.5 mmol/L (3.5-5.1)
[2019-08-18] MEDS: ISOSORBIDE MONO EXTENDED REL 60 MG TABCR PO SCH (08:45)
[2019-08-18] MEDS: carvediloL 25 MG TAB PO SCH ×2 (08:45→21:02)
[2019-08-18] MEDS: CYANOCOBALAMIN 500 MCG TABLET (VITAMIN B-12) PO SCH (08:45)
[2019-08-18] MEDS: dilTIAZem HCL 180 MG CAPCR PO SCH (08:46)
[2019-08-18] MEDS: ASPIRIN 81 MG ECTAB PO SCH (08:46)
[2019-08-18] MEDS: POTASSIUM CHLORIDE 20 MEQ TABCR PO SCH (08:46)
[2019-08-18] MEDS: MAGNESIUM OXIDE 400 MG TAB PO SCH (08:46)
[2019-08-18] MEDS: SITAGLIPTIN PHOSPHATE 100 MG TAB PO SCH (08:46)
[2019-08-18] MEDS: FAMOTIDINE 40 MG TABLET PO SCH (08:46)
[2019-08-18] MEDS: FLUTICASONE/SALMETEROL (ADVAIR) 500/50 INH 14 PUFF INH SCH ×2 (08:47→21:04)
[2019-08-18] MEDS: DICLOFENAC SOD 1% GEL 100 GM TUBE EXT SCH ×4 (08:47→21:03)
[2019-08-18] MEDS: INSULIN ASPART 100 UNITS/ML 3 ML PEN SC SCH ×4 (08:48→20:59)
[2019-08-18] MEDS: MULTIVITAMIN TAB PO SCH (09:35)
[2019-08-18] MEDS: PRAVASTATIN SOD 40 MG TAB PO SCH (09:35)
[2019-08-18] MEDS: ESCITALOPRAM OXALATE 10 MG TAB PO SCH (09:35)
[2019-08-18] MEDS: PANTOprazole 40 MG TAB PO SCH (09:35)
[2019-08-18] MEDS: CLOPIDOGREL BISULFATE 75 MG TAB PO SCH (10:16)
[2019-08-18] MEDS: DOXYCYCLINE HYCLATE 100 MG in DEXTROSE 5% 100 ML IV SCH ×2 (10:17→21:08)
[2019-08-18] MEDS ORDERED: SODIUM CHLORIDE 0.9% 1000ML 1,000 ML IV SCH (11:30)
--- NOTE | 2019-08-18 11:31 | Hospitalist Progress Note ---
Date of Service August 18, 2019 Assessment & Plan (1) Chest pain: Continue admit tele Of the troponin was elevated but continue to be flat as in the previous patient's visits. Patient had recent stress test which was negative for ischemia and symptoms prior not relieved by prior coronary intervention. Patient clinically improved and troponins are trending down without acute ischemia. Appreciate cardiology consult Nitroglycerin as needed Replenish electrolytes Continue carvedilol to 37.5 twice a day and reduce isosorbide to 120 g once per day. Continue all other patient medication including oral diltiazem. Patient is a full code DVT prophylaxis SCDs and teds. Follow-up blood cultures and sputum cultures. (2) Elevated troponin: Continue trending down (3) T2DM (type 2 diabetes mellitus): ADA diet Continue Januvia Sliding scale insulin coverage (4) PAF (paroxysmal atrial fibrillation): In A.fib at this time. rate in the 110's. Continue Cardizem CD 180mg daily. Previous anticoagulation with warfarin resulted in a GI bleed with shock. She is known to have extensive diverticulosis. No anticoagulation has been used since that time. DVT prophylaxis with heparin sub-q and SCDs. (5) CKD (chronic kidney disease) stage 3, GFR 30-59 ml/min: Creat 1.39, avoid nephrotoxic agents. Continue monitoring creatinine (6) Chronic respiratory failure with hypoxia, on home O2 therapy: Continue Albuterol nebs prn Continue oxygen and Symbicort Supplemental oxygen as needed to keep oxygenation above 92%. (7) CAD (coronary artery disease): 07/20 - nuclear stress test neg for ischemia Continue aspirin, plavix, and coreg. (8) HLD (hyperlipidemia): continue pravastatin (9) Pulmonary edema: Pulmonary edema seen on the chest x-rays but not overt. Patient quit Olivia Lopez De Gutierrez pneumonitis versus pneumonia which were not clearly visible due to pulmonary edema. Procalcitonin high. Patient appears appears to be very tired. Pneumonia cannot be excluded. Continue doxycycline and added levofloxacin 750 mg p.o. every 48 hours(due to worsening kidney function) DuoNebs every 4 hours as needed for shortness of breath. Continue monitoring Present on Admission?: Yes Subjective Patient was seen at the bedside. She was very tired in the morning but in the afternoon felt better. She was complaining of chest pain and chest pressure. P.o. intake is good. Patient denies fever, chills, shortness of breath, abdominal pain, frequency, urgency. Patient remains in A. fib with variable rate control. Review of Systems Review of Systems: All systems reviewed & are unremarkable except as noted in HPI & below Physical Exam Constitutional: WD/WN, vitals as above + obese; no acute distress Eyes: PERRL, conjunctivae normal, anicteric sclerae ENMT: external ear and nose normal, oropharynx normal Neck: trachea midline, no thyromegaly Respiratory: normal respiratory effort, lungs clear to auscultation Cardiovascular: Rate/Rhythm: + irregularly irregular Heart Sounds: normal S1 and normal S2; no gallop and no murmur Palpation: normal PMI Vessels: normal carotid upstroke and radial pulses present; no JVD and no carotid bruit Extremities: no edema Gastrointestinal (Abdomen): normal bowel sounds, soft, nontender, no hepatosplenomegaly Musculoskeletal: no cyanosis or clubbing, extremities motor strength 5/5 Skin: no rashes, warm and dry Neurologic: PERRL, EOMI, accommodation nl, no face palsy, no dysarthria Psychiatric: A+Ox3, euthymic affect Results & Data Vital Signs (Past 12 Hours) Vital Signs Temp Pulse Pulse Pulse Resp BP BP 08/18/19 10:57 37.3 C 22 159/96 H 08/18/19 10:50 159/97 H 08/18/19 10:15 165/104 H 08/18/19 07:42 37.2 C 97 H 20 150/91 H 08/18/19 07:31 76 08/18/19 04:00 37.6 C H 87 24 106/64 08/18/19 03:18 94 H 16 Pulse Ox 08/18/19 10:57 99 08/18/19 10:50 08/18/19 10:15 08/18/19 07:42 96 08/18/19 07:31 08/18/19 04:00 92 08/18/19 03:18 96 PG Care Time/CCT Total # of Minutes Spent Total Time Spent with Patient: Total time spent is greater than 50% in coordination of care (as documented) at patient's floor/unit and/or counseling patient: (1) T2DM (type 2 diabetes mellitus) Diabetes mellitus group home insulin use: without meterman use (2) CAD (coronary artery disease) Associated angina: angina presence unspecified Coronary Disease-Associated Artery/Lesion type: [place] artery [place] vs. transplanted heart: [place] heart Qualified Code(s): I25.10 - Atherosclerotic heart disease of [place] coronary artery without angina pectoris (3) HLD (hyperlipidemia) Hyperlipidemia type: pure hypercholesterolemia Qualified Code(s): E78.00 - Pure hypercholesterolemia, unspecified; E78.0 - Pure hypercholesterolemia (4) Chest pain Chest pain type: unspecified Qualified Code(s): R07.9 - Chest pain, unspecified
--- NOTE | 2019-08-18 12:11 | XRay Report ---
XR chest 1V portable HISTORY: 79 years-old Female possible sepsis acute sepsis COMPARISON: Chest radiograph 08/16/2019 TECHNIQUE: Portable AP view of the chest FINDINGS: Cardiac silhouette is enlarged, unchanged. Prior median sternotomy with cardiac valvular prosthesis. Mild left basilar opacities suggest atelectasis, unchanged. No pneumothorax, large pleural effusion o r overt pulmonary edema. Degenerative changes of the shoulders and spine. IMPRESSION: 1. Cardiomegaly without overt pulmonary edema. 2. Unchanged left basilar opacities suggestive of probable atelectasis. ACT 112: Negative or not required by law. The above report was generated using voice recognition software. It may contain grammatical, syntax o r spelling errors. Electronically signed by: Tonny Bethea M.D. 08/18/2019 12:10 PM
[2019-08-18] MEDS ORDERED: Nursing to Pharmacy Communication ONE (14:27)
--- NOTE | 2019-08-18 14:38 | Cardiology Progress Note ---
Date of Service August 18, 2019 Assessment & Plan (1) PAF (paroxysmal atrial fibrillation): Patient with past paroxysmal H arrhythmias now currently in atrial fibrillation with mildly elevated ventricular response rate of undetermined duration. Previously determined to be poor high anticoagulation risk heart rates now slowed with medical therapy suspect elevated heart rates are contributing to current complaints. Recent stress testing was negative for ischemia but patient with known coronary disease including past coronary event approximately 7 months. Prior stress testing 1 month ago Notable history is however prior to presentation for fall appear to be mechanical in nature with mild injury question of this is contributing to concerns or issues or whether atrial fibrillation contributed to patient's instability. Plan patient clinically improved troponins flat to trending downward EKG without acute ischemia Heart rate and blood pressure better controlled on current dosing. Malaise state of uncertain etiology with notable decline in renal function. No sign of heart failure by physical examination or chest x-ray (2) Chest pain: Symptoms do not appear to secondary to acute ischemia patient with chronic chest pain. Troponins mildly elevated but flat and consistent with past history. Recent stress testing negative for ischemia and symptoms prior not relieved by prior coronary interventions (3) Elevated troponin: (4) CAD (coronary artery disease): (5) Chronic respiratory failure with hypoxia, on home O2 therapy: (6) Renal failure (ARF), acute on chronic: Uncertain precipitating cause diuretics have been held, blood cultures drawn Hypertension better controlled currently patient symptoms appear to be improved without certain intervention we will continue to follow Subjective Patient did not feel as well this morning but better this afternoon per patient mild nausea at lunchtime. Chest pressure intermittently as per past No overt fevers or chills no focal symptoms dizziness or lightheadedness [place] in atrial fibrillation with better controlled ventricular response rate Laboratory studies notable for significant change in renal function Physical Exam Constitutional: WD/WN, vitals as above + obese; no acute distress Eyes: PERRL, conjunctivae normal, anicteric sclerae ENMT: external ear and nose normal, oropharynx normal Neck: trachea midline, no thyromegaly Respiratory: normal respiratory effort, lungs clear to auscultation Cardiovascular: Rate/Rhythm: + irregularly irregular Heart Sounds: normal S1 and normal S2; no gallop and no murmur Palpation: normal PMI Vessels: normal carotid upstroke and radial pulses present; no JVD and no carotid bruit Extremities: no edema Gastrointestinal (Abdomen): normal bowel sounds, soft, nontender, no hepatosplenomegaly Musculoskeletal: no cyanosis or clubbing, extremities motor strength 5/5 Skin: no rashes, warm and dry Neurologic: PERRL, EOMI, accommodation nl, no face palsy, no dysarthria Psychiatric: A+Ox3, euthymic affect Results & Data Vital Signs (Past 12 Hours) Vital Signs Temp Pulse Pulse Pulse Resp BP BP 08/18/19 10:57 37.3 C 22 159/96 H 08/18/19 10:50 159/97 H 08/18/19 10:15 165/104 H 08/18/19 07:42 37.2 C 97 H 20 150/91 H 08/18/19 07:31 76 08/18/19 04:00 37.6 C H 87 24 106/64 08/18/19 03:18 94 H 16 Pulse Ox 08/18/19 10:57 99 08/18/19 10:50 08/18/19 10:15 08/18/19 07:42 96 08/18/19 07:31 08/18/19 04:00 92 08/18/19 03:18 96 Laboratory Results Laboratory Results - last 24 hr 08/17/19 08/18/19 08/18/19 20:16 05:50 05:50 WBC 9.44 RBC 2.93 L Hgb 9.6 L Hct 29.3 L MCV 100.0 MCH 32.8 MCHC 32.8 RDW Std Deviation 53.2 H RDW Coeff of Albert 14.7 H Plt Count 158 MPV 10.7 H Absolute Nucleated RBC 0.03 H Nucleated RBC % (auto) 0.3 Sodium 135 L Potassium 4.5 D Chloride 103 Carbon Dioxide 25 Anion Gap 7.0 BUN 37 H D Creatinine 2.20 H D Est Cr Clr Drug Dosing 25.3 Est GFR ( Amer) 23.8 Est GFR (Non-Af Amer) 20.5 BUN/Creatinine Ratio 16.9 Glucose 178 H POC Glucose 133 H Lactate Calcium 8.2 L Troponin I NT-Pro-B Natriuret Pep Procalcitonin 08/18/19 08/18/19 08/18/19 07:57 10:07 10:47 WBC RBC Hgb Hct MCV MCH MCHC RDW Std Deviation RDW Coeff of Albert Plt Count MPV Absolute Nucleated RBC Nucleated RBC % (auto) Sodium Potassium Chloride Carbon Dioxide Anion Gap BUN Creatinine Est Cr Clr Drug Dosing Est GFR ( Amer) Est GFR (Non-Af Amer) BUN/Creatinine Ratio Glucose POC Glucose 163 H 172 H Lactate Calcium Troponin I 0.067 H* NT-Pro-B Natriuret Pep Procalcitonin 08/18/19 08/18/19 08/18/19 11:29 11:36 11:36 WBC RBC Hgb Hct MCV MCH MCHC RDW Std Deviation RDW Coeff of [place] Plt Count MPV Absolute Nucleated RBC Nucleated RBC % (auto) Sodium Potassium Chloride Carbon Dioxide Anion Gap BUN Creatinine Est Cr Clr Drug Dosing Est GFR ( Amer) Est GFR (Non-Af Amer) BUN/Creatinine Ratio Glucose POC Glucose 192 H Lactate 1.9 Calcium Troponin I NT-Pro-B Natriuret Pep 87173 H Procalcitonin 08/18/19 11:36 WBC RBC Hgb Hct MCV MCH MCHC RDW Std Deviation RDW Coeff of Albert Plt Count MPV Absolute Nucleated RBC Nucleated RBC % (auto) Sodium Potassium Chloride Carbon Dioxide Anion Gap BUN Creatinine Est Cr Clr Drug Dosing Est GFR ( Amer) Est GFR (Non-Af Amer) BUN/Creatinine Ratio Glucose POC Glucose Lactate Calcium Troponin I NT-Pro-B Natriuret Pep Procalcitonin 11.71 H Diagnostic Findings 18-AUG-2019 10:18:18 [facility] RETRIEVAL Atrial fibrillation Abnormal ECG When compared with ECG of 16-AUG-2019 11:47, No significant change was found (1) Chest pain Chest pain type: unspecified Qualified Code(s): R07.9 - Chest pain, unspecified (2) CAD (coronary artery disease) Coronary Disease-Associated Artery/Lesion type: [place] artery [place] vs. transplanted heart: [place] heart Associated angina: angina presence unspecified Qualified Code(s): I25.10 - Atherosclerotic heart disease of [place] coronary artery without angina pectoris
[2019-08-18] MEDS: LEVOFLOXACIN/D5W 750 MG/150 ML BAG IV SCH (15:41)
[2019-08-18] MEDS ORDERED: ALBUT/IPRATROP 3MG/0.5MG NEB 3 ML VIAL NEB PRN (19:18)
[2019-08-18] MEDS: FERROUS SULFATE 325 MG TAB PO SCH (21:01)
[2019-08-18] MEDS: MICONAZOLE NITRATE POWDER 43 GM EXT PRN (21:03)
[2019-08-19] MEDS: ACETAMINOPHEN 325 MG TAB PO PRN (03:58)
[2019-08-19] MEDS: ONDANSETRON INJ 2 MG/ML 2 ML VIAL IV PRN (04:08)
[2019-08-19] MEDS: HEPARIN SOD 5,000 UNIT/0.5 ML VIAL SQ SCH ×3 (05:23→21:08)
[2019-08-19] MEDS ORDERED: VANCOMYCIN CONSULT ACTIVE PRN (05:41)
[2019-08-19] MEDS ORDERED: VANCOMYCIN HCL 2,250 MG in SODIUM CHLORIDE 0.9% 500 ML IV ONE (06:15)
[2019-08-19 06:40] LABS: Basophils # (auto) 0.01 K/uL (0-0.2); Basophils % (auto) 0.1 %; Hematocrit (blood only) 27.2 % (37-47); Immature Granulocytes # (auto) 0.06 K/uL (0.00-0.02); Immature Granulocytes % (auto) 0.8 %; Lymphocytes # (auto) 0.31 K/uL (1.2-3.4); Mean Corpuscular Hemoglobin 32.4 pg (25-34); Mean Corpuscular Hgb Conc 33.1 g/dL (32-36); Mean Corpuscular Volume 97.8 fL (80-100); Monocytes # (auto) 0.29 K/uL (0.11-0.59); Monocytes % (auto) 3.7 %; Neutrophils # (auto) 7.16 K/uL (1.4-6.5); Neutrophils % (auto) 91.4 %; Nucleated RBC # (auto) 0.03 K/uL (0-0); Nucleated RBC % (auto) 0.4 %; Platelet Count 112 K/uL (130-400); RDW Standard Deviation 53.7 fL (36.4-46.3); Red Blood Count 2.78 M/uL (4.2-5.4); White Blood Count 7.83 K/uL (4.8-10.8)
[2019-08-19 07:19] LABS: Albumin Level 1.9 gm/dl (3.4-5.0); BUN Creatinine Ratio 20.8 (10-20); Calcium 8.2 mg/dl (8.5-10.1); Creatinine Clr Calc Pharmacy 25.6 ml/min; Est GFR (Non-African American) 20.7; Potassium 4.6 mmol/L (3.5-5.1)
[2019-08-19 07:23] LABS: Albumin Globulin Ratio 0.5 (0.9-2); Bilirubin,Total 0.5 mg/dl (0.2-1); Total Protein 5.9 gm/dl (6.4-8.2)
[2019-08-19] MEDS: INSULIN ASPART 100 UNITS/ML 3 ML PEN SC SCH ×4 (08:00→21:08)
[2019-08-19] MEDS: MULTIVITAMIN TAB PO SCH (08:05)
[2019-08-19] MEDS: ISOSORBIDE MONO EXTENDED REL 60 MG TABCR PO SCH (08:05)
[2019-08-19] MEDS: ESCITALOPRAM OXALATE 10 MG TAB PO SCH (08:05)
[2019-08-19] MEDS: PRAVASTATIN SOD 40 MG TAB PO SCH (08:05)
[2019-08-19] MEDS: POTASSIUM CHLORIDE 20 MEQ TABCR PO SCH (08:05)
[2019-08-19] MEDS: CLOPIDOGREL BISULFATE 75 MG TAB PO SCH (08:05)
[2019-08-19] MEDS: ASPIRIN 81 MG ECTAB PO SCH (08:05)
[2019-08-19] MEDS: SITAGLIPTIN PHOSPHATE 100 MG TAB PO SCH (08:05)
[2019-08-19] MEDS: FAMOTIDINE 40 MG TABLET PO SCH (08:05)
[2019-08-19] MEDS: MAGNESIUM OXIDE 400 MG TAB PO SCH (08:05)
[2019-08-19] MEDS: dilTIAZem HCL 180 MG CAPCR PO SCH (08:05)
[2019-08-19] MEDS: carvediloL 25 MG TAB PO SCH ×2 (08:06→20:23)
[2019-08-19] MEDS: CYANOCOBALAMIN 500 MCG TABLET (VITAMIN B-12) PO SCH (08:06)
[2019-08-19] MEDS: FLUTICASONE/SALMETEROL (ADVAIR) 500/50 INH 14 PUFF INH SCH ×2 (08:06→20:23)
[2019-08-19] MEDS: DICLOFENAC SOD 1% GEL 100 GM TUBE EXT SCH ×4 (08:10→20:25)
[2019-08-19] MEDS: PANTOprazole 40 MG TAB PO SCH (08:10)
[2019-08-19] MEDS: DOXYCYCLINE HYCLATE 100 MG in DEXTROSE 5% 100 ML IV SCH (10:38)
--- NOTE | 2019-08-19 10:57 | Cardiology Progress Note ---
Date of Service August 19, 2019 Assessment & Plan (1) Gram-positive bacteremia: Blood cultures drawn yesterday returned overnight positive for gram- positive cocci in 2 bottles Suspect significant contribution to patient's current presenting ill-defined complaint, abnormal testing including elevated BNP and troponin in the absence of heart failure or ischemia Antibiotic coverage expanded Will order echo to review given presence of prosthetic aortic valve replacement Addendum echocardiogram demonstrates similar findings to studies in the past. Bioprosthetic aortic valve is present in aortic valve position with normal systolic velocities and function no valvular insufficiency. No visualized vegetations on valve structures though limitations present Patient with high risk infection, recent hospitalization, indwelling prosthetic valve. Await culture results recommendations ID evaluation expect patient will require extended antibiotic course (2) PAF (paroxysmal atrial fibrillation): Patient with past paroxysmal H arrhythmias now currently in atrial fibrillation with mildly elevated ventricular response rate of undetermined duration. Previously determined to be poor high anticoagulation risk heart rates now slowed with medical therapy suspect elevated heart rates are contributing to current complaints. Recent stress testing was negative for ischemia but patient with known coronary disease including past coronary event approximately 7 months. Prior stress testing 1 month ago Notable history is however prior to presentation for fall appear to be mechanical in nature with mild injury question of this is contributing to co ncerns or issues or whether atrial fibrillation contributed to patient's instability. Rates are controlled today Patient continues to have contraindications to anticoagulation (3) Chest pain: Symptoms do not appear to secondary to acute ischemia patient with chronic chest pain. Troponins mildly elevated but flat and consistent with past history. Recent stress testing negative for ischemia and symptoms prior not relieved by prior coronary interventions (4) Elevated troponin: (5) CAD (coronary artery disease): (6) Chronic respiratory failure with hypoxia, on home O2 therapy: (7) Renal failure (ARF), acute on chronic: Uncertain precipitating cause diuretics have been held, blood cultures drawn Hypertension better controlled currently patient symptoms appear to be improved without certain intervention we will continue to follow (8) H/O aortic valve replacement with tissue graft: 2008 Subjective She feels somewhat improved this morning. Blood cultures returning for Gram positive cocci in 2 bottles and antibiotic therapies expanded No chest pains or discomfort no worsening shortness of breath She remains in atrial fibrillation with controlled ventricular response rate Physical Exam Constitutional: + obese; no acute distress Eyes: PERRL, conjunctivae normal, anicteric sclerae ENMT: external ear and nose normal, oropharynx normal Neck: trachea midline, no thyromegaly Respiratory: Auscultation: + diminished lung sounds and + crackles (Left base) Cardiovascular: Rate/Rhythm: + irregularly irregular Heart Sounds: normal S1, normal S2 and + murmur (Grade 1/6 to 2/6 systolic) Vessels: no JVD, no carotid bruit and no femoral bruit Extremities: + edema (Trace) Results & Data Vital Signs (Past 12 Hours) Vital Signs Temp Pulse Pulse Resp BP BP Pulse Ox 08/19/19 08:00 74 08/19/19 07:23 37.0 C 72 24 109/70 98 08/19/19 05:15 37.3 C 08/19/19 04:05 74 18 90 08/19/19 03:46 38.8 C H 08/19/19 03:18 37.8 C H 89 21 114/76 90 08/19/19 00:00 82 08/18/19 23:26 37.0 C 91 H 19 129/81 96 Laboratory Results Laboratory Results - last 24 hr 08/18/19 08/18/19 08/18/19 10:47 11:29 11:36 WBC RBC Hgb Hct MCV MCH MCHC RDW Std Deviation RDW Coeff of Albert Plt Count MPV Immature Gran % (Auto) Neut % (Auto) Lymph % (Auto) [place] % (Auto) Eos % (Auto) Baso % (Auto) Immature Gran # (Auto) Neut # (Auto) Lymph # (Auto) [place] # (Auto) Eos # (Auto) Baso # (Auto) Absolute Nucleated RBC Nucleated RBC % (auto) Sodium Potassium Chloride Carbon Dioxide Anion Gap BUN Creatinine Est Cr Clr Drug Dosing Est GFR ( Amer) Est GFR (Non-Af Amer) BUN/Creatinine Ratio Glucose POC Glucose 192 H Lactate 1.9 Calcium Total Bilirubin AST ALT Alkaline Phosphatase Troponin I 0.067 H* NT-Pro-B Natriuret Pep Total Protein Albumin Globulin Albumin/Globulin Ratio Procalcitonin Bld Cult Staph aureus PCR Blood Culture MRSA PCR 08/18/19 08/18/19 08/18/19 11:36 11:36 11:36 WBC RBC Hgb Hct MCV MCH MCHC RDW Std Deviation RDW Coeff of Albert Plt Count MPV Immature Gran % (Auto) Neut % (Auto) Lymph % (Auto) [place] % (Auto) Eos % (Auto) Baso % (Auto) Immature Gran # (Auto) Neut # (Auto) Lymph # (Auto) [place] # (Auto) Eos # (Auto) Baso # (Auto) Absolute Nucleated RBC Nucleated RBC % (auto) Sodium Potassium Chloride Carbon Dioxide Anion Gap BUN Creatinine Est Cr Clr Drug Dosing Est GFR ( Amer) Est GFR (Non-Af Amer) BUN/Creatinine Ratio Glucose POC Glucose Lactate Calcium Total Bilirubin AST ALT Alkaline Phosphatase Troponin I NT-Pro-B Natriuret Pep 19568 H Total Protein Albumin Globulin Albumin/Globulin Ratio Procalcitonin 11.71 H Bld Cult Staph aureus PCR Positive A Blood Culture MRSA PCR Positive A 08/18/19 08/18/19 08/18/19 16:17 18:03 20:03 WBC RBC Hgb Hct MCV MCH MCHC RDW Std Deviation RDW Coeff of Albert Plt Count MPV Immature Gran % (Auto) Neut % (Auto) Lymph % (Auto) [place] % (Auto) Eos % (Auto) Baso % (Auto) Immature Gran # (Auto) Neut # (Auto) Lymph # (Auto) [place] # (Auto) Eos # (Auto) Baso # (Auto) Absolute Nucleated RBC Nucleated RBC % (auto) Sodium Potassium Chloride Carbon Dioxide Anion Gap BUN Creatinine Est Cr Clr Drug Dosing Est GFR ( Amer) Est GFR (Non-Af Amer) BUN/Creatinine Ratio Glucose POC Glucose 154 H 137 H Lactate Calcium Total Bilirubin AST ALT Alkaline Phosphatase Troponin I 0.068 H* NT-Pro-B Natriuret Pep Total Protein Albumin Globulin Albumin/Globulin Ratio Procalcitonin Bld Cult Staph aureus PCR Blood Culture MRSA PCR 08/19/19 08/19/19 08/19/19 00:17 06:27 06:27 WBC 7.83 RBC 2.78 L Hgb 9.0 L Hct 27.2 L MCV 97.8 MCH 32.4 MCHC 33.1 RDW Std Deviation 53.7 H RDW Coeff of Albert 15.0 H Plt Count 112 L MPV 11.0 H Immature Gran % (Auto) 0.8 Neut % (Auto) 91.4 Lymph % (Auto) 4.0 [place]ickson % (Auto) 3.7 Eos % (Auto) 0.0 Baso % (Auto) 0.1 Immature Gran # (Auto) 0.06 H Neut # (Auto) 7.16 H Lymph # (Auto) 0.31 L [place]ickson # (Auto) 0.29 Eos # (Auto) 0.00 Baso # (Auto) 0.01 Absolute Nucleated RBC 0.03 H Nucleated RBC % (auto) 0.4 Sodium 131 L Potassium 4.6 Chloride 103 Carbon Dioxide 24 Anion Gap 4.0 BUN 45 H Creatinine 2.18 H Est Cr Clr Drug Dosing 25.6 Est GFR ( Amer) 24.0 Est GFR (Non-Af Amer) 20.7 BUN/Creatinine Ratio 20.8 H Glucose 142 H POC Glucose Lactate Calcium 8.2 L Total Bilirubin 0.5 AST 23 ALT 21 Alkaline Phosphatase 70 Troponin I 0.050 H* NT-Pro-B Natriuret Pep 36339 H Total Protein 5.9 L Albumin 1.9 L Globulin 4.0 Albumin/Globulin Ratio 0.5 L Procalcitonin Bld Cult Staph aureus PCR Blood Culture MRSA PCR 08/19/19 08/19/19 06:27 07:21 WBC RBC Hgb Hct MCV MCH MCHC RDW Std Deviation RDW Coeff of Albert Plt Count MPV Immature Gran % (Auto) Neut % (Auto) Lymph % (Auto) [place] % (Auto) Eos % (Auto) Baso % (Auto) Immature Gran # (Auto) Neut # (Auto) Lymph # (Auto) [place] # (Auto) Eos # (Auto) Baso # (Auto) Absolute Nucleated RBC Nucleated RBC % (auto) Sodium Potassium Chloride Carbon Dioxide Anion Gap BUN Creatinine Est Cr Clr Drug Dosing Est GFR ( Amer) Est GFR (Non-Af Amer) BUN/Creatinine Ratio Glucose POC Glucose 153 H Lactate Calcium Total Bilirubin AST ALT Alkaline Phosphatase Troponin I 0.048 H* NT-Pro-B Natriuret Pep Total Protein Albumin Globulin Albumin/Globulin Ratio Procalcitonin Bld Cult Staph aureus PCR Blood Culture MRSA PCR (1) CAD (coronary artery disease) Associated angina: angina presence unspecified Coronary Disease-Associated Artery/Lesion type: [place] artery [place] vs. transplanted heart: [place] heart Qualified Code(s): I25.10 - Atherosclerotic heart disease of [place] coronary artery without angina pectoris (2) Chest pain Chest pain type: unspecified Qualified Code(s): R07.9 - Chest pain, unspecified
--- NOTE | 2019-08-19 14:02 | Hospitalist Progress Note ---
Date of Service August 19, 2019 Assessment & Plan (1) Staphylococcus aureus bacteremia: Blood cultures drawn on 08/18. Presently 4/4 bottles positive. MRSA PCR positive. Unclear source (possibly pneumonia?). - On vancomyin - Repeat blood cultures - Chest CT for septic emboli - TTE (2) Pulmonary edema: CXR on 08/18 showed cardiomegaly without overt pulmonary edema. Does show left basilar opacities with procalcitonin high; however, this may be due to her bacteremia. - Continue levofloxacin - Chest CT -> Concern for septic emboli possibly. - DuoNebs every 4 hours as needed for shortness of breath. (3) Chest pain: Appears to be at least partially non-cardiac as she does have tenderness to palpation and her prior admission was for similar issue. Patient had recent stress test which was negative for ischemia and symptoms prior not relieved by prior coronary intervention. - Continue carvedilol & reduced isosorbide 120mg. - Continue all other patient medication including oral diltiazem. (4) CKD (chronic kidney disease) stage 3, GFR 30-59 ml/min: Baseline Cr ~1.4. - Now with YENNI on CKD, Cr up to 2.2 on 08/18. - Holding diuretic at this time. - Avoid nephrotoxic agents. - Continue monitoring creatinine (5) T2DM (type 2 diabetes mellitus): A1c was a 6.9% in 07/2019. - ADA diet - Continue Januvia - Sliding scale insulin coverage (6) PAF (paroxysmal atrial fibrillation): In A.fib at this time. Previous anticoagulation with warfarin resulted in a GI bleed with shock. She is known to have extensive diverticulosis. No anticoagulation has been used since that time. - Rates in the 110's initially; now in the 60s. - Continue Cardizem CD 180mg daily. (7) Chronic respiratory failure with hypoxia, on home O2 therapy: Reporting continued shortness of breath, though on her home O2. - Continue Albuterol nebs prn - Continue oxygen and Symbicort - Supplemental oxygen as needed to keep oxygenation above 92%. (8) CAD (coronary artery disease): In 07/2019, her nuclear stress test neg for ischemia. - Continue aspirin, plavix, coreg, and statin. - As above for chest pain (9) DVT prophylaxis: Subjective Still having some chest pain today. It is reproducible on palpation. Overall, she is doing well, but not breathing much better than yesterday she says. Reports no fevers/chills, chest pain, shortness of breath, abdominal pain, [place], or vomiting. Physical Exam Constitutional: WD/WN, vitals as above Eyes: EOM intact bilaterally; no conjunctival abnormality ENMT: external ear and nose normal, oropharynx normal Neck: trachea midline, no thyromegaly normal visual inspection Respiratory: normal respiratory effort, lungs clear to auscultation no respiratory distress Cardiovascular: RRR, no murmur, no edema Gastrointestinal (Abdomen): Inspection/Auscultation: abdomen normal to inspection; abdomen not distended Musculoskeletal: no cyanosis or clubbing, extremities motor strength 5/5 Skin: no rashes, warm and dry Neurologic: moves all extremities and awake Psychiatric: Orientation: alert, oriented to person and cooperative Results & Data Vital Signs (Past 12 Hours) Vital Signs Temp Pulse Pulse Pulse Resp BP BP 08/19/19 11:30 36.5 C 64 22 99/58 L 08/19/19 08:00 74 08/19/19 07:23 37.0 C 72 24 109/70 08/19/19 05:15 37.3 C 08/19/19 04:05 74 18 08/19/19 03:46 38.8 C H 08/19/19 03:18 37.8 C H 89 21 114/76 Pulse Ox 08/19/19 11:30 97 08/19/19 08:00 08/19/19 07:23 98 08/19/19 05:15 08/19/19 04:05 90 08/19/19 03:46 08/19/19 03:18 90 PG Care Time/CCT Total # of Minutes Spent Total Time Spent with Patient: Total time spent is greater than 50% in coordination of care (as documented) at patient's floor/unit and/or counseling patient: (1) T2DM (type 2 diabetes mellitus) 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 transplanted heart: [place] heart Qualified Code(s): I25.10 - Atherosclerotic heart disease of [place] coronary artery without angina pectoris (3) Chest pain Chest pain type: unspecified Qualified Code(s): R07.9 - Chest pain, unspecified
--- NOTE | 2019-08-19 14:04 | Nephrology Consultation ---
Date of Consultation August 19, 2019 Assessment & Plan (1) Gram-positive bacteremia: Id consult pending. Two of the 2 blood cultures positive for MRSE. No evidence of vegetation transthoracic echocardiogram. (2) PAF (paroxysmal atrial fibrillation): Cardiology following. Regular rhythm with bradycardia noted on exam today. Cardiology following. (3) Chest pain: Voltaren gel provided during recent admission. Improved since admission. (4) CAD (coronary artery disease): No ACS. (5) Renal failure (ARF), acute on chronic: I suspect the etiology is likely related to prerenal azotemia and ATN related to rapid atrial fibrillation and infection. Thankfully, creatinine is stable. Electrolytes are acceptable. Patient's volume status is blood pressure acceptable. She has evidence of predominately right sided heart failure and much of this may be chronic related to her underlying pulmonary hypertension. There is certainly no emergent indication for dialysis. I agree with using diuretics as needed to maintain an even fluid balance. At this time torsemide has been held. Input and output has been accurately documented. Medications are appropriately dosed for kidney function. Januvia has been held. To complete her evaluation have requested urine studies today as well as renal ultrasound. (6) H/O aortic valve replacement with tissue graft: History of Present Illness Reason for Consultation: YENNI/CKD Requesting Physician: Darrick Sethi MD Attending Physician: Darrick Sethi MD History of Present Illness Marta Dia is an 79-year-old female with coronary artery disease, paroxysmal atrial fibrillation, chronic obstructive pulmonary disease, obstructive sleep apnea, pulmonary hypertension, osteoarthritis, Salazar's esophagus, history aortic valve replacement with bioprosthesis, and chronic kidney disease. The patient's baseline creatinine has been approximately 1.3 mg/dL. She has never been previously evaluated by a speech and hearing clinic director. She presented to [facility] on August 16 with chest pain. It is noted that the patient was recently admitted from July 19 with chest pain. At that time her symptoms were attributed to a COPD exacerbation as well as costochondritis. Her chest pain was treated predominantly with Voltaren gel. During hospitalization she underwent a Lexiscan stress test which did not demonstrate any evidence of ischemia 47% maximum predicted heart rate. This hospitalization the patient presented with atrial fibrillation with rapid ventricular response. Cardiology has been following. Troponin was slightly elevated but on rising. There is no evidence of acute cardiac ischemia. Carvedilol has been increased throughout the hospitalization and isosorbide is being weaned. Patient has been maintained on antibiotic therapy for possible pneumonia with doxycycline levofloxacin. Blood cultures have now returned demonstrating MR Mendez a 2/2 bottles. Serum creatinine carol from baseline of 1.25 mg/dL on August 17 to 2.2 mg/dL on August 18 %period% creatinine was stable at 2.2 mg/dL today. Patient's diuretics have been held. She has been maintained in a relatively even fluid balance. Overall, at that time assessment this morning she states that she is feeling improved. She denies any fevers or chills. She denies any chest pain at time of my assessment. She denied any dyspnea. She denies lightheadedness, dizziness, syncope or presyncope. Transthoracic echocardiogram was updated today and this was reviewed. There is no evidence of any vegetation. Allergies Allergy/AdvReac Type Severity Reaction Status Date / Time aspirin Allergy Unknown Unknown Verified 08/16/19 12:51 cefuroxime [From Ceftin] Allergy Unknown Unknown Verified 08/16/19 12:51 Cephalosporins Allergy Unknown Unknown Verified 08/16/19 12:51 doxycycline Allergy Unknown UNKNOWN Verified 08/16/19 12:51 hydrocodone Allergy Unknown Unknown Verified 08/16/19 12:51 neomycin Allergy Unknown Unknown Verified 08/16/19 12:51 propoxyphene Allergy Unknown Unknown Verified 08/16/19 12:51 Sulfa (Sulfonamide Allergy Unknown Unknown Verified 08/16/19 12:51 Antibiotics) metformin AdvReac Mild nausea Verified 08/16/19 12:51 vicodin tabs Allergy Unknown Uncoded 08/16/19 12:51 Home Medications Home Medications Medication Instructions Recorded Confirmed Type nitroglycerin [Nitrostat] 0.4 mg SUBLINGUAL DIRECTED PRN 01/06/19 08/16/19 History clopidogrel 75 mg tablet 75 mg PO DAILY #30 tab 03/19/19 08/16/19 Rx aspirin 81 mg tablet,delayed 81 mg PO DAILY #90 tab 04/22/19 08/16/19 Rx release coenzyme Q10 100 mg tablet 100 mg PO QPM #30 tab 04/22/19 08/16/19 Rx famotidine 40 mg tablet 40 mg PO QAM #90 tab 04/22/19 08/16/19 Rx ferrous sulfate 325 mg (65 mg 325 mg PO HS #90 tab 04/22/19 08/16/19 Rx iron) tablet magnesium oxide 400 mg (as 400 mg PO QAM #30 tab 04/22/19 08/16/19 Rx magnesium oxide) tablet mometasone-formoterol HFA 200 2 puff INHALATION BID #13 gm 04/22/19 08/16/19 Rx mcg-5 mcg/actuation aerosol inhaler multivitamin 1 tab PO QAM #60 tab 04/22/19 08/16/19 Rx pantoprazole 40 mg tablet,delayed 40 mg PO DAILY #90 tab 04/22/19 08/16/19 Rx release pravastatin 80 mg tablet 80 mg PO QAM #90 tab 04/22/19 08/16/19 Rx carvedilol [Coreg] 25 mg PO BID 07/19/19 08/16/19 History diltiazem HCl [Cardizem CD] 180 mg PO DAILY 07/19/19 08/16/19 History escitalopram oxalate 5 mg PO DAILY 07/19/19 08/16/19 History isosorbide mononitrate 120 mg PO BID 07/19/19 08/16/19 History torsemide 20 mg PO DAILY 07/19/19 08/16/19 History diclofenac sodium [Voltaren] 4 g EXT QID #1 tube 07/25/19 08/16/19 Rx albuterol sulfate 2.5 mg/3 mL 2.5 mg INHALATION Q4 PRN #75 ml 07/26/19 08/16/19 Rx (0.083 %) solution for nebulization albuterol sulfate 90 mcg/actuation 2 puff INHALATION Q4H PRN #18 gm 07/26/19 08/16/19 Rx aerosol inhaler cyanocobalamin (vitamin B-12) 500 500 mcg PO DAILY #30 tab 07/26/19 08/16/19 Rx mcg tablet potassium chloride 20 mEq 20 meq PO DAILY #90 tab 07/26/19 08/16/19 Rx tablet,extended release Januvia 100 mg PO DAILY 08/16/19 08/16/19 History Patient History Medical History Anemia Anxiety Arteriosclerotic cardiovascular disease Salazar's esophagus (Acute) CAD (coronary artery disease) CHF (congestive heart failure) (08/04/13) Chronic back pain CKD (chronic kidney disease) stage 3, GFR 30-59 ml/min Degeneration of cervical intervertebral disc Degenerative arthritis of knee (Acute) Diabetes mellitus Disc degeneration, lumbar (Acute) Generalized weakness GERD (gastroesophageal reflux disease) GI bleed HLD (hyperlipidemia) HTN (hypertension) On anticoagulant therapy plavix daily On home oxygen therapy 3L at all times LAINE on CPAP PAF (paroxysmal atrial fibrillation) Pulmonary hypertension, secondary Recurrent falls Renal insufficiency, mild T2DM (type 2 diabetes mellitus) Surgical History H/O aortic valve replacement @ [facility] History of cardiac cath 08/2013 Last cardiac cath demonstrated 2 vessel nonobstructive disease including mild LAD with 40% stenosis in proximal RCA with 40% stenosis and widely patent mid RCA stent. Medical management recommended at time. History of cardiac cath 01/07/2019 coronary angiography, 2 drug eluting stent placed 01/11/19 1 drug eluting stent placed----on plavix History of colonoscopy with polypectomy History of esophagogastroduodenoscopy (EGD) Hiatal hernia and Salazar's History of partial colectomy Secondary to obstruction History of percutaneous coronary intervention 05/24/2011 cardiac cath demonstrated severe single-vessel CAD with 70% mild RCA stenosis treated with PCI using MONTSE History of tooth extraction all teeth removed History of total hysterectomy with bilateral salpingo-oophorectomy (BSO) Family History Sister Cancer Breast cancer Myocardial infarction Brother Myocardial infarction Other Adopted Unknown family medical history Social History Preferred Language: Malay Communication Ability: Effective Optical Coating Technician Required: No Beliefs That Will Affect Care: None marital status: / Current Living Situation: Alone Current Living Situation Comment: lives in a trailer current occupational status: retired Feels Safe at Home: Yes Smoking Status: Never smoker Second Hand Exposure: Yes ( smoked) ; Hx Alcohol Use: No Hx Substance Use: No caffeine: Yes Dental Care, Regularly: No Physical Activity Frequency: Does not Exercise Seatbelt Use: always Sunscreen Use: No Review of Systems Review of Systems: All systems reviewed & are unremarkable except as noted in HPI & below Physical Exam Constitutional: well developed, + morbidly obese and + physical limitations; not edematous Eyes: + anicteric sclerae; no corneal abnormality ENMT: Mouth: no oral mucosal abnormality and oral mucous membranes not dry Neck: normal visual inspection and trachea midline Respiratory: normal respiratory effort and + tachypneic Auscultation: lungs clear to auscultation bilaterally and + rales (few right base) Cardiovascular: Rate/Rhythm: + bradycardic Heart Sounds: normal S1, normal S2 and + murmur Vessels: + JVD Extremities: no edema Gastrointestinal (Abdomen): Percussion/Palpation: abdomen soft; abdomen nontender Musculoskeletal: Extremities: no cyanosis and no clubbing Skin: normal turgor; no lesions Neurologic: Motor/Sensory: no tremor and no asterixis Psychiatric: Orientation: alert and oriented x 3 Results & Data Vital Signs (Past 12 Hours) Vital Signs Temp Pulse Pulse Pulse Resp BP BP 08/19/19 11:30 36.5 C 64 22 99/58 L 08/19/19 08:00 74 08/19/19 07:23 37.0 C 72 24 109/70 08/19/19 05:15 37.3 C 08/19/19 04:05 74 18 08/19/19 03:46 38.8 C H 08/19/19 03:18 37.8 C H 89 21 114/76 Pulse Ox 08/19/19 11:30 97 08/19/19 08:00 08/19/19 07:23 98 08/19/19 05:15 08/19/19 04:05 90 08/19/19 03:46 08/19/19 03:18 90 PG Care Time/CCT Total # of Minutes Spent Total Time Spent with Patient: Total time spent is greater than 50% in coordination of care (as documented) at patient's floor/unit and/or counseling patient: (1) Chest pain Chest pain type: unspecified Qualified Code(s): R07.9 - Chest pain, unspecified (2) CAD (coronary artery disease) Coronary Disease-Associated Artery/Lesion type: [place] artery [place] vs. transplanted heart: [place] heart Associated angina: angina presence unspecified Qualified Code(s): I25.10 - Atherosclerotic heart disease of [place] coronary artery without angina pectoris
[2019-08-19 14:38] LABS: Appearance Urine Turbid (Clear); Bacteria Urine Automated Negative (Negative); Bilirubin Urine Negative (Negative); Blood Urine 1+ (Negative); Color Urine Dark Yellow; Epithelial Cell Urine Auto >30 /lpf (0-5); Glucose Urine UA Negative (Negative); Ketones Urine Negative (Negative); Leukocyte Esterase Urine Trace (Negative); Nitrite Urine Negative (Negative); Protein Urine 1+ (Negative); RBC Urine Automated 0-4 /hpf (0-4); Specific Gravity Urine 1.019 (1.000-1.030); Urobilinogen Urine Negative (Negative)
--- NOTE | 2019-08-19 14:53 | Pharmacy Report ---
Pharmacy Abx Initial Consult - Date of Service August 19, 2019 - Pharmacy Dosing Scope Date of Consult: 08/19 Consultation requested by: Dr. Petersen Pharmacy is consulted to initiate vancomcyin IV/PO dosing therapy, order appropriate labs and adjust drug dose/frequency. - Subjective The patient is a 79 year old F admitted on 08/16/19 14:21. - Objective Height: 5 ft 6 in Weight: 108.1 kg Vital Signs (Past 12hrs): Vital Signs Temp Pulse Pulse Pulse Resp BP BP 08/19/19 11:30 36.5 C 64 22 99/58 L 08/19/19 08:00 74 08/19/19 07:23 37.0 C 72 24 109/70 08/19/19 05:15 37.3 C 08/19/19 04:05 74 18 08/19/19 03:46 38.8 C H 08/19/19 03:18 37.8 C H 89 21 114/76 Pulse Ox 08/19/19 11:30 97 08/19/19 08:00 08/19/19 07:23 98 08/19/19 05:15 08/19/19 04:05 90 08/19/19 03:46 08/19/19 03:18 90 Lab Results (24hrs): Laboratory Tests (24 Hours) 08/19/19 08/19/19 06:27 06:27 WBC 7.83 Neut # (Auto) 7.16 H Creatinine 2.18 H Est Cr Clr Drug Dosing 25.6 - Assessment & Plan Assessment 79 year old F admitted with chest pain- YENNI. 4/4 blood cultures growing gram positive cocci in clusters- PCR positive for MRSA. Started on vancomycin this morning. Previously on doxycycline + Levofloxacin for possible pneumonia- discontinuing the doxycycline now that vancomycin to be started. continuing levofloxacin. Plan Vancomycin for treatment of MRSA bacteremia Vancomycin IV * Estimated PK Parameters: Vd 64 L/kg, Vik 0.0256 hr-1, t1/2 27 hr * Loading dose: 2250 mg (20 mg/kg) * Half-life estimating >24 hours will dose by levels * Goal trough level 15-20 mcg/mL * Random level ordered with AM labs Pharmacy will continue to follow and will adjust dose/frequency as necessary. Thank you.
[2019-08-19 15:26] LABS: Renal Epithelial Cells Urine 0-5 /lpf (0-5)
--- NOTE | 2019-08-19 15:28 | Ultrasound Report ---
ULTRASOUND KIDNEYS AND BLADDER CLINICAL HISTORY: Acute renal insufficiency. COMPARISON STUDY: Abdominal CT dated 12/02/2017. TECHNIQUE: Real-time, grayscale, and color flow sonography of the kidneys and bladder is performed. I mages are reviewed in the transverse and longitudinal planes. FINDINGS: Kidneys: The kidneys are atrophic. The right kidney measures 10.4 cm in length and the left kidney me asures 10.2 cm in length. There is no hydronephrosis. No shadowing renal calculi are identified. A 9 mm cyst is noted in the right lower pole. There is no sonographic evidence of solid renal mass lesion . No perinephric fluid is identified. Bladder: The bladder is decompressed around a Harrison catheter and cannot be assessed. IMPRESSION: 1. The kidneys are atrophic and without hydronephrosis. 2. The bladder was decompressed around a Harrison catheter and could not be assessed. ACT 112: Negative or not required by law. Electronically signed by: Ty Martinez M.D. 08/19/2019 3:27 PM
--- NOTE | 2019-08-19 15:43 | CT Scan Report ---
CT SCAN OF THE CHEST WITHOUT IV CONTRAST CLINICAL HISTORY: Bacteremia. COMPARISON STUDY: Chest CT dated 08/04/2017. Chest x-ray dated 08/18/2019. TECHNIQUE: CT scan of the thorax was performed from the thoracic inlet to the upper abdomen. Images are reviewed in the axial, sagittal, and coronal planes. IV contrast was not administered for this ex amination as per the referring clinician. A dose lowering technique was utilized adhering to the [facility]. CT DOSE: 954.94 mGy.cm FINDINGS: Thyroid: Imaged portions of the thyroid gland are normal in size and attenuation. There are bilateral thyroid nodules. The largest is in the left lobe and measures 2.1 cm. These are similar to previous. Thoracic aorta: There is atherosclerotic calcification of the thoracic aorta, which is normal in jeannine carlos and demonstrates standard 3-vessel arch anatomy. Heart: The patient is status post midline sternotomy with evidence of previous cardiac valve surgery. The heart is enlarged and without pericardial effusion. There is diminished attenuation of the cardi ac blood pool as compared to the myocardium suggesting anemia. The coronary arteries are densely calc ified. The pulmonary trunk is dilated, measuring 3.9 cm diameter. This suggests pulmonary artery hype rtension. Lungs and pleural spaces: There are trace pleural effusions. Scarring/atelectasis is seen at the lung bases. No airspace consolidation is identified typical for pneumonia. The trachea and central airway s are clear. Mediastinum: There are numerous prominent mediastinal lymph nodes. Prevascular nodes measure up to 10 mm short axis. A pretracheal node measures 11 mm in short axis. Yahaira: Not well assessed without IV contrast. Axillae: There is no axillary lymphadenopathy. Upper abdomen: Partially visualized upper abdominal viscera is within normal limits. Skeletal structures: The skeletal structures are osteopenic. No lytic or blastic bony lesions are see n. Advanced arthritic change is seen in the shoulders. IMPRESSION: 1. Cardiomegaly and trace pleural effusions. 2. There is no airspace consolidation typical for pneumonia. 3. Additional findings as above. ACT 112: Negative or not required by law. Electronically signed by: Ty Martinez M.D. 08/19/2019 3:42 PM
[2019-08-19] MEDS: FERROUS SULFATE 325 MG TAB PO SCH (20:24)
[2019-08-20 05:42] LABS: Hematocrit (blood only) 27.8 % (37-47); Hemoglobin 9.2 g/dL (12.0-16.0); Mean Corpuscular Hemoglobin 32.3 pg (25-34); Mean Corpuscular Hgb Conc 33.1 g/dL (32-36); Mean Corpuscular Volume 97.5 fL (80-100); Nucleated RBC # (auto) 0.06 K/uL (0-0); Nucleated RBC % (auto) 0.8 %; RDW Coefficient of Variation 15.3 % (11.5-14.5); RDW Standard Deviation 54.3 fL (36.4-46.3); Red Blood Count 2.85 M/uL (4.2-5.4)
[2019-08-20 06:01] LABS: Mean Platelet Volume 11.9 fL (7.4-10.4); Platelet Count 87 K/uL (130-400)
[2019-08-20 06:02] LABS: Basophils # (auto) 0.01 K/uL (0-0.2); Basophils % (auto) 0.1 %; Echinocytes 1+; Eosinophils # (auto) 0.06 K/uL (0-0.5); Eosinophils % (auto) 0.8 %; Giant Platelets 2+; Immature Granulocytes # (auto) 0.09 K/uL (0.00-0.02); Immature Granulocytes % (auto) 1.2 %; Lymphocytes # (auto) 0.56 K/uL (1.2-3.4); Lymphocytes % (auto) 7.4 %; Monocytes # (auto) 0.62 K/uL (0.11-0.59); Monocytes % (auto) 8.2 %; Neutrophils # (auto) 6.26 K/uL (1.4-6.5); Neutrophils % (auto) 82.3 %; Platelet Estimate Decreased (Normal); Toxic Vacuolation 1+
[2019-08-20 06:09] LABS: Albumin Level 1.8 gm/dl (3.4-5.0); BUN Creatinine Ratio 22.8 (10-20); Calcium 8.4 mg/dl (8.5-10.1); Creatinine Clr Calc Pharmacy 24.8 ml/min; Est GFR (African American) 23.1; Est GFR (Non-African American) 19.9; Potassium 4.6 mmol/L (3.5-5.1)
[2019-08-20] MEDS: HEPARIN SOD 5,000 UNIT/0.5 ML VIAL SQ SCH (06:11)
[2019-08-20 06:12] LABS: Albumin Globulin Ratio 0.4 (0.9-2); Bilirubin,Total 0.4 mg/dl (0.2-1); Total Protein 5.8 gm/dl (6.4-8.2)
[2019-08-20] MEDS ORDERED: VANCOMYCIN HCL 1,500 MG in SODIUM CHLORIDE 0.9% 500 ML IV ONE (07:15)
[2019-08-20] MEDS: carvediloL 25 MG TAB PO SCH ×2 (08:21→20:05)
[2019-08-20] MEDS: DICLOFENAC SOD 1% GEL 100 GM TUBE EXT SCH ×4 (08:21→20:04)
[2019-08-20] MEDS: FLUTICASONE/SALMETEROL (ADVAIR) 500/50 INH 14 PUFF INH SCH ×2 (08:21→20:04)
[2019-08-20] MEDS: dilTIAZem HCL 180 MG CAPCR PO SCH (08:22)
[2019-08-20] MEDS: PANTOprazole 40 MG TAB PO SCH (08:22)
[2019-08-20] MEDS: POTASSIUM CHLORIDE 20 MEQ TABCR PO SCH (08:22)
[2019-08-20] MEDS: CYANOCOBALAMIN 500 MCG TABLET (VITAMIN B-12) PO SCH (08:22)
[2019-08-20] MEDS: ASPIRIN 81 MG ECTAB PO SCH (08:22)
[2019-08-20] MEDS: MAGNESIUM OXIDE 400 MG TAB PO SCH (08:22)
[2019-08-20] MEDS: SITAGLIPTIN PHOSPHATE 100 MG TAB PO SCH (08:22)
[2019-08-20] MEDS: PRAVASTATIN SOD 40 MG TAB PO SCH (08:23)
[2019-08-20] MEDS: ESCITALOPRAM OXALATE 10 MG TAB PO SCH (08:23)
[2019-08-20] MEDS: FAMOTIDINE 40 MG TABLET PO SCH (08:23)
[2019-08-20] MEDS: ISOSORBIDE MONO EXTENDED REL 60 MG TABCR PO SCH (08:23)
[2019-08-20] MEDS: CLOPIDOGREL BISULFATE 75 MG TAB PO SCH (08:23)
[2019-08-20] MEDS: MULTIVITAMIN TAB PO SCH (08:23)
[2019-08-20] MEDS: INSULIN ASPART 100 UNITS/ML 3 ML PEN SC SCH ×4 (08:24→20:44)
--- NOTE | 2019-08-20 09:48 | Pharmacy Report ---
Pharmacy Abx Dose Short Note - Date of Service August 20, 2019 - Assessment & Plan Assessment * 79 year old F receiving VANCOMYCIN + LEVOFLOXACIN for treatment of MRSA bacteremia + Pneumonia; pt does have h/o AVR * Day # 2 of antimicrobial therapy * 4/ BLCXs from 08/18 growing GPC in clusters and blood PCR ID'd this organism as MRSA * Repeat BLCXs drawn 08/19 * Renal fxn appears unchanged over last 24 hrs, possibly slightly worse (SCr 2.18-->2.25), UOP < 0.5mL/kg/hr based upon reported I/O's. No plans for HD at this time. Plan Vancomycin * Random level dranw this AM = 16.5mcg/mL drawn ~22 hrs after ~20mg/kg loading dose yesterday * Will give ~14mg/kg IV x 1 (1500mg) and check random level w/ AM labs tomorrow * Goal trough level for bacteremia : 15 to 20 mcg/mL * Estimated half-life > 24 hrs Pharmacy will continue to follow and will adjust dose/frequency as necessary. Thank you.
--- NOTE | 2019-08-20 10:05 | Nephrology Progress Note ---
Date of Service August 20, 2019 Assessment & Plan (1) Gram-positive bacteremia: MRSA. Culture positive 08/18. Follow up cultures pending. TTE negative for vegetation. Bioprosthetic AV valve. CT chest reviewed today. Afebrile. Remains on vanco; dosing per random levels. (2) PAF (paroxysmal atrial fibrillation): Cardiology following. Rates remain appropriate. (3) CAD (coronary artery disease): (4) Renal failure (ARF), acute on chronic: I suspect the etiology is related to prerenal azotemia and ATN in the setting of rapid atrial fibrillation and infection. Creatinine remains stable. Electrolytes are normal. Patient's volume status remains euvolemic and blood pressure controlled. She has evidence of predominately right sided heart failure and much of this may be chronic related to her underlying pulmonary hypertension. There is certainly no emergent indication for dialysis. I agree with using diuretics as needed to maintain an even fluid balance. At this time torsemide has been held. Input and output has been accurately documented. Medications are appropriately dosed for kidney function. Renal US demonstrates evidence of CKD without obstruction. Urine studies contsistent with ATN. (5) H/O aortic valve replacement with tissue graft: Subjective No acute events overnight. No fevers or chills. Breathing comfortably. Denies pa in. Review of Systems Review of Systems: All systems reviewed & are unremarkable except as noted in HPI & below Physical Exam Constitutional: well developed, + morbidly obese and + physical limitations; not edematous Eyes: + anicteric sclerae; no corneal abnormality ENMT: Mouth: no oral mucosal abnormality and oral mucous membranes not dry Neck: normal visual inspection and trachea midline Respiratory: normal respiratory effort and + tachypneic Auscultation: lungs clear to auscultation bilaterally and + rales (few right base) Cardiovascular: Rate/Rhythm: + bradycardic Heart Sounds: normal S1, normal S2 and + murmur Vessels: + JVD Extremities: no edema Gastrointestinal (Abdomen): Percussion/Palpation: abdomen soft; abdomen nontender Musculoskeletal: Extremities: no cyanosis and no clubbing Skin: normal turgor; no lesions Neurologic: Motor/Sensory: no tremor and no asterixis Psychiatric: Orientation: alert and oriented x 3 Results & Data Vital Signs (Past 12 Hours) Vital Signs Temp Pulse Pulse Resp BP Pulse Ox 08/20/19 08:00 66 08/20/19 06:51 36.4 C L 71 22 124/62 97 08/20/19 03:54 36.5 C 62 22 120/78 97 08/20/19 03:29 66 20 96 08/20/19 00:00 67 08/19/19 23:49 36.5 C 63 18 116/74 98 Laboratory Results Laboratory Results - last 24 hr 08/19/19 08/19/19 08/19/19 11:04 14:20 16:34 WBC RBC Hgb Hct MCV MCH MCHC RDW Std Deviation RDW Coeff of Albert Plt Count MPV Immature Gran % (Auto) Neut % (Auto) Lymph % (Auto) [place] % (Auto) Eos % (Auto) Baso % (Auto) Immature Gran # (Auto) Neut # (Auto) Lymph # (Auto) [place] # (Auto) Eos # (Auto) Baso # (Auto) Absolute Nucleated RBC Nucleated RBC % (auto) Toxic Vacuolation Platelet Estimate Giant Platelets Echinocytes Sodium Potassium Chloride Carbon Dioxide Anion Gap BUN Creatinine Est Cr Clr Drug Dosing Est GFR ( Amer) Est GFR (Non-Af Amer) BUN/Creatinine Ratio Glucose POC Glucose 180 H 179 H Calcium Total Bilirubin AST ALT Alkaline Phosphatase Total Protein Albumin Globulin Albumin/Globulin Ratio Urine Color Dark Yellow Urine Appearance Turbid A Urine pH 5.0 Ur Specific [place] 1.019 Urine Protein 1+ H Urine Glucose (UA) Negative Urine Ketones Negative Urine Blood 1+ H Urine Nitrite Negative Urine Bilirubin Negative Urine Urobilinogen Negative Ur Leukocyte Esterase Trace H Urine WBC (Auto) 5-10 H Urine RBC (Auto) 0-4 U Hyaline Cast (Auto) 5-10 H U Epithel Cells (Auto) >30 H Urine Bacteria (Auto) Negative Ur Renal Epithelial Cell 0-5 Granular Casts 5-10 H Urine Yeast Not Reportable Random Vancomycin 08/19/19 08/20/19 08/20/19 20:02 05:25 05:25 WBC RBC Hgb Hct MCV MCH MCHC RDW Std Deviation RDW Coeff of Albert Plt Count MPV Immature Gran % (Auto) Neut % (Auto) Lymph % (Auto) [place] % (Auto) Eos % (Auto) Baso % (Auto) Immature Gran # (Auto) Neut # (Auto) Lymph # (Auto) [place] # (Auto) Eos # (Auto) Baso # (Auto) Absolute Nucleated RBC Nucleated RBC % (auto) Toxic Vacuolation Platelet Estimate Giant Platelets Echinocytes Sodium 135 L Potassium 4.6 Chloride 104 Carbon Dioxide 25 Anion Gap 5.0 BUN 51 H Creatinine 2.25 H Est Cr Clr Drug Dosing 24.8 Est GFR ( Amer) 23.1 Est GFR (Non-Af Amer) 19.9 BUN/Creatinine Ratio 22.8 H Glucose 109 H POC Glucose 149 H Calcium 8.4 L Total Bilirubin 0.4 AST 22 ALT 19 Alkaline Phosphatase 68 Total Protein 5.8 L Albumin 1.8 L Globulin 4.0 Albumin/Globulin Ratio 0.4 L Urine Color Urine Appearance Urine pH Ur Specific [place] Urine Protein Urine Glucose (UA) Urine Ketones Urine Blood Urine Nitrite Urine Bilirubin Urine Urobilinogen Ur Leukocyte Esterase Urine WBC (Auto) Urine RBC (Auto) U Hyaline Cast (Auto) U Epithel Cells (Auto) Urine Bacteria (Auto) Ur Renal Epithelial Cell Granular Casts Urine Yeast Random Vancomycin 16.5 08/20/19 08/20/19 05:27 07:26 WBC 7.60 RBC 2.85 L Hgb 9.2 L Hct 27.8 L MCV 97.5 MCH 32.3 MCHC 33.1 RDW Std Deviation 54.3 H RDW Coeff of Albert 15.3 H Plt Count 87 L MPV 11.9 H Immature Gran % (Auto) 1.2 Neut % (Auto) 82.3 Lymph % (Auto) 7.4 [place] % (Auto) 8.2 Eos % (Auto) 0.8 Baso % (Auto) 0.1 Immature Gran # (Auto) 0.09 H Neut # (Auto) 6.26 Lymph # (Auto) 0.56 L [place] # (Auto) 0.62 H Eos # (Auto) 0.06 Baso # (Auto) 0.01 Absolute Nucleated RBC 0.06 H Nucleated RBC % (auto) 0.8 Toxic Vacuolation 1+ Platelet Estimate Decreased L Giant Platelets 2+ Echinocytes 1+ Sodium Potassium Chloride Carbon Dioxide Anion Gap BUN Creatinine Est Cr Clr Drug Dosing Est GFR ( Amer) Est GFR (Non-Af Amer) BUN/Creatinine Ratio Glucose POC Glucose 119 H Calcium Total Bilirubin AST ALT Alkaline Phosphatase Total Protein Albumin Globulin Albumin/Globulin Ratio Urine Color Urine Appearance Urine pH Ur Specific [place] Urine Protein Urine Glucose (UA) Urine Ketones Urine Blood Urine Nitrite Urine Bilirubin Urine Urobilinogen Ur Leukocyte Esterase Urine WBC (Auto) Urine RBC (Auto) U Hyaline Cast (Auto) U Epithel Cells (Auto) Urine Bacteria (Auto) Ur Renal Epithelial Cell Granular Casts Urine Yeast Random Vancomycin PG Care Time/CCT Total # of Minutes Spent Total Time Spent with Patient: Total time spent is greater than 50% in coordination of care (as documented) at patient's floor/unit and/or counseling patient: (1) CAD (coronary artery disease) Coronary Disease-Associated Artery/Lesion type: [place] artery [place] vs. transplanted heart: [place] heart Associated angina: angina presence unspecified Qualified Code(s): I25.10 - Atherosclerotic heart disease of [place] coronary artery without angina pectoris
--- NOTE | 2019-08-20 12:38 | Cardiology Progress Note ---
Date of Service August 20, 2019 Assessment & Plan (1) Gram-positive bacteremia: Likely culprit for patient's presenting complaints Patient clinically improved with antibiotic therapies and hydration Echocardiogram does not demonstrate overt prosthetic valve involvement on transthoracic study. No valvular insufficiency Goals will be long-term antibiotic therapies and serial echocardiograms as course progresses Patient with high risk infection, recent hospitalization, indwelling prosthetic valve. Await culture results recommendations ID evaluation expect patient will require extended antibiotic course (2) PAF (paroxysmal atrial fibrillation): Patient with past paroxysmal H arrhythmias now currently in atrial fibrillation with mildly elevated ventricular response rate of undetermined duration. Previously determined to be poor high anticoagulation risk heart rates now slowed with medical therapy suspect elevated heart rates are contributing to current complaints. Recent stress testing was negative for ischemia but patient with known coronary disease including past coronary event approximately 7 months. Prior stress testing 1 month ago Notable history is however prior to presentation for fall appear to be mechanical in nature with mild injury question of this is contributing to concerns or issues or whether atrial fibrillation contributed to patient's instability. Rates are controlled today Patient continues to have contraindications to anticoagulation (3) Chest pain: Symptoms do not appear to secondary to acute ischemia patient with chronic chest pain. Troponins mildly elevated but flat and consistent with past history. Recent stress testing negative for ischemia and symptoms prior not relieved by prior coronary interventions (4) Elevated troponin: (5) CAD (coronary artery disease): (6) Chronic respiratory failure with hypoxia, on home O2 therapy: (7) Renal failure (ARF), acute on chronic: (8) H/O aortic valve replacement with tissue graft: 2007 Subjective Patient seen and examined, chart, medications, telemetry reviewed. Patient appears brighter and free of complaint today. No chest pain or shortness of breath. Afebrile overnight Remains in atrial fibrillation with controlled ventricular response rate Blood pressures improving with antibiotics and rate control Physical Exam Constitutional: WD/WN, vitals as above + obese; no acute distress Eyes: PERRL, conjunctivae normal, anicteric sclerae ENMT: external ear and nose normal, oropharynx normal Neck: trachea midline, no thyromegaly Respiratory: normal respiratory effort, lungs clear to auscultation Auscultation: + diminished lung sounds and + crackles (Left base) Cardiovascular: Rate/Rhythm: + irregularly irregular Heart Sounds: normal S1, normal S2 and + murmur (Grade 1/6 to 2/6 systolic); no gallop Palpation: normal PMI Vessels: normal carotid upstroke and radial pulses present; no JVD, no carotid bruit and no femoral bruit Extremities: + edema (Trace) Gastrointestinal (Abdomen): normal bowel sounds, soft, nontender, no hepatosplenomegaly Musculoskeletal: no cyanosis or clubbing, extremities motor strength 5/5 Skin: no rashes, warm and dry Neurologic: PERRL, EOMI, accommodation nl, no face palsy, no dysarthria Psychiatric: A+Ox3, euthymic affect Results & Data Vital Signs (Past 12 Hours) Vital Signs Temp Pulse Pulse Pulse Resp BP Pulse Ox 08/20/19 11:31 36.5 C 67 19 135/74 97 08/20/19 08:00 66 08/20/19 06:51 36.4 C L 71 22 124/62 97 08/20/19 03:54 36.5 C 62 22 120/78 97 08/20/19 03:29 66 20 96 (1) Chest pain Chest pain type: unspecified Qualified Code(s): R07.9 - Chest pain, unspecified (2) CAD (coronary artery disease) Coronary Disease-Associated Artery/Lesion type: [place] artery [place] vs. transplanted heart: [place] heart Associated angina: angina presence unspecified Qualified Code(s): I25.10 - Atherosclerotic heart disease of [place] coronary artery without angina pectoris
--- NOTE | 2019-08-20 13:27 | Infectious Disease Consult ---
Date of Consultation August 20, 2019 Assessment & Plan (1) Gram positive sepsis: will need prolonged course of IV abx due to AVR although no veg noted on TTE. can stop levaquin from ID standpoint. would suggest changed to renal dosed dapto. repeat blood cultures pending, will follow. (2) H/O aortic valve replacement with tissue graft: History of Present Illness Attending Physician: Arcenio Gutierrez pt admitted with chest pain on 08/16, echo negative has AVR, no veg noted. had fevers 08/17, 08/18, tmax 38.8, blood cultures done on 08/18 and are growing gpc in cluster, MRSA PCR + - she is on levaquin and vanco., level today 16. afebrile currently. eating lunch on my exam. states no cp currenlty no sob, no cough. no abd pain, no n/v/d. repeat cultures pending. cardio following. UA negative. Ct chest negative for infiltrate. she is also on levaquin, wbc 7, creat 2.2. Allergies Allergy/AdvReac Type Severity Reaction Status Date / Time aspirin Allergy Unknown Unknown Verified 08/16/19 12:51 cefuroxime [From Ceftin] Allergy Unknown Unknown Verified 08/16/19 12:51 Cephalosporins Allergy Unknown Unknown Verified 08/16/19 12:51 doxycycline Allergy Unknown UNKNOWN Verified 08/16/19 12:51 hydrocodone Allergy Unknown Unknown Verified 08/16/19 12:51 neomycin Allergy Unknown Unknown Verified 08/16/19 12:51 propoxyphene Allergy Unknown Unknown Verified 08/16/19 12:51 Sulfa (Sulfonamide Allergy Unknown Unknown Verified 08/16/19 12:51 Antibiotics) metformin AdvReac Mild nausea Verified 08/16/19 12:51 vicodin tabs Allergy Unknown Uncoded 08/16/19 12:51 Home Medications Home Medications Medication Instructions Recorded Confirmed Type nitroglycerin [Nitrostat] 0.4 mg SUBLINGUAL DIRECTED PRN 01/06/19 08/16/19 History clopidogrel 75 mg tablet 75 mg PO DAILY #30 tab 03/19/19 08/16/19 Rx aspirin 81 mg tablet,delayed 81 mg PO DAILY #90 tab 04/22/19 08/16/19 Rx release coenzyme Q10 100 mg tablet 100 mg PO QPM #30 tab 04/22/19 08/16/19 Rx famotidine 40 mg tablet 40 mg PO QAM #90 tab 04/22/19 08/16/19 Rx ferrous sulfate 325 mg (65 mg 325 mg PO HS #90 tab 04/22/19 08/16/19 Rx iron) tablet magnesium oxide 400 mg (as 400 mg PO QAM #30 tab 04/22/19 08/16/19 Rx magnesium oxide) tablet mometasone-formoterol HFA 200 2 puff INHALATION BID #13 gm 04/22/19 08/16/19 Rx mcg-5 mcg/actuation aerosol inhaler multivitamin 1 tab PO QAM #60 tab 04/22/19 08/16/19 Rx pantoprazole 40 mg tablet,delayed 40 mg PO DAILY #90 tab 04/22/19 08/16/19 Rx release pravastatin 80 mg tablet 80 mg PO QAM #90 tab 04/22/19 08/16/19 Rx carvedilol [Coreg] 25 mg PO BID 07/19/19 08/16/19 History diltiazem HCl [Cardizem CD] 180 mg PO DAILY 07/19/19 08/16/19 History escitalopram oxalate 5 mg PO DAILY 07/19/19 08/16/19 History isosorbide mononitrate 120 mg PO BID 07/19/19 08/16/19 History torsemide 20 mg PO DAILY 07/19/19 08/16/19 History diclofenac sodium [Voltaren] 4 g EXT QID #1 tube 07/25/19 08/16/19 Rx albuterol sulfate 2.5 mg/3 mL 2.5 mg INHALATION Q4 PRN #75 ml 07/26/19 08/16/19 Rx (0.083 %) solution for nebulization albuterol sulfate 90 mcg/actuation 2 puff INHALATION Q4H PRN #18 gm 07/26/19 08/16/19 Rx aerosol inhaler cyanocobalamin (vitamin B-12) 500 500 mcg PO DAILY #30 tab 07/26/19 08/16/19 Rx mcg tablet potassium chloride 20 mEq 20 meq PO DAILY #90 tab 07/26/19 08/16/19 Rx tablet,extended release Januvia 100 mg PO DAILY 08/16/19 08/16/19 History Patient History Medical History Anemia Anxiety Arteriosclerotic cardiovascular disease Salazar's esophagus (Acute) CAD (coronary artery disease) CHF (congestive heart failure) (08/04/13) Chronic back pain CKD (chronic kidney disease) stage 3, GFR 30-59 ml/min Degeneration of cervical intervertebral disc Degenerative arthritis of knee (Acute) Diabetes mellitus Disc degeneration, lumbar (Acute) Generalized weakness GERD (gastroesophageal reflux disease) GI bleed HLD (hyperlipidemia) HTN (hypertension) On anticoagulant therapy plavix daily On home oxygen therapy 3L at all times LAINE on CPAP PAF (paroxysmal atrial fibrillation) Pulmonary hypertension, secondary Recurrent falls Renal insufficiency, mild T2DM (type 2 diabetes mellitus) Surgical History H/O aortic valve replacement @ [facility] – [place] History of cardiac cath 08/2013 Last cardiac cath demonstrated 2 vessel nonobstructive disease including mild LAD with 40% stenosis in proximal RCA with 40% stenosis and widely patent mid RCA stent. Medical management recommended at time. History of cardiac cath 01/07/2019 coronary angiography, 2 drug eluting stent placed 01/11/19 1 drug eluting stent placed----on plavix History of colonoscopy with polypectomy History of esophagogastroduodenoscopy (EGD) Hiatal hernia and Salazar's History of partial colectomy Secondary to obstruction History of percutaneous coronary intervention 05/24/2011 cardiac cath demonstrated severe single-vessel CAD with 70% mild RCA stenosis treated with PCI using MONTSE History of tooth extraction all teeth removed History of total hysterectomy with bilateral salpingo-oophorectomy (BSO) Family History Sister Cancer Breast cancer Myocardial infarction Brother Myocardial infarction Other Adopted Unknown family medical history Social History Preferred Language: Citizen Of [place] Communication Ability: Effective 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 Required: No Beliefs That Will Affect Care: None marital status: / Current Living Situation: Alone Current Living Situation Comment: lives in a trailer current occupational status: retired Feels Safe at Home: Yes Smoking Status: Never smoker Second Hand Exposure: Yes ( smoked) ; Hx Alcohol Use: No Hx Substance Use: No caffeine: Yes Dental Care, Regularly: No Physical Activity Frequency: Does not Exercise Seatbelt Use: always Sunscreen Use: No Review of Systems Review of Systems: All systems reviewed & are unremarkable except as noted in HPI & below Physical Exam Constitutional: WD/WN, vitals as above Eyes: PERRL, conjunctivae normal, anicteric sclerae ENMT: external ear and nose normal, oropharynx normal Neck: normal visual inspection Respiratory: normal respiratory effort, lungs clear to auscultation Cardiovascular: Rate/Rhythm: regular rate and regular rhythm Gastrointestinal (Abdomen): normal bowel sounds, soft, nontender, no hepatosplenomegaly Musculoskeletal: no cyanosis or clubbing, extremities motor strength 5/5 Skin: no rashes, warm and dry Psychiatric: A+Ox3, euthymic affect Results & Data Vital Signs (Past 12 Hours) Vital Signs Temp Pulse Pulse Pulse Resp BP Pulse Ox 08/20/19 11:31 36.5 C 67 19 135/74 97 08/20/19 08:00 66 08/20/19 06:51 36.4 C L 71 22 124/62 97 08/20/19 03:54 36.5 C 62 22 120/78 97 08/20/19 03:29 66 20 96 Laboratory Results Microbiology 08/19/19 16:23 Blood Aerobic Blood Culture - Preliminary Gram positive cocci clusters 08/19/19 16:17 Blood Aerobic Blood Culture - Preliminary Gram positive cocci clusters 08/18/19 11:51 Blood Aerobic Blood Culture - Preliminary Staphylococcus species 08/18/19 11:51 Blood Anaerobic Blood Culture - Preliminary Staphylococcus species 08/18/19 11:36 Blood Aerobic Blood Culture - Preliminary Gram positive cocci clusters 08/18/19 11:36 Blood Anaerobic Blood Culture - Preliminary Gram positive cocci clusters PG Care Time/CCT Total # of Minutes Spent Total Time Spent with Patient: Total time spent is greater than 50% in coordination of care (as documented) at patient's floor/unit and/or counseling patient:
[2019-08-20] MEDS: LEVOFLOXACIN/D5W 750 MG/150 ML BAG IV SCH (14:37)
[2019-08-20] MEDS ORDERED: DAPTOmycin 475 MG in SYRINGE 0 ML IV ONE (19:00)
[2019-08-20] MEDS ORDERED: DAPTOMYCIN CONSULT ACTIVE PRN (19:12)
[2019-08-20] MEDS: FERROUS SULFATE 325 MG TAB PO SCH (20:05)
[2019-08-20] MEDS: MICONAZOLE NITRATE POWDER 43 GM EXT PRN (20:08)
--- NOTE | 2019-08-20 22:29 | Hospitalist Progress Note ---
Date of Service August 20, 2019 Assessment & Plan (1) Staphylococcus aureus bacteremia: Blood cultures drawn on 08/18. Presently 4/4 bottles positive. MRSA PCR positive. Unclear source (possibly pneumonia?). - Was on vancomycin, switchd to daptomycin - Repeat blood cultures again on 08/20 as they remain positive. - Chest CT for septic emboli - TTE (2) Pulmonary edema: CXR on 08/18 showed cardiomegaly without overt pulmonary edema. Does show left basilar opacities with procalcitonin high; however, this may be due to her bacteremia. - Continue levofloxacin - Chest CT -> Concern for septic emboli possibly. - DuoNebs every 4 hours as needed for shortness of breath. (3) Chest pain: Appears to be at least partially non-cardiac as she does have tenderness to palpation and her prior admission was for similar issue. Patient had recent stress test which was negative for ischemia and symptoms prior not relieved by prior coronary intervention. - Continue carvedilol & reduced isosorbide 120mg. - Continue all other patient medication including oral diltiazem. (4) CKD (chronic kidney disease) stage 3, GFR 30-59 ml/min: Baseline Cr ~1.4. - Now with YENNI on CKD, Cr up to 2.2 on 08/18. - Holding diuretic at this time. - Avoid nephrotoxic agents. - Continue monitoring creatinine (5) T2DM (type 2 diabetes mellitus): A1c was a 6.9% in 07/2019. - ADA diet - Continue Januvia - Sliding scale insulin coverage (6) PAF (paroxysmal atrial fibrillation): In A.fib at this time. Previous anticoagulation with warfarin resulted in a GI bleed with shock. She is known to have extensive diverticulosis. No anticoagulation has been used since that time. - Rates in the 110's initially; now in the 60s. - Continue Cardizem CD 180mg daily. (7) Chronic respiratory failure with hypoxia, on home O2 therapy: Reporting continued shortness of breath, though on her home O2. - Continue Albuterol nebs prn - Continue oxygen and Symbicort - Supplemental oxygen as needed to keep oxygenation above 92%. (8) CAD (coronary artery disease): In 07/2019, her nuclear stress test neg for ischemia. - Continue aspirin, plavix, coreg, and statin. - As above for chest pain (9) DVT prophylaxis: Subjective 79 yo female reports feeling well. She denies any other symptoms. Review of Systems Review of Systems: All systems reviewed & are unremarkable except as noted in HPI & below Physical Exam Physical Exam: Constitutional: WD/WN, vitals as above Eyes: EOM intact bilaterally; no conjunctival abnormality ENMT: external ear and nose normal, oropharynx normal Neck: trachea midline, no thyromegaly normal visual inspection Respiratory: normal respiratory effort, lungs clear to auscultation no respiratory distress Cardiovascular: RRR, no murmur, no edema Gastrointestinal (Abdomen): Inspection/Auscultation: abdomen normal to inspection; abdomen not distended Musculoskeletal: no cyanosis or clubbing, extremities motor strength 5/5 Skin: no rashes, warm and dry Neurologic: moves all extremities and awake Psychiatric: Orientation: alert, oriented to person and cooperative Results & Data Vital Signs (Past 12 Hours) Vital Signs Temp Pulse Pulse Resp BP Pulse Ox 08/20/19 22:04 75 16 91 08/20/19 19:11 37.1 C 56 L 18 134/83 96 08/20/19 16:00 66 08/20/19 15:06 36.8 C 69 20 127/83 97 08/20/19 11:31 36.5 C 67 19 135/74 97 PG Care Time/CCT Total # of Minutes Spent Total Time Spent with Patient: Total time spent is greater than 50% in coordination of care (as documented) at patient's floor/unit and/or counseling patient: (1) T2DM (type 2 diabetes mellitus) Diabetes mellitus assisted insulin use: without meterman use (2) CAD (coronary artery disease) Associated angina: angina presence unspecified Coronary Disease-Associated Artery/Lesion type: [place] artery [place] vs. transplanted heart: [place] heart Qualified Code(s): I25.10 - Atherosclerotic heart disease of [place] coronary artery without angina pectoris (3) Chest pain Chest pain type: unspecified Qualified Code(s): R07.9 - Chest pain, unspecified
[2019-08-21 06:52] LABS: Hematocrit (blood only) 26.8 % (37-47); Hemoglobin 8.9 g/dL (12.0-16.0); Mean Corpuscular Hgb Conc 33.2 g/dL (32-36); Mean Corpuscular Volume 96.4 fL (80-100); Nucleated RBC # (auto) 0.04 K/uL (0-0); Nucleated RBC % (auto) 0.5 %; Platelet Count 65 K/uL (130-400); RDW Coefficient of Variation 15.4 % (11.5-14.5); RDW Standard Deviation 54.4 fL (36.4-46.3); Red Blood Count 2.78 M/uL (4.2-5.4); White Blood Count 6.84 K/uL (4.8-10.8)
[2019-08-21 06:55] LABS: Basophils # (auto) 0.01 K/uL (0-0.2); Basophils % (auto) 0.1 %; Echinocytes 1+; Eosinophils # (auto) 0.04 K/uL (0-0.5); Eosinophils % (auto) 0.6 %; Immature Granulocytes # (auto) 0.15 K/uL (0.00-0.02); Immature Granulocytes % (auto) 2.2 %; Lymphocytes # (auto) 0.63 K/uL (1.2-3.4); Lymphocytes % (auto) 9.2 %; Monocytes # (auto) 0.83 K/uL (0.11-0.59); Monocytes % (auto) 12.1 %; Neutrophils # (auto) 5.18 K/uL (1.4-6.5); Neutrophils % (auto) 75.8 %
[2019-08-21 07:08] LABS: Albumin Level 1.7 gm/dl (3.4-5.0); BUN Creatinine Ratio 24.4 (10-20); Calcium 8.2 mg/dl (8.5-10.1); Creatinine Clr Calc Pharmacy 28.3 ml/min; Est GFR (African American) 26.7; Potassium 4.9 mmol/L (3.5-5.1)
[2019-08-21 07:10] LABS: Albumin Globulin Ratio 0.4 (0.9-2); Bilirubin,Total 0.5 mg/dl (0.2-1); Globulin 3.9 gm/dl (2.5-4.0); Total Protein 5.6 gm/dl (6.4-8.2)
[2019-08-21] MEDS: INSULIN ASPART 100 UNITS/ML 3 ML PEN SC SCH ×4 (08:18→21:00)
[2019-08-21] MEDS: ESCITALOPRAM OXALATE 10 MG TAB PO SCH (08:20)
[2019-08-21] MEDS: MAGNESIUM OXIDE 400 MG TAB PO SCH (08:20)
[2019-08-21] MEDS: SITAGLIPTIN PHOSPHATE 100 MG TAB PO SCH (08:20)
[2019-08-21] MEDS: CLOPIDOGREL BISULFATE 75 MG TAB PO SCH (08:20)
[2019-08-21] MEDS: carvediloL 25 MG TAB PO SCH ×2 (08:21→21:13)
[2019-08-21] MEDS: MULTIVITAMIN TAB PO SCH (08:21)
[2019-08-21] MEDS: POTASSIUM CHLORIDE 20 MEQ TABCR PO SCH (08:22)
[2019-08-21] MEDS: ASPIRIN 81 MG ECTAB PO SCH (08:22)
[2019-08-21] MEDS: dilTIAZem HCL 180 MG CAPCR PO SCH (08:23)
[2019-08-21] MEDS: CYANOCOBALAMIN 500 MCG TABLET (VITAMIN B-12) PO SCH (08:23)
[2019-08-21] MEDS: ISOSORBIDE MONO EXTENDED REL 60 MG TABCR PO SCH (08:23)
[2019-08-21] MEDS: DICLOFENAC SOD 1% GEL 100 GM TUBE EXT SCH ×4 (08:24→21:14)
[2019-08-21] MEDS: FLUTICASONE/SALMETEROL (ADVAIR) 500/50 INH 14 PUFF INH SCH ×2 (08:24→21:12)
[2019-08-21] MEDS: PANTOprazole 40 MG TAB PO SCH (08:24)
[2019-08-21] MEDS: FAMOTIDINE 40 MG TABLET PO SCH (08:24)
--- NOTE | 2019-08-21 11:37 | Nephrology Progress Note ---
Date of Service August 21, 2019 Assessment & Plan (1) Gram-positive bacteremia: MRSA. Culture positive 08/18 + 08/19. Follow up cultures from yesterday pending. TTE negative for vegetation. Bioprosthetic AV valve. CT chest reviewed today. Afebrile. ID consult reviewed. Started treatment with renal dose daptomycin. (2) PAF (paroxysmal atrial fibrillation): Appropriately controlled. (3) CAD (coronary artery disease): No ACS. (4) Renal failure (ARF), acute on chronic: Related to prerenal azotemia and ATN in the setting of bacteremia and atrial fibrillation. Creatinine starting to improve. Electrolytes are normal. Patient's volume status remains euvolemic and blood pressure controlled. She has evidence of predominately right sided heart failure and much of this may be chronic related to her underlying pulmonary hypertension. There is certainly no emergent indication for dialysis. Diuretics as needed to maintain an even fluid balance. Torsemide 20 mg daily has been held and Marta has been in a slightly positive fluid balance in the past 24 hours. Medications are appropriately dosed for kidney function. Renal US demonstrates evidence of CKD without obstruction. Urine studies contsistent with ATN. (5) H/O aortic valve replacement with tissue graft: Subjective No acute events overnight. Marta feels slightly better today. She remains weak. She denies chest pain or palpitations. No fevers or chills. Review of Systems Review of Systems: All systems reviewed & are unremarkable except as noted in HPI & below Physical Exam Constitutional: well developed and + physical limitations; not edematous Eyes: + anicteric sclerae; no corneal abnormality ENMT: Mouth: no oral mucosal abnormality and oral mucous membranes not dry Neck: normal visual inspection and trachea midline Respiratory: normal respiratory effort and + tachypneic Auscultation: lungs clear to auscultation bilaterally Cardiovascular: Rate/Rhythm: + irregularly irregular Heart Sounds: normal S1, normal S2 and + murmur Vessels: + JVD Extremities: no edema Gastrointestinal (Abdomen): Percussion/Palpation: abdomen soft; abdomen nontender Musculoskeletal: Extremities: no cyanosis and no clubbing Skin: normal turgor; no lesions Neurologic: Motor/Sensory: no tremor and no asterixis Psychiatric: Orientation: alert and oriented x 3 Results & Data Vital Signs (Past 12 Hours) Vital Signs Temp Pulse Pulse Pulse Resp BP Pulse Ox 08/21/19 07:30 36.6 C 80 22 142/85 H 97 08/21/19 04:38 70 18 96 08/21/19 03:24 37 C 69 20 111/66 96 08/21/19 01:22 69 18 94 08/20/19 23:48 36.8 C 66 20 108/68 96 Laboratory Results Laboratory Results - last 24 hr 08/20/19 08/20/19 08/20/19 11:29 16:13 20:18 WBC RBC Hgb Hct MCV MCH MCHC RDW Std Deviation RDW Coeff of Albert Plt Count MPV Immature Gran % (Auto) Neut % (Auto) Lymph % (Auto) [place] % (Auto) Eos % (Auto) Baso % (Auto) Immature Gran # (Auto) Neut # (Auto) Lymph # (Auto) [place] # (Auto) Eos # (Auto) Baso # (Auto) Absolute Nucleated RBC Nucleated RBC % (auto) Echinocytes Sodium Potassium Chloride Carbon Dioxide Anion Gap BUN Creatinine Est Cr Clr Drug Dosing Est GFR ( Amer) Est GFR (Non-Af Amer) BUN/Creatinine Ratio Glucose POC Glucose 118 H 204 H 102 H Calcium Total Bilirubin AST ALT Alkaline Phosphatase Total Protein Albumin Globulin Albumin/Globulin Ratio Random Vancomycin 08/21/19 08/21/19 08/21/19 06:15 06:15 06:15 WBC 6.84 RBC 2.78 L Hgb 8.9 L Hct 26.8 L MCV 96.4 MCH 32.0 MCHC 33.2 RDW Std Deviation 54.4 H RDW Coeff of Albert 15.4 H Plt Count 65 L MPV 13.0 H Immature Gran % (Auto) 2.2 Neut % (Auto) 75.8 Lymph % (Auto) 9.2 [place] % (Auto) 12.1 Eos % (Auto) 0.6 Baso % (Auto) 0.1 Immature Gran # (Auto) 0.15 H Neut # (Auto) 5.18 Lymph # (Auto) 0.63 L [place] # (Auto) 0.83 H Eos # (Auto) 0.04 Baso # (Auto) 0.01 Absolute Nucleated RBC 0.04 H Nucleated RBC % (auto) 0.5 Echinocytes 1+ Sodium 135 L Potassium 4.9 Chloride 106 Carbon Dioxide 22 Anion Gap 7.0 BUN 49 H Creatinine 2.00 H Est Cr Clr Drug Dosing 28.3 Est GFR ( Amer) 26.7 Est GFR (Non-Af Amer) 23.0 BUN/Creatinine Ratio 24.4 H Glucose 111 H POC Glucose Calcium 8.2 L Total Bilirubin 0.5 AST 25 ALT 20 Alkaline Phosphatase 63 Total Protein 5.6 L Albumin 1.7 L Globulin 3.9 Albumin/Globulin Ratio 0.4 L Random Vancomycin 19.7 08/21/19 07:36 WBC RBC Hgb Hct MCV MCH MCHC RDW Std Deviation RDW Coeff of [place] Plt Count MPV Immature Gran % (Auto) Neut % (Auto) Lymph % (Auto) [place] % (Auto) Eos % (Auto) Baso % (Auto) Immature Gran # (Auto) Neut # (Auto) Lymph # (Auto) [place] # (Auto) Eos # (Auto) Baso # (Auto) Absolute Nucleated RBC Nucleated RBC % (auto) Echinocytes Sodium Potassium Chloride Carbon Dioxide Anion Gap BUN Creatinine Est Cr Clr Drug Dosing Est GFR ( Amer) Est GFR (Non-Af Amer) BUN/Creatinine Ratio Glucose POC Glucose 127 H Calcium Total Bilirubin AST ALT Alkaline Phosphatase Total Protein Albumin Globulin Albumin/Globulin Ratio Random Vancomycin PG Care Time/CCT Total # of Minutes Spent Total Time Spent with Patient: Total time spent is greater than 50% in coordination of care (as documented) at patient's floor/unit and/or counseling patient: (1) CAD (coronary artery disease) Coronary Disease-Associated Artery/Lesion type: [place] artery [place] vs. transplanted heart: [place] heart Associated angina: angina presence unspecified Qualified Code(s): I25.10 - Atherosclerotic heart disease of [place] coronary artery without angina pectoris
--- NOTE | 2019-08-21 14:53 | Cardiology Progress Note ---
Date of Service August 21, 2019 Assessment & Plan (1) Gram-positive bacteremia: Likely culprit for patient's presenting complaints Patient clinically improved with antibiotic therapies and hydration Echocardiogram does not demonstrate overt prosthetic valve involvement on transthoracic study. No valvular insufficiency Goals will be long-term antibiotic therapies and serial echocardiograms as course progresses We will arrange for outpatient echocardiogram in 1 month. Patient with high risk infection, recent hospitalization, indwelling prosthetic valve. Await culture results recommendations ID evaluation expect patient will require extended antibiotic course Okay to discharge from a cardiac standpoint. (2) PAF (paroxysmal atrial fibrillation): Patient with past paroxysmal H arrhythmias now currently in atrial fibrillation with mildly elevated ventricular response rate of undetermined duration. Previously determined to be poor high anticoagulation risk heart rates now slowed with medical therapy suspect elevated heart rates are contributing to current complaints. Recent stress testing was negative for ischemia but patient with known coronary disease including past coronary event approximately 7 months. Prior stress testing 1 month ago Notable history is however prior to presentation for fall appear to be mechanical in nature with mild injury question of this is contributing to concerns or issues or whether atrial fibrillation contributed to patient's instability. Rates are controlled Patient continues to have contraindications to anticoagulation (3) Chest pain: Symptoms do not appear to secondary to acute ischemia patient with chronic chest pain. Troponins mildly elevated but flat and consistent with past history. Recent stress testing negative for ischemia and symptoms prior not relieved by prior coronary interventions (4) Elevated troponin: (5) CAD (coronary artery disease): (6) Chronic respiratory failure with hypoxia, on home O2 therapy: (7) Renal failure (ARF), acute on chronic: Uncertain precipitating cause diuretics have been held, blood cultures drawn Hypertension better controlled currently patient symptoms appear to be improved without certain intervention we will continue to follow (8) H/O aortic valve replacement with tissue graft: 2007 Subjective Patient seen and examined seated upright in bed. States that she feels well. States that she has now her usual state of health and is anxious for discharge. Her strength is returned as has her appetite. She denies any chest pain, shortness of breath, palpitations, lightheadedness, dizziness or syncope. Telemetry reviewed: Atrial fibrillation rate controlled. Review of Systems Review of Systems: All systems reviewed & are unremarkable except as noted in HPI & below Physical Exam Physical Exam: General: Awake, alert and oriented x 3. No acute distress. HEENT: Normocephalic, atraumatic. Pupils equal, round and reactive to light and accommodation. Extraocular muscles are intact. Anicteric sclera. Moist mucous membranes. Neck: No JVD. No bruit. Cardiovascular: irregularly irregular, unable to appreciate murmur, rub or gallop. Pulmonary: Clear to auscultation bilaterally. No rales, rhonchi, or wheezing. Abdomen: Bowel sounds x 4, soft. No rebound, guarding or tenderness. No organomegaly. Extremities: No clubbing, cyanosis or edema. +2 pedal pulses bilaterally. Skin: Warm and dry. Results & Data Vital Signs (Past 12 Hours) Vital Signs Temp Pulse Pulse Pulse Resp BP Pulse Ox 08/21/19 12:00 36.6 C 72 22 106/64 98 08/21/19 07:40 74 08/21/19 07:30 36.6 C 80 22 142/85 H 97 08/21/19 04:38 70 18 96 08/21/19 03:24 37 C 69 20 111/66 96 (1) Chest pain Chest pain type: unspecified Qualified Code(s): R07.9 - Chest pain, unspecified (2) CAD (coronary artery disease) Coronary Disease-Associated Artery/Lesion type: [place] artery [place] vs. transplanted heart: [place] heart Associated angina: angina presence unspecified Qualified Code(s): I25.10 - Atherosclerotic heart disease of [place] coronary artery without angina pectoris
[2019-08-21] MEDS: FERROUS SULFATE 325 MG TAB PO SCH (21:14)
--- NOTE | 2019-08-21 22:05 | Hospitalist Progress Note ---
Date of Service August 21, 2019 Assessment & Plan (1) Staphylococcus aureus bacteremia: Blood cultures drawn on 08/18. Presently 4/4 bottles positive. MRSA PCR positive. Unclear source (possibly pneumonia?). - Was on vancomycin, switched to daptomycin on 08/20 -currently renal dose. - Repeat blood cultures remain positive. - Chest CT for septic emboli - TTE completed: no vegetations (2) Pulmonary edema: CXR on 08/18 showed cardiomegaly without overt pulmonary edema. Does show left basilar opacities with procalcitonin high; however, this may be due to her bacteremia. - Continue levofloxacin - Chest CT -> Concern for septic emboli possibly. - DuoNebs every 4 hours as needed for shortness of breath. (3) Chest pain: Appears to be at least partially non-cardiac as she does have tenderness to palpation and her prior admission was for similar issue. Patient had recent stress test which was negative for ischemia and symptoms prior not relieved by prior coronary intervention. - Continue carvedilol & reduced isosorbide 120mg. - Continue all other patient medication including oral diltiazem. (4) CKD (chronic kidney disease) stage 3, GFR 30-59 ml/min: Baseline Cr ~1.4. -remains elevtaed - Holding diuretic at this time. - Avoid nephrotoxic agents. - Continue monitoring creatinine (5) T2DM (type 2 diabetes mellitus): A1c was a 6.9% in 07/2019. - ADA diet - Continue Januvia - Sliding scale insulin coverage (6) PAF (paroxysmal atrial fibrillation): In A.fib at this time. Previous anticoagulation with warfarin resulted in a GI bleed with shock. She is known to have extensive diverticulosis. No anticoagulation has been used since that time. - Rates in the 110's initially; now in the 60s. - Continue Cardizem CD 180mg daily. (7) Chronic respiratory failure with hypoxia, on home O2 therapy: Reporting continued shortness of breath, though on her home O2. - Continue Albuterol nebs prn - Continue oxygen and Symbicort - Supplemental oxygen as needed to keep oxygenation above 92%. (8) CAD (coronary artery disease): In 07/2019, her nuclear stress test neg for ischemia. - Continue aspirin, plavix, coreg, and statin. - As above for chest pain (9) DVT prophylaxis: Subjective Patient reports no new symptoms. Review of Systems Review of Systems: All systems reviewed & are unremarkable except as noted in HPI & below Physical Exam Physical Exam: Constitutional: WD/WN, vitals as above Eyes: EOM intact bilaterally; no conjunctival abnormality ENMT: external ear and nose normal, oropharynx normal Neck: trachea midline, no thyromegaly normal visual inspection Respiratory: normal respiratory effort, lungs clear to auscultation no respiratory distress Cardiovascular: RRR, no murmur, no edema Gastrointestinal (Abdomen): Inspection/Auscultation: abdomen normal to in spection; abdomen not distended Musculoskeletal: no cyanosis or clubbing, extremities motor strength 5/5 Skin: no rashes, warm and dry Neurologic: moves all extremities and awake Psychiatric: Orientation: alert, oriented to person and cooperative Results & Data Vital Signs (Past 12 Hours) Vital Signs Temp Pulse Pulse Resp BP BP Pulse Ox 08/21/19 21:00 20 98 08/21/19 19:07 36.6 C 61 20 109/69 98 08/21/19 15:21 36.5 C 67 20 111/75 98 08/21/19 14:20 68 08/21/19 12:00 36.6 C 72 22 106/64 98 PG Care Time/CCT Total # of Minutes Spent Total Time Spent with Patient: Total time spent is greater than 50% in coordination of care (as documented) at patient's floor/unit and/or counseling patient: (1) T2DM (type 2 diabetes mellitus) Diabetes mellitus superintendent container terminal insulin use: without superintendent container terminal use (2) CAD (coronary artery disease) Associated angina: angina presence unspecified Coronary Disease-Associated Artery/Lesion type: [place] artery [place] vs. transplanted heart: [place] heart Qualified Code(s): I25.10 - Atherosclerotic heart disease of [place] coronary artery without angina pectoris (3) Chest pain Chest pain type: unspecified Qualified Code(s): R07.9 - Chest pain, unspecified
[2019-08-22 06:52] LABS: Creatinine Clr Calc Pharmacy 31.9 ml/min; Est GFR (African American) 30.7; Est GFR (Non-African American) 26.5
[2019-08-22] MEDS: INSULIN ASPART 100 UNITS/ML 3 ML PEN SC SCH ×4 (08:28→22:44)
[2019-08-22] MEDS: FLUTICASONE/SALMETEROL (ADVAIR) 500/50 INH 14 PUFF INH SCH ×2 (09:06→23:53)
[2019-08-22] MEDS: ESCITALOPRAM OXALATE 10 MG TAB PO SCH (09:07)
[2019-08-22] MEDS: CLOPIDOGREL BISULFATE 75 MG TAB PO SCH (09:07)
[2019-08-22] MEDS: MULTIVITAMIN TAB PO SCH (09:08)
[2019-08-22] MEDS: POTASSIUM CHLORIDE 20 MEQ TABCR PO SCH (09:08)
[2019-08-22] MEDS: ISOSORBIDE MONO EXTENDED REL 60 MG TABCR PO SCH (09:08)
[2019-08-22] MEDS: MAGNESIUM OXIDE 400 MG TAB PO SCH (09:09)
[2019-08-22] MEDS: CYANOCOBALAMIN 500 MCG TABLET (VITAMIN B-12) PO SCH (09:09)
[2019-08-22] MEDS: dilTIAZem HCL 180 MG CAPCR PO SCH (09:09)
[2019-08-22] MEDS: PANTOprazole 40 MG TAB PO SCH (09:10)
[2019-08-22] MEDS: carvediloL 25 MG TAB PO SCH ×2 (09:10→23:53)
[2019-08-22] MEDS: FAMOTIDINE 40 MG TABLET PO SCH (09:10)
[2019-08-22] MEDS: ASPIRIN 81 MG ECTAB PO SCH (09:10)
[2019-08-22] MEDS: SITAGLIPTIN PHOSPHATE 100 MG TAB PO SCH (09:10)
[2019-08-22] MEDS: DICLOFENAC SOD 1% GEL 100 GM TUBE EXT SCH ×4 (09:13→22:45)
--- NOTE | 2019-08-22 10:48 | Nephrology Progress Note ---
Date of Service August 22, 2019 Assessment & Plan (1) Gram-positive bacteremia: MRSA. Culture positive 08/18 + 08/19 + 08/20. Follow up cultures from yesterday pending. TTE negative for vegetation. Bioprosthetic AV valve. CT chest reviewed today. Afebrile. ID consult reviewed. Remains on renally dosed daptomycin. (2) PAF (paroxysmal atrial fibrillation): Rate controlled. Denies significant symptoms. Cardiology following. No anticoagulation due to GI bleed history/risk. (3) CAD (coronary artery disease): (4) Renal failure (ARF), acute on chronic: Related to prerenal azotemia and ATN in the setting of bacteremia and atrial fibrillation. Creatinine continues to improve. Electrolytes are normal. Patient's volume status remains euvolemic and blood pressure controlled. She is in a negative fluid balance despite holding diuretics. Marta had been on torsemide 20 mg daily. She has evidence of predominately right sided heart failure and much of this may be chronic related to her underlying pulmonary hypertension. Medications are appropriately dosed for kidney function. Renal US demonstrates evidence of CKD without obstruction. Urine studies consistent with ATN. Marta has not required any additional diuretic at this time. Her kidney function is improving. Electrolytes are acceptable. Nephrology will follow peripherally as needed. Please call with any questions or concerns. (5) H/O aortic valve replacement with tissue graft: Subjective No acute events overnight. Marta feels well this morning. Breathing is comfortable. She denies chest pain or palpitations. Review of Systems Review of Systems: All systems reviewed & are unremarkable except as noted in HPI & below Physical Exam Constitutional: well developed and + physical limitations; not edematous Eyes: + anicteric sclerae; no corneal abnormality ENMT: Mouth: no oral mucosal abnormality and oral mucous membranes not dry Neck: normal visual inspection and trachea midline Respiratory: normal respiratory effort and + tachypneic Auscultation: lungs clear to auscultation bilaterally Cardiovascular: Rate/Rhythm: + irregularly irregular Heart Sounds: normal S1, normal S2 and + murmur Vessels: + JVD Extremities: no edema Gastrointestinal (Abdomen): Percussion/Palpation: abdomen soft; abdomen nontender Musculoskeletal: Extremities: no cyanosis and no clubbing Skin: normal turgor; no lesions Neurologic: Motor/Sensory: no tremor and no asterixis Psychiatric: Orientation: alert and oriented x 3 Results & Data Vital Signs (Past 12 Hours) Vital Signs Temp Pulse Pulse Resp BP Pulse Ox 08/22/19 08:20 74 08/22/19 06:58 36.5 C 76 20 132/85 98 08/22/19 03:49 36.5 C 64 22 129/76 96 08/21/19 23:50 20 98 08/21/19 23:03 36.4 C L 67 18 126/72 96 Laboratory Results Laboratory Results - last 24 hr 08/21/19 08/21/19 08/21/19 11:34 16:18 20:21 Creatinine Est Cr Clr Drug Dosing Est GFR ( Amer) Est GFR (Non-Af Amer) POC Glucose 154 H 116 H 136 H 08/22/19 08/22/19 06:04 07:35 Creatinine 1.78 H Est Cr Clr Drug Dosing 31.9 Est GFR ( Amer) 30.7 Est GFR (Non-Af Amer) 26.5 POC Glucose 130 H PG Care Time/CCT Total # of Minutes Spent Total Time Spent with Patient: Total time spent is greater than 50% in coordination of care (as documented) at patient's floor/unit and/or counseling patient: (1) CAD (coronary artery disease) Associated angina: angina presence unspecified Coronary Disease-Associated Artery/Lesion type: [place] artery [place] vs. transplanted heart: [place] heart Qualified Code(s): I25.10 - Atherosclerotic heart disease of [place] coronary artery without angina pectoris
[2019-08-22 13:02] LABS: Hematocrit (blood only) 26.4 % (37-47); Hemoglobin 8.8 g/dL (12.0-16.0); Mean Corpuscular Hemoglobin 32.1 pg (25-34); Mean Corpuscular Hgb Conc 33.3 g/dL (32-36); Mean Corpuscular Volume 96.4 fL (80-100); Mean Platelet Volume 12.5 fL (7.4-10.4); Nucleated RBC # (auto) 0.02 K/uL (0-0); Nucleated RBC % (auto) 0.3 %; Platelet Count 70 K/uL (130-400); RDW Coefficient of Variation 15.7 % (11.5-14.5); RDW Standard Deviation 54.8 fL (36.4-46.3); Red Blood Count 2.74 M/uL (4.2-5.4); White Blood Count 7.09 K/uL (4.8-10.8)
[2019-08-22] MEDS: DAPTOmycin 650 MG in SYRINGE 0 ML IV SCH (14:04)
--- NOTE | 2019-08-22 14:15 | Cardiology Progress Note ---
Date of Service August 22, 2019 Assessment & Plan (1) Gram-positive bacteremia: Likely culprit for patient's presenting complaints Patient clinically improved with antibiotic therapies and hydration Echocardiogram does not demonstrate overt prosthetic valve involvement on transthoracic study. No valvular insufficiency Goals will be long-term antibiotic therapies and serial echocardiograms as course progresses We will arrange for outpatient echocardiogram in 1 month. Patient with high risk infection, recent hospitalization, indwelling prosthetic valve. Await culture results recommendations ID evaluation expect patient will require extended antibiotic course Okay to discharge from a cardiac standpoint. (2) PAF (paroxysmal atrial fibrillation): Patient with past paroxysmal H arrhythmias now currently in atrial fibrillation with mildly elevated ventricular response rate of undetermined duration. Previously determined to be poor high anticoagulation risk heart rates now slowed with medical therapy suspect elevated heart rates are contributing to current complaints. Recent stress testing was negative for ischemia but patient with known coronary disease including past coronary event approximately 7 months. Prior stress testing 1 month ago Notable history is however prior to presentation for fall appear to be mechanical in nature with mild injury question of this is contributing to concerns or issues or whether atrial fibrillation contributed to patient's instability. Rates are controlled Patient continues to have contraindications to anticoagulation (3) Chest pain: Symptoms do not appear to secondary to acute ischemia patient with chronic chest pain. Troponins mildly elevated but flat and consistent with past history. Recent stress testing negative for ischemia and symptoms prior not relieved by prior coronary interventions (4) Elevated troponin: (5) CAD (coronary artery disease): (6) Chronic respiratory failure with hypoxia, on home O2 therapy: (7) Renal failure (ARF), acute on chronic: Uncertain precipitating cause diuretics have been held, blood cultures drawn Hypertension better controlled currently patient symptoms appear to be improved without certain intervention we will continue to follow (8) H/O aortic valve replacement with tissue graft: 2007 Subjective Patient seen and examined seated upright in bed. No complaints overnight states that she is feeling well. Denies any chest pain, shortness of breath, pa lpitations, lightheadedness, dizziness or syncope. Telemetry reviewed: Atrial fibrillation rate controlled. Review of Systems Review of Systems: All systems reviewed & are unremarkable except as noted in HPI & below Physical Exam Physical Exam: General: Awake, alert and oriented x 3. No acute distress. HEENT: Normocephalic, atraumatic. Pupils equal, round and reactive to light and accommodation. Extraocular muscles are intact. Anicteric sclera. Moist mucous membranes. Neck: No JVD. No bruit. Cardiovascular: irregularly irregular, unable to appreciate murmur, rub or gallop. Pulmonary: Clear to auscultation bilaterally. No rales, rhonchi, or wheezing. Abdomen: Bowel sounds x 4, soft. No rebound, guarding or tenderness. No organomegaly. Extremities: No clubbing, cyanosis or edema. +2 pedal pulses bilaterally. Skin: Warm and dry. Results & Data Vital Signs (Past 12 Hours) Vital Signs Temp Pulse Pulse Resp BP Pulse Ox 08/22/19 08:20 74 08/22/19 06:58 36.5 C 76 20 132/85 98 08/22/19 03:49 36.5 C 64 22 129/76 96 (1) Chest pain Chest pain type: unspecified Qualified Code(s): R07.9 - Chest pain, unspecified (2) CAD (coronary artery disease) Coronary Disease-Associated Artery/Lesion type: [place] artery [place] vs. transplanted heart: [place] heart Associated angina: angina presence unspecified Qualified Code(s): I25.10 - Atherosclerotic heart disease of [place] coronary artery without angina pectoris
[2019-08-22] MEDS ORDERED: DAPTOmycin 650 MG in SYRINGE 0 ML IV SCH (19:00)
--- NOTE | 2019-08-22 21:23 | Hospitalist Progress Note ---
Date of Service August 22, 2019 Assessment & Plan (1) Staphylococcus aureus bacteremia: Blood cultures drawn on 08/18. Presently bottles positive up to 08/21. MRSA PCR positive. Unclear source (possibly pneumonia?). - Was on vancomycin, switched to daptomycin on 08/20 -currently renal dose. - Repeat blood cultures remain positive. Ordered additional repeat cultures on 08/22 May need to repeat on 08/23 - Chest CT for septic emboli: neg - TTE completed: no vegetations (2) Pulmonary edema: CXR on 08/18 showed cardiomegaly without overt pulmonary edema. Does show left basilar opacities with procalcitonin high; however, this may be due to her bacteremia. - Continue levofloxacin - Chest CT -> Concern for septic emboli possibly. - DuoNebs every 4 hours as needed for shortness of breath. (3) Chest pain: Appears to be at least partially non-cardiac as she does have tenderness to palpation and her prior admission was for similar issue. Patient had recent stress test which was negative for ischemia and symptoms prior not relieved by prior coronary intervention. - Continue carvedilol & reduced isosorbide 120mg. - Continue all other patient medication including oral diltiazem. (4) CKD (chronic kidney disease) stage 3, GFR 30-59 ml/min: Baseline Cr ~1.4. -remains elevtaed - Holding diuretic at this time. - Avoid nephrotoxic agents. - Continue monitoring creatinine (5) T2DM (type 2 diabetes mellitus): A1c was a 6.9% in 07/2019. - ADA diet - Continue Januvia - Sliding scale insulin coverage (6) PAF (paroxysmal atrial fibrillation): In A.fib at this time. Previous anticoagulation with warfarin resulted in a GI bleed with shock. She is known to have extensive diverticulosis. No anticoagulation has been used since that time. - Rates in the 110's initially; now in the 60s. - Continue Cardizem CD 180mg daily. (7) Chronic respiratory failure with hypoxia, on home O2 therapy: Reporting continued shortness of breath, though on her home O2. - Continue Albuterol nebs prn - Continue oxygen and Symbicort - Supplemental oxygen as needed to keep oxygenation above 92%. (8) CAD (coronary artery disease): In 07/2019, her nuclear stress test neg for ischemia. - Continue aspirin, plavix, coreg, and statin. - As above for chest pain (9) DVT prophylaxis: (10) Demand ischemia: mild trop bump. has returned to normal, may be atrrubuted to RVR and CKD. Subjective Patient reports feeling well. She has no new complaints. Review of Systems Review of Systems: All systems reviewed & are unremarkable except as noted in HPI & below Physical Exam Physical Exam: Constitutional: WD/WN, vitals as above Eyes: EOM intact bilaterally; no conjunctival abnormality ENMT: external ear and nose normal, oropharynx normal Neck: trachea midline, no thyromegaly normal visual inspection Respiratory: normal respiratory effort, lungs clear to auscultation no respiratory distress Cardiovascular: RRR, no murmur, no edema Gastrointestinal (Abdomen): Inspection/Auscultation: abdomen normal to inspection; abdomen not distended Musculoskeletal: no cyanosis or clubbing, extremities motor strength 5/5 Skin: no rashes, warm and dry Neurologic: moves all extremities and awake Psychiatric: Orientation: alert, oriented to person and cooperative Results & Data Vital Signs (Past 12 Hours) Vital Signs Temp Pulse Pulse Resp BP BP Pulse Ox 08/22/19 21:00 18 97 08/22/19 18:55 37.0 C 69 18 111/57 L 97 08/22/19 15:06 36.9 C 42 L 18 126/75 97 08/22/19 14:25 64 PG Care Time/CCT Total # of Minutes Spent Total Time Spent with Patient: Total time spent is greater than 50% in coordination of care (as documented) at patient's floor/unit and/or counseling patient: (1) T2DM (type 2 diabetes mellitus) Diabetes mellitus chcf insulin use: without chcf use (2) CAD (coronary artery disease) Associated angina: angina presence unspecified Coronary Disease-Associated Artery/Lesion type: [place] artery [place] vs. transplanted heart: [place] heart Qualified Code(s): I25.10 - Atherosclerotic heart disease of [place] coronary artery without angina pectoris (3) Chest pain Chest pain type: unspecified Qualified Code(s): R07.9 - Chest pain, unspecified
[2019-08-22] MEDS: FERROUS SULFATE 325 MG TAB PO SCH (23:53)
[2019-08-23] MEDS: INSULIN ASPART 100 UNITS/ML 3 ML PEN SC SCH ×4 (07:44→21:27)
[2019-08-23 08:02] LABS: Albumin Level 1.7 gm/dl (3.4-5.0); BUN Creatinine Ratio 21.3 (10-20); Calcium 8.4 mg/dl (8.5-10.1); Creatinine Clr Calc Pharmacy 36.7 ml/min; Est GFR (African American) 36.3; Est GFR (Non-African American) 31.3; Potassium 4.5 mmol/L (3.5-5.1)
[2019-08-23 08:35] LABS: BUN Creatinine Ratio 20.5 (10-20); Calcium 8.1 mg/dl (8.5-10.1); Creatinine Clr Calc Pharmacy 35.8 ml/min; Est GFR (African American) 35.2; Est GFR (Non-African American) 30.3; Potassium 4.6 mmol/L (3.5-5.1)
[2019-08-23 08:38] LABS: Hematocrit (blood only) 24.4 % (37-47); Hemoglobin 8.2 g/dL (12.0-16.0); Mean Corpuscular Hemoglobin 32.7 pg (25-34); Mean Corpuscular Hgb Conc 33.6 g/dL (32-36); Mean Corpuscular Volume 97.2 fL (80-100); Mean Platelet Volume 12.6 fL (7.4-10.4); Nucleated RBC # (auto) 0.02 K/uL (0-0); Nucleated RBC % (auto) 0.3 %; Platelet Count 80 K/uL (130-400); RDW Coefficient of Variation 15.6 % (11.5-14.5); RDW Standard Deviation 55.6 fL (36.4-46.3); Red Blood Count 2.51 M/uL (4.2-5.4)
[2019-08-23] MEDS: FLUTICASONE/SALMETEROL (ADVAIR) 500/50 INH 14 PUFF INH SCH ×2 (09:11→21:30)
[2019-08-23] MEDS: carvediloL 25 MG TAB PO SCH ×2 (09:11→21:34)
[2019-08-23] MEDS: PANTOprazole 40 MG TAB PO SCH (09:12)
[2019-08-23] MEDS: FAMOTIDINE 40 MG TABLET PO SCH (09:12)
[2019-08-23] MEDS: ESCITALOPRAM OXALATE 10 MG TAB PO SCH (09:12)
[2019-08-23] MEDS: CYANOCOBALAMIN 500 MCG TABLET (VITAMIN B-12) PO SCH (09:13)
[2019-08-23] MEDS: MULTIVITAMIN TAB PO SCH (09:13)
[2019-08-23] MEDS: dilTIAZem HCL 180 MG CAPCR PO SCH (09:14)
[2019-08-23] MEDS: CLOPIDOGREL BISULFATE 75 MG TAB PO SCH (09:14)
[2019-08-23] MEDS: ISOSORBIDE MONO EXTENDED REL 60 MG TABCR PO SCH (09:14)
[2019-08-23] MEDS: MAGNESIUM OXIDE 400 MG TAB PO SCH (09:14)
[2019-08-23] MEDS: ASPIRIN 81 MG ECTAB PO SCH (09:15)
[2019-08-23] MEDS: SITAGLIPTIN PHOSPHATE 100 MG TAB PO SCH (09:15)
[2019-08-23] MEDS: DICLOFENAC SOD 1% GEL 100 GM TUBE EXT SCH ×4 (09:15→21:29)
--- NOTE | 2019-08-23 11:33 | Infectious Disease Progress Nt ---
Date of Service August 23, 2019 Assessment & Plan (1) Gram positive sepsis: will need prolonged course of IV abx, blood cultures remain + for several days on dapto. not clear for line until cultures negative. would consider mri spine to look for verterbral osteo and would consider SOLOMON as well with AVR. will continue dapto and follow repeat cultures from 08/22. (2) H/O aortic valve replacement with tissue graft: Subjective pt remains with + blood cultures for MRSA 08/18, ,, 08/20, 08/21. 08/22 cultures pending. remains on dapto, tolerating well. tmax 37.3 this am. creat improved to 1.5. TTE negative for veg, cardio following. wbc 7. has not cleared blood cultures to date. Results & Data Vital Signs (Past 12 Hours) Vital Signs Temp Pulse Pulse Pulse Resp BP BP 08/23/19 07:30 87 08/23/19 07:28 37.7 C H 81 24 130/79 08/23/19 04:54 37.2 C 84 24 129/74 08/23/19 03:30 71 30 H Pulse Ox 08/23/19 07:30 08/23/19 07:28 93 08/23/19 04:54 93 08/23/19 03:30 96 Laboratory Results Microbiology 08/20/19 19:32 Blood Aerobic Blood Culture - Preliminary Staphylococcus species 08/20/19 19:32 Blood Anaerobic Blood Culture - Preliminary No growth in Anaerobic bottle after 48 hours. 08/20/19 19:19 Blood Aerobic Blood Culture - Preliminary Staphylococcus species 08/20/19 19:19 Blood Anaerobic Blood Culture - Preliminary No growth in Anaerobic bottle after 48 hours. 08/21/19 16:53 Blood Aerobic Blood Culture - Preliminary Gram positive cocci clusters 08/21/19 16:53 Blood Anaerobic Blood Culture - Preliminary No growth in Anaerobic bottle after 24 hours. 08/21/19 16:46 Blood Aerobic Blood Culture - Preliminary Gram positive cocci clusters 08/21/19 16:46 Blood Anaerobic Blood Culture - Preliminary No growth in Anaerobic bottle after 24 hours. 08/19/19 16:17 Blood Aerobic Blood Culture - Preliminary Staph aureus MRSA 08/19/19 16:17 Blood Anaerobic Blood Culture - Preliminary No growth in Anaerobic bottle after 48 hours. 08/19/19 16:23 Blood Aerobic Blood Culture - Preliminary Staph aureus MRSA 08/19/19 16:23 Blood Anaerobic Blood Culture - Preliminary No growth in Anaerobic bottle after 48 hours. 08/18/19 11:51 Blood Aerobic Blood Culture - Final Staph aureus MRSA 08/18/19 11:51 Blood Anaerobic Blood Culture - Final Staph aureus MRSA 08/18/19 11:36 Blood Aerobic Blood Culture - Final Staph aureus MRSA 08/18/19 11:36 Blood Anaerobic Blood Culture - Final Staph aureus MRSA PG Care Time/CCT Total # of Minutes Spent Total Time Spent with Patient: Total time spent is greater than 50% in coordination of care (as documented) at patient's floor/unit and/or counseling patient:
[2019-08-23] MEDS: HEPARIN SOD 5,000 UNIT/0.5 ML VIAL SQ SCH ×2 (15:29→21:28)
[2019-08-23] MEDS: DAPTOmycin 650 MG in SYRINGE 0 ML IV SCH (15:38)
--- NOTE | 2019-08-23 16:15 | Hospitalist Progress Note ---
Date of Service August 23, 2019 Assessment & Plan (1) Staphylococcus aureus bacteremia: original Blood cultures drawn on 08/18. MRSA PCR positive. Unclear source most recent cultures on 08/22 growing gram positive cocci despite Daptomycin will repeat cultures tomorrow AM WBC normal, no fever no other clear symptoms ID recommends MRI spine to look for osteomyelitis, SOLOMON to look for vegetations will order the MRI spine SOLOMON will likely need to wait until after holiday, would not change treatment at this time - Chest CT for septic emboli: neg - TTE completed: no vegetations (2) Pulmonary edema: CXR on 08/18 showed cardiomegaly without overt pulmonary edema. Does show left basilar opacities with procalcitonin high; however, this may be due to her bacteremia. originally on Vancomycin but persistently positive cultures, switched to Dapto which won't have lung penetration however, doubt that pneumonia is true source as it should have cleared - Chest CT -> no septic emboli, did not show pneumonia (3) Chest pain: Appears to be at least partially non-cardiac as she does have tenderness to palpation and her prior admission was for similar issue. Patient had recent stress test which was negative for ischemia and symptoms prior not relieved by prior coronary intervention. - Continue carvedilol & reduced isosorbide 120mg. - Continue all other patient medication including oral diltiazem. (4) CKD (chronic kidney disease) stage 3, GFR 30-59 ml/min: Baseline Cr ~1.4. -remains minimally elevated at 1.59 - will resume diuretic today as Cr nearly at baseline - Avoid nephrotoxic agents. - Continue monitoring creatinine (5) T2DM (type 2 diabetes mellitus): A1c was a 6.9% in 07/2019. - ADA diet monitor for hypoglycemia - Sliding scale insulin coverage (6) PAF (paroxysmal atrial fibrillation): In A.fib at this time. Previous anticoagulation with warfarin resulted in a GI bleed with shock. She is known to have extensive diverticulosis. No anticoagulation has been used since that time. - Rates in the 110's initially; now in the 60-80s, irregular - Continue Cardizem CD 180mg daily. (7) Chronic respiratory failure with hypoxia, on home O2 therapy: Reporting continued shortness of breath, though on her home O2. - Continue Albuterol nebs prn - Continue oxygen and Symbicort - Supplemental oxygen as needed to keep oxygenation above 92%. (8) CAD (coronary artery disease): In 07/2019, her nuclear stress test neg for ischemia. - Continue aspirin, plavix, coreg, and statin. - As above for chest pain (9) DVT prophylaxis: (10) Demand ischemia: mild trop bump. has returned to normal, may be atrrubuted to RVR and CKD. Subjective patient laying in bed, no distress, says she feels fine, no specific complaints admits that she has not moved her bowels in several days, typical for her to go a few days between BM no abdominal pain, no nausea denies chest pain, dyspnea, fever/chills reviewed labs, WBC normal at 7k, Cr at baseline at 1.59 unfortunately her most recent blood cultures from 08/22 came back with growth, gram positive cocci discussed with Dr. Hicks, she recommends MRI spine to look for osteomyelitis and SOLOMON to look for endocarditis no plans for discharge while cultures still positive on Daptomycin Review of Systems Review of Systems: All systems reviewed & are unremarkable except as noted in HPI & below Constitutional: + fatigue and + weakness; no fever and no sweats Respiratory: no cough and no dyspnea Cardiovascular: no chest pain and no edema Gastrointestinal: + constipation; no abdominal pain, no nausea, no vomiting and no diarrhea/loose stools Physical Exam Constitutional: WD/WN, vitals as above Eyes: PERRL, conjunctivae normal, anicteric sclerae ENMT: external ear and nose normal, oropharynx normal Neck: trachea midline, no thyromegaly Respiratory: normal respiratory effort, lungs clear to auscultation Cardiovascular: Rate/Rhythm: regular rate and + irregularly irregular Heart Sounds: normal S1 and normal S2; no murmur Vessels: no JVD Extremities: normal capillary refill; no edema Gastrointestinal (Abdomen): normal bowel sounds, soft, nontender, no hepatosplenomegaly Musculoskeletal: no cyanosis or clubbing, extremities motor strength 5/5 Skin: no rashes, warm and dry Neurologic: patellar DTR's 2+ bilat, sensation intact and PERRL, EOMI, ac commodation nl, no face palsy, no dysarthria Psychiatric: A+Ox3, euthymic affect Lymphatic: no cervical or axillary lymphadenopathy Results & Data Vital Signs (Past 12 Hours) Vital Signs Temp Pulse Pulse Pulse Pulse Pulse Resp 08/23/19 15:34 36.5 C 69 18 08/23/19 11:30 37 C 72 18 08/23/19 07:30 87 08/23/19 07:28 37.7 C H 81 24 08/23/19 04:54 37.2 C 84 24 BP BP Pulse Ox 08/23/19 15:34 121/79 97 08/23/19 11:30 134/78 99 08/23/19 07:30 08/23/19 07:28 130/79 93 08/23/19 04:54 129/74 93 Laboratory Results Laboratory Results - last 24 hr 08/22/19 08/22/19 08/23/19 16:14 20:23 07:10 WBC RBC Hgb Hct MCV MCH MCHC RDW Std Deviation RDW Coeff of Albert Plt Count MPV Absolute Nucleated RBC Nucleated RBC % (auto) Sodium 138 Potassium 4.5 Chloride 109 H Carbon Dioxide 23 Anion Gap 6.0 BUN 33 H Creatinine 1.55 H Est Cr Clr Drug Dosing 36.7 Est GFR ( Amer) 36.3 Est GFR (Non-Af Amer) 31.3 BUN/Creatinine Ratio 21.3 H Glucose 107 H POC Glucose 94 119 H Calcium 8.4 L Phosphorus 3.0 Albumin 1.7 L 08/23/19 08/23/19 08/23/19 07:11 07:11 07:26 WBC 7.40 RBC 2.51 L Hgb 8.2 L Hct 24.4 L MCV 97.2 MCH 32.7 MCHC 33.6 RDW Std Deviation 55.6 H RDW Coeff of Albert 15.6 H Plt Count 80 L MPV 12.6 H Absolute Nucleated RBC 0.02 H Nucleated RBC % (auto) 0.3 Sodium 138 Potassium 4.6 Chloride 109 H Carbon Dioxide 24 Anion Gap 5.0 BUN 33 H Creatinine 1.59 H Est Cr Clr Drug Dosing 35.8 Est GFR ( Amer) 35.2 Est GFR (Non-Af Amer) 30.3 BUN/Creatinine Ratio 20.5 H Glucose 108 H POC Glucose 115 H Calcium 8.1 L Phosphorus Albumin 08/23/19 11:33 WBC RBC Hgb Hct MCV MCH MCHC RDW Std Deviation RDW Coeff of Albert Plt Count MPV Absolute Nucleated RBC Nucleated RBC % (auto) Sodium Potassium Chloride Carbon Dioxide Anion Gap BUN Creatinine Est Cr Clr Drug Dosing Est GFR ( Amer) Est GFR (Non-Af Amer) BUN/Creatinine Ratio Glucose POC Glucose 110 H Calcium Phosphorus Albumin Microbiology 08/22/19 13:11 Blood Aerobic Blood Culture - Preliminary Gram positive cocci clusters 08/22/19 13:11 Blood Anaerobic Blood Culture - Preliminary No growth in Anaerobic bottle after 24 hours. 08/22/19 13:19 Blood Aerobic Blood Culture - Preliminary No growth in Aerobic bottle after 24 hours. 08/22/19 13:19 Blood Anaerobic Blood Culture - Preliminary No growth in Anaerobic bottle after 24 hours. 08/21/19 16:53 Blood Aerobic Blood Culture - Preliminary Staphylococcus species 08/21/19 16:53 Blood Anaerobic Blood Culture - Preliminary No growth in Anaerobic bottle after 48 hours. 08/21/19 16:46 Blood Aerobic Blood Culture - Preliminary Staphylococcus species 08/21/19 16:46 Blood Anaerobic Blood Culture - Preliminary No growth in Anaerobic bottle after 48 hours. 08/20/19 19:32 Blood Aerobic Blood Culture - Preliminary Staphylococcus species 08/20/19 19:32 Blood Anaerobic Blood Culture - Preliminary No growth in Anaerobic bottle after 48 hours. 08/20/19 19:19 Blood Aerobic Blood Culture - Preliminary Staphylococcus species 08/20/19 19:19 Blood Anaerobic Blood Culture - Preliminary No growth in Anaerobic bottle after 48 hours. 08/19/19 16:17 Blood Aerobic Blood Culture - Preliminary Staph aureus MRSA 08/19/19 16:17 Blood Anaerobic Blood Culture - Preliminary No growth in Anaerobic bottle after 48 hours. 08/19/19 16:23 Blood Aerobic Blood Culture - Preliminary Staph aureus MRSA 08/19/19 16:23 Blood Anaerobic Blood Culture - Preliminary No growth in Anaerobic bottle after 48 hours. 08/18/19 11:51 Blood Aerobic Blood Culture - Final Staph aureus MRSA 08/18/19 11:51 Blood Anaerobic Blood Culture - Final Staph aureus MRSA 08/18/19 11:36 Blood Aerobic Blood Culture - Final Staph aureus MRSA 08/18/19 11:36 Blood Anaerobic Blood Culture - Final Staph aureus MRSA Medications Administered Current Inpatient Medications Acetaminophen (Tylenol) 650 mg PO Q4H PRN PRN Reason: mild pain or fever Stop: 09/15/19 16:07 Last Admin: 08/19/19 03:58 Dose: 650 mg Documented by: Albuterol (Ventolin 0.083% 2.5mg/3ml) 2.5 mg NEB Q4H PRN PRN Reason: Shortness Of Breath Or Wheezing Stop: 09/15/19 16:07 Last Admin: 08/17/19 15:35 Dose: 2.5 mg Documented by: Albuterol (Duoneb) 3 ml NEB Q4R PRN PRN Reason: wheezing and SOB Stop: 09/17/19 22:59 Aspirin (Ecotrin Ectab) 81 mg PO DAILY [facility] Stop: 09/16/19 08:59 Last Admin: 08/23/19 09:15 Dose: 81 mg Documented by: Carvedilol (Coreg) 37.5 mg PO BID [facility] Stop: 09/16/19 20:59 Last Admin: 08/23/19 09:11 Dose: 37.5 mg Documented by: Clopidogrel Bisulfate (Plavix) 75 mg PO DAILY [facility] Stop: 09/16/19 08:59 Last Admin: 08/23/19 09:14 Dose: 75 mg Documented by: Cyanocobalamin (Vitamin B-12) 500 mcg PO DAILY [facility] Stop: 09/16/19 08:59 Last Admin: 08/23/19 09:13 Dose: 500 mcg Documented by: Dextrose (Dextrose 50%) 25 - 50 ml IV UD PRN; Protocol PRN Reason: Hypoglycemia Protocol Stop: 09/15/19 16:07 Diclofenac Sodium (Voltaren 1% Top) 4 gm EXT QID [facility] Stop: 09/15/19 16:59 Last Admin: 08/23/19 14:32 Dose: Not Given Documented by: Diltiazem HCl (Cardizem Cd) 180 mg PO DAILY [facility] Stop: 09/16/19 08:59 Last Admin: 08/23/19 09:14 Dose: 180 mg Documented by: Escitalopram Oxalate (Lexapro Tab) 5 mg PO DAILY [facility] Stop: 09/16/19 08:59 Last Admin: 08/23/19 09:12 Dose: 5 mg Documented by: Famotidine (Pepcid) 40 mg PO QAM [facility] Stop: 09/16/19 08:59 Last Admin: 08/23/19 09:12 Dose: 40 mg Documented by: Ferrous Sulfate (Feosol) 325 mg PO HS [facility] Stop: 09/15/19 20:59 Last Admin: 08/22/19 23:53 Dose: 325 mg Documented by: Glucagon (Glucagen) 1 mg SQ UD PRN; Protocol PRN Reason: Hypoglycemia Protocol Stop: 09/15/19 16:07 Glucose (Dex4 Glucose) 4 - 8 tabs PO UD PRN; Protocol PRN Reason: Hypoglycemia Protocol Stop: 09/15/19 16:07 Glucose (Glucose 40%) 15 - 30 gm PO UD PRN; Protocol PRN Reason: Hypoglycemia Protocol Stop: 09/15/19 16:07 Heparin Sodium (Porcine) (Heparin Sodium (Porcine)) 5,000 units SQ Q8 [facility] Stop: 09/15/19 21:59 Last Admin: 08/23/19 15:29 Dose: 5,000 units Documented by: Daptomycin 650 mg/ Syringe 13 mls @ 6.5 mls/min IV Q24H [facility]; Protocol Stop: 09/05/19 13:59 Last Admin: 08/23/19 15:38 Dose: 6.5 mls/min Documented by: Insulin Aspart (Novolog Flexpen) 0 units SC ACHS [facility] Stop: 09/15/19 16:29 Last Admin: 08/23/19 11:53 Dose: 4 units Documented by: Isosorbide Mononitrate (Imdur Extended Rel) 120 mg PO DAILY [facility] Stop: 09/17/19 08:59 Last Admin: 08/23/19 09:14 Dose: 120 mg Documented by: Magnesium Oxide (Mag-Ox) 400 mg PO QAM [facility] Stop: 09/16/19 08:59 Last Admin: 08/23/19 09:14 Dose: 400 mg Documented by: Miconazole Nitrate (Desenex) 1 appln EXT PRN PRN PRN Reason: Affected Skin Folds Stop: 09/17/19 14:33 Last Admin: 08/20/19 20:08 Dose: 1 appln Documented by: Miscellaneous (Carbohydrates For Hypoglycemia) 15 - 30 gm PO UD PRN PRN Reason: Hypoglycemia Protocol Stop: 09/15/19 16:07 Miscellaneous Information (Consult) 1 ea N/A UD PRN PRN Reason: Consult Stop: 09/19/19 19:11 Multivitamins (Multivitamin Tab) 1 tab PO QAM [facility] Stop: 09/16/19 08:59 Last Admin: 08/23/19 09:13 Dose: 1 tab Documented by: Nitroglycerin (Nitrostat) 0.4 mg SL PRN PRN PRN Reason: Chest Pain Stop: 09/15/19 16:07 Last Admin: 08/18/19 10:15 Dose: 0.4 mg Documented by: Ondansetron HCl (Zofran) 4 mg IV Q6H PRN PRN Reason: nausea or vomiting Stop: 09/15/19 16:07 Last Admin: 08/19/19 04:08 Dose: 4 mg Documented by: Pantoprazole Sodium (Protonix) 40 mg PO DAILY [facility] Stop: 09/16/19 08:59 Last Admin: 08/23/19 09:12 Dose: 40 mg Documented by: Potassium Chloride (Klor-Con M20) 20 meq PO DAILY [facility] Stop: 09/16/19 08:59 Last Admin: 08/22/19 09:08 Dose: 20 meq Documented by: Pravastatin Sodium (Pravachol) 80 mg PO QAM [facility] Stop: 09/16/19 08:59 Last Admin: 08/20/19 08:23 Dose: 80 mg Documented by: Fluticasone/Salmeterol (Advair Diskus 500/50) 1 puffs INH BID [facility] Stop: 09/16/19 20:59 Last Admin: 08/23/19 09:11 Dose: 1 puffs Documented by: Torsemide (Demadex) 20 mg PO DAILY [facility] Stop: 09/16/19 08:59 Last Admin: 08/17/19 08:50 Dose: 20 mg Documented by: PG Care Time/CCT Total # of Minutes Spent Total Time Spent with Patient: Total time spent is greater than 50% in coordination of care (as documented) at patient's floor/unit and/or counseling patient: (1) T2DM (type 2 diabetes mellitus) Diabetes mellitus senior living insulin use: without senior living use (2) CAD (coronary artery disease) Associated angina: angina presence unspecified Coronary Disease-Associated Artery/Lesion type: [place] artery [place] vs. transplanted heart: [place] heart Qualified Code(s): I25.10 - Atherosclerotic heart disease of [place] coronary artery without angina pectoris (3) Chest pain Chest pain type: unspecified Qualified Code(s): R07.9 - Chest pain, unspecified
[2019-08-23] MEDS ORDERED: POLYETHYLENE (MIRALAX) 17 GM PACK PO PRN (17:08)
[2019-08-23] MEDS: FERROUS SULFATE 325 MG TAB PO SCH (21:31)
[2019-08-24 04:44] LABS: BUN Creatinine Ratio 21.5 (10-20); Calcium 8.2 mg/dl (8.5-10.1); Creatinine Clr Calc Pharmacy 38.4 ml/min; Est GFR (African American) 38.4; Est GFR (Non-African American) 33.1; Potassium 4.4 mmol/L (3.5-5.1)
[2019-08-24 04:50] LABS: Hemoglobin 8.3 g/dL (12.0-16.0); Mean Corpuscular Hemoglobin 32.2 pg (25-34); Mean Corpuscular Hgb Conc 33.2 g/dL (32-36); Mean Corpuscular Volume 96.9 fL (80-100); Mean Platelet Volume 11.9 fL (7.4-10.4); Platelet Count 98 K/uL (130-400); Platelet Estimate Decreased (Normal); RDW Coefficient of Variation 15.6 % (11.5-14.5); RDW Standard Deviation 55.3 fL (36.4-46.3); Red Blood Count 2.58 M/uL (4.2-5.4); White Blood Count 8.37 K/uL (4.8-10.8)
[2019-08-24] MEDS ORDERED: GADOBUTROL 65ML VIAL IV PRN (06:10)
[2019-08-24] MEDS: HEPARIN SOD 5,000 UNIT/0.5 ML VIAL SQ SCH ×3 (06:46→21:37)
--- NOTE | 2019-08-24 07:16 | Magnetic Resonance Report ---
MR thoracic spine wo/w con CLINICAL HISTORY: 79 years-old Female presenting with persistent Staph blood cultures, unclear source . TECHNIQUE: Multisequence, multiplanar MR imaging of the thoracic spine was performed before and after the administration of intravenous contrast. IV contrast: 11.1 mL of Gadavist. COMPARISON: Correlation made to CT chest from 08/19/2019. FINDINGS: Localizer images: Diverticulosis of the sigmoid colon. Atherosclerosis with irregularity of the abdom inal aorta, which measures up to 3.6 cm in diameter proximal to the bifurcation. Normal thoracic kyphosis. Vertebral bodies maintain normal height, alignment, and bone marrow signal intensity. Intervertebral discs preserved. No spinal canal narrowing. Facet arthropathy noted in the mid to lower thoracic spine resulting in osseous neural foraminal narrowing on the right at T8-9 and T9-10 on left at T7-8 and T8-9. Trace fluid in the facet joints from T7-8 through T10-11 without evid ence of associated surrounding edema or bony edema. Thoracic spinal cord normal in morphology and signal intensity. No abnormal enhancement. No evidence of an epidural collection or mass. Flow voids within the vasculature preserved. Ectasia of the descen ding thoracic aorta measuring slightly more than 3 cm in diameter. Paraspinal muscle atrophy likely a ge-related. No paraspinal edema. Extensive dependent consolidation likely passive atelectasis in the setting of the small pleural effu sions. IMPRESSION: 1. No evidence of discitis osteomyelitis or other evidence of infection the current exam. 2. Mild degenerative changes with facet arthropathy in the mid to lower thoracic spine with multilev el neural foraminal narrowing as above. 3. No spinal canal narrowing. 4. Intrarenal abdominal aortic aneurysm measuring 3.6 cm. 5. Small bilateral pleural effusions and passive atelectasis. ACT 112: Negative or not required by law. Electronically signed by: Marcos Alvarez M.D. 08/24/2019 7:14 AM
--- NOTE | 2019-08-24 07:50 | Magnetic Resonance Report ---
MRI OF THE LUMBAR SPINE WITH AND WITHOUT CONTRAST CLINICAL HISTORY: persistent positive Staph blood cultures COMPARISON STUDY: Lumbar spine CT December 30, 2007. Lumbar spine radiographs January 05, 2015. TECHNIQUE: Utilizing a 1.5 Annalisa magnet and dedicated coil, multiplanar, multiecho imaging of the maurilio ar spine was performed before and after uneventful IV administration of 11.1 mL of Gadavist. FINDINGS: For purposes of numbering on this exam, the L5-S1 disc space is assigned to axial image 28 of 31. Not e is made of a 4 mm anterolisthesis of L4 and L5 and 5 mm anterolisthesis of L5 on S1. There is no fr acture. There is no marrow edema. Note is made of increased T2 signal within the L5-S1 disc. There is no associated enhancement. Adjacent end plates are intact. There may be trace prevertebral edema. No significant paravertebral infiltration is noted. There is no associated fluid collection to suggest an abscess. The conus terminates at the mid L1 level. Mild aneurysmal dilatation of the abdominal ao rta is suboptimally assessed on this exam but likely similar to prior abdominal CT of December 02, 2017. Severe osteoarthritis of bilateral sacroiliac joints is noted. L1-2: Note is made of a central/left paracentral disc protrusion which results in mild narrowing of t he central canal and left lateral recess. There is facet arthrosis. There is mild narrowing of the le ft neural foramen. L2-3: There is severe facet arthrosis. There is ligamentous hypertrophy. Central canal and neural for amen are patent. L3-4: There is severe facet arthrosis. There is ligamentous hypertrophy with mild disc bulge. There i s moderate narrowing of the central canal. Mild bilateral neural foraminal narrowing is noted. L4-5: Severe facet arthrosis is noted. There is ligamentous hypertrophy with anterolisthesis and mild disc bulge. There is severe narrowing of the central canal and lateral recesses with mild narrowing of both neural foramen. Patent central canal measures 4 mm in AP diameter. L5-S1: There is anterolisthesis. Minimal disc bulge is noted. There is mild narrowing of the central canal and lateral recesses. The neural foramen are patent. IMPRESSION: 1. Increased fluid signal within the L5-S1 disc with trace prevertebral fluid. No significant paraver tebral infiltration. Intact endplates. No adjacent fluid collection. These findings are likely degene rative. However, early discitis could appear similar. If persistent symptoms, a short-term follow-up MRI is recommended. 2. Severe multilevel facet arthrosis with mild multilevel degenerative disc disease. Severe central c anal stenosis at L4-L5, as described above. ACT 112: Negative or not required by law. Electronically signed by: Jefferson Landaverde M.D. 08/24/2019 7:49 AM
[2019-08-24] MEDS: MULTIVITAMIN TAB PO SCH (08:46)
[2019-08-24] MEDS: CLOPIDOGREL BISULFATE 75 MG TAB PO SCH (08:46)
[2019-08-24] MEDS: carvediloL 25 MG TAB PO SCH ×2 (08:46→21:37)
[2019-08-24] MEDS: ESCITALOPRAM OXALATE 10 MG TAB PO SCH (08:46)
[2019-08-24] MEDS: FAMOTIDINE 40 MG TABLET PO SCH (08:46)
[2019-08-24] MEDS: ISOSORBIDE MONO EXTENDED REL 60 MG TABCR PO SCH (08:46)
[2019-08-24] MEDS: dilTIAZem HCL 180 MG CAPCR PO SCH (08:47)
[2019-08-24] MEDS: TORSEMIDE 20 MG TAB PO SCH (08:47)
[2019-08-24] MEDS: POTASSIUM CHLORIDE 20 MEQ TABCR PO SCH (08:47)
[2019-08-24] MEDS: ASPIRIN 81 MG ECTAB PO SCH (08:47)
[2019-08-24] MEDS: CYANOCOBALAMIN 500 MCG TABLET (VITAMIN B-12) PO SCH (08:47)
[2019-08-24] MEDS: PANTOprazole 40 MG TAB PO SCH (08:47)
[2019-08-24] MEDS: PRAVASTATIN SOD 40 MG TAB PO SCH (08:47)
[2019-08-24] MEDS: MAGNESIUM OXIDE 400 MG TAB PO SCH (08:47)
[2019-08-24] MEDS: DICLOFENAC SOD 1% GEL 100 GM TUBE EXT SCH ×4 (08:48→21:42)
[2019-08-24] MEDS: FLUTICASONE/SALMETEROL (ADVAIR) 500/50 INH 14 PUFF INH SCH ×2 (08:48→21:36)
[2019-08-24] MEDS: INSULIN ASPART 100 UNITS/ML 3 ML PEN SC SCH ×4 (08:50→20:39)
--- NOTE | 2019-08-24 09:50 | Infectious Disease Progress Nt ---
Date of Service August 24, 2019 Assessment & Plan (1) Gram positive sepsis: will need prolonged course of IV abx, blood cultures remain + for several days on dapto. not clear for line until cultures negative. MRI spine concerning for discitis, this may be reason for persistent + cultures. will repeat today. would consider SOLOMON as well with AVR. will continue dapto. I will be away until 09/06/2019, [facility] as she has not cleared cultures and now has findings concerning for discitis. (2) H/O aortic valve replacement with tissue graft: Subjective Pt remains with positive blood cultures, 08/22 now + as well. she states she is feeling better. MRI l spine and t spine doen, L5/S1 fluid ? discitis noted. No SOLOMON until after holiday, she remains on dapto and is tolerating well. afebrile. wbc 8, creat 1.4 . She denies back pain, no cp, sob, cough. she is eating breakfast on my exam. no abd pain no n/v/d. Review of Systems Review of Systems: All systems reviewed & are unremarkable except as noted in HPI & below Physical Exam Constitutional: WD/WN, vitals as above Eyes: PERRL, conjunctivae normal, anicteric sclerae ENMT: external ear and nose normal, oropharynx normal Neck: normal visual inspection Respiratory: normal respiratory effort, lungs clear to auscultation Cardiovascular: Rate/Rhythm: regular rate and regular rhythm Gastrointestinal (Abdomen): normal bowel sounds, soft, nontender, no hepatosplenomegaly Musculoskeletal: no cyanosis or clubbing, extremities motor strength 5/5 Skin: no rashes, warm and dry Psychiatric: A+Ox3, euthymic affect Results & Data Vital Signs (Past 12 Hours) Vital Signs Temp Pulse Pulse Resp BP BP Pulse Ox 08/24/19 07:39 36.8 C 93 H 92 H 130/81 08/24/19 03:11 75 16 97 08/23/19 22:56 73 18 98 08/23/19 22:46 36.4 C L 81 18 134/72 99 Laboratory Results Microbiology 08/22/19 13:19 Blood Aerobic Blood Culture - Preliminary Staph aureus MRSA 08/22/19 13:19 Blood Anaerobic Blood Culture - Preliminary No growth in Anaerobic bottle after 24 hours. 08/22/19 13:11 Blood Aerobic Blood Culture - Preliminary Staph aureus MRSA 08/22/19 13:11 Blood Anaerobic Blood Culture - Preliminary No growth in Anaerobic bottle after 24 hours. 08/21/19 16:46 Blood Aerobic Blood Culture - Preliminary Staph aureus MRSA 08/21/19 16:46 Blood Anaerobic Blood Culture - Preliminary No growth in Anaerobic bottle after 48 hours. 08/21/19 16:53 Blood Aerobic Blood Culture - Preliminary Staph aureus MRSA 08/21/19 16:53 Blood Anaerobic Blood Culture - Preliminary No growth in Anaerobic bottle after 48 hours. 08/20/19 19:32 Blood Aerobic Blood Culture - Preliminary Staphylococcus aureus 08/20/19 19:32 Blood Anaerobic Blood Culture - Preliminary No growth in Anaerobic bottle after 48 hours. 08/20/19 19:19 Blood Aerobic Blood Culture - Preliminary Staph aureus MRSA 08/20/19 19:19 Blood Anaerobic Blood Culture - Preliminary No growth in Anaerobic bottle after 48 hours. 08/19/19 16:17 Blood Aerobic Blood Culture - Preliminary Staph aureus MRSA 08/19/19 16:17 Blood Anaerobic Blood Culture - Preliminary No growth in Anaerobic bottle after 48 hours. 08/19/19 16:23 Blood Aerobic Blood Culture - Preliminary Staph aureus MRSA 08/19/19 16:23 Blood Anaerobic Blood Culture - Preliminary No growth in Anaerobic bottle after 48 hours. 08/18/19 11:51 Blood Aerobic Blood Culture - Final Staph aureus MRSA 08/18/19 11:51 Blood Anaerobic Blood Culture - Final Staph aureus MRSA 08/18/19 11:36 Blood Aerobic Blood Culture - Final Staph aureus MRSA 08/18/19 11:36 Blood Anaerobic Blood Culture - Final Staph aureus MRSA PG Care Time/CCT Total # of Minutes Spent Total Time Spent with Patient: Total time spent is greater than 50% in coordination of care (as documented) at patient's floor/unit and/or counseling patient:
[2019-08-24] MEDS: ACETAMINOPHEN 325 MG TAB PO PRN (10:58)
[2019-08-24] MEDS: DAPTOmycin 650 MG in SYRINGE 0 ML IV SCH (12:52)
[2019-08-24] MEDS: FERROUS SULFATE 325 MG TAB PO SCH (21:57)
--- NOTE | 2019-08-24 23:47 | Hospitalist Progress Note ---
Date of Service August 24, 2019 Assessment & Plan (1) Staphylococcus aureus bacteremia: original Blood cultures drawn on 08/18. MRSA PCR positive. Unclear source most recent cultures on 08/22 growing gram positive cocci despite Daptomycin obtained new blood cultures on 08/24 WBC normal, no fever no other clear symptoms ID recommends MRI spine to look for osteomyelitis, SOLOMON to look for vegetations possible discitis, will consult ortho spine. SOLOMON will likely need to wait until after holiday, would not change treatment at this time - Chest CT for septic emboli: neg - TTE completed: no vegetations (2) Pulmonary edema: CXR on 08/18 showed cardiomegaly without overt pulmonary edema. Does show left basilar opacities with procalcitonin high; however, this may be due to her bacteremia. originally on Vancomycin but persistently positive cultures, switched to Dapto which won't have lung penetration however, doubt that pneumonia is true source as it should have cleared - Chest CT -> no septic emboli, did not show pneumonia (3) Chest pain: Appears to be at least partially non-cardiac as she does have tenderness to palpation and her prior admission was for similar issue. Patient had recent stress test which was negative for ischemia and symptoms prior not relieved by prior coronary intervention. - Continue carvedilol & reduced isosorbide 120mg. - Continue all other patient medication including oral diltiazem. (4) CKD (chronic kidney disease) stage 3, GFR 30-59 ml/min: Baseline Cr ~1.4. -remains minimally elevated at 1.59 - will resume diuretic today as Cr nearly at baseline - Avoid nephrotoxic agents. - Continue monitoring creatinine (5) T2DM (type 2 diabetes mellitus): A1c was a 6.9% in 07/2019. - ADA diet monitor for hypoglycemia - Sliding scale insulin coverage (6) PAF (paroxysmal atrial fibrillation): In A.fib at this time. Previous anticoagulation with warfarin resulted in a GI bleed with shock. She is known to have extensive diverticulosis. No anticoagulation has been used since that time. - Rates in the 110's initially; now in the 60-80s, irregular - Continue Cardizem CD 180mg daily. (7) Chronic respiratory failure with hypoxia, on home O2 therapy: Reporting continued shortness of breath, though on her home O2. - Continue Albuterol nebs prn - Continue oxygen and Symbicort - Supplemental oxygen as needed to keep oxygenation above 92%. (8) CAD (coronary artery disease): In 07/2019, her nuclear stress test neg for ischemia. - Continue aspirin, plavix, coreg, and statin. - As above for chest pain (9) DVT prophylaxis: (10) Demand ischemia: mild trop bump. has returned to normal, may be atrrubuted to RVR and CKD. Subjective Patient is a 79 yo female who reports no new symptoms. Review of Systems Review of Systems: All systems reviewed & are unremarkable except as noted in HPI & below Physical Exam Physical Exam: Constitutional: WD/WN, vitals as above Eyes: PERRL, conjunctivae normal, anicteric sclerae ENMT: external ear and nose normal, oropharynx normal Neck: trachea midline, no thyromegaly Respiratory: normal respiratory effort, lungs clear to auscultation Cardiovascular: Rate/Rhythm: regular rate and + irregularly irregular Heart Sounds: normal S1 and normal S2; no murmur Vessels: no JVD Extremities: normal capillary refill; no edema Gastrointestinal (Abdomen): normal bowel sounds, soft, nontender, no hepatosplenomegaly Musculoskeletal: no cyanosis or clubbing, extremities motor strength 5/5 Skin: no rashes, warm and dry Neurologic: patellar DTR's 2+ bilat, sensation intact and PERRL, EOMI, accommodation nl, no face palsy, no dysarthria Psychiatric: A+Ox3, euthymic affect Lymphatic: no cervical or axillary lymphadenopathy Results & Data Vital Signs (Past 12 Hours) Vital Signs Temp Pulse Pulse Resp BP BP Pulse Ox 08/24/19 23:42 36.4 C L 69 20 133/85 97 08/24/19 22:26 77 18 95 08/24/19 21:35 87 168/80 H 08/24/19 16:03 36.7 C 67 20 92/59 L 98 PG Care Time/CCT Total # of Minutes Spent Total Time Spent with Patient: Total time spent is greater than 50% in coordination of care (as documented) at patient's floor/unit and/or counseling patient: (1) T2DM (type 2 diabetes mellitus) Diabetes mellitus superintendent terminal insulin use: without prison use (2) CAD (coronary artery disease) Associated angina: angina presence unspecified Coronary Disease-Associated Artery/Lesion type: [place] artery [place] vs. transplanted heart: [place] heart Qualified Code(s): I25.10 - Atherosclerotic heart disease of [place] coronary artery without angina pectoris (3) Chest pain Chest pain type: unspecified Qualified Code(s): R07.9 - Chest pain, unspecified
[2019-08-25] MEDS: HEPARIN SOD 5,000 UNIT/0.5 ML VIAL SQ SCH ×3 (05:47→21:23)
[2019-08-25] MEDS: PANTOprazole 40 MG TAB PO SCH (07:36)
[2019-08-25] MEDS: PRAVASTATIN SOD 40 MG TAB PO SCH (07:36)
[2019-08-25] MEDS: POTASSIUM CHLORIDE 20 MEQ TABCR PO SCH (07:36)
[2019-08-25] MEDS: CLOPIDOGREL BISULFATE 75 MG TAB PO SCH (07:36)
[2019-08-25] MEDS: FAMOTIDINE 40 MG TABLET PO SCH (07:37)
[2019-08-25] MEDS: ESCITALOPRAM OXALATE 10 MG TAB PO SCH (07:37)
[2019-08-25] MEDS: MULTIVITAMIN TAB PO SCH (07:37)
[2019-08-25] MEDS: MAGNESIUM OXIDE 400 MG TAB PO SCH (07:37)
[2019-08-25] MEDS: TORSEMIDE 20 MG TAB PO SCH (07:38)
[2019-08-25] MEDS: ASPIRIN 81 MG ECTAB PO SCH (07:38)
[2019-08-25] MEDS: dilTIAZem HCL 180 MG CAPCR PO SCH (07:38)
[2019-08-25] MEDS: ISOSORBIDE MONO EXTENDED REL 60 MG TABCR PO SCH (07:38)
[2019-08-25] MEDS: CYANOCOBALAMIN 500 MCG TABLET (VITAMIN B-12) PO SCH (07:39)
[2019-08-25] MEDS: FLUTICASONE/SALMETEROL (ADVAIR) 500/50 INH 14 PUFF INH SCH ×2 (07:40→21:21)
[2019-08-25] MEDS: carvediloL 25 MG TAB PO SCH ×2 (07:40→21:22)
[2019-08-25] MEDS: DICLOFENAC SOD 1% GEL 100 GM TUBE EXT SCH ×4 (07:45→21:23)
[2019-08-25] MEDS: INSULIN ASPART 100 UNITS/ML 3 ML PEN SC SCH ×4 (08:19→21:14)
[2019-08-25] MEDS: DAPTOmycin 650 MG in SYRINGE 0 ML IV SCH (14:26)
[2019-08-25] MEDS: FERROUS SULFATE 325 MG TAB PO SCH (21:23)
--- NOTE | 2019-08-25 23:17 | Hospitalist Progress Note ---
Date of Service August 25, 2019 Assessment & Plan (1) Staphylococcus aureus bacteremia: original Blood cultures drawn on 08/18. MRSA PCR positive. Unclear source most recent cultures on 08/22 growing gram positive cocci despite Daptomycin obtained new blood cultures on 08/24: megative on 08/25 WBC normal, no fever no other clear symptoms ID recommends MRI spine to look for osteomyelitis, SOLOMON to look for vegetations possible discitis, will consult ortho spine SOLOMON will likely need to wait until after holiday, would not change treatment at this time Once SOLOMON and ortho consult completed, and if cultures remain positive, may consider transfer to tertiary center. - Chest CT for septic emboli: neg - TTE completed: no vegetations (2) Pulmonary edema: CXR on 08/18 showed cardiomegaly without overt pulmonary edema. Does show left basilar opacities with procalcitonin high; however, this may be due to her bacteremia. originally on Vancomycin but persistently positive cultures, switched to Dapto which won't have lung penetration however, doubt that pneumonia is true source as it should have cleared - Chest CT -> no septic emboli, did not show pneumonia (3) Chest pain: Appears to be at least partially non-cardiac as she does have tenderness to palpation and her prior admission was for similar issue. Patient had recent stress test which was negative for ischemia and symptoms prior not relieved by prior coronary intervention. - Continue carvedilol & reduced isosorbide 120mg. - Continue all other patient medication including oral diltiazem. (4) CKD (chronic kidney disease) stage 3, GFR 30-59 ml/min: Baseline Cr ~1.4. -remains minimally elevated at 1.48 - Cr nearly at baseline - Avoid nephrotoxic agents. - Continue monitoring creatinine (5) T2DM (type 2 diabetes mellitus): A1c was a 6.9% in 07/2019. - ADA diet monitor for hypoglycemia - Sliding scale insulin coverage (6) PAF (paroxysmal atrial fibrillation): In A.fib at this time. Previous anticoagulation with warfarin resulted in a GI bleed with shock. She is known to have extensive diverticulosis. No anticoagulation has been used since that time. - Rates in the 110's initially; now in the 60-80s, irregular - Continue Cardizem CD 180mg daily. (7) Chronic respiratory failure with hypoxia, on home O2 therapy: Reporting continued shortness of breath, though on her home O2. - Continue Albuterol nebs prn - Continue oxygen and Symbicort - Supplemental oxygen as needed to keep oxygenation above 92%. (8) CAD (coronary artery disease): In 07/2019, her nuclear stress test neg for ischemia. - Continue aspirin, plavix, coreg, and statin. - As above for chest pain (9) DVT prophylaxis: (10) Demand ischemia: mild trop bump. has returned to normal, may be atrrubuted to RVR and CKD. UPDATED SISTER ON HOSPITAL COURSE BY PHONE ON 08/25. Subjective Patient reports feeling well. She has no new complaints. Review of Systems Review of Systems: All systems reviewed & are unremarkable except as noted in HPI & below Physical Exam Physical Exam: Constitutional: WD/WN, vitals as above Eyes: PERRL, conjunctivae normal, anicteric sclerae ENMT: external ear and nose normal, oropharynx normal Neck: trachea midline, no thyromegaly Respiratory: normal respiratory effort, lungs clear to auscultation Cardiovascular: Rate/Rhythm: regular rate and + irregularly irregular Heart Sounds: normal S1 and normal S2; no murmur Vessels: no JVD Extremities: normal capillary refill; no edema Gastrointestinal (Abdomen): normal bowel sounds, soft, nontender, no hepatosplenomegaly Musculoskeletal: no cyanosis or clubbing, extremities motor strength 5/5 Skin: no rashes, warm and dry Neurologic: patellar DTR's 2+ bilat, sensation intact and PERRL, EOMI, accommodation nl, no face palsy, no dysarthria Psychiatric: A+Ox3, euthymic affect Lymphatic: no cervical or axillary lymphadenopathy Results & Data Vital Signs (Past 12 Hours) Vital Signs Temp Pulse Pulse Resp BP Pulse Ox 08/25/19 23:11 36.9 C 63 18 137/68 99 08/25/19 22:25 80 18 99 08/25/19 21:20 66 122/69 99 08/25/19 15:00 36.6 C 79 18 145/78 H 97 PG Care Time/CCT Total # of Minutes Spent Total Time Spent with Patient: Total time spent is greater than 50% in coordination of care (as documented) at patient's floor/unit and/or counseling patient: (1) T2DM (type 2 diabetes mellitus) Diabetes 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 transplanted heart: [place] heart Qualified Code(s): I25.10 - Atherosclerotic heart disease of [place] coronary artery without angina pectoris (3) Chest pain Chest pain type: unspecified Qualified Code(s): R07.9 - Chest pain, unspecified
[2019-08-26 05:52] LABS: Creatinine Clr Calc Pharmacy 30.3 ml/min; Est GFR (African American) 28.7; Est GFR (Non-African American) 24.8
[2019-08-26] MEDS: HEPARIN SOD 5,000 UNIT/0.5 ML VIAL SQ SCH ×3 (06:03→20:41)
[2019-08-26] MEDS: FAMOTIDINE 40 MG TABLET PO SCH (08:21)
[2019-08-26] MEDS: POTASSIUM CHLORIDE 20 MEQ TABCR PO SCH (08:21)
[2019-08-26] MEDS: ASPIRIN 81 MG ECTAB PO SCH (08:22)
[2019-08-26] MEDS: ISOSORBIDE MONO EXTENDED REL 60 MG TABCR PO SCH (08:22)
[2019-08-26] MEDS: MAGNESIUM OXIDE 400 MG TAB PO SCH (08:22)
[2019-08-26] MEDS: ESCITALOPRAM OXALATE 10 MG TAB PO SCH (08:22)
[2019-08-26] MEDS: CLOPIDOGREL BISULFATE 75 MG TAB PO SCH (08:22)
[2019-08-26] MEDS: CYANOCOBALAMIN 500 MCG TABLET (VITAMIN B-12) PO SCH (08:22)
[2019-08-26] MEDS: MULTIVITAMIN TAB PO SCH (08:22)
[2019-08-26] MEDS: PRAVASTATIN SOD 40 MG TAB PO SCH (08:22)
[2019-08-26] MEDS: TORSEMIDE 20 MG TAB PO SCH (08:22)
[2019-08-26] MEDS: dilTIAZem HCL 180 MG CAPCR PO SCH (08:22)
[2019-08-26] MEDS: PANTOprazole 40 MG TAB PO SCH (08:22)
[2019-08-26] MEDS: carvediloL 25 MG TAB PO SCH ×2 (08:23→20:43)
[2019-08-26] MEDS: DICLOFENAC SOD 1% GEL 100 GM TUBE EXT SCH ×4 (08:23→20:42)
[2019-08-26] MEDS: INSULIN ASPART 100 UNITS/ML 3 ML PEN SC SCH ×4 (08:29→20:44)
[2019-08-26] MEDS: FLUTICASONE/SALMETEROL (ADVAIR) 500/50 INH 14 PUFF INH SCH ×2 (09:18→20:42)
--- NOTE | 2019-08-26 12:22 | Orthopedic Consultation ---
Date of Consultation August 26, 2019 Assessment & Plan (1) Spondylolisthesis at L5-S1 level: Images: MRI scan studies were reviewed. Both the AP lateral sagittal reconstructions. Axial cuts. She has some spinal stenosis of lumbar spine. She has a spondylolisthesis lumbar spine he has mild degenerative changes. I saw no evidence of significant enhancement or evidence of discitis or osteomyelitis. Most of her radiographic findings in my opinion were degenerative in nature. Assessment: 79-year-old female with other comorbidities. Positive blood cultures. No evidence of my opinion for osteomyelitis or discitis. Plan: Spinal standpoint this is managed totally conservatively no surgical indications since she has minimal pain would not even order a back brace for support. Please call me if there is a change in her clinical Thank you Present on Admission?: Yes History of Present Illness Reason for Consultation: Possible discitis lumbar spine History: Marta is a delightful I saw her on rounds this afternoon approximately 12:30 PM. He is 79 years of age she is alert oriented she has essentially 0 back pain Through my interview she has no associated fever sweats chills. Evidently she has had a fever of unknown origin thinking possibly it was from the lumbar spine. An MRI scan was ordered and thus I was consulted. Attending Physician: Darrick Sethi MD History of Present Illness Patient is been in the hospital for several days working her up for positive blood cultures Allergies Allergy/AdvReac Type Severity Reaction Status Date / Time aspirin Allergy Unknown Unknown Verified 08/16/19 12:51 cefuroxime [From Ceftin] Allergy Unknown Unknown Verified 08/16/19 12:51 Cephalosporins Allergy Unknown Unknown Verified 08/16/19 12:51 doxycycline Allergy Unknown UNKNOWN Verified 08/16/19 12:51 hydrocodone Allergy Unknown Unknown Verified 08/16/19 12:51 neomycin Allergy Unknown Unknown Verified 08/16/19 12:51 propoxyphene Allergy Unknown Unknown Verified 08/16/19 12:51 Sulfa (Sulfonamide Allergy Unknown Unknown Verified 08/16/19 12:51 Antibiotics) metformin AdvReac Mild nausea Verified 08/16/19 12:51 vicodin tabs Allergy Unknown Uncoded 08/16/19 12:51 Home Medications Home Medications Medication Instructions Recorded Confirmed Type nitroglycerin [Nitrostat] 0.4 mg SUBLINGUAL DIRECTED PRN 01/06/19 08/16/19 History clopidogrel 75 mg tablet 75 mg PO DAILY #30 tab 07/19/19 12/16/19 Rx aspirin 81 mg tablet,delayed 81 mg PO DAILY #90 tab 04/22/19 08/16/19 Rx release coenzyme Q10 100 mg tablet 100 mg PO QPM #30 tab 04/22/19 08/16/19 Rx famotidine 40 mg tablet 40 mg PO QAM #90 tab 04/22/19 08/16/19 Rx ferrous sulfate 325 mg (65 mg 325 mg PO HS #90 tab 04/22/19 08/16/19 Rx iron) tablet magnesium oxide 400 mg (as 400 mg PO QAM #30 tab 04/22/19 08/16/19 Rx magnesium oxide) tablet mometasone-formoterol HFA 200 2 puff INHALATION BID #13 gm 04/22/19 08/16/19 Rx mcg-5 mcg/actuation aerosol inhaler multivitamin 1 tab PO QAM #60 tab 04/22/19 08/16/19 Rx pantoprazole 40 mg tablet,delayed 40 mg PO DAILY #90 tab 04/22/19 08/16/19 Rx release pravastatin 80 mg tablet 80 mg PO QAM #90 tab 04/22/19 08/16/19 Rx carvedilol [Coreg] 25 mg PO BID 07/19/19 08/16/19 History diltiazem HCl [Cardizem CD] 180 mg PO DAILY 07/19/19 08/16/19 History escitalopram oxalate 5 mg PO DAILY 07/19/19 08/16/19 History isosorbide mononitrate 120 mg PO BID 07/19/19 08/16/19 History torsemide 20 mg PO DAILY 07/19/19 08/16/19 History diclofenac sodium [Voltaren] 4 g EXT QID #1 tube 07/25/19 08/16/19 Rx albuterol sulfate 2.5 mg/3 mL 2.5 mg INHALATION Q4 PRN #75 ml 07/26/19 08/16/19 Rx (0.083 %) solution for nebulization albuterol sulfate 90 mcg/actuation 2 puff INHALATION Q4H PRN #18 gm 07/26/19 08/16/19 Rx aerosol inhaler cyanocobalamin (vitamin B-12) 500 500 mcg PO DAILY #30 tab 07/26/19 08/16/19 Rx mcg tablet potassium chloride 20 mEq 20 meq PO DAILY #90 tab 07/26/19 08/16/19 Rx tablet,extended release Januvia 50 mg PO DAILY 08/16/19 08/24/19 History Patient History Medical History Anemia Anxiety Arteriosclerotic cardiovascular disease Salazar's esophagus (Acute) CAD (coronary artery disease) CHF (congestive heart failure) (08/04/13) Chronic back pain CKD (chronic kidney disease) stage 3, GFR 30-59 ml/min Degeneration of cervical intervertebral disc Degenerative arthritis of knee (Acute) Diabetes mellitus Disc degeneration, lumbar (Acute) Generalized weakness GERD (gastroesophageal reflux disease) GI bleed HLD (hyperlipidemia) HTN (hypertension) On anticoagulant therapy plavix daily On home oxygen therapy 3L at all times LAINE on CPAP PAF (paroxysmal atrial fibrillation) Pulmonary hypertension, secondary Recurrent falls Renal insufficiency, mild T2DM (type 2 diabetes mellitus) Surgical History H/O aortic valve replacement @ [facility] [place] History of cardiac cath 08/2013 Last cardiac cath demonstrated 2 vessel nonobstructive disease including mild LAD with 40% stenosis in proximal RCA with 40% stenosis and widely patent mid RCA stent. Medical management recommended at time. History of cardiac cath 01/07/2019 coronary angiography, 2 drug eluting stent placed 01/11/19 1 drug eluting stent placed----on plavix History of colonoscopy with polypectomy History of esophagogastroduodenoscopy (EGD) Hiatal hernia and Salazar's History of partial colectomy Secondary to obstruction History of percutaneous coronary intervention 05/24/2011 cardiac cath demonstrated severe single-vessel CAD with 70% mild RCA stenosis treated with PCI using MONTSE History of tooth extraction all teeth removed History of total hysterectomy with bilateral salpingo-oophorectomy (BSO) Family History Sister Cancer Breast cancer Myocardial infarction Brother Myocardial infarction Other Adopted Unknown family medical history Social History Preferred Language: Slovak Communication Ability: Effective Business Solutions Architect Required: No Beliefs That Will Affect Care: None marital status: / Current Living Situation: Alone Current Living Situation Comment: lives in a trailer current occupational status: retired Feels Safe at Home: Yes Smoking Status: Never smoker Second Hand Exposure: Yes ( smoked) ; Hx Alcohol Use: No Hx Substance Use: No caffeine: Yes Dental Care, Regularly: No Physical Activity Frequency: Does not Exercise Seatbelt Use: always Sunscreen Use: No Review of Systems Review of Systems: He denies any fever sweats chills or rigors No significant pain Admits to some chest heaviness not true discomfort As of today no bowel bladder issues No significant back pain Denies neurological deficits Physical Exam Physical Exam: Vital signs are stable including a temperature 36 6 blood pressure normal 130/84 pulse regular about 80 to 84 bpm Abdomen soft nontender No neurological deficit Results & Data Vital Signs (Past 12 Hours) Vital Signs Temp Pulse Pulse Resp BP BP Pulse Ox 08/26/19 10:23 85 20 99 08/26/19 10:18 36.6 C 83 22 130/84 99 08/26/19 05:58 36.6 C 92 H 19 152/83 H 96 08/26/19 04:12 65 18 98 PG Care Time/CCT Total # of Minutes Spent Total Time Spent with Patient: Total time spent is greater than 50% in coordination of care (as documented) at patient's floor/unit and/or counseling patient:
[2019-08-26] MEDS: DAPTOmycin 650 MG in SYRINGE 0 ML IV SCH (13:12)
--- NOTE | 2019-08-26 14:17 | Hospitalist Progress Note ---
Date of Service August 26, 2019 Assessment & Plan (1) Staphylococcus aureus bacteremia: Continued MRSA bacteremia with blood culture from 08/24 now growing Gram(+) cocci. - No clear source: - MRI thoracic & lumbar spine on 08/24 showed a questionable L5/S1 discitis; however, ortho spine does not think this is infectious in nature. - TTE on 08/19 did not show vegetations. - CT chest on 08/19 did not show any pneumonia. - Skin check on 08/26 did not reveal any areas of concern. - On daptomycin per ID - Repeat blood cultures today (2) Pulmonary edema: CXR on 08/18 showed cardiomegaly without overt pulmonary edema. Does show left basilar opacities with procalcitonin high; however, this may be due to her bacteremia. - DuoNebs every 4 hours as needed for shortness of breath. (3) Chest pain: Appears to be non-cardiac as she does have tenderness to palpation and her prior admission was for similar issue. Patient had recent stress test which was negative for ischemia and symptoms prior not relieved by prior coronary intervention. - Continue carvedilol & reduced isosorbide 120mg. - Continue all other patient medication including oral diltiazem. (4) CKD (chronic kidney disease) stage 3, GFR 30-59 ml/min: Baseline Cr ~1.4. - Cr up to 2.2 on 08/18. - Holding diuretic at this time. - Avoid nephrotoxic agents. - Continue monitoring creatinine -> Cr is 1.9 on 08/26. (5) T2DM (type 2 diabetes mellitus): A1c was a 6.9% in 07/2019. - ADA diet - Continue Januvia - Sliding scale insulin coverage (6) PAF (paroxysmal atrial fibrillation): In A.fib at this time. Previous anticoagulation with warfarin resulted in a GI bleed with shock. She is known to have extensive diverticulosis. No anticoagulation has been used since that time. - Rates in the 110's initially; now in the 60s. - Continue Cardizem CD 180mg daily. (7) Chronic respiratory failure with hypoxia, on home O2 therapy: Reporting continued shortness of breath, though on her home O2. - Continue Albuterol nebs prn - Continue oxygen and Symbicort - Supplemental oxygen as needed to keep oxygenation above 92%. (8) CAD (coronary artery disease): In 07/2019, her nuclear stress test neg for ischemia. - Continue aspirin, plavix, coreg, and statin. - As above for chest pain (9) DVT prophylaxis: Heparin Subjective She has some mild extra shortness of breath today and the RN feels she is more fatigued. No LE edema though. Continues to have some chest pain. Reports no fevers/chills, abdominal pain, nausea, or vomiting. Physical Exam Constitutional: WD/WN, vitals as above Eyes: EOM intact bilaterally; no conjunctival abnormality ENMT: external ear and nose normal, oropharynx normal Neck: trachea midline, no thyromegaly normal visual inspection Respiratory: normal respiratory effort, lungs clear to auscultation no respiratory distress Cardiovascular: RRR, no murmur, no edema Gastrointestinal (Abdomen): Inspection/Auscultation: abdomen normal to inspection; abdomen not distended Musculoskeletal: no cyanosis or clubbing, extremities motor strength 5/5 Skin: no rashes, warm and dry Neurologic: moves all extremities and awake Psychiatric: Orientation: alert, oriented to person and cooperative Results & Data Vital Signs (Past 12 Hours) Vital Signs Temp Pulse Pulse Resp BP BP Pulse Ox 08/26/19 10:23 85 20 99 08/26/19 10:18 36.6 C 83 22 130/84 99 08/26/19 05:58 36.6 C 92 H 19 152/83 H 96 08/26/19 04:12 65 18 98 PG Care Time/CCT Total # of Minutes Spent Total Time Spent with Patient: Total time spent is greater than 50% in coordination of care (as documented) at patient's floor/unit and/or counseling patient: (1) Chest pain Chest pain type: unspecified Qualified Code(s): R07.9 - Chest pain, unspecified (2) T2DM (type 2 diabetes mellitus) Diabetes mellitus intermediate designer insulin use: without intermediate designer use (3) CAD (coronary artery disease) Coronary Disease-Associated Artery/Lesion type: [place] artery [place] vs. transplanted heart: [place] heart Associated angina: angina presence unspecified Qualified Code(s): I25.10 - Atherosclerotic heart disease of [place] coronary artery without angina pectoris
[2019-08-26] MEDS ORDERED: SODIUM CHLORIDE 0.9% 1000ML 250 ML IV ONE (17:16)
--- NOTE | 2019-08-26 17:23 | Cardiology Progress Note ---
Date of Service August 26, 2019 Assessment & Plan (1) Gram-positive bacteremia: Blood cultures have persistently been positive for staph. Concern was once again raised for possible endocarditis however: Echocardiogram does not demonstrate overt prosthetic valve involvement on transthoracic study. No valvular insufficiency At this point, without any significant valvular insufficiency a SOLOMON would not change medical management. Should she develop symptoms of volume overload or develop new murmur a repeat transthoracic echocardiogram should be performed and possible SOLOMON thereafter should any valvular insufficiency then be present. Goals will be long-term antibiotic therapies and serial echocardiograms as course progresses We will arrange for outpatient echocardiogram in 1 month. (2) PAF (paroxysmal atrial fibrillation): Patient with past paroxysmal H arrhythmias now currently in atrial fibrillation with mildly elevated ventricular response rate of undetermined duration. Previously determined to be poor high anticoagulation risk heart rates now slowed with medical therapy suspect elevated heart rates are contributing to current complaints. Recent stress testing was negative for ischemia but patient with known coronary disease including past coronary event approximately 7 months. Prior stress testing 1 month ago Notable history is however prior to presentation for fall appear to be mechanical in nature with mild injury question of this is contributing to concerns or issues or whether atrial fibrillation contributed to patient's instability. Rates are controlled Patient continues to have contraindications to anticoagulation (3) Chest pain: Symptoms do not appear to secondary to acute ischemia patient with chronic chest pain. Troponins mildly elevated but flat and consistent with past history. Recent stress testing negative for ischemia and symptoms prior not relieved by prior coronary interventions (4) Elevated troponin: (5) CAD (coronary artery disease): (6) Chronic respiratory failure with hypoxia, on home O2 therapy: (7) Renal failure (ARF), acute on chronic: Uncertain precipitating cause diuretics have been held, blood cultures drawn Creatinine once again trending upward. I suspect she would benefit from IV fluid supplementation I will order 1 L of normal saline to be given overnight and repeat BMP in the a .m. (8) H/O aortic valve replacement with tissue graft: 2007 Subjective Patient seen and examined out of bed in chair currently drinking contrast. States that she is feeling okay today but still weak and tired. Denies any chest pain, shortness of breath, palpitations, lightheadedness, dizziness or syncope. Review of Systems Review of Systems: All systems reviewed & are unremarkable except as noted in HPI & below Physical Exam Physical Exam: General: Awake, alert and oriented x 3. No acute distress. HEENT: Normocephalic, atraumatic. Pupils equal, round and reactive to light and accommodation. Extraocular muscles are intact. Anicteric sclera. Moist mucous membranes. Neck: No JVD. No bruit. Cardiovascular: Regular. Positive S-4. Normal S-1 and S-2. No S-3. 3/6 mid to late systolic ejection murmur, greatest at the right sternal border, second intercostal space with radiation to the bilateral carotids. No rubs. Pulmonary: Clear to auscultation bilaterally. No rales, rhonchi, or wheezing. Abdomen: Bowel sounds x 4, soft. No rebound, guarding or tenderness. No organomegaly. Extremities: No clubbing, cyanosis or edema. +2 pedal pulses bilaterally. Skin: Warm and dry. Results & Data Vital Signs (Past 12 Hours) Vital Signs Temp Pulse Resp BP BP Pulse Ox 08/26/19 15:00 37.5 C 72 18 125/70 98 08/26/19 14:11 95 08/26/19 10:23 85 20 99 08/26/19 10:18 36.6 C 83 22 130/84 99 08/26/19 05:58 36.6 C 92 H 19 152/83 H 96 (1) Chest pain Chest pain type: unspecified Qualified Code(s): R07.9 - Chest pain, unspecified (2) CAD (coronary artery disease) Coronary Disease-Associated Artery/Lesion type: [place] artery [place] vs. transplanted heart: seminole heart Associated angina: angina presence unspecified Qualified Code(s): I25.10 - Atherosclerotic heart disease of seminole coronary artery without angina pectoris
[2019-08-26] MEDS ORDERED: IOVERSOL 100ml IV PRN (17:55)
--- NOTE | 2019-08-26 18:10 | CT Scan Report ---
CT SCAN OF THE ABDOMEN AND PELVIS WITH IV CONTRAST CLINICAL HISTORY: Bacteremia. COMPARISON STUDY: Abdominal CT dated 12/02/2017 and 12/22/2007. TECHNIQUE: Following the IV administration of 70 cc of Optiray 320, CT scan of the abdomen and pelvi s is performed from the lung bases to the proximal femora. Images are reviewed in the axial, sagittal , and coronal planes. IV contrast was administered without complication. Oral contrast was utilized. A dose lowering technique was utilized adhering to the principles of ALARA. CT DOSE: 1810.35 mGy.cm FINDINGS: Lung bases: The heart is enlarged and without pericardial effusion. The coronary arteries are densely calcified. There is trace left pleural effusion. Scarring/atelectasis are noted at both lung bases. No airspace consolidation is seen typical for pneumonia. An indeterminant 8 x 4 cm soft tissue struct ure at the medial left lung base which contains coarse calcifications and is unchanged dating back to 2007. There is a small hiatal hernia Liver: The contrast-enhanced liver is normal in size, contour, and attenuation. There is no intrahepa tic biliary ductal dilatation. The hepatic veins and portal veins are patent. Gallbladder: There are calcified gallstones with no CT evidence of acute cholecystitis. Spleen: Normal in size and attenuation. Pancreas: Atrophic and grossly unremarkable. Adrenal glands: Unremarkable. Kidneys: The contrast enhanced kidneys are atrophic and without hydronephrosis. The kidneys enhance s ymmetrically. Scattered subcentimeter cortical hypodensities likely represent cysts but are too small for definitive characterization. Abdominal vasculature: There is advanced atherosclerotic calcification of the abdominal aorta. A 3.7 cm infrarenal abdominal aortic aneurysm is seen on image #217. Bowel: There is moderate colonic fecal retention. No bowel obstruction is seen. Enteric contrast reac hes the distal small bowel. There is moderate colonic diverticulosis without CT evidence of acute div erticulitis. The appendix is well-visualized and normal. Peritoneum: There is no intraperitoneal free air or abdominal ascites. Lymphadenopathy: None. Pelvic viscera: The bladder is decompressed and a Harrison catheter and cannot be evaluated. The uterus is surgically absent. No adnexal lesion is seen. Skeletal structures: The skeletal structures are osteopenic. There is chronic posttraumatic deformity of the left pubic ring. Lumbosacral spondylosis is observed. Advanced degenerative sclerosis is note d in the sacroiliac joints. No lytic or blastic lesions are seen. IMPRESSION: 1. There are no acute infectious or inflammatory findings in the abdomen or pelvis. 2. Cardiomegaly. 3. Cholelithiasis. 4. An indeterminant structure at the left lung base containing calcifications is unchanged dating valencia k to 2007. 5. Trace left pleural effusion. 6. There is a 3.7 cm infrarenal abdominal aortic aneurysm. 7. Additional findings as above. ACT 112: Positive. There are findings on this exam that require communication between the performing entity and the patient following Patient Test Result Information Act ([place] Act 112) guidelines. Electronically signed by: Ty Martinez M.D. 08/26/2019 6:08 PM
[2019-08-26] MEDS: SODIUM CHLORIDE 0.9% 1000ML 1,000 ML IV SCH (18:18)
[2019-08-26] MEDS: FERROUS SULFATE 325 MG TAB PO SCH (20:43)
[2019-08-27] MEDS: SODIUM CHLORIDE 0.9% 1000ML 1,000 ML IV SCH (05:42)
[2019-08-27 06:03] LABS: Hematocrit (blood only) 22.1 % (37-47); Hemoglobin 7.4 g/dL (12.0-16.0); Mean Corpuscular Hemoglobin 32.2 pg (25-34); Mean Corpuscular Hgb Conc 33.5 g/dL (32-36); Mean Corpuscular Volume 96.1 fL (80-100); Mean Platelet Volume 11.2 fL (7.4-10.4); Platelet Count 146 K/uL (130-400); RDW Coefficient of Variation 16.1 % (11.5-14.5); RDW Standard Deviation 56.1 fL (36.4-46.3); White Blood Count 14.13 K/uL (4.8-10.8)
[2019-08-27] MEDS: HEPARIN SOD 5,000 UNIT/0.5 ML VIAL SQ SCH ×2 (06:18→14:12)
[2019-08-27 06:36] LABS: BUN Creatinine Ratio 14.6 (10-20); Calcium 7.6 mg/dl (8.5-10.1); Creatinine Clr Calc Pharmacy 33.7 ml/min; Est GFR (African American) 32.7; Est GFR (Non-African American) 28.2; Magnesium 2.1 mg/dl (1.8-2.4); Phosphorus 3.1 mg/dl (2.5-4.9); Potassium 4.5 mmol/L (3.5-5.1)
[2019-08-27] MEDS: FLUTICASONE/SALMETEROL (ADVAIR) 500/50 INH 14 PUFF INH SCH ×2 (08:52→20:23)
[2019-08-27] MEDS: carvediloL 25 MG TAB PO SCH ×2 (08:52→20:24)
[2019-08-27] MEDS: PANTOprazole 40 MG TAB PO SCH (08:53)
[2019-08-27] MEDS: ASPIRIN 81 MG ECTAB PO SCH (08:53)
[2019-08-27] MEDS: ESCITALOPRAM OXALATE 10 MG TAB PO SCH (08:54)
[2019-08-27] MEDS: CLOPIDOGREL BISULFATE 75 MG TAB PO SCH (08:54)
[2019-08-27] MEDS: ISOSORBIDE MONO EXTENDED REL 60 MG TABCR PO SCH (08:54)
[2019-08-27] MEDS: PRAVASTATIN SOD 40 MG TAB PO SCH (08:55)
[2019-08-27] MEDS: MULTIVITAMIN TAB PO SCH (08:55)
[2019-08-27] MEDS: dilTIAZem HCL 180 MG CAPCR PO SCH (08:55)
[2019-08-27] MEDS: MAGNESIUM OXIDE 400 MG TAB PO SCH (08:55)
[2019-08-27] MEDS: TORSEMIDE 20 MG TAB PO SCH (08:55)
[2019-08-27] MEDS: FAMOTIDINE 40 MG TABLET PO SCH (08:55)
[2019-08-27] MEDS: POTASSIUM CHLORIDE 20 MEQ TABCR PO SCH (08:56)
[2019-08-27] MEDS: CYANOCOBALAMIN 500 MCG TABLET (VITAMIN B-12) PO SCH (08:56)
[2019-08-27] MEDS: DICLOFENAC SOD 1% GEL 100 GM TUBE EXT SCH ×5 (08:56→20:25)
[2019-08-27] MEDS: INSULIN ASPART 100 UNITS/ML 3 ML PEN SC SCH ×4 (09:05→20:26)
[2019-08-27] MEDS: DAPTOmycin 650 MG in SYRINGE 0 ML IV SCH (14:11)
--- NOTE | 2019-08-27 16:10 | Hospitalist Progress Note ---
Date of Service August 27, 2019 Assessment & Plan (1) Staphylococcus aureus bacteremia: Continued MRSA bacteremia with blood culture from 08/24 now growing Gram(+) cocci. - No clear source: - MRI thoracic & lumbar spine on 08/24 showed a questionable L5/S1 discitis; however, ortho spine does not think this is infectious in nature. - TTE on 08/19 did not show vegetations. - CT chest on 08/19 did not show any pneumonia. - Skin check on 08/26 did not reveal any areas of concern. - On daptomycin per ID - Repeat blood cultures on 08/26 still negative. - Discussed with cardiology on 08/26; no need for SOLOMON. Discussed with [facility] hospitalist and ID who feel ID availability should be there. Planning tranfer if the patient is willing. (2) Pulmonary edema: CXR on 08/18 showed cardiomegaly without overt pulmonary edema. Does show left basilar opacities with procalcitonin high; however, this may be due to her bacteremia. - DuoNebs every 4 hours as needed for shortness of breath. (3) Chest pain: Appears to be non-cardiac as she does have tenderness to palpation and her prior admission was for similar issue. Patient had recent stress test which was negative for ischemia and symptoms prior not relieved by prior coronary intervention. - Continue carvedilol & reduced isosorbide 120mg. - Continue all other patient medication including oral diltiazem. (4) CKD (chronic kidney disease) stage 3, GFR 30-59 ml/min: Baseline Cr ~1.4. - Cr up to 2.2 on 08/18. - Holding diuretic at this time. Was on IV fluids as well, presently stopped. - Avoid nephrotoxic agents. - Continue monitoring creatinine -> Cr is 1.7 on 08/27. (5) T2DM (type 2 diabetes mellitus): A1c was a 6.9% in 07/2019. - ADA diet - Continue Januvia - Sliding scale insulin coverage (6) PAF (paroxysmal atrial fibrillation): In A.fib at this time. Previous anticoagulation with warfarin resulted in a GI bleed with shock. She is known to have extensive diverticulosis. No anticoagulation has been used since that time. - Rates in the 110's initially; now in the 60s. - Continue Cardizem CD 180mg daily. (7) Chronic respiratory failure with hypoxia, on home O2 therapy: On her home O2. - Continue Albuterol nebs PRN - Continue oxygen and Symbicort - Supplemental oxygen as needed to keep oxygenation above 92%. (8) CAD (coronary artery disease): In 07/2019, her nuclear stress test neg for ischemia. - Continue aspirin, plavix, coreg, and statin. - As above for MSK chest pain (9) DVT prophylaxis: Heparin 5000 units SQ Q12h Subjective Doing well today. She denies any shortness of breath, though her breathing seems more labored today. Reports no fevers/chills, chest pain, shortness of breath, abdominal pain, nausea, or vomiting. Physical Exam Constitutional: WD/WN, vitals as above Eyes: EOM intact bilaterally; no conjunctival abnormality ENMT: external ear and nose normal, oropharynx normal Neck: trachea midline, no thyromegaly normal visual inspection Respiratory: + labored breathing; no respiratory distress Auscultation: lungs clear to auscultation bilaterally; no crackles Cardiovascular: RRR, no murmur, no edema Gastrointestinal (Abdomen): Inspection/Auscultation: abdomen normal to inspection; abdomen not distended Musculoskeletal: no cyanosis or clubbing, extremities motor strength 5/5 Skin: no rashes, warm and dry Neurologic: moves all extremities and awake Psychiatric: Orientation: alert, oriented to person and cooperative Results & Data Vital Signs (Past 12 Hours) Vital Signs Temp Pulse Resp BP Pulse Ox 08/27/19 08:00 96 08/27/19 07:36 36.7 C 88 17 121/75 87 L PG Care Time/CCT Total # of Minutes Spent Total Time Spent with Patient: Total time spent is greater than 50% in coordination of care (as documented) at patient's floor/unit and/or counseling patient: (1) Chest pain Chest pain type: unspecified Qualified Code(s): R07.9 - Chest pain, unspecified (2) T2DM (type 2 diabetes mellitus) Diabetes mellitus group home insulin use: without group home use (3) CAD (coronary artery disease) Coronary Disease-Associated Artery/Lesion type: [place] artery [place] vs. transplanted heart: [place] heart Associated angina: angina presence unspecified Qualified Code(s): I25.10 - Atherosclerotic heart disease of [place] coronary artery without angina pectoris
--- NOTE | 2019-08-27 17:05 | Discharge Summary ---
Date of Service August 27, 2019 Principal Diagnosis MRSA bacteremia Discharge Exam Constitutional WD/WN, vitals as above Eyes EOM intact bilaterally; no conjunctival abnormality ENMT external ear and nose normal, oropharynx normal Neck trachea midline, no thyromegaly normal visual inspection Respiratory normal respiratory effort, lungs clear to auscultation + labored breathing; no respiratory distress Auscultation: lungs clear to auscultation bilaterally; no crackles Cardiovascular RRR, no murmur, no edema Gastrointestinal (Abdomen) Inspection/Auscultation: abdomen normal to inspection; abdomen not distended Musculoskeletal no cyanosis or clubbing, extremities motor strength 5/5 Skin no rashes, warm and dry Neurologic moves all extremities and awake Psychiatric Orientation: alert, oriented to person and cooperative Discharge Data Allergies Allergy/AdvReac Type Severity Reaction Status Date / Time aspirin Allergy Unknown Unknown Verified 08/16/19 12:51 cefuroxime [From Ceftin] Allergy Unknown Unknown Verified 08/16/19 12:51 Cephalosporins Allergy Unknown Unknown Verified 08/16/19 12:51 doxycycline Allergy Unknown UNKNOWN Verified 08/16/19 12:51 hydrocodone Allergy Unknown Unknown Verified 08/16/19 12:51 neomycin Allergy Unknown Unknown Verified 08/16/19 12:51 propoxyphene Allergy Unknown Unknown Verified 08/16/19 12:51 Sulfa (Sulfonamide Allergy Unknown Unknown Verified 08/16/19 12:51 Antibiotics) metformin AdvReac Mild nausea Verified 08/16/19 12:51 vicodin tabs Allergy Unknown Uncoded 08/16/19 12:51 Consultations 08/16/19 16:08 Consult Cardiology Routine 08/18/19 20:56 Consult Nephrology Routine 08/19/19 16:40 Consult Infectious Diseases Routine 08/23/19 20:21 Consult Anesthesiology Routine 08/26/19 08:51 Consult Orthopedic Surgery Routine Ordered Studies 08/19/19 14:05 US renal/blad retro comp Routine 08/19/19 15:08 CT chest wo con Routine 08/24/19 08:00 MR lumbar spine wo/w con Routine MR thoracic spine wo/w con Routine 08/26/19 14:44 CT abd pelvis oral and IV con Routine Hospital Course (1) Staphylococcus aureus bacteremia: Continued MRSA bacteremia with blood culture from 08/24 now growing Gram(+) cocci. - No clear source: - MRI thoracic & lumbar spine on 08/24 showed a questionable L5/S1 discitis; however, ortho spine does not think this is infectious in nature. - TTE on 08/19 did not show vegetations. Cardiology feels SOLOMON unnecessary. - CT chest on 08/19 did not show any pneumonia. - Skin check on 08/26 did not reveal any areas of concern. - On daptomycin per ID - 650mg IV daily - Repeat blood cultures on 08/26 still negative. - Discussed with cardiology on 08/26; no need for SOLOMON. Discussed with [facility] hospitalist and ID who feel ID availability should be there. Planning tranfer if the patient is willing. - WBC up on 08/27 from 8 to 14. Unclear why. No change in clinical condition. No fevers or other vital sign changes. (2) Pulmonary edema: CXR on 08/18 showed cardiomegaly without overt pulmonary edema. Does show left basilar opacities with procalcitonin high; however, this may be due to her bacteremia. - DuoNebs every 4 hours as needed for shortness of breath. (3) Chest pain: Appears to be non-cardiac as she does have tenderness to palpation and her prior admission was for similar issue. Patient had recent stress test which was negative for ischemia and symptoms prior not relieved by prior coronary intervention. - Continue carvedilol & reduced isosorbide 120mg. - Continue all other patient medication including oral diltiazem. - The topical Voltaran gel seems to help quite a bit to relieve the pain. (4) CKD (chronic kidney disease) stage 3, GFR 30-59 ml/min: Baseline Cr ~1.4. - Cr up to 2.2 on 08/18. - Was on IV fluids as well, presently stopped. Continue home diuretic. - Avoid nephrotoxic agents. - Continue monitoring creatinine -> Cr is 1.7 on 08/27. (5) T2DM (type 2 diabetes mellitus): A1c was a 6.9% in 07/2019. - ADA diet - Continue Januvia - Sliding scale insulin coverage (6) PAF (paroxysmal atrial fibrillation): In A.fib at this time. Previous anticoagulation with warfarin resulted in a GI bleed with shock. She is known to have extensive diverticulosis. No anticoagulation has been used since that time. - Rates in the 110's initially; now in the 60s. - Continue Cardizem CD 180mg daily. (7) Chronic respiratory failure with hypoxia, on home O2 therapy: On her home O2. - Continue Albuterol nebs PRN - Continue oxygen and Symbicort - Supplemental oxygen as needed to keep oxygenation above 92%. (8) CAD (coronary artery disease): In 07/2019, her nuclear stress test neg for ischemia. - Continue aspirin, plavix, coreg, and statin. - As above for MSK chest pain (9) Anemia: Baseline hgb has been stable around 8.5-9 this admission. - Down to 7.4 on 08/27 with no sign of bleeding or hemolysis. Unclear cause. - If still in the hospital in the morning, will get anemia and hemolysis labs. Will get PM CBC. (10) DVT prophylaxis: Heparin 5000 units SQ Q12h Total Time Total Time Spent Total Time Spent (In Minutes): 50 Discharge Plan Discharge Items Patient Disposition: Transfer Acute Care Hospital Reason For Visit: CHEST PAIN,A FIB RVR Discharge Diagnosis: Persistent MRSA bacteremia Activity: Resume your previous activity Non-emergency contact: Primary Care Provider and Bow String Maker Call non-emergency contact if: your symptoms worsen and your pain is not controlled Follow-up/Referrals: Hilaria Myers CRNP [Primary Care Provider] - Diet: Heart Healthy Addtl Attending Provider Instructions: Please see Discharge Summary. Persistent MRSA bacteremia. Pending Studies at Discharge: Yes (Blood cultures from 08/26) Stand-Alone Forms: Call Back Authorization, [facility] Skilled Items Patient informed of condition?: Yes DNR: No Discharge Level of Care: Other Communicable Disease: Yes (MRSA) Discharge Prognosis: Deteriorating Lines: Peripheral IV Urinary Catheter: No Medications and DC Order Prescriptions: New heparin, porcine (PF) 5,000 unit/0.5 mL Syringe 5,000 unit subcut Q12H Qty: 1 RF: 0 Novolog Flexpen U-100 Insulin 100 unit/mL (3 mL) Insulin Pen See Rx Instructions .ROUTE .COMPLEX Qty: 1 RF: 0 acetaminophen [Mapap (acetaminophen)] 325 mg Tablet 650 mg PO Q4H PRN (Reason: fever) Qty: 1 RF: 0 daptomycin [Cubicin] 500 mg Recon Soln 500 mg Not Applicable UD Qty: 1 RF: 0 Continued albuterol sulfate 2.5 mg /3 mL (0.083 %) solution for nebulization 2.5 mg inhalation Q4 PRN (Reason: Wheezing or Tightness in Chest) Qty: 75 RF: 5 albuterol sulfate [Ventolin HFA] 90 mcg/actuation HFA aerosol inhaler 2 puff inhalation Q4H PRN (Reason: Shortness Of Breath Or Wheezing) Qty: 18 RF: 5 potassium chloride 20 mEq tablet extended release 20 meq PO DAILY Qty: 90 RF: 3 cyanocobalamin (vitamin B-12) 500 mcg tablet 500 mcg PO DAILY Qty: 30 RF: 4 aspirin 81 mg tablet,delayed release (DR/EC) 81 mg PO DAILY Qty: 90 RF: 0 coenzyme Q10 100 mg tablet 100 mg PO QPM Qty: 30 RF: 0 famotidine 40 mg tablet 40 mg PO QAM Qty: 90 RF: 0 ferrous sulfate 325 mg (65 mg iron) tablet 325 mg PO HS Qty: 90 RF: 0 magnesium oxide 400 mg magnesium tablet 400 mg PO QAM Qty: 30 RF: 0 Dulera 200-5 mcg/actuation HFA aerosol inhaler 2 puff inhalation BID Qty: 13 RF: 0 multivitamin tablet 1 tab PO QAM Qty: 60 RF: 0 pantoprazole [Protonix] 40 mg tablet,delayed release (DR/EC) 40 mg PO DAILY Qty: 90 RF: 0 pravastatin 80 mg tablet 80 mg PO QAM Qty: 90 RF: 0 clopidogrel 75 mg tablet 75 mg PO DAILY Qty: 30 RF: 2 nitroglycerin [Nitrostat] 0.4 mg tablet, sublingual 0.4 mg sublingual DIRECTED PRN (Reason: Chest Pain) RF: 0 torsemide 20 mg tablet 20 mg PO DAILY RF: 0 diltiazem HCl [Cardizem CD] 180 mg capsule,extended release 24hr 180 mg PO DAILY RF: 0 isosorbide mononitrate 120 mg tablet extended release 24 hr 120 mg PO BID RF: 0 escitalopram oxalate 5 mg tablet 5 mg PO DAILY RF: 0 diclofenac sodium [Voltaren] 1 % Gel 4 g EXT QID Qty: 1 RF: 2 Changed carvedilol [Coreg] 25 mg tablet 37.5 mg PO BID Qty: 0 RF: 0 Discontinued Januvia 100 mg tablet 50 mg PO DAILY RF: 0 Discharge Orders: Discharge Order (Routine); Ordered 08/27/19 Ordered By: Darrick Sethi Admission Data Admit Date/Time: 08/16/19 14:21 Attending Provider: Darrick Sethi Admit Provider: Edgar Perera. Primary Care Provider: Hilaria Myers. Other Providers: [facility] ; Louie Morales ; Herrera Reyes ; Jessica Hicks ; Karen Arellano ; Mary Marin ; Ellen Velázquez ; Justyna Jc ; Li Coombs ; Monica Roy ; David Staley ; Jermaine Mark ; Matthew Arriaga ; Kevin Fuchs ; Funmi Fuchs ; Yousif Estrada ; Jessica Kat ; Dewayne Oh ; Kvng Casey ; Kavon Reynoso ; Preston Johnson ; Alfie Wahl ; Mary Lou Earl ; Lei Martin ; Sosa Burks ; Cynthia Martin ; Jorge Kelsey ; Randee [place] ; Gee White ; Cheli Her ; Randee Cannon. ; Jeny Bailey ; Pete Payan ; Jocelyn Zavaleta A ; Lisa Hall ; Mandi Romero ; Cheryl Pires A ; Giancarlo Pires V ; Jerrell Ingram ; Ellen Pena ; Toro Burnette ; Rey Savage ; Magnolia Fink ; Stephanie Martinez ; Giancarlo Sanchez ; Rd Earl ; Lux Ruiz. ; Veda Li. ; Mandi Webster ; Matthew Paniagua ; Juliet Ortega. ; Kvng Mayfield. ; Andrea Wahl ; Kalli Jean ; Malvin Fine ; Nicolle Gan ; Andrea Davis ; Juan Andrews [facility]
[2019-08-27 17:27] LABS: Hematocrit (blood only) 24.1 % (37-47); Hemoglobin 7.9 g/dL (12.0-16.0); Mean Corpuscular Hemoglobin 31.9 pg (25-34); Mean Corpuscular Hgb Conc 32.8 g/dL (32-36); Mean Corpuscular Volume 97.2 fL (80-100); Mean Platelet Volume 11.2 fL (7.4-10.4); Platelet Count 174 K/uL (130-400); RDW Coefficient of Variation 16.2 % (11.5-14.5); RDW Standard Deviation 56.5 fL (36.4-46.3); Red Blood Count 2.48 M/uL (4.2-5.4); White Blood Count 17.62 K/uL (4.8-10.8)
[2019-08-27 17:34] LABS: Basophils # (auto) 0.02 K/uL (0-0.2); Basophils % (auto) 0.1 %; Eosinophils # (auto) 0.06 K/uL (0-0.5); Eosinophils % (auto) 0.3 %; Giant Platelets 1+; Immature Granulocytes # (auto) 0.21 K/uL (0.00-0.02); Immature Granulocytes % (auto) 1.2 %; Lymphocytes # (auto) 0.83 K/uL (1.2-3.4); Lymphocytes % (auto) 4.7 %; Monocytes # (auto) 1.25 K/uL (0.11-0.59); Monocytes % (auto) 7.1 %; Neutrophils # (auto) 15.25 K/uL (1.4-6.5); Neutrophils % (auto) 86.6 %
[2019-08-27] MEDS: FERROUS SULFATE 325 MG TAB PO SCH (20:24)
--- NOTE | 2019-09-06 12:14 | Coding Query ---
SEPSIS To promote full compliance with coding requirements relating to patient care, physician participation is requested in all cases of nurse case manager uncertainty. Please assist us with the question(s) below: In responding to this query, please exercise your independent professional judgement. The fact that a question is asked does not imply that any particular answer is desired or expected. We appreciate your clarification on this issue. Both Terms Sepsis and Bacteremia have been used throught the record they can not be used interchangably, please clarify final diagnosis below. ____ (x) Bacteremia (Nonspecific laboratory finding of bacteria in the blood) Specify Organism MRSA (x) Present on Admission () Not present on admission () Unable to clinically determine () Sepsis Specify Organism Specify Associated Condition/Diagnosis () Present on Admission () Not present on admission () Unable to clinically determine () Other, patient has: MTDD
== END 2019-08-27 21:15 | disposition short-term general hospital (02) | DRG 871 ==
LOC: ED 11:32 → SUATTDRO 14:21 → 1E 14:21 → 2S 08-17 14:10 → 4W 08-23 12:41